=== PATIENT | female | born 1965 | race Caucasian/White ===

== ENCOUNTER 2022-12-27 09:26 | Outpatient (OUT) | payer BC, OTHER, SELFPAY ==
[2022-12-27 10:46] LABS: Alanine Aminotransferase 19 U/L (14-59); Albumin Globulin Ratio 0.9; Albumin Level 3.4 g/dL (3.4-5.0); Alkaline Phosphatase 98 U/L (46-116); Anion Gap 16.1; Aspartate Amino Transferase 20 U/L (15-37); Bilirubin Total 0.3 mg/dL (0.2-1.0); Carbon Dioxide 22.7 mmol/L (21.0-32.0); Chloride 105 mmol/L (98-107); Estimated GFR (African America 47 (>=60); Estimated GFR (Non-African Ame 38 (>=60); Glucose 101 mg/dL (74-106); Potassium 3.8 mmol/L (3.5-5.1); Sodium 140 mmol/L (136-145); Total Protein 7.4 g/dL (6.4-8.2)
[2022-12-27 11:11] LABS: Cholesterol 193 mg/dL (<=200); Triglycerides 234 mg/dL (<=150); VLDL CHOLESTEROL 46.8 mg/dL
[2022-12-27 11:12] LABS: Chol HDL Ratio 3.8; HDL Cholesterol 51 mg/dL (40-60); Thyroid Stimulating Hormone 3.409 uIU/mL (0.358-3.740)
== END 2022-12-27 09:27 ==
LOC: LAB 09:26
PROVIDERS: PCP Family Medicine
DX: Z79.899 Other long term (current) drug therapy (principal)
CPT/HCPCS: 36415; 80053; 80061; 84443

== ENCOUNTER 2023-05-16 08:41 | Outpatient (OUT) | payer BC, OTHER, SELFPAY ==
[2023-05-16 10:04] LABS: Creatinine Urine Random 50.93 mg/dL (20.00-300.00); Microalbum Creatinine Ratio Ur 25.5 mg/g (0.0-29.9); Microalbumin Urine Random <1.3 mg/dL (<=30.0)
[2023-05-16 10:35] LABS: Alanine Aminotransferase 17 U/L (14-59); Albumin Globulin Ratio 0.9; Albumin Level 3.5 g/dL (3.4-5.0); Alkaline Phosphatase 124 U/L (46-116); Aspartate Amino Transferase 15 U/L (15-37); BUN Creatinine Ratio 13.1; Bilirubin Total 0.3 mg/dL (0.2-1.0); Calcium 8.8 mg/dL (8.5-10.1); Carbon Dioxide 20.8 mmol/L (21.0-32.0); Chloride 104 mmol/L (98-107); Estimated GFR (African America 45 (>=60); Estimated GFR (Non-African Ame 37 (>=60); Globulin 3.9 g/dL; Glucose 98 mg/dL (74-106); Potassium 3.8 mmol/L (3.5-5.1); Sodium 138 mmol/L (136-145); Total Protein 7.4 g/dL (6.4-8.2)
[2023-05-17 04:07] LABS: Estradiol 41.4 pg/mL (.)
== END 2023-05-16 08:42 | disposition home or self-care (01) ==
LOC: LAB 08:42
PROVIDERS: PCP Internal Medicine; Visit Provider Internal Medicine
DX: R79.89 Other specified abnormal findings of blood chemistry (principal); Z79.890 Hormone replacement therapy
CPT/HCPCS: 36415; 80053; 82043; 82570; 82670

== ENCOUNTER 2023-06-27 08:46 | Outpatient (OUT) | payer BC, OTHER, SELFPAY ==
--- NOTE | 2023-06-27 08:51 | US_ITS ---
The [address] [address] Patient Name: ANIYAH LAY MRN: [facility]:[id number] date: 1965 Sex: F Assigned Patient Location: [place] Current Patient Location: US Accession/Order Number: [id number] Exam Date: 06/27/2023 08:58 Report Date: 06/27/2023 09:58 At the request of: SHAIKH PARAG Procedure: US renal BI EXAMINATION: US renal BI HISTORY: Stage 3A Chronic Kidney Disease N18.31 COMPARISON: No relevant comparison available. TECHNIQUE: Ultrasound examination was performed of the bladder. FINDINGS: Right Kidney: Normal in size and contour. Cortical thinning, the cortex measures 0.9 cm. Increased cortical echotexture with no solid cortical mass. No hydronephrosis or obstructing nephrolithiasis. Height: 4.0 cm Length: 8.8 cm Width: 4.9 cm Left Kidney: Normal in size and contour. Cortical thinning, the cortex measures 0.9 cm. Increased cortical echotexture. Area of isoechogenicity in the midpole cortex measuring 2.0 x 1.9 x 2.0 cm. No hydronephrosis or obstructing nephrolithiasis Height: 4.2 cm Length: 9.9 cm Width: 5.1 cm The urinary bladder volume is 367 mL. Ureteral jets are not visualized US/US renal BI IMPRESSION: 2 cm area of hypoechogenicity left mid pole cortex. Consider follow-up CT exam or MRI without and with contrast for further characterization Bilateral renal cortical atrophy and increased echotexture consistent with known medical renal disease Electronically authenticated by: NETO TAO Date: 06/27/2023 09:58
== END 2023-06-27 08:47 | disposition home or self-care (01) ==
LOC: US 08:47
PROVIDERS: PCP Internal Medicine; Visit Provider Internal Medicine
DX: N18.31 Chronic kidney disease, stage 3a (principal)
CPT/HCPCS: 76775

== ENCOUNTER 2023-07-04 08:56 | Outpatient (OUT) | payer BC, OTHER, SELFPAY ==
--- OUTSIDE RECORDS SUMMARY | 2023-07-04 09:00 | XMS_ITS | CCD ---
Author Name Unknown Address [address] [facility] [address] [place] [address] Organization [facility] Care Team Providers Care Biomedical Engineering Professor Name Role Phone ELIANE BEEBE Admitting Unavailable ELIANE BEEBE Attending Unavailable SANDRA LIZARRAGA Consulting Unavailable Justin Che II Unavailable Christiana Lazaro Unavailable Bahman Meneses Unavailable Ethan Coats Primary Care Unavailable Abimael Parks Attending Unavailable Abimael Parks Admitting Unavailable JORGE L, DR ROONEY Admitting Unavailable JORGE L, DR ROONEY Primary Care Unavailable JORGE L, DR ROONEY Consulting Unavailable JOHANNESBURG, DR ROONEY Attending Unavailable DARIA, DR JAY Osuna Consulting Unavailable BECCA THOMAS Admitting Unavailable BECCA THOMAS Consulting Unavailable BECCA THOMAS Attending Unavailable JORGE L, DR ROONEY Primary Care Unavailable SHAIKH TUTTLE Attending Unavailable Allergies Allergy Classification Reported Allergen(s) Allergy Type Date of Onset Reaction(s) Facility (1 source) tree nut, unspecified; Translations: [TREE NUTS] Propensity to adverse reactions to drug (disorder) 07-28-19 [place] [facility] Rep[facility] (1 source) BEE VENOM PROTEIN (HONEY BEE); Translations: [BEE VENOM PROTEIN (HONEY BEE)] Propensity to adverse reactions to drug (disorder) 11-30-19 [facility] Repository (6 sources) Ciprofloxacin Drug Allergy Unknown Guided Interventions Other (6 sources) gabapentin Drug Allergy Unknown Guided Interventions Other (6 sources) HYDROmorphone Drug Allergy Unknown Guided Interventions Other (6 sources) pregabalin Drug Allergy Unknown Guided Interventions Other (6 sources) codeine, depakote, bactrium, sulfa, bees walnuts Propensity to adverse reactions Unknown Guided Interventions Other (1 source) Acetaminophen / HYDROcodone Drug Allergy 11-03-19 15 [facility] Repository (1 source) bee venom Drug allergy (disorder) 11-30-19 15 [facility] Repository (1 source) Codeine Drug Allergy 11-03-19 15 [facility] Repository (1 source) HYDROmorphone Drug Allergy 11-30-19 15 [facility] Repository (1 source) Sulfamethoxazole / Trimethoprim Drug Allergy 11-03-19 15 [facility] Repository (1 source) Valproate Drug Allergy 11-03-19 15 [facility] Repository (1 source) Misc-Food; Translations: [Misc-Food] Food allergy (disorder) 11-03-19 15 [facility] Repository Medications Current Medications Medication Drug Class(es) Dates Sig (Normalized) Sig (Original) alosetron 0.5 mg oral tablet (1 source) Serotonin-3 Receptor Antagonist Start: 08-01-2020 take 1 tablet by mouth every twenty-four hours Alosetron HCl 0.5 MG 1 tablet Orally daily for 30 days Jul, Active Biotin (3 sources) Biotin Active busPIRone (2 sources) BuSpar Active take 1 tablet by mouth twice nino ly BuSpar 10 MG 1 tablet Orally Twice a day Active Calcium & Magnesium Carbonates (3 sources) Calcium & Magnes ium Carbonates Active Centrum Silver 50+Women (1 source) Centrum Silver 5 0+Women Active Citalopram (2 sources) Serotonin Reuptake Inhibitor Citalopram Hydrobrom edith Active take 1 tablet by benedicto th every twenty-four hours Citalopram Hydrobromide 20 MG 1 tablet Orally Once a day Active dicyclomine hydrochloride 20 mg oral tablet (5 sources) Anticholinergic Start: 04-30-2018 take 1 tablet by mouth every twenty-four hours Dicyclomine HCl 20 mg 1 tablet Orally once a day for 30 days Apr, Active take 1 tablet by benedicto th every eight hours Dicyclomine HCl 20 MG 1 tablet Orally Th ree times a day Active Elderberry preparation (3 sources) Elderberry Activ e [id number] 0.3 ml EPINEPHrine 1 mg/ml auto-injector (1 source) alpha-Adrenergic Agonist, beta-Adrenergic Agonist, Catecholamine EPINEPHrine 0.3 MG/0.3ML as directed Injection Active 1 ml erenumab-aooe 70 mg/ml auto-injector (1 source) inject 70 mg by subcutaneous injection every month Aimovig 70 MG/ML as directed Subcutaneous ONCE A MONTH Active estrogens, conjugated (detention) 0.625 mg oral tablet (6 sources) Estrogen take 1 tablet by mouth every twenty-four hours Premarin 0.625 MG 1 tablet Orally Once a day for 30 Active Magnesium (3 sources) Magnesium Active Multi For Her 50+ (3 sources) Multi For Her 50 + Active mupirocin 0.02 mg/mg topical ointment (1 source) RNA Synthetase Inhibitor Antibacterial Start: Mupirocin 2 % 1 application Externally Twice a day for 5 day(s) Jun, Active omeprazole 20 mg delayed release oral capsule (4 sources) Proton Pump Inhibitor Start: take 1 capsule by mouth once daily Omeprazole 20 MG 1 capsule 30 minutes before morning meal Orally Once a day for 90 days Oct, Active 24 hr paliperidone 6 mg extended release oral tablet (4 sources) Atypical Antipsychotic take 1 tablet by mouth every twenty-four hours Paliperidone ER 6 MG 1 tablet in the morning Orally Once a day Active take 1 tablet by benedicto th every twenty-four hours Paliperidone ER 3 MG 1 tablet in the morning Orally Once a day Active pramoxine hydrochloride 10 mg/ml rectal foam (1 source) Start: 06-17-2019 Proctofoam 1 % as directed Rectal PRN for 30 day(s) Jun, Active sucralfate 1000 mg oral tablet (4 sources) Aluminum Complex Start: 08-27-2021 take 1 tablet by mouth every six hours Sucralfate 1 GM 1 tablet on an empty stomach Orally qid for 90 day(s) Aug, Active Carafate Active take 1 capsule by mouth twice da inna Sucralfate 1 GM 1 capsule Oral twice times a day for 30 days Active tiZANidine (1 source) Central alpha-2 Adrenergic Agonist tiZANidine HCl Activ e topiramate 100 mg oral tablet (6 sources) take 1 tablet by mouth every twenty-four hours Topamax 100 MG 1 tablet Orally Once a day Active Topamax Active take 1 capsule by mo uth three times daily Topiramate 100 MG 1 capsule Oral TID for 30 Active traZODone hydrochloride 50 mg oral tablet (4 sources) Serotonin Reuptake Inhibitor take 1-2 tablets by mouth once daily traZODone HCl 50 MG 1-2 TABLETS Orally Once a day Active Turmeric extract (3 sources) Turmeric Active Problems Active Problems Problem Classification Problem Date Documented Da te Episodic/Chronic Abdominal pain (12 sources) Right upper quadrant pain; Translations: [Right upper quadrant pain] Episodic Anal and rectal conditions (6 sources) Rectal pain; Translations: [Other specified diseases of anus and rectum] Episodic Chronic kidney disease (6 sources) Chronic kidney disease stage 2; Translations: [Chronic kidney disease, stage 2 (mild)] Chronic Esophageal disorders (10 sources) Gastroesophageal reflux disease; Translations: [Gastro-esophageal reflux disease without esophagitis] Onset: 2 Resolved: 2 Chronic Gastritis and duodenitis (6 sources) Gastritis; Translations: [Gastritis, unspecified, without bleeding] Episodic Gastrointestinal hemorrhage (18 sources) Dark stools; Translations: [Melena] Episodic Headache; including migraine (6 sources) Headache; Translations: [Headache] Episodic Hemorrhoids (6 sources) Hemorrhoids; Translations: [Unspecified hemorrhoids] Episodic Intestinal infection (12 sources) Clostridial enteric disease; Translations: [Enterocolitis due to Clostridium difficile, not specified as recurrent] Episodic Malaise and fatigue (12 sources) Fatigue; Translations: [Other fatigue] Episodic Nausea and vomiting (12 sources) Vomiting; Translations: [Vomiting, unspecified] Episodic Noninfectious gastroenteritis (12 sources) Microscopic colitis; Translations: [Other specified noninfective gastroenteritis and colitis] Episodic Other and unspecified benign neoplasm (6 sources) Lipoma (clinical); Translations: [Benign lipomatous neoplasm, unspecified] Episodic Other gastrointestinal disorders (6 sources) Irritable bowel syndrome with diarrhea; Translations: [Irritable bowel syndrome with diarrhea] Chronic Other gastrointestinal disorders (6 sources) Heartburn; Translations: [Heartburn] Episodic Other gastrointestinal disorders (6 sources) Swollen abdomen; Translations: [Abdominal distension (gaseous)] Episodic Other gastrointestinal disorders (12 sources) Diarrhea; Translations: [Diarrhea, unspecified] Episodic Other gastrointestinal disorders (12 sources) Constipation; Translations: [Constipation, unspecified] Episodic Other liver diseases (6 sources) Increased creatine kinase level; Translations: [Abnormal levels of other serum enzymes] Episodic Other nervous system disorders (6 sources) Burning sensation; Translations: [Other disturbances of skin sensation] Episodic Other nutritional; endocrine; and metabolic disorders (6 sources) Weight loss; Translations: [Abnormal weight loss] Episodic Other skin disorders (6 sources) Rash and other nonspecific skin eruption; Translations: [Rash] Episodic Regional enteritis and ulcerative colitis (6 sources) Pseudopolyposis of colon; Translations: [Inflammatory polyps of colon without complications] Chronic Unclassified (3 sources) LOW BACK PAIN, UNSPECIFIED; Translations: [LOW BACK PAIN, UNSPECIFIED] Onset: Past or Other Problems Problem Classification Problem Date Documented Da te Episodic/Chronic Open wounds of extremities (1 source) Laceration without foreign body of left middle finger without damage to nail, initial encounter Onset: 07-12-2021 Resolved: 07-12-2021 Episodic Other circulatory disease (4 sources) Other specified symptoms and signs involving the circulatory and respiratory systems; Translations: [OTH SPEC SX SIGNS INVLV CIRC RS] Onset: 07-02-2022 Episodic Other gastrointestinal disorders (2 sources) Diarrhea, unspecified Onset: 10-16-2021 Resolved: 01-17-2022 Episodic Sprains and strains (1 source) Sprain of other ligament of left ankle, initial encounter Onset: 07-04-2021 Resolved: 07-04-2021 Episodic Unclassified (1 source) LOW BACK PAIN, UNSPECIFIED; Translations: [LOW BACK PAIN, UNSPECIFIED] Onset: 06-07-2022 Results Test Name Value Interpretation Reference Range Facil ity XR LSPINE MIN 4 VIEWSon 05-15 XR LSPINE MIN 4 VIEWS EXAMINATION: XR LSPINE MIN 4 VIEWS HISTORY: Low back pain COMPARISON: No relevant comparison available. FINDINGS: BONES: Slight left convex curvature of lumbar spine. Suspect bilateral pars interarticularis fractures at L5-S1, likely intraluminal. No convincing acute fractures. Mild degenerative facet arthropathy L4-L5, L5-S1.. DISC SPACES: No significant disc height narrowing, subluxation, or endplate abnormality. PARASPINOUS: Negative. No paraspinous abnormality is seen. OTHER: Negative. IMPRESSION: 1. No appreciable acute abnormality. 2. Mild degenerative changes of lower lumbar spine. 3. 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 No anterior listhesis of L5, but this could be contributing to low back pain. Electronically authenticated by: JAY HUFF Date: 2022-06-07 12:11 Normal [facility] B-Type Natriuretic Peptideon 10-10-2021 Natriuretic peptide B (Bld) [Mass/Vol] 64.0 pg/mL Normal 5-100 [facility] Comment on above: Result Comment: PERF ORMED BY: [place] [address] PATHOLOGIST DENTURE WAXER SHIMA SY M.D. Performed By: #### C K, CKMB, CBC, BMP, BNP #### [address] Basic Metabolic Panelon 09-13 Calcium [Mass/Vol] 9.3 mg/dL Normal 8.2-10.2 [facility] Comment on above: Performed By: #### C K, CKMB, CBC, BMP, BNP #### [address] Chloride [Moles/Vol] 104 mmol/L Normal 95-114 [facility] Comment on above: Performed By: #### C K, CKMB, CBC, BMP, BNP #### [address] CO2 [Moles/Vol] 19.9 mmol/L Low 22.0-30.0 [facility] Comment on above: Performed By: #### C K, CKMB, CBC, BMP, BNP #### [address] Creatinine [Mass/Vol] 1.27 mg/dL High 0.44-1.03 [facility] Comment on above: Performed By: #### C K, CKMB, CBC, BMP, BNP #### [address] Creatinine Clr Calc Pharmacy 45.75 Normal [facility] Comment on above: Result Comment: PERF ORMED BY: [place] [address] PATHOLOGIST DENTURE WAXER SHIMA SY M.D. Performed By: #### C K, CKMB, CBC, BMP, BNP #### [address] Estimated GFR ( Demetra 52 Normal [facility] Comment on above: Result Comment: GFR estimated reference range: According to KDOQI guidelines, <60 ml/min/1.73m2 is sufficient to diagnose a patient with chronic kidney disease. Performed By: #### C K, CKMB, CBC, BMP, BNP #### [address] Estimated GFR (Non- Am 43 [facility] Comment on above: Performed By: #### C K, CKMB, CBC, BMP, BNP #### [address] Glucose [Mass/Vol] 96 mg/dL Normal 70-100 [facility] Comment on above: Result Comment: Colp Glucose Reference Range is dependent on time and content of last meal. Glucose of more than 200 mg/dL in a nonstressed, ambulatory subject supports the diagnosis of Diabetes Mellitus. ADA recommended reference range Performed By: #### C K, CKMB, CBC, BMP, BNP #### [address] Potassium [Moles/Vol] 3.7 mmol/L Normal 3.5-5.1 [facility] Comment on above: Performed By: #### C K, CKMB, CBC, BMP, BNP #### [address] Sodium [Moles/Vol] 135 mmol/L Low 136-146 [facility] Comment on above: Performed By: #### C K, CKMB, CBC, BMP, BNP #### [address] Urea nitrogen [Mass/Vol] 17 mg/dL Normal 9-23 [facility] Comment on above: Performed By: #### C K, CKMB, CBC, BMP, BNP #### [facility] [address] COVID-19 Antigenon 2 COVID-19 Antigen Healthcare Worker?: N Bella Reference Bella Reference Negative SARS-CoV+SARS-CoV-2 (COVID-19) Ag [Presence] in Respiratory specimen by Rapid immunoassay Negative for SARS Antigen by BLAYNE COVID19 Blank Space Bella Disclaimer Negative results, from patients with symptom Bella Disclaimer onset beyond five days, should be treated as Bella Disclaimer presumptive and confirmation with a molecular Bella Disclaimer assay, if necessary, for patient management, Bella Disclaimer may be performed. Negative results do not rule Bella Disclaimer out COVID-19 and should not be used as the sole Bella Disclaimer basis for treatment or patient management Bella Disclaimer decisions, including infection control decisions. Bella Disclaimer Negative results should be considered in the Bella Disclaimer context of a patient's recent exposures, history Bella Disclaimer and the presence of clinical signs and symptoms Bella Disclaimer consistent with COVID-19. COVID19 Blank Space Bella Disclaimer The Bella SARS Antigen BLAYNE does not differentiate Bella Disclaimer between SARS-CoV and SARS-CoV-2. COVID19 Blank Space Bella Disclaimer This test was developed and its performance Bella Disclaimer characteristic determined by [facility] and Bella Disclaimer validated at [facility]. This Bella Disclaimer test has not been FDA cleared or approved. This Bella Disclaimer test has been authorized by FDA under an Emergency Use Bella Disclaimer Authorization (EUA). This test has been validated Bella Disclaimer in accordance with the FDA's Guidance Document (Policy Bella Disclaimer for Diagnostics Testing in Laboratories Certified to Bella Disclaimer Perform High Complexity Testing under CLIA prior to Bella Disclaimer Emergency Use Authorization for Coronavirus Bella Disclaimer iseas during the Public Health Emergency) Bella Disclaimer issued on October 14, 2019. This test is only authorized Bella Disclaimer for the duration of time the declaration that Bella Disclaimer circumstances exist justifying the authorization of Bella Disclaimer the emergency use of in vitro diagnostic tests for Bella Disclaimer detection of SARS-CoV-2 virus and/or diagnosis of Bella Disclaimer COVID-19 infection under section 564(b)(1) of the Bella Disclaimer Act, 21 U.S.C. 360bbb-3(b)(1), unless the Bella Disclaimer authorization is terminated or revoked sooner. PERFORMED BY: [place] [address] PATHOLOGIST DENTURE WAXER SHIMA SY M.D. Normal [facility] Comment on above: Performed By: #### F CARLA, COVID-19 BELLA, SOFIANEG #### [facility] [address] [place] [address] Complete Blood Count Auto Di ffon 10-10-2021 Basophils (Bld) [#/Vol] 0.1 10*3/uL Normal 0.0-0.2 [facility] Comment on above: Result Comment: PERF ORMED BY: [place] [address] PATHOLOGIST DENTURE WAXER SHIMA SY M.D. Performed By: #### C K, CKMB, CBC, BMP, BNP #### [facility] [address] [place] [address] Basophils/100 WBC (Bld) 1.4 % Normal . [facility] Comment on above: Performed By: #### C K, CKMB, CBC, BMP, BNP #### [address] Eosinophils (Bld) [#/Vol] 0.2 10*3/uL Normal 0.0-0.45 [facility] Comment on above: Performed By: #### C K, CKMB, CBC, BMP, BNP #### [address] Eosinophils/100 WBC (Bld) 2.3 % Normal . [facility] Comment on above: Performed By: #### C K, CKMB, CBC, BMP, BNP #### [address] Erythrocyte distribution width (RBC) [Ratio] 13.2 % Normal 11.9-15.3 [facility] Comment on above: Performed By: #### C K, CKMB, CBC, BMP, BNP #### [address] Hematocrit (Bld) [Volume fraction] 41.5 % Normal 34.0-46.4 [facility] Comment on above: Performed By: #### C K, CKMB, CBC, BMP, BNP #### [address] Hemoglobin (Bld) [Mass/Vol] 13.8 g/dL Normal 11.8-15.4 [facility] Comment on above: Performed By: #### C K, CKMB, CBC, BMP, BNP #### [address] Lymphocytes (Bld) [#/Vol] 3.6 10*3/uL Normal 1.00-4.8 [facility] Comment on above: Performed By: #### C K, CKMB, CBC, BMP, BNP #### [address] Lymphocytes/100 WBC (Bld) 39.0 % Normal . [facility] Comment on above: Performed By: #### C K, CKMB, CBC, BMP, BNP #### [address] MCH (RBC) [Entitic mass] 30.7 pg Normal 24.7-34.3 [facility] Comment on above: Performed By: #### C K, CKMB, CBC, BMP, BNP #### [address] MCV (RBC) [Entitic vol] 91.9 fL Normal 80-100 [facility] Comment on above: Performed By: #### C K, CKMB, CBC, BMP, BNP #### [address] Mean Corpuscular HGB Conc 33.4 g/dL Normal 32.0-35.0 [facility] Comment on above: Performed By: #### C K, CKMB, CBC, BMP, BNP #### [address] Monocytes (Bld) [#/Vol] 0.8 10*3/uL Normal 0.0-0.8 [facility] Comment on above: Performed By: #### C K, CKMB, CBC, BMP, BNP #### [address] Monocytes/100 WBC (Bld) 9.0 % Normal . [facility] Comment on above: Performed By: #### C K, CKMB, CBC, BMP, BNP #### [address] Neutrophils (Bld) [#/Vol] 4.4 10*3/uL Normal 1.8-7.7 [facility] Comment on above: Performed By: #### C K, CKMB, CBC, BMP, BNP #### [address] Neutrophils/100 WBC (Bld) 48.3 % Normal . [facility] Comment on above: Performed By: #### C K, CKMB, CBC, BMP, BNP #### [address] Nucleated RBC/100 WBC (Bld) [Ratio] 0.1 % Normal 0-0.5 [facility] Comment on above: Performed By: #### C K, CKMB, CBC, BMP, BNP #### [address] Platelet mean volume (Bld) [Entitic vol] 7.0 fL Normal 6.3-10.7 [facility] Comment on above: Performed By: #### C K, CKMB, CBC, BMP, BNP #### [address] Platelets (Bld) [#/Vol] 237 10*3/uL Normal 150-450 [facility] Comment on above: Performed By: #### C K, CKMB, CBC, BMP, BNP #### [address] RBC (Bld) [#/Vol] 4.51 10*6/uL Normal 3.60-5.00 [facility] Comment on above: Performed By: #### C K, CKMB, CBC, BMP, BNP #### [address] WBC (Bld) [#/Vol] 9.1 10*3/uL Normal 4.5-11.0 [facility] Comment on above: Performed By: #### C K, CKMB, CBC, BMP, BNP #### [address] Creatine Kinaseon 10-10-2021 CK [Catalytic activity/Vol] 69 U/L Normal 22-269 [facility] Comment on above: Performed By: #### C K, CKMB, CBC, BMP, BNP #### [address] Creatinine Kinase MBon 10-10 CK.MB [Mass/Vol] 3.1 ng/mL Normal 0.6-6.3 [facility] Comment on above: Performed By: #### F CARLA, COVID-19 BELLA, SOFIANEG #### [facility] [address] [place] [address] CKMB Relative Index 4.4 % High 0.00-2.50 [facility] Comment on above: Result Comment: PERF ORMED BY: [place] [address] PATHOLOGIST DENTURE WAXER SHIMA SY M.D. Performed By: #### F SANDER AGUIRREID-19 BELLA, SOFIANEG #### [facility] [address] [place] [address] ECG 12 lead ECGon 10-10-2021 ECG 12 lead ECG [facility] [place] [address] [place] [address] Electrocardiograph Report Signed Patient: Мария Roman MR#: [id number] : 1965 Acct:[id number] Age/Sex: 55 / F ADM Date: 10/10/21 Loc: ER Room: Type: [facility] ER Attending Dr: Ordering Provider: Abimael Parks DO Date of Service: 10/10/21 ECG/ECG 12 lead ECG: Chest Pain Copies to: Test Reason : Blood Pressure : 158/100 mmHG Vent. Rate : 087 BPM Atrial Rate : 087 BPM P-R Int : 156 ms QRS Dur : 082 ms QT Int : 396 ms P-R-T Axes : 082 077 057 degrees QTc Int : 476 ms Normal sinus rhythm Normal ECG When compared with ECG of 10-FEB-2014 18:15, T wave inversion no longer evident in Anterior leads Confirmed by ABIMAEL PARKS DO ([id number]), features editor Trent Garay ([id number]) on 10/11/2021 11:15:22 AM Referred By: Electronically Signed By:ABIMAEL PARKS DO Transcribed By: MUS Signed By Abimael Parks DO 1115 Normal [facility] Influenza A and B Antigenon 10-10-2021 Influenza A and B Antigen Note 6 be below the detection limit of the test. Note 4 Infection due to influenza cannot be ruled-out Note 5 because the antigen present in the sample may Flu A Result Negative for Influenza A Antigen Flu B Result Negative for Influenza B Antigen Note 8 Reference range = Negative Note 1 Note2 Culture or molecular confirmation of negative Note 3 samples is recommended. Note 7 PERFORMED BY: [place] [address] PATHOLOGIST DENTURE WAXER SHIMA SY M.D. Normal [facility] Comment on above: Performed By: #### Conchis AGUIRRE COVID-19 BELLA, SOFIANEG #### [address] Bella Ag Negativeon 10-11-19 22 Bella Ag Negative Negative Normal Negative [facility] Comment on above: Result Comment: This is a duplicate Bella SARS Antigen (BLAYNE) result to be used for statistical tracking purpose only. PERFORMED BY: [place] [address] PATHOLOGIST DENTURE WAXER SHIMA SY M.D. Performed By: #### Conchis AGUIRRE COVID-19 BELLA, SOFIANEG #### [address] Troponin I High Sensitivityo n 10-10-2021 Troponin I High Sensitivity 12 pg/mL Normal 0-15 [facility] Comment on above: Result Comment: PERF ORMED BY: [place] [address] PATHOLOGIST DENTURE WAXER SHIMA SY M.D. Performed By: #### H S TROP #### [facility] [address] [place] [address] [place] XR chest 1V portableon 10-10 XR chest 1V portable [facility] [place] [address] [place] [address] XRay Report Signed Patient: Мария Roman MR#: [id number] : 1965 Acct:[id number] Age/Sex: 55 / F ADM Date: 10/10/21 Loc: ER Room: Type: [facility] ER Attending Dr: Ordering Provider: Abimael Parks DO Date of Service: 10/10/21 XR/XR chest 1V portable: Chest Pain Copies to: Abimael Hernadez Kasey XR chest 1V portable 10/10/2021 6:45 PM SIGNS AND SYMPTOMS: Left-sided chest pain radiating into left arm with dizziness PROTOCOL: Frontal radiograph of the chest COMPARISON: None FINDINGS: The trachea is midline. The heart and mediastinal structures are within normal limits. The lung parenchyma is clear. The bony thorax is intact. There is a dextro convex curvature of the thoracic spine. XR/XR chest 1V portable IMPRESSION: No acute cardiopulmonary pathology. Impression dictated by: David Walker M.D.10/10/2021 7:52 PM Dictation Location: [place] [address] Transcribed By: [facility] 10/10/211951 Dictated By: David Walker II, MD 10/10/211949 Signed By: 10/10/211951 [facility] XR ANKLE LEFT 3+ VIEWS ([place] [facility]on [facility]-29-2021 XR ANKLE LEFT 3+ VIEWS (STANDARD) EXAMINATION: XR ANKLE LEFT 3+ VIEWS (STANDARD) 07/29/2021 8:44 pm HISTORY: ORDERING SYSTEM PROVIDED HISTORY: pain left ankle post fall, TECHNOLOGIST PROVIDED HISTORY: Injury/Trauma Reason for exam: pain Cancer History: u Surgery, RadiationHistory: u Encounter Type: Initial Mechanism of injury: fall ORDERING SYSTEM PROVIDED DIAGNOSIS CODES: COMPARISON: None. FINDINGS: Three views are provided which demonstrate normally aligned ankle mortise without definite fractures or dislocations. Base of the 5th metatarsal appears intact. No significant soft tissue swelling, calcifications or radiopaque foreign bodies. IMPRESSION: No obvious fractures or dislocations. [facility] Workstation ID: [id number] Dictated by: LOULOU TREVINO on FriJul 29, 2021 8:55:54 PM EST Transcribed by: DARYA SCHILLING on FriJul 29, 2021 8:57:24 PM EST Finalized by: LOULOU TREVINO on FriJul 29, 2021 10:03:27 PM EST [facility] Comment on above: Order Comment: Injur y/Trauma or Illness?:Injury/Trauma How long have you had these symptoms (acute/chronic)?:Acute Reason for exam?:pain History of cancer?:u Surgeries, chemotherapy, or radiation?:u Type of Exam?:Initial Mechanism of injury?:fall Vital Signs Date Time Vital Sign Value Performing Clinician Facility 01-17-2022 16:30-0400 Body height 168.91 cm Bahman Meneses [facility] Other 01-17-2022 16:30-0400 Body mass index (BMI) [Ratio] 21.62 kg/m2 Bahman Meneses [facility] Other 01-17-2022 16:30-0400 Body weight 61.69 kg Bahman Meneses Other [facility] Other 10-16-2021 16:45-0400 Body height 168.91 cm Bahman Meneses [facility] Other 10-16-2021 16:45-0400 Body mass index (BMI) [Ratio] 20.98 kg/m2 Bahman Meneses Other [facility] Other 10-16-2021 16:45-0400 Body weight 59.88 kg Bahman Meneses Other [facility] Other 07-12-2021 11:05-0500 Body height 168.91 cm Christiana Iveth Other [facility] Other 07-12-2021 11:05-0500 Body temperature 97.5 [degF] Christiana Ginty Other [facility] Other 07-12-2021 11:05-0500 Diastolic blood pressure 106 mm[Hg] Christiana Ginty Other [facility] Other 07-12-2021 11:05-0500 Respiratory rate 18 /min Christiana Ginty Other [facility] Other 07-12-2021 11:05-0500 SaO2% (BldA) [Mass fraction] 98 % Christiana Ginty Other [facility] Other 07-12-2021 11:05-0500 Systolic blood pressure 153 mm[Hg] Christiana Ginty Other [facility] Other 07-04-2021 12:00-0500 Body height 168.91 cm [employer] Other [facility] Other 07-04-2021 12:00-0500 Body mass index (BMI) [Ratio] 17.88 kg/m2 [employer] Other [facility] Other 07-04-2021 12:00-0500 Body weight 51.03 kg [employer] Other [facility] Other Encounters Encounter Date Encounter Type Care Provider Facility Start: 06-16-2023 End: 06-16-2023 ambulatory SHAIKH PARAG Not Available Start: 07-02-2022 End: 07-03-2022 ambulatory BECCA THOMAS Facility:[facility] Start: 06-07-2022 End: 06-08-[address] ETHAN COATS Facility:[facility] Start: 01-28-2022 End: 01-28-2022 ambulatory Bahman Meneses [facility] Other Start: 01-28-2022 Telephone encounter Bahman Bentley [facility] Start: 01-17-2022 End: 01-17-2022 ambulatory Bahman Meneses Other [facility] Other Start: 01-17-2022 Office outpatient visit 15 minutes Bahman Meneses [facility] Start: 11-09-2021 End: 11-09-2021 ambulatory Bahman Meneses Other [facility] Other Start: 11-09-2021 Telephone encounter Bahman Bentley [facility] Start: 10-16-2021 End: 10-16-2021 ambulatory Bahman Meneses Other [facility] Other Start: 10-16-2021 Office outpatient visit 15 minutes Bahman Meneses [facility] Start: 10-10-2021 End: 10-11-2021 Emergency department patient visit [facility] Facility:[facility] Start: 07-28-2021 End: 08-04-2021 Evaluation and management of inpatient [facility] Start: 07-12-2021 End: 07-12-2021 ambulatory Christiana Lazaro Other [facility] Other Start: 07-12-2021 Office outpatient visit 15 minutes Christiana Lazaro [facility] Start: 07-04-2021 End: 07-04-2021 ambulatory Justin [place] [facility] Other [facility] Other Start: 07-04-2021 Office outpatient ne w 30 minutes Justin [place] [facility] Immunizations Immunization Date Immunization Notes Care Provider Fa adrián 07-12-2021 tetanus and diphther ia toxoids, adsorbed, preservative free, for adult use (5 Lf of tetanus toxoid and 2 Lf of diphtheria toxoid) Christiana Ginty Other [facility] Other Payers Date Payer Category Payer Unknown [id number] 1965 Unknown [id number] 1965 Unknown [id number] 1965 Unknown [id number] 1965 Unknown [id number] 1961 Unknown [id number] Medicare [id number] 2.1 [id number] Social History Date Type Detail Facility Unknown if ever smoked [facility] Other Sex Assigned At Sex Assigned At Bir th [facility] Other Evaluation note 01-28-2022 Note Date & Type Note Facility 01-28-2022 Evaluation note Encounter Date Diagnosis Assessment Notes Jan, GERD (gastroesop hageal reflux disease) (ICD-10 - K21.9) [facility] Other Evaluation note 01-17-2022 Note Date & Type Note Facility 01-17-2022 Evaluation note Encounter Date Diagnosis Assessment Notes Jan, Diarrhea (ICD-10 - R19.7) Continue Dicyclomine Jan, GERD (gastroesoph ageal reflux disease) (ICD-10 - K21.9) Continue Omeprazole without change [facility] Other Evaluation note 11-09-2021 Note Date & Type Note Facility 11-09-2021 Evaluation note Encounter Date Diagnosis Assessment Notes Oct, GERD (gastroesop hageal reflux disease) (ICD-10 - K21.9) [facility] Other Evaluation note 10-16-2021 Note Date & Type Note Facility 10-16-2021 Evaluation note Encounter Date Diagnosis Assessment Notes Oct, Diarrhea, unspecified (ICD-10 - R19.7) CONTINUE DICYCLOMINE DIRECTED RTO 3 MONTHS Oct, GERD (gastroesophag eal reflux disease) (ICD-10 - K21.9) STOP CARAFATE [facility] Other Evaluation note 07-12-2021 Note Date & Type Note Facility 07-12-2021 Evaluation note Encounter Date Diagnosis Assessment Notes Jun, Laceration of left middle finger without foreign body without damage to nail, initial encounter (ICD-10 - S61.213A) -5 sutures were placed in finger today -Tetanus injection provided in office -Return to UC or f/u with PCP for removal in 7-10 days -Keep dressing in place for the next 48 hours, unless it gets dirty or wet, then change dressing, apply nonstick telfa -After 48 hours may keep DIE DEVELOPER unless risk of getting dirty or irritated or if it begins to drain -Wash wound BID with warm soapy water, avoid scrubbing, pat dry -May wash hands and shower as normal, but do not soak hand in water, avoid dirty dish water, tubs, etc. -Use rx of Mupirocin ointment as directed -Watch for s/sx of infection: redness, swelling, drainage, pain, foul odor, red streaking, fever, chills: if occur follow up with UC or PCP right away -If finger becomes cold, pale, tingling, numbness, unable to move finger seek immediate care by ER -Review Education: Cuts Closed With Stitches: Care Instructions material was printed [facility] Other Evaluation note 07-04-2021 Note Date & Type Note Facility 07-04-2021 Evaluation note Encounter Date Diagnosis Assessment Notes Jun, Sprain of other ligament of left ankle, initial encounter (ICD-10 - S93.492A) Jun, Other I had a long discussion with the patient regarding the etiology of her left ankle pain. I feel that she has a mild ankle sprain. I educated her on rest, ice, compression, elevation therapy. Recommended that she continue with [id number] er oral anti-inflammat ories. Informed her that she can weight-bear as tolerated. Discussed some exercises with her for ankle sprain rehabilitation . I did recommend that we get her some formal physical therapy but she denied this that she does not want to venture out of the house. Furthermore, we provided her with educational pieces regarding ankle sprains. Also recommended that she follow-up with her primary care provider in regards to some of her spasms and MS . I will plan to see her back in 4 weeks to check on her progress. [facility] Other History general Narrative - Reported 04-08-2014 Note Date & Type Note Facility 04-08-2014 History general N arrative - Reported Type Medical History 04-08-14 EGD with biopsy, colonos copy Medical History Depression Medical History Insomnia Medical History Anxiety Medical History MS (multiple sclerosis) Medical History Renal cyst Medical History DDD (degenerative disc disease) Medical History Migraines Medical History stage 2 chronic kidney disease Medical History RUQ abdominal pain Medical History Constipation Medical History Decreased appetite Medical History Erosive gastritis Medical History Hernia, Hiatal Medical History Lipoma Medical History Diarrhea, unspecified Medical History Diarrhea, unspecified type Medical History EGD and Colonoscopy September 2017 Medical History C-DIFF 11/2019 Surgical History hysterectomy Surgical History gallbladder Surgical History appendecctomy Surgical History tubes tied/ reversed Surgical History adhesions removed Surgical History colonoscopy Surgical History EGD Hospitalization History see above Hospitalization History MS Hospitalization History [facility] [place] [facility] Other History general Narrative - Reported 04-08-2014 Note Date & Type Note Facility 04-08-2014 History general N arrative - Reported Type Medical History 04-08-14 EGD with biopsy, colonos copy Medical History Depression Medical History Insomnia Medical History Anxiety Medical History MS (multiple sclerosis) Medical History Renal cyst Medical History DDD (degenerative disc disease) Medical History Migraines Medical History stage 2 chronic kidney disease Medical History RUQ abdominal pain Medical History Constipation Medical History Decreased appetite Medical History Erosive gastritis Medical History Hernia, Hiatal Medical History Lipoma Medical History Diarrhea, unspecified Medical History Diarrhea, unspecified type Medical History EGD and Colonoscopy September 2017 Medical History C-DIFF 11/2019 Medical History bowel resection Surgical History hysterectomy Surgical History gallbladder Surgical History appendecctomy Surgical History tubes tied/ reversed Surgical History adhesions removed Surgical History colonoscopy Surgical History EGD Hospitalization History see above Hospitalization History MS Hospitalization History [facility] [place] [facility] Other Summary Purpose Family History No Family History Records FoundNo Family History Records FoundNo Family History Records FoundNo Family History Records Found Advance Directives No Advanced Directives Records FoundNo Advanced Directives Records FoundNo Advanced Directives Records FoundNo Advanced Directives Records Found Additional Source Comments INFORMATION SOURCE (unrecogn ized section and content) DATE CREATED AUTHOR 08/08/2021 [facility] DATE CREATED AUTHOR AUTHOR'S ORGANIZ ATION 08/17/[address] [facility] DATE CREATED AUTHOR AUTHOR'S ORGANIZ ATION 11/27/2022 [facility] DATE CREATED AUTHOR AUTHOR'S ORGANIZ ATION 06/18/2023 [facility] EPIC REASON FOR VISIT (unrecogniz ed section and content) Left Ankle PainFINGER LACERA TIONPATIENT HERE FOR ANNUAL VISIT FOR DIARRHEA. PATIENT WAS TO START ALOSETRON. PT IS NOT TAKING THE ALOESTRONmedicationPATIENT HERE FOR 3 MONTH FOLLOW UP TO DIARRHEA AND GERD. PATIENT WAS TO CONTINUE ON THE DICYCLOMINE, OMEPRAZOLE AND STOP THE CARAFATE.Refills FOR RECORDS PERTAINING TO PATIENTS WHO ARE OR HAVE BEEN ENROLLED IN A CHEMICAL DEPENDENCY/SUBSTANCEABUSE PROGRAM, SOME INFORMATION MAY BE OMITTED. This clinical summary was aggregated from multiple sources. Caution should be exercised in using it in the provision of clinical care. This summary normalizes information from multiple sources, and as a consequence, information in this document may materially change the coding, format and clinical context of patient data. In addition, data may be omitted in some cases. CLINICAL DECISIONS SHOULD BE BASED ON THE PRIMARY CLINICAL RECORDS. [employer] provides no warranty or guarantee of the accuracy or completeness of information in this document.
[2023-07-04 09:29] LABS: Anion Gap 17.7; BUN Creatinine Ratio 14.7; Calcium 9.3 mg/dL (8.5-10.1); Carbon Dioxide 22.4 mmol/L (21.0-32.0); Chloride 104 mmol/L (98-107); Estimated GFR (African America 41 (>=60); Estimated GFR (Non-African Ame 34 (>=60); Glucose 103 mg/dL (74-106); Potassium 4.1 mmol/L (3.5-5.1); Sodium 140 mmol/L (136-145)
== END 2023-07-04 08:57 | disposition home or self-care (01) ==
LOC: LAB 08:56
PROVIDERS: PCP Internal Medicine; Visit Provider Internal Medicine
DX: N18.31 Chronic kidney disease, stage 3a (principal)
CPT/HCPCS: 36415; 80048

== ENCOUNTER 2023-08-22 12:26 | Outpatient (OUT) | payer BC, OTHER, SELFPAY ==
--- NOTE | 2023-08-22 | MR_ITS ---
The [address] [address] Patient Name: ANIYAH LAY MRN: [facility]:[id number] date: 1965 Sex: F Assigned Patient Location: MRI Current Patient Location: Accession/Order Number: [id number] Exam Date: 08/22/2023 13:45 Report Date: 08/25/2023 08:15 At the request of: SHAIKH PARAG Procedure: MR abdomen wo/w con EXAMINATION: MR abdomen wo/w con HISTORY: Abnormal ultrasound of left kidney COMPARISON: No relevant comparison available. TECHNIQUE: A comprehensive examination was performed utilizing a variety of imaging planes and imaging parameters to optimize visualization of suspected pathology. Images were obtained without contrast. FINDINGS: LIVER: Visualized portions demonstrate no focal mass BILIARY: The gallbladder is nonvisualized PANCREAS: No lesion, fluid collection, ductal dilatation, or atrophy. SPLEEN: No enlargement or focal lesion. KIDNEYS: Multiple bilateral renal cortical hypodensities, nonenhancing. Cortical cysts are favored the largest along the left lateral midpole measures 1.2 x 0.6 cm. No focal solid mass ADRENALS: No mass or enlargement. AORTA/VASCULAR: No aneurysm or dissection. RETROPERITONEUM: No mass or adenopathy. BOWEL/MESENTERY: No visible mass, obstruction, or bowel wall thickening. ABDOMINAL WALL: No mass or hernia. BONES: No bony lesion or fracture. LUNG BASES: No visible pleural disease. Lung bases not well assessed with MRI. OTHER: Negative. MR/MR abdomen wo/w con IMPRESSION: No focal renal mass. The abnormality on ultrasound represents prominent midpole cortical tissue Electronically authenticated by: NETO TAO Date: 08/25/2023 08:15
[2023-08-22 13:53] LABS: Estimated GFR (African America 44 (>=60); Estimated GFR (Non-African Ame 36 (>=60)
== END 2023-08-22 12:27 | disposition home or self-care (01) ==
LOC: MRI 12:27
PROVIDERS: PCP Internal Medicine; Visit Provider Internal Medicine
DX: R93.422 Abnormal radiologic findings on diagnostic imaging of left kidney (principal)
CPT/HCPCS: 36415; 74183; 82565; 84520; A9575

== ENCOUNTER 2024-02-21 07:00 | Outpatient (OUT) | payer BC, OTHER, SELFPAY ==
--- OUTSIDE RECORDS SUMMARY | 2024-02-21 07:03 | XMS_ITS | CCD ---
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 Name Role Phone ELIANE BEEBE Admitting Unavailable ELIANE BEEBE Attending Unavailable SANDRA LIZARRAGA Consulting Unavailable Justin Che II Unavailable Christiana Lazaro Unavailable Bahman Meneses Unavailable Ethan Coats Primary Care Unavailable Abimael Parks Attending Unavailable Abimael Parks Admitting Unavailable JORGE L, DR ROONEY Admitting Unavailable JORGE L, DR ROONEY Primary Care Unavailable JORGE L, DR ROONEY Consulting Unavailable HOUSE, DR ROONEY Attending Unavailable DARIA, DR JAY Osuna Consulting Unavailable BECCA THOMAS Admitting Unavailable BECCA THOMAS Consulting Unavailable BECCA THOMAS Attending Unavailable JORGE L, DR ROONEY Primary Care Unavailable Herb MANAGER OF PROJECT MANAGEMENT, Margarette Unavailable Shaikh Hernandes MD Primary Care Provider Jorge Luis Barajas Unavailable MD Chinmay Manning Attending Provider [phone] SHAIKH HERNANDES Attending Unavailable SHAIKH HERNANDES Attending Unavailable SHAIKH HERNANDES Attending Unavailable SHAIKH HERNANDES Attending Unavailable Allergies Allergy Classification Reported Allergen(s) Allergy Type Date of Onset Reaction(s) Facility Anti-Epileptic Agents (1 source) gabapentin Drug Allergy 01-18-20 [facility] Dihydrofolate Reductase Inhibitors (antibiotic) (1 source) Trimethoprim Drug Allergy 10-11-19 [facility] Opioid Agonists (2 sources) HYDROmorphone Drug Allergy 10-11-19 [facility], [facility] peanut allergenic extract (1 source) peanut allergenic extract Drug Allergy 10-11-19 Rash [facility] Pollen (1 source) Bee pollen Substance Allergy 10-11-19 Anaphylaxis [facility] pregabalin (1 source) pregabalin Drug Allergy 01-18-20 Unknown Reaction [facility] Promethazine (1 source) Promethazine Drug Allergy 10-11-19 Rash [facility] Quinolones (antibiotic) (1 source) Ciprofloxacin Drug Allergy 01-18-20 22 itching, nausea [facility] Sulfonamides (antibiotic) (1 source) Sulfamethoxazole Drug Allergy 10-11-19 Hives [facility] Unclassified (1 source) codeine, depakote, bactrium, s Allergy to substance 01-18-20 [facility] Unclassified (1 source) walnuts Allergy to substance 07-03-20 Anaphylaxis [facility] Valproate (1 source) Valproate Drug Allergy 10-11-19 itching, nausea [facility] (1 source) tree nut, unspecified; Translations: [TREE NUTS] Propensity to adverse reactions to drug (disorder) 07-28-19 [facility] Repository (1 source) BEE VENOM PROTEIN (HONEY BEE); Translations: [BEE VENOM PROTEIN (HONEY BEE)] Propensity to adverse reactions to drug (disorder) 11-30-19 [facility] Repository (8 sources) Ciprofloxacin Drug Allergy 09-24-19 18 [facility] [email or web address] Other (7 sources) gabapentin Drug Allergy [email or web address] Other (8 sources) HYDROmorphone Drug Allergy 06-13-20 23 [email or web address] Other (7 sources) pregabalin Drug Allergy [email or web address] Other (7 sources) codeine, depakote, bactrium, sulfa, bees walnuts Propensity to adverse reactions [email or web address] Other (1 source) Acetaminophen / HYDROcodone Drug Allergy 11-03-19 15 [facility] Repository (1 source) bee venom Drug allergy (disorder) 11-30-19 15 [facility] Repository (1 source) Codeine Drug Allergy 11-03-19 15 [facility] Repository (1 source) HYDROmorphone Drug Allergy 11-30-19 15 [facility] Repository (1 source) Sulfamethoxazole / Trimethoprim Drug Allergy 11-03-19 15 [facility] Repository (1 source) Valproate Drug Allergy 11-03-19 15 [facility] Repository (1 source) Misc-Food; Translations: [Misc-Food] Food allergy (disorder) 11-03-19 15 [facility] Repository (1 source) Acetaminophen / HYDROcodone Drug Allergy 06-13-20 [facility] (1 source) Bee pollen Propensity to adverse reactions 06-13-20 [facility] (1 source) Codeine Drug Allergy 06-13-20 [facility] (1 source) Erythromycin Drug Allergy 06-13-20 [facility] (1 source) Honey bee venom Propensity to adverse reactions 11-30-19 15 Hives [facility] Work Phone: (1 source) Pregabalin Propensity to adverse reactions 06-13-20 [facility] (1 source) Promethazine Drug Allergy 06-13-20 [facility] (1 source) Sulfamethoxazole Allergy to substance 06-17-20 17 Hives [facility] (1 source) Sulfamethoxazole / Trimethoprim Drug Allergy 06-13-20 [facility] (1 source) Valproate Drug Allergy 06-13-20 [facility] (1 source) [place] Flavor Propensity to adverse reactions 06-13-20 [facility] (1 source) Other Propensity to adverse reactions 07-28-19 22 Hives, Shortness of breath, Swelling [facility] Medications Current Medications Medication Drug Class(es) Dates Sig (Normalized) Sig (Original) alosetron 0.5 mg oral tablet (1 source) Serotonin-3 Receptor Antagonist Start: 08-01-2020 take 1 tablet by mouth every twenty-four hours Alosetron HCl 0.5 MG 1 tablet Orally daily for 30 days Jul, Active Biotin (3 sources) Biotin Active Calcium & Magnesium Carbonates (3 sources) Calcium & Magnes ium Carbonates Active Centrum Silver 50+Women (1 source) Centrum Silver 50+Women Active cyclobenzaprine hydrochloride 10 mg oral tablet (2 sources) Muscle Relaxant Start: 12-09-2023 take 10 mg by mouth three times daily Cyclobenzaprine Active 10 MG PO Three times daily December 09, 2023 12:00am take 5 mg by mouth t hree times daily as needed for muscle spasms cyclobenzaprine (Flexeril) 10 MG tablet Take 5 mg by mouth 3 (three) times a day as needed for muscle spasms. 0 Active Elderberry preparation (3 sources) Elderberry Activ e [id number] 0.3 ml EPINEPHrine 1 mg/ml auto-injector (3 sources) alpha-Adrenergic Agonist, beta-Adrenergic Agonist, Catecholamine Start: 12-09-2023 Epinephrine Active 0.3 ML IM December 09, 2023 12:00am EPINEPHrine (EPI PEN IJ) Inject as directed. 0 Active EPINEPHrine 0.3 MG/0.3ML as directed Injection Active estradiol 1 mg oral tablet (2 sources) Estrogen Start: 12-09-2023 take 1 mg by mouth once daily Estradiol Active 1 MG PO Daily December 09, 2023 12:00am take 1 tablet by [facility] estradiol (Estrace) 1 MG tablet Take 1 mg by mouth in the morning. 0 Active losartan potassium 100 mg oral tablet (2 sources) Angiotensin 2 Receptor [place] Start: 08-11-2023 End: 02-07-2024 take 100 mg by mouth once daily Losartan Active 100 MG PO Daily December 09, 2023 12:00am Magnesium (3 sources) Magnesium Active Multi For Her 50+ (3 sources) Multi For Her 50 + Active mupirocin 0.02 mg/mg topical ointment (1 source) RNA Synthetase Inhibitor Antibacterial Start: 07-12-2021 Mupirocin 2 % 1 application Externally Twice a day for 5 day(s) Jun, Active omeprazole 20 mg delayed release oral capsule (7 sources) Proton Pump Inhibitor Start: 12-09-2023 take 20 mg by mouth once daily Omeprazole Active 20 MG PO Daily December 09, 2023 12:00am Start: 10-16-2021 take 1 capsule by mo [facility] once daily Omeprazole 20 MG 1 capsule 30 minutes before morning meal Orally Once a day for 90 days Oct, Active 24 hr paliperidone 3 mg extended release oral tablet (7 sources) Atypical Antipsychotic Start: 12-09-2023 take 3 mg by mouth once daily in the morning Paliperidone Active 3 MG PO Every morning December 09, 2023 12:00am take 1 tablet by benedicto th every twenty-four hours Paliperidone ER 6 MG 1 tablet in the morning Orally Once a day Active take 1 tablet by benedicto th every twenty-four hours in the morning paliperidone (Invega) 3 MG 24 hr tablet Take 3 mg by mouth in the morning. Do not crush, chew, or split. . 0 Active take 1 tablet by benedicto th every twenty-four hours Paliperidone ER 3 MG 1 tablet in the morning Orally Once a day Active pramoxine hydrochloride 10 mg/ml rectal foam (1 source) Start: 06-17-2019 Proctofoam 1 % as directed Rectal PRN for 30 day(s) Jun, Active sucralfate 1000 mg oral tablet (5 sources) Aluminum Complex Start: 09-23-2017 End: 12-09-2023 take 1 tablet by mouth every six hours Sucralfate 1 GM 1 tablet on an empty stomach Orally qid for 90 day(s) Aug, Active Carafate Active take 1 capsule by mouth twice da inna Sucralfate 1 GM 1 capsule Oral twice times a day for 30 days Active topiramate 100 mg oral tablet (10 sources) Start: 09-23-2017 End: 12-09-2023 take 1 tablet by mouth once daily Topiramate (Topamax) 100 mg tablet Active 100 MG PO Daily December 09, 2023 12:00am Topamax Active take 1 capsule by mo ut three times daily Topiramate 100 MG 1 capsule Oral TID for 30 Active traZODone hydrochloride 100 mg oral tablet (8 sources) Serotonin Reuptake Inhibitor Start: 12-09-2023 take 200 mg by mouth once daily at bedtime Trazodone Active 200 MG PO Daily at bedtime December 09, 2023 12:00am Start: 09-23-2017 End: 12-09-2023 take 50 mg by mouth at bedtime Trazodone Discontinued 50 MG PO Bedtime September 23, 2017 12:00am December 09, 2023 3:28pm take 1-2 tablets by mouth once daily traZODone HCl 50 MG 1-2 TABLETS Orally Once a day Active take 2 tablets by mo uth at bedtime traZODone (Desyrel) 100 MG tablet Take 200 mg by mouth at bedtime. 0 Active Turmeric extract (3 sources) Turmeric Active Completed/Discontinued Medications Medication Drug Class(es) Dates Sig (Normalized) Sig (Original) busPIRone hydrochloride 10 mg oral tablet (3 sources) Start: 07-13-2020 End: 12-09-2023 Buspirone Discontinued 10 MG PO As Directed July 13, 2020 1:00am December 09, 2023 3:31pm BuSpar Active take 1 tablet by mouth twice nino ly BuSpar 10 MG 1 tablet Orally Twice a day Active citalopram 20 mg oral tablet (3 sources) Serotonin Reuptake Inhibitor Start: 07-13-2020 End: 12-09-2023 Citalopram Discontinued 20 MG PO As Directed July 13, 2020 1:00am December 09, 2023 3:31pm Citalopram [place] bromide Active dicyclomine hydrochloride 10 mg oral capsule (8 sources) Anticholinergic Start: 08-16-2019 End: 12-09-2023 take 10 mg by mouth three times daily Dicyclomine Discontinued 10 MG PO Three times daily August 16, 2019 1:00am December 09, 2023 3:31pm Start: 04-30-2018 take 1 tablet by benedicto th every twenty-four hours Dicyclomine HCl 20 mg 1 tablet Orally once a day for 30 days Apr, Active take 1 tablet by benedicto th every eight hours Dicyclomine HCl 20 MG 1 tablet Orally Three times a day Active 1 ml erenumab-aooe 70 mg/ml auto-injector (2 sources) Start: 07-13-2020 End: 12-09-2023 Erenumab-Aooe (Aimovig Autoinjector) 70 mg/mL auto-injector Discontinued 70 MG SUBCUT As Directed July 13, 2020 1:00am December 09, 2023 3:31pm inject 70 mg by subc utaneous injection every month Aimovig 70 MG/ML as directed Subcutaneou s ONCE A MONTH Active estrogens, conjugated (nursing home) 0.625 mg oral tablet (9 sources) Estrogen Start: 07-13-2020 End: 12-09-2023 take 1 tablet by mouth once daily Conjugated Estrogens (Premarin) 0.625 mg tablet Discontinued 0.625 MG PO Daily July 13, 2020 1:00December 09, 2023 3:31pm Start: 09-23-2017 End: 08-16-2019 take 0.625 mg by mouth once daily Conjugated Estrogens Discontinued 0.625 MG PO Daily September 23, 2017 12:00am August 16, 2019 7:38am sertraline 100 mg oral tablet (1 source) Serotonin Reuptake Inhibitor Start: 09-23-2017 End: 07-13-2020 take 100 mg by mouth once daily Sertraline Discontinued 100 MG PO Daily September 23, 2017 12:00am July 13, 2020 1:21pm tiZANidine 4 mg oral tablet (2 sources) Central alpha-2 Adrenergic Agonist Start: 07-13-2020 End: 12-09-2023 Tizanidine Discontinued 4 MG PO As Directed July 13, 2020 1:00am December 09, 2023 3:31pm tiZANidine HCl A ctive Problems Active Problems Problem Classification Problem Date Documented Da te Episodic/Chronic Abdominal pain (14 sources) Right upper quadrant pain; Translations: [Right upper quadrant pain] Episodic Allergic reactions (1 source) Allergy to nut; Translations: [Allergy to other foods] Onset: 4 08-18-2023 Episodic Anal and rectal conditions (7 sources) Rectal pain; Translations: [Other specified diseases of anus and rectum] Episodic Anxiety disorders (2 sources) Anxiety; Translations: [Anxiety disorder, unspecified] Onset: 2 08-18-2023 Chronic Asthma (1 source) Asthma; Translations: [Unspecified asthma, uncomplicated] 10-10-2021 Chronic Chronic kidney disease (10 sources) Chronic kidney disease stage 2; Translations: [Chronic kidney disease, stage 2 (mild)] Onset: 3 06-16-2023 Chronic E Codes: Fall (1 source) Fall (on) (from) other stairs and steps, initial encounter; Translations: [Fall down stairs] 07-03-2021 Episodic Esophageal disorders (11 sources) Gastroesophageal reflux disease; Translations: [Gastro-esophageal reflux disease without esophagitis] Onset: 2 Resolved: 2 Chronic Essential hypertension (1 source) Essential hypertension; Translations: [Essential (primary) hypertension] Onset: 3 06-16-2023 Chronic Gastritis and duodenitis (7 sources) Gastritis; Translations: [Gastritis, unspecified, without bleeding] Episodic Gastrointestinal hemorrhage (20 sources) Dark stools; Translations: [Melena] 07-26-2020 Episodic Headache; including migraine (1 source) Migraine without aura, not refractory ; Translations: [Migraine without aura, not intractable, without status migrainosus] Onset: 06-16-2023 Chronic Headache; including migraine (7 sources) Headache; Translations: [Headache] Episodic Hemorrhoids (7 sources) Hemorrhoids; Translations: [Unspecified hemorrhoids] Episodic Hypertension with complications and secondary hypertension (2 sources) Hypertensive renal disease; Translations: [Hypertensive chronic kidney disease with stage 1 through stage 4 chronic kidney disease, or unspecified chronic kidney disease] 12-09-2023 Chronic Intestinal infection (14 sources) Clostridial enteric disease; Translations: [Enterocolitis due to Clostridium difficile, not specified as recurrent] Episodic Malaise and fatigue (14 sources) Fatigue; Translations: [Other fatigue] Episodic Nausea and vomiting (14 sources) Vomiting; Translations: [Vomiting, unspecified] Episodic Noninfectious gastroenteritis (14 sources) Microscopic colitis; Translations: [Other specified noninfective gastroenteritis and colitis] Episodic Nonspecific chest pain (1 source) Atypical chest pain; Translations: [Other chest pain] 10-10-2021 Episodic Other and unspecified benign neoplasm (7 sources) Lipoma (clinical); Translations: [Benign lipomatous neoplasm, unspecified] Episodic Other diseases of kidney and ureters (1 source) Kidney lesion; Translations: [Disorder of kidney and ureter, unspecified] 12-09-2023 Episodic Other diseases of kidney and ureters (1 source) Disorder of kidney and ureter, unspecified; Translations: [Unspecified disorder of kidney and ureter] 12-09-2023 Episodic Other gastrointestinal disorders (7 sources) Irritable bowel syndrome with diarrhea; Translations: [Irritable bowel syndrome with diarrhea] Chronic Other gastrointestinal disorders (7 sources) Heartburn; Translations: [Heartburn] Episodic Other gastrointestinal disorders (7 sources) Swollen abdomen; Translations: [Abdominal distension (gaseous)] Episodic Other gastrointestinal disorders (14 sources) Diarrhea; Translations: [Diarrhea, unspecified] Episodic Other gastrointestinal disorders (14 sources) Constipation; Translations: [Constipation, unspecified] Episodic Other liver diseases (7 sources) Increased creatine kinase level; Translations: [Abnormal levels of other serum enzymes] Episodic Other nervous system disorders (7 sources) Burning sensation; Translations: [Other disturbances of skin sensation] Episodic Other nutritional; endocrine; and metabolic disorders (7 sources) Weight loss; Translations: [Abnormal weight loss] Episodic Other screening for suspected conditions (not mental disorders or infectious disease) (1 source) Ultrasonography of kidney abnormal; Translations: [Abnormal radiologic findings on diagnostic imaging of unspecified kidney] Onset: 4 08-18-2023 Episodic Other skin disorders (7 sources) Rash and other nonspecific skin eruption; Translations: [Rash] Episodic Regional enteritis and ulcerative colitis (7 sources) Pseudopolyposis of colon; Translations: [Inflammatory polyps of colon without complications] Chronic Sprains and strains (2 sources) Sprain of other ligament of left ankle, initial encounter; Translations: [Sprain of left ankle] Onset: 1 Resolved: 1 Episodic Substance-related disorders (1 source) Tobacco dependence syndrome; Translations: [Nicotine dependence, unspecified, uncomplicated] Onset: 3 06-16-2023 Chronic Superficial injury; contusion (2 sources) Contusion of lower back; Translations: [Contusion of lower back and pelvis, initial encounter] 07-03-2021 Episodic Unclassified (3 sources) LOW BACK PAIN, UNSPECIFIED; Translations: [LOW BACK PAIN, UNSPECIFIED] Onset: 2 Past or Other Problems Problem Classification Problem [...] Diarrhea, unspecified Onset: 10-16-2021 Resolved: 01-17-2022 Episodic Unclassified (1 source) LOW BACK PAIN, UNSPECIFIED; Translations: [LOW BACK PAIN, UNSPECIFIED] Onset: 06-07-2022 Results Test Name Value Interpretation Reference Range Facility ALL BUNon 08-22-2023 Urea nitrogen [Mass/Vol] 21.0 mg/dL High 7.0 - 18.0 mg/dL [facility] No Panel Informationon 08-22 Interpretation and review of laboratory results Abnormal [facility] 08-22-2023 Creatinine [Mass/Vol] 1.48 mg/dL High 0.55 - 1.02 mg/dL [facility] GFR/1.73 sq M.predicted CKD-EPI (S/P/Bld) [Vol rate/Area] 44 Low 60 - PINF [facility] EGFR-NON AF [place] 36 Low 60 - PINF [facility] XR LSPINE MIN 4 VIEWSon 05-15 XR [...] by: JAY HUFF Date: 2022-06-07 12:11 Normal [facility] B-Type Natriuretic Peptideon 10-10-2021 Natriuretic peptide B (Bld) [Mass/Vol] 64.0 pg/mL Normal 5-100 [facility] Comment on above: Result Comment: PERF ORMED BY: [place] [id number] PATHOLOGIST TAKER OFF HEMP FIBER SHIMA SY M.D. Performed By: #### C K, CKMB, CBC, BMP, BNP #### [address] Basic Metabolic Panelon 09-13 Calcium [Mass/Vol] 9.3 mg/dL Normal 8.2-10.2 [facility] Comment on above: Performed By: #### C K, CKMB, CBC, BMP, BNP #### [facility] [address] Chloride [Moles/Vol] 104 mmol/L Normal 95-114 [facility] Comment on above: Performed By: #### C K, CKMB, CBC, BMP, BNP #### [facility] [address] CO2 [Moles/Vol] 19.9 mmol/L Low 22.0-30.0 [facility] Comment on above: Performed By: #### C K, CKMB, CBC, BMP, BNP #### [address] Creatinine [Mass/Vol] 1.27 mg/dL High 0.44-1.03 [facility] Comment on above: Performed By: #### C K, CKMB, CBC, BMP, BNP #### [address] Creatinine Clr Calc Pharmacy 45.75 [facility] Comment on above: Result Comment: PERF ORMED BY: [place] [id number] PATHOLOGIST TAKER OFF HEMP FIBER SHIMA SY M.D. Performed By: #### C K, CKMB, CBC, BMP, BNP #### [address] Estimated GFR ( Demetra 52 [facility] Comment on above: Result Comment: GFR estimated reference range: According to KDOQI guidelines, <60 ml/min/1.73m2 is sufficient to diagnose a patient with chronic kidney disease. Performed By: #### C K, CKMB, CBC, BMP, BNP #### [address] Estimated GFR (Non- Am 43 [facility] Comment on above: Performed By: #### C K, CKMB, CBC, BMP, BNP #### [address] Glucose [Mass/Vol] 96 mg/dL Normal 70-100 [facility] Comment on above: Result Comment: [place] Glucose Reference Range is dependent on time and content of last meal. Glucose of more than 200 mg/dL in a nonstressed, ambulatory subject supports the diagnosis of Diabetes Mellitus. ADA recommended reference range Performed By: #### C K, CKMB, CBC, BMP, BNP #### [facility] [address] Potassium [Moles/Vol] 3.7 mmol/L Normal 3.5-5.1 [facility] Comment on above: Performed By: #### C K, CKMB, CBC, BMP, BNP #### [facility] [address] Sodium [Moles/Vol] 135 mmol/L Low 136-146 [facility] Comment on above: Performed By: #### C K, CKMB, CBC, BMP, BNP #### [facility] [address] Urea nitrogen [Mass/Vol] 17 mg/dL Normal 9-23 [facility] Comment on above: Performed By: #### C K, CKMB, CBC, BMP, BNP #### [facility] [address] COVID-19 Antigenon 2 COVID-19 [facility] [...] its performance Bella Disclaimer characteristic determined by [employer] and Bella Disclaimer validated at [facility]. This Bella Disclaimer test has not [...] Emergency Use Authorization for Coronavirus Bella Disclaimer isease during the Public Health Emergency) Bella Disclaimer [...] is terminated or revoked sooner. PERFORMED BY: [place] [id number] PATHOLOGIST TAKER OFF HEMP FIBER SHIMA SY M.D. Normal [facility] Comment on above: Performed By: #### F CARLA, COVID-19 BELLA, SOFIANEG #### [address] Complete Blood Count Auto Di ffon 10-10-2021 Basophils (Bld) [#/Vol] 0.1 10*3/uL Normal 0.0-0.2 [facility] Comment on above: Result Comment: PERF ORMED BY: [place] [id number] PATHOLOGIST TAKER OFF HEMP FIBER SHIMA SY M.D. Performed By: #### C K, CKMB, CBC, BMP, BNP #### [address] Basophils/100 WBC (Bld) 1.4 % Normal . [facility] Comment on above: Performed By: #### C K, CKMB, CBC, BMP, BNP #### [address] Eosinophils (Bld) [#/Vol] 0.2 10*3/uL Normal 0.0-0.45 [facility] Comment on above: Performed By: #### C K, CKMB, CBC, BMP, BNP #### [address] Eosinophils/100 WBC (Bld) 2.3 % Normal . [facility] Comment on above: Performed By: #### C K, CKMB, CBC, BMP, BNP #### [address] Erythrocyte distribution width (RBC) [Ratio] 13.2 % Normal 11.9-15.3 [facility] Comment on above: Performed By: #### C K, CKMB, CBC, BMP, BNP #### [address] Hematocrit (Bld) [Volume fraction] 41.5 % Normal 34.0-46.4 [facility] Comment on above: Performed By: #### C K, CKMB, CBC, BMP, BNP #### [address] Hemoglobin (Bld) [Mass/Vol] 13.8 g/dL Normal 11.8-15.4 [facility] Comment on above: Performed By: #### C K, CKMB, CBC, BMP, BNP #### [address] Lymphocytes (Bld) [#/Vol] 3.6 10*3/uL Normal 1.00-4.8 [facility] Comment on above: Performed By: #### C K, CKMB, CBC, BMP, BNP #### [address] Lymphocytes/100 WBC (Bld) 39.0 % Normal . [facility] Comment on above: Performed By: #### C K, CKMB, CBC, BMP, BNP #### [address] MCH (RBC) [Entitic mass] 30.7 pg Normal 24.7-34.3 [facility] Comment on above: Performed By: #### C K, CKMB, CBC, BMP, BNP #### [address] MCV (RBC) [Entitic vol] 91.9 fL Normal 80-100 [facility] Comment on above: Performed By: #### C K, CKMB, CBC, BMP, BNP #### [address] Mean Corpuscular HGB Conc 33.4 g/dL Normal 32.0-35.0 [facility] Comment on above: Performed By: #### C K, CKMB, CBC, BMP, BNP #### [address] Monocytes (Bld) [#/Vol] 0.8 10*3/uL Normal 0.0-0.8 [facility] Comment on above: Performed By: #### C K, CKMB, CBC, BMP, BNP #### [address] Monocytes/100 WBC (Bld) 9.0 % Normal . [facility] Comment on above: Performed By: #### C K, CKMB, CBC, BMP, BNP #### [address] Neutrophils (Bld) [#/Vol] 4.4 10*3/uL Normal 1.8-7.7 [facility] Comment on above: Performed By: #### C K, CKMB, CBC, BMP, BNP #### [address] Neutrophils/100 WBC (Bld) 48.3 % Normal . [facility] Comment on above: Performed By: #### C K, CKMB, CBC, BMP, BNP #### [place] [address] [place] Nucleated RBC/100 WBC (Bld) [Ratio] 0.1 % Normal 0-0.5 [facility] Comment on above: Performed By: #### C K, CKMB, CBC, BMP, BNP #### [address] Platelet mean volume (Bld) [Entitic vol] 7.0 fL Normal 6.3-10.7 [facility] Comment on above: Performed By: #### C K, CKMB, CBC, BMP, BNP #### [place] [address] [place] Platelets (Bld) [#/Vol] 237 10*3/uL Normal 150-450 [facility] Comment on above: Performed By: #### C K, CKMB, CBC, BMP, BNP #### [place] [address] [place] RBC (Bld) [#/Vol] 4.51 10*6/uL Normal 3.60-5.00 [facility] Comment on above: Performed By: #### C K, CKMB, CBC, BMP, BNP #### [facility] [address] [place] [address] WBC (Bld) [#/Vol] 9.1 10*3/uL Normal 4.5-11.0 [facility] Comment on above: Performed By: #### C K, CKMB, CBC, BMP, BNP #### [facility] [address] Creatine Kinaseon 10-10-2021 CK [Catalytic activity/Vol] 69 U/L Normal 22-269 [facility] Comment on above: Performed By: #### C K, CKMB, CBC, BMP, BNP #### [address] Creatinine Kinase MBon 10-10 CK.MB [Mass/Vol] 3.1 ng/mL Normal 0.6-6.3 [facility] Comment on above: Performed By: #### F CARLA, COVID-19 BELLA, SOFIANEG #### [address] CKMB Relative Index 4.4 % High 0.00-2.50 [facility] Comment on above: Result Comment: PERF ORMED BY: [place] [address] PATHOLOGIST TAKER OFF HEMP FIBER SHIMA SY M.D. Performed By: #### F CARLA, COVID-19 BELLA, SOFIANEG #### [place] [address] [place] ECG 12 lead ECGon 10-10-2021 ECG 12 lead ECG [facility] Main [place] [address] [place] [address] Electrocardiograph Report Signed Patient: Мария Roman MR#: [id number] : 1965 Acct:[id number] Age/Sex: 55 / F ADM Date: 10/10/21 Loc: ER Room: Type: [facility] ER Attending Dr: Ordering Provider: Abimael Parks [...] leads Confirmed by ABIMAEL PARKS DO ([id number]), editor greeting card Trent Garay ([id number]) on 10/11/2021 11:15:22 AM Referred By: Electronically Signed By:ABIMAEL PARKS DO Transcribed By: MUS Signed By Abimael Parks DO [address] [facility] Influenza A and B Antigenon 10-10-2021 [...] samples is recommended. Note 7 PERFORMED BY: [facility] [address] [place] [address] PATHOLOGIST TAKER OFF HEMP FIBER SHIMA SY M.D. [facility] Comment on above: Performed By: #### SHEA HIGHTOWER-19 CLAYTON BLANCOIANEG #### [facility] [address] [place] [address] [facility] Bella Ag Negativeon 10-11-19 Bella Ag Negative Negative Normal Negative [facility] Comment on above: Result Comment: This is a duplicate Bella SARS Antigen (BLAYNE) result to be used for statistical tracking purpose only. PERFORMED BY: [place] [address] PATHOLOGIST TAKER OFF HEMP FIBER SHIMA SY M.D. Performed By: #### F CARLA, COVID-19 BELLA, SOFIANEG #### [address] Troponin I High Sensitivityo n 10-10-2021 Troponin I High Sensitivity 12 pg/mL Normal 0-15 [facility] Comment on above: Result Comment: PERF ORMED BY: [place] [address] PATHOLOGIST TAKER OFF HEMP FIBER SHIMA SY M.D. Performed By: #### H S TROP #### [address] XR chest 1V portableon 10-10 XR chest 1V portable [facility] Main [place] [address] [place] [address] XRay Report Signed Patient: Мария Roman MR#: [id number] : 1965 Acct:[id number] Age/Sex: 55 / F ADM Date: 10/10/21 Loc: ER Room: Type: [facility] ER Attending Dr: Ordering Provider: Abimael Parks DO Date of Service: 10/10/21 XR/XR chest 1V portable: Chest Pain Copies to: Abimael Parks DO XR chest 1V portable 10/10/2021 6:45 PM [...] David Walker M.D.10/10/2021 7:52 PM Dictation Location: [place] [address] Transcribed By: [facility] 10/10/211951 Dictated By: David Walker II, MD 10/10/211949 Signed By: 10/10/211951 Normal [facility] XR ANKLE LEFT 3+ VIEWS (SHERRY ROSENBAUM)on 07-29-2021 XR ANKLE LEFT 3+ VIEWS (STANDARD) [...] bodies. IMPRESSION: No obvious fractures or dislocations. [facility] Workstation ID: [id number] Dictated by: LOULOU TREVINO on [place] Jul 29, 2021 8:55:54 PM EST Transcribed by: DARYA SCHILLING on [place] Jul 29, 2021 8:57:24 PM EST Finalized by: LOULOU TREVINO on [place] Jul 29, 2021 10:03:27 PM EST Normal [facility] Comment on above: Order Comment: Injur y/Trauma or Illness?:Injury/Trauma How long have you had these symptoms (acute/chronic)?:Acute Reason for exam?:pain History of cancer?:u Surgeries, chemotherapy, or radiation?:u Type of Exam?:Initial Mechanism of injury?:fall Vital Signs Date Time Vital Sign Value Performing Clinician Major kim 12-09-2023 15:25-0400 Body height 168.91 cm MD Chinmay Manning Work Phone: [facility] 12-09-2023 15:25-0400 Body mass index (BMI) [Ratio] 32.3 kg/m2 MD Chinmay Manning Work Phone: [facility] 12-09-2023 15:25-0400 Body temperature 97.3 [degF] MD Chinmay Manning Work Phone: [facility] 12-09-2023 15:25-0400 Body weight 92.24 kg MD Chinmay Manning Work Phone: [facility] 12-09-2023 15:25-0400 Diastolic blood pressure 72 mm[Hg] MD Chinmay Manning Work Phone: [facility] 12-09-2023 15:25-0400 Heart rate 113 /min MD Chinmay Manning Work Phone: [facility] 12-09-2023 15:25-0400 Respiratory rate 16 /min MD Chinmay Manning Work Phone: [facility] 12-09-2023 15:25-0400 SaO2% (BldA) [Mass fraction] 96 % MD Chinmay Manning Work Phone: [facility] 12-09-2023 15:25-0400 Systolic blood pressure 112 mm[Hg] MD Chinmay Manning Work Phone: [facility] 01-17-2022 16:30-0400 Body height 168.91 cm Bahman Meneses Other [email or web address] Other 01-17-2022 16:30-0400 Body mass index (BMI) [Ratio] 21.62 kg/m2 Bahman Meneses Other [email or web address] Other 01-17-2022 16:30-0400 Body weight 61.69 kg Bahman Meneses Other [email or web address] Other 10-16-2021 16:45-0400 Body height 168.91 cm Bahman Meneses Other [email or web address] Other 10-16-2021 16:45-0400 Body mass index (BMI) [Ratio] 20.98 kg/m2 Bahman Meneses Other [email or web address] Other 10-16-2021 16:45-0400 Body weight 59.88 kg Bahman Meneses Other [email or web address] Other 07-12-2021 11:05-0500 Body height 168.91 cm Christiana Ginty Other [email or web address] Other 07-12-2021 11:05-0500 Body temperature 97.5 [degF] Christiana Ginty Other [email or web address] Other 07-12-2021 11:05-0500 Diastolic blood pressure 106 mm[Hg] Christiana Ginty Other [email or web address] Other 07-12-2021 11:05-0500 Respiratory rate 18 /min Christiana Ginty Other [email or web address] Other 07-12-2021 11:05-0500 SaO2% (BldA) [Mass fraction] 98 % Christiana Ginty Other [email or web address] Other 07-12-2021 11:05-0500 Systolic blood pressure 153 mm[Hg] Christiana Ginty Other [email or web address] Other 07-04-2021 12:00-0500 Body height 168.91 cm Justin Che II Other [email or web address] Other 07-04-2021 12:00-0500 Body mass index (BMI) [Ratio] 17.88 kg/m2 Justin Che II Other [email or web address] Other 07-04-2021 12:00-0500 Body weight 51.03 kg Justin Che II Other [email or web address] Other Encounters Encounter Date Encounter Type Care Provider Facility Start: 02-12-2024 End: 02-12-2024 ambulatory SHAIKH CECILIO Not Available Start: 12-09-2023 End: 12-09-2023 ambulatory MD Chinmay Manning Work Phone: [facility] Work Phone: Start: 12-09-2023 End: 12-09-2023 Patient encounter procedure MD Chinmay Manning Work Phone: [facility] Nephrology Ale[place] Work Phone: Start: 11-17-2023 End: 11-17-2023 ambulatory SHAIKH CECILIO Not Available Start: 09-25-2023 Registered Recurring MD Jeff Manning Work Phone: [facility] Start: 08-22-2023 End: 08-22-2023 ambulatory Jorge Luis Barajas Other [facility] Other Start: 08-22-2023 Clinisync Result Encounter Shaikh Cecilio WALKER Work Phone: [facility] Unsolicited Start: 08-22-2023 Clinisync Result Encounter Shaikh Cecilio WALKER Work Phone: [facility] Unsolicited Start: 08-22-2023 Telephone encounter Jorge Luis Barajas [facility] Start: 08-18-2023 End: 08-18-2023 ambulatory SHAIKH CECILIO Not Available Start: 06-16-2023 End: 06-16-2023 ambulatory SHAIKH CECILIO Not Available Start: 07-02-2022 End: 07-03-2022 ambulatory BECCA THOMAS Facility: Start: 06-07-2022 End: 06-08-[address] ETHAN COATS Facility: Start: 01-28-2022 End: 01-28-2022 ambulatory Bahman Meneses Other [email or web address] Other Start: 01-28-2022 Telephone encounter Bahman Astudillojoy vasquez [facility] Start: 01-17-2022 End: 01-17-2022 ambulatory Bahman Zaira Other [email or web address] Other Start: 01-17-2022 Office outpatient visit 15 minutes Bahman Butlerormack [facility] Start: 11-09-2021 End: 11-09-2021 ambulatory Bahman Zaira Other [email or web address] Other Start: 11-09-2021 Telephone encounter Bahman Butlerdipikajoy vasquez [facility] Start: 10-16-2021 End: 10-16-2021 ambulatory Bahman Zaira Other [email or web address] Other Start: 10-16-2021 Office outpatient visit 15 minutes Bahman Butlerormack [facility] Start: 10-10-2021 End: 10-11-2021 Emergency department patient visit Ethan Coats Facility:[facility] Start: 07-28-2021 End: 08-04-2021 Evaluation and management of inpatient [facility] Start: 07-12-2021 End: 07-12-2021 ambulatory Christiana Ginty Other [email or web address] Other Start: 07-12-2021 Office outpatient visit 15 minutes Christiana Ginty [facility] Start: 07-04-2021 End: 07-04-2021 ambulatory Justin Che II Other [email or web address] Other Start: 07-04-2021 Office outpatient new 30 minutes Justin Brocton II [facility] Procedures Date Procedure Procedure Detail Performing Clinician Start: 08-22-2023 MICAELA hernandez MD Work Phone: Start: 08-22-2023 [facility] Shaikh Conchis pinto MD Work Phone: Plan of Treatment Date Care Activity Detail Author Start: 11-17-2023 End: 11-17-2023 Patient encounter procedure 11/17/2023 5:00 PM EDT Office Visit [facility] [address] [place] [address] Shaikh Hernandes MD [address] [place] [id number] [facility] Start: 09-12-2023 Screening for malign ant neoplasm of breast Mammogram [facility] Comment on above: Postponed from 12/07 (Insurance / Financial) Start: 03-14-2023 Influenza vaccination Influenz a Vaccine (#1) [facility] Start: 12-07-1993 Screening for malign ant neoplasm of cervix [facility] Start: 12-07-1984 Screening for malign ant neoplasm of cervix Pap Smear [facility] Start: 1965 Medicare Annual Well ness (AWV) Medicare Annual Wellness (AWV) [facility] Start: 1965 Screening for malign ant neoplasm of colon [facility] Renal function 2000 panel - Serum or Plasma [facility] Immunizations Immunization Date Immunization Notes Care Provider Fa [facility] 07-12-2021 tetanus and diphther ia toxoids, adsorbed, preservative free, for adult use (5 Lf of tetanus toxoid and 2 Lf of diphtheria toxoid) Christiana Lazaro Other [email or web address] Other Payers Date Payer Category Payer Unknown [employer] [id number] 2023-Present [address] [place] [address] [id number] 2023 Unknown [id number] 2022 Medicare WELLCARE MEDICAR E WELLCARE BY VIKTORIA [id number] 2022-Present [address] [place] [address] [id number] 2022 Unknown [id number] 2021 Unknown [id number] 1965 Unknown [id number] 1965 Unknown [id number] 1965 Unknown [id number] 1965 Unknown [id number] 1963 Unknown [id number] 1963 Unknown [id number] 1965 Unknown [id number] 1959 Unknown [id number] Medicare [id number] Self-pay Self Pay [id number] Social History Date Type Detail Facility Unknown if ever smoked [facility] Other Start: 08-18-2023 Sex Assigned At N [facility] Other Start: 06-16-2023 [facility] History of tobacco use Cigarette Smoker [facility] Start: 06-16-2023 End: 08-18-2023 Cigarettes smoked current (pack per day) - Reported 0.5 [facility] Start: 06-16-2023 Tobacco use and exposure Smokeless tobacco non-user [facility] Start: 08-18-2023 Alcohol intake Lifetime non-d edita (finding) [facility] Start: 1965 Sex Assigned At Not on file [facility] Start: 12-09-2023 Tobacco smoking stat [facility] Smoker (finding) [facility] Start: 1965 Sex Assigned At Female F [facility] Medical Equipment Procedure Code Equipment Code Equipment Origin al Text Equipment Identifier Dates Capsule endoscopy, for patency of lumen evaluation Video capsule endoscopy system [id number] FDA Start: 08-16-2019 Evaluation note 01-28-2022 Note Date & Type Note Facility 01-28-2022 Evaluation note Encounter Date Diagnosis Assessment Notes Jan, GERD (gastroesop hageal reflux disease) (ICD-10 - K21.9) [email or web address] Other Evaluation note 01-17-2022 Note Date & Type Note Facility 01-17-2022 Evaluation note Encounter Date Diagnosis Assessment Notes Jan, Diarrhea (ICD-10 - R19.7) Continue Dicyclomine Jan, GERD (gastroesoph ageal reflux disease) (ICD-10 - K21.9) Continue Omeprazole without change [email or web address] Other Evaluation note 11-09-2021 Note Date & Type Note Facility 11-09-2021 Evaluation note Encounter Date Diagnosis Assessment Notes Oct, GERD (gastroesop hageal reflux disease) (ICD-10 - K21.9) [email or web address] Other Evaluation note 10-16-2021 Note Date & Type Note Facility 10-16-2021 Evaluation note Encounter Date Diagnosis Assessment Notes Oct, Diarrhea, unspecified (ICD-10 - R19.7) CONTINUE DICYCLOMINE DIRECTED RTO 3 MONTHS Oct, GERD (gastroesophag eal reflux disease) (ICD-10 - K21.9) STOP CARAFATE [email or web address] Other Evaluation note 07-12-2021 Note Date & [...] nonstick telfa -After 48 hours may keep CLINICAL PHARMACIST unless risk of getting dirty or irritated [...] With Stitches: Care Instructions material was printed [email or web address] Other Evaluation note 07-04-2021 Note Date & [...] elevation therapy. Recommended that she continue with [id number] er oral anti-inflammat ories. Informed her that [...] 4 weeks to check on her progress. [email or web address] Other History general Narrative - Reported 04-08-2014 [...] Hospitalization History [email or web address] Other History general Narrative - Reported 04-08-2014 [...] Hospitalization History [email or web address] Other Evaluation note Note Date & Type Note Facility Evaluation note No Information [facility] Other Evaluation note Note Date & Type Note Facility Evaluation note Diagnosis Onset Date Chronic kidney disease, stage 3b acute Hypertensive nephropathy acu te Lesion of left samish kidney [facility] Work Phone: Summary Purpose Family History No Family History Records Found Relationship Condition Age at Onset Recorded Date/T manuel Not Specified Hypertension Unknown Congestive heart failure Unknown Heart disease Unknown brother Heart disease Unknown sister Heart disease Unknown brother Diabetes mellitus Unknown father Unknown Motor vehicle accident Unknown family member Unknown Not Specified Heart disease Unknown Unknown Hypertension Unknown sister Unknown Advance Directives No Advanced Directives Records Found Advance Directive Response Recorded Date/ Time Advance Directives No May 9:58am Chief Complaint and Reason for Visit Chief Complaint BH CKD 3 Reason for Visit Chronic kidney disea se, stage 3b Hypertensive nephropathy Lesion of left samish kidney Additional Source Comments INFORMATION SOURCE (unrecogn ized section and content) DATE CREATED AUTHOR 08/08/2021 [facility] DATE CREATED AUTHOR AUTHOR'S ORGANIZ ATION 08/17/2022 [facility] DATE CREATED AUTHOR AUTHOR'S ORGANIZ ATION 11/27/2022 [facility] DATE CREATED AUTHOR AUTHOR'S ORGANIZ ATION 02/15/2024 [facility] d[facility] Specialists EPIC REASON FOR VISIT (unrecogniz ed section and content) Left Ankle PainFINGER LACERA TIONPATIENT HERE FOR ANNUAL VISIT FOR DIARRHEA. PATIENT WAS TO START ALOSETRON. PT IS NOT TAKING THE ALOESTRONmedicationPATIENT HERE FOR 3 MONTH FOLLOW UP TO DIARRHEA AND GERD. 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 Relationship Specialty Start Date End Date Shaikh Hernandes MD [address] [place] [phone] PCP - General Internal Medicine 08/11/23 Margarette Estevez NP [address] [place] [place] [phone] Nurse Practitioner Family Medicine 05/26/23 Team Status: Active Member Role Status Dates Ethan Coats DO Primary Care Provider Active Team Status: Active Member Role Status Dates Chinmay Manning MD Attending Provider Active Start: September 25, 2023 Team Status: Inactive Member Role Status Dates Debby Dominguez MD Attending Provider Active Star t: December 09, 2023 End: December 09, 2023 Ethan Coats DO Primary Care Provider Active Start: December 09, 2023 End: December 09, 2023 Goals (unrecognized section and content) Goals may be documented in a n alternate section FOR RECORDS PERTAINING TO PATIENTS WHO ARE [...] BE BASED ON THE PRIMARY CLINICAL RECORDS. [facility] [employer] provides no warranty or guarantee of the accuracy or completeness of information in this document.
[2024-02-21 07:36] LABS: Bilirubin Urine NEGATIVE (NEGATIVE); Blood Urine TRACE-I (NEGATIVE); Clarity Urine CLEAR (CLEAR); Color Urine LT. YELLOW (YELLOW); Glucose Urine UA NEGATIVE (NEGATIVE); Ketones Urine NEGATIVE (NEGATIVE); Leukocyte Esterase Urine NEGATIVE (NEGATIVE); Nitrite Urine NEGATIVE (NEGATIVE); Protein Urine NEGATIVE (NEG/TRACE); Urobilinogen Urine 0.2 EU/dL (0.2-1.0)
[2024-02-21 07:56] LABS: Albumin Level 3.6 g/dL (3.4-5.0); Magnesium 1.7 mg/dL (1.8-2.4); Uric Acid 4.6 mg/dL (2.6-6.0)
[2024-02-21 07:56] LABS: Creatinine Urine Random 148.15 mg/dL (20.00-300.00); Protein Creatinine Ratio Urine 0.09
[2024-02-22 11:08] LABS: PTH, Intact 28 pg/mL (15-65)
== END 2024-02-21 07:01 | disposition home or self-care (01) ==
LOC: LAB 07:00
PROVIDERS: PCP Internal Medicine; Visit Provider Internal Medicine Nephrology
DX: N28.9 Disorder of kidney and ureter, unspecified (principal); I12.9 Hypertensive chronic kidney disease with stage 1 through stage 4 chronic kidney disease, or unspecified chronic kidney disease; N18.32 Chronic kidney disease, stage 3b; K62.5 Hemorrhage of anus and rectum
CPT/HCPCS: 36415; 81003; 82042; 82043; 82306; 82570; 83735; 83970; 84100; 84156; 84550

== ENCOUNTER 2024-02-21 07:04 | Outpatient (OUT) | payer BC, OTHER, SELFPAY ==
--- OUTSIDE RECORDS SUMMARY | 2024-02-21 07:06 | XMS_ITS | CCD ---
Author Organization [facility] Care Team Providers Care Photograph Tinter Name Role Phone ELIANE BEEBE Admitting Unavailable ELIANE BEEBE Attending Unavailable SANDRA LIZARRAGA Consulting Unavailable Justin Che II Unavailable Christiana Lazaro Unavailable Bahman Meneses Unavailable [phone] Ethan Coats Primary Care Unavailable Abimael Parks Attending Unavailable Abimael Parks Admitting Unavailable JORGE L, DR ROONEY Admitting Unavailable JORGE L, DR ROONEY Primary Care Unavailable JORGE L, DR ROONEY Consulting Unavailable HOUSE, DR ROONEY Attending Unavailable DARIA, DR JAY Osuna Consulting Unavailable BECCA THOMAS Admitting Unavailable BECCA THOMAS Consulting Unavailable BECCA THOMAS Attending Unavailable JORGE L, DR ROONEY Primary Care Unavailable Herb EQUIPMENT SCHEDULER, Margarette Unavailable Shaikh Hernandes MD Primary Care Provider Jorge Luis Barajas Unavailable MD Chinmay Manning Attending Provider [phone] SHAIKH HERNANDES Attending Unavailable SHAIKH HERNANDES Attending Unavailable SHAIKH HERNANDES Attending Unavailable SHAIKH HERNANDES Attending Unavailable Allergies Allergy Classification Reported Allergen(s) Allergy Type Date of Onset Reaction(s) Facility Anti-Epileptic Agents (1 source) gabapentin Drug Allergy 01-18-20 [facility] Dihydrofolate Reductase Inhibitors (antibiotic) (1 source) Trimethoprim Drug Allergy 10-11-19 [facility] Opioid Agonists (2 sources) HYDROmorphone Drug Allergy 10-11-19 [facility], [facility] peanut allergenic extract (1 source) peanut allergenic extract Drug Allergy 10-11-19 Rash [facility] Pollen (1 source) Bee pollen Substance Allergy 10-11-19 Anaphylaxis [facility] pregabalin (1 source) pregabalin Drug Allergy 01-18-20 Unknown Reaction [facility] Promethazine (1 source) Promethazine Drug Allergy 10-11-19 Rash [facility] Quinolones (antibiotic) (1 source) Ciprofloxacin Drug Allergy 01-18-20 22 itching, nausea [facility] Sulfonamides (antibiotic) (1 source) Sulfamethoxazole Drug Allergy 10-11-19 Hives [facility] Unclassified (1 source) codeine, depakote, bactrium, s Allergy to substance 01-18-20 [facility] Unclassified (1 source) walnuts Allergy to substance 07-03-20 Anaphylaxis [facility] Valproate (1 source) Valproate Drug Allergy 10-11-19 itching, nausea [facility] (1 source) tree nut, unspecified; Translations: [TREE NUTS] Propensity to adverse reactions to drug (disorder) 07-28-19 [facility] (1 source) BEE VENOM PROTEIN (HONEY BEE); Translations: [BEE VENOM PROTEIN (HONEY BEE)] Propensity to adverse reactions to drug (disorder) 11-30-19 [facility] (8 sources) Ciprofloxacin Drug Allergy 09-24-[address] [facility] [employer] Other (7 sources) gabapentin Drug Allergy Unknown [employer] Other (8 sources) HYDROmorphone Drug Allergy 06-13-20 23 Unknown [employer] Other (7 sources) pregabalin Drug Allergy Unknown [employer] Other (7 sources) codeine, depakote, bactrium, sulfa, bees walnuts Propensity to adverse reactions Unknown [employer] Other (1 source) Acetaminophen / HYDROcodone Drug Allergy 11-03-19 15 [facility] Rep[facility] (1 source) bee venom Drug allergy (disorder) 11-30-19 15 [facility] (1 source) Codeine Drug Allergy 11-03-19 15 [facility] (1 source) HYDROmorphone Drug Allergy 11-30-19 15 [facility] (1 source) Sulfamethoxazole / Trimethoprim Drug Allergy 11-03-19 15 [facility] (1 source) Valproate Drug Allergy 11-03-19 15 [facility] (1 source) Misc-Food; Translations: [Misc-Food] Food allergy (disorder) 11-03-19 15 [facility] (1 source) Acetaminophen / HYDROcodone Drug Allergy 06-13-20 [facility] (1 source) Bee pollen Propensity to adverse reactions 06-13-20 [facility] (1 source) Codeine Drug Allergy 06-13-20 [facility] (1 source) Erythromycin Drug Allergy 06-13-20 [facility] (1 source) Honey bee venom Propensity to adverse reactions 11-30-19 15 Hives [facility] Work Phone: (1 source) Pregabalin Propensity to adverse reactions 06-13-20 [facility] (1 source) Promethazine Drug Allergy 06-13-20 [facility] (1 source) Sulfamethoxazole Allergy to substance 06-17-20 17 Hives [facility] (1 source) Sulfamethoxazole / Trimethoprim Drug Allergy 06-13-20 [facility] (1 source) Valproate Drug Allergy 06-13-20 [facility] (1 source) [place] Flavor Propensity to adverse reactions 06-13-20 [facility] (1 source) Other Propensity to adverse reactions 07-28-19 22 Hives, Shortness of breath, Swelling [facility] Medications Current Medications Medication Drug Class(es) [...] Elderberry preparation (3 sources) Elderberry Activ e [id number] 0.3 ml EPINEPHrine 1 mg/ml auto-injector (3 [...] 1 tablet [facility] estradiol (Estrace) 1 MG tablet Take 1 [...] Start: 10-16-2021 take 1 capsule by mo [facility] once daily Omeprazole 20 MG 1 capsule [...] 2020 1:00am December 09, 2023 3:31pm Citalopram [place] bromide Active dicyclomine hydrochloride 10 mg oral [...] s ONCE A MONTH Active estrogens, conjugated (residential) 0.625 mg oral tablet (9 sources) Estrogen [...] 21.0 mg/dL High 7.0 - 18.0 mg/dL [facility] No Panel Informationon 08-22 Interpretation and review of laboratory results Abnormal [facility] CREATININEon 08-22-2023 Creatinine [Mass/Vol] 1.48 mg/dL High 0.55 - 1.02 mg/dL [facility] GFR/1.73 sq M.predicted CKD-EPI (S/P/Bld) [Vol rate/Area] 44 Low 60 - PINF [facility] EGFR-NON AF TUNISIAN 36 Low 60 - PINF [facility] XR LSPINE MIN 4 VIEWSon 05-15 XR [...] by: JAY HUFF Date: 2022-06-07 12:11 Normal [facility] B-Type Natriuretic Peptideon 10-10-2021 Natriuretic peptide B (Bld) [Mass/Vol] 64.0 pg/mL Normal 5-100 [facility] Comment on above: Result Comment: PERF ORMED BY: [place] [id number] PATHOLOGIST [employer] RAY DEVELOPER SHIMA SY M.D. Performed By: #### C K, CKMB, CBC, BMP, BNP #### [address] Basic Metabolic Panelon 09-13 Calcium [Mass/Vol] 9.3 mg/dL Normal 8.2-10.2 [facility] Comment on above: Performed By: #### C K, CKMB, CBC, BMP, BNP #### [facility] [address] Chloride [Moles/Vol] 104 mmol/L Normal 95-114 [facility] Comment on above: Performed By: #### C K, CKMB, CBC, BMP, BNP #### [facility] [address] CO2 [Moles/Vol] 19.9 mmol/L Low 22.0-30.0 [facility] Comment on above: Performed By: #### C K, CKMB, CBC, BMP, BNP #### [address] Creatinine [Mass/Vol] 1.27 mg/dL High 0.44-1.03 [facility] Comment on above: Performed By: #### C K, CKMB, CBC, BMP, BNP #### [address] Creatinine Clr Calc Pharmacy 45.75 [facility] Comment on above: Result Comment: PERF ORMED BY: [place] [id number] PATHOLOGIST X R[employer] DEVELOPER SHIMA SY M.D. Performed By: #### C K, CKMB, CBC, BMP, BNP #### [address] Estimated GFR ( Demetra 52 [facility] Comment on above: Result Comment: GFR estimated reference range: According to KDOQI guidelines, <60 ml/min/1.73m2 is sufficient to diagnose a patient with chronic kidney disease. Performed By: #### C K, CKMB, CBC, BMP, BNP #### [address] Estimated GFR (Non- Am 43 [facility] Comment on above: Performed By: #### C K, CKMB, CBC, BMP, BNP #### [address] Glucose [Mass/Vol] 96 mg/dL Normal 70-100 [facility] Comment on above: Result Comment: [place] Glucose Reference Range is dependent on time and content of last meal. Glucose of more than 200 mg/dL in a nonstressed, ambulatory subject supports the diagnosis of Diabetes Mellitus. ADA recommended reference range Performed By: #### C K, CKMB, CBC, BMP, BNP #### [facility] [address] Potassium [Moles/Vol] 3.7 mmol/L Normal 3.5-5.1 [facility] Comment on above: Performed By: #### C K, CKMB, CBC, BMP, BNP #### [facility] [address] Sodium [Moles/Vol] 135 mmol/L Low 136-146 [facility] Comment on above: Performed By: #### C K, CKMB, CBC, BMP, BNP #### [facility] [address] Urea nitrogen [Mass/Vol] 17 mg/dL Normal 9-23 [facility] Comment on above: Performed By: #### C K, CKMB, CBC, BMP, BNP #### [facility] [address] COVID-19 Antigenon 2 COVID-19 [facility] [...] its performance Bella Disclaimer characteristic determined by [employer] and Bella Disclaimer validated at [facility]. This Bella Disclaimer test has not been [...] COVID-19 infection under section 564(b)(1) of the Belal Disclaimer Act, 21 U.S.C. 360bbb-3(b)(1), unless the Bella Disclaimer authorization is terminated or revoked sooner. PERFORMED BY: [place] [address] PATHOLOGIST X RAY DEVELOPER SHIMA SY M.D. Normal [facility] Comment on above: Performed By: #### F CARAL, COVID-19 BELLA, SOFIANEG #### [address] Complete Blood Count Auto Di ffon 10-10-2021 Basophils (Bld) [#/Vol] 0.1 10*3/uL Normal 0.0-0.2 [facility] Comment on above: Result Comment: PERF ORMED BY: [place] [address] PATHOLOGIST X RAY DEVELOPER SHIMA SY M.D. Performed By: #### C K, CKMB, CBC, BMP, BNP #### [address] Basophils/100 WBC (Bld) 1.4 % Normal . [facility] Comment on above: Performed By: #### C K, CKMB, CBC, BMP, BNP #### [address] Eosinophils (Bld) [#/Vol] 0.2 10*3/uL Normal 0.0-0.45 [facility] Comment on above: Performed By: #### C K, CKMB, CBC, BMP, BNP #### [address] Eosinophils/100 WBC (Bld) 2.3 % Normal . [facility] Comment on above: Performed By: #### C K, CKMB, CBC, BMP, BNP #### [address] Erythrocyte distribution width (RBC) [Ratio] 13.2 % Normal 11.9-15.3 [facility] Comment on above: Performed By: #### C K, CKMB, CBC, BMP, BNP #### [address] Hematocrit (Bld) [Volume fraction] 41.5 % Normal 34.0-46.4 [facility] Comment on above: Performed By: #### C K, CKMB, CBC, BMP, BNP #### [address] Hemoglobin (Bld) [Mass/Vol] 13.8 g/dL Normal 11.8-15.4 [facility] Comment on above: Performed By: #### C K, CKMB, CBC, BMP, BNP #### [address] Lymphocytes (Bld) [#/Vol] 3.6 10*3/uL Normal 1.00-4.8 [facility] Comment on above: Performed By: #### C K, CKMB, CBC, BMP, BNP #### [address] Lymphocytes/100 WBC (Bld) 39.0 % Normal . [facility] Comment on above: Performed By: #### C K, CKMB, CBC, BMP, BNP #### [address] MCH (RBC) [Entitic mass] 30.7 pg Normal 24.7-34.3 [facility] Comment on above: Performed By: #### C K, CKMB, CBC, BMP, BNP #### [address] MCV (RBC) [Entitic vol] 91.9 fL Normal 80-100 [facility] Comment on above: Performed By: #### C K, CKMB, CBC, BMP, BNP #### [address] Mean Corpuscular HGB Conc 33.4 g/dL Normal 32.0-35.0 [facility] Comment on above: Performed By: #### C K, CKMB, CBC, BMP, BNP #### [address] Monocytes (Bld) [#/Vol] 0.8 10*3/uL Normal 0.0-0.8 [facility] Comment on above: Performed By: #### C K, CKMB, CBC, BMP, BNP #### [address] Monocytes/100 WBC (Bld) 9.0 % Normal . [facility] Comment on above: Performed By: #### C K, CKMB, CBC, BMP, BNP #### [address] Neutrophils (Bld) [#/Vol] 4.4 10*3/uL Normal 1.8-7.7 [facility] Comment on above: Performed By: #### C K, CKMB, CBC, BMP, BNP #### [address] Neutrophils/100 WBC (Bld) 48.3 % Normal . [facility] Comment on above: Performed By: #### C K, CKMB, CBC, BMP, BNP #### [place] [address] [place] Nucleated RBC/100 WBC (Bld) [Ratio] 0.1 % Normal 0-0.5 [facility] Comment on above: Performed By: #### C K, CKMB, CBC, BMP, BNP #### [address] Platelet mean volume (Bld) [Entitic vol] 7.0 fL Normal 6.3-10.7 [facility] Comment on above: Performed By: #### C K, CKMB, CBC, BMP, BNP #### [place] [address] [place] Platelets (Bld) [#/Vol] 237 10*3/uL Normal 150-450 [facility] Comment on above: Performed By: #### C K, CKMB, CBC, BMP, BNP #### [place] [address] [place] RBC (Bld) [#/Vol] 4.51 10*6/uL Normal 3.60-5.00 [facility] Comment on above: Performed By: #### C K, CKMB, CBC, BMP, BNP #### [facility] [address] [place] [address] WBC (Bld) [#/Vol] 9.1 10*3/uL Normal 4.5-11.0 [facility] Comment on above: Performed By: #### C K, CKMB, CBC, BMP, BNP #### [facility] [address] Creatine Kinaseon 10-10-2021 CK [Catalytic activity/Vol] 69 U/L Normal 22-269 [facility] Comment on above: Performed By: #### C K, CKMB, CBC, BMP, BNP #### [address] Creatinine Kinase MBon 10-10 CK.MB [Mass/Vol] 3.1 ng/mL Normal 0.6-6.3 [facility] Comment on above: Performed By: #### F CARLA, COVID-19 BELLA, SOFIANEG #### [address] CKMB Relative Index 4.4 % High 0.00-2.50 [facility] Comment on above: Result Comment: PERF ORMED BY: [place] [address] PATHOLOGIST X RAY DEVELOPER SHIMA SY M.D. Performed By: #### F CARLA, COVID-19 BELLA, SOFIANEG #### [place] [address] [place] ECG 12 lead ECGon 10-10-2021 ECG 12 lead ECG [facility] Main [place] [address] [place] [address] Electrocardiograph Report Signed Patient: Мария Roman MR#: [id number] : 1965 Acct:[id number] Age/Sex: 55 / F ADM Date: 10/10/21 Loc: ER Room: Type: [facility] ER Attending Dr: Ordering Provider: [...] leads Confirmed by ABIMAEL PARKS DO ([id number]), newspaper editor Trent Garay ([id number]) on 10/11/2021 11:15:22 AM Referred By: Electronically Signed By:ABIMAEL PARKS DO Transcribed By: MUS Signed By Abimael Parks DO 111[address] [facility] Influenza A and B Antigenon 10-10-2021 [...] samples is recommended. Note 7 PERFORMED BY: [facility] [address] [place] [address] PATHOLOGIST X RAY DEVELOPER SHIMA SY M.D. [facility] Comment on above: Performed By: #### SHEA HIGHTOWER-19 CLAYTON BLANCOIANEG #### [facility] [address] [place] [address] [facility] Bella Ag Negativeon 10-11-19 Bella Ag Negative Negative Normal Negative [facility] Comment on above: Result Comment: This is a duplicate Bella SARS Antigen (BLAYNE) result to be used for statistical tracking purpose only. PERFORMED BY: [place] [address] PATHOLOGIST X RAY DEVELOPER SHIMA SY M.D. Performed By: #### F CARLA, COVID-19 BELLA, SOFIANEG #### [address] Troponin I High Sensitivityo n 10-10-2021 Troponin I High Sensitivity 12 pg/mL Normal 0-15 [facility] Comment on above: Result Comment: PERF ORMED BY: [place] [address] PATHOLOGIST X RAY DEVELOPER SHIMA SY M.D. Performed By: #### H S TROP #### [address] XR chest 1V portableon 10-10 XR chest 1V portable [facility] Main [place] [address] [place] [address] XRay Report Signed Patient: Мария Roman MR#: [id number] : 1965 Acct:[id number] Age/Sex: 55 / F ADM Date: 10/10/21 Loc: ER Room: Type: [facility] ER Attending Dr: Ordering Provider: [...] David Walker M.D.10/10/2021 7:52 PM Dictation Location: [place] [address] Transcribed By: [facility] 10/10/211951 Dictated By: David Walker II, MD 10/10/211949 Signed By: 10/10/211951 Normal [facility] XR ANKLE LEFT 3+ VIEWS (SHERRY ROSENBAUM)on [...] bodies. IMPRESSION: No obvious fractures or dislocations. [facility] Workstation ID: [id number] Dictated by: LOULOU TREVINO on [place] Jul 29, 2021 8:55:54 PM EST Transcribed by: DARYA SCHILLING on [place] Jul 29, 2021 8:57:24 PM EST Finalized by: LOULOU TREVINO on [place] Jul 29, 2021 10:03:27 PM EST Normal [facility] Comment on above: Order Comment: Injur y/Trauma or Illness?:Injury/Trauma How long have you had these symptoms (acute/chronic)?:Acute Reason for exam?:pain History of cancer?:u Surgeries, chemotherapy, or radiation?:u Type of Exam?:Initial Mechanism of injury?:fall Vital Signs Date Time Vital Sign Value Performing Clinician Major kim 12-09-2023 15:25-0400 Body height 168.91 cm MD Chinmay Manning Work Phone: [facility] 12-09-2023 15:25-0400 Body mass index (BMI) [Ratio] 32.3 kg/m2 MD Chinmay Manning Work Phone: [facility] 12-09-2023 15:25-0400 Body temperature 97.3 [degF] MD Chinmay Manning Work Phone: [facility] 12-09-2023 15:25-0400 Body weight 92.24 kg MD Chinmay Manning Work Phone: [facility] 12-09-2023 15:25-0400 Diastolic blood pressure 72 mm[Hg] MD Chinmay Manning Work Phone: [facility] 12-09-2023 15:25-0400 Heart rate 113 /min MD Chinmay Manning Work Phone: [facility] 12-09-2023 15:25-0400 Respiratory rate 16 /min MD Chinmay Manning Work Phone: [facility] 12-09-2023 15:25-0400 SaO2% (BldA) [Mass fraction] 96 % MD Chinmay Manning Work Phone: [facility] 12-09-2023 15:25-0400 Systolic blood pressure 112 mm[Hg] MD Chinmay Manning Work Phone: [facility] 01-17-2022 16:30-0400 Body height 168.91 cm Bahman Meneses Other [employer] Other 01-17-2022 16:30-0400 Body mass index (BMI) [Ratio] 21.62 kg/m2 Bahman Meneses Other [employer] Other 01-17-2022 16:30-0400 Body weight 61.69 kg Bahman Meneses Other [employer] Other 10-16-2021 16:45-0400 Body height 168.91 cm Bahman Meneses Other [employer] Other 10-16-2021 16:45-0400 Body mass index (BMI) [Ratio] 20.98 kg/m2 Bahman Meneses Other [employer] Other 10-16-2021 16:45-0400 Body weight 59.88 kg Bahman Meneses Other [employer] Other 07-12-2021 11:05-0500 Body height 168.91 cm Christiana Ginty Other [employer] Other 07-12-2021 11:05-0500 Body temperature 97.5 [degF] Christiana Ginty Other [employer] Other 07-12-2021 11:05-0500 Diastolic blood pressure 106 mm[Hg] Christiana Ginty Other [employer] Other 07-12-2021 11:05-0500 Respiratory rate 18 /min Christiana Ginty Other [employer] Other 07-12-2021 11:05-0500 SaO2% (BldA) [Mass fraction] 98 % Christiana Ginty Other [employer] Other 07-12-2021 11:05-0500 Systolic blood pressure 153 mm[Hg] Christiana Ginty Other [employer] Other 07-04-2021 12:00-0500 Body height 168.91 cm Justin Che II Other [employer] Other 07-04-2021 12:00-0500 Body mass index (BMI) [Ratio] 17.88 kg/m2 Justin Che II Other [employer] Other 07-04-2021 12:00-0500 Body weight 51.03 kg Justin Che II Other [employer] Other Encounters Encounter Date Encounter Type Care Provider Facility Start: 02-12-2024 End: 02-12-2024 ambulatory SHAIKH CECILIO Not Available Start: 12-09-2023 End: 12-09-2023 ambulatory MD Chinmay Manning Work Phone: [facility] Work Phone: Start: 12-09-2023 End: 12-09-2023 Patient encounter procedure MD Chinmay Manning Work Phone: [facility] [place] Work Phone: Start: 11-17-2023 End: 11-17-2023 ambulatory SHAIKH CECILIO Not Available Start: 09-25-2023 Registered Recurring MD Jeff Manning Work Phone: [facility]- [facility] Start: 08-22-2023 End: 08-22-2023 ambulatory Jorge Luis Barajas Other [facility] [employer] Other Start: 08-22-2023 [facility] Result Encounter Shaikh Cecilio WALKER Work Phone: [facility] External Department Unsolicited Start: 08-22-2023 [facility] Result Encounter Shaikh Cecilio WALKER Work Phone: [facility] External Department Unsolicited Start: 08-22-2023 Telephone encounter Jorge Luis Barajas [facility] [place] Start: 08-18-2023 End: 08-18-2023 ambulatory SHAIKH CECILIO Not Available Start: 06-16-2023 End: 06-16-2023 ambulatory SHAIKH CECILIO Not Available Start: 07-02-2022 End: 07-03-2022 ambulatory BECCA THOMAS Facility: Start: 06-07-2022 End: 06-08-[address] ETHAN COATS Facility: Start: 01-28-2022 End: 01-28-2022 ambulatory Bahman Meneses Other [employer] Other Start: 01-28-2022 Telephone encounter Bahman Astudillojoy vasquez [facility] Start: 01-17-2022 End: 01-17-2022 ambulatory Bahman Zaira Other [employer] Other Start: 01-17-2022 Office outpatient visit 15 minutes Bahman Butlerormack [facility] Start: 11-09-2021 End: 11-09-2021 ambulatory Bahman Zaira Other [employer] Other Start: 11-09-2021 Telephone encounter Bahman Butlerdipikajoy vasquez [facility] Start: 10-16-2021 End: 10-16-2021 ambulatory Bahman Zaira Other [employer] Other Start: 10-16-2021 Office outpatient visit 15 minutes Bahman Butlerormack [facility] Start: 10-10-2021 End: 10-11-2021 Emergency department patient visit Ethan Coats Facility:[facility] Start: 07-28-2021 End: 08-04-2021 Evaluation and management of inpatient [facility] Start: 07-12-2021 End: 07-12-2021 ambulatory Christiana Ginty Other [employer] Other Start: 07-12-2021 Office outpatient visit 15 minutes Christiana Ginty [facility] Start: 07-04-2021 End: 07-04-2021 ambulatory Justin Che II Other [employer] Other Start: 07-04-2021 Office outpatient new 30 minutes Justin [place] II [facility] Procedures Date Procedure Procedure Detail Performing Clinician Start: 08-22-2023 MICAELA hernandez MD Work Phone: Start: 08-22-2023 [facility] Shaikh Conchis pinto MD Work Phone: Plan of Treatment Date Care Activity Detail Author Start: 11-17-2023 End: 11-17-2023 Patient encounter procedure 11/17/2023 5:00 PM EDT Office Visit [facility] [address] [place] [place] [address] Shaikh Hernandes MD [address] [place] [id number] [facility] Start: 09-12-2023 Screening for malign ant neoplasm of breast Mammogram [facility] Comment on above: Postponed from 12/07 (Insurance / Financial) Start: 03-14-2023 Influenza vaccination Influenz a Vaccine (#1) [facility] Start: 12-07-1993 Screening for malign ant neoplasm of cervix [facility] Start: 12-07-1984 Screening for malign ant neoplasm of cervix Pap Smear [facility] Start: 1965 Medicare Annual Well ness (AWV) Medicare Annual Wellness (AWV) [facility] Start: 1965 Screening for malign ant neoplasm of colon [facility] Renal function 2000 panel - Serum or Plasma [facility] Immunizations Immunization Date Immunization Notes Care Provider Fa [facility] 07-12-2021 tetanus and diphther ia toxoids, adsorbed, preservative free, for adult use (5 Lf of tetanus toxoid and 2 Lf of diphtheria toxoid) Christiana Lazaro Other [employer] Other Payers Date Payer Category Payer Unknown [employer] [id number] 2023-Present [address] [place] [address] [id number] 2023 Unknown [id number] 2022 Medicare [employer] E [employer] [id number] 2022-Present [address] [place] [address] [id number] 2022 Unknown [id number] 2021 Unknown [id number] 1965 Unknown [id number] 1963 Unknown [id number] [id number] 1963 Unknown [id number] [id number] 1963 Unknown [id number] [id number] 1963 Unknown [id number] [id number] 1963 Unknown [id number] [id number] 1963 Unknown [id number] [id number] 1959 Unknown [id number] Medicare [id number] Self-pay Self Pay [id number] Social History Date Type Detail Facility Unknown if ever smoked [facility] [employer] Other Start: 08-18-2023 Sex Assigned At N [facility] [employer] Other Start: 06-16-2023 [facility] History of [...] 12-09-2023 Tobacco smoking stat [facility] Smoker (finding) [facility] Start: 1965 Sex Assigned At Female F [facility] Medical Equipment Procedure Code Equipment Code Equipment Origin al Text Equipment Identifier Dates Capsule endoscopy, for patency of lumen evaluation Video capsule endoscopy system [id number] FDA Start: 08-16-2019 Evaluation note 01-28-2022 Note Date & Type Note Facility 01-28-2022 Evaluation note Encounter Date Diagnosis Assessment Notes Jan, GERD (gastroesop hageal reflux disease) (ICD-10 - K21.9) [employer] Other Evaluation note 01-17-2022 Note Date & Type Note Facility 01-17-2022 Evaluation note Encounter Date Diagnosis Assessment Notes Jan, Diarrhea (ICD-10 - R19.7) Continue Dicyclomine Jan, GERD (gastroesoph ageal reflux disease) (ICD-10 - K21.9) Continue Omeprazole without change [employer] Other Evaluation note 11-09-2021 Note Date & Type Note Facility 11-09-2021 Evaluation note Encounter Date Diagnosis Assessment Notes Oct, GERD (gastroesop hageal reflux disease) (ICD-10 - K21.9) [employer] Other Evaluation note 10-16-2021 Note Date & Type Note Facility 10-16-2021 Evaluation note Encounter Date Diagnosis Assessment Notes Oct, Diarrhea, unspecified (ICD-10 - R19.7) CONTINUE DICYCLOMINE DIRECTED RTO 3 MONTHS Oct, GERD (gastroesophag eal reflux disease) (ICD-10 - K21.9) STOP CARAFATE [employer] Other Evaluation note 07-12-2021 Note Date & [...] nonstick telfa -After 48 hours 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 Recommended that she continue with [id number] er oral anti-inflammat ories. Informed her that [...] 4 weeks to check on her progress. [employer] Other History general Narrative - Reported 04-08-2014 [...] Hospitalization History [facility] [place] [employer] Other History general Narrative - Reported 04-08-2014 [...] Hospitalization History [facility] [place] [employer] Other Evaluation note Note Date & Type Note Facility Evaluation note No Information [employer] Other Evaluation note Note Date & Type Note Facility Evaluation note Diagnosis Onset Date Chronic kidney disease, stage 3b acute Hypertensive nephropathy acu te Lesion of left [place] kidney [facility] Work Phone: Summary Purpose Family History No [...] stage 3b Hypertensive nephropathy Lesion of left [place] kidney Additional Source Comments INFORMATION SOURCE (unrecogn ized section and content) DATE CREATED AUTHOR 08/08/2021 [facility] DATE CREATED AUTHOR AUTHOR'S ORGANIZ ATION 08/17/2022 [facility] DATE CREATED AUTHOR AUTHOR'S ORGANIZ ATION 11/27/2022 [facility] DATE CREATED AUTHOR AUTHOR'S ORGANIZ ATION 02/15/[address] [facility] d[facility] Specialists EPIC REASON FOR VISIT (unrecogniz ed section and content) Left Ankle PainFINGER LACERA TIONPATIENT HERE FOR ANNUAL VISIT FOR DIARRHEA. PATIENT WAS TO START ALOSETRON. PT IS NOT TAKING THE ALOESTRONmedicationPATIENT HERE FOR 3 MONTH FOLLOW UP TO DIARRHEA AND GERD. PATIENT WAS TO CONTINUE ON THE DICYCLOMINE, OMEPRAZOLE AND STOP THE CARAFATE.RefillsREFERRAL Care Teams (unrecognized sec tion and content) Photograph Tinter Relationship Specialty Start Date End Date Shaikh Hernandes MD [address] [place] [id number] PCP - General Internal Medicine 08/11/23 Margarette Estevez NP [address] [place] [place] [id number] Nurse Practitioner Family Medicine 05/26/23 Team Status: [...] BE BASED ON THE PRIMARY CLINICAL RECORDS. [facility] [employer] provides no warranty or guarantee of the accuracy or completeness of information in this document.
[2024-02-21 07:55] LABS: Estimated Average Glucose 105 mg/dL; Glycohemoglobin A1C 5.3 % (4.5-6.2)
[2024-02-21 07:57] LABS: Alanine Aminotransferase 18 U/L (14-59); Albumin Globulin Ratio 0.9; Albumin Level 3.5 g/dL (3.4-5.0); Alkaline Phosphatase 136 U/L (46-116); Anion Gap 18.7; Aspartate Amino Transferase 16 U/L (15-37); BUN Creatinine Ratio 13.8; Bilirubin Total 0.3 mg/dL (0.2-1.0); Chloride 105 mmol/L (98-107); Chol HDL Ratio 5.2; Cholesterol 191 mg/dL (<=200); Estimated GFR (African America 40 (>=60); Estimated GFR (Non-African Ame 33 (>=60); Globulin 3.7 g/dL; Glucose 107 mg/dL (74-106); HDL Cholesterol 37 mg/dL (40-60); Potassium 3.7 mmol/L (3.5-5.1); Sodium 140 mmol/L (136-145); Total Protein 7.2 g/dL (6.4-8.2); Triglycerides 242 mg/dL (<=150); VLDL CHOLESTEROL 48.4 mg/dL
[2024-02-21 08:16] LABS: Basophils Absolute Auto 0.1 10^3/uL (0.0-0.1); Basophils Percent Auto 1.2 % (0.2-2.0); Eosinophils Absolute Auto 0.2 10^3/uL (0.0-0.7); Eosinophils Percent Auto 1.5 % (0.9-7.0); Hematocrit 44.9 % (36.0-48.0); Hemoglobin 14.9 g/dL (12.0-16.0); Lymphocytes Absolute Auto 2.9 10^3/uL (1.2-3.8); Lymphocytes Percent Auto 30.2 % (20.5-60.0); Mean Corpuscular HGB Conc 33.2 g/dL (29.9-35.2); Mean Corpuscular Hemoglobin 30.6 pg (26.7-34.0); Mean Corpuscular Volume 92.2 fL (81.0-99.0); Mean Platelet Volume 9.8 fL (9.5-13.5); Monocytes Absolute Auto 0.7 10^3/uL (0.3-0.8); Monocytes Percent Auto 7.1 % (1.7-12.0); Neutrophils Absolute Auto 5.7 10^3/uL (1.4-6.5); Platelet Count 246 10^3/uL (150-450); Red Blood Count 4.87 10^6/uL (4.20-5.40); Red Cell Distribution Width 12.3 % (11.0-15.0); White Blood Count 9.7 10^3/uL (4.0-11.0)
== END 2024-02-21 07:05 | disposition home or self-care (01) ==
LOC: LAB 07:04
PROVIDERS: PCP Internal Medicine; Visit Provider Internal Medicine
DX: N28.9 Disorder of kidney and ureter, unspecified (principal); I12.9 Hypertensive chronic kidney disease with stage 1 through stage 4 chronic kidney disease, or unspecified chronic kidney disease; N18.32 Chronic kidney disease, stage 3b; K62.5 Hemorrhage of anus and rectum; Z13.1 Encounter for screening for diabetes mellitus; Z13.220 Encounter for screening for lipoid disorders
CPT/HCPCS: 36415; 80053; 80061; 83036; 85025

== ENCOUNTER 2024-04-28 19:33 | Outpatient (REF) | payer BC, OTHER, SELFPAY ==
--- OUTSIDE RECORDS SUMMARY | 2024-04-28 19:44 | XMS_ITS | CCD ---
Author Organization [facility] Care Team Providers Care Coater Name Role Phone ELIANE BEEBE Admitting Unavailable ELIANE BEEBE Attending Unavailable SANDRA LIZARRAGA Consulting Unavailable Justin Che II Unavailable Christiana Lazaro Unavailable Bahman Meneses Unavailable [phone] Ethan Coats Primary Care Unavailable Abimael Parks Attending Unavailable Abimael Parks Admitting Unavailable JORGE L, DR ROONEY Admitting Unavailable JORGE L, DR ROONEY Primary Care Unavailable JORGE L, DR ROONEY Consulting Unavailable JORGE L, DR ROONEY Attending Unavailable DARIA, DR JAY Osuna Consulting Unavailable BECCA THOMAS Admitting Unavailable BECCA THOMAS Consulting Unavailable BECCA THOMAS Attending Unavailable JORGE L, DR ROONEY Primary Care Unavailable Herb OCEAN CLAM BOAT CAPTAIN, Margarette Unavailable Shaikh Hernandes MD Primary Care Provider Jorge Luis Barajas Unavailable MD Chinmay Manning Attending Provider [phone] MD Chinmay Manning Attending Provider [phone] SHAIKH HERNANDES Attending Unavailable SHAIKH HERNANDES Attending Unavailable SHAIKH HERNANDES Attending Unavailable SHAIKH HERNANDES Attending Unavailable ROSITA BRUCE Attending Unavailabl e Allergies Allergy Classification Reported Allergen(s) Allergy Type Date of Onset Reaction(s) Facility Anti-Epileptic Agents (1 source) gabapentin Drug Allergy 01-18-[address] [place] [address] Dihydrofolate Reductase Inhibitors (antibiotic) (1 source) Trimethoprim Drug Allergy 10-11-19 [facility] Opioid Agonists (2 sources) HYDROmorphone Drug Allergy 10-11-19 22 sick, [facility] peanut allergenic extract (1 source) peanut allergenic extract Drug Allergy 10-11-19 Rash [facility] Pollen (1 source) Bee pollen Substance Allergy 10-11-19 22 Anaphylaxis [facility] pregabalin (1 source) pregabalin Drug Allergy 01-18-20 Unknown Reaction [facility] Promethazine (1 source) Promethazine Drug Allergy 10-11-19 Rash [facility] Quinolones (antibiotic) (1 source) Ciprofloxacin Drug Allergy 01-18-20 itching, nausea [facility] Sulfonamides (antibiotic) (1 source) Sulfamethoxazole Drug Allergy 10-11-19 [facility] Unclassified (1 source) codeine, depakote, bactrium, s Allergy to substance 01-18-20 [facility] Unclassified (2 sources) walnuts Allergy to substance 07-03-20 Anaphylaxis [facility] Valproate (1 source) Valproate Drug Allergy 10-11-19 itching, nausea [facility] (1 source) tree nut, unspecified; Translations: [TREE NUTS] Propensity to adverse reactions to drug (disorder) 07-28-19 [facility] Repository (1 source) BEE VENOM PROTEIN (HONEY BEE); Translations: [BEE VENOM PROTEIN (HONEY BEE)] Propensity to adverse reactions to drug (disorder) 11-30-19 15 [facility] Repository (9 sources) Ciprofloxacin Drug Allergy 09-24-19 18 [facility] [employer] Other (8 sources) gabapentin Drug Allergy 03-17-20 24 Unknown, Unknown Reaction [facility] (9 sources) HYDROmorphone Drug Allergy 06-13-20 23 Unknown, sick [employer] Other (8 sources) pregabalin Drug Allergy 03-17-20 24 Unknown, Unknown Reaction [facility] (7 sources) codeine, depakote, bactrium, sulfa, bees walnuts Propensity to adverse reactions Unknown [employer] Other (1 source) Acetaminophen / HYDROcodone Drug Allergy 11-03-19 15 [facility] Repository (1 source) bee venom Drug allergy (disorder) 11-30-19 15 [facility] Repository (2 sources) Codeine Drug Allergy 11-03-19 15 Hives [facility] Repository (1 source) HYDROmorphone Drug Allergy 11-30-19 15 [facility] Repository (1 source) Sulfamethoxazole / Trimethoprim Drug Allergy 11-03-19 15 [facility] Repository (1 source) Valproate Drug Allergy 11-03-19 15 [facility] Repository (1 source) Misc-Food; Translations: [Misc-Food] Food allergy (disorder) 11-03-19 15 [facility] Repository (1 source) Acetaminophen / HYDROcodone Drug Allergy 06-13-20 23 [facility] (2 sources) Bee pollen Propensity to adverse reactions 06-13-20 23 Anaphylaxis [facility] (1 source) Codeine Drug Allergy 06-13-20 23 [facility] (1 source) Erythromycin Drug Allergy 06-13-20 23 [facility] (1 source) Honey bee venom Propensity to adverse reactions 11-30-19 15 [facility] Work Phone: (1 source) Pregabalin Propensity to adverse reactions 06-13-20 23 [facility] (2 sources) Promethazine Drug Allergy 06-13-20 23 Rash [facility] (2 sources) Sulfamethoxazole Allergy to substance 06-17-20 [facility] ([facility]) Sulfamethoxazole / Trimethoprim Drug Allergy 06-13-20 23 [facility] (1 source) Valproate Drug Allergy 06-13-20 23 [facility] (1 source) Black Napoleon Flavor Propensity to adverse reactions 06-13-20 [facility] (1 source) Other Propensity to adverse reactions 07-28-19 22 Hives, Shortness of breath, Swelling [facility] (1 source) peanut allergenic extract Drug Allergy 03-17-20 24 [facility] (1 source) Trimethoprim Drug Allergy 03-17-20 24 [facility] (1 source) Valproate Drug Allergy 03-17-20 24 itching, nausea [facility] Medications Current Medications Medication Drug Class(es) Dates [...] Active cyclobenzaprine hydrochloride 10 mg oral tablet (3 sources) Muscle Relaxant Start: 12-09-2023 take 10 [...] Elderberry preparation (3 sources) Elderberry Activ e [id number] 0.3 ml EPINEPHrine 1 mg/ml auto-injector (4 sources) alpha-Adrenergic Agonist, beta-Adrenergic Agonist, Catecholamine Start: 12-09-2023 Epinephrine Active 0.3 ML IM December 09, 2023 12:00am EPINEPHrine (EPI PEN IJ) Inject as directed. 0 Active EPINEPHrine 0.3 MG/0.3ML as directed Injection Active estradiol 1 mg oral tablet (3 sources) Estrogen Start: 12-09-2023 take 1 mg by mouth once daily Estradiol Active 1 MG PO Daily December 09, 2023 12:00am take 1 tablet by mouth in the mo rning estradiol (Estrace) 1 MG tablet Take 1 mg by mouth in the morning. 0 Active losartan potassium 100 mg oral tablet (3 sources) Angiotensin 2 Receptor Colby Start: 08-11-2023 End: 02-07-2024 take 100 mg by mouth once daily Losartan Active 100 MG PO Daily December 09, 2023 12:00am Magnesium (3 sources) Magnesium Active magnesium oxide 400 mg oral tablet (1 source) Start: 03-17-2024 take 400 mg by mouth once daily Magnesium Oxide Active 400 MG PO Daily March 17, 2024 12:00am Multi For Her 50+ (3 sources) Multi For Her 50 + Active mupirocin 0.02 mg/mg topical ointment (1 source) RNA Synthetase Inhibitor Antibacterial Start: 07-12-2021 Mupirocin 2 % 1 application Externally Twice a day for 5 day(s) Jun, Active 24 hr nicotine 0.875 mg/hr transdermal system (1 source) Cholinergic Nicotinic Agonist Start: 03-17-2024 Nicotine Active TRANSDERML March 17, 2024 12:00am omeprazole 20 mg delayed release oral capsule (8 sources) Proton Pump Inhibitor Start: 12-09-2023 take 20 mg by mouth once daily Omeprazole Active 20 MG PO Daily December 09, 2023 12:00am Start: 10-16-2021 take 1 capsule by [facility] once daily Omeprazole 20 MG 1 capsule 30 minutes before morning meal Orally Once a day for 90 days Oct, Active 24 hr paliperidone 3 mg extended release oral tablet (8 sources) Atypical Antipsychotic Start: 12-09-2023 take 3 mg by mouth once daily in the morning Paliperidone Active 3 MG PO Every morning December 09, 2023 12:00am take 1 tablet by benedicto every twenty-four hours Paliperidone ER 6 MG 1 tablet in the morning Orally Once a day Active take 1 tablet by benedicto every twenty-four hours in the morning paliperidone (Invega) 3 MG 24 hr tablet Take 3 mg by mouth in the morning. Do not crush, chew, or split. . 0 Active take 1 tablet by benedicto every twenty-four hours Paliperidone ER 3 MG 1 tablet in the morning Orally Once a day Active pramoxine hydrochloride 10 mg/ml rectal foam (1 source) Start: 06-17-2019 Proctofoam 1 % as directed Rectal PRN for 30 day(s) Jun, Active topiramate 100 mg oral tablet (12 sources) Start: 09-23-2017 End: 12-09-2023 take 1 tablet by mouth once daily Topiramate (Topamax) 100 mg tablet Active 100 MG PO Daily December 09, 2023 12:00am Topamax Active take 1 capsule by [facility] three times daily Topiramate 100 MG 1 capsule Oral TID for 30 Active traZODone hydrochloride 100 mg oral tablet (10 sources) Serotonin Reuptake Inhibitor Start: 12-09-2023 take [...] (Original) busPIRone hydrochloride 10 mg oral tablet (4 sources) Start: 07-13-2020 End: 12-09-2023 Buspirone Discontinued 10 MG PO As Directed July 13, 2020 1:00am December 09, 2023 3:31pm BuSpar Active take 1 tablet by mouth twice nino ly BuSpar 10 MG 1 tablet Orally Twice a day Active citalopram 20 mg oral tablet (4 sources) Serotonin Reuptake Inhibitor Start: 07-13-2020 End: 12-09-2023 Citalopram Discontinued 20 MG PO As Directed July 13, 2020 1:00am December 09, 2023 3:31pm Citalopram [place] bromide Active dicyclomine hydrochloride 10 mg oral capsule (9 sources) Anticholinergic Start: 08-16-2019 End: 12-09-2023 take [...] Active 1 ml erenumab-aooe 70 mg/ml auto-injector (3 sources) Start: 07-13-2020 End: 12-09-2023 Erenumab-Aooe (Aimovig Autoinjector) 70 mg/mL auto-injector Discontinued 70 MG SUBCUT As Directed July 13, 2020 1:00am December 09, 2023 3:31pm inject 70 mg by subc utaneous injection every month Aimovig 70 MG/ML as directed Subcutaneou s ONCE A MONTH Active estrogens, conjugated (mcfp) 0.625 mg oral tablet (11 sources) Estrogen Start: 07-13-2020 End: 12-09-2023 take 1 tablet by mouth once daily Conjugated Estrogens (Premarin) 0.625 mg tablet Discontinued 0.625 MG PO Daily July 13, 2020 1:00am December 09, 2023 3:31pm Start: 09-23-2017 End: 08-16-2019 take 0.625 mg by mouth once daily Conjugated Estrogens Discontinued 0.625 MG PO Daily September 23, 2017 12:00am August 16, 2019 7:38am sertraline 100 mg oral tablet (2 sources) Serotonin Reuptake Inhibitor Start: 09-23-2017 End: 07-13-2020 take 100 mg by mouth once daily Sertraline Discontinued 100 MG PO Daily September 23, 2017 12:00am July 13, 2020 1:21pm sucralfate 1000 mg oral tablet (6 sources) Aluminum Complex Start: 09-23-2017 End: 12-09-2023 take 1 tablet by mouth four times daily Sucralfate Discontinued 1 TAB PO Four times daily September 23, 2017 12:00am December 09, 2023 3:31pm Carafate Active take 1 capsule by mouth twice da inna Sucralfate 1 GM 1 capsule Oral twice times a day for 30 days Active tiZANidine 4 mg oral tablet (3 sources) Central alpha-2 Adrenergic Agonist Start: 07-13-2020 [...] of anus and rectum] Episodic Anxiety disorders (3 sources) Anxiety; Translations: [Anxiety disorder, unspecified] Onset: 2 08-18-2023 Chronic Asthma (2 sources) Asthma; Translations: [Unspecified asthma, uncomplicated] 10-10-2021 Chronic Chronic kidney disease (12 sources) Chronic kidney disease stage 2; Translations: [Chronic kidney disease, stage 2 (mild)] Onset: 3 06-16-2023 Chronic E Codes: Fall (2 sources) Fall (on) (from) other stairs and steps, initial encounter; Translations: [Fall down stairs] 07-03-2021 Episodic Esophageal disorders (11 sources) Gastroesophageal reflux disease; Translations: [Gastro-esophageal reflux disease without esophagitis] Onset: 2 Resolved: Chronic Essential hypertension (1 source) Essential hypertension; Translations: [Essential (primary) hypertension] Onset: 3 06-16-2023 Chronic Gastritis and duodenitis (7 sources) Gastritis; Translations: [Gastritis, unspecified, without bleeding] Episodic Gastrointestinal hemorrhage (20 sources) Dark stools; Translations: [Melena] 07-26-2020 Episodic Headache; including migraine (1 source) Migraine without aura, not refractory ; Translations: [Migraine without aura, not intractable, without status migrainosus] Onset: 3 06-16-2023 Chronic Headache; including migraine (7 sources) Headache; Translations: [Headache] Episodic Hemorrhoids (7 sources) Hemorrhoids; Translations: [Unspecified hemorrhoids] Episodic Hypertension with complications and secondary hypertension (4 sources) Hypertensive renal disease; Translations: [Hypertensive chronic [...] gastroenteritis and colitis] Episodic Nonspecific chest pain (2 sources) Atypical chest pain; Translations: [Other chest pain] 10-10-2021 Episodic Other and unspecified benign neoplasm (7 sources) Lipoma (clinical); Translations: [Benign lipomatous neoplasm, unspecified] Episodic Other diseases of kidney and ureters (2 sources) Kidney lesion; Translations: [Disorder of kidney and ureter, unspecified] 12-09-2023 Episodic Other diseases of kidney and ureters (2 sources) Disorder of kidney and ureter, unspecified; Translations: [...] Episodic Other nutritional; endocrine; and metabolic disorders (1 source) Hypomagnesemia; Translations: [Hypomagnesemia] 03-17-2024 Chronic Other nutritional; endocrine; and metabolic disorders (1 source) Hypomagnesemia; Translations: [Disorders of magnesium metabolism] 03-17-2024 Chronic Other nutritional; endocrine; and metabolic disorders (7 [...] colon without complications] Chronic Sprains and strains (3 sources) Sprain of other ligament of left ankle, initial encounter; Translations: [Sprain of left ankle] Onset: 1 Resolved: 1 Episodic Substance-related disorders (1 source) Tobacco dependence syndrome; Translations: [Nicotine dependence, unspecified, uncomplicated] Onset: 3 06-16-2023 Chronic Superficial injury; contusion (4 sources) Contusion of lower back; Translations: [Contusion [...] Test Name Value Interpretation Reference Range Facility Laboratory - Chemistry and C hemistry - challengeon 02-21-2024 Albumin [Mass/Vol] 3.6 g/dL 3.4-5.0 [facility] Magnesium [Mass/Vol] 1.7 mg/dL Low 1.8-2.4 [facility] Urate [Mass/Vol] 4.6 mg/dL 2.6-6.0 [facility] Bilirubin Ql (U) Negative NEGATIVE [facility] Glucose (U) [Mass/Vol] Negative NEGATIVE [facility] Ketones Ql (U) Negative NEGATIVE [facility] pH (U) 6.0 [pH] 5.0-9.0 [facility] Specific gravity (U) [Rel density] 1.020 1.005-1.025 [facility] Urobilinogen Qn (U) 0.2 {Jimmy'U}/dL 0.2-1.0 [facility] Laboratory - Specimen inform ationon 02-21-2024 Appearance (U) CLEAR CLEAR [facility] Color (U) LT. YELLOW YELLOW [facility] Laboratory - Urinalysison Leukocyte esterase Test strip Ql (U) Negative NEGATIVE [facility] Nitrite Ql (U) Negative NEGATIVE [facility] Protein (U) [Mass/Vol] 13.0 mg/dL High <=11.9 [facility] Protein Ql (U) Negative NEG/TRACE [facility] Microalbumin [Mass/volume] i n Urineon 02-21-2024 Albumin DL <= 20 mg/L (U) [Mass/Vol] mg/dL <=30.0 [facility] No Panel Informationon 02-20 25-Hydroxy Vitamin D Total 54.3 ng/mL [facility] Comment on above: <20 ng/mL Vit D defi cient20-<30 ng/mL Vit D [id number] ng/mL Vit D sufficient>100 ng/mL Potential Toxicity Parathyroid Hormone (Intact) 28 pg/mL 15-65 [facility] Comment on above: Performed at: [facility] [employer] [place] [id number] Director: Davion Noonan PhD, Phone: [phone] Phosphorus Level 4.0 mg/dL 2.6-4.7 [facility] Urine Occult Blood TRACE-I NEGATIVE [facility] Urine Random Creatinine 148.15 mg/dL 20.00-300.00 [facility] Protein/Creatinine (U) [Rati o]on 02-21-2024 Urine Protein/Creatinine Ratio 0.09 [facility] ALL BUNon 08-22-2023 Urea nitrogen [Mass/Vol] 21.0 mg/dL High 7.0 - 18.0 mg/dL [facility] No Panel Informationon 08-22 Interpretation and review of laboratory results Abnormal [facility] CREATININEon 08-22-2023 Creatinine [Mass/Vol] 1.48 mg/dL High 0.55 - 1.02 mg/dL [facility] GFR/1.73 sq M.predicted CKD-EPI (S/P/Bld) [Vol rate/Area] 44 Low 60 - [facility] EGFR-NON AF CHINESE 36 Low 60 - PINF [facility] XR LSPINE MIN 4 VIEWSon 11-2 XR LSPINE MIN 4 VIEWS EXAMINATION: XR [...] by: JAY HUFF Date: 2022-06-07 12:11 Normal [facility] B-Type Natriuretic Peptideon 10-10-2021 Natriuretic peptide B (Bld) [Mass/Vol] 64.0 pg/mL Normal 5-100 [facility] Comment on above: Result Comment: PERF ORMED BY: [place] [address] PATHOLOGIST WORSHIP PASTOR SHIMA SY M.D. Performed By: #### C K, CKMB, CBC, BMP, BNP #### [address] Basic Metabolic Panelon 09-13 Calcium [Mass/Vol] 9.3 mg/dL Normal 8.2-10.2 [facility] Comment on above: Performed By: #### C K, CKMB, CBC, BMP, BNP #### [facility] [address] [place] [address] [place] Chloride [Moles/Vol] 104 mmol/L Normal 95-114 [facility] Comment on above: Performed By: #### C K, CKMB, CBC, BMP, BNP #### [facility] [address] [place] [address] [place] CO2 [Moles/Vol] 19.9 mmol/L Low 22.0-30.0 [facility] Comment on above: Performed By: #### C K, CKMB, CBC, BMP, BNP #### [address] Creatinine [Mass/Vol] 1.27 mg/dL High 0.44-1.03 [facility] Comment on above: Performed By: #### C K, CKMB, CBC, BMP, BNP #### [address] Creatinine Clr Calc Pharmacy 45.75 [facility] Comment on above: Result Comment: PERF ORMED BY: [place] [address] PATHOLOGIST WORSHIP PASTOR SHIMA SY M.D. Performed By: #### C K, CKMB, CBC, BMP, BNP #### [address] Estimated GFR ( Demetra 52 [facility] Comment on above: Result Comment: GFR estimated reference range: According to KDOQI guidelines, <60 ml/min/1.73m2 is sufficient to diagnose a patient with chronic kidney disease. Performed By: #### C K, CKMB, CBC, BMP, BNP #### [address] Estimated GFR (Non- Am 43 [facility] Comment on above: Performed By: #### C K, CKMB, CBC, BMP, BNP #### [address] Glucose [Mass/Vol] 96 mg/dL Normal 70-100 [facility] Comment on above: Result Comment: [place] Glucose Reference Range is dependent on time and content of last meal. Glucose of more than 200 mg/dL in a nonstressed, ambulatory subject supports the diagnosis of Diabetes Mellitus. ADA recommended reference range Performed By: #### C K, CKMB, CBC, BMP, BNP #### [address] Potassium [Moles/Vol] 3.7 mmol/L Normal 3.5-5.1 [facility] Comment on above: Performed By: #### C K, CKMB, CBC, BMP, BNP #### [facility] [address] [place] [id number] [place] Sodium [Moles/Vol] 135 mmol/L Low 136-146 [facility] Comment on above: Performed By: #### C K, CKMB, CBC, BMP, BNP #### [facility] [address] [place] [id number] [place] Urea nitrogen [Mass/Vol] 17 mg/dL Normal 9-23 [facility] Comment on above: Performed By: #### C K, CKMB, CBC, BMP, BNP #### [facility] [address] [place] [id number] [facility] COVID-19 Antigenon 2 COVID-19 Antigen Healthcare Worker?: N Belal Reference Bella Reference Negative SARS-CoV+SARS-CoV-2 (COVID-19) Ag [...] its performance Bella Disclaimer characteristic determined by [employer] and Bella Disclaimer validated at [facility]. This Bella Disclaimer test has not [...] is terminated or revoked sooner. PERFORMED BY: [place] [address] PATHOLOGIST WORSHIP PASTOR SHIMA SY M.D. [facility] Comment on above: Performed By: #### F CARLA COVID-19 BELLA, SOFIANEG #### [address] Complete Blood Count Auto Di ffon 10-10-2021 Basophils (Bld) [#/Vol] 0.1 10*3/uL Normal 0.0-0.2 [facility] Comment on above: Result Comment: PERF ORMED BY: [place] [address] PATHOLOGIST WORSHIP PASTOR SHIMA SY M.D. Performed By: #### C K, CKMB, CBC, BMP, BNP #### [address] Basophils/100 WBC (Bld) 1.4 % Normal . [facility] Comment on above: Performed By: #### C K, CKMB, CBC, BMP, BNP #### [address] Eosinophils (Bld) [#/Vol] 0.2 10*3/uL Normal 0.0-0.45 [facility] Comment on above: Performed By: #### C K, CKMB, CBC, BMP, BNP #### [address] Eosinophils/100 WBC (Bld) 2.3 % Normal . [facility] Comment on above: Performed By: #### C K, CKMB, CBC, BMP, BNP #### [address] Erythrocyte distribution width (RBC) [Ratio] 13.2 % Normal 11.9-15.3 [facility] Comment on above: Performed By: #### C K, CKMB, CBC, BMP, BNP #### [address] Hematocrit (Bld) [Volume fraction] 41.5 % Normal 34.0-46.4 [facility] Comment on above: Performed By: #### C K, CKMB, CBC, BMP, BNP #### [address] Hemoglobin (Bld) [Mass/Vol] 13.8 g/dL Normal 11.8-15.4 [facility] Comment on above: Performed By: #### C K, CKMB, CBC, BMP, BNP #### [address] [address] [place] Lymphocytes (Bld) [#/Vol] 3.6 10*3/uL Normal 1.00-4.8 [facility] Comment on above: Performed By: #### C K, CKMB, CBC, BMP, BNP #### [address] Lymphocytes/100 WBC (Bld) 39.0 % Normal . [facility] Comment on above: Performed By: #### C K, CKMB, CBC, BMP, BNP #### [address] MCH (RBC) [Entitic mass] 30.7 pg Normal 24.7-34.3 [facility] Comment on above: Performed By: #### C K, CKMB, CBC, BMP, BNP #### [address] MCV (RBC) [Entitic vol] 91.9 fL Normal 80-100 [facility] Comment on above: Performed By: #### C K, CKMB, CBC, BMP, BNP #### [address] Mean Corpuscular HGB Conc 33.4 g/dL Normal 32.0-35.0 [facility] Comment on above: Performed By: #### C K, CKMB, CBC, BMP, BNP #### [address] Monocytes (Bld) [#/Vol] 0.8 10*3/uL Normal 0.0-0.8 [facility] Comment on above: Performed By: #### C K, CKMB, CBC, BMP, BNP #### [address] Monocytes/100 WBC (Bld) 9.0 % Normal . [facility] Comment on above: Performed By: #### C K, CKMB, CBC, BMP, BNP #### [address] Neutrophils (Bld) [#/Vol] 4.4 10*3/uL Normal 1.8-7.7 [facility] Comment on above: Performed By: #### C K, CKMB, CBC, BMP, BNP #### [address] Neutrophils/100 WBC (Bld) 48.3 % Normal . [facility] Comment on above: Performed By: #### C K, CKMB, CBC, BMP, BNP #### [address] Nucleated RBC/100 WBC (Bld) [Ratio] 0.1 % Normal 0-0.5 [facility] Comment on above: Performed By: #### C K, CKMB, CBC, BMP, BNP #### [address] Platelet mean volume (Bld) [Entitic vol] 7.0 fL Normal 6.3-10.7 [facility] Comment on above: Performed By: #### C K, CKMB, CBC, BMP, BNP #### [address] Platelets (Bld) [#/Vol] 237 10*3/uL Normal 150-450 [facility] Comment on above: Performed By: #### C K, CKMB, CBC, BMP, BNP #### [address] RBC (Bld) [#/Vol] 4.51 10*6/uL Normal 3.60-5.00 [facility] Comment on above: Performed By: #### C K, CKMB, CBC, BMP, BNP #### [address] WBC (Bld) [#/Vol] 9.1 10*3/uL Normal 4.5-11.0 [facility] Comment on above: Performed By: #### C K, CKMB, CBC, BMP, BNP #### [address] Creatine Kinaseon 10-10-2021 CK [Catalytic activity/Vol] 69 U/L Normal 22-269 [facility] Comment on above: Performed By: #### C K, CKMB, CBC, BMP, BNP #### [facility] [address] Creatinine Kinase MBon 10-10 CK.MB [Mass/Vol] 3.1 ng/mL Normal 0.6-6.3 [facility] Comment on above: Performed By: #### F CARLA, COVID-19 BELLA, SOFIANEG #### [facility] [address] CKMB Relative Index 4.4 % High 0.00-2.50 [facility] Comment on above: Result Comment: PERF ORMED BY: [place] [address] PATHOLOGIST WORSHIP PASTOR SHIMA SY M.D. Performed By: #### F CARLA, COVID-19 BELLA, SOFIANEG #### [facility] [address] ECG 12 lead ECGon 10-10-2021 ECG 12 lead ECG [facility] [place] [address] [place] [address] Electrocardiograph Report Signed Patient: Мария Roman MR#: [id number] : 1965 Acct:[id number] Age/Sex: 55 / F ADM Date: 10/10/21 Loc: ER Room: Type: [facility] ER Attending Dr: Ordering Provider: [...] Anterior leads Confirmed by ABIMAEL PARKS DO ([id number]), editor city Trent Garay ([id number]) on 10/11/2021 11:15:22 AM Referred By: Electronically Signed By:ABIMAEL PARKS DO Transcribed By: MUS Signed By Abimael Parks DO 1115 [facility] Influenza A and B Antigenon 10-10-2021 [...] samples is recommended. Note 7 PERFORMED BY: [place] [address] PATHOLOGIST WORSHIP PASTOR SHIMA SY M.D. [facility] Comment on above: Performed By: #### Conchis AGUIRRE COVID-19 BELLA, SOFIANEG #### [facility] [address] [place] [address] Bella Ag Negativeon 10-11-19 22 Bella Ag Negative Negative Normal Negative [facility] Comment on above: Result Comment: This is a duplicate Bella SARS Antigen (BLAYNE) result to be used for statistical tracking purpose only. PERFORMED BY: [place] [address] PATHOLOGIST WORSHIP PASTOR SHIMA SY M.D. Performed By: #### Conchis AGUIRRE COVID-19 BELLA, SOFIANEG #### [facility] [address] [place] [address] Troponin I High Sensitivityo n 10-10-2021 Troponin I High Sensitivity 12 pg/mL Normal 0-15 [facility] Comment on above: Result Comment: PERF ORMED BY: [place] [address] PATHOLOGIST WORSHIP PASTOR SHIMA SY M.D. Performed By: #### [facility] #### [place] [id number] [facility] XR chest 1V portableon 10-10 XR chest 1V portable [facility] [place] [address] [place] [address] XRay Report Signed Patient: Мария Roman MR#: [id number] : 1965 Acct:[id number] Age/Sex: 55 / F ADM Date: 10/10/21 Loc: ER Room: Type: [facility] ER Attending Dr: Ordering Provider: Abimael [...] David Walker M.D.10/10/2021 7:52 PM Dictation Location: [place] [address] Transcribed By: [facility] 10/10/211951 Dictated By: David Walker II, MD 10/10/211949 Signed By: 10/10/211951 [facility] XR ANKLE LEFT 3+ VIEWS [...] bodies. IMPRESSION: No obvious fractures or dislocations. [facility] Workstation ID: [id number] Dictated by: LOULOU TREVINO on FriJul 29, 2021 8:55:54 PM EST Transcribed by: DARYA SCHILLING on FriJul 29, 2021 8:57:24 PM EST Finalized by: LOULOU TREVINO on FriJul 29, 2021 10:03:27 PM EST Normal [facility] Comment on above: Order Comment: Injur y/Trauma or Illness?:Injury/Trauma How long have you had these symptoms (acute/chronic)?:Acute Reason for exam?:pain History of cancer?:u Surgeries, chemotherapy, or radiation?:u Type of Exam?:Initial Mechanism of injury?:fall Vital Signs Date Time Vital Sign Value Performing Clinician Faci lity 03-17-2024 16:24-0400 Body height 168.91 cm MD Chinmay Manning Work Phone: [facility] 03-17-2024 16:24-0400 Body mass index (BMI) [Ratio] 31.8 kg/m2 MD Chinmay Manning Work Phone: [facility] 03-17-2024 16:24-0400 Body temperature 97.8 [degF] MD Chinmay Manning Work Phone: [facility] 03-17-2024 16:24-0400 Body weight 90.88 kg MD Chinmay Manning Work Phone: [facility] 03-17-2024 16:24-0400 Diastolic blood pressure 81 mm[Hg] MD Chinmay Manning Work Phone: [facility] 03-17-2024 16:24-0400 Heart rate 97 /min MD Chinmay Manning Work Phone: [facility] 03-17-2024 16:24-0400 Respiratory rate 18 /min MD Chinmay Manning Work Phone: [facility] 03-17-2024 16:24-0400 SaO2% (BldA) [Mass fraction] 94 % MD Chinmay Manning Work Phone: [facility] 03-17-2024 16:24-0400 Systolic blood pressure 129 mm[Hg] MD Chinmay Manning Work Phone: [facility] 12-09-2023 15:25-0400 Body height 168.91 cm MD Chinmay Manning Work Phone: [facility] 12-09-2023 15:25-0400 Body mass index (BMI) [Ratio] 32.3 kg/m2 MD Chinmay Manning Work Phone: [facility] 12-09-2023 15:25-0400 Body temperature 97.3 [degF] MD Chinmay Manning Work Phone: [facility] 12-09-2023 15:25-0400 Body weight 92.24 kg MD Chinmay Manning Work Phone: [facility] 12-09-2023 15:25-0400 Diastolic blood pressure 72 mm[Hg] MD Chinmay Manning Work Phone: [facility] 12-09-2023 15:25-0400 Heart rate 113 /min MD Chinmay Manning Work Phone: [facility] 12-09-2023 15:25-0400 Respiratory rate 16 /min MD Chinmay Manning Work Phone: [facility] 12-09-2023 15:25-0400 SaO2% (BldA) [Mass fraction] 96 % MD Chinmay Manning Work Phone: [facility] 12-09-2023 15:25-0400 Systolic blood pressure 112 mm[Hg] MD Chinmay Manning Work Phone: [facility] 01-17-2022 16:30-0400 Body height 168.91 cm Bahman Butlerormack Other [employer] Other 01-17-2022 16:30-0400 Body mass index (BMI) [Ratio] 21.62 kg/m2 Bahman [employer] Other [employer] Other 01-17-2022 16:30-0400 Body weight 61.69 kg Bahman [employer] Other [employer] Other 10-16-2021 16:45-0400 Body height 168.91 cm Bahman [employer] Other [employer] Other 10-16-2021 16:45-0400 Body mass index (BMI) [Ratio] 20.98 kg/m2 Bahman [employer] Other [employer] Other 10-16-2021 16:45-0400 Body weight 59.88 kg Bahman [employer] Other [employer] Other 07-12-2021 11:05-0500 Body height 168.91 cm Christiana Ginty Other [employer] Other 07-12-2021 11:05-0500 Body temperature 97.5 [degF] Christiana Ginty Other [employer] Other 07-12-2021 11:05-0500 Diastolic blood pressure 106 mm[Hg] Hcristiana Ginty Other [employer] Other 07-12-2021 11:05-0500 Respiratory rate 18 /min Christiana Ginty Other [employer] Other 07-12-2021 11:05-0500 SaO2% (BldA) [Mass fraction] 98 % Christiana Ginty Other [employer] Other 07-12-2021 11:05-0500 Systolic blood pressure 153 mm[Hg] Christiana Ginty Other [employer] Other 07-04-2021 12:00-0500 Body height 168.91 cm [employer] Other [employer] Other 07-04-2021 12:00-0500 Body mass index (BMI) [Ratio] 17.88 kg/m2 [employer] Other [employer] Other 07-04-2021 12:00-0500 Body weight 51.03 kg [employer] Other [employer] Other Encounters Encounter Date Encounter Type Care Provider Facility Start: 03-24-2024 End: 03-24-2024 ambulatory ROSITA BRUCE Not Available Start: 03-17-2024 End: 03-17-2024 ambulatory MD Chinmay Manning Work Phone: [facility] Work Phone: Start: 03-17-2024 End: 03-17-2024 Patient encounter procedure MD Chinmay Manning Work Phone: [facility] [place] Work Phone: Start: 02-21-2024 Non-patient / Non-visit MD Chinmay Manning Work Phone: [facility] Work Phone: Start: 02-12-2024 End: 02-12-2024 ambulatory SHAIKH FRANCKD Not Available Start: 12-26-2023 Registered Recurring MD Jeff Manning Work Phone: [facility] [employer] Start: 12-09-2023 End: 12-09-2023 ambulatory MD Chinmay Manning Work Phone: [facility] Work Phone: Start: 12-09-2023 End: 12-09-2023 Patient encounter procedure MD Chinmay Manning Work Phone: [facility] Work Phone: Start: 11-17-2023 End: 11-17-2023 ambulatory SHAIKH CECILIO Not Available Start: 09-25-2023 Registered Recurring MD Jeff Manning Work Phone: [facility] [employer] Start: 08-22-2023 End: 08-22-2023 ambulatory Jorge Luis Barajas Other [facility] [employer] Other Start: 08-22-2023 Clinisync Result Encounter Shaikh Cecilio WALKER Work Phone: [facility] Unsolicited Start: 08-22-2023 Clinisync Result Encounter Shaikh Cecilio WALKER Work Phone: [facility] Unsolicited Start: 08-22-2023 Telephone encounter Jorge Luis Barajas [facility] Start: 08-18-2023 End: 08-18-2023 ambulatory MARIE FAWWAD Not Available Start: 06-16-2023 End: 06-16-2023 ambulatory SHAIKH FRANCKD Not Available Start: 07-02-2022 End: 07-03-2022 ambulatory BECCA THOMAS Facility:[facility] Start: 06-07-2022 End: 06-08-2022 ambulatory ETHAN COATS Facility: Start: 01-28-2022 End: 01-28-2022 ambulatory Bahman Meneses Other [employer] Other Start: 01-28-2022 Telephone encounter Bahman Baudiliojoy vasquez [facility] Start: 01-17-2022 End: 01-17-2022 ambulatory Bahman Meneses Other [employer] Other Start: 01-17-2022 Office outpatient visit 15 minutes Bahman Meneses [facility] Start: 11-09-2021 End: 11-09-2021 ambulatory Bahman Zaira Other [employer] Other Start: 11-09-2021 Telephone encounter Bahman Baudiliojoy vasquez [facility] Start: 10-16-2021 End: 10-16-2021 ambulatory Bahman Meneses Other [employer] Other Start: 10-16-2021 Office outpatient visit 15 minutes Bahman Butlerormack [facility] Start: 10-10-2021 End: 10-11-2021 Emergency department patient visit Ethan Coats Facility:[facility] Start: 07-28-2021 End: 08-04-2021 [facility] Start: 07-12-2021 End: 07-12-2021 ambulatory Christiana Ginty Other [employer] Other Start: 07-12-2021 Office outpatient visit 15 minutes Christiana Ginty [facility] Start: 07-04-2021 End: 07-04-2021 ambulatory Justin Che II Other [employer] Other Start: 07-04-2021 Office outpatient new 30 minutes Justin Eleanor II [facility] Procedures Date Procedure Procedure Detail Performing Clinician Start: 08-22-2023 ALL BUN Shaikh Jose hernandez MD Work Phone: Start: 08-22-2023 [facility] CREATININE Shaikh Conchis pinto MD Work Phone: Plan of Treatment Date Care Activity Detail Author Start: 11-17-2023 End: 11-17-2023 Patient encounter procedure 11/17/2023 5:00 PM EDT Office Visit [facility] [address] [place] [address] Shaikh Hernandes MD [address] [place] [address] [facility] Start: 09-12-2023 Screening for malign ant neoplasm of breast Mammogram [facility] Comment on above: Postponed from 12/07 (Insurance / Financial) Start: 03-14-2023 Influenza vaccination Influenz a Vaccine (#1) [facility] Start: 12-07-1993 Screening for malign ant neoplasm of cervix [facility] Start: 12-07-1984 Screening for malign ant neoplasm of cervix Pap Smear [facility] Start: 1965 Medicare Annual Well ness (AWV) Medicare Annual Wellness (AWV) [facility] Start: 1965 Screening for malign ant neoplasm of colon [facility] Renal function 1999 panel - Serum or Plasma [facility] Renal function 1999 panel - Serum or Plasma [facility] Immunizations Immunization Date Immunization Notes Care Provider [facility] 07-12-2021 tetanus and diphther ia toxoids, adsorbed, preservative free, for adult use (5 Lf of tetanus toxoid and 2 Lf of diphtheria toxoid) Christiana Lazaro Other [employer] Other Payers Date Payer Category Payer Unknown [employer] M [employer] [id number] 2023-Present [address] [place] [address] [id number] 2023 Unknown [id number] 2022 Medicare WELLCARE MEDICAR E WELLCARE BY VIKTORIA [id number] 2022-Present [address] [place] [address] [id number] 2022 Unknown [id number] 2021 Unknown [id number] 1965 Unknown [id number] 1965 Unknown [id number] 1965 Unknown [id number] 1965 Unknown [id number] 1963 Unknown [id number] 1965 Unknown [id number] 1963 Unknown [id number] 1963 Unknown [id number] 1959 Unknown [id number] Medicare [id number] Self-pay Self Pay [id number] Social History Date Type Detail Facility Unknown if ever smoked [facility] [employer] Other Start: 02-05-2024 Sex Assigned At N [employer] Other Start: 06-16-2023 [facility] [...] [facility] Start: 12-09-[address] [facility] Smoker (finding) [facility] Start: 1965 Sex Assigned At Female F [facility] Medical Equipment Procedure Code Equipment Code Equipment Origin al Text Equipment Identifier Dates Capsule endoscopy, for patency of lumen evaluation Video capsule endoscopy system [id number] FDA Start: 08-16-2019 Clinical Notes 04-08-2014 to 01-28-2022 Note Date & Type Note Facility 01-28-2022 Evaluation note Encounter Date Diagnosis Assessment Notes Jan, GERD (gastroesop hageal reflux disease) (ICD-10 - K21.9) [employer] Other 07-07-2022 Evaluation note* Encounter Date Diagnosis Assessment Notes Treatment Notes Treatment Clinical Notes Jan, Diarrhea (ICD-10 - R19.7) Continue Dicyclomine Jan, GERD (gastroesophageal reflux disease) (ICD-10 - K21.9) Continue Omeprazole without change [employer] Other 04-29-2022 Evaluation note* Encounter Date Diagnosis Assessment Notes Treatment Notes Treatment Clinical Notes Oct, GERD (gastroesophageal reflux disease) (ICD-10 - K21.9) [employer] Other 04-05-2022 Evaluation note* Encounter Date Diagnosis Assessment Notes Treatment Notes Treatment Clinical Notes Oct, Diarrhea, unspecified (ICD-10 - R19.7) CONTINUE DICYCLOMINE DIRECTED RTO 3 MONTHS Oct, GERD (gastroesophageal reflux disease) (ICD-10 - K21.9) STOP CARAFATE [employer] Other 12-30-2021 Evaluation note* Encounter Date Diagnosis Assessment Notes Treatment Notes Treatment Clinical Notes Jun, Laceration of left middle finger [...] nonstick telfa -After 48 hours may keep WILIAM unless risk of getting dirty or irritated [...] With Stitches: Care Instructions material was printed [employer] Other 12-22-2021 Evaluation note* Encounter Date Diagnosis Assessment Notes Treatment Notes Treatment Clinical Notes Jun, Sprain of other ligament of left ankle, initial encounter (ICD-10 - S93.492A) Jun, Other I had a long discussion with the patient regarding the etiology of her left ankle pain. I feel that she has a mild ankle sprain. I educated her on rest, ice, compression, elevation therapy. Recommended that she continue with [id number] oral anti-inflammatories . Informed her that she can weight-bear as tolerated. Discussed some exercises with her for ankle sprain rehabilitation. I did recommend that we get her [...] 4 weeks to check on her progress. [employer] Other 09-26-2014 History general Narrative - Reported* Type Description Date Medical History 04-08-14 EGD with biopsy, colonos [...] Hospitalization History [facility] [place] [facility] [employer] Other 09-26-2014 History general Narrative - Reported* Type Description Date Medical History 04-08-14 EGD with biopsy, colonos [...] Hospitalization History [facility] [place] [facility] [employer] Other Evaluation noteNo [employer] Other Evaluation note* Diagnosis Onset Date Resolution Status Chronic kidney disease, stage 3b acute Hypertensive nephropathy acu te Lesion of left [place] kidney acute [facility] Work Phone: Evaluation note* Diagnosis Onset Date Resolution Status Chronic kidney disease, stage 3b acute Hypertensive nephropathy acu te Hypomagnesemia acute Lesion of left [place] kidney acute [facility] Work Phone: Summary Purpose Family History No Family History Records Found Relationship Condition Age at Onset Recorded Date/T manuel Not Specified Hypertension Unknown Congestive heart failure Unknown Heart disease Unknown brother Heart disease Unknown sister Heart disease Unknown brother Diabetes mellitus Unknown father Unknown Motor vehicle accident Unknown family member Unknown Not Specified Heart disease Unknown Unknown Hypertension Unknown sister Unknown Relationship Condition Age at Onset Recorded Date/T manuel mother Hypertension Unknown Congestive heart failure Unknown Heart disease Unknown brother Heart disease Unknown sister Heart disease Unknown brother Diabetes mellitus Unknown father Unknown Motor vehicle accident Unknown family member Unknown mother Heart disease Unknown Unknown Hypertension Unknown sister Unknown Advance Directives No Advanced Directives Records Found Advance Directive Response Recorded Date/ Time Advance Directives No May 9:58am Chief Complaint and Reason for Visit Chief Complaint BH CKD 3 Reason for Visit Chronic kidney disea se, stage 3b Hypertensive nephropathy Lesion of left [place] kidney Chief Complaint BH RENAL 3 MONTH F/U Reason for Visit Chronic kidney disea se, stage 3b Hypertensive nephropathy Hypomagnesemia Lesion of left [place] kidney Additional Source Comments INFORMATION SOURCE (unrecogn ized section and content) DATE CREATED AUTHOR 08/08/2021 [facility] DATE CREATED AUTHOR AUTHOR'S ORGANIZ ATION 08/17/2022 [facility] DATE CREATED AUTHOR AUTHOR'S ORGANIZ ATION 11/27/2022 [facility] DATE CREATED AUTHOR AUTHOR'S ORGANIZ ATION 03/26/2024 [facility] dical Specialists EPIC REASON FOR VISIT (unrecogniz ed section and content) Left Ankle PainFINGER LACERA TIONPATIENT HERE FOR ANNUAL VISIT FOR DIARRHEA. PATIENT WAS TO START ALOSETRON. PT IS NOT TAKING THE ALOESTRONmedicationPATIENT HERE FOR 3 MONTH FOLLOW UP TO DIARRHEA AND GERD. PATIENT WAS TO CONTINUE ON THE DICYCLOMINE, OMEPRAZOLE AND STOP THE CARAFATE.RefillsREFERRAL Care Teams (unrecognized sec tion and content) Coater Relationship Specialty Start Date End Date Shaikh Hernandes MD [address] [place] [id number] PCP - General Internal Medicine 08/11/23 Margarette Estevez NP [address] [place] [address] Nurse Practitioner Family Medicine 05/26/23 Team Status: Active Member Role Status Dates Ethan Coats DO Primary Care Provider Active Team Status: Active Member Role Status Olamide Manning MD Attending Provider Active Start: September 25, 2023 Team Status: Inactive Member Role Status Olamide Dominguez MD Attending Provider Active Star t: December 09, 2023 End: December 09, 2023 Ethan Coats DO Primary Care Provider Active Start: December 09, 2023 End: December 09, 2023 Team Status: Active Member Role Status Olamide Manning MD Attending Provider Active Start: December 26, 2023 Team Status: Active Member Role Status Olamide Coats DO Primary Care Provider Active Start: February 21, 2024 Debby Dominguez MD Attending Provider Active Star t: February 21, 2024 Team Status: Inactive Member Role Status Olamide Coats DO Primary Care Provider Active Start: March 17, 2024 End: March 17, 2024 Debby Dominguez MD Attending Provider Active Star t: March 17, 2024 End: March 17, 2024 Goals (unrecognized section and content) Goals may [...] BE BASED ON THE PRIMARY CLINICAL RECORDS. [employer] [facility]. provides no warranty or guarantee of the accuracy or completeness of information in this document.
[2024-05-05 13:09] LABS: Age Gdln ACOG Testing Note (.); HPV Aptima Negative (Negative); IGP, Aptima HPV, rfx 16/18,45 Note (.)
== END 2024-04-28 19:34 | disposition home or self-care (01) ==
LOC: LAB 19:33
PROVIDERS: Visit Provider Physician Assistant
DX: Z01.419 Encounter for gynecological examination (general) (routine) without abnormal findings (principal)
CPT/HCPCS: 87624; 88175

== ENCOUNTER 2024-05-14 10:44 | Outpatient (OUT) | payer BC, OTHER, SELFPAY ==
--- NOTE | 2024-05-14 10:48 | XR_ITS ---
The [address] [address] Patient Name: ANIYAH LAY MRN: [facility]:[id number] date: 1965 Sex: F Assigned Patient Location: [facility] Current Patient Location: Accession/Order Number: [id number] Exam Date: 05/14/2024 11:10 Report Date: 05/15/2024 06:10 At the request of: TEN NAJERA Procedure: XR DEXA axial skeleton EXAMINATION: XR DEXA axial skeleton HISTORY: Postmenopausal State COMPARISON: No relevant comparison available. TECHNIQUE: Dual-energy X-ray absorptiometry (DXA) was performed. FINDINGS: SPINE ANALYSIS: Average bone mineral density is 1.205 g/cm2. T-score (standard deviation relative to young adult mean): 0.2 . HIP ANALYSIS: Lowest bone mineral density is within the left femoral neck, 0.822 g/cm2. T-score (standard deviation relative to young adult mean): -1.6 . XR/XR DEXA axial skeleton IMPRESSION: World Health Organization Classification: Osteopenia - Moderate Fracture Risk FRAX: Cannot be calculated. Pharmacologic treatment recommendations * No uniform recommendation applies to all patients. Management plans must be individualized. * Consider initiating pharmacologic treatment in postmenopausal women and men >= 50 years of age who have the following: Primary fracture prevention: * T-score <= - 2.5 at the femoral neck, total hip, lumbar spine, 33% radius (some uncertainty with existing data) by DXA. * Low bone mass (osteopenia: T-score between - 1.0 and - 2.5) at the femoral neck or total hip by DXA with a 10-year hip fracture risk >= 3% or a 10-year major osteoporosis-related fracture risk >= 20% (i.e., clinical vertebral, hip, forearm, or proximal humerus) based on the US-adapted FRAXregistered model. Secondary fracture prevention: * Fracture of the hip or vertebra regardless of BMD [4, 5]. * Fracture of proximal humerus, pelvis, or distal forearm in persons with low bone mass (osteopenia: T-score between - 1.0 and - 2.5). The decision to treat should be individualized in persons with a fracture of the proximal humerus, pelvis, or distal forearm who do not have osteopenia or low BMD [12, 13]. Bi MS, Mell SL, Chung KL, Eduard EM, Leia KG, AJ, Reva ES. The clinician's guide to prevention and treatment of osteoporosis. Osteoporos Int. 2021;33(10):5370-9679. doi: 10.1007/t03840-805-95108-l. Epub 2021Nov 08. Erratum in: Osteoporos Int. 2021Feb 07;: PMID: [id number]; PMCID: [id number]. Electronically authenticated by: JAY HUFF Date: 05/15/2024 06:10
--- NOTE | 2024-05-14 10:49 | MM_ITS ---
Patient Name: ANIYAH LAY MR#: [id number] : 1965 Exam Date: 05/14/2024 Ordering Doctor: SHENA Zapien . RADIOLOGY REPORT PROCEDURE: MM TOMOSYNTHESIS SCREENING BI COMPARISON: MG MAMM LT DIAG FU, 05/04/2019. MG MAMM SCREEN ELEANOR W CAD, 04/13/2019. INDICATIONS: Screening Calculator Name NCI Breast Cancer Risk Assessment Tool 5 Year Breast Cancer Risk 1.00% Lifetime Breast Cancer Risk 5.30% Personal Breast Cancer No Personal Ovarian Cancer No Treatments None Family Cancers Aunt-maternal with breast cancer at age 39; Aunt-paternal with breast cancer at age 50; Mother with uterine cancer at age 29. LOCATION: [facility] BREAST COMPOSITION: The breasts are heterogeneously dense,which may obscure small masses. FINDINGS: DIAGNOSTIC CATEGORY 2--BENIGN FINDING. NO CHANGE FROM COMPARISON. Scattered benign-appearing nodules are present. Scattered benign-appearing calcifications are present. Scattered benign-appearing lymph nodes are present. RIGHT BREAST: No significant suspicious finding. LEFT BREAST: No significant suspicious finding. RECOMMENDATIONS: ROUTINE MAMMOGRAM AND CLINICAL EVALUATION IN 12 MONTHS. PLEASE NOTE: A NORMAL MAMMOGRAM DOES NOT EXCLUDE THE POSSIBILITY OF BREAST CANCER. A CLINICALLY SUSPICIOUS PALPABLE LUMP SHOULD BE BIOPSIED. Dictated by: Rogelio Jesus MD on 05/14/2024 at 13:31 Approved by: Rogelio Jesus MD on 05/14/2024 at 13:32
--- OUTSIDE RECORDS SUMMARY | 2024-05-14 10:49 | XMS_ITS | CCD ---
Author Organization [facility] Care Team Providers Care Sampler Ovens Name Role Phone ELIANE BEEBE Admitting Unavailable ELIANE BEEBE Attending Unavailable SANDRA LIZARRAGA Consulting Unavailable Justin Che II Unavailable [phone] Christiana Lazaro Unavailable Bahman Meneses Unavailable [phone] Ethan Coats Primary Care Unavailable Abimael Parks Attending Unavailable Abimael Parks Admitting Unavailable JORGE L, DR ROONEY Admitting Unavailable JORGE L, DR ROONEY Primary Care Unavailable JORGE L, DR ROONEY Consulting Unavailable HOUSE, DR ROONEY Attending Unavailable DARIA, DR JAY Osuna Consulting Unavailable BECCA THOMAS Admitting Unavailable BECCA THOMAS Consulting Unavailable BECCA THOMAS Attending Unavailable JORGE L, DR ROONEY Primary Care Unavailable Herb KENO CLERK, Margarette Unavailable Shaikh Hernandes MD Primary Care Provider Jorge Luis Barajas Unavailable MD Chinmay Manning Attending Provider MD Chinmay Manning Attending Provider Herb KENO CLERK, Margarette Unavailable Shaikh Hernandes MD Primary Care Provider SHAIKH HERNANDES Attending Unavailable SHAIKH HERNANDES Attending Unavailable SHAIKH HERNANDES Attending Unavailable SHAIKH HERNANDES Attending Unavailable URSULA GARZA Attending UnavailDANYA Culver Attending Unavailable Allergies Allergy Classification Reported Allergen(s) Allergy Type Date of Onset Reaction(s) Facility Anti-Epileptic Agents (1 source) gabapentin Drug Allergy 01-18-20 22 [facility] Dihydrofolate Reductase Inhibitors (antibiotic) (1 source) Trimethoprim Drug Allergy 10-11-19 22 [facility] Opioid Agonists (2 sources) HYDROmorphone Drug Allergy 10-11-19 22 sick, [facility] peanut allergenic extract (1 source) peanut allergenic extract Drug Allergy 10-11-19 22 Rash [facility] Pollen (1 source) Bee pollen Substance Allergy 10-11-19 22 Anaphylaxis [facility] pregabalin (1 source) pregabalin Drug Allergy 01-18-20 22 Unknown Reaction [facility] Promethazine (1 source) Promethazine Drug Allergy 10-11-19 22 Rash [facility] Quinolones (antibiotic) (1 source) Ciprofloxacin Drug Allergy 01-18-20 22 itching, nausea [facility] Sulfonamides (antibiotic) (1 source) Sulfamethoxazole Drug Allergy 10-11-19 [facility] Unclassified (1 source) codeine, depakote, bactrium, s Allergy to substance 01-18-20 22 [facility] Unclassified (2 sources) walnuts Allergy to substance 07-03-20 21 Anaphylaxis [facility] Valproate (1 source) Valproate Drug Allergy 10-11-19 22 itching, nausea [facility] (1 source) tree nut, unspecified; Translations: [TREE NUTS] Propensity to adverse reactions to drug (disorder) 07-28-19 22 [facility] Repository (1 source) BEE VENOM PROTEIN (HONEY BEE); Translations: [BEE VENOM PROTEIN (HONEY BEE)] Propensity to adverse reactions to drug (disorder) 11-30-19 15 [facility] Repository (13 sources) Ciprofloxacin Drug Allergy 09-24-19 18 [facility] Other (8 sources) gabapentin Drug Allergy 03-17-20 24 Unknown, Unknown Reaction [facility] (13 sources) HYDROmorphone Drug Allergy 06-13-20 23 Unknown, sick [facility] Other (8 sources) pregabalin Drug Allergy 03-17-20 24 Unknown, Unknown Reaction [facility] (7 sources) codeine, depakote, bactrium, sulfa, bees walnuts Propensity to adverse reactions Unknown [employer] Other (1 source) Acetaminophen / HYDROcodone Drug Allergy 11-03-19 15 [facility] Repository (1 source) bee venom Drug allergy (disorder) 11-30-19 15 [facility] Repository (2 sources) Codeine Drug Allergy 11-03-19 15 Hives [facility] Repository (1 source) HYDROmorphone Drug Allergy 11-30-19 15 [facility] Repository (1 source) Sulfamethoxazole / Trimethoprim Drug Allergy 11-03-19 15 [facility] Repository (1 source) Valproate Drug Allergy 11-03-19 15 [facility] Repository (1 source) Misc-Food; Translations: [Misc-Food] Food allergy (disorder) 11-03-19 15 [facility] Repository (5 sources) Acetaminophen / HYDROcodone Drug Allergy 06-13-20 23 [facility] Healthcare (6 sources) Bee pollen Propensity to adverse reactions 06-13-20 23 Anaphylaxis [facility] (5 sources) Codeine Drug Allergy 06-13-20 23 [facility] (5 sources) Erythromycin Drug Allergy 06-13-20 23 [facility] Healthcare (5 sources) Honey bee venom Propensity to adverse reactions 11-30-19 15 [facility] Work Phone: (5 sources) Pregabalin Propensity to adverse reactions 06-13-20 [facility] Healthcare (6 sources) Promethazine Drug Allergy 06-13-20 23 Rash [facility] Healthcare (6 sources) Sulfamethoxazole Allergy to substance 06-17-20 17 Hives [facility] Healthcare (5 sources) Sulfamethoxazole / Trimethoprim Drug Allergy 06-13-20 23 [facility] Healthcare (5 sources) Valproate Drug Allergy 06-13-20 23 [facility] Healthcare (5 sources) Black [place] Flavor Propensity to adverse reactions 06-13-20 [facility] Healthcare (5 sources) Other Propensity to adverse reactions 07-28-19 22 Hives, Shortness of breath, Swelling [facility] (1 source) peanut allergenic extract Drug Allergy 03-17-20 24 [facility] (1 source) Trimethoprim Drug Allergy 03-17-20 24 [facility] (1 source) Valproate Drug Allergy 03-17-20 itching, nausea [facility] Medications Current Medications Medication Drug Class(es) Dates [...] Active cyclobenzaprine hydrochloride 10 mg oral tablet (7 sources) Muscle Relaxant Start: 03-24-2024 take 0.5 tablet by mouth at bedtime cyclobenzaprine (Flexeril) 10 MG tablet Take 0.5 tablets (5 mg) by mouth at bedtime 30 tablet 1 03/24/2024 Active Start: 12-09-2023 take 10 mg by mouth [...] Elderberry preparation (3 sources) Elderberry Activ e [id number] 0.3 ml EPINEPHrine 1 mg/ml auto-injector (7 sources) alpha-Adrenergic Agonist, beta-Adrenergic Agonist, Catecholamine Start: 12-09-2023 Epinephrine Active 0.3 ML IM December 09, 2023 12:00am Start: 11-17-2023 EPINEPHrine (E pipen) 0.3 MG/0.3ML injection syringe Indications: Allergic reaction to bee sting Inject 0.3 mL (0.3 mg) as directed 1 (one) time for 1 dose use as directed for allergic reaction and then call 911 2 each 11/17/2023 Active EPINEPHrine (EPI PEN IJ) Inject as directed. 0 Active EPINEPHrine 0.3 MG/0.3ML as directed Injection Active estradiol 1 mg oral tablet (9 sources) Estrogen Start: 12-09-2023 End: 04-28-2025 take 1 tablet by mouth once daily estradiol (Estrace) 1 MG tablet Indications: Hormone imbalance Take 1 tablet (1 mg) by mouth Daily 30 tablet 11 04/28/2024 04/28/2025 Active losartan potassium 100 mg oral tablet (7 sources) Angiotensin 2 Receptor [place] Start: 08-11-2023 End: 07-17-2024 take 1 tablet by mouth once daily losartan (Cozaar) 100 MG tablet Indications: Primary hypertension (CMS/HCC) Take 1 tablet (100 mg) by mouth Daily 90 tablet 1 01/19/2024 07/17/2024 Active Magnesium (3 sources) Magnesium Active magnesium oxide 400 mg oral tablet (5 sources) Start: 03-17-2024 take 1 tablet by mouth once daily magnesium oxide (Mag-Ox) 400 (240 Mg) MG tablet Take 400 mg by mouth Daily 03/17/2024 Active Multi For Her 50+ (3 sources) Multi For Her 50 + Active mupirocin 0.02 mg/mg topical ointment (1 source) RNA Synthetase Inhibitor Antibacterial Start: 07-12-2021 Mupirocin 2 % 1 application Externally Twice a day for 5 day(s) Jun, Active nicotine 4 mg oral lozenge (11 sources) Cholinergic Nicotinic Agonist Start: 03-24-2024 nicotine polacrilex ([facility] Nicotine Polacrilex) 4 MG lozenge Indications: Tobacco dependency Dissolve 1 lozenge (4 mg) in the mouth every 2 (two) hours if needed for smoking cessation 100 lozenge 03/24/2024 Active Start: 03-17-2024 Nicotine Activ e TRANSDERML March 17, 2024 12:00am Start: 02-12-2024 apply 1 dose transde rmal route every twenty-four hours nicotine (Nicoderm CQ) 14 MG/24HR patch Indications: Tobacco dependency Place 1 patch over 24 hours on the skin 1 (one) time each day at the same time Use after patient has used 21 mg dose. 30 patch 02/12/2024 Active Start: 02-12-2024 apply 1 dose transde rmal route every twenty-four hours nicotine (Nicoderm CQ) 21 MG/24HR patch Indications: Tobacco dependency Place 1 patch over 24 hours on the skin 1 (one) time each day at the same time 30 patch 02/12/2024 Active omeprazole 20 mg delayed release oral capsule (12 sources) Proton Pump Inhibitor Start: 10-16-2021 take 20 mg by mouth once daily Omeprazole Active 20 MG PO Daily December 09, 2023 12:00am 24 hr paliperidone 3 mg extended release oral tablet (12 sources) Atypical Antipsychotic Start: 12-09-2023 take 3 mg by mouth once daily in the morning Paliperidone Active 3 MG PO Every morning December 09, 2023 12:00am take 1 tablet by benedicto th every twenty-four hours in the morning paliperidone (Invega) 3 MG 24 hr tablet Take 3 mg by mouth in the morning. Do not crush, chew, or split. . Active take 1 tablet by benedicto th [...] Jun, Active topiramate 100 mg oral tablet (15 sources) Start: 01-19-2024 take 1 tablet by mouth in the morning topiramate (Topamax) 100 MG tablet Indications: Bipolar 2 disorder (CMS/HCC) , Migraine without aura and without status migrainosus, not intractable (CMS/HCC) Take 1 tablet (100 mg) by mouth in the morning and 1 tablet (100 mg) before bedtime. 180 tablet 01/19/2024 Active Start: 09-23-2017 End: 12-09-2023 take 1 tablet by mouth once daily Topiramate (Topamax) 100 mg tablet Active 100 MG PO Daily December 09, 2023 12:00am Topamax Active take 1 capsule by mo uth three times daily Topiramate 100 MG 1 capsule Oral TID for 30 Active traZODone hydrochloride 100 mg oral tablet (14 sources) Serotonin Reuptake Inhibitor Start: 12-09-2023 take 200 mg by mouth once daily at bedtime Trazodone Active 200 MG PO Daily at bedtime December 09, 2023 12:00am Start: 09-23-2017 End: 12-09-2023 take 50 mg by mouth at bedtime Trazodone Discontinued 50 MG PO Bedtime September 23, 2017 12:00am December 09, 2023 3:28pm take 2 tablets by mo ut at bedtime traZODone (Desyrel) 100 MG tablet Take 200 mg by mouth at bedtime. Active take 1-2 tablets by mouth once daily [...] 2020 1:00am December 09, 2023 3:31pm Citalopram [place] bromide Active dicyclomine hydrochloride 10 mg oral [...] s ONCE A MONTH Active estrogens, conjugated (senior living) 0.625 mg oral tablet (11 sources) Estrogen [...] quadrant pain] Episodic Anal and rectal conditions (7 sources) Rectal pain; Translations: [Other specified diseases of anus and rectum] Episodic Anxiety disorders (7 sources) Anxiety; Translations: [Anxiety disorder, unspecified] Onset: 2 08-18-2023 Chronic Asthma (2 sources) Asthma; Translations: [Unspecified asthma, uncomplicated] 10-10-2021 Chronic Chronic kidney disease (16 sources) Chronic kidney disease stage 2; Translations: [Chronic kidney disease, stage 2 (mild)] Onset: 3 06-16-2023 Chronic E Codes: Fall (2 sources) Fall (on) (from) other stairs and steps, initial encounter; Translations: [Fall down stairs] 07-03-2021 Episodic Esophageal disorders (11 sources) Gastroesophageal reflux disease; Translations: [Gastro-esophageal reflux disease without esophagitis] Onset: 2 Resolved: 2 Chronic Essential hypertension (5 sources) Essential hypertension; Translations: [Essential (primary) hypertension] Onset: 3 06-16-2023 Chronic Gastritis and duodenitis (7 sources) Gastritis; Translations: [Gastritis, unspecified, without bleeding] Episodic Gastrointestinal hemorrhage (20 sources) Dark stools; Translations: [Melena] 07-26-2020 Episodic Headache; including migraine (5 sources) Migraine without aura, not refractory ; Translations: [...] (14 sources) Fatigue; Translations: [Other fatigue] Episodic Mood disorders (4 sources) Bipolar II disorder; Translations: [Bipolar II disorder] Onset: 4 11-17-2023 Chronic Nausea and vomiting (14 sources) Vomiting; Translations: [...] of kidney and ureter] 12-09-2023 Episodic Other endocrine disorders (2 sources) Disorder of endocrine system; Translations: [Endocrine disorder, unspecified] 04-28-2024 Episodic Other gastrointestinal disorders (7 sources) Irritable [...] Chronic Other nutritional; endocrine; and metabolic disorders (4 sources) Obesity caused by energy imbalance; Translations: [Class 1 obesity due to excess calories without serious comorbidity with body mass index (BMI) of 33.0 to 33.9 in adult] Onset: 4 02-12-2024 Chronic Other nutritional; endocrine; and metabolic disorders (7 sources) Weight loss; Translations: [Abnormal weight loss] Episodic Other screening for suspected conditions (not mental disorders or infectious disease) (15 sources) Ultrasonography of kidney abnormal; Translations: [Abnormal radiologic findings on diagnostic imaging of unspecified kidney] Onset: 4 08-18-2023 Episodic Other skin disorders (7 sources) Rash and other nonspecific skin eruption; Translations: [Rash] Episodic Regional enteritis and ulcerative colitis (7 sources) Pseudopolyposis of colon; Translations: [Inflammatory polyps of colon without complications] Chronic Residual codes; unclassified (2 sources) Postmenopausal state; Translations: [Asymptomatic menopausal state] 04-28-2024 Episodic Sprains and strains (3 sources) Sprain of other ligament of left ankle, initial encounter; Translations: [Sprain of left ankle] Onset: 1 Resolved: Episodic Substance-related disorders (5 sources) Tobacco dependence syndrome; Translations: [Nicotine dependence, unspecified, uncomplicated] Onset: 3 06-16-2023 Chronic Superficial injury; contusion (4 sources) Contusion of lower back; Translations: [Contusion of lower back and pelvis, initial encounter] 07-03-2021 Episodic Unclassified (3 sources) LOW BACK PAIN, UNSPECIFIED; Translations: [LOW BACK PAIN, UNSPECIFIED] Onset: 2 Past or Other Problems Problem Classification Problem Date Documented Da te Episodic/Chronic Allergic reactions (5 sources) Allergy to nut; Translations: [Allergy to other foods] Onset: 08-18-2023 08-18-2023 Episodic Open wounds of extremities (1 source) Laceration [...] Test Name Value Interpretation Reference Range Facility IGP,APTIMA HPV,AGE GDLNon AGE GDLN ACOG TESTING Note . [facility] Comment on above: TESTS RESULT FLAG UN ITS REF RANGE LAB Clinician Provided Cytology Information Source.............Vagina No. of containers..01 ThinPrep Vial Age Algo ACOG Marisol... 30-65 FLAG LEGEND: L-Low Normal,H-High Normal,LL-Alert Low,HH-Alert High <-Panic Low,>-Panic High,A-Abnormal,AA-Critical Abnormal Performed at: 01 =[address] [id number] Coby Russell MD, HPV APTIMA Negative Negative [facility] Comment on above: This nucleic acid am plification test detects fourteen high- risk HPV types (16,18,31,33,35,39,45,51,52,56,58,59,66,68) without differentiation. Performed at: = - [address] [id number] Senior Environmental Scientist: Coby Russell MD, Phone: [phone] Performed at: [address] [id number] Senior Environmental Scientist: Coby Russell MD, Phone: [phone] IGP, APTIMA HPV, RFX 16/18,45 Note . [facility] Comment on above: TESTS RESULT FLAG UN ITS REF RANGE LAB DIAGNOSIS: 02 NEGATIVE FOR INTRAEPITHELIAL LESION OR MALIGNANCY. Specimen adequacy: 02 Satisfactory for evaluation. Performed by: Deena Crump, Pack Worker (ASCP) . 02 Note: Note 02 The Pap smear is a screening test designed to aid in the detection of premalignant and malignant conditions of the uterine cervix. It is not a diagnostic procedure and should not be used as the sole means of detecting cervical cancer. Both false-positive and false-negative reports do occur. Test Methodology: Note 02 This liquid based ThinPrep(R) pap test was screened with the use of an image guided system. HPV Genotype Reflex Note 02 Criteria not met, HPV Genotype not performed. FLAG LEGEND: L-Low Normal,H-High Normal,LL-Alert Low,HH-Alert High <-Panic Low,>-Panic High,A-Abnormal,AA-Critical Abnormal Performed at: 02 [facility] [address] [place] [address] Coby Russell MD, SPATULA-ALONE V[facility] - Chemistry and C hemistry - challengeon 02-21-2024 Albumin [Mass/Vol] 3.6 g/dL 3.4-5.0 [facility] Magnesium [Mass/Vol] 1.7 mg/dL Low 1.8-2.4 [facility] Urate [Mass/Vol] 4.6 mg/dL 2.6-6.0 [facility] Bilirubin Ql (U) Negative NEGATIVE [facility] Glucose (U) [Mass/Vol] Negative NEGATIVE [facility] Ketones Ql (U) Negative NEGATIVE [facility] pH (U) 6.0 [pH] 5.0-9.0 [facility] Specific gravity (U) [Rel density] 1.020 1.005-1.025 [facility] Urobilinogen Qn (U) 0.2 {Jimmy'U}/dL 0.2-1.0 [facility] Laboratory - Specimen inform ationon 02-21-2024 Appearance (U) CLEAR CLEAR [facility] Color (U) LT. YELLOW YELLOW [facility] Laboratory - Urinalysison Leukocyte esterase Test strip Ql (U) Negative NEGATIVE [facility] Nitrite Ql (U) Negative NEGATIVE [facility] Protein (U) [Mass/Vol] 13.0 mg/dL High <=11.9 [facility] Protein Ql (U) Negative NEG/TRACE [facility] Microalbumin [Mass/volume] i n Urineon 02-21-2024 Albumin DL <= 20 mg/L (U) [Mass/Vol] mg/dL <=30.0 [facility] No Panel Informationon 02-20 25-Hydroxy Vitamin D Total 54.3 ng/mL [facility] Comment on above: <20 ng/mL Vit D defi cient20-<30 ng/mL Vit D [id number] ng/mL Vit D sufficient>100 ng/mL Potential Toxicity Parathyroid Hormone (Intact) 28 pg/mL 15-65 [facility] Comment on above: Performed at: [employer] [address] Director: Davion Noonan PhD, Phone: [phone] Phosphorus Level 4.0 mg/dL 2.6-4.7 [facility] Urine Occult Blood TRACE-I NEGATIVE [facility] Urine Random Creatinine 148.15 mg/dL 20.00-300.00 [facility] Protein/Creatinine (U) [Rati o]on 02-21-2024 Urine Protein/Creatinine Ratio 0.09 [facility] ALL BUNon 08-22-2023 Urea nitrogen [Mass/Vol] 21.0 mg/dL High 7.0 - 18.0 mg/dL [facility] No Panel Informationon 08-22 Interpretation and review of laboratory results Abnormal [facility] CREATININEon 08-22-2023 Creatinine [Mass/Vol] 1.48 mg/dL High 0.55 - 1.02 mg/dL [facility] GFR/1.73 sq M.predicted CKD-EPI (S/P/Bld) [Vol rate/Area] 44 Low 60 - PINF [facility] TBH EGFR-NON AF TURKISH 36 Low 60 - PINF [facility] Healthcare XR LSPINE MIN 4 VIEWSon 05-15 XR [...] HUFF Date: 2022-06-07 12:[address] [facility] B-Type Natriuretic Peptideon 10-10-2021 Natriuretic peptide B (Bld) [Mass/Vol] 64.0 pg/mL Normal 5-100 [facility] Comment on above: Result Comment: PERF ORMED BY: [place] [address] PATHOLOGIST [employer] MANAGER SHIMA SY M.D. Performed By: #### C K, CKMB, CBC, BMP, BNP #### [address] Basic Metabolic Panelon 09-13 Calcium [Mass/Vol] 9.3 mg/dL Normal 8.2-10.2 [facility] Comment on above: Performed By: #### C K, CKMB, CBC, BMP, BNP #### [address] Chloride [Moles/Vol] 104 mmol/L Normal 95-114 [facility] Comment on above: Performed By: #### C K, CKMB, CBC, BMP, BNP #### [place] [id number] [place] CO2 [Moles/Vol] 19.9 mmol/L Low 22.0-30.0 [facility] Comment on above: Performed By: #### C K, CKMB, CBC, BMP, BNP #### [address] Creatinine [Mass/Vol] 1.27 mg/dL High 0.44-1.03 [facility] Comment on above: Performed By: #### C K, CKMB, CBC, BMP, BNP #### [address] Creatinine Clr Calc Pharmacy 45.75 [facility] Comment on above: Result Comment: PERF ORMED BY: [place] [address] PATHOLOGIST [employer] MANAGER SHIMA SY M.D. Performed By: #### C K, CKMB, CBC, BMP, BNP #### [address] Estimated GFR ( Demetra 52 [facility] Comment on above: Result Comment: GFR estimated reference range: According to KDOQI guidelines, <60 ml/min/1.73m2 is sufficient to diagnose a patient with chronic kidney disease. Performed By: #### C K, CKMB, CBC, BMP, BNP #### [address] Estimated GFR (Non- Am 43 [facility] Comment on above: Performed By: #### C K, CKMB, CBC, BMP, BNP #### [address] Glucose [Mass/Vol] 96 mg/dL Normal 70-100 [facility] Comment on above: Result Comment: [place] Glucose Reference Range is dependent on time and content of last meal. Glucose of more than 200 mg/dL in a nonstressed, ambulatory subject supports the diagnosis of Diabetes Mellitus. ADA recommended reference range Performed By: #### C K, CKMB, CBC, BMP, BNP #### [address] Potassium [Moles/Vol] 3.7 mmol/L Normal 3.5-5.1 [facility] Comment on above: Performed By: #### C K, CKMB, CBC, BMP, BNP #### [facility] [address] Sodium [Moles/Vol] 135 mmol/L Low 136-146 [facility] Comment on above: Performed By: #### C K, CKMB, CBC, BMP, BNP #### [facility] [address] Urea nitrogen [Mass/Vol] 17 mg/dL Normal 9-23 [facility] Comment on above: Performed By: #### C K, CKMB, CBC, BMP, BNP #### [facility] [address] COVID-19 Antigenon 2 COVID-19 [facility] Healthcare [...] its performance Bella Disclaimer characteristic determined by [employer] and Bella Disclaimer validated at [facility]. This Bella Disclaimer test has not been [...] Emergency Use Authorization for Coronavirus Bella Disclaimer is during the Public Health Emergency) Bella Disclaimer [...] is terminated or revoked sooner. PERFORMED BY: [facility] [place] [address] PATHOLOGIST [employer] MANAGER SHIMA SY M.D. [facility] Comment on above: Performed By: #### Conchis AGUIRRE COVID-19 BELLA, SOFIANEG #### [address] Complete Blood Count Auto Di ffon 10-10-2021 Basophils (Bld) [#/Vol] 0.1 10*3/uL Normal 0.0-0.2 [facility] Comment on above: Result Comment: PERF ORMED BY: [place] [address] PATHOLOGIST [employer] MANAGER SHIMA SY M.D. Performed By: #### C K, CKMB, CBC, BMP, BNP #### [address] Basophils/100 WBC (Bld) 1.4 % Normal . [facility] Comment on above: Performed By: #### C K, CKMB, CBC, BMP, BNP #### [address] Eosinophils (Bld) [#/Vol] 0.2 10*3/uL Normal 0.0-0.45 [facility] Comment on above: Performed By: #### C K, CKMB, CBC, BMP, BNP #### [address] Eosinophils/100 WBC (Bld) 2.3 % Normal . [facility] Comment on above: Performed By: #### C K, CKMB, CBC, BMP, BNP #### [address] Erythrocyte distribution width (RBC) [Ratio] 13.2 % Normal 11.9-15.3 [facility] Comment on above: Performed By: #### C K, CKMB, CBC, BMP, BNP #### [address] Hematocrit (Bld) [Volume fraction] 41.5 % Normal 34.0-46.4 [facility] [facility] Comment on above: Performed By: #### C K, CKMB, CBC, BMP, BNP #### [address] Hemoglobin (Bld) [Mass/Vol] 13.8 g/dL Normal 11.8-15.4 [facility] Comment on above: Performed By: #### C K, CKMB, CBC, BMP, BNP #### [address] Lymphocytes (Bld) [#/Vol] 3.6 10*3/uL Normal 1.00-4.8 [facility] Comment on above: Performed By: #### C K, CKMB, CBC, BMP, BNP #### [address] Lymphocytes/100 WBC (Bld) 39.0 % Normal . [facility] Comment on above: Performed By: #### C K, CKMB, CBC, BMP, BNP #### [address] MCH (RBC) [Entitic mass] 30.7 pg Normal 24.7-34.3 [facility] Comment on above: Performed By: #### C K, CKMB, CBC, BMP, BNP #### [address] MCV (RBC) [Entitic vol] 91.9 fL Normal 80-100 [facility] Comment on above: Performed By: #### C K, CKMB, CBC, BMP, BNP #### [address] Mean Corpuscular HGB Conc 33.4 g/dL Normal 32.0-35.0 [facility] Comment on above: Performed By: #### C K, CKMB, CBC, BMP, BNP #### [address] Monocytes (Bld) [#/Vol] 0.8 10*3/uL Normal 0.0-0.8 [facility] Comment on above: Performed By: #### C K, CKMB, CBC, BMP, BNP #### [address] Monocytes/100 WBC (Bld) 9.0 % Normal . [facility] Comment on above: Performed By: #### C K, CKMB, CBC, BMP, BNP #### [address] Neutrophils (Bld) [#/Vol] 4.4 10*3/uL Normal 1.8-7.7 [facility] Comment on above: Performed By: #### C K, CKMB, CBC, BMP, BNP #### [address] Neutrophils/100 WBC (Bld) 48.3 % Normal . [facility] Comment on above: Performed By: #### C K, CKMB, CBC, BMP, BNP #### [address] Nucleated RBC/100 WBC (Bld) [Ratio] 0.1 % Normal 0-0.5 [facility] Comment on above: Performed By: #### C K, CKMB, CBC, BMP, BNP #### [address] Platelet mean volume (Bld) [Entitic vol] 7.0 fL Normal 6.3-10.7 [facility] Comment on above: Performed By: #### C K, CKMB, CBC, BMP, BNP #### [address] Platelets (Bld) [#/Vol] 237 10*3/uL Normal 150-450 [facility] Comment on above: Performed By: #### C K, CKMB, CBC, BMP, BNP #### [address] RBC (Bld) [#/Vol] 4.51 10*6/uL Normal 3.60-5.00 [facility] Comment on above: Performed By: #### C K, CKMB, CBC, BMP, BNP #### [address] WBC (Bld) [#/Vol] 9.1 10*3/uL Normal 4.5-11.0 [facility] Comment on above: Performed By: #### C K, CKMB, CBC, BMP, BNP #### [facility] [address] Creatine Kinaseon 10-10-2021 CK [Catalytic activity/Vol] 69 U/L Normal 22-269 [facility] Comment on above: Performed By: #### C K, CKMB, CBC, BMP, BNP #### [facility] [address] Creatinine Kinase MBon 10-10 CK.MB [Mass/Vol] 3.1 ng/mL Normal 0.6-6.3 [facility] Comment on above: Performed By: #### F CARLA, COVID-19 BELLA, SOFIANEG #### [facility] [address] CKMB Relative Index 4.4 % High 0.00-2.50 [facility] Comment on above: Result Comment: PERF ORMED BY: [place] [address] PATHOLOGIST [employer] SHIMA SY M.D. Performed By: #### F CARLA, COVID-19 BELLA, SOFIANEG #### [address] ECG 12 lead ECGon 10-10-2021 ECG 12 lead ECG [facility] [place] [address] [place] [address] Electrocardiograph Report Signed Patient: Мария Lay MR#: [id number] : 1965 Acct:[id number] Age/Sex: 55 / F ADM Date: 10/10/21 [...] leads Confirmed by ABIMAEL PARKS DO ([id number]), staff editor Trent Garay ([id number]) on 10/11/2021 11:15:22 AM Referred By: Electronically Signed By:ABIMAEL PARKS DO Transcribed By: MUS Signed By Abimael Parks DO [address] [facility] Influenza A and B Antigenon 10-10-2021 Influenza [...] samples is recommended. Note 7 PERFORMED BY: [place] [address] PATHOLOGIST [employer] SHIMA SY M.D. [facility] Comment on above: Performed By: #### Conchis AGUIRRE COVID-19 BELLA, SOFIANEG #### [facility] [address] [place] [address] Bella Ag Negativeon 10-11-19 22 Bella Ag Negative Negative Normal Negative [facility] Comment on above: Result Comment: This is a duplicate Bella SARS Antigen (BLAYNE) result to be used for statistical tracking purpose only. PERFORMED BY: [place] [address] PATHOLOGIST [employer] SHIMA SY M.D. Performed By: #### Conchis AGUIRRE COVID-19 BELLA, SOFIANEG #### [facility] [address] [place] [address] Troponin I High Sensitivityo n 10-10-2021 Troponin I High Sensitivity 12 pg/mL Normal 0-15 [facility] Comment on above: Result Comment: PERF ORMED BY: [place] [address] PATHOLOGIST [employer] SHIMA SY M.D. Performed By: #### H S TROP #### [address] XR chest 1V portableon 10-10 XR chest 1V portable [facility] [place] [address] [place] [address] XRay Report Signed Patient: Мария Lay MR#: [id number] : 1965 Acct:[id number] Age/Sex: 55 / F ADM Date: 10/10/21 Loc: ER Room: Type: [facility] ER Attending Dr: Ordering Provider: Abimael [...] David Walker M.D.10/10/2021 7:52 PM Dictation Location: [place] [address] Transcribed By: [facility] 10/10/211951 Dictated By: David Walker II, MD 10/10/21 1950 Signed By: 10/10/211951 Normal [facility] XR ANKLE LEFT 3+ VIEWS (SHERRY DARD)on 07-29-2021 XR ANKLE LEFT 3+ VIEWS (STANDARD) [...] bodies. IMPRESSION: No obvious fractures or dislocations. [facility] Workstation ID: [id number] Dictated by: LOULOU TREVINO on FriJul 29, 2021 8:55:54 PM EST Transcribed by: DARYA SCHILLING on FriJul 29, 2021 8:57:24 PM EST Finalized by: LOULOU TREVINO on FriJul 29, 2021 10:03:27 PM EST Normal [facility] Comment on above: Order Comment: Injur y/Trauma or Illness?:Injury/Trauma How long have you had these symptoms (acute/chronic)?:Acute Reason for exam?:pain History of cancer?:u Surgeries, chemotherapy, or radiation?:u Type of Exam?:Initial Mechanism of injury?:fall Vital Signs Date Time Vital Sign Value Performing Clinician Major kim 04-28-2024 15:13-0400 Body mass index (BMI) [Ratio] 31.13 kg/m2 Danya CHATTERJEE Work Phone: [facility] 04-28-2024 15:13-0400 Body weight 88.81 kg Danya CHATTERJEE Work Phone: [facility] 04-28-2024 15:13-0400 Diastolic blood pressure 72 mm[Hg] Danya CHATTERJEE Work Phone: [facility] 04-28-2024 15:13-0400 Systolic blood pressure 120 mm[Hg] Danya CHATTERJEE Work Phone: [facility] 03-17-2024 16:24-0400 Body height 168.91 cm MD Chinmay Manning Work Phone: [facility] 03-17-2024 16:24-0400 Body mass index (BMI) [Ratio] 31.8 kg/m2 MD Chinmay Manning Work Phone: [facility] 03-17-2024 16:24-0400 Body temperature 97.8 [degF] MD Chinmay Manning Work Phone: [facility] 03-17-2024 16:24-0400 Body weight 90.88 kg MD Chinmay Manning Work Phone: [facility] 03-17-2024 16:24-0400 Diastolic blood pressure 81 mm[Hg] MD Chinmay Manning Work Phone: [facility] 03-17-2024 16:24-0400 Heart rate 97 /min MD Chinmay Manning Work Phone: [facility] 03-17-2024 16:24-0400 Respiratory rate 18 /min MD Chinmay Manning Work Phone: [facility] 03-17-2024 16:24-0400 SaO2% (BldA) [Mass fraction] 94 % MD Chinmay Manning Work Phone: [facility] 03-17-2024 16:24-0400 Systolic blood pressure 129 mm[Hg] MD Chinmay Manning Work Phone: [facility] 12-09-2023 15:25-0400 Body height 168.91 cm MD Chinmay Manning Work Phone: [facility] 12-09-2023 15:25-0400 Body mass index (BMI) [Ratio] 32.3 kg/m2 MD Chinmay Manning Work Phone: [facility] 12-09-2023 15:25-0400 Body temperature 97.3 [degF] MD Chinmay Manning Work Phone: [facility] 12-09-2023 15:25-0400 Body weight 92.24 kg MD Chinmay Manning Work Phone: [facility] 12-09-2023 15:25-0400 Diastolic blood pressure 72 mm[Hg] MD Chinmay Manning Work Phone: [facility] 12-09-2023 15:25-0400 Heart rate 113 /min MD Chinmay Manning Work Phone: [facility] 12-09-2023 15:25-0400 Respiratory rate 16 /min MD Chinmay Manning Work Phone: [facility] 12-09-2023 15:25-0400 SaO2% (BldA) [Mass fraction] 96 % MD Chinmay Manning Work Phone: [facility] 12-09-2023 15:25-0400 Systolic blood pressure 112 mm[Hg] MD Chinmay Manning Work Phone: [facility] 01-17-2022 16:30-0400 Body height 168.91 cm Bahman Meneses Other [employer] Other 01-17-2022 16:30-0400 Body mass index (BMI) [Ratio] 21.62 kg/m2 Bahman Meneses Other [employer] Other 01-17-2022 16:30-0400 Body weight 61.69 kg Bahman Meneses Other [employer] Other 10-16-2021 16:45-0400 Body height 168.91 cm Bahman Meneses Other [employer] Other 10-16-2021 16:45-0400 Body mass index (BMI) [Ratio] 20.98 kg/m2 Bahman Meneses Other [employer] Other 10-16-2021 16:45-0400 Body weight 59.88 kg Bahman Meneses Other [employer] Other 07-12-2021 11:05-0500 Body height 168.91 cm Christiana Ginty Other [employer] Other 07-12-2021 11:05-0500 Body temperature 97.5 [degF] Christiana Ginty Other [employer] Other 07-12-2021 11:05-0500 Diastolic blood pressure 106 mm[Hg] Christiana Ginty Other [employer] Other 07-12-2021 11:05-0500 Respiratory rate 18 /min Christiana Ginty Other [employer] Other 07-12-2021 11:05-0500 SaO2% (BldA) [Mass fraction] 98 % Christiana Ginty Other [employer] Other 07-12-2021 11:05-0500 Systolic blood pressure 153 mm[Hg] Christiana Ginty Other [employer] Other 07-04-2021 12:00-0500 Body height 168.[address] [facility] Other [employer] Other 07-04-2021 12:00-0500 Body mass index (BMI) [Ratio] 17.88 kg/m2 [facility] Other [employer] Other 07-04-2021 12:00-0500 Body weight 51.[address] [facility] Other [facility] [place] Other Encounters Encounter Date Encounter Type Care Provider Facility Start: 04-28-2024 End: 04-28-2024 Patient encounter procedure Danya CHATTERJEE Work Phone: [facility] Work Phone: Start: 04-28-2024 End: 04-28-2024 Periodic preventive med est patient 40-64yrs Danya CHATTERJEE Work Phone: [facility] Comment on above: Well woman exam with routine gynecological exam; Breast cancer screening by mammogram; Postmenopausal state; Hormone imbalance Start: 04-28-2024 End: 04-28-2024 ambulatory DANYA NAJERA Not Available Start: 04-28-2024 End: 04-28-2024 Bamboo flowsheet Danya CHATTERJEE Work Phone: [facility] Start: 04-28-2024 End: 05-05-2024 Bamboo flowsheet Danya CHATTERJEE Work Phone: [facility] Start: 04-28-2024 End: 05-05-2024 Clinisync Result Encounter Danya CHATTERJEE Work Phone: [facility] Unsolicited Start: 03-24-2024 End: 03-24-2024 ambulatory URSULA GARZA Not Available Start: 03-17-2024 End: 03-17-2024 ambulatory MD Chinmay Manning Work Phone: [facility] Work Phone: Start: 03-17-2024 End: 03-17-2024 Patient encounter procedure MD Chinmay Manning Work Phone: [facility] [place] Work Phone: Start: 02-21-2024 Non-patient / Non-visit MD Chinmay Manning Work Phone: [facility] [employer] Work Phone: Start: 02-12-2024 End: 02-12-2024 ambulatory SHAIKH CECILIO Not Available Start: 12-26-2023 Registered Recurring MD Jeff Manning Work Phone: [facility] Start: 12-09-2023 End: 12-09-2023 ambulatory MD hCinmay Manning Work Phone: [facility] Work Phone: Start: 12-09-2023 End: 12-09-2023 Patient encounter procedure MD Chinmay Manning Work Phone: [facility] Nephrology [place] Work Phone: Start: 11-17-2023 End: 11-17-2023 ambulatory SHAIKH CECILIO Not Available Start: 09-25-2023 Registered Recurring MD Jeff Manning Work Phone: [facility] Start: 08-22-2023 End: 08-22-2023 ambulatory Jorge Luis Barajas Other [facility] [place] Other Start: 08-22-2023 Clinisync Result Encounter Shaikh Cecilio WALKER Work Phone: [facility] Unsolicited Start: 08-22-2023 Clinisync Result Encounter Shaikh Cecilio WALKER Work Phone: [facility] Unsolicited Start: 08-22-2023 Telephone encounter Jorge Luis Barajas [facility] [place] Start: 08-18-2023 End: 08-18-2023 ambulatory SHAIKH CECILIO Not Available Start: 06-16-2023 End: 06-16-2023 ambulatory SHAIKH CECILIO Not Available Start: 07-02-2022 End: 07-03-2022 ambulatory BECCA THOMAS Facility:[facility] Start: 06-07-2022 End: 06-08-[address] ETHAN COATS Facility:[facility] Start: 01-28-2022 End: 01-28-2022 ambulatory Bahman Meneses Other [employer] Other Start: 01-28-2022 Telephone encounter Bahman vasquez [facility] Start: 01-17-2022 End: 01-17-2022 ambulatory Bahman Meneses Other [employer] Other Start: 01-17-2022 Office outpatient visit 15 minutes Bahman Meneses [facility] Start: 11-09-2021 End: 11-09-2021 ambulatory Bahman Meneses Other [employer] Other Start: 11-09-2021 Telephone encounter Bahman vasquez [facility] Start: 10-16-2021 End: 10-16-2021 ambulatory Bahman Meneses Other [employer] Other Start: 10-16-2021 Office outpatient visit 15 minutes Bahman Meneses [facility] Start: 10-10-2021 End: 10-11-2021 Emergency department patient visit [place] Facility:[facility] Start: 07-28-2021 End: 08-04-2021 Evaluation and management of inpatient [facility] Start: 07-12-2021 End: 07-12-2021 ambulatory Christiana Ginty Other [employer] Other Start: 07-12-2021 Office outpatient visit 15 minutes Christiana Ginty [facility] Start: 07-04-2021 End: 07-04-[address] [facility] Other [employer] Other Start: 07-04-2021 Office outpatient ne w [address] [facility] Procedures Date Procedure Procedure Detail Performing Clinician Start: 04-28-2024 IGP,APTIMA HPV,AGE GDLN Danya CHATTERJEE Work Phone: Start: 08-22-2023 ALL BUN Shaikh Jose hernandez MD Work Phone: Start: 08-22-2023 [facility] Shaikh Conchis pinto MD Work Phone: Plan of Treatment Date Care Activity Detail Author Start: 05-02-2025 End: 05-02-2025 Patient encounter procedure 05/02/2025 3:00 PM EDT Office Visit [facility] [address] [address] Danya Najera PA [address] [place] [address] [place] [address] [facility] Start: 06-23-2024 End: 06-23-2024 Patient encounter procedure 06/23/2024 5:00 PM EST Office Visit [facility] [address] [place] [id number] Ursula Garza, JAIME [address] [place] [address] [facility] Start: 04-28-2024 End: 04-28-2024 Patient encounter procedure 04/28/2024 3:00 PM EDT Office Visit [facility] [address] [address] Danya Najera, PA [address] [place] [address] [place], [place] [id number] Arrived [facility] Comment on above: Arrived Start: 04-28-2024 End: 04-28-2025 DXA Skeletal system Views for bone density DEXA bone density Imaging Routine Postmenopausal state Expected: 04/28/2024 (Approximate), Expires: 04/28/2025 [facility] Comment on above: Expected: 04/28/2024 (Approximate), Expires: 04/28/2025 Start: 04-28-2024 End: 06-28-2025 MG Breast - bilateral Screening Bilateral screening mammogram Imaging Routine Breast cancer screening by mammogram Expected: 04/28/2024, Expires: 06/28/2025 [facility] Work Phone: Comment on above: Expected: 04/28/2024 , Expires: 06/28/2025 Start: 03-14-2024 Influenza vaccination Influenza Vacc ine (#1) [facility] Start: 11-17-2023 End: 11-17-2023 Patient encounter procedure 11/17/2023 5:00 PM EDT Office Visit [facility] [address] [place] [phone] Shaikh Hernandes MD [address] [place] [address] [facility] Start: 09-12-2023 Screening for malignant neoplasm of breast Mammogram [facility] Comment on above: Postponed from 12/07 (Insurance / Financial) Start: 03-14-2023 Influenza vaccination Influenza Vacc ine (#1) [facility] Start: 2003 Screening for malignant neoplasm of breast Mammogram [facility] Start: 12-07-1993 Screening for malignant neoplasm of cervix [facility] Start: 12-07-1984 Screening for malignant neoplasm of cervix Pap Smear [facility] Start: 1965 Medicare Annual Wellness (AWV) Medicare Annual Wellness (AWV) [facility] Start: 1965 Screening for malignant neoplasm of colon [facility] Renal function 1999 panel - Serum or Plasma [facility] Renal function 1999 panel - Serum or Plasma [facility] THIN PREP TIS PAP AN D HR HPV DNA THIN PREP TIS PAP AND HR HPV DNA Pathology and Cytology Routine Well woman exam with routine gynecological exam Ordered: 04/28/2024 [facility] Comment on above: Ordered: 04/28/2024 [facility] Immunizations Immunization Date Immunization Notes Care Provider Fa cility 07-12-2021 tetanus and diphther ia toxoids, adsorbed, preservative free, for adult use (5 Lf of tetanus toxoid and 2 Lf of diphtheria toxoid) Christiana Lazaro Other [employer] [facility] Other Payers Date Payer Category Payer Unknown [employer] [id number] 2023-Present [address] [place] [address] [id number] 2023 Unknown [id number] 2022 [facility] er [id number] 2022 Medicare WELLCARE MEDICAR E [employer] BY [employer] [id number] 2022-Present [address] [place] [address] [id number] 2022 Unknown [id number] 2021 Medicare (Managed Care) [employer] [place] [address] [place] [address] [id number] 2021 Unknown [id number] 1965 Unknown [id number]. 2.903 1965 Unknown [id number] [id number]. 2.593 1965 Unknown [id number] [id number]. 2.593 1965 Unknown [id number]. 2.1259 1965 Unknown [id number] [id number]. 2.9 1965 Unknown [id number] [id number]. 2.1258 1965 Unknown [id number] [id number]. 2.9 1965 Unknown [id number] [id number]. 2.9 1965 Unknown [id number] [id number]. 2.1259 1959 Unknown [id number] Medicare [id number] Self-pay Self Pay [id number] Social History Date Type Detail Facility Unknown if ever smoked [employer] Other Start: 08-18-2023 End: 03-24-2024 Sex Assigned At [employer] Other Start: 07-14-1983 End: 03-24-2024 Tobacco smoking status NMIS Smokes tobacco daily [facility] Start: 07-14-1983 History of tobacco use Cigarette Smo ker [facility] Start: 06-16-2023 End: 03-24-2024 Cigarettes smoked current (pack per day) - Reported 0.5 [facility] Start: 06-16-2023 End: 03-24-2024 Tobacco use and exposure Smokeless tobacco non-user [facility] Start: 08-18-2023 End: 04-28-2024 Alcohol intake Lifetime non-drinker (finding) [facility] Start: 1965 Sex Assigned At Not on file N [facility] Start: 12-09-2023 Tobacco smoking stat [facility] Smoker (finding) [facility] Start: 1965 Sex Assigned At Female F [facility] Medical Equipment Procedure Code Equipment Code Equipment Origin al Text Equipment Identifier Dates Capsule endoscopy, for patency of lumen evaluation Video capsule endoscopy system [id number] FDA Start: 08-16-2019 Clinical Notes 04-08-2014 to 04-28-2024 SHENA Stubbs - 04/28/2024 3:00 PM EDT Note Date & Type Note Facility 04-28-2024 History of Presen t illness Narrative Reason for Appointment: Patient ID: Millicent Lay is a 58 y.o. female who presents for Well Women Visit Patient presents today for Annual Exam. MEDICATIONS Current Outpatient Medications Medication Instructions cyclobenzaprine (FLEXERIL) 5 mg, Oral, Nightly EPINEPHrine (EPIPEN) 0.3 mg, Injection, Once, use as directed for allergic reaction and then call 911 estradiol (ESTRACE) 1 mg, Oral, Daily losartan (COZAAR) 100 mg, Oral, Daily magnesium oxide (MAG-OX) 400 mg, Oral, Daily nicotine (Nicoderm CQ) 14 MG/24HR patch 1 patch, Transdermal, Every 24 hours, Use after patient has used 21 mg dose. nicotine (Nicoderm CQ) 21 MG/24HR patch 1 patch, Transdermal, Every 24 hours nicotine polacrilex ([employer] NICOTINE POLACRILEX) 4 mg, Mouth/Throat, Every 2 hour PRN omeprazole (PRILOSEC) 20 mg, Oral, Daily before breakfast, Do not crush or chew. paliperidone (INVEGA) 3 mg, Oral, Every morning, Do not crush, chew, or split. topiramate (TOPAMAX) 100 mg, Oral, 2 times daily traZODone (DESYREL) 200 mg, Oral, Nightly ALLERGIES Allergies Allergen Reactions Other Hives, Shortness of breath and Swelling Especially black walnuts Bactrim [Sulfamethoxazole-Trimethoprim] Bee Pollen Bee Venom Hives Black Aleppo Flavor Walnuts Ciprofloxacin Hives Codeine Depakote [Valproic Acid] Dilaudid [Hydromorphone] E.E.S. [Erythromycin] Hydrocodone-Acetaminophen Lyrica [Pregabalin] Phenergan [Promethazine] Sulfamethoxazole Hives PROBLEMS Active Ambulatory Problems Diagnosis Date Noted Stage 3a chronic kidney disease (HCC) [place] 06/16/2023 Primary hypertension ([facility] 06/16/2023 Migraine without aura and without status migrainosus, not intractable ([facility] 06/16/2023 Tobacco dependency 06/16/2023 Anxiety 07/28/2021 Allergy to nuts (other than peanuts) 08/18/2023 Abnormal renal ultrasound 08/18/2023 Bipolar 2 disorder ([facility]) 11/17/2023 Screening for hyperlipidemia 02/12/2024 Screening for diabetes mellitus 02/12/2024 Class 1 obesity due to excess calories without serious comorbidity with body mass index (BMI) of 33.0 to 33.9 in adult 02/12/2024 Resolved Ambulatory Problems Diagnosis Date Noted No Resolved Ambulatory Problems Past Medical History: Diagnosis Date Abnormal foot pulse Anxiety and depression ([facility]) Arthritis Atypical migraine ([facility]) Back problem Back spasm Blood pressure elevated without history of HTN Depression with anxiety Dry mouth Elevated serum creatinine History of IBS Hormone replacement therapy (postmenopausal) Irritable bowel syndrome with diarrhea Irritable bowel syndrome with diarrhea Kidney disease Migraine headache ([facility] Migraines ([facility] Multiple sclerosis ([facility] [facility] [facility] [facility] Multiple sclerosis ([facility]) Onychomycosis PTSD (post-traumatic stress disorder) ([facility]) Stomach problems Urinary frequency Vision impairment HISTORY PAST MEDICAL HISTORY SOCIAL HISTORY Past Medical History: Diagnosis Date Abnormal foot pulse Anxiety and depression ([facility]) Arthritis Atypical migraine ([facility]) Back problem Back spasm Blood pressure elevated without history of HTN Depression with anxiety Dry mouth Elevated serum creatinine History of IBS Hormone replacement therapy (postmenopausal) Irritable bowel syndrome with diarrhea Irritable bowel syndrome with diarrhea Kidney disease Migraine headache (CMS/HCC) Migraines (CMS/HCC) Multiple sclerosis (CMS/HCC) Multiple sclerosis (CMS/HCC) Onychomycosis PTSD (post-traumatic stress disorder) (CMS/HCC) Stomach problems Urinary frequency Vision impairment Social History Tobacco Use Smoking status: Every Day Current packs/day: 0.50 Average packs/day: 0.5 packs/day for 40.8 years (20.4 ttl pk-yrs) Types: Cigarettes Start date: 1983 Smokeless tobacco: Never Vaping Use Vaping status: Never Used Substance Use Topics Alcohol use: Never Drug use: Never FAMILY HISTORY Family History Problem Relation Name Age of Onset Cancer Mother Kidney disease Mother Coronary artery disease Mother Hypertension Mother Stroke Father Hypertension Father Coronary artery disease Father SURGICAL HISTORY Past Surgical History: Procedure Laterality Date APPENDECTOMY 11/13/2010 CHOLECYSTECTOMY 02/24/2023 COLONOSCOPY 2020 HYSTERECTOMY 2019 TONSILLECTOMY REVIEW OF SYSTEMS Review of Systems: Review of Systems Constitutional: Negative. HENT: Negative. Eyes: Negative. Respiratory: Negative. Cardiovascular: Negative. Gastrointestinal: Negative. Genitourinary: Negative. Musculoskeletal: Negative. Skin: Negative. Neurological: Negative. All other systems reviewed and are negative. Hematological: Negative. Endocrine: Negative. Allergic/Immunologic: Negative. OBJECTIVE Objective: Physical Exam Constitutional: Appearance: Normal appearance. She is well-developed and normal weight. Genitourinary: Vulva normal. Right Adnexa: not tender and no mass present. Left Adnexa: not tender and no mass present. No cervical discharge. Breasts: Breasts are soft. Right: Normal. Left: Normal. HENT: Head: Normocephalic. Nose: Nose normal. Mouth/Throat: Mouth: Mucous membranes are moist. Cardiovascular: Rate and Rhythm: Normal rate and regular rhythm. Pulses: Normal pulses. Pulmonary: Effort: Pulmonary effort is normal. Breath sounds: Normal breath sounds. Abdominal: General: Bowel sounds are normal. There is no distension. Palpations: Abdomen is soft. Tenderness: There is no abdominal tenderness. There is no guarding or rebound. Musculoskeletal: General: No swelling. Normal range of motion. Cervical back: Normal range of motion. Right lower leg: No edema. Left lower leg: No edema. Neurological: General: No focal deficit present. Mental Status: She is alert and oriented to person, place, and time. Skin: General: Skin is warm and dry. Psychiatric: Mood and Affect: Mood normal. Behavior: Behavior normal. Thought Content: Thought content normal. Judgment: Judgment normal. Vitals and nursing note reviewed. Exam conducted with a cut out and marking machine operator present. Vitals: Estimated body mass index is 31.13 kg/m as calculated from the following: Height as of 03/24/24: 5' 6.5 . Weight as of this encounter: 195 lb 12.8 oz. BP: 120/72 No LMP recorded. ASSESSMENT & PLAN ICD-10-CM 1. Well woman exam with routine gynecological exam Z01.419 THIN PREP TIS PAP AND HR HPV DNA 2. Breast cancer screening by mammogram Z12.31 Bilateral screening mammogram Bilateral screening mammogram 3. Postmenopausal state Z78.0 DEXA bone density 4. Hormone imbalance E34.9 estradiol (Estrace) 1 MG tablet Annual Exam: Patient presents today for an annual exam. Patient states she is doing well and has no complaints. Pap was obtained without difficulty. Orders Placed This Encounter Procedures Bilateral screening mammogram DEXA bone density Follow Up: Patient is to return in one year for annual unless needed otherwise. Documented by Saumya Katz LPN on behalf of: SHENA Stubbs documented in this encounter [facility] 01-28-2022 Evaluation note Encounter Date Diagnosis Assessment Notes Jan, GERD (gastroesop hageal reflux disease) (ICD-10 - K21.9) [employer] Other 07-07-2022 Evaluation note* Encounter Date Diagnosis Assessment Notes Treatment Notes Treatment Clinical Notes Jan, Diarrhea (ICD-10 - R19.7) Continue Dicyclomine Jan, GERD (gastroesophageal reflux disease) (ICD-10 - K21.9) Continue Omeprazole without change [employer] Other 04-29-2022 Evaluation note* Encounter Date Diagnosis Assessment Notes Treatment Notes Treatment Clinical Notes Oct, GERD (gastroesophageal reflux disease) (ICD-10 - K21.9) [employer] Other 04-05-2022 Evaluation note* Encounter Date Diagnosis Assessment Notes Treatment Notes Treatment Clinical Notes Oct, Diarrhea, unspecified (ICD-10 - R19.7) CONTINUE DICYCLOMINE DIRECTED RTO 3 MONTHS Oct, GERD (gastroesophageal reflux disease) (ICD-10 - K21.9) STOP CARAFATE [employer] Other 12-30-2021 Evaluation note* Encounter Date Diagnosis [...] With Stitches: Care Instructions material was printed [employer] Other 12-22-2021 Evaluation note* Encounter Date Diagnosis [...] elevation therapy. Recommended that she continue with [id number] oral anti-inflammatories . Informed her that she [...] 4 weeks to check on her progress. [employer] Other 09-26-2014 History general Narrative - Reported* [...] Hospitalization History [facility] [place] [facility] [employer] Other 09-26-2014 History general Narrative - Reported* [...] Hospitalization History [facility] [place] [facility] [employer] Other Evaluation noteNo [employer] Other Evaluation note* Diagnosis Onset Date Resolution Status Chronic kidney disease, stage 3b acute Hypertensive nephropathy acu te Lesion of left [place] kidney acute [facility] Work Phone: Evaluation note* Diagnosis Onset Date Resolution Status Chronic kidney disease, stage 3b acute Hypertensive nephropathy acu te Hypomagnesemia acute Lesion of left [place] kidney acute [facility] Work Phone: Evaluation note* Diagnosis Primary hypertension ([facility])- Primary Unspecified essential hypertension Stage 3a chronic kidney disease (HCC) ([facility]) Migraine without aura and without status migrainosus, not intractable ([facility] [facility]) Tobacco dependency Tobacco use disorder Primary hypertension ([facility])- Primary Unspecified essential hypertension Stage 3a chronic kidney disease (HCC) ([facility]) Abnormal renal ultrasound Primary hypertension ([facility])- Primary Unspecified essential hypertension Stage 3a chronic kidney disease (HCC) ([facility] Tobacco dependency Tobacco use disorder Bipolar 2 disorder ([facility]) Other bipolar disorders Allergic reaction to bee sting Screening for hyperlipidemia- Primary Screening for lipoid disorders Screening for diabetes mellitus Primary hypertension ([facility]) Unspecified essential hypertension Tobacco dependency Tobacco use disorder Class 1 obesity due to excess calories without serious comorbidity with body mass index (BMI) of 33.0 to 33.9 in adult Primary hypertension ([facility])- Primary Unspecified essential hypertension Stage 3a chronic kidney disease (HCC) ([facility]) Class 1 obesity due to excess calories without serious comorbidity with body mass index (BMI) of 33.0 to 33.9 in adult Tobacco dependency Tobacco use disorder Bipolar 2 disorder ([facility]) Other bipolar disorders Well woman exam with routine gynecological exam Routine gynecological examination Breast cancer screening by mammogram Postmenopausal state Asymptomatic postmenopausal status (age-related) (natural) Hormone imbalance documented in this encounter [facility] Healthcare Summary Purpose Family History Relationship Condition Age at Onset Recorded Date/T [...] Unknown Hypertension Unknown sister Unknown Advance Directives Advance Directive Response Recorded Date/ Time Advance Directives No May 9:58am Chief Complaint and Reason for Visit Chief Complaint CKD 3 Reason for Visit Chronic kidney disea se, stage 3b Hypertensive nephropathy Lesion of left [place] kidney Chief Complaint BH RENAL 3 MONTH F/U Reason for Visit Chronic kidney disea se, stage 3b Hypertensive nephropathy Hypomagnesemia Lesion of left [place] kidney Additional Source Comments INFORMATION SOURCE (unrecogn ized section and content) DATE CREATED AUTHOR 08/08/2021 [facility] DATE CREATED AUTHOR AUTHOR'S ORGANIZ ATION 08/17/2022 [facility] DATE CREATED AUTHOR AUTHOR'S ORGANIZ ATION 11/27/2022 [facility] DATE CREATED AUTHOR AUTHOR'S ORGANIZ ATION 05/01/2024 [facility] dical Specialists EPIC REASON FOR VISIT (unrecogniz ed section and content) Reason Comments Well Women Visit Care Teams (unrecognized sec tion and content) [employer] Relationship Specialty Start Date End Date Shaikh Hernandes MD [address] [place] [address] PCP - General Internal Medicine 08/11/23 Margarette Estevez NP [address] [place] [address] Nurse Practitioner Family Medicine 05/26/23 Team Status: [...] 2023 Team Status: Active Member Role Status Dates Chinmay Manning MD Attending Provider Active Start: December 26, 2023 Team Status: Active Member Role Status Dates Ethan Coats DO Primary Care Provider Active Start: February 21, 2024 Debby Dominguez MD Attending Provider Active Star t: February 21, 2024 Team Status: Inactive Member Role Status Dates Ethan Coats DO Primary Care Provider Active Start: March 17, 2024 End: March 17, 2024 Debby Dominguez MD Attending Provider Active Star t: March 17, 2024 End: March 17, 2024 [employer] Relationship Specialty Start Date End Date Shaikh Hernandes MD [address] [place] [phone] PCP - General Internal Medicine 08/11/23 Margarette Estevez NP [address] [place] [phone] Nurse Practitioner Family Medicine 05/26/23 [employer] Relationship Specialty Start Date End Date Shaikh Hernandes MD [address] [place] [phone] PCP - General Internal Medicine 08/11/23 Margarette Estevez NP [address] [place] [phone] Nurse Practitioner Family Medicine 05/26/23 [employer] Relationship Specialty Start Date End Date Shaikh Hernandes MD [address] [place] [address] [place] [phone] PCP - General Internal Medicine 08/11/23 Margarette Estevez NP [address] [place] [phone] Nurse Practitioner Family Medicine 05/26/23 Goals (unrecognized section and content) Goals may [...] BE BASED ON THE PRIMARY CLINICAL RECORDS. [facility]. provides no warranty or guarantee of the accuracy or completeness of information in this document.
== END 2024-05-14 10:45 | disposition home or self-care (01) ==
LOC: MAMMO 10:44
PROVIDERS: Visit Provider Physician Assistant
DX: Z78.0 Asymptomatic menopausal state (principal); Z12.31 Encounter for screening mammogram for malignant neoplasm of breast; Z80.3 Family history of malignant neoplasm of breast; Z80.8 Family history of malignant neoplasm of other organs or systems; M85.80 Other specified disorders of bone density and structure, unspecified site
CPT/HCPCS: 77063; 77067; 77080

== ENCOUNTER 2024-08-07 08:53 | Outpatient (OUT) | payer BC, OTHER, SELFPAY ==
--- OUTSIDE RECORDS SUMMARY | 2024-08-07 08:55 | XMS_ITS | CCD ---
Author Organization [facility] Care Team Providers Care Cake Inspector Name Role Phone ELIANE BEEBE Admitting Unavailable ELIANE BEEBE Attending Unavailable SANDRA LIZARRAGA Consulting Unavailable Justin Che II Unavailable [phone] Christiana Lazaro Unavailable Bahman Meneses Unavailable [phone] Ethan Licona Primary Care Unavailable Abimael Parks Attending Unavailable Abimael Parks Admitting Unavailable JORGE L, DR ROONEY Admitting Unavailable JORGE L, DR ROONEY Primary Care Unavailable JORGE L, DR ROONEY Consulting Unavailable JORGE L, DR ROONEY Attending Unavailable DARIA, DR JAY Osuna Consulting Unavailable BECCA THOMAS Admitting Unavailable BECCA THOMAS Consulting Unavailable BECCA THOMAS Attending Unavailable JORGE L, DR ROONEY Primary Care Unavailable Herb PRIVATE DETECTIVE, Margarette Unavailable Shaikh Hernandes MD Primary Care Provider Jorge Luis Barajas Unavailable MD Chinmay Manning Attending Provider MD Chinmay Manning Attending Provider Herb PRIVATE DETECTIVE, Margarette Unavailable Shaikh Hernandes MD Primary Care Provider Shaikh Hernandes MD Unavailable SHAIKH HERNANDES Attending Unavailable SHAIKH HERNANDES Attending Unavailable SHAIKH HERNANDES Attending Unavailable URSULA GARZA Attending Unavailabl DANYA Marcano Attending Unavailable URSULA GARZA Attending Unavailabl e Allergies Allergy Classification Reported Allergen(s) Allergy Type Date of Onset Reaction(s) Facility Anti-Epileptic Agents (1 source) gabapentin Drug Allergy 01-18-20 [facility] Dihydrofolate Reductase Inhibitors (antibiotic) (1 source) Trimethoprim Drug Allergy 10-11-19 [facility] Opioid Agonists (2 sources) HYDROmorphone Drug Allergy 10-11-19 sick, [facility] peanut allergenic extract (1 source) peanut allergenic extract Drug Allergy 10-11-19 Rash [facility] Pollen (1 source) Bee pollen Substance Allergy 10-11-19 Anaphylaxis [facility] pregabalin (1 source) pregabalin Drug Allergy 01-18-20 Unknown Reaction [facility] Promethazine (1 source) Promethazine Drug Allergy 10-11-19 [facility] Quinolones (antibiotic) (1 source) Ciprofloxacin Drug Allergy 01-18-20 itching, nausea [facility] Sulfonamides (antibiotic) (1 source) Sulfamethoxazole Drug Allergy 10-11-19 [facility] Unclassified (1 source) codeine, depakote, bactrium, s Allergy to substance 01-18-20 [facility] Unclassified (2 sources) walnuts Allergy to substance 07-03-20 Anaphylaxis [facility] Valproate (1 source) Valproate Drug Allergy 10-11-19 22 itching, nausea [facility] (1 source) tree nut, unspecified; Translations: [TREE NUTS] Propensity to adverse reactions to drug (disorder) 07-28-19 [facility] Repository (1 source) BEE VENOM PROTEIN (HONEY BEE); Translations: [BEE VENOM PROTEIN (HONEY BEE)] Propensity to adverse reactions to drug (disorder) 11-30-19 15 [place] [facility] Repository (20 sources) Ciprofloxacin Drug Allergy 09-24-19 18 [facility] Other (8 sources) gabapentin Drug Allergy 03-17-20 24 Unknown, Unknown Reaction [facility] (20 sources) HYDROmorphone Drug Allergy 06-13-20 23 Unknown, sick [facility] Other (8 sources) pregabalin Drug Allergy 03-17-20 24 Unknown, Unknown Reaction [facility] (7 sources) codeine, depakote, bactrium, sulfa, bees walnuts Propensity to adverse reactions Unknown [facility] Other (1 source) Acetaminophen / HYDROcodone Drug Allergy 11-03-19 15 [facility] Repository (1 source) bee venom Drug allergy (disorder) 11-30-19 15 [facility] Repository (2 sources) Codeine Drug Allergy 11-03-19 15 Hives [facility] Repository (1 source) HYDROmorphone Drug Allergy 11-30-19 15 [facility] Repository (1 source) Sulfamethoxazole / Trimethoprim Drug Allergy 11-03-19 15 [facility] Repository (1 source) Valproate Drug Allergy 11-03-19 15 [facility] Repository (1 source) Misc-Food; Translations: [Misc-Food] Food allergy (disorder) 11-03-19 15 [facility] Repository (12 sources) Acetaminophen / HYDROcodone Drug Allergy 06-13-20 [facility] (13 sources) Bee pollen Propensity to adverse reactions 06-13-20 Anaphylaxis [facility] (12 sources) Codeine Drug Allergy 06-13-20 [facility] (12 sources) Erythromycin Drug Allergy 06-13-20 [facility] (12 sources) Honey bee venom Propensity to adverse reactions 11-30-[address] [facility] Work Phone: (12 sources) Pregabalin Propensity to adverse reactions 06-13-20 [facility] (13 sources) Promethazine Drug Allergy 06-13-[address] [facility] (13 sources) Sulfamethoxazole Allergy to substance 06-17-[address] [facility] (12 sources) Sulfamethoxazole / Trimethoprim Drug Allergy 06-13-20 23 [facility] (12 sources) Valproate Drug Allergy 06-13-20 [facility] (9 sources) [place] Flavor Propensity to adverse reactions 06-13-20 [facility] (12 sources) Other Propensity to adverse reactions 07-28-19 22 Hives, Shortness of breath, Swelling [facility] (1 source) peanut allergenic extract Drug Allergy 03-17-20 24 Rash [facility] (1 source) Trimethoprim Drug Allergy 03-17-20 24 Hives [facility] (1 source) Valproate Drug Allergy 03-17-20 24 itching, nausea [facility] (3 sources) [place] Flavoring Agent (Non-Screening) Propensity to adverse reactions 06-13-20 23 [facility] Medications Current Medications Medication Drug Class(es) Dates Sig (Normalized) Sig (Original) alendronic acid 70 mg / cholecalciferol 5600 unt oral tablet (4 sources) Bisphosphonate, Vitamin D Start: 05-27-2024 End: 05-27-2025 take 70-5600 tablets by mouth in the morning alendronate-cholecal ciferol (Fosamax Plus D) 70-5600 MG-UNIT tablet Indications: Osteopenia, unspecified location Take 1 tablet by mouth every 7 (seven) days Take in the morning with a full glass of water, on an empty stomach, and do not take anything else by mouth or lie down for the next 30 min. 4 tablet 05/27/2024 05/27/2025 Active alosetron 0.5 mg oral tablet (1 source) [...] Active cyclobenzaprine hydrochloride 10 mg oral tablet (18 sources) Muscle Relaxant Start: 03-24-2024 End: 06-23-2024 take 0.5 tablet by mouth at bedtime cyclobenzaprine (Flexeril) 10 MG tablet Indications: Back spasm Take 0.5 tablets (5 mg) by mouth at bedtime 30 tablet 1 06/23/2024 Active Start: 12-09-2023 take 10 mg by mouth three times daily Cyclobenzaprine Active 10 MG PO Three times daily December 09, 2023 12:00am End: 03-24-2024 take 5 mg by mouth three times daily as needed for muscle spasms cyclobenzaprine (Flexeril) 10 MG tablet Take 5 mg by mouth 3 (three) times a day as needed for muscle spasms. 03/24/2024 Discontinued (Dose adjustment) Elderberry preparation (3 sources) Elderberry Activ e [id number] 0.3 ml EPINEPHrine 1 mg/ml auto-injector (14 sources) alpha-Adrenergic Agonist, beta-Adrenergic Agonist, Catecholamine Start: [...] Injection Active estradiol 1 mg oral tablet (16 sources) Estrogen Start: 12-09-2023 End: 04-28-2025 take 1 tablet by mouth once daily estradiol (Estrace) 1 MG tablet Indications: Hormone imbalance TAKE 1 TABLET BY MOUTH EVERY DAY 90 tablet 4 05/24/2024 Active losartan potassium 100 mg oral tablet (16 sources) Angiotensin 2 Receptor [place] Start: 08-11-2023 End: 12-20-2024 take 1 tablet by mouth once daily losartan (Cozaar) 100 MG tablet Indications: Primary hypertension (CMS/HCC) Take 1 tablet (100 mg) by mouth Daily 90 tablet 1 01/19/2024 07/17/2024 Active Magnesium (3 sources) Magnesium Active magnesium oxide 400 mg oral tablet (11 sources) Start: 03-17-2024 take 1 tablet by [...] 5 day(s) Jun, Active 24 hr nicotine 0.292 mg/hr transdermal system (20 sources) Cholinergic Nicotinic Agonist Start: 06-23-2024 End: 07-23-2024 nicotine (Nicoderm, Step 3) 7 MG/24HR patch Indications: Tobacco dependency Place 1 patch over 24 hours on the skin 1 (one) time each day at the same time 14 patch 06/23/2024 07/23/2024 Active Start: 03-24-2024 End: 06-23-2024 nicotine polacrilex ([facility] otine Polacrilex) 4 MG lozenge Indications: Tobacco dependency Dissolve 1 lozenge (4 mg) in the mouth every 2 (two) hours if needed for smoking cessation 100 lozenge 03/24/2024 06/23/2024 Discontinued (Med list cleanup) Start: 03-17-2024 Nicotine Activ e TRANSDERML March 17, 2024 12:00am Start: 02-12-2024 End: 07-23-2024 apply 1 dose transdermal route every twenty-four hours nicotine (Nicoderm CQ) 14 MG/24HR patch Indications: Tobacco dependency Place 1 patch over 24 hours on the skin 1 (one) time each day at the same time Use after patient has used 21 mg dose. 14 patch 06/23/2024 07/23/2024 Active Start: 02-12-2024 End: 08-04-2024 apply 1 dose transdermal route every twenty-four hours nicotine (Nicoderm CQ) 21 MG/24HR patch Indications: Tobacco dependency Place 1 patch over 24 hours on the skin 1 (one) time each day at the same time 42 patch 06/23/2024 08/04/2024 Active omeprazole 20 mg delayed release oral capsule (19 sources) Proton Pump Inhibitor Start: 10-16-2021 take 20 mg by mouth once daily Omeprazole Active 20 MG PO Daily December 09, 2023 12:00am 24 hr paliperidone 3 mg extended release oral tablet (19 sources) Atypical Antipsychotic Start: 12-09-2023 take 3 [...] Jun, Active topiramate 100 mg oral tablet (20 sources) Start: 01-19-2024 End: 09-21-2024 take 1 tablet by mouth in the morning topiramate (Topamax) 100 MG tablet Indications: Bipolar 2 disorder (CMS/HCC) , Migraine without aura and without status migrainosus, not intractable (CMS/HCC) Take 1 tablet (100 mg) by mouth in the morning and 1 tablet (100 mg) before bedtime. 180 tablet 06/23/2024 09/21/2024 Active Start: 09-23-2017 End: 12-09-2023 take 1 tablet by mouth once daily Topiramate (Topamax) 100 mg tablet Active 100 MG PO Daily December 09, 2023 12:00am Topamax Active take 1 capsule by mo ut three times daily Topiramate 100 MG 1 capsule Oral TID for 30 Active traZODone hydrochloride 100 mg oral tablet (20 sources) Serotonin Reuptake Inhibitor Start: 12-09-2023 take [...] 2020 1:00am December 09, 2023 3:31pm Citalopram [place] bromide Active dicyclomine hydrochloride 10 mg oral [...] s ONCE A MONTH Active estrogens, conjugated (alf) 0.625 mg oral tablet (11 sources) Estrogen [...] of anus and rectum] Episodic Anxiety disorders (14 sources) Anxiety; Translations: [Anxiety disorder, unspecified] Onset: 2 08-18-2023 Chronic Asthma (2 sources) Asthma; Translations: [Unspecified asthma, uncomplicated] 10-10-2021 Chronic Chronic kidney disease (20 sources) Chronic kidney disease stage 2; Translations: [Chronic kidney disease, stage 2 (mild)] Onset: 3 06-16-2023 Chronic E Codes: Fall (2 sources) Fall (on) (from) other stairs and steps, initial encounter; Translations: [Fall down stairs] 07-03-2021 Episodic Esophageal disorders (11 sources) Gastroesophageal reflux disease; Translations: [Gastro-esophageal reflux disease without esophagitis] Onset: 2 Resolved: 2 Chronic Essential hypertension (16 sources) Essential hypertension; Translations: [Essential (primary) hypertension] Onset: 3 06-16-2023 Chronic Gastritis and duodenitis (7 sources) Gastritis; Translations: [Gastritis, unspecified, without bleeding] Episodic Gastrointestinal hemorrhage (20 sources) Dark stools; Translations: [Melena] 07-26-2020 Episodic Headache; including migraine (14 sources) Migraine without aura, not refractory ; [...] Fatigue; Translations: [Other fatigue] Episodic Mood disorders (15 sources) Bipolar II disorder; Translations: [Bipolar II [...] Translations: [Benign lipomatous neoplasm, unspecified] Episodic Other bone disease and musculoskeletal deformities (1 source) Osteopenia; Translations: [Other specified disorders of bone density and structure, unspecified site] 05-27-2024 Episodic Other diseases of kidney and ureters [...] Chronic Other nutritional; endocrine; and metabolic disorders (15 sources) Obesity caused by energy imbalance; Translations: [Class 1 obesity due to excess calories without serious comorbidity with body mass index (BMI) of 33.0 to 33.9 in adult] Onset: 4 02-12-2024 Chronic Other nutritional; endocrine; and metabolic disorders (7 sources) Weight loss; Translations: [Abnormal weight loss] Episodic Other screening for suspected conditions (not mental disorders or infectious disease) (20 sources) Ultrasonography of kidney abnormal; Translations: [Abnormal [...] state; Translations: [Asymptomatic menopausal state] 04-28-2024 Episodic Spondylosis; intervertebral disc disorders; other back problems (4 sources) Spasm of back muscles; Translations: [Muscle spasm of back] 06-23-2024 Episodic Sprains and strains (3 sources) Sprain of other ligament of left ankle, initial encounter; Translations: [Sprain of left ankle] Onset: 1 Resolved: 1 Episodic Substance-related disorders (16 sources) Tobacco dependence syndrome; Translations: [Nicotine dependence, unspecified, uncomplicated] Onset: 3 06-16-2023 Chronic Superficial injury; contusion (4 sources) Contusion of lower back; Translations: [Contusion of lower back and pelvis, initial encounter] 07-03-2021 Episodic Unclassified (3 sources) LOW BACK PAIN, UNSPECIFIED; Translations: [LOW BACK PAIN, UNSPECIFIED] Onset: 2 Past or Other Problems Problem Classification Problem Date Documented Da te Episodic/Chronic Allergic reactions (12 sources) Allergy to nut; Translations: [Allergy to [...] GDLNon AGE GDLN ACOG TESTING Note . [facility] Comment on above: TESTS RESULT FLAG UN ITS REF RANGE LAB Clinician Provided Cytology Information Source.............Vagina No. of containers..01 ThinPrep Vial Age Algo ACOG Marisol... FLAG LEGEND: L-Low Normal,H-High Normal,LL-Alert Low,HH-Alert High <-Panic Low,>-Panic High,A-Abnormal,AA-Critical Abnormal Performed at: 01 =[address] [id number] Coby Russell MD, HPV APTIMA Negative Negative [facility] Comment on above: This nucleic acid am plification test detects fourteen high- risk HPV types (16,18,31,33,35,39,45,51,52,56,58,59,66,68) without differentiation. Performed at: =[address] [id number] Fitness/Wellness Director: Coby Russell MD, Phone: [phone] Performed at: [address] [id number] Fitness/Wellness Director: Coby Russell MD, Phone: [phone] IGP, APTIMA HPV, RFX 16/18,45 Note . [facility] Comment on above: TESTS RESULT FLAG UN ITS REF RANGE LAB DIAGNOSIS: 02 NEGATIVE FOR INTRAEPITHELIAL LESION OR MALIGNANCY. Specimen adequacy: 02 Satisfactory for evaluation. Performed by: Deena Crump, Chip Crusher Operator (ASCP) . 02 Note: Note 02 The [...] Low,>-Panic High,A-Abnormal,AA-Critical Abnormal Performed at: [address] [address] Coby Russell MD, [facility] - Chemistry and C hemistry - challengeon 02-21-2024 Albumin [Mass/Vol] 3.6 g/dL 3.4-5.0 [facility] Magnesium [Mass/Vol] 1.7 mg/dL Low 1.8-2.4 [facility] Urate [Mass/Vol] 4.6 mg/dL 2.6-6.0 [facility] Bilirubin Ql (U) Negative NEGATIVE [facility] Glucose (U) [Mass/Vol] Negative NEGATIVE [facility] Ketones Ql (U) Negative NEGATIVE [facility] pH (U) 6.0 [pH] 5.0-9.0 [facility] Specific gravity (U) [Rel density] 1.020 1.005-1.025 [facility] Urobilinogen Qn (U) 0.2 {Jimmy'U}/dL 0.2-1.0 [facility] Laboratory - Specimen inform ationon 02-21-2024 Appearance (U) CLEAR CLEAR [facility] Color (U) LT. YELLOW YELLOW [facility] Laboratory - Urinalysison Leukocyte esterase Test strip Ql (U) Negative NEGATIVE [facility] Nitrite Ql (U) Negative NEGATIVE [facility] Protein (U) [Mass/Vol] 13.0 mg/dL High <=11.9 [facility] Protein Ql (U) Negative NEG/TRACE [facility] Microalbumin [Mass/volume] i n Urineon 02-21-2024 Albumin DL <= 20 mg/L (U) [Mass/Vol] mg/dL <=30.0 [facility] No Panel Informationon 02-20 25-Hydroxy Vitamin D Total 54.3 ng/mL [facility] Comment on above: <20 ng/mL Vit D defi cient20-<30 ng/mL Vit D [id number] ng/mL Vit D sufficient>100 ng/mL Potential Toxicity Parathyroid Hormone (Intact) 28 pg/mL 15-65 [facility] Comment on above: Performed at: [place] [id number] Director: Davion Noonan PhD, Phone: [phone] Phosphorus Level 4.0 mg/dL 2.6-4.7 [facility] Urine Occult Blood TRACE-I NEGATIVE [facility] Urine Random Creatinine 148.15 mg/dL 20.00-300.00 [facility] Protein/Creatinine (U) [Rati o]on 02-21-2024 Urine Protein/Creatinine Ratio 0.09 [facility] ALL BUNon 08-22-2023 Urea nitrogen [Mass/Vol] 21.0 mg/dL High 7.0 - 18.0 mg/dL [facility] No Panel Informationon 08-22 Interpretation and review of laboratory results Abnormal [facility] Healthcar e [facility] CREATININEon 08-22-2023 Creatinine [Mass/Vol] 1.48 mg/dL High 0.55 - 1.02 mg/dL [facility] GFR/1.73 sq M.predicted CKD-EPI (S/P/Bld) [Vol rate/Area] 44 Low 60 - PINF [facility] EGFR-NON AF MARSHALLESE 36 Low 60 - PINF [facility] XR LSPINE MIN 4 VIEWSon 05-15 [...] by: JAY HUFF Date: 2022-06-07 12:11 Normal [facility] B-Type Natriuretic Peptideon 10-10-2021 Natriuretic peptide B (Bld) [Mass/Vol] 64.0 pg/mL Normal 5-100 [facility] Comment on above: Result Comment: PERF ORMED BY: [place] [address] PATHOLOGIST VEGETABLE INSPECTOR SHIMA SY M.D. Performed By: #### C K, CKMB, CBC, BMP, BNP #### [address] Basic Metabolic Panelon 09-13 Calcium [Mass/Vol] 9.3 mg/dL Normal 8.2-10.2 [facility] Comment on above: Performed By: #### C K, CKMB, CBC, BMP, BNP #### [facility] [address] [place] [address] [place] Chloride [Moles/Vol] 104 mmol/L Normal 95-114 [facility] Comment on above: Performed By: #### C K, CKMB, CBC, BMP, BNP #### [facility] [address] CO2 [Moles/Vol] 19.9 mmol/L Low 22.0-30.0 [facility] Comment on above: Performed By: #### C K, CKMB, CBC, BMP, BNP #### [facility] [address] Creatinine [Mass/Vol] 1.27 mg/dL High 0.44-1.03 [facility] Comment on above: Performed By: #### C K, CKMB, CBC, BMP, BNP #### [facility] [address] Creatinine Clr Calc Pharmacy 45.75 [facility] Comment on above: Result Comment: PERF ORMED BY: [place] [address] PATHOLOGIST VEGETABLE INSPECTOR SHIMA SY M.D. Performed By: #### C K, CKMB, CBC, BMP, BNP #### [facility] [address] Estimated GFR ( Demetra 52 [facility] Comment on above: Result Comment: GFR estimated reference range: According to KDOQI guidelines, <60 ml/min/1.73m2 is sufficient to diagnose a patient with chronic kidney disease. Performed By: #### C K, CKMB, CBC, BMP, BNP #### [facility] [address] Estimated GFR (Non- Am 43 [facility] Comment on above: Performed By: #### C K, CKMB, CBC, BMP, BNP #### [address] Glucose [Mass/Vol] 96 mg/dL Normal 70-100 [facility] Comment on above: Result Comment: [place] Glucose Reference Range is dependent on time and content of last meal. Glucose of more than 200 mg/dL in a nonstressed, ambulatory subject supports the diagnosis of Diabetes Mellitus. ADA recommended reference range Performed By: #### C K, CKMB, CBC, BMP, BNP #### [address] Potassium [Moles/Vol] 3.7 mmol/L Normal 3.5-5.1 [facility] Comment on above: Performed By: #### C K, CKMB, CBC, BMP, BNP #### [facility] [address] Sodium [Moles/Vol] 135 mmol/L Low 136-146 [facility] Comment on above: Performed By: #### C K, CKMB, CBC, BMP, BNP #### [facility] [address] [place] [id number] [place] Urea nitrogen [Mass/Vol] 17 mg/dL Normal 9-23 [facility] Comment on above: Performed By: #### C K, CKMB, CBC, BMP, BNP #### [facility] [address] [place] [id number] [facility] COVID-19 Antigenon 2 COVID-19 Antigen Healthcare Worker?: [...] its performance Bella Disclaimer characteristic determined by [employer] and Bella Disclaimer validated at [facility]. This Bella Disclaimer test has not [...] is terminated or revoked sooner. PERFORMED BY: [place] [address] PATHOLOGIST VEGETABLE INSPECTOR SHIMA SY M.D. Normal [facility] Comment on above: Performed By: #### F CARLA, COVID-19 BELLA, SOFIANEG #### [address] Complete Blood Count Auto Di ffon 10-10-2021 Basophils (Bld) [#/Vol] 0.1 10*3/uL Normal 0.0-0.2 [facility] Comment on above: Result Comment: PERF ORMED BY: [place] [address] PATHOLOGIST VEGETABLE INSPECTOR SHIMA SY M.D. Performed By: #### C K, CKMB, CBC, BMP, BNP #### [address] Basophils/100 WBC (Bld) 1.4 % Normal . [facility] Comment on above: Performed By: #### C K, CKMB, CBC, BMP, BNP #### [address] Eosinophils (Bld) [#/Vol] 0.2 10*3/uL Normal 0.0-0.45 [facility] Comment on above: Performed By: #### C K, CKMB, CBC, BMP, BNP #### [address] Eosinophils/100 WBC (Bld) 2.3 % Normal . [facility] Comment on above: Performed By: #### C K, CKMB, CBC, BMP, BNP #### [address] Erythrocyte distribution width (RBC) [Ratio] 13.2 % Normal 11.9-15.3 [facility] Comment on above: Performed By: #### C K, CKMB, CBC, BMP, BNP #### [address] Hematocrit (Bld) [Volume fraction] 41.5 % Normal 34.0-46.4 [facility] Comment on above: Performed By: #### C K, CKMB, CBC, BMP, BNP #### [address] Hemoglobin (Bld) [Mass/Vol] 13.8 g/dL Normal 11.8-15.4 [facility] Comment on above: Performed By: #### C K, CKMB, CBC, BMP, BNP #### [address] Lymphocytes (Bld) [#/Vol] 3.6 10*3/uL Normal 1.00-4.8 [facility] Comment on above: Performed By: #### C K, CKMB, CBC, BMP, BNP #### [address] Lymphocytes/100 WBC (Bld) 39.0 % Normal . [facility] Comment on above: Performed By: #### C K, CKMB, CBC, BMP, BNP #### [address] MCH (RBC) [Entitic mass] 30.7 pg Normal 24.7-34.3 [facility] Comment on above: Performed By: #### C K, CKMB, CBC, BMP, BNP #### [address] MCV (RBC) [Entitic vol] 91.9 fL Normal 80-100 [facility] Comment on above: Performed By: #### C K, CKMB, CBC, BMP, BNP #### [address] Mean Corpuscular HGB Conc 33.4 g/dL Normal 32.0-35.0 [facility] Comment on above: Performed By: #### C K, CKMB, CBC, BMP, BNP #### [address] Monocytes (Bld) [#/Vol] 0.8 10*3/uL Normal 0.0-0.8 [facility] [facility] Comment on above: Performed By: #### C K, CKMB, CBC, BMP, BNP #### [address] Monocytes/100 WBC (Bld) 9.0 % Normal . [facility] Comment on above: Performed By: #### C K, CKMB, CBC, BMP, BNP #### [address] Neutrophils (Bld) [#/Vol] 4.4 10*3/uL Normal 1.8-7.7 [facility] Comment on above: Performed By: #### C K, CKMB, CBC, BMP, BNP #### [facility] [address] Neutrophils/100 WBC (Bld) 48.3 % Normal . [facility] Comment on above: Performed By: #### C K, CKMB, CBC, BMP, BNP #### [facility] [address] Nucleated RBC/100 WBC (Bld) [Ratio] 0.1 % Normal 0-0.5 [facility] Comment on above: Performed By: #### C K, CKMB, CBC, BMP, BNP #### [address] Platelet mean volume (Bld) [Entitic vol] 7.0 fL Normal 6.3-10.7 [facility] Comment on above: Performed By: #### C K, CKMB, CBC, BMP, BNP #### [address] Platelets (Bld) [#/Vol] 237 10*3/uL Normal 150-450 [facility] Comment on above: Performed By: #### C K, CKMB, CBC, BMP, BNP #### [address] RBC (Bld) [#/Vol] 4.51 10*6/uL Normal 3.60-5.00 [facility] Comment on above: Performed By: #### C K, CKMB, CBC, BMP, BNP #### [address] WBC (Bld) [#/Vol] 9.1 10*3/uL Normal 4.5-11.0 [facility] Comment on above: Performed By: #### C K, CKMB, CBC, BMP, BNP #### [address] Creatine Kinaseon 10-10-2021 CK [Catalytic activity/Vol] 69 U/L Normal 22-269 [facility] Comment on above: Performed By: #### C K, CKMB, CBC, BMP, BNP #### [facility] [address] [place] [address] [place] Creatinine Kinase MBon 10-10 CK.MB [Mass/Vol] 3.1 ng/mL Normal 0.6-6.3 [facility] Comment on above: Performed By: #### F CARLA, COVID-19 BELLA, SOFIANEG #### [facility] [address] CKMB Relative Index 4.4 % High 0.00-2.50 [facility] Comment on above: Result Comment: PERF ORMED BY: [place] [address] PATHOLOGIST VEGETABLE INSPECTOR SHIMA SY M.D. Performed By: #### F CARLA, COVID-19 BELLA, SOFIANEG #### [facility] [address] ECG 12 lead ECGon 10-10-2021 ECG 12 lead ECG [facility] [place] [address] [place] [address] Electrocardiograph Report Signed Patient: Мария Roman MR#: [id number] : 1965 Acct:[id number] Age/Sex: 55 / F ADM Date: 10/10/21 Loc: ER Room: Type: [facility] ER Attending Dr: Ordering Provider: Abimael [...] leads Confirmed by ABIMAEL PARKS DO ([id number]), market editor Trent Garay ([id number]) on 10/11/2021 11:15:22 AM Referred By: Electronically Signed By:ABIMAEL PARKS DO Transcribed By: MUS Signed By Abimael Parks DO [id number] [facility] Influenza A and B Antigenon [...] samples is recommended. Note 7 PERFORMED BY: [place] [address] PATHOLOGIST VEGETABLE INSPECTOR SHIMA SY M.D. [facility] Comment on above: Performed By: #### Conchis AGUIRRE, COVID-19 BELLA, SOFIANEG #### [place] [id number] [facility] Bella Ag Negativeon 10-11-19 22 Belal Ag Negative Negative Normal Negative [facility] Comment on above: Result Comment: This is a duplicate Bella SARS Antigen (BLAYNE) result to be used for statistical tracking purpose only. PERFORMED BY: [place] [address] PATHOLOGIST VEGETABLE INSPECTOR SHIMA SY M.D. Performed By: #### Conchis AGUIRRE, COVID-19 BELLA, SOFIANEG #### [place] [id number] [place] Troponin I High Sensitivityo n 10-10-2021 Troponin I High Sensitivity 12 pg/mL Normal 0-15 [facility] Comment on above: Result Comment: PERF ORMED BY: [place] [address] PATHOLOGIST VEGETABLE INSPECTOR SHIMA SY M.D. Performed By: #### H S TROP #### [address] [place] [address] [facility] XR chest 1V portableon 10-10 XR chest 1V portable [facility] [place] [address] [place] [address] XRay Report Signed Patient: Мария Roman MR#: [id number] : 1965 Acct:[id number] Age/Sex: 55 / F ADM Date: 10/10/21 Loc: ER Room: Type: [facility] ER Attending Dr: Ordering Provider: Abimael [...] David Walker M.D.10/10/2021 7:52 PM Dictation Location: [place] [address] Transcribed By: [facility] 10/10/211951 Dictated By: David Walker II, MD 10/10/211949 Signed By: 10/10/211951 [facility] XR ANKLE LEFT 3+ VIEWS [...] bodies. IMPRESSION: No obvious fractures or dislocations. KKV/rlc Workstation ID: [id number] Dictated by: LOULOU TREVINO on FriJul 29, 2021 8:55:54 PM EST Transcribed by: DARYA SCHILLING on FriJul 29, 2021 8:57:24 PM EST Finalized by: LOULOU TREVINO on FriJul 29, 2021 10:03:27 PM EST [facility] Comment on above: Order Comment: Injur y/Trauma or Illness?:Injury/Trauma How long have you had these symptoms (acute/chronic)?:Acute Reason for exam?:pain History of cancer?:u Surgeries, chemotherapy, or radiation?:u Type of Exam?:Initial Mechanism of injury?:fall Vital Signs Date Time Vital Sign Value Performing Clinician Facility 06-23-2024 16:55-0500 Body height 167.6 cm Ursula Berrytrick PRIVATE DETECTIVE Work Phone: [facility] 06-23-2024 16:55-0500 Body mass index (BMI) [Ratio] 31.64 kg/m2 Ursula Garza PRIVATE DETECTIVE Work Phone: [facility] 06-23-2024 16:55-0500 Body temperature 97.7 [degF] Ursula Garza PRIVATE DETECTIVE Work Phone: [facility] 06-23-2024 16:55-0500 Body weight 88.91 kg Ursula Garza PRIVATE DETECTIVE Work Phone: [facility] 06-23-2024 16:55-0500 Diastolic blood pressure 84 mm[Hg] Ursula Garza PRIVATE DETECTIVE Work Phone: [facility] 06-23-2024 16:55-0500 Heart rate 111 /min Ursula Garza PRIVATE DETECTIVE Work Phone: [facility] 06-23-2024 16:55-0500 Respiratory rate 16 /min Ursula Garza PRIVATE DETECTIVE Work Phone: [facility] 06-23-2024 16:55-0500 SaO2% (BldA) [Mass fraction] 97 % Ursula Garza PRIVATE DETECTIVE Work Phone: [facility] 06-23-2024 16:55-0500 Systolic blood pressure 122 mm[Hg] Ursula Garza PRIVATE DETECTIVE Work Phone: [facility] 04-28-2024 15:13-0400 Body mass index (BMI) [Ratio] 31.13 kg/m2 Danya Najera PA Work Phone: [facility] 04-28-2024 15:13-0400 Body weight 88.81 kg Danya Curry PA Work Phone: [facility] 04-28-2024 15:13-0400 Diastolic blood pressure 72 mm[Hg] Danya Curry PA Work Phone: [facility] 04-28-2024 15:13-0400 Systolic blood pressure 120 mm[Hg] Danya Laresey PA Work Phone: [facility] 03-24-2024 16:55-0400 Body height 168.9 cm Ursula Garza PRIVATE DETECTIVE Work Phone: [facility] 03-24-2024 16:55-0400 Body mass index (BMI) [Ratio] 31.32 kg/m2 Ursula Garza PRIVATE DETECTIVE Work Phone: [facility] 03-24-2024 16:55-0400 Body temperature 96.8 [degF] Ursula Garza PRIVATE DETECTIVE Work Phone: [facility] 03-24-2024 16:55-0400 Body weight 89.36 kg Ursula Garza PRIVATE DETECTIVE Work Phone: [facility] 03-24-2024 16:55-0400 Diastolic blood pressure 80 mm[Hg] Ursula Garza PRIVATE DETECTIVE Work Phone: [facility] 03-24-2024 16:55-0400 Heart rate 102 /min Ursula Garza PRIVATE DETECTIVE Work Phone: [facility] Comment on above: 96% O2 03-24-2024 16:55-0400 Systolic blood pressure 108 mm[Hg] Ursula Garza JAIME Work Phone: [facility] 03-17-2024 16:24-0400 Body height 168.91 cm MD Chinmay Manning Work Phone: [facility] 03-17-2024 16:24-0400 Body mass index (BMI) [Ratio] 31.8 kg/m2 MD Chimnay Manning Work Phone: [facility] 03-17-2024 16:24-0400 Body temperature 97.8 [degF] MD Chinmay Manning Work Phone: [facility] 03-17-2024 16:24-0400 Body weight 90.88 kg MD Chinmay Manning Work Phone: [facility] 03-17-2024 16:24-0400 Diastolic blood pressure 81 mm[Hg] MD Chinmay Manning Work Phone: [facility] 03-17-2024 16:24-0400 Heart rate 97 /min MD Chinmay Manning Work Phone: [facility] 03-17-2024 16:24-0400 Respiratory rate 18 /min MD Chinmay Manning Work Phone: [facility] 03-17-2024 16:24-0400 SaO2% (BldA) [Mass fraction] 94 % MD Chinmay Manning Work Phone: [facility] 03-17-2024 16:24-0400 Systolic blood pressure 129 mm[Hg] MD Chinmay Manning Work Phone: [facility] 12-09-2023 15:25-0400 Body height 168.91 cm MD Chinmay Manning Work Phone: [facility] 12-09-2023 15:25-0400 Body mass index (BMI) [Ratio] 32.3 kg/m2 MD Chinmay Manning Work Phone: [facility] 12-09-2023 15:25-0400 Body temperature 97.3 [degF] MD Chinmay Manning Work Phone: [facility] 12-09-2023 15:25-0400 Body weight 92.24 kg MD Chinmay Manning Work Phone: [facility] 12-09-2023 15:25-0400 Diastolic blood pressure 72 mm[Hg] MD Chinmay Manning Work Phone: [facility] 12-09-2023 15:25-0400 Heart rate 113 /min MD Chinmay Manning Work Phone: [facility] 12-09-2023 15:25-0400 Respiratory rate 16 /min MD Chinmay Manning Work Phone: [facility] 12-09-2023 15:25-0400 SaO2% (BldA) [Mass fraction] 96 % MD Chinmay Manning Work Phone: [facility] 12-09-2023 15:25-0400 Systolic blood pressure 112 mm[Hg] MD Chinmay Manning Work Phone: [facility] 01-17-2022 16:30-0400 Body height 168.91 cm Bahman Meneses Other [facility] Other 01-17-2022 16:30-0400 Body mass index (BMI) [Ratio] 21.62 kg/m2 Bahman Meneses Other [facility] Other 01-17-2022 16:30-0400 Body weight 61.69 kg Bahman Meneses Other [facility] Other 10-16-2021 16:45-0400 Body height 168.91 cm Bahman Meneses Other [facility] Other 10-16-2021 16:45-0400 Body mass index (BMI) [Ratio] 20.98 kg/m2 Bahman Meneses Other [facility] Other 10-16-2021 16:45-0400 Body weight 59.88 kg Bahman Meneses Other [facility] Other 07-12-2021 11:05-0500 Body height 168.91 cm Christiana Ginty Other [facility] Other 07-12-2021 11:05-0500 Body temperature 97.5 [degF] Christiana Ginty Other [facility] Other 07-12-2021 11:05-0500 Diastolic blood pressure 106 mm[Hg] Christiana Ginty Other [facility] Other 07-12-2021 11:05-0500 Respiratory rate 18 /min Christiana Ginty Other [facility] Other 07-12-2021 11:05-0500 SaO2% (BldA) [Mass fraction] 98 % Christiana Ginty Other [facility] Other 07-12-2021 11:05-0500 Systolic blood pressure 153 mm[Hg] Christiana Ginty Other [facility] Other 07-04-2021 12:00-0500 Body height 168.91 cm Justin Che II Other [facility] Other 07-04-2021 12:00-0500 Body mass index (BMI) [Ratio] 17.88 kg/m2 Justin Che II Other [facility] Other 07-04-2021 12:00-0500 Body weight 51.03 kg Justin Che II Other [facility] Other Encounters Encounter Date Encounter Type Care Provider Facility Start: 06-23-2024 End: 06-23-2024 Office outpatient visit 15 minutes Ursula Garza PRIVATE DETECTIVE Work Phone: [facility] Comment on above: Primary hypertension (CMS/HCC) (Primary Dx); Stage 3a chronic kidney disease (HCC) (CMS/HCC); Class 1 obesity due to excess calories without serious comorbidity with body mass index (BMI) of 33.0 to 33.9 in adult; Screening for hyperlipidemia; Tobacco dependency; Bipolar 2 disorder (CMS/HCC); Migraine without aura and without status migrainosus, not intractable (CMS/HCC); Back spasm Start: 06-23-2024 End: 06-23-2024 ambulatory URSULA THEODOREK Not Available Start: 06-23-2024 End: 06-23-2024 Bamboo flowsheet Ursula Theodorek PRIVATE DETECTIVE Work Phone: [facility] Start: 06-23-2024 End: 06-23-2024 Bamboo flowsheet Ursula Armijopatrick PRIVATE DETECTIVE Work Phone: [facility] Start: 05-27-2024 End: 05-27-2024 Telephone encounter Danya CHATTERJEE Work Phone: [facility] Start: 04-28-2024 End: 04-28-2024 Patient encounter procedure [...] External Department Unsolicited Start: 03-24-2024 End: 03-24-2024 Office outpatient visit 15 minutes Ursula Garza PRIVATE DETECTIVE Work Phone: [facility] Comment on above: Primary hypertension (CMS/HCC) (Primary Dx); Stage 3a chronic kidney disease (HCC) (CMS/HCC); Class 1 obesity due to excess calories without serious comorbidity with body mass index (BMI) of 33.0 to 33.9 in adult; Tobacco dependency; Bipolar 2 disorder (CMS/HCC) Start: 03-24-2024 End: 03-24-2024 ambulatory URSULA BERRYTRICK Not Available Start: 03-24-2024 End: 03-24-2024 Bamboo flowsheet Ursula Armijopatrick PRIVATE DETECTIVE Work Phone: [facility] Start: 03-24-2024 End: 03-24-2024 Bamboo flowsheet Ursula Wallzpatrick PRIVATE DETECTIVE Work Phone: [facility] Start: 03-17-2024 End: 03-17-2024 ambulatory MD Chinmay Manning Work Phone: [facility] Work Phone: Start: 03-17-2024 End: 03-17-2024 Patient encounter procedure MD Chinmay Manning Work Phone: [facility] [place] Work Phone: Start: 02-21-2024 Non-patient / Non-visit MD Chinmay Manning Work Phone: [facility] [employer] Work Phone: Start: 02-12-2024 End: 02-12-2024 ambulatory SHAIKH CECILIO Not Available Start: 12-26-2023 Registered Recurring MD Jeff Manning Work Phone: [facility] [employer] Start: 12-09-2023 End: 12-09-2023 ambulatory MD Chinmay Manning Work Phone: [facility] Work Phone: Start: 12-09-2023 End: 12-09-2023 Patient encounter procedure MD Chinmay Manning Work Phone: [facility] [place] Work Phone: Start: 11-17-2023 End: 11-17-2023 ambulatory SHAIKH CECILIO Not Available Start: 09-25-2023 Registered Recurring MD Jeff Manning Work Phone: [facility] [employer] Start: 08-22-2023 End: 08-22-2023 ambulatory Jorge Luis Barajas Other [facility] [employer] Other Start: 08-22-2023 Clinisync Result Encounter Shaikh Cecilio WALKER Work Phone: [facility] Unsolicited Start: 08-22-2023 Clinisync Result Encounter Shaikh Cecilio WALKER Work Phone: [facility] Unsolicited Start: 08-22-2023 Telephone encounter Jorge Luis Browerdir [facility] [place] Start: 08-18-2023 End: 08-18-2023 ambulatory SHAIKH CECILIO Not Available Start: 07-02-2022 End: 07-03-2022 ambulatory BECCA THOMAS Facility:[facility] Start: 06-07-2022 End: 06-08-2022 ambulatory ETHAN JORGE L Facility:[facility] Start: 01-28-2022 End: 01-28-2022 ambulatory Bahman Meneses Other [facility] Other Start: 01-28-2022 Telephone encounter Bahman vasquez [facility] Start: 01-17-2022 End: 01-17-2022 ambulatory Bahman Meneses Other [facility] Other Start: 01-17-2022 Office outpatient visit 15 minutes Bahman Meneses [facility] Start: 11-09-2021 End: 11-09-2021 ambulatory Bahman Meneses Other [facility] Other Start: 11-09-2021 Telephone encounter Bahman vasquez [facility] Start: 10-16-2021 End: 10-16-2021 ambulatory Bahman Meneses Other [facility] Other Start: 10-16-2021 Office outpatient visit 15 minutes Bahman Meneses [facility] Start: 10-10-2021 End: 10-11-2021 Emergency department patient visit Ethan Licona Facility:[facility] Start: 07-28-2021 End: 08-04-2021 Evaluation and management of inpatient [facility] Start: 07-12-2021 End: 07-12-2021 ambulatory Christiana Ginty Other [facility] Other Start: 07-12-2021 Office outpatient visit 15 minutes Christiana Ginty [facility] Start: 07-04-2021 End: 07-04-2021 ambulatory Justin Che II Other [facility] Other Start: 07-04-2021 Office outpatient ne w 30 minutes Justin Che II [facility] Procedures Date Procedure Procedure Detail Performing Clinician Start: 05-14-2024 Mammography Danya CHATTERJEE Work Phone: Start: 04-28-2024 IGP,APTIMA HPV,AGE GDLN Danya CHATTERJEE Work Phone: Start: 08-22-2023 ALL BUN Shaikh Jose hernandez MD Work Phone: Start: 08-22-2023 [facility] CREATININE Shaikh Conchis pinto MD Work Phone: Plan of Treatment Date Care Activity Detail Author Start: 05-14-2025 Screening for malignant neoplasm of breast Mammogram [facility] Start: 05-02-2025 End: 05-02-2025 Patient encounter procedure 05/02/2025 3:00 PM EDT Office Visit [facility] [address] [place] [phone] Danya Najera PA [address] [place] [address] [facility] Start: 06-23-2024 End: 06-23-2024 Patient encounter procedure [facility] Comment on above: Arrived Start: 04-28-2024 End: 04-28-2024 Patient encounter procedure 04/28/2024 3:00 PM EDT Office Visit [facility] [address] [place] [phone] Danya Najera PA [address] [place] [address] Arrived [facility] Comment on above: Arrived Start: 04-28-2024 End: 04-28-2025 DXA Skeletal system Views for bone density DEXA bone density Imaging Routine Postmenopausal state Expected: 04/28/2024 (Approximate), Expires: 04/28/2025 [facility] Comment on above: Expected: 04/28/2024 (Approximate), Expires: 04/28/2025 Start: 04-28-2024 End: 06-28-2025 MG Breast - bilateral Screening Bilateral screening mammogram Imaging Routine Breast cancer screening by mammogram Expected: 04/28/2024, Expires: 06/28/2025 [facility] Work Phone: Comment on above: Expected: 04/28/2024 , Expires: 06/28/2025 Start: 03-24-2024 End: 03-24-2024 Patient encounter procedure 03/24/2024 5:00 PM EDT Office Visit [facility] [address] [place] [phone] Ursula Garza NP [address] [place] [phone] Arrived [facility] Comment on above: Arrived Start: 03-14-2024 Influenza vaccination Influenza Vacc ine (#1) [facility] Start: 11-17-2023 End: 11-17-2023 Patient encounter procedure 11/17/2023 5:00 PM EDT Office Visit [facility] [address] [place] [phone] Shaikh Hernandes MD [address] [place] [phone] [facility] Start: 09-12-2023 Screening for malignant neoplasm of breast Mammogram [facility] Comment on above: Postponed from 12/07 (Insurance / Financial) Start: 03-14-2023 Influenza vaccination Influenza Vacc ine (#1) [facility] Start: 2003 Screening for malignant neoplasm of breast Mammogram [facility] Start: 12-07-1993 Screening for malignant neoplasm of cervix [facility] Start: 12-07-1984 Screening for malignant neoplasm of cervix Pap Smear [facility] Start: 1965 Medicare Annual Wellness (AWV) Medicare Annual Wellness (AWV) [facility] Start: 1965 Screening for malignant neoplasm of colon [facility] Renal function 1999 panel - Serum or Plasma [facility] Renal function 1999 panel - Serum or Plasma [facility] THIN PREP TIS PAP AN D HR HPV DNA THIN PREP TIS PAP AND HR HPV DNA Pathology and Cytology Routine Well woman exam with routine gynecological exam Ordered: 04/28/2024 [facility] Comment on above: Ordered: 04/28/2024 [facility] Immunizations Immunization Date Immunization Notes Care Provider Fa [facility] 07-12-2021 tetanus and diphther ia toxoids, adsorbed, preservative free, for adult use (5 Lf of tetanus toxoid and 2 Lf of diphtheria toxoid) Christiana Lazaro Other [facility] Other Payers Date Payer Category Payer Unknown [id number] 2022 [facility] er [id number] 2022 Unknown [id number] 2022 Unknown [id number] 2021 Medicare [id number] 2021 Medicare (Managed Care) [employer] SHENA ROBISON [id number] 2021 Unknown [id number] 1965 Unknown [id number]. 2.903 1965 Unknown [id number] [id number]. 2.593 1965 Unknown [id number] [id number]. 2.593 1965 Unknown [id number] [id number]. 2.1258 1965 Unknown [id number] [id number]. 2.9 1965 Unknown [id number] [id number]. 2.1258 1965 Unknown [id number] [id number]. 2.9 1965 Unknown [id number] [id number]. 2.1258 1965 Unknown [id number] [id number]. 2.1259 1959 Unknown [id number] Medicare [id number] Self-pay Self Pay [id number] Social History Date Type Detail Facility Unknown if ever smoked [facility] [employer] Other Start: 08-18-2023 End: 02-12-2024 Sex Assigned At [facility] [employer] Other Start: 06-16-2023 End: 02-12-2024 Tobacco smoking status WAIS Smokes tobacco daily [facility] Start: 07-14-1983 History of tobacco use Cigarette Smo ker [facility] Start: 06-16-2023 End: 02-12-2024 Cigarettes smoked current (pack per day) - Reported 0.5 [facility] Start: 06-16-2023 End: 02-12-2024 Tobacco use and exposure Smokeless tobacco non-user [facility] Start: 08-18-2023 End: 02-12-2024 Alcohol intake Lifetime non-drinker (finding) [facility] Start: 1965 Sex Assigned At Not on file N [facility] Start: 12-09-2023 Tobacco smoking stat [facility] Smoker (finding) [facility] Start: 1965 Sex Assigned At Female F [facility] Procedure Code Equipment Code Equipment Origin al Text Equipment Identifier Dates Capsule endoscopy, for patency of lumen evaluation Video capsule endoscopy system [id number] [facility] Start: 08-16-2019 Clinical Notes 04-08-2014 to 06-23-2024 Ursula Garza NP - 06/23/2024 5:14 PM Viktor Garza NP - 06/23/2024 5:11 PM Viktor Garza NP - 06/23/2024 5:11 PM Viktor Garza NP - 06/23/2024 5:10 PM EST Note Date & Type Note Facility 06-23-2024 History of Presen t illness Narrative Associated Problem(s): Tobacco dependency Reordered nicotine patches. Smoking cessation counseling provided. Associated Problem(s): Class 1 obesity due to excess calories without serious comorbidity with body mass index (BMI) of 33.0 to 33.9 in adult Discussed with patient their BMI (actual, verses recommended). We have also discussed lifestyle modifications: attempts to perform physical activity as chronic conditions allow, also to monitor dietary intake: increasing protein/fruits/veggies and lowering carb intake (unless contraindicated). Limit sodas, juices, and sugary drinks. Also discussed oral medications that can be utilized for weight loss, as well as surgical options for weight loss. Associated Problem(s): Stage 3a chronic kidney disease (HCC) (CMS/HCC) Follows closely with Nephrology. Avoid NSAIDS, Nephrotoxic agents. Most recent creatinine 1.60 eGFR: 33 Associated Problem(s): Screening for hyperlipidemia Currently not managed with any medications.Dietary and lifestyle modifications implemented. Triglycerides elevated, pt adamant on not starting medications. Will recheck in July. Associated Problem(s): Primary hypertension (CMS/HCC) Currently taking losartan 100mg Checks BP at home; Averages are less than 120's/80'; Denies orthostatic changes, dizziness, cough, shortness of breath, swelling in extremities. Continue current regimen. Given BP log, advised pt to record BP and bring log back with them to next visit. Images from the original note were not included. Subjective Patient ID: [email or web address] Roman is a 58 y.o. female who presents for Follow-up. HPI Specialists: Nephrology- Dr. Dominguez Neurology- [facility] HTN: Currently taking losartan 100mg Checks BP at home; Averages are less than 120's/80'; Denies orthostatic changes, dizziness, cough, shortness of breath, swelling in extremities. Continue current regimen. Given BP log, advised pt to record BP and bring log back with them to next visit. HLD: Currently not managed with any medications.Dietary and lifestyle modifications implemented. Triglycerides elevated, pt adamant on not starting medications. Will recheck in July. Component Ref Range & Units 4 mo ago (02/21/24) 4 mo ago (02/21/24) 4 mo ago (02/21/24) 4 mo ago (02/21/24) 4 mo ago (02/21/24) 4 mo ago (02/21/24) 4 mo ago (02/21/24) TRIGLYCERIDES <=150 mg/dL 242 High 140 R 3.6 R 1.7 Low R 4.0 R 13.0 High R LT. YELLOW R CHOLESTEROL <=200 mg/dL 191 3.7 R 148.15 R CLEAR R HDL CHOLESTEROL 40 - 60 mg/dL 37 Low 18.7 R 0.09 R 1.020 R Comment: > or =60 mg/dl - LOW CARDIOVASCULAR RISK <40 mg/dl - HIGH CARDIOVASCULAR RISK LDL CHOLESTEROL CALCULATED mg/dL 106.0 107 High R 6.0 R Comment: <100 mg/dl OPTIMAL 100-129 mg/dl NEAR OR ABOVE OPTIMAL 130-159 mg/dl BORDERLINE HIGH 160-189 mg/dl HIGH >190 mg/dl VERY HIGH VLDL CHOLESTEROL mg/dL 48.4 0.3 R NEGATIVE R CHOL HDL RATIO 5.2 16 R NEGATIVE R Comment: 3.3 - 4.4 LOW RISK 4.4 - 7.1 AVERAGE RISK 7.1 - 11.0 MODERATE RISK >11.0 HIGH RISK ALANINE AMINOTRANSFERASE 18 R NEGATIVE R ALKALINE PHOSPHATASE 136 High R NEGATIVE R TOTAL PROTEIN 7.2 R TRACE-I R ALBUMIN LEVEL 3.5 R NEGATIVE R ALBUMIN GLOBULIN RATIO 0.9 0.2 R LEUKOCYTE ESTERASE URINE NEGATIVE R Resulting Agency [facility] CKD: Follows closely with Nephrology. Avoid NSAIDS, Nephrotoxic agents. Most recent creatinine 1.60 eGFR: 33 Review of Systems Constitutional: Negative for activity change, appetite change, chills, diaphoresis, fatigue, fever and unexpected weight change. HENT: Negative for congestion, ear pain, rhinorrhea, sinus pressure, sinus pain, sneezing, sore throat, trouble swallowing and voice change. Eyes: Negative for visual disturbance. Respiratory: Negative for cough, chest tightness, shortness of breath and wheezing. Cardiovascular: Negative for chest pain, palpitations and leg swelling. Gastrointestinal: Negative for abdominal distention, abdominal pain, blood in stool, constipation, diarrhea and vomiting. Genitourinary: Negative for decreased urine volume, dysuria, flank pain, frequency, hematuria and urgency. Musculoskeletal: Negative for arthralgias, gait problem, joint swelling and myalgias. Skin: Negative for rash. Neurological: Negative for dizziness, tremors, syncope, weakness, light-headedness and headaches. Psychiatric/Behavioral: Negative for decreased concentration and suicidal ideas. The patient is not nervous/anxious. Hematological: Does not bruise/bleed easily. Endocrine: Negative for cold intolerance, heat intolerance, polydipsia, polyphagia and polyuria. Objective Physical Exam Vitals reviewed. Constitutional: Appearance: Normal appearance. HENT: Right Ear: Tympanic membrane normal. Left Ear: Tympanic membrane normal. Nose: Nose normal. Mouth/Throat: Mouth: Mucous membranes are moist. Pharynx: Oropharynx is clear. Eyes: Pupils: Pupils are equal, round, and reactive to light. Cardiovascular: Rate and Rhythm: Normal rate and regular rhythm. Pulses: Normal pulses. Heart sounds: Normal heart sounds. Pulmonary: Effort: Pulmonary effort is normal. Breath sounds: Normal breath sounds. Abdominal: General: Abdomen is flat. Bowel sounds are normal. Palpations: Abdomen is soft. Skin: Capillary Refill: Capillary refill takes less than 2 seconds. Neurological: Mental Status: She is alert and oriented to person, place, and time. Assessment/Plan Problem List Items Addressed This Visit Stage 3a chronic kidney disease (HCC) ([facility]/HCC) Follows closely with Nephrology. Avoid NSAIDS, Nephrotoxic agents. Most recent creatinine 1.60 eGFR: 33 Primary hypertension ([facility]/HCC) - Primary Currently taking losartan 100mg Checks BP at home; Averages are less than 120's/80'; Denies orthostatic changes, dizziness, cough, shortness of breath, swelling in extremities. Continue current regimen. Given BP log, advised pt to record BP and bring log back with them to next visit. Relevant Medications losartan (Cozaar) 100 MG tablet Migraine without aura and without status migrainosus, not intractable (CMS/HCC) Relevant Medications topiramate (Topamax) 100 MG tablet Tobacco dependency Reordered nicotine patches. Smoking cessation counseling provided. Relevant Medications nicotine (Nicoderm CQ) 21 MG/24HR patch nicotine (Nicoderm CQ) 14 MG/24HR patch nicotine (Nicoderm, Step 3) 7 MG/24HR patch Bipolar 2 disorder (CMS/HCC) Relevant Medications topiramate (Topamax) 100 MG tablet Screening for hyperlipidemia Currently not managed with any medications.Dietary and lifestyle modifications implemented. Triglycerides elevated, pt adamant on not starting medications. Will recheck in July. Class 1 obesity due to excess calories without serious comorbidity with body mass index (BMI) of 33.0 to 33.9 in adult Discussed with patient their BMI (actual, verses recommended). We have also discussed lifestyle modifications: attempts to perform physical activity as chronic conditions allow, also to monitor dietary intake: increasing protein/fruits/veggies and lowering carb intake (unless contraindicated). Limit sodas, juices, and sugary drinks. Also discussed oral medications that can be utilized for weight loss, as well as surgical options for weight loss. Back spasm Relevant Medications cyclobenzaprine (Flexeril) 10 MG tablet documented in this encounter [facility] 05-27-2024 Telephone encount er Note Spoke with patient regarding dexa scan results. Patient wishes to start using fosamax weekly. We discussed how to take and issue or concerns regarding acid reflux. Patient would like to try and if necessary may need to change to IV infusion of prolia [facility] 05-27-2024 Miscellaneous Notes Formattin g of this note might be different from the original. Spoke with patient regarding dexa scan results. Patient wishes to start using fosamax weekly. We discussed how to take and issue or concerns regarding acid reflux. Patient would like to try and if necessary may need to change to IV infusion of prolia documented in this encounter [facility] 04-28-2024 History of Presen t illness Narrative Reason for Appointment: Patient ID: Dilshad Roman is a 58 y.o. female who presents [...] [Sulfamethoxazole-Trimethoprim] Bee Pollen Bee Venom Hives Black [place] Flavor Walnuts Ciprofloxacin Hives Codeine Depakote [Valproic Acid] Dilaudid [Hydromorphone] E.E.S. [Erythromycin] Hydrocodone-Acetaminophen Lyrica [Pregabalin] Phenergan [Promethazine] Sulfamethoxazole Hives PROBLEMS Active Ambulatory Problems Diagnosis Date Noted Stage 3a chronic kidney disease (HCC) ([facility]) 06/16/2023 Primary hypertension ([facility]) 06/16/2023 Migraine without aura and without status migrainosus, not intractable ([facility]) 06/16/2023 Tobacco dependency 06/16/2023 Anxiety 07/28/2021 Allergy to nuts (other than peanuts) 08/18/2023 Abnormal renal ultrasound 08/18/2023 Bipolar 2 disorder ([facility]/HCC) 11/17/2023 Screening for hyperlipidemia 02/12/2024 Screening for diabetes mellitus 02/12/2024 Class 1 obesity due to excess calories without serious comorbidity with body mass index (BMI) of 33.0 to 33.9 in adult 02/12/2024 Resolved Ambulatory Problems Diagnosis Date Noted No Resolved Ambulatory Problems Past Medical History: Diagnosis Date Abnormal foot pulse Anxiety and depression ([facility]) Arthritis Atypical migraine ([facility]) Back problem Back spasm Blood pressure elevated without history of HTN Depression with anxiety Dry mouth Elevated serum creatinine History of IBS Hormone replacement therapy (postmenopausal) Irritable bowel syndrome with diarrhea Irritable bowel syndrome with diarrhea Kidney disease Migraine headache ([facility]) Migraines ([facility] Multiple sclerosis ([facility] Multiple sclerosis ([facility]) Onychomycosis PTSD (post-traumatic stress disorder) ([facility]) Stomach problems Urinary frequency Vision impairment HISTORY PAST MEDICAL HISTORY SOCIAL HISTORY Past Medical History: Diagnosis Date Abnormal foot pulse Anxiety and depression ([facility]) Arthritis Atypical migraine ([facility]) Back problem Back spasm Blood pressure elevated without history of HTN Depression with anxiety Dry mouth Elevated serum creatinine History of IBS Hormone replacement therapy (postmenopausal) Irritable bowel syndrome with diarrhea Irritable bowel syndrome with diarrhea Kidney disease Migraine headache ([facility]) Migraines ([facility] Multiple sclerosis ([facility]) Multiple sclerosis ([facility]) Onychomycosis PTSD (post-traumatic stress disorder) ([facility]) Stomach problems Urinary frequency Vision impairment Social [...] APPENDECTOMY 11/13/2010 CHOLECYSTECTOMY 02/24/2023 COLONOSCOPY 2020 HYSTERECTOMY 2020 TONSILLECTOMY REVIEW OF SYSTEMS Review of Systems: [...] nursing note reviewed. Exam conducted with a modeling and simulation analyst present. Vitals: Estimated body mass index is [...] of: SHENA Stubbs documented in this encounter [facility] 03-24-2024 History of Presen t illness Narrative Associated Problem(s): Class 1 obesity due to excess calories without serious comorbidity with body mass index (BMI) of 33.0 to 33.9 in adult Discussed with patient their BMI (actual, verses recommended). We have also discussed lifestyle modifications: attempts to perform physical activity as chronic conditions allow, also to monitor dietary intake: increasing protein/fruits/veggies and lowering carb intake (unless contraindicated). Limit sodas, juices, and sugary drinks. Also discussed oral medications that can be utilized for weight loss, as well as surgical options for weight loss. Associated Problem(s): Bipolar 2 disorder (CMS/HCC) Follows in [place]. Mood is stable, denies depressive symptoms. On topamax, invega and trazodone. Associated Problem(s): Tobacco dependency Using nicotine patches. States it is working ok . Will add lozenges PRN. Associated Problem(s): Primary hypertension (CMS/HCC) Currently taking losartan 100mg Checks BP at home; Averages are 120's/80's; Denies orthostatic changes, dizziness, cough, shortness of breath, swelling in extremities. Continue current regimen. Given BP log, advised pt to record BP and bring log back with them to next visit. Images from the original note were not included. Subjective Patient ID: Dilshad Roman is a 58 y.o. female who presents for Follow-up. HPI 1 month follow-up HTN: Currently taking losartan 100mg Checks BP at home; Averages are 120's/80's; Denies orthostatic changes, dizziness, cough, shortness of breath, swelling in extremities. Continue current regimen. Given BP log, advised pt to record BP and bring log back with them to next visit. HLD: Currently not managed with any medications.Dietary and lifestyle modifications implemented. TRIGLYCERIDES <=150 mg/dL 242 High 140 R 3.6 R 1.7 Low R 4.0 R 13.0 High R LT. YELLOW R CHOLESTEROL <=200 mg/dL 191 3.7 R 148.15 R CLEAR R HDL CHOLESTEROL 40 - 60 mg/dL 37 Low 18.7 R 0.09 R 1.020 R Comment: > or =60 mg/dl - LOW CARDIOVASCULAR RISK <40 mg/dl - HIGH CARDIOVASCULAR RISK LDL CHOLESTEROL CALCULATED mg/dL 106.0 107 High R 6.0 R Comment: <100 mg/dl OPTIMAL 100-129 mg/dl NEAR OR ABOVE OPTIMAL 130-159 mg/dl BORDERLINE HIGH 160-189 mg/dl HIGH >190 mg/dl VERY HIGH VLDL CHOLESTEROL mg/dL 48.4 0.3 R NEGATIVE R CHOL HDL RATIO 5.2 16 R NEGATIVE R Comment: 3.3 - 4.4 LOW RISK 4.4 - 7.1 AVERAGE RISK 7.1 - 11.0 MODERATE RISK >11.0 HIGH RISK ALANINE AMINOTRANSFERASE 18 R NEGATIVE R ALKALINE PHOSPHATASE 136 High R NEGATIVE R TOTAL PROTEIN 7.2 R TRACE-I R ALBUMIN LEVEL 3.5 R NEGATIVE R ALBUMIN GLOBULIN RATIO 0.9 0.2 R LEUKOCYTE ESTERASE URINE NEGATIVE R Review of Systems Constitutional: Negative for activity change, appetite change, chills, diaphoresis, fatigue, fever and unexpected weight change. HENT: Negative for congestion, ear pain, rhinorrhea, sinus pressure, sinus pain, sneezing, sore throat, trouble swallowing and voice change. Eyes: Negative for visual disturbance. Respiratory: Negative for cough, chest tightness, shortness of breath and wheezing. Cardiovascular: Negative for chest pain, palpitations and leg swelling. Gastrointestinal: Negative for abdominal distention, abdominal pain, blood in stool, constipation, diarrhea and vomiting. Genitourinary: Negative for decreased urine volume, dysuria, flank pain, frequency, hematuria and urgency. Musculoskeletal: Negative for arthralgias, gait problem, joint swelling and myalgias. Skin: Negative for rash. Neurological: Negative for dizziness, tremors, syncope, weakness, light-headedness and headaches. Psychiatric/Behavioral: Negative for decreased concentration and suicidal ideas. The patient is not nervous/anxious. Hematological: Does not bruise/bleed easily. Endocrine: Negative for cold intolerance, heat intolerance, polydipsia, polyphagia and polyuria. Objective Physical Exam Vitals reviewed. Constitutional: Appearance: Normal appearance. HENT: Head: Normocephalic and atraumatic. Right Ear: Tympanic membrane normal. Left Ear: Tympanic membrane normal. Nose: Nose normal. Mouth/Throat: Mouth: Mucous membranes are moist. Pharynx: Oropharynx is clear. Eyes: Pupils: Pupils are equal, round, and reactive to light. Cardiovascular: Rate and Rhythm: Normal rate and regular rhythm. Pulses: Normal pulses. Heart sounds: Normal heart sounds. Pulmonary: Effort: Pulmonary effort is normal. Breath sounds: Normal breath sounds. Abdominal: General: Abdomen is flat. Bowel sounds are normal. Palpations: Abdomen is soft. Musculoskeletal: General: Normal range of motion. Cervical back: Normal range of motion. Skin: General: Skin is warm and dry. Capillary Refill: Capillary refill takes less than 2 seconds. Neurological: General: No focal deficit present. Mental Status: She is alert and oriented to person, place, and time. Psychiatric: Mood and Affect: Mood normal. Behavior: Behavior normal. Assessment/Plan Problem List Items Addressed This Visit Stage 3a chronic kidney disease (HCC) (CMS/HCC) Primary hypertension (CMS/HCC) - Primary Currently taking losartan 100mg Checks BP at home; Averages are 120's/80's; Denies orthostatic changes, dizziness, cough, shortness of breath, swelling in extremities. Continue current regimen. Given BP log, advised pt to record BP and bring log back with them to next visit. Tobacco dependency Using nicotine patches. States it is working ok . Will add lozenges PRN. Relevant Medications nicotine polacrilex ([employer] Nicotine Polacrilex) 4 MG lozenge Bipolar 2 disorder (CMS/HCC) Follows in [place]. Mood is stable, denies depressive symptoms. On topamax, invega and trazodone. Class 1 obesity due to excess calories without serious comorbidity with body mass index (BMI) of 33.0 to 33.9 in adult Discussed with patient their BMI (actual, verses recommended). We have also discussed lifestyle modifications: attempts to perform physical activity as chronic conditions allow, also to monitor dietary intake: increasing protein/fruits/veggies and lowering carb intake (unless contraindicated). Limit sodas, juices, and sugary drinks. Also discussed oral medications that can be utilized for weight loss, as well as surgical options for weight loss. documented in this encounter [facility] 03-24-2024 Instructions Ursula Garza NP - 03/24/2024 5:00 PM EDT I would recommend lowering your saturated fat intake (fried foods/fast foods) and increasing your cardiovascular exercise. I would recommend lowering your carbohydrate (bread/sugary food/alcohol) intake to improve your triglycerides. I recommend increasing your dietary intake of poultry, fish, low-fat dairy products, vegetables, fruits, whole grains, legumes, and nuts. Decrease your dietary intake of sodium, sweets, sweetened beverages, and red meats. In addition, increase your exercise to include 150 minutes per week of moderate-intensity, and 75 minutes per week of vigorous aerobic activity documented in this encounter [facility] 01-28-2022 Evaluation note Encounter Date Diagnosis Assessment Notes Jan, GERD (gastroesop hageal reflux disease) (ICD-10 - K21.9) [facility] Other 07-07-2022 Evaluation note* Encounter Date Diagnosis Assessment Notes Treatment Notes Treatment Clinical Notes Jan, Diarrhea (ICD-10 - R19.7) Continue Dicyclomine Jan, GERD (gastroesophageal reflux disease) (ICD-10 - K21.9) Continue Omeprazole without change [facility] Other 04-29-2022 Evaluation note* Encounter Date Diagnosis Assessment Notes Treatment Notes Treatment Clinical Notes Oct, GERD (gastroesophageal reflux disease) (ICD-10 - K21.9) [facility] Other 04-05-2022 Evaluation note* Encounter Date Diagnosis Assessment Notes Treatment Notes Treatment Clinical Notes Oct, Diarrhea, unspecified (ICD-10 - R19.7) CONTINUE DICYCLOMINE DIRECTED RTO 3 MONTHS Oct, GERD (gastroesophageal reflux disease) (ICD-10 - K21.9) STOP CARAFATE [facility] Other 12-30-2021 Evaluation note* Encounter Date Diagnosis [...] With Stitches: Care Instructions material was printed [facility] Other 12-22-2021 Evaluation note* Encounter Date Diagnosis [...] elevation therapy. Recommended that she continue with [id number] oral anti-inflammatories . Informed her that she [...] 4 weeks to check on her progress. [facility] Other 09-26-2014 History general Narrative - Reported* [...] see above Hospitalization History MS Hospitalization History [facility] [place] [facility] Other 09-26-2014 History general Narrative - Reported* [...] Hospitalization History [facility] [place] [facility] Other Evaluation note* Diagnosis Onset Date Resolution Status Chronic kidney disease, stage 3b acute Hypertensive nephropathy acu te Lesion of left [facility] kidney acute [facility] Work Phone: Evaluation note* Diagnosis Onset Date Resolution Status Chronic kidney disease, stage 3b acute Hypertensive nephropathy acu te Hypomagnesemia acute Lesion of left [facility] [place] kidney acute [facility] Work Phone: Evaluation note* Diagnosis Primary hypertension (CMS/HCC)- Primary Unspecified essential hypertension Stage 3a chronic kidney disease (HCC) ([facility]/HCC) Migraine without aura and without status migrainosus, not intractable (CMS/HCC) Tobacco dependency Tobacco use disorder Primary hypertension (CMS/HCC)- Primary Unspecified essential hypertension Stage 3a chronic kidney disease (HCC) ([facility]/HCC) Abnormal renal ultrasound Primary hypertension (CMS/HCC)- Primary Unspecified essential hypertension Stage 3a chronic kidney disease (HCC) (CMS/HCC) Tobacco dependency Tobacco use disorder Bipolar 2 disorder (CMS/HCC) Other bipolar disorders Allergic reaction to bee sting Screening for hyperlipidemia- Primary Screening for lipoid disorders Screening for diabetes mellitus Primary hypertension (CMS/HCC) Unspecified essential hypertension Tobacco dependency Tobacco use disorder Class 1 obesity due to excess calories without serious comorbidity with body mass index (BMI) of 33.0 to 33.9 in adult Primary hypertension (CMS/HCC)- Primary Unspecified essential hypertension Stage 3a chronic kidney disease (HCC) (CMS/HCC) Class 1 obesity due to excess calories without serious comorbidity with body mass index (BMI) of 33.0 to 33.9 in adult Tobacco dependency Tobacco use disorder Bipolar 2 disorder (CMS/HCC) Other bipolar disorders Well woman exam with routine gynecological exam Routine gynecological examination Breast cancer screening by mammogram Postmenopausal state Asymptomatic postmenopausal status (age-related) (natural) Hormone imbalance [facility] Primary hypertension (CMS/HCC)- Primary Unspecified essential hypertension Stage 3a chronic kidney disease (HCC) (CMS/HCC) Migraine without aura and without status migrainosus, not intractable (CMS/HCC) Tobacco dependency Tobacco use disorder Primary hypertension (CMS/HCC)- Primary Unspecified essential hypertension Stage 3a chronic kidney disease (HCC) (CMS/HCC) Abnormal renal ultrasound Primary hypertension (CMS/HCC)- Primary Unspecified essential hypertension Stage 3a chronic kidney disease (HCC) (CMS/HCC) Tobacco dependency Tobacco use disorder Bipolar 2 disorder (CMS/HCC) Other bipolar disorders Allergic reaction to bee sting Screening for hyperlipidemia- Primary Screening for lipoid disorders Screening for diabetes mellitus Primary hypertension (CMS/HCC) Unspecified essential hypertension Tobacco dependency Tobacco use disorder Class 1 obesity due to excess calories without serious comorbidity with body mass index (BMI) of 33.0 to 33.9 in adult Primary hypertension (CMS/HCC)- Primary Unspecified essential hypertension Stage 3a chronic kidney disease (HCC) ([facility]/HCC) Class 1 obesity due to excess calories without serious comorbidity with body mass index (BMI) of 33.0 to 33.9 in adult Tobacco dependency Tobacco use disorder Bipolar 2 disorder ([facility]/HCC) Other bipolar disorders Osteopenia, unspecified location- Primary [facility] Diagnosis Primary hypertension ([facility]/HCC)- Primary Unspecified essential hypertension Stage 3a chronic kidney disease (HCC) ([facility]/HCC) Class 1 obesity due to excess calories without serious comorbidity with body mass index (BMI) of 33.0 to 33.9 in adult Tobacco dependency Tobacco use disorder Bipolar 2 disorder ([facility]/HCC) Other bipolar disorders [facility] Primary hypertension ([facility]/HCC)- Primary Unspecified essential hypertension Stage 3a chronic kidney disease (HCC) ([facility]/HCC) Migraine without aura and without status migrainosus, not intractable ([facility]/HCC) Tobacco dependency Tobacco use disorder Primary hypertension ([facility]/HCC)- Primary Unspecified essential hypertension Stage 3a chronic kidney disease (HCC) (CMS/HCC) Abnormal renal ultrasound Primary hypertension (CMS/HCC)- Primary Unspecified essential hypertension Stage 3a chronic kidney disease (HCC) ([facility]/HCC) Tobacco dependency Tobacco use disorder Bipolar 2 disorder ([facility]/HCC) Other bipolar disorders Allergic reaction to bee sting Screening for hyperlipidemia- Primary Screening for lipoid disorders Screening for diabetes mellitus Primary hypertension ([facility]/HCC) Unspecified essential hypertension Tobacco dependency Tobacco use disorder Class 1 obesity due to excess calories without serious comorbidity with body mass index (BMI) of 33.0 to 33.9 in adult Primary hypertension ([facility]/HCC)- Primary Unspecified essential hypertension Stage 3a chronic kidney disease (HCC) (CMS/HCC) Class 1 obesity due to excess calories without serious comorbidity with body mass index (BMI) of 33.0 to 33.9 in adult Tobacco dependency Tobacco use disorder Bipolar 2 disorder (CMS/HCC) Other bipolar disorders Primary hypertension (CMS/HCC)- Primary Unspecified essential hypertension Stage 3a chronic kidney disease (HCC) (CMS/HCC) Class 1 obesity due to excess calories without serious comorbidity with body mass index (BMI) of 33.0 to 33.9 in adult Screening for hyperlipidemia Screening for lipoid disorders Tobacco dependency Tobacco use disorder Bipolar 2 disorder (CMS/HCC) Other bipolar disorders Migraine without aura and without status migrainosus, not intractable (CMS/HCC) Back spasm Other symptoms referable to back documented in this encounter [facility] Summary Purpose Family History Relationship Condition [...] stage 3b Hypertensive nephropathy Lesion of left [place] kidney Chief Complaint BH RENAL 3 MONTH F/U Reason for Visit Chronic kidney disea se, stage 3b Hypertensive nephropathy Hypomagnesemia Lesion of left [facility] kidney Additional Source Comments INFORMATION SOURCE (unrecogn ized section and content) DATE CREATED AUTHOR 08/08/2021 [facility] DATE CREATED AUTHOR AUTHOR'S ORGANIZ ATION 08/17/2022 [facility] DATE CREATED AUTHOR AUTHOR'S ORGANIZ ATION 11/27/2022 [facility] DATE CREATED AUTHOR AUTHOR'S ORGANIZ ATION 06/26/2024 [facility] dical Specialists EPIC REASON FOR VISIT (unrecogniz ed section and content) Reason Comments Well Women Visit Reason Comments Follow-up Care Teams (unrecognized sec tion and content) Cake Inspector Relationship Specialty Start Date End Date Shaikh eHrnandes MD [address] [place] [address] PCP - General Internal Medicine 08/11/23 Margarette Estevez NP [address] [place] [address] Nurse Practitioner Family Medicine 05/26/23 Team Status: Active Member Role Status Dates Ethan Licona DO Primary Care Provider Active Team Status: Active Member Role Status Dates Chinmay Manning MD Attending Provider Active Start: September 25, 2023 Team Status: Inactive Member Role Status Dates Debby Dominguez MD Attending Provider Active Star t: December 09, 2023 End: December 09, 2023 Ethan Licona DO Primary Care Provider Active Start: December 09, 2023 End: December 09, 2023 Team Status: Active Member Role Status Dates Chinmay Manning MD Attending Provider Active Start: December 26, 2023 Team Status: Active Member Role Status Dates Ethan Licona DO Primary Care Provider Active Start: February 21, 2024 Debby Dominguez MD Attending Provider Active Star t: February 21, 2024 Team Status: Inactive Member Role Status Dates Ethan Licona DO Primary Care Provider Active Start: March 17, 2024 End: March 17, 2024 Debby Dominguez MD Attending Provider Active Star t: March 17, 2024 End: March 17, 2024 Cake Inspector Relationship Specialty Start Date End Date Shaikh Hernandes MD [address] [place] [address] PCP - General Internal Medicine 08/11/23 Margarette Estevez NP [address] [place] [address] Nurse Practitioner Family Medicine 05/26/23 Cake Inspector Relationship Specialty Start Date End Date Shaikh Hernandes MD [address] [place] [address] PCP - General Internal Medicine 08/11/23 Margarette Estevez NP [address] [place] [address] Nurse Practitioner Family Medicine 05/26/23 Cake Inspector Relationship Specialty Start Date End Date Shaikh Hernandes MD [address] [place] [address] PCP - General Internal Medicine 08/11/23 Margarette Estevez NP [address] [place] [address] Nurse Practitioner Family Medicine 05/26/23 Cake Inspector Relationship Specialty Start Date End Date Shaikh Hernandes MD [address] [place] [address] PCP - General Internal Medicine 08/11/23 Shaikh Hernandes MD [address] [place] [address] PCP - [place] [employer] 04/13/24 Margarette Estevez NP [address] [place] [address] Nurse Practitioner Family Medicine 05/26/23 Cake Inspector Relationship Specialty Start Date End Date Shaikh Hernandes MD [address] [place] [address] PCP - General Internal Medicine 08/11/23 Margarette Estevez NP [address] [place] [address] Nurse Practitioner Family Medicine 05/26/23 Cake Inspector Relationship Specialty Start Date End Date Shaikh Hernandes MD [address] [place] [address] PCP - General Internal Medicine 08/11/23 Shaikh Hernandes MD [address] [place] [address] PCP - [place] [employer] 04/13/24 Margarette Estevez NP [address] [place] [address] Nurse Practitioner Family Medicine 05/26/23 Cake Inspector Relationship Specialty Start Date End Date Shaikh Hernandes MD [address] [place] [address] PCP - General Internal Medicine 08/11/23 Shaikh Hernandes MD [address] [place] [address] PCP - [place] [employer] 04/13/24 Margarette Estevez NP [address] [place] [address] Nurse Practitioner Family Medicine 05/26/23 Cake Inspector Relationship Specialty Start Date End Date Shaikh Hernandes MD [address] [place] [address] PCP - General Internal Medicine 08/11/23 Margarette Estevez NP [address] [place] [address] Nurse Practitioner Family Medicine 05/26/23 Goals (unrecognized [...] BE BASED ON THE PRIMARY CLINICAL RECORDS. [employer] [facility]. provides no warranty or guarantee of the accuracy or completeness of information in this document.
[2024-08-07 09:12] LABS: Hematocrit 45.3 % (36.0-48.0); Hemoglobin 14.6 g/dL (12.0-16.0); Mean Corpuscular HGB Conc 32.2 g/dL (29.9-35.2); Mean Corpuscular Hemoglobin 30.2 pg (26.7-34.0); Mean Corpuscular Volume 93.8 fL (81.0-99.0); Platelet Count 249 10^3/uL (150-450); Red Blood Count 4.83 10^6/uL (4.20-5.40); Red Cell Distribution Width 11.9 % (11.0-15.0)
[2024-08-07 09:43] LABS: Albumin Level 3.6 g/dL (3.4-5.0); Anion Gap 13.8; Calcium 8.8 mg/dL (8.5-10.1); Chloride 105 mmol/L (98-107); Estimated GFR (African America 37 (>=60 mL/min/1.73m^2); Estimated GFR (Non-African Ame 31 (>=60 mL/min/1.73m^2); Glucose 105 mg/dL (74-106); Magnesium 1.8 mg/dL (1.8-2.4); Phosphorus 3.7 mg/dL (2.6-4.7); Potassium 3.8 mmol/L (3.5-5.1); Sodium 141 mmol/L (136-145); Uric Acid 4.4 mg/dL (2.6-6.0)
[2024-08-07 09:57] LABS: Bilirubin Urine NEGATIVE (NEGATIVE); Blood Urine TRACE-L (NEGATIVE); Clarity Urine CLEAR (CLEAR); Color Urine YELLOW (YELLOW); Glucose Urine UA NEGATIVE (NEGATIVE); Ketones Urine NEGATIVE (NEGATIVE); Leukocyte Esterase Urine NEGATIVE (NEGATIVE); Nitrite Urine NEGATIVE (NEGATIVE); Protein Urine NEGATIVE (NEG/TRACE); Specific Gravity Urine 1.015 (1.005-1.025); Urobilinogen Urine 0.2 EU/dL (0.2-1.0)
[2024-08-07 17:33] LABS: Creatinine Urine Random 139.22 mg/dL (20.00-300.00); Microalbum Creatinine Ratio Ur 9.3 mg/g (0.0-29.9); Microalbumin Urine Random <1.3 mg/dL (<=30.0); Protein Creatinine Ratio Urine 0.15; Total Protein Urine Random 20.7 mg/dL (<=11.9)
[2024-08-08 13:07] LABS: PTH, Intact 30 pg/mL (15-65)
== END 2024-08-07 08:54 | disposition home or self-care (01) ==
LOC: LAB 08:53
PROVIDERS: Visit Provider Internal Medicine Nephrology
DX: E83.42 Hypomagnesemia (principal); N28.9 Disorder of kidney and ureter, unspecified; I12.9 Hypertensive chronic kidney disease with stage 1 through stage 4 chronic kidney disease, or unspecified chronic kidney disease; N18.32 Chronic kidney disease, stage 3b
CPT/HCPCS: 36415; 80069; 81003; 82043; 82306; 82570; 83735; 83970; 84156; 84550; 85027

== ENCOUNTER 2024-12-14 09:06 | Outpatient (OUT) | payer BC, OTHER, SELFPAY ==
--- OUTSIDE RECORDS SUMMARY | 2024-12-14 09:09 | XMS_ITS | Clinical Summary ---
Author Organization [facility] Address [address] [place] [address] Care Team Providers Care Printed Circuit Boards Pinner Name Role Phone Unavailable Primary Care Provider Unavailabl e Allergies Active Allergy Reactions Criticality Noted Date Comments Bee Venom Protein (Honey Bee) Hives 11/29/2014 Tree Nuts Hives,Shortness Of Breath,Swelling High 07/28/2021 Especially black walnuts Medications bacitracin zinc ointment Apply topically 2 (two) times a day . 120 g 2 Active mirtazapine (REMERON SOURAV-TAB) 15 MG disintegrating tablet Dissolve 1 (one) tablet (15 mg total) on top of tongue nightly . 30 tablet 2 Active paliperidone (INVEGA) 3 MG 24 hr tablet Take 1 (one) tablet (3 mg total) by mouth daily Start: 08/05/21. 30 tablet 2 Active lamoTRIgine (LAMICTAL) 25 MG tablet Take 2 (two) tablets (50 mg total) by mouth 2 (two) times a day . 120 tablet 2 Active Active Problems Problem Noted Date Diagnosed Date Psychosis, unspecified psychosis type 07/28/2021 Anxiety 07/28/2021 Gastritis 07/28/2021 Lipoma 07/28/2021 Social History Tobacco Use Types Packs/Day Years Used Date Smoking Tobacco: Some Days Cigarettes Smokeless Tobacco: Never Tobacco Cessation:Ready to Q uit: No; Counseling Given: No Alcohol Use Standard Drinks/Week Comments Yes 1 (1 standard drink = 0.6 oz pur e alcohol) Occasionaly Comments No Sex and Gender Information Value Date Recorded Sex Assigned at Not on file Legal Sex Female 7:16 PM EST Gender Identity Female 07/28/2021 5:12 AM EST Sexual Orientation Not on file Last Filed Vital Signs Vital Sign Reading Time Taken Comments Blood Pressure 134/77 08/04/2021 7:55 AM EST Pulse 78 08/04/2021 7:55 AM EST Temperature 36.4 C (97.5 F) 08/04/2021 7:55 AM EST Respiratory Rate 16 08/04/2021 7:55 AM EST Oxygen Saturation 97% 08/04/2021 7:55 AM EST Inhaled Oxygen Concentration - - Weight 51.7 kg (114 lb) 07/28/2021 4:30 AM EST Height 167.6 cm (5' 6 ) 07/28/2021 4:30 AM EST Body Mass Index 18.4 07/28/2021 4:30 AM EST Plan of Treatment Health Maintenance Due Date Last Done Comments CT Colonography 1965 Colonoscopy 1965 Colorectal Cancer Screening/Monitoring 1965 Fecal DNA 1965 Fecal occult blood test (FOBT,FIT) 1965 Tetanus: Every 10yrs 1965 Wellness Visit 12/07/1966 Depression Screening/Follow-Up (PHQ-2/9) 1975 HIV Screening 12/07/1978 Hepatitis C Screening 12/07/1981 Pap Smear 12/07/1984 Cervical Cancer Screening 12/07/1993 HPV/Cotest 12/07/1993 Pneumococcal Vaccine: Age 50+ (1 of 1 - PCV) 4 Zoster Vaccines (1 of 2) 12/07/2013 COVID-19 Vaccine ( - 2023- season) 2024 Influenza Vaccine (Season Ended) 2025 Respiratory Syncytial Virus Immunization: Risk, 60-74 Risk, or 75+ (1 - 1-dose 75+ series) 12/07/2038 Insurance [facility] [employer] [employer]IC[employer] Advance Directives For more information, please contact: [phone] * Full Code - Unverified (Latest Code Status on File) Date Activated Date Inactivated Comments 07/28/2021 4:13 AM 08/04/2021 5:09 PM
--- OUTSIDE RECORDS SUMMARY | 2024-12-14 09:09 | XMS_ITS | Clinical Summary ---
Author Organization [facility] Address [address] [place] [address] Care Team Providers Care Broacher Name Role Phone Unavailable Primary Care Provider Unavailabl e Social History Tobacco Use Types Packs/Day Years Used Date Smoking Tobacco: Never Assessed Comments Unknown Sex and Gender Information Value Date Recorded Sex Assigned at Not on file Legal Sex Female 8:08 PM EST Gender Identity Not on file Sexual Orientation Not on file Plan of Treatment Not on file
--- OUTSIDE RECORDS SUMMARY | 2024-12-14 09:09 | XMS_ITS | Encounter Summary ---
Author Organization [facility] Address [address] [facility] [place] [address] Care Team Providers Care Astronaut Mission Specialist Name Role Phone Margarette Estevez NP Unavailable [phone] Shaikh DENISE Hernandes Primary Care Provider [phone] Shaikh DENISE Hernandes Unavailable [phone] Encounter Details Date Type Department Care Team (Late st Contact Info) Description 02/18/2024 Abstract [facility] [address] [place] [phone] Ursula Garza NP Social History Tobacco Use Types Packs/Day Years Used Date Smoking Tobacco: Every Day Cigarettes 0.5 15 Smokeless Tobacco: Never Alcohol Use Standard Drinks/Week Comments Never 0 (1 standard drink = 0.6 oz pur e alcohol) PHQ-2 Answer Date Recorded Patient Health Questionnaire-2 Score 0 02/12/2024 Comments Unknown Sex and Gender Information Value Date Recorded Sex Assigned at Not on file Legal Sex Female 6:39 PM EDT Gender Identity Not on file Sexual Orientation Not on file documented as of this encounter Plan of Treatment Upcoming Encounters Date Type Department Care Team (Late st Contact Info) Description 12/22/2024 6:00 PM EDT Office Visit [facility] [address] [place] [address] Margarette Estevez, MANAGER THERAPY [address] [place] [address] 05/02/2025 3:00 PM EDT Office Visit [facility] [address] [facility] [place] [address] Danya Zapien PA [address] [facility] [address] [place], [place] [phone] documented as of this encounter Visit Diagnoses Not on filedocumented in this encounter Care Teams Astronaut Mission Specialist Relationship Specialty Start Date End Date Shaikh Hernandes MD [address] [place] [address] PCP - General Internal Medicine 08/11/23 Shaikh Hernandes MD [address] [place] [address] PCP - [place] [employer] 04/13/24 Margarette Estevez NP [address] [place] [address] Nurse Practitioner Family Medicine 05/26/23 documented as of this encounter
--- OUTSIDE RECORDS SUMMARY | 2024-12-14 09:09 | XMS_ITS | Encounter Summary ---
Author Organization [facility] Address [address] [place] [address] Care Team Providers Care Emergency Detail Driver Name Role Phone Margarette Estevez SUPERVISOR YARD Unavailable [phone] Shaikh DENISE Hernandes Primary Care Provider [phone] Shaikh DENISE Hernandes Unavailable [phone] Encounter Details Date Type Department Care Team (Late st Contact Info) Description 08/25/2023 Clinisync Result Encounter [facility] External Department Unsolicited Shaikh Hernandes MD [address] [place] [address] Social History Tobacco Use Types Packs/Day Years Used Date Smoking Tobacco: Every Day Cigarettes 0.5 15 Smokeless Tobacco: Never Alcohol Use Standard Drinks/Week Comments Never 0 (1 standard drink = 0.6 oz pur e alcohol) Comments Unknown Sex and Gender Information Value Date Recorded Sex Assigned at Not on file Legal Sex Female 6:39 PM EDT Gender Identity Not on file Sexual Orientation Not on file documented as of this encounter Plan of Treatment Upcoming Encounters Date Type Department Care Team (Late st Contact Info) Description 12/22/2024 6:00 PM EDT Office Visit [facility] [address] [place] [address] Margarette Estevez SUPERVISOR YARD [address] [place] [address] 05/02/2025 3:00 PM EDT Office Visit [facility] [address] Danya Zapien PA [address] [facility] [address] [place], [facility] documented as of this encounter Procedures Procedure Name Priority Date/Time Associated Diagnosis Comments MR ABDOMEN W AND WO CONTRAST 08/25/2023 8:15 AM EST documented in this encounter Results * MR abdomen w and wo contrast (08/25/2023 8:15 AM EST) Anatomical Region Laterality Modality Abdomen Magnetic Resonan ce 08/25/2023 8:15 AM EST Narrative 08/25/2023 8:18 AM EST The [address] [address] Magnetic Resonance Report Signed Patient: ANIYAH LAY MR#: [id number] : 1965 Acct:[id number] Age/Sex: 57 / F ADM Date: 08/22/23 Loc: MRI Attending Dr: Shaikh Cecilio Branch Ordering Physician: Shaikh Jose Carlos Hernandes Date of Service: 08/22/23 Procedure(s): MR abdomen wo/w con Accession Number(s): [id number] cc: Shaikh Jose Carlos Hernandes The [address] [address] Patient Name: ANIYAH LAY MRN: [id number] date: 1965 Sex: F Assigned Patient Location: MRI Current Patient Location: Accession/Order Number: [id number] Exam Date: 08/22/2023 13:45 Report Date: 08/25/2023 08:15 At the request of: SHAIKH CECILIO Procedure: MR abdomen wo/w con EXAMINATION: MR abdomen wo/w con HISTORY: Abnormal ultrasound of left kidney COMPARISON: No relevant comparison available. TECHNIQUE: A comprehensive examination was performed utilizing a variety of imaging planes and imaging parameters to optimize visualization of suspected pathology. Images were obtained without contrast. FINDINGS: LIVER: Visualized portions demonstrate no focal mass BILIARY: The gallbladder is nonvisualized PANCREAS: No lesion, fluid collection, ductal dilatation, or atrophy. SPLEEN: No enlargement or focal lesion. KIDNEYS: Multiple bilateral renal cortical hypodensities, nonenhancing. Cortical cysts are favored the largest along the left lateral midpole measures 1.2 x 0.6 cm. No focal solid mass ADRENALS: No mass or enlargement. AORTA/VASCULAR: No aneurysm or dissection. RETROPERITONEUM: No mass or adenopathy. BOWEL/MESENTERY: No visible mass, obstruction, or bowel wall thickening. ABDOMINAL WALL: No mass or hernia. BONES: No bony lesion or fracture. LUNG BASES: No visible pleural disease. Lung bases not well assessed with MRI. OTHER: Negative. MR/MR abdomen wo/w con IMPRESSION: No focal renal mass. The abnormality on ultrasound represents prominent midpole cortical tissue Electronically authenticated by: NETO TAO Date: 08/25/2023 08:15 Dictated By: Neto Tao M.D. Signed By: 08/25/23817 DD/ 4 TD/TT: Photographic Engineer: Procedure Note Radiology, Radiologist, MD - 08/25/2023 [place] [address] Magnetic Resonance Report Signed Patient: ANIYAH LAY SMR#: [id number] : 1965Acct:[id number] Age/Sex: 57 / FADM Date: 08/22/23 Loc: MRI Attending Dr: Shaikh Cecilio Branch Ordering Physician: Shaikh Jose Carlos Hernandes Date of Service: 08/22/23 Procedure(s): MR abdomen wo/w con Accession Number(s): [id number] cc: Shaikh Jose Carlos Hernandes The [place] [id number] Patient Name: ANIYAH LAY MRN: [id number] date: 1965 Sex: F Assigned Patient Location: MRI Current Patient Location: Accession/Order Number: [id number] Exam Date: 08/22/2023 13:45 Report Date: 08/25/2023 08:15 At the request of: SHAIKH CECILIO Procedure: MR abdomen wo/w con EXAMINATION: MR abdomen wo/w con HISTORY: Abnormal ultrasound of left kidney COMPARISON: No relevant comparison available. TECHNIQUE: A comprehensive examination was performed utilizing a varietyof imaging planes and imaging parameters to optimize visualization ofsuspected pathology. Images were obtained without contrast. FINDINGS: LIVER: Visualized portions demonstrate no focal mass BILIARY: The gallbladder is nonvisualized PANCREAS: No lesion, fluid collection, ductal dilatation, or atrophy. SPLEEN: No enlargement or focal lesion. KIDNEYS: Multiple bilateral renal cortical hypodensities, nonenhancing. Cortical cysts are favored the largest along the left lateral midpolemeasures 1.2 x 0.6 cm. No focal solid mass ADRENALS: No mass or enlargement. AORTA/VASCULAR: No aneurysm or dissection. RETROPERITONEUM: No mass or adenopathy. BOWEL/MESENTERY: No visible mass, obstruction, or bowel wall thickening. ABDOMINAL WALL: No mass or hernia. BONES: No bony lesion or fracture. LUNG BASES: No visible pleural disease. Lung bases not well assessed withMRI. OTHER: Negative. MR/MR abdomen wo/w con IMPRESSION: No focal renal mass. The abnormality on ultrasound represents prominent midpole cortical tissue Electronically authenticated by: NETO TAO Date: 08/25/2023 08:15 Dictated By: Neto Tao M.D. Signed By:08/25/23817 DD/ 4 TD/TT: Photographic Engineer: Shaikh Cecilio WALKER IMG MRI PROCEDURES Final Result documented in this encounter Visit Diagnoses Not on filedocumented in this encounter Care Teams Emergency Detail Driver Relationship Specialty Start Date End Date Shaikh Hernandes MD [address] [place] [address] PCP - General Internal Medicine 08/11/23 Shaikh Hernandes MD [address] [place] [address] PCP - Holly Monteiro 04/13/24 Margarette Estevez NP [address] [place] [address] Nurse Practitioner Family Medicine 05/26/23 documented as of this encounter
--- OUTSIDE RECORDS SUMMARY | 2024-12-14 09:09 | XMS_ITS | Encounter Summary ---
Author Organization [facility] Address [address] [place] [address] Care Team Providers Care Healthcare Administrator Name Role Phone Margarette Estevez GROUP INSURANCE SPECIALIST Unavailable [phone] Shaikh DENISE Hernandes Primary Care Provider [phone] Shaikh DENISE Hernandes Unavailable [phone] Encounter Details Date Type Department Care Team (Late Contact Info) Description 05/20/2024 Abstract [facility] [address] [facility] [address] Danya Zapien PA [address] [facility] [place] [address] Social History Tobacco Use Types Packs/Day Years Used Date Smoking Tobacco: Every Day Cigarettes 0.5 41.4 Started: 1985 Smokeless Tobacco: Never Alcohol Use Standard Drinks/Week Comments Never 0 (1 standard drink = 0.6 oz pur e alcohol) PHQ-2 Answer Date Recorded Patient Health Questionnaire-2 Score 0 03/24/2024 Comments Unknown Sex and Gender Information Value Date Recorded Sex Assigned at Not on file Legal Sex Female 6:39 PM EDT Gender Identity Not on file Sexual Orientation Not on file documented as of this encounter Plan of Treatment Upcoming Encounters Date Type Department Care Team (Late Contact Info) Description 12/22/2024 6:00 PM EDT Office Visit [facility] [address] [place] [address] Margarette Estevez, GROUP INSURANCE SPECIALIST [address] [place] [address] 05/02/2025 3:00 PM EDT Office Visit [facility] [address] [facility] [place] [address] Danya Zapien PA [address] [facility] [address] [place], [place] [address] documented as of this encounter Visit Diagnoses Not on filedocumented in this encounter Care Teams Healthcare Administrator Relationship Specialty Start Date End Date Shaikh Hernandes MD [address] [place] [address] PCP - General Internal Medicine 08/11/23 Shaikh Hernandes MD [address] [place] [address] PCP - [place] [employer] 04/13/24 Margarette Estevez NP [address] [place] [address] Nurse Practitioner Family Medicine 05/26/23 documented as of this encounter
--- OUTSIDE RECORDS SUMMARY | 2024-12-14 09:09 | XMS_ITS | Encounter Summary ---
Author Organization [facility] Address [address] [place] [address] Care Team Providers Care Gum Puller Name Role Phone Margarette Estevez GENERAL DUTY NURSE Unavailable [phone] Shaikh DENISE Hernandes Primary Care Provider [phone] Shaikh DENISE Hernandes Unavailable [phone] Encounter Details Date Type Department Care Team (Late st Contact Info) Description 05/15/2024 Clinisync Result Encounter [facility] External Department Unsolicited Danya Najera PA [address] [place] [address] [place] [address] Social History Tobacco Use Types Packs/Day Years [...] Office Visit [facility] [address] [place] [address] Margarette Estevez, GENERAL DUTY NURSE [address] [place] [address] 05/02/2025 3:00 PM EDT Office Visit [facility] [address] [facility] [place] [address] Danya Najera PA [address] [facility] [place] [address] documented as of this encounter Procedures Procedure Name Priority Date/Time Associated Diagnosis Comments XR DEXA AXIAL SKELETON 05/15/2024 6:10 AM EDT documented in this encounter Results * XR DEXA AXIAL SKELETON (05/15/2024 6:10 AM EDT) Anatomical Region Laterality Modality Other 05/15/2024 6:10 AM EDT Narrative 05/15/2024 6:12 AM EDT [address] [address] XRay Report Signed Patient: ANIYAH LAY MR#: [id number] : 1965 Acct:[id number] Age/Sex: 58 / F ADM Date: 05/14/24 Loc: MAMMO Attending Dr: Danya Najera Ordering Physician: Danya Najera Date of Service: 05/14/24 Procedure(s): XR DEXA axial skeleton Accession Number(s): [id number] cc: Danya Najera; Physician,Non-Staff M.Brady The [address] [address] Patient Name: ANIYAH LAY MRN: [id number] date: 1965 Sex: F Assigned Patient Location: MAMMO Current Patient Location: Accession/Order Number: [id number] Exam Date: 05/14/2024 11:10 Report Date: 05/15/2024 06:10 At the request of: DANYA NAJERA Procedure: XR DEXA axial skeleton EXAMINATION: XR DEXA axial skeleton HISTORY: Postmenopausal State COMPARISON: No relevant comparison available. TECHNIQUE: Dual-energy X-ray absorptiometry (DXA) was performed. FINDINGS: SPINE ANALYSIS: Average bone mineral density is 1.205 g/cm2. T-score (standard deviation relative to young adult mean): 0.2 . HIP ANALYSIS: Lowest bone mineral density is within the left femoral neck, 0.822 g/cm2. T-score (standard deviation relative to young adult mean): -1.6 . XR/XR DEXA axial skeleton IMPRESSION: World Health Organization Classification: Osteopenia - Moderate Fracture Risk FRAX: Cannot be calculated. Pharmacologic treatment recommendations * No uniform recommendation applies to all patients. Management plans must be individualized. * Consider initiating pharmacologic treatment in postmenopausal women and men >= 50 years of age who have the following: Primary fracture prevention: * T-score <= - 2.5 at the femoral neck, total hip, lumbar spine, 33% radius (some uncertainty with existing data) by DXA. * Low bone mass (osteopenia: T-score between - 1.0 and - 2.5) at the femoral neck or total hip by DXA with a 10-year hip fracture risk >= 3% or a 10-year major osteoporosis-related fracture risk >= 20% (i.e., clinical vertebral, hip, forearm, or proximal humerus) based on the US-adapted FRAXregistered model. Secondary fracture prevention: * Fracture of the hip or vertebra regardless of BMD [4, 5]. * Fracture of proximal humerus, pelvis, or distal forearm in persons with low bone mass (osteopenia: T-score between - 1.0 and - 2.5). The decision to treat should be individualized in persons with a fracture of the proximal humerus, pelvis, or distal forearm who do not have osteopenia or low BMD [12, 13]. Bi MS, Mell SL, Chung KL, Eduard EM, Leia KG, AJ, Reva ES. The clinician's guide to prevention and treatment of osteoporosis. Osteoporos Int. 2021;33(10):8862-4491. doi: 10.1007/y25644-322-93898-w. Epub 2021Nov 08. Erratum in: Osteoporos Int. 2021Feb 07;: PMID: 51481135; PMCID: [id number]. Electronically authenticated by: JUAN MARTINEZ Date: 05/15/2024 06:10 Dictated By: Juan Martinez M.D. Signed By: 05/15/24611 DD/ 9 TD/TT: Refrigeration Engineering Teacher: Procedure Note Radiology, Radiologist, - 05/15/2024 [place] [address] XRay Report Signed Patient: ANIYAH LAY SMR#: [id number] : 1965Acct:[id number] Age/Sex: 58 / FADM Date: 05/14/24 Loc: MAMMO Attending Dr: Danya Najera Ordering Physician: Danya Najera Date of Service: 05/14/24 Procedure(s): XR DEXA axial skeleton Accession Number(s): [id number] cc: Danya Najera; Physician,Non-Staff M.D. The [place] [address] Patient Name: ANIYAH LAY MRN: [id number] date: 1965 Sex: F Assigned Patient Location: [facility] Current Patient Location: Accession/Order Number: [id number] Exam Date: 05/14/2024 11:10 Report Date: 05/15/2024 06:10 At the request of: DANYA NAJERA Procedure: XR DEXA axial skeleton EXAMINATION: XR DEXA axial skeleton HISTORY: Postmenopausal State COMPARISON: No relevant comparison available. TECHNIQUE: Dual-energy X-ray absorptiometry (DXA) was performed. FINDINGS: SPINE ANALYSIS: Average bone mineral density is 1.205 g/cm2. T-score (standard deviation relative to young adult mean): 0.2 . HIP ANALYSIS: Lowest bone mineral density is within the left femoral neck, 0.822 g/cm2. T-score (standard deviation relative to young adult mean): -1.6 . XR/XR DEXA axial skeleton IMPRESSION: World Health Organization Classification: Osteopenia - Moderate FractureRisk FRAX: Cannot be calculated. Pharmacologic treatment recommendations * No uniform recommendation applies to all patients. Management plans mustbe individualized. * Consider initiating pharmacologic treatment in postmenopausal women andmen >= 50 years of age who have the following: Primary fracture prevention: * T-score <= - 2.5 at the femoral neck, total hip, lumbar spine, 33%radius (some uncertainty with existing data) by DXA. * Low bone mass (osteopenia: T-score between - 1.0 and - 2.5) at thefemoral neck or total hip by DXA with a 10-year hip fracture risk >= 3% or d16-hdsx major osteoporosis-related fracture risk >= 20% (i.e., clinical vertebral, hip, forearm, or proximal humerus) based on the US-adapted FRAXregisteredmodel. Secondary fracture prevention: * Fracture of the hip or vertebra regardless of BMD [4, 5]. * Fracture of proximal humerus, pelvis, or distal forearm in persons withlow bone mass (osteopenia: T-score between - 1.0 and - 2.5). The decision totreat should be individualized in persons with a fracture of the proximalhumerus, pelvis, or distal forearm who do not have osteopenia or low BMD [12, 13]. Bi MS, Mell SL, Chung KL, Eduard EM, Leia KG, AJ,Reva ES. The clinician's guide to prevention and treatment of osteoporosis.Osteoporos Int. 2021;33(10):6398-8101. doi: 10.1007/g09531-930-79458-f. Ep. Erratum in: Osteoporos Int. 2021Feb 07;: PMID: 65866663; PMCID: [id number]. Electronically authenticated by: JUAN MARTINEZ Date: 05/15/2024 06:10 Dictated By: Juan Martinez M.D. Signed By:05/15/24611 DD/ 9 TD/TT: Refrigeration Engineering Teacher: Danya [facility] Final Result documented in this encounter Visit Diagnoses Not on filedocumented in this encounter Care Teams Gum Puller Relationship Specialty Start Date End Date Shaikh Hernandes MD [address] [place] [address] PCP - General Internal Medicine 08/11/23 Shaikh Hernandes MD [address] [place] [address] PCP - [facility] 04/13/24 Margarette Estevez NP [address] [place] [address] Nurse Practitioner Family Medicine 05/26/23 documented as of this encounter
--- OUTSIDE RECORDS SUMMARY | 2024-12-14 09:09 | XMS_ITS | Encounter Summary ---
Author Organization [facility] Address [address] [place] [address] Care Team Providers Care Health Evaluator Name Role Phone Margarette Estevez STITCH RUBBER Unavailable [phone] Shaikh DENISE Hernandes Primary Care Provider [phone] Shaikh DENISE Hernandes Unavailable [phone] Encounter Details Date Type Department Care Team (Late st Contact Info) Description 05/14/2024 Clinisync Result Encounter [facility] External Department Unsolicited Danya Zapien PA [address] [place] [address] [place] [address] Social History Tobacco Use Types Packs/Day Years [...] Visit [facility] [address] [place] [address] Margarette Estevez, STITCH RUBBER [address] [place] [address] 05/02/2025 3:00 PM EDT Office Visit [facility] OB [address] [facility] [place] [address] Danya Zapien PA [address] [facility] [place] [address] documented as of this encounter Procedures Procedure Name Priority Date/Time Associated Diagnosis Comments MM TOMOSYNTHESIS SCREENING BI 05/14/2024 1:33 PM EDT documented in this encounter Results * MM TOMOSYNTHESIS SCREENING BI (05/14/2024 1:33 PM EDT) Anatomical Region Laterality Modality Other 05/14/2024 1:33 PM EDT Narrative 05/14/2024 1:33 PM EDT The [address] [address] Mammography Report Signed Patient: ANIYAH LAY MR#: [id number] : 1965 Acct:[id number] Age/Sex: 58 / F ADM Date: 05/14/24 Loc: MAMMO Attending Dr: Danya Zapien Ordering Physician: Danya Zapien Results: Date of Service: 05/14/24 Follow Up: Procedure(s): MM tomosynthesis screening BI Accession Number(s): [id number] cc: Danya Zapien; Physician,Non-Staff M.D. Patient Name: ANIYAH LAY MR#: [id number] : 1965 Exam Date: 05/14/2024 Ordering Doctor: SHENA Zapien . RADIOLOGY REPORT PROCEDURE: MM TOMOSYNTHESIS SCREENING BI COMPARISON: MG MAMM LT DIAG FU, 05/04/2019. MG MAMM SCREEN ELEANOR W CAD, 04/13/2019. INDICATIONS: Screening Calculator Name NCI Breast Cancer Risk Assessment Tool 5 Year Breast Cancer Risk 1.00% Lifetime Breast Cancer Risk 5.30% Personal Breast Cancer No Personal Ovarian Cancer No Treatments None Family Cancers Aunt-maternal with breast cancer at age 39; Aunt-paternal with breast cancer at age 50; Mother with uterine cancer at age 29. LOCATION: The [facility] BREAST COMPOSITION: The breasts are heterogeneously dense,which may obscure small masses. FINDINGS: DIAGNOSTIC CATEGORY 2--BENIGN FINDING. NO CHANGE FROM COMPARISON. Scattered benign-appearing nodules are present. Scattered benign-appearing calcifications are present. Scattered benign-appearing lymph nodes are present. RIGHT BREAST: No significant suspicious finding. LEFT BREAST: No significant suspicious finding. RECOMMENDATIONS: ROUTINE MAMMOGRAM AND CLINICAL EVALUATION IN 12 MONTHS. PLEASE NOTE: A NORMAL MAMMOGRAM DOES NOT EXCLUDE THE POSSIBILITY OF BREAST CANCER. A CLINICALLY SUSPICIOUS PALPABLE LUMP SHOULD BE BIOPSIED. Dictated by: Rogelio Jesus MD on 05/14/2024 at 13:31 Approved by: Rogelio Jesus MD on 05/14/2024 at 13:32 Dictated By: Rogelio Jesus M.D. Signed By: 05/14/241332 DD/ 32 TD/TT: Hematology Specialist: Procedure Note Radiology, Radiologist, - 05/14/2024 [place] [address] Mammography Report Signed Patient: ANIYAH LYA SMR#: [id number] : 1965Acct:[id number] Age/Sex: 58 / FADM Date: 05/14/24 Loc: MAMMO Attending Dr: Danya Zapien Ordering Physician: Danya ZapienResults: Date of Service: 05/14/24Follow Up: Procedure(s): MM tomosynthesis screening BI Accession Number(s): [id number] cc: Danya Zapien; Physician,Non-Staff M.DEliceo Patient Name: ANIYAH LAY MR#: [id number] : 1965 Exam Date: 05/14/2024 Ordering Doctor: SHENA Zapien . RADIOLOGY REPORT PROCEDURE: MM TOMOSYNTHESIS SCREENING BI COMPARISON: MG MAMM LT DIAG FU, 05/04/2019. MG MAMM SCREEN ELEANOR W CAD, 04/13/2019. INDICATIONS: Screening Calculator Name NCI Breast Cancer Risk Assessment Tool 5 Year Breast Cancer Risk 1.00% Lifetime Breast Cancer Risk 5.30% Personal Breast Cancer No Personal Ovarian Cancer No Treatments None Family Cancers Aunt-maternal with breast cancer at age 39;Aunt-paternal with breast cancer at age 50; Mother with uterine cancer at age 29. LOCATION: The [facility] BREAST COMPOSITION: The breasts are heterogeneously dense,which may obscure small masses. FINDINGS: DIAGNOSTIC CATEGORY 2--BENIGN FINDING. NO CHANGE FROM COMPARISON. Scattered benign-appearing nodules are present. Scatteredbenign-appearing calcifications are present. Scattered benign-appearing lymph nodes are present. RIGHT BREAST: No significant suspicious finding. LEFT BREAST: No significant suspicious finding. RECOMMENDATIONS: ROUTINE MAMMOGRAM AND CLINICAL EVALUATION IN 12 MONTHS. PLEASE NOTE: A NORMAL MAMMOGRAM DOES NOT EXCLUDE THE POSSIBILITY OFBREAST CANCER. A CLINICALLY SUSPICIOUS PALPABLE LUMP SHOULD BE BIOPSIED. Dictated by: Rogelio Jesus MD on 05/14/2024 at 13:31 Approved by: Rogelio Jesus MD on 05/14/2024 at 13:32 Dictated By: Rogelio Jesus M.D. Signed By:05/14/243 DD/ 32 TD/TT: Hematology Specialist: Danya [facility] Final Result documented in this encounter Visit Diagnoses Not on filedocumented in this encounter Care Teams Health Evaluator Relationship Specialty Start Date End Date Shaikh Hernandes MD [address] [place] [address] PCP - General Internal Medicine 08/11/23 Shaikh Hernandes MD [address] [place] [address] PCP - [employer] 04/13/24 Margarette Estevez NP [address] [place] [address] Nurse Practitioner Family Medicine 05/26/23 documented as of this encounter
--- OUTSIDE RECORDS SUMMARY | 2024-12-14 09:09 | XMS_ITS | Encounter Summary ---
Author Organization [facility] Address [address] [place] [address] Care Team Providers Care Polyethylene Combiner Name Role Phone Margarette Estevez BODY SERVICE TEAM MEMBER Unavailable [phone] Madhu Murphy MD Primary Care Provider Shaikh DENISE Hernandes Primary Care Provider Shaikh DENISE Hernandes Unavailable [phone] Encounter Details Date Type Department Care Team (Late st Contact Info) Description 06/27/2023 Clinisync Result Encounter [facility] External Department Unsolicited Shaikh Hernandes MD [address] [place] [address] Social History Tobacco Use Types Packs/Day Years [...] 12/22/2024 6:00 PM EDT Office Visit [facility] [address] [place] [address] Margarette Estevez BODY SERVICE TEAM MEMBER [address] [place] [address] 05/02/2025 3:00 PM EDT Office Visit [facility] OB [address] [facility] [place] [address] Danya Zapien PA [address] [facility] [place] [address] documented as of this encounter Procedures Procedure Name Priority Date/Time Associated Diagnosis Comments US RENAL BI 06/27/2023 9:58 AM EST documented in this encounter Results * US RENAL BI (06/27/2023 9:58 AM EST) Anatomical Region Laterality Modality Other 06/27/2023 9:58 AM EST Narrative 06/27/2023 10:01 AM EST [address] [address] Ultrasound Report Signed Patient: ANIYAH LAY MR#: [id number] : 1965 Acct:[id number] Age/Sex: 57 / F ADM Date: 06/27/23 Loc: US Attending Dr: Shaikh Cecilio Branch Ordering Physician: Shaikh Jose Carlos Hernandes Date of Service: 06/27/23 Procedure(s): US renal BI Accession Number(s): [id number] cc: Shaikh Jose Carlos Hernandes [address] [address] Patient Name: ANIYAH LAY MRN: [id number] date: 1965 Sex: F Assigned Patient Location: US Current Patient Location: US Accession/Order Number: [id number] Exam Date: 06/27/2023 08:58 Report Date: 06/27/2023 09:58 At the request of: SHAIKH CECILIO Procedure: US renal BI EXAMINATION: US renal BI HISTORY: Stage 3A Chronic Kidney Disease N18.31 COMPARISON: No relevant comparison available. TECHNIQUE: Ultrasound examination was performed of the bladder. FINDINGS: Right Kidney: Normal in size and contour. Cortical thinning, the cortex measures 0.9 cm. Increased cortical echotexture with no solid cortical mass. No hydronephrosis or obstructing nephrolithiasis. Height: 4.0 cm Length: 8.8 cm Width: 4.9 cm Left Kidney: Normal in size and contour. Cortical thinning, the cortex measures 0.9 cm. Increased cortical echotexture. Area of isoechogenicity in the midpole cortex measuring 2.0 x 1.9 x 2.0 cm. No hydronephrosis or obstructing nephrolithiasis Height: 4.2 cm Length: 9.9 cm Width: 5.1 cm The urinary bladder volume is 367 mL. Ureteral jets are not visualized US/US renal BI IMPRESSION: 2 cm area of hypoechogenicity left mid pole cortex. Consider follow-up CT exam or MRI without and with contrast for further characterization Bilateral renal cortical atrophy and increased echotexture consistent with known medical renal disease Electronically authenticated by: NETO TAO Date: 06/27/2023 09:58 Dictated By: Neto Tao M.D. Signed By: 06/27/23 1001 DD/ 0958 TD/TT: Client Service Professional: Procedure Note Radiology, Radiologist, MD - 06/27/2023 [place] [address] Ultrasound Report Signed Patient: ANIYAH LAY SMR#: [id number] : 1965Acct:[id number] Age/Sex: 57 / FADM Date: 06/27/23 Loc: US Attending Dr: Shaikh Cecilio Branch Ordering Physician: Shaikh Jose Carlos Hernandes Date of Service: 06/27/23 Procedure(s): US renal BI Accession Number(s): [id number] cc: Shaikh Jose Carlos Hernandes The [address] [address] Patient Name: ANIYAH LAY MRN: [id number] date: 1965 Sex: F Assigned Patient Location: US Current Patient Location: US Accession/Order Number: [id number] Exam Date: 06/27/2023 08:58 Report Date: 06/27/2023 09:58 At the request of: SHAIKH CECILIO Procedure: US renal BI EXAMINATION: US renal BI HISTORY: Stage 3A Chronic Kidney Disease N18.31 COMPARISON: No relevant comparison available. TECHNIQUE: Ultrasound examination was performed of the bladder. FINDINGS: Right Kidney: Normal in size and contour. Cortical thinning, the cortex measures 0.9 cm. Increased cortical echotexture with no solid corticalmass. No hydronephrosis or obstructing nephrolithiasis. Height: 4.0 cm Length: 8.8 cm Width: 4.9 cm Left Kidney: Normal in size and contour. Cortical thinning, the cortex measures 0.9 cm. Increased cortical echotexture. Area of isoechogenicity in themidpole cortex measuring 2.0 x 1.9 x 2.0 cm. No hydronephrosis or obstructing nephrolithiasis Height: 4.2 cm Length: 9.9 cm Width: 5.1 cm The urinary bladder volume is 367 mL. Ureteral jets are not visualized US/US renal BI IMPRESSION: 2 cm area of hypoechogenicity left mid pole cortex. Consider follow-up CTexam or MRI without and with contrast for further characterization Bilateral renal cortical atrophy and increased echotexture consistent with known medical renal disease Electronically authenticated by: NETO TAO Date: 06/27/2023 09:58 Dictated By: Neto Tao M.D. Signed By:06/27/23 1001 DD/ 0958 TD/TT: Client Service Professional: us Shaikh Cecilio [facility] Final Result documented in this encounter Visit Diagnoses Not on filedocumented in this encounter Care Teams Polyethylene Combiner Relationship Specialty Start Date End Date Madhu Murphy MD [address] [place] [address] PCP - General Family Medicine 06/13/23 08/10/23 Shaikh Hernandes MD [address] [place] [address] PCP - General Internal Medicine 08/11/23 Shaikh Hernandes MD [address] [place] [address] PCP - [facility] 04/13/24 Margarette Estevez NP [address] [place] [address] Nurse Practitioner Family Medicine 05/26/23 documented as of this encounter
[2024-12-14 09:20] LABS: Bilirubin Urine NEGATIVE (NEGATIVE); Blood Urine TRACE-I (NEGATIVE); Clarity Urine CLEAR (CLEAR); Color Urine YELLOW (YELLOW); Glucose Urine UA NEGATIVE (NEGATIVE); Ketones Urine NEGATIVE (NEGATIVE); Leukocyte Esterase Urine NEGATIVE (NEGATIVE); Nitrite Urine NEGATIVE (NEGATIVE); Protein Urine NEGATIVE (NEG/TRACE); Specific Gravity Urine 1.015 (1.005-1.025); Urobilinogen Urine 0.2 EU/dL (0.2-1.0)
--- OUTSIDE RECORDS SUMMARY | 2024-12-14 09:29 | XMS_ITS | CCD ---
Author Organization [facility] Care Team Providers Care Core Driller Helper Name Role Phone ELIANE BEEBE Admitting Unavailable ELIANE BEEBE Attending Unavailable SANDRA LIZARRAGA Consulting Unavailable Justin Che II Unavailable Christiana Lazaro Unavailable Bahman Meneses Unavailable [phone] [facility] Coats Primary [facility] Unavailable Kathryn Parks Attending Unavailable Kathryn Parks Admitting Unavailable JORGE L, DR ROONEY Admitting Unavailable JORGE L, DR ROONEY Primary Care Unavailable JORGE L, DR ROONEY Consulting Unavailable ALICIA, DR ROONEY Attending Unavailable DARIA, DR JAY Osuna Consulting Unavailable BECCA THOMAS Admitting Unavailable BECCA THOMAS Consulting Unavailable BECCA THOMAS Attending Unavailable JORGE L, DR ROONEY Primary Care Unavailable Herb SOLUTIONS ARCHITECT CONSULTANT, Margarette Unavailable Shaikh Hernandes MD Primary Care Provider Jorge Luis Barajas Unavailable MD Chinmay Manning Attending Provider MD Chinmay Manning Attending Provider Herb SOLUTIONS ARCHITECT CONSULTANT, Margarette Unavailable Shaikh Hernandes MD Primary Care Provider Shaikh Hernandes MD Unavailable Chinmay Manning MD Attending Provider MARGARETTE ESTEVEZ Attending Unavailable SHAIKH HERNANDES Attending Unavailable SHAIKH HERNANDES Attending Unavailable ROSITA GARZA Attending DANYA Ornelas Attending ROSITA Perez Attending Philip gonzalez Allergies Allergy Classification Reported Allergen(s) Allergy Type Date of Onset Reaction(s) Facility Anti-Epileptic Agents (1 source) gabapentin Drug Allergy 01-18-20 [facility] Dihydrofolate Reductase Inhibitors (antibiotic) (1 source) Trimethoprim Drug Allergy 10-11-19 22 [facility] Opioid Agonists (2 sources) HYDROmorphone Drug Allergy 10-11-19 22 sick, [facility] peanut allergenic extract (1 source) peanut allergenic extract Drug Allergy 10-11-19 [facility] Pollen (1 source) Bee pollen Substance Allergy 10-11-19 Anaphylaxis [facility] pregabalin (1 source) pregabalin Drug Allergy 01-18-20 22 Unknown Reaction [facility] Promethazine (1 source) Promethazine Drug Allergy 10-11-19 [facility] Quinolones (antibiotic) (1 source) Ciprofloxacin Drug Allergy 01-18-20 22 itching, nausea [facility] Sulfonamides (antibiotic) (1 source) Sulfamethoxazole Drug Allergy 10-11-19 [facility] Unclassified (1 source) codeine, depakote, bactrium, s Allergy to substance 01-18-20 22 [facility] Unclassified (3 sources) walnuts Allergy to substance 07-03-20 21 Anaphylaxis [facility] Valproate (1 source) Valproate Drug Allergy 10-11-19 22 itching, nausea [facility] (1 source) tree nut, unspecified; Translations: [TREE NUTS] Propensity to adverse reactions to drug (disorder) 07-28-19 [facility] Repository (1 source) BEE VENOM PROTEIN (HONEY BEE); Translations: [BEE VENOM PROTEIN (HONEY BEE)] Propensity to adverse reactions to drug (disorder) 11-30-19 [employer] Repository (20 sources) Ciprofloxacin Drug Allergy 09-24-19 18 [facility] Other (9 sources) gabapentin Drug Allergy 03-17-20 24 Unknown, Unknown Reaction [facility] (20 sources) HYDROmorphone Drug Allergy 06-13-20 23 Unknown, sick [facility] Other (9 sources) pregabalin Drug Allergy 03-17-20 24 Unknown, Unknown Reaction [facility] Comment on above: pain worse (7 sources) codeine, depakote, bactrium, sulfa, bees walnuts Propensity to adverse reactions Unknown [facility] Other (1 source) Acetaminophen / HYDROcodone Drug Allergy 11-03-19 15 [facility] Repository (1 source) bee venom Drug allergy (disorder) 11-30-19 15 [facility] Repository (3 sources) Codeine Drug Allergy 11-03-19 15 Hives [facility] Repository (1 source) HYDROmorphone Drug Allergy 11-30-19 15 [facility] Repository (1 source) Sulfamethoxazole / Trimethoprim Drug Allergy 11-03-19 15 [facility] Repository (1 source) Valproate Drug Allergy 11-03-19 15 [facility] Repository (1 source) Misc-Food; Translations: [Misc-Food] Food allergy (disorder) 11-03-19 15 [facility] Repository (15 sources) Acetaminophen / HYDROcodone Drug Allergy 06-13-20 [facility] (17 sources) Bee pollen Propensity to adverse reactions 06-13-20 Anaphylaxis [facility] (15 sources) Codeine Drug Allergy 06-13-20 [facility] (15 sources) Erythromycin Drug Allergy 06-13-20 [facility] (15 sources) Honey bee venom Propensity to adverse reactions 11-30-19 15 Hives [facility] Work Phone: (15 sources) Pregabalin Propensity to adverse reactions 06-13-20 [facility] (17 sources) Promethazine Drug Allergy 06-13-20 23 Rash [facility] (17 sources) Sulfamethoxazole Allergy to substance 06-17-20 17 Hives [facility] (15 sources) Sulfamethoxazole / Trimethoprim Drug Allergy 06-13-20 [facility] (15 sources) Valproate Drug Allergy 06-13-20 23 [facility] (9 sources) [place] Flavor Propensity to adverse reactions 06-13-20 23 [facility] (15 sources) Other Propensity to adverse reactions 07-28-19 22 Hives, Shortness of breath, Swelling [facility] (2 sources) peanut allergenic extract Drug Allergy 03-17-20 24 Rash [facility] (2 sources) Trimethoprim Drug Allergy 03-17-20 24 Hives [facility] (2 sources) Valproate Drug Allergy 03-17-20 24 itching, nausea [facility] (6 sources) [place] Flavoring Agent (Non-Screening) Propensity to adverse reactions 06-13-20 [facility] Medications Current Medications Medication Drug Class(es) Dates Sig (Normalized) Sig (Original) alendronic acid 70 mg / cholecalciferol 5600 unt oral tablet (7 sources) Bisphosphonate, Vitamin D Start: 05-27-2024 End: 05-27-2025 take 70-5600 tablets by mouth in the morning alendronate-chol ecalciferol (Fosamax Plus D) 70-5600 MG-UNIT tablet Indications: Osteopenia, unspecified location Take 1 tablet by mouth every 7 (seven) days Take in the morning with a full glass of water, on an empty stomach, and do not take anything else by mouth or lie down for the next 30 min. 4 tablet 11 05/27/2024 05/27/2025 Active alosetron 0.5 mg oral tablet (1 source) Serotonin-3 Receptor Antagonist Start: 08-01-2020 take 1 tablet by mouth every twenty-four hours Alosetron HCl 0.5 MG 1 tablet Orally daily for 30 days Jul, Active Biotin (3 sources) Biotin Active Calcium & Magnesium Carbonates (3 sources) Calcium & Magnesium Carbonates Active Centrum Silver 50+Women (1 source) Centrum Silver 50+Women Active Elderberry preparation (3 sources) Elderberry Active [id number] 0.3 ml EPINEPHrine 1 mg/ml auto-injector (18 sources) alpha-Adrenergic Agonist, beta-Adrenergic Agonist, Catecholamine Start: 12-09-2023 Epinephrine 0.3 mg/0.3 mL auto-injector Active 0.3 ML IM as needed 2023 11:00pm Start: 11-17-2023 EPINEPHrine (E pipen) 0.3 MG/0.3ML injection syringe Indications: Allergic reaction to bee sting Inject 0.3 mL (0.3 mg) as directed 1 (one) time for 1 dose use as directed for allergic reaction and then call 911 2 each 11/17/2023 Active EPINEPHrine (EPI PEN IJ) Inject as directed. 0 Active EPINEPHrine 0.3 MG/0.3ML as directed Injection Active estradiol 1 mg oral tablet (20 sources) Estrogen Start: 12-09-2023 End: 04-28-2025 take 1 tablet by mouth once daily estradiol (Estrace) 1 MG tablet Indications: Hormone imbalance TAKE 1 TABLET BY MOUTH EVERY DAY 90 tablet 4 05/24/2024 Active Magnesium (3 sources) Magnesium Active magnesium oxide 400 mg oral tablet (15 sources) Start: 03-17-2024 take 1 tablet by [...] at the same time 14 patch 06/23/2024 Active Start: 03-24-2024 End: 06-23-2024 nicotine polacrilex ([facility] otine Polacrilex) 4 MG lozenge Indications: Tobacco dependency Dissolve 1 lozenge (4 mg) in the mouth every 2 (two) hours if needed for smoking cessation 100 lozenge 03/24/2024 06/23/2024 Discontinued (Med list cleanup) Start: 03-17-2024 Nicotine Activ e TRANSDERML March 17, 2024 12:00am Start: 02-12-2024 End: 09-22-2024 apply 1 dose transdermal route every twenty-four hours nicotine (Nicoderm CQ) 14 MG/24HR patch Indications: Tobacco dependency Place 1 patch over 24 hours on the skin 1 (one) time each day at the same time Use after patient has used 21 mg dose. 14 patch 06/23/2024 09/22/2024 Discontinued (Therapy completed) Start: 02-12-2024 End: 09-22-2024 apply 1 dose transdermal route every twenty-four hours nicotine (Nicoderm CQ) 21 MG/24HR patch Indications: Tobacco dependency Place 1 patch over 24 hours on the skin 1 (one) time each day at the same time 42 patch 06/23/2024 09/22/2024 Discontinued (Therapy completed) omeprazole 20 mg delayed release oral capsule (20 sources) Proton Pump Inhibitor Start: 10-16-2021 take 1 capsule by mouth once daily Omeprazole 20 mg capsule,delayed release(DR/EC) Active 20 MG PO Daily 2023 11:00pm 24 hr paliperidone 3 mg extended release oral tablet (20 sources) Atypical Antipsychotic Start: 12-09-2023 End: 08-17-2024 take 1 tablet by mouth once daily in the morning Paliperidone 3 mg tablet extended release 24hr Active 3 MG PO Every morning August 17, 2024 3:56pm take 1 tablet by benedicto th every [...] Rectal PRN for 30 day(s) Jun, Active traZODone hydrochloride 100 mg oral tablet (20 sources) Serotonin Reuptake Inhibitor Start: 12-09-2023 take 2 tablets by mouth once daily at bedtime Trazodone 100 mg tablet Active 200 MG PO Daily at bedtime 2023 11:00pm Start: 12-09-2023 take 200 mg by mouth once daily at bedtime Trazodone Active 200 MG PO Daily at bedtime December 09, 2023 12:00am Start: 09-23-2017 End: 12-09-2023 Trazodone 150 mg tablet Disc ontinued 50 MG PO Bedtime September 22, 2017 11:00pm December 09, 2023 2:28pm Start: 09-23-2017 End: 12-09-2023 take 50 mg [...] (Original) busPIRone hydrochloride 10 mg oral tablet (5 sources) Start: 07-13-2020 End: 12-09-2023 Buspirone 10 mg tablet Discontinued 10 MG PO As Directed July 13, 2020 12:00am December 09, 2023 2:31pm BuSpar Active take 1 tablet by mouth twice nino ly BuSpar 10 MG 1 tablet Orally Twice a day Active citalopram 20 mg oral tablet (5 sources) Serotonin Reuptake Inhibitor Start: 07-13-2020 End: 12-09-2023 Citalopram 20 mg tablet Discontinued 20 MG PO As Directed July 13, 2020 12:00am December 09, 2023 2:31pm Citalopram [place] bromide Active cyclobenzaprine hydrochloride 10 mg oral tablet (20 sources) Muscle Relaxant Start: 03-24-2024 End: 10-22-2024 take 0.5 tablet by mouth at bedtime cyclobenzaprine (Flexeril) 10 MG tablet Indications: Back spasm Take 0.5 tablets (5 mg) by mouth at bedtime 30 tablet 1 06/23/2024 09/22/2024 Discontinued (Reorder) Start: 12-09-2023 take 1 tablet by benedicto th three times daily as needed Cyclobenzaprine 10 mg tablet Active 10 MG PO Three times daily as needed 2023 11:00pm End: 03-24-2024 take 5 mg by mouth three times daily as needed for muscle spasms cyclobenzaprine (Flexeril) 10 MG tablet Take 5 mg by mouth 3 (three) times a day as needed for muscle spasms. 03/24/2024 Discontinued (Dose adjustment) dicyclomine hydrochloride 10 mg oral capsule (10 sources) Anticholinergic Start: 08-16-2019 End: 12-09-2023 take 1 capsule by mouth three times daily Dicyclomine 10 mg Capsule Discontinued 10 MG PO Three times daily August 16, 2019 12:00am December 09, 2023 2:31pm Start: 04-30-2018 take 1 tablet by benedicto th every twenty-four hours Dicyclomine HCl 20 mg 1 tablet Orally once a day for 30 days Apr, Active take 1 tablet by benedicto th every eight hours Dicyclomine HCl 20 MG 1 tablet Orally Three times a day Active 1 ml erenumab-aooe 70 mg/ml auto-injector (4 sources) Start: 07-13-2020 End: 12-09-2023 Erenumab-Aooe (Aimovig Autoinjector) 70 mg/mL auto-injector Discontinued 70 MG SUBCUT As Directed July 13, 2020 12:00am December 09, 2023 2:31pm inject 70 mg by subc utaneous injection every month Aimovig 70 MG/ML as directed Subcutaneou s ONCE A MONTH Active estrogens, conjugated (care home) 0.625 mg oral tablet (13 sources) Estrogen Start: 07-13-2020 End: 12-09-2023 take 1 tablet by mouth once daily Conjugated Estrogens (Premarin) 0.625 mg tablet Discontinued 0.625 MG PO Daily July 13, 2020 12:00am December 09, 2023 2:31pm Start: 09-23-2017 End: 08-16-2019 take 1 tablet by mouth once daily Conjugated Estrogens 0.625 mg tablet Discontinued 0.625 MG PO Daily September 22, 2017 11:00pm August 16, 2019 6:38am losartan potassium 100 mg oral tablet (20 sources) Angiotensin 2 Receptor [place] Start: 08-11-2023 End: 03-21-2025 take 1 tablet by mouth once daily losartan (Cozaar) 100 MG tablet Indications: Primary hypertension (CMS/HCC) Take 1 tablet (100 mg) by mouth Daily 90 tablet 1 06/23/2024 09/22/2024 Discontinued (Reorder) sertraline 100 mg oral tablet (3 sources) Serotonin Reuptake Inhibitor Start: 09-23-2017 End: 07-13-2020 take 1 tablet by mouth once daily Sertraline 100 mg tablet Discontinued 100 MG PO Daily September 22, 2017 11:00pm July 13, 2020 12:21pm sucralfate 1000 mg oral tablet (7 sources) Aluminum Complex Start: 09-23-2017 End: 12-09-2023 take 1 tablet by mouth four times daily Sucralfate 1 gram tablet Discontinued 1 TAB PO Four times daily September 22, 2017 11:00pm December 09, 2023 2:31pm Start: 09-23-2017 End: 12-09-2023 take 1 tablet by mouth four times daily Sucralfate Discontinued 1 TAB PO Four times daily September 23, 2017 12:00am December 09, 2023 3:31pm Carafate Active take 1 capsule by mo uth twice daily Sucralfate 1 GM 1 capsule Oral twice times a day for 30 days Active tiZANidine 4 mg oral tablet (4 sources) Central alpha-2 Adrenergic Agonist Start: 07-13-2020 End: 12-09-2023 Tizanidine 4 mg tablet Discontinued 4 MG PO As Directed July 13, 2020 12:00am December 09, 2023 2:31pm tiZANidine HCl A ctive topiramate 100 mg oral tablet (20 sources) Start: 09-23-2017 End: 12-21-2024 take 1 tablet by mouth in the morning topiramate (Topamax) 100 MG tablet Indications: Bipolar 2 disorder (CMS/HCC) , Migraine without aura and without status migrainosus, not intractable (CMS/HCC) Take 1 tablet (100 mg) by mouth in the morning and 1 tablet (100 mg) before bedtime. 180 tablet 06/23/2024 09/22/2024 Discontinued (Reorder) Topamax Active take 1 capsule by mo uth three times daily Topiramate 100 MG 1 capsule Oral TID for 30 Active Problems Active Problems Problem Classification Problem Date Documented Da te Episodic/Chronic Abdominal pain (14 sources) Right upper quadrant pain; Translations: [Right upper quadrant pain] Episodic Allergic reactions (17 sources) Allergy to nut; Translations: [Allergy to other foods] Onset: 4 08-18-2023 Episodic Anal and rectal conditions (7 sources) Rectal pain; Translations: [Other specified diseases of anus and rectum] Episodic Anxiety disorders (20 sources) Anxiety; Translations: [Anxiety disorder, unspecified] Onset: 2 08-18-2023 Chronic Asthma (3 sources) Asthma; Translations: [Unspecified asthma, uncomplicated] 10-10-2021 Chronic Chronic kidney disease (20 sources) Chronic kidney disease stage 2; Translations: [Chronic kidney disease, stage 2 (mild)] Onset: 3 Resolved: 5 06-16-2023 Chronic Disorders of lipid metabolism (5 sources) Mixed hyperlipidemia; Translations: [Mixed hyperlipidemia] Onset: 5 09-22-2024 Chronic E Codes: Fall (3 sources) Fall (on) (from) other stairs and steps, initial encounter; Translations: [Fall down stairs] 07-03-2021 Episodic Esophageal disorders (11 sources) Gastroesophageal reflux disease; Translations: [Gastro-esophageal reflux disease without esophagitis] Onset: 2 Resolved: Chronic Essential hypertension (20 sources) Essential hypertension; Translations: [Essential (primary) hypertension] Onset: 3 06-16-2023 Chronic Gastritis and duodenitis (7 sources) Gastritis; Translations: [Gastritis, unspecified, without bleeding] Episodic Gastrointestinal hemorrhage (20 sources) Dark stools; Translations: [Melena] 07-26-2020 Episodic Headache; including migraine (19 sources) Migraine without aura, not refractory ; Translations: [Migraine without aura, not intractable, without status migrainosus] Onset: 3 06-16-2023 Chronic Headache; including migraine (7 sources) Headache; Translations: [Headache] Episodic Hemorrhoids (7 sources) Hemorrhoids; Translations: [Unspecified hemorrhoids] Episodic Hypertension with complications and secondary hypertension (6 sources) Hypertensive renal disease; Translations: [Hypertensive chronic kidney disease with stage 1 through stage 4 chronic kidney disease, or unspecified chronic kidney disease] 12-09-2023 Chronic Intestinal infection (14 sources) Clostridial enteric disease; Translations: [Enterocolitis due to Clostridium difficile, not specified as recurrent] Episodic Malaise and fatigue (14 sources) Fatigue; Translations: [Other fatigue] Episodic Mood disorders (20 sources) Bipolar II disorder; Translations: [Bipolar II disorder] Onset: 4 Resolved: 5 11-17-2023 Chronic Nausea and vomiting (14 sources) Vomiting; Translations: [Vomiting, unspecified] Episodic Noninfectious gastroenteritis (14 sources) Microscopic colitis; Translations: [Other specified noninfective gastroenteritis and colitis] Episodic Nonspecific chest pain (3 sources) Atypical chest pain; Translations: [Other chest pain] 10-10-2021 Episodic Other and unspecified benign neoplasm (7 sources) Lipoma (clinical); Translations: [Benign lipomatous neoplasm, unspecified] Episodic Other bone disease and musculoskeletal deformities (1 source) Osteopenia; Translations: [Other specified disorders of bone density and structure, unspecified site] 05-27-2024 Episodic Other diseases of kidney and ureters (3 sources) Kidney lesion; Translations: [Disorder of kidney and ureter, unspecified] 12-09-2023 Episodic Other diseases of kidney and ureters (3 sources) Disorder of kidney and ureter, unspecified; [...] Episodic Other nutritional; endocrine; and metabolic disorders (2 sources) Hypomagnesemia; Translations: [Hypomagnesemia] 03-17-2024 Chronic Other nutritional; endocrine; and metabolic disorders (2 sources) Hypomagnesemia; Translations: [Disorders of magnesium metabolism] 03-17-2024 Chronic Other nutritional; endocrine; and metabolic disorders (20 sources) Obesity caused by energy imbalance; Translations: [Class 1 obesity due to excess calories without serious comorbidity with body mass index (BMI) of 33.0 to 33.9 in adult] Onset: 4 Resolved: 5 02-12-2024 Chronic Other nutritional; endocrine; and metabolic disorders (7 sources) Weight loss; Translations: [Abnormal weight loss] Episodic Other screening for suspected conditions (not mental disorders or infectious disease) (20 sources) Ultrasonography of kidney abnormal; Translations: [Abnormal radiologic findings on diagnostic imaging of unspecified kidney] Onset: 4 Resolved: 5 08-18-2023 Episodic Other skin disorders (7 sources) Rash and other nonspecific skin eruption; Translations: [Rash] Episodic Regional enteritis and ulcerative colitis (7 sources) Pseudopolyposis of colon; Translations: [Inflammatory polyps of colon without complications] Chronic Residual codes; unclassified (2 sources) Postmenopausal state; Translations: [Asymptomatic menopausal state] 04-28-2024 Episodic Spondylosis; intervertebral disc disorders; other back problems (9 sources) Spasm of back muscles; Translations: [Muscle spasm of back] 06-23-2024 Episodic Sprains and strains (4 sources) Sprain of other ligament of left ankle, initial encounter; Translations: [Sprain of left ankle] Onset: 1 Resolved: 1 Episodic Substance-related disorders (20 sources) Tobacco dependence syndrome; Translations: [Nicotine dependence, unspecified, uncomplicated] Onset: 3 Resolved: 5 06-16-2023 Chronic Superficial injury; contusion (6 sources) Contusion of lower back; Translations: [Contusion [...] Test Name Value Interpretation Reference Range Facility Erythrocyte distribution wid th Auto (RBC) [Ratio]on 08-07-2024 Erythrocyte distribution width (RBC) [Ratio] Erythrocyte distribution width [Ratio] by Automated count 11.0-15.0 [facility] Estimated glomerular filtrat ion rate (GFR) non- Americanon 08-07-2024 GFR/1.73 sq M.predicted among non-blacks MDRD (S/P/Bld) [Vol rate/Area] Estimated glomerular filtration rate (GFR) non- Low >=60 mL/min/1.73m 2 [facility] Hematocrit Auto (Bld) [Volum e fraction]on 08-07-2024 Hematocrit (Bld) [Volume fraction] Hematocrit [Volume Fraction] of Blood by Automated count 36.0-48.0 [facility] Hemoglobin [Mass/volume] in Bloodon 08-07-2024 Hemoglobin (Bld) [Mass/Vol] Hemoglobin [Mass/volume] in Blood 12.0-16.0 [facility] Laboratory - Chemistry and C hemistry - challengeon 08-07-2024 Bilirubin Ql (U) Negative NEGATIVE [facility] Glucose (U) [Mass/Vol] Negative NEGATIVE [facility] Ketones Ql (U) Negative NEGATIVE [facility] pH (U) 6.0 [pH] 5.0-9.0 [facility] Specific gravity (U) [Rel density] 1.015 1.005-1.025 [facility] Urobilinogen Qn (U) 0.2 {Jimmy'U}/dL 0.2-1.0 [facility] Albumin [Mass/Vol] 3.6 g/dL 3.4-5.0 [facility] Calcium [Mass/Vol] 8.8 mg/dL 8.5-10.1 [facility] Chloride [Moles/Vol] 105 mmol/L 98-107 [facility] CO2 [Moles/Vol] 26.0 mmol/L 21.0-32.0 [facility] Creatinine [Mass/Vol] 1.69 mg/dL High 0.55-1.02 [facility] GFR/1.73 sq M.predicted MDRD (S/P/Bld) [Vol rate/Area] 37 mL/min/{1.73_m2} Low >=60 mL/min/1.73m 2 [facility] Glucose [Mass/Vol] 105 mg/dL 74-106 [facility] Magnesium [Mass/Vol] 1.8 mg/dL 1.8-2.4 [facility] Potassium [Moles/Vol] 3.8 mmol/L 3.5-5.1 [facility] Sodium [Moles/Vol] 141 mmol/L 136-145 [facility] Urate [Mass/Vol] 4.4 mg/dL 2.6-6.0 [facility] Urea nitrogen [Mass/Vol] 27.0 mg/dL High 7.0-18.0 [facility] Urea nitrogen/Creatinine [Mass ratio] 16.0 mg/mg [facility] Laboratory - Specimen inform ationon 08-07-2024 Appearance (U) CLEAR CLEAR [facility] Color (U) YELLOW YELLOW [facility] Laboratory - Urinalysison Leukocyte esterase Test strip Ql (U) Negative NEGATIVE [facility] Nitrite Ql (U) Negative NEGATIVE [facility] Protein (U) [Mass/Vol] 20.7 mg/dL High <=11.9 [facility] Protein Ql (U) Negative NEG/TRACE [facility] Leukocytes [#/volume] correc [place] for nucleated erythrocytes in Blood by Automated counon 08-07-2024 WBC corrected for nucl RBC Auto (Bld) [#/Vol] Leukocytes [#/volume] corrected for nucleated erythrocytes in Blood by Automated coun 4.0-11.0 [facility] MCH Auto (RBC) [Entitic mass ]on 08-07-2024 MCH (RBC) [Entitic mass] MCH [Entitic mass] by Automated count 26.7-34.0 [facility] MCHC Auto (RBC) [Mass/Vol]on 08-07-2024 MCHC (RBC) [Mass/Vol] MCHC [Mass/volume] by Automated count 29.9-35.2 [facility] MCV Auto (RBC) [Entitic vol] on 08-07-2024 MCV (RBC) [Entitic vol] MCV [Entitic volume] by Automated count 81.0-99.0 [facility] Microalbumin [Mass/volume] i n Urineon 08-07-2024 Albumin DL <= 20 mg/L (U) [Mass/Vol] Microalbumin [Mass/volume] in Urine <=30.0 [facility] No Panel Informationon 08-07 Urine Occult Blood TRACE-L NEGATIVE [facility] Urine Random Creatinine 139.22 mg/dL 20.00-300.00 [facility] 25-Hydroxy Vitamin D Total 45.1 ng/mL [facility] Comment on above: <20 ng/mL Vit D defi cient20-<30 ng/mL Vit D [id number] ng/mL Vit D sufficient>100 ng/mL Potential Toxicity Parathyroid Hormone (Intact) 30 pg/mL 15-65 [facility] Comment on above: Performed at: [facility] [place] [id number] Director: Davion Noonan PhD, Phone: [phone] Phosphorus Level 3.7 mg/dL 2.6-4.7 [facility] Platelet mean volume Auto (B ld) [Entitic vol]on 08-07-2024 Platelet mean volume (Bld) [Entitic vol] Platelet mean volume [Entitic volume] in Blood by Automated count Low 9.5-13.5 [facility] Platelets Auto (Bld) [#/Vol] on 08-07-2024 Platelets (Bld) [#/Vol] Platelets [#/volume] in Blood by Automated count 150-450 [facility] RBC Auto (Bld) [#/Vol]on RBC (Bld) [#/Vol] Erythrocytes [#/volume] in Blood by Automated count 4.20-5.40 [facility] Serum or plasma anion gap de terminationon 08-07-2024 Anion gap [Moles/Vol] Serum or plasma anion gap determination [facility] Urine microalbumin/creatinin e mass ratioon 08-07-2024 Albumin/Creatinine DL <= 20 mg/L (U) [Mass ratio] Urine microalbumin/creatini ne mass ratio 0.0-29.9 [facility] Comment on above: NO MICROALBUMINURIA 0-29 MG/GCLINICAL MICROALBUMINURIA 30-300 MG/GMACROALBUMINURIA >300 MG/G Urine protein/creatinine rat ioon 08-07-2024 Protein/Creatinine (U) [Ratio] Urine protein/creatinine ratio [facility] IGP,APTIMA HPV,AGE GDLNon AGE GDLN ACOG TESTING Note . [facility] Comment on above: TESTS RESULT FLAG UN ITS REF RANGE LAB Clinician Provided Cytology Information Source.............Vagina No. of containers..01 ThinPrep Vial Age Algo ACOG Marisol... -63 FLAG LEGEND: L-Low Normal,H-High Normal,LL-Alert Low,HH-Alert High <-Panic Low,>-Panic High,A-Abnormal,AA-Critical Abnormal Performed at: 01 =G [employer] [place] [address] Coby Rusesll MD, HPV APTIMA Negative Negative [facility] [facility] Comment on above: This nucleic acid am plification test detects fourteen high- risk HPV types (16,18,31,33,35,39,45,51,52,56,58,59,66,68) without differentiation. Performed at: =[employer], [place] [id number] Nutrition Services Assistant: Coby Russell MD, Phone: [phone] Performed at: - [facility], [place] [id number] Nutrition Services Assistant: Coby Russell MD, Phone: [phone] IGP, APTIMA HPV, RFX 16/18,45 Note . [facility] Comment on above: TESTS RESULT FLAG U NITS REF RANGE LAB DIAGNOSIS: 02 NEGATIVE FOR INTRAEPITHELIAL LESION OR MALIGNANCY. Specimen adequacy: 02 Satisfactory for evaluation. Performed by: 02 Nazia Crump, Business Development Analyst (ASCP) . 02 Note: Note 02 The [...] <-Panic Low,>-Panic High,A-Abnormal,AA-Critical Abnormal Performed at: [address] [facility] [place] [address] Coby Russell MD, [facility] - Chemistry and C hemistry - challengeon 02-21-2024 Albumin [Mass/Vol] 3.6 g/dL 3.4-5.0 [facility] Magnesium [Mass/Vol] 1.7 mg/dL Low 1.8-2.4 [facility] Urate [Mass/Vol] 4.6 mg/dL 2.6-6.0 [facility] Bilirubin Ql (U) Negative NEGATIVE [facility] Glucose (U) [Mass/Vol] Negative NEGATIVE [facility] Ketones Ql (U) Negative NEGATIVE [facility] pH (U) 6.0 [pH] 5.0-9.0 [facility] Specific gravity (U) [Rel density] 1.020 1.005-1.025 [facility] Urobilinogen Qn (U) 0.2 {Jimmy'U}/dL 0.2-1.0 [facility] Laboratory - Specimen inform ationon 02-21-2024 Appearance (U) CLEAR CLEAR [facility] Color (U) LT. YELLOW YELLOW [facility] Laboratory - Urinalysison Leukocyte esterase Test strip Ql (U) Negative NEGATIVE [facility] Nitrite Ql (U) Negative NEGATIVE [facility] Protein (U) [Mass/Vol] 13.0 mg/dL High <=11.9 [facility] Protein Ql (U) Negative NEG/TRACE [facility] Microalbumin [Mass/volume] i n Urineon 02-21-2024 Albumin DL <= 20 mg/L (U) [Mass/Vol] mg/dL <=30.0 [facility] No Panel Informationon 02-20 25-Hydroxy Vitamin D Total 54.3 ng/mL [facility] Comment on above: <20 ng/mL Vit D defi cient20-<30 ng/mL Vit D [id number] ng/mL Vit D sufficient>100 ng/mL Potential Toxicity Parathyroid Hormone (Intact) 28 pg/mL 15-65 [facility] Comment on above: Performed at: [facility] [id number] [place], [place] [id number] Director: Davion Noonan PhD, Phone: [phone] Phosphorus Level 4.0 mg/dL 2.6-4.7 [facility] Urine Occult Blood TRACE-I NEGATIVE [facility] Urine Random Creatinine 148.15 mg/dL 20.00-300.00 [facility] Protein/Creatinine (U) [Rati o]on 02-21-2024 Urine Protein/Creatinine Ratio 0.09 [facility] ALL BUNon 08-22-2023 Urea nitrogen [Mass/Vol] 21.0 mg/dL High 7.0 - 18.0 mg/dL [facility] No Panel Informationon 08-22 Interpretation and review of laboratory results Abnormal [facility] CREATININE[facility] 08-22-2023 Creatinine [Mass/Vol] 1.48 mg/dL High 0.55 - 1.02 mg/dL [facility] GFR/1.73 sq M.predicted CKD-EPI (S/P/Bld) [Vol rate/Area] 44 Low 60 - PINF [facility] EGFR-NON AF PRYDEINIG 36 Low 60 - PINF [facility] XR LSPINE MIN 4 VIEWSon 05-15 XR [...] by: JAY HUFF Date: 2022-06-07 12:11 Normal [facility] B-Type Natriuretic Peptideon 10-10-2021 Natriuretic peptide B (Bld) [Mass/Vol] 64.0 pg/mL Normal 5-100 [facility] Comment on above: Result Comment: PERF ORMED BY: [place] [address] PATHOLOGIST SHIPPING TECHNICIAN SHIMA SY M.D. Performed By: #### C K, CKMB, CBC, BMP, BNP #### [address] Basic Metabolic Panelon 03-3 0-2021 Calcium [Mass/Vol] 9.3 mg/dL Normal 8.2-10.2 [facility] Comment on above: Performed By: #### C K, CKMB, CBC, BMP, BNP #### [address] Chloride [Moles/Vol] 104 mmol/L Normal 95-114 [facility] Comment on above: Performed By: #### C K, CKMB, CBC, BMP, BNP #### [address] CO2 [Moles/Vol] 19.9 mmol/L Low 22.0-30.0 [facility] Comment on above: Performed By: #### C K, CKMB, CBC, BMP, BNP #### [address] Creatinine [Mass/Vol] 1.27 mg/dL High 0.44-1.03 [facility] Comment on above: Performed By: #### C K, CKMB, CBC, BMP, BNP #### [address] Creatinine Clr Calc Pharmacy 45.75 Normal [facility] Comment on above: Result Comment: PERF ORMED BY: [place] [address] PATHOLOGIST SHIPPING TECHNICIAN SHIMA SY M.D. Performed By: #### C K, CKMB, CBC, BMP, BNP #### [address] Estimated GFR ( Demetra 52 Normal [facility] Comment on above: Result Comment: GFR estimated reference range: According to KDOQI guidelines, <60 ml/min/1.73m2 is sufficient to diagnose a patient with chronic kidney disease. Performed By: #### C K, CKMB, CBC, BMP, BNP #### [address] Estimated GFR (Non- Am 43 Normal [facility] Comment on above: Performed By: #### C K, CKMB, CBC, BMP, BNP #### [address] Glucose [Mass/Vol] 96 mg/dL Normal 70-100 [facility] Comment on above: Result Comment: [facility] Glucose Reference Range is dependent on time and content of last meal. Glucose of more than 200 mg/dL in a nonstressed, ambulatory subject supports the diagnosis of Diabetes Mellitus. ADA recommended reference range Performed By: #### C K, CKMB, CBC, BMP, BNP #### [address] Potassium [Moles/Vol] 3.7 mmol/L Normal 3.5-5.1 [facility] Comment on above: Performed By: #### C K, CKMB, CBC, BMP, BNP #### [address] Sodium [Moles/Vol] 135 mmol/L Low 136-146 [facility] Comment on above: Performed By: #### C K, CKMB, CBC, BMP, BNP #### [address] Urea nitrogen [Mass/Vol] 17 mg/dL Normal 9-23 [facility] Comment on above: Performed By: #### C K, CKMB, CBC, BMP, BNP #### [address] COVID-19 Antigenon 2 COVID-19 Antigen Healthcare [...] its performance Bella Disclaimer characteristic determined by [facility] and Bella Disclaimer validated at [facility]. This Bella Disclaimer test has not [...] the duration of time the declaration that Blela Disclaimer circumstances exist justifying the authorization of Bella Disclaimer the emergency use of in vitro diagnostic tests for Bella Disclaimer detection of SARS-CoV-2 virus and/or diagnosis of Bella Disclaimer COVID-19 infection under section 564(b)(1) of the Bella Disclaimer Act, 21 U.S.C. 360bbb-3(b)(1), unless the Bella Disclaimer authorization is terminated or revoked sooner. PERFORMED BY: [place] [address] PATHOLOGIST SHIPPING TECHNICIAN SHIMA SY M.D. Normal [facility] Comment on above: Performed By: #### Conchis AGUIRRE, COVID-19 BELLA, SOFIANEG #### [address] Complete Blood Count Auto Di ffon 10-10-2021 Basophils (Bld) [#/Vol] 0.1 10*3/uL Normal 0.0-0.2 [facility] Comment on above: Result Comment: PERF ORMED BY: [place] [address] PATHOLOGIST SHIPPING TECHNICIAN SHIMA SY M.D. Performed By: #### C K, CKMB, CBC, BMP, BNP #### [address] Basophils/100 WBC (Bld) 1.4 % Normal . [facility] Comment on above: Performed By: #### C K, CKMB, CBC, BMP, BNP #### [address] Eosinophils (Bld) [#/Vol] 0.2 10*3/uL Normal 0.0-0.45 [facility] Comment on above: Performed By: #### C K, CKMB, CBC, BMP, BNP #### [address] Eosinophils/100 WBC (Bld) 2.3 % Normal . [facility] Comment on above: Performed By: #### C K, CKMB, CBC, BMP, BNP #### [address] Erythrocyte distribution width (RBC) [Ratio] 13.2 % Normal 11.9-15.3 [facility] Comment on above: Performed By: #### C K, CKMB, CBC, BMP, BNP #### [address] Hematocrit (Bld) [Volume fraction] 41.5 % Normal 34.0-46.4 [facility] Comment on above: Performed By: #### C K, CKMB, CBC, BMP, BNP #### [address] Hemoglobin (Bld) [Mass/Vol] 13.8 g/dL Normal 11.8-15.4 [facility] Comment on above: Performed By: #### C K, CKMB, CBC, BMP, BNP #### [address] Lymphocytes (Bld) [#/Vol] 3.6 10*3/uL Normal 1.00-4.8 [facility] Comment on above: Performed By: #### C K, CKMB, CBC, BMP, BNP #### [address] Lymphocytes/100 WBC (Bld) 39.0 % Normal . [facility] Comment on above: Performed By: #### C K, CKMB, CBC, BMP, BNP #### [address] MCH (RBC) [Entitic mass] 30.7 pg Normal 24.7-34.3 [facility] Comment on above: Performed By: #### C K, CKMB, CBC, BMP, BNP #### [address] MCV (RBC) [Entitic vol] 91.9 fL Normal 80-100 [facility] Comment on above: Performed By: #### C K, CKMB, CBC, BMP, BNP #### [address] Mean Corpuscular HGB Conc 33.4 g/dL Normal 32.0-35.0 [facility] Comment on above: Performed By: #### C K, CKMB, CBC, BMP, BNP #### [address] Monocytes (Bld) [#/Vol] 0.8 10*3/uL Normal 0.0-0.8 [facility] Comment on above: Performed By: #### C K, CKMB, CBC, BMP, BNP #### [address] Monocytes/100 WBC (Bld) 9.0 % Normal . [facility] Comment on above: Performed By: #### C K, CKMB, CBC, BMP, BNP #### [address] Neutrophils (Bld) [#/Vol] 4.4 10*3/uL Normal 1.8-7.7 [facility] Comment on above: Performed By: #### C K, CKMB, CBC, BMP, BNP #### [address] Neutrophils/100 WBC (Bld) 48.3 % Normal . [facility] Comment on above: Performed By: #### C K, CKMB, CBC, BMP, BNP #### [place] [address] [place] Nucleated RBC/100 WBC (Bld) [Ratio] 0.1 % Normal 0-0.5 [facility] Comment on above: Performed By: #### C K, CKMB, CBC, BMP, BNP #### [address] Platelet mean volume (Bld) [Entitic vol] 7.0 fL Normal 6.3-10.7 [facility] Comment on above: Performed By: #### C K, CKMB, CBC, BMP, BNP #### [facility] [address] Platelets (Bld) [#/Vol] 237 10*3/uL Normal 150-450 [facility] Comment on above: Performed By: #### C K, CKMB, CBC, BMP, BNP #### [address] RBC (Bld) [#/Vol] 4.51 10*6/uL Normal 3.60-5.00 [facility] Comment on above: Performed By: #### C K, CKMB, CBC, BMP, BNP #### [address] WBC (Bld) [#/Vol] 9.1 10*3/uL Normal 4.5-11.0 [facility] Comment on above: Performed By: #### C K, CKMB, CBC, BMP, BNP #### [address] Creatine Kinaseon 10-10-2021 CK [Catalytic activity/Vol] 69 U/L Normal 22-269 [facility] Comment on above: Performed By: #### C K, CKMB, CBC, BMP, BNP #### [address] Creatinine Kinase MBon 10-10 CK.MB [Mass/Vol] 3.1 ng/mL Normal 0.6-6.3 [facility] Comment on above: Performed By: #### F CARLA, COVID-19 BELLA, SOFIANEG #### [address] CKMB Relative Index 4.4 % High 0.00-2.50 [facility] Comment on above: Result Comment: PERF ORMED BY: [place] [address] PATHOLOGIST SHIPPING TECHNICIAN SHIMA SY M.D. Performed By: #### F CARLA, COVID-19 BELLA, SOFIANMELANI #### [facility] [address] ECG 12 lead ECGon 10-10-2021 ECG 12 lead ECG [facility] [place] [address] [place] [address] Electrocardiograph Report Signed Patient: Мария Lay MR#: [id number] : 1965 Acct:[id number] Age/Sex: 55 / F ADM Date: 10/10/21 Loc: ER Room: Type: [facility] ER Attending Dr: Ordering Provider: Kathryn Parks DO Date of Service: 10/10/21 ECG/ECG [...] longer evident in Anterior leads Confirmed by KATHRYN PARKS DO ([id number]), graphics editor Trent Garay ([id number]) on 10/11/2021 11:15:22 AM Referred By: Electronically Signed By:KATHRYN PARKS DO Transcribed By: MUS Signed By Kathryn Parks DO [id number] Normal [facility] Influenza A and B Antigenon 10-10-2021 [...] samples is recommended. Note 7 PERFORMED BY: [place] [address] PATHOLOGIST SHIPPING TECHNICIAN SHIMA SY M.D. Normal [facility] Comment on above: Performed By: #### F CARLA, COVID-19 BELLA, SOFIANEG #### [facility] [address] [place], [place] [id number] [facility] Bella Ag Negativeon 10-11-19 Bella Ag Negative Negative Normal Negative [facility] Comment on above: Result Comment: This is a duplicate Bella SARS Antigen (BLAYNE) result to be used for statistical tracking purpose only. PERFORMED BY: [place] [address] PATHOLOGIST SHIPPING TECHNICIAN SHIMA SY M.D. Performed By: #### F CARLA, COVID-19 BELLA, SOFIANEG #### [address] Troponin I High Sensitivityo n 10-10-2021 Troponin I High Sensitivity 12 pg/mL Normal 0-15 [facility] Comment on above: Result Comment: PERF ORMED BY: [place] [address] PATHOLOGIST SHIPPING TECHNICIAN SHIMA SY M.D. Performed By: #### H S TROP #### [facility] [address] [place] [address] XR chest 1V portableon 10-10 XR chest 1V portable [place] [address] XRay Report Signed Patient: Мария Lay MR#: [id number] : 1965 Acct:[id number] Age/Sex: 55 / F ADM Date: 10/10/21 Loc: ER Room: Type: [facility] ER Attending Dr: Ordering Provider: Kathryn Parks DO Date of Service: 10/10/21 XR/XR chest 1V portable: Chest Pain Copies to: Kathryn Parks DO XR chest 1V portable 10/10/2021 [...] David Walker M.D.10/10/2021 7:52 PM Dictation Location: [place] [address] Transcribed By: ROMEL 10/10/211951 Dictated By: David Walker II, MD 10/10/211949 Signed By: 10/10/211951 [facility] XR ANKLE LEFT 3+ VIEWS (SHERRY [...] bodies. IMPRESSION: No obvious fractures or dislocations. [facility] Workstation ID: [id number] Dictated by: LOULOU TREVINO on [place] Jul 29, 2021 8:55:54 PM EST Transcribed by: DARYA SCHILLING on [place] Jul 29, 2021 8:57:24 PM EST Finalized by: LOULOU TREVINO on [place] Jul 29, 2021 10:03:27 PM EST Normal [facility] Comment on above: Order Comment: Injur y/Trauma or Illness?:Injury/Trauma How long have you had these symptoms (acute/chronic)?:Acute Reason for exam?:pain History of cancer?:u Surgeries, chemotherapy, or radiation?:u Type of Exam?:Initial Mechanism of injury?:fall Vital Signs Date Time Vital Sign Value Performing Clinician Facility 09-22-2024 15:46-0400 Body mass index (BMI) [Ratio] 31.15 kg/m2 Margarette Estevez SOLUTIONS ARCHITECT CONSULTANT Work Phone: [facility] 09-22-2024 15:46-0400 Body temperature 98.4 [degF] Margarette Estevez SOLUTIONS ARCHITECT CONSULTANT Work Phone: [facility] 09-22-2024 15:46-0400 Body weight 87.54 kg Margarette Aritawesley SOLUTIONS ARCHITECT CONSULTANT Work Phone: [facility] 09-22-2024 15:46-0400 Diastolic blood pressure 80 mm[Hg] Margarette Aritaz SOLUTIONS ARCHITECT CONSULTANT Work Phone: [facility] 09-22-2024 15:46-0400 Heart rate 77 /min Margarette Aritawesley SOLUTIONS ARCHITECT CONSULTANT Work Phone: [facility] 09-22-2024 15:46-0400 Respiratory rate 20 /min Margarette Aritawesley SOLUTIONS ARCHITECT CONSULTANT Work Phone: [facility] 09-22-2024 15:46-0400 SaO2% (BldA) [Mass fraction] 97 % Margarette Estevez SOLUTIONS ARCHITECT CONSULTANT Work Phone: [facility] 09-22-2024 15:46-0400 Systolic blood pressure 124 mm[Hg] Margarette Estevez SOLUTIONS ARCHITECT CONSULTANT Work Phone: [facility] 08-17-2024 15:51-0500 Body height 167.64 cm Chinmay Manning MD Work Phone: [facility] 08-17-2024 15:51-0500 Body mass index (BMI) [Ratio] 32 kg/m2 Chinmay Manning MD Work Phone: [facility] 08-17-2024 15:51-0500 Body temperature 96.1 [degF] Chinmay Manning MD Work Phone: [facility] 08-17-2024 15:51-0500 Body weight 89.92 kg Chinmay Manning MD Work Phone: [facility] 08-17-2024 15:51-0500 Diastolic blood pressure 80 mm[Hg] Chinmay Manning MD Work Phone: [facility] 08-17-2024 15:51-0500 Heart rate 80 /min Chinmay Manning MD Work Phone: [facility] 08-17-2024 15:51-0500 Respiratory rate 18 /min Chinmay Manning MD Work Phone: [facility] 08-17-2024 15:51-0500 SaO2% (BldA) [Mass fraction] 99 % Chinmay Manning MD Work Phone: [facility] 08-17-2024 15:51-0500 Systolic blood pressure 131 mm[Hg] Chinmay Manning MD Work Phone: [facility] 06-23-2024 16:55-0500 Body height 167.6 cm Rosita Garza SOLUTIONS ARCHITECT CONSULTANT Work Phone: [facility] 06-23-2024 16:55-0500 Body mass index (BMI) [Ratio] 31.64 kg/m2 Rosita Garza SOLUTIONS ARCHITECT CONSULTANT Work Phone: [facility] 06-23-2024 16:55-0500 Body temperature 97.7 [degF] Rosita Garza SOLUTIONS ARCHITECT CONSULTANT Work Phone: [facility] 06-23-2024 16:55-0500 Body weight 88.91 kg Rosita Garza SOLUTIONS ARCHITECT CONSULTANT Work Phone: [facility] 06-23-2024 16:55-0500 Diastolic blood pressure 84 mm[Hg] Rosita Garza SOLUTIONS ARCHITECT CONSULTANT Work Phone: [facility] 06-23-2024 16:55-0500 Heart rate 111 /min Rosita Garza SOLUTIONS ARCHITECT CONSULTANT Work Phone: [facility] 06-23-2024 16:55-0500 Respiratory rate 16 /min Rosita Armijopatrick SOLUTIONS ARCHITECT CONSULTANT Work Phone: [facility] 06-23-2024 16:55-0500 SaO2% (BldA) [Mass fraction] 97 % Rosita Armijopatrick SOLUTIONS ARCHITECT CONSULTANT Work Phone: [facility] 06-23-2024 16:55-0500 Systolic blood pressure 122 mm[Hg] Rosita Armijopatrick SOLUTIONS ARCHITECT CONSULTANT Work Phone: [facility] 04-28-2024 15:13-0400 Body mass index (BMI) [Ratio] 31.13 kg/m2 Danya Najera PA Work Phone: [facility] 04-28-2024 15:13-0400 Body weight 88.81 kg Danya Najera PA Work Phone: [facility] 04-28-2024 15:13-0400 Diastolic blood pressure 72 mm[Hg] Danya Najera PA Work Phone: [facility] 04-28-2024 15:13-0400 Systolic blood pressure 120 mm[Hg] Danya Najera PA Work Phone: [facility] 03-24-2024 16:55-0400 Body height 168.9 cm Rosita Armijopatrick SOLUTIONS ARCHITECT CONSULTANT Work Phone: [facility] 03-24-2024 16:55-0400 Body mass index (BMI) [Ratio] 31.32 kg/m2 Rosita Armijopatrick SOLUTIONS ARCHITECT CONSULTANT Work Phone: [facility] 03-24-2024 16:55-0400 Body temperature 96.8 [degF] Rosita Armijopatrick SOLUTIONS ARCHITECT CONSULTANT Work Phone: [facility] 03-24-2024 16:55-0400 Body weight 89.36 kg Rosita Garza SOLUTIONS ARCHITECT CONSULTANT Work Phone: [facility] 03-24-2024 16:55-0400 Diastolic blood pressure 80 mm[Hg] Rosita Garza SOLUTIONS ARCHITECT CONSULTANT Work Phone: [facility] 03-24-2024 16:55-0400 Heart rate 102 /min Rosita Garza SOLUTIONS ARCHITECT CONSULTANT Work Phone: [facility] Comment on above: 96% O2 03-24-2024 16:55-0400 Systolic blood pressure 108 mm[Hg] Rosita Garza SOLUTIONS ARCHITECT CONSULTANT Work Phone: [facility] 03-17-2024 16:24-0400 Body height 168.91 cm MD Chinmay Manning Work Phone: [facility] 03-17-2024 16:24-0400 Body mass index (BMI) [Ratio] 31.8 kg/m2 MD Chinmay Manning Work Phone: [facility] 03-17-2024 16:24-0400 Body temperature 97.8 [degF] MD Chinmay Manning Work Phone: [facility] 03-17-2024 16:24-0400 Body weight 90.88 kg MD Chinmay Manning Work Phone: [facility] 03-17-2024 16:24-0400 Diastolic blood pressure 81 mm[Hg] MD Chinmya Manning Work Phone: [facility] 03-17-2024 16:24-0400 Heart rate 97 /min MD Chinmay Manning Work Phone: [facility] 03-17-2024 16:24-0400 Respiratory rate 18 /min MD Chinmay Manning Work Phone: [facility] 03-17-2024 16:24-0400 SaO2% (BldA) [Mass fraction] 94 % MD Chinmay Manning Work Phone: [facility] 03-17-2024 16:24-0400 Systolic blood pressure 129 mm[Hg] MD Chinmay Manning Work Phone: [facility] 12-09-2023 15:25-0400 Body height 168.91 cm MD Chinmay Manning Work Phone: [facility] 12-09-2023 15:25-0400 Body mass index (BMI) [Ratio] 32.3 kg/m2 MD Chinmay Manning Work Phone: [facility] 12-09-2023 15:25-0400 Body temperature 97.3 [degF] MD Chinmay Manning Work Phone: [facility] 12-09-2023 15:25-0400 Body weight 92.24 kg MD Chinmay Manning Work Phone: [facility] 12-09-2023 15:25-0400 Diastolic blood pressure 72 mm[Hg] MD Chinmay Manning Work Phone: [facility] 12-09-2023 15:25-0400 Heart rate 113 /min MD Chinmay Manning Work Phone: [facility] 12-09-2023 15:25-0400 Respiratory rate 16 /min MD Chinmay Manning Work Phone: [facility] 12-09-2023 15:25-0400 SaO2% (BldA) [Mass fraction] 96 % MD Chinmay Manning Work Phone: [facility] 12-09-2023 15:25-0400 Systolic blood pressure 112 mm[Hg] MD Chinmay Manning Work Phone: [facility] 01-17-2022 16:30-0400 Body height 168.91 cm Bahman Meneses Other [facility] Other 01-17-2022 16:30-0400 Body mass index (BMI) [Ratio] 21.62 kg/m2 Bahman Meneses Other [facility] Other 01-17-2022 16:30-0400 Body weight 61.69 kg Bahman Meneses Other [facility] Other 10-16-2021 16:45-0400 Body height 168.91 cm Bahman Meneses Other [facility] Other 10-16-2021 16:45-0400 Body mass index (BMI) [Ratio] 20.98 kg/m2 Bahman Meneses Other [facility] Other 10-16-2021 16:45-0400 Body weight 59.88 kg Bahman Meneses Other [facility] Other 07-12-2021 11:05-0500 Body height 168.91 cm Christiana Ginty Other [facility] Other 07-12-2021 11:05-0500 Body temperature 97.5 [degF] Christiana Ginty Other [facility] Other 07-12-2021 11:05-0500 Diastolic blood pressure 106 mm[Hg] Christiana Ginty Other [facility] Other 07-12-2021 11:05-0500 Respiratory rate 18 /min Christiana Ginty Other [facility] Other 07-12-2021 11:05-0500 SaO2% (BldA) [Mass fraction] 98 % Christiana Ginty Other [facility] Other 07-12-2021 11:05-0500 Systolic blood pressure 153 mm[Hg] Christiana Lazaro Other [facility] Other 07-04-2021 12:00-0500 Body height 168.91 cm Justin Che II Other [facility] Other 07-04-2021 12:00-0500 Body mass index (BMI) [Ratio] 17.88 kg/m2 Justin Che II Other [facility] Other 07-04-2021 12:00-0500 Body weight 51.03 kg Justin BeyBzzAgent Other [facility] Other Encounters Encounter Date Encounter Type Care Provider Facility Start: 09-22-2024 End: 09-22-2024 Office outpatient visit 25 minutes Margarette Estevez [employer] Work Phone: [facility] Comment on above: Primary hypertension (CMS/HCC) (Primary Dx); Bipolar II disorder (CMS/HCC); Chronic kidney disease, stage 3b (HCC) (CMS/HCC); Class 1 obesity due to excess calories without serious comorbidity with body mass index (BMI) of 33.0 to 33.9 in adult; Class 1 obesity due to excess calories with serious comorbidity in adult, unspecified BMI; Anxiety; Migraine without aura and without status migrainosus, not intractable (CMS/HCC); Cigarette nicotine dependence without complication; Allergy to nuts (other than peanuts); Mixed hyperlipidemia (CMS/HCC); Encounter for screening for lung cancer; Back spasm; Bipolar 2 disorder (CMS/HCC) Start: 09-22-2024 End: 09-22-2024 ambulatory MARGARETTE ESTEVEZ Not Available Start: 09-22-2024 End: 09-22-2024 Bamboo flowsheet Margarette Estevez [employer] Work Phone: [facility] Start: 09-22-2024 End: 09-22-2024 Bamboo flowsheet Margarette Estevez [employer] Work Phone: [facility] Start: 08-17-2024 End: 08-17-2024 ambulatory Chinmay Manning MD Work Phone: [facility] Work Phone: Start: 08-17-2024 End: 08-17-2024 Patient encounter procedure Chinmay Manning MD Work Phone: [facility] Physician [facility] Work Phone: Start: 08-07-2024 Non-patient / Non-visit Jeff Manning MD Work Phone: [facility] Physician [facility] Work Phone: Start: 07-29-2024 Registered Recurring Peyton Manning MD Work Phone: [facility] Start: 06-23-2024 End: 06-23-2024 Office outpatient visit 15 minutes Rosita Garza [employer] Work Phone: [facility] Comment on [...] Back spasm Start: 06-23-2024 End: 06-23-2024 ambulatory ROSITA LÓPEZTRICK Not Available Start: 06-23-2024 End: 06-23-2024 Bamboo flowsheet Rosita Garza [employer] Work Phone: [facility] Start: 06-23-2024 End: 06-23-2024 Bamboo flowsheet Rosita Garza [employer]CHIT[employer] CONSULTANT Work Phone: [facility] Start: 05-27-2024 End: 05-27-2024 Telephone encounter Danya CHATTERJEE Work Phone: [facility] Start: 04-28-2024 End: 04-28-2024 Patient encounter procedure Danya CHATTERJEE Work Phone: [facility] Work Phone: Start: 04-28-2024 End: 04-28-2024 Periodic preventive med est patient 40-64yrs Danya CHATTERJEE Work Phone: [facility] Comment on above: Well woman exam with routine gynecological exam; Breast cancer screening by mammogram; Postmenopausal state; Hormone imbalance Start: 04-28-2024 End: 04-28-2024 ambulatory DANYA NAJERA Not Available Start: 04-28-2024 End: 04-28-2024 Bamboo flowsheet Danya CHATTERJEE Work Phone: [facility] Start: 04-28-2024 End: 05-05-2024 Bamboo flowsheet Danya CHATTERJEE Work Phone: [facility] Start: 04-28-2024 End: 05-05-2024 Clinisync Result Encounter Danya CHATTERJEE Work Phone: [facility] External Department Unsolicited Start: 03-24-2024 End: 03-24-2024 Office outpatient visit 15 minutes Rosita Garza [employer] Work Phone: [facility] Comment on above: Primary hypertension (CMS/HCC) (Primary Dx); Stage 3a chronic kidney disease (HCC) (CMS/HCC); Class 1 obesity due to excess calories without serious comorbidity with body mass index (BMI) of 33.0 to 33.9 in adult; Tobacco dependency; Bipolar 2 disorder (CMS/HCC) Start: 03-24-2024 End: 03-24-2024 ambulatory ROSITA MARCK Not Available Start: 03-24-2024 End: 03-24-2024 Bamboo flowsheet Rosita Garza [employer]IT[employer] CONSULTANT Work Phone: [facility] Start: 03-24-2024 End: 03-24-2024 Bamboo flowsheet Rosita Kayla [employer]IT[employer] CONSULTANT Work Phone: [facility] Start: 03-17-2024 End: 03-17-2024 ambulatory MD Chinmay Manning Work Phone: [facility] Work Phone: Start: 03-17-2024 End: 03-17-2024 Patient encounter procedure MD Chinmay Manning Work Phone: [facility] Physician [facility] [place] Work Phone: Start: 02-21-2024 Non-patient / Non-visit MD Zeny Manning Work Phone: [facility] Work Phone: Start: 02-12-2024 End: 02-12-2024 ambulatory MARIE FAWWAD Not Available Start: 12-26-2023 Registered Recurring MD Jeff Manning Work Phone: [facility] Start: 12-09-2023 End: 12-09-2023 ambulatory MD Chinmay Manning Work Phone: [facility] Work Phone: Start: 12-09-2023 End: 12-09-2023 Patient encounter procedure MD Chinmay Manning Work Phone: [facility] Physician [facility] Work Phone: Start: 11-17-2023 End: 11-17-2023 ambulatory MARIE FAWWAD Not Available Start: 09-25-2023 Registered Recurring MD Jeff Manning Work Phone: [facility] Start: 08-22-2023 End: 08-22-2023 ambulatory Jorge Luis Browerdir Other [facility] Other Start: 08-22-2023 Clinisync Result Encounter Shaikh Cecilio WALKER Work Phone: [facility] External Department Unsolicited Start: 08-22-2023 Clinisync Result Encounter Shaikh Cecilio WALKER Work Phone: [facility] External Department Unsolicited Start: 08-22-2023 Telephone encounter Jorge Luis Jenn [facility] Start: 07-02-2022 End: 07-03-2022 ambulatory BECCA THOMAS Facility:[facility] Start: 06-07-2022 End: 06-08-[address] ETHAN COATS Facility:[facility] Start: 01-28-2022 End: 01-28-2022 ambulatory Bahman Meneses Other [facility] Other Start: 01-28-2022 Telephone encounter Bahman vasquez [facility] Start: 01-17-2022 End: 01-17-2022 ambulatory Bahman Meneses Other [facility] Other Start: 01-17-2022 Office outpatient vi sit 15 minutes Bahman Meneses [facility] Start: 11-09-2021 End: 11-09-2021 ambulatory Bahman Meneses Other [facility] Other Start: 11-09-2021 Telephone encounter Bahman vasquez [facility] Start: 10-16-2021 End: 10-16-2021 ambulatory Bahman Meneses Other [facility] Other Start: 10-16-2021 Office outpatient vi sit 15 minutes Bahman Meneses [facility] Start: 10-10-2021 End: 10-11-2021 Emergency department patient visit Ethan Coats Facility:[facility] Start: 07-28-2021 End: 08-04-2021 Evaluation and management of inpatient ELIANE Butler [facility] Start: 07-12-2021 End: 07-12-2021 ambulatory Christiana Ginty Other [facility] Other Start: 07-12-2021 Office outpatient vi sit 15 minutes Christiana Ginty [facility] Start: 07-04-2021 End: 07-04-2021 ambulatory Justin Forrest II Other [facility] Other Start: 07-04-2021 Office outpatient ne w 30 minutes Justin Forrest II [facility] Procedures Date Procedure Procedure Detail Performing Clinician Start: 05-14-2024 Mammography Danya CHATTERJEE Work Phone: Start: 04-28-2024 IGP,APTIMA HPV,AGE GDLN Danya CHATTERJEE Work Phone: Start: 04-28-2024 Microscopic observat ion [Identifier] in Cervix by Cyto stain Margarette Estevez NP Work Phone: Start: 08-22-2023 ALL BUN Shaikh Jose hernandez MD Work Phone: Start: 08-22-2023 [facility] CREATININE Shaikh Conchis pinto MD Work Phone: Plan of Treatment Date Care Activity Detail Author Start: 04-28-2027 Screening for malign ant neoplasm of cervix [facility] Start: 05-14-2025 Screening for malign ant neoplasm of breast Mammogram [facility] Start: 05-02-2025 End: 05-02-2025 Patient encounter procedure 05/02/2025 3:00 PM EDT Office Visit [facility] [address] [place] [address] Danya Najera PA [address] [place] [address] [facility] Start: 12-22-2024 End: 12-22-2024 Patient encounter procedure 12/22/2024 6:00 PM EDT Office Visit [facility] [address] [place] [address] Margarette Estevez, JAIME [address] [place] [phone] [facility] Start: 11-17-2024 Influenza vaccination Influenza Vacc ine (#1) [facility] Comment on above: Postponed from 03/14 (Patient Refused) Start: 09-22-2024 End: 09-22-2024 Patient encounter procedure 09/22/2024 3:20 PM EDT Office Visit [facility] [address] [place] [phone] Margarette Estevez NP [address] [place] [phone] Primary hypertension (CMS/HCC) (Primary Dx); Bipolar II disorder (CMS/HCC); Chronic kidney disease, stage 3b (HCC) (CMS/HCC); Class 1 obesity due to excess calories without serious comorbidity with body mass index (BMI) of 33.0 to 33.9 in adult; Class 1 obesity due to excess calories with serious comorbidity in adult, unspecified BMI; Anxiety; Migraine without aura and without status migrainosus, not intractable (CMS/HCC); Cigarette nicotine dependence without complication; Allergy to nuts (other than peanuts); Mixed hyperlipidemia (CMS/HCC) [facility] Comment on above: Primary hypertension (CMS/HCC) (Primary Dx); Bipolar II disorder (CMS/HCC); Chronic kidney disease, stage 3b (HCC) (CMS/HCC); Class 1 obesity due to excess calories without serious comorbidity with body mass index (BMI) of 33.0 to 33.9 in adult; Class 1 obesity due to excess calories with serious comorbidity in adult, unspecified BMI; Anxiety; Migraine without aura and without status migrainosus, not intractable (CMS/HCC); Cigarette nicotine dependence without complication; Allergy to nuts (other than peanuts); Mixed hyperlipidemia (CMS/HCC) Start: 06-23-2024 End: 06-23-2024 Patient encounter procedure [facility] Comment on above: Arrived Start: 04-28-2024 End: 04-28-2024 Patient encounter procedure 04/28/2024 3:00 PM EDT Office Visit [facility] [address] [place] [id number] Danya Najera PA [address] [place] [address] Arrived [facility] Comment on above: Arrived Start: 04-28-2024 End: 04-28-2025 DXA Skeletal system Views for bone density DEXA bone density Imaging Routine Postmenopausal state Expected: 04/28/2024 (Approximate), Expires: 04/28/2025 [facility] Comment on above: Expected: 04/28/2024 (Approximate), Expires: 04/28/2025 Start: 04-28-2024 End: 06-28-2025 MG Breast - bilateral Screening Bilateral screening mammogram Imaging Routine Breast cancer screening by mammogram Expected: 04/28/2024, Expires: 06/28/2025 [facility] Work Phone: Comment on above: Expected: 04/28/2024 , Expires: 06/28/2025 Start: 03-24-2024 End: 03-24-2024 Patient encounter procedure 03/24/2024 5:00 PM EDT Office Visit [facility] [address] [place] [address] Rosita Garza, JAIME [address] [place] [phone] Arrived [facility] Comment on above: Arrived Start: 03-14-2024 Influenza vaccination Influenza Vacc ine (#1) [facility] Start: 11-17-2023 End: 11-17-2023 Patient encounter procedure 11/17/2023 5:00 PM EDT Office Visit [facility] [address] [place] [address] Shaikh Hernandes MD [address] [facility] [place] [address] [facility] Start: 09-12-2023 Screening for malign ant neoplasm of breast Mammogram [facility] Comment on above: Postponed from 12/07 (Insurance / Financial) Start: 03-14-2023 Influenza vaccination Influenza Vacc ine (#1) [facility] Start: 2003 Screening for malign ant neoplasm of breast Mammogram [facility] Start: 12-07-1993 Screening for malign ant neoplasm of cervix [facility] Start: 12-07-1984 Screening for malign ant neoplasm of cervix Pap Smear [facility] Start: 1965 Medicare Annual Well ness (AWV) Medicare Annual Wellness (AWV) [facility] Start: 1965 Screening for malign ant neoplasm of colon [facility] Renal function 1999 panel - Serum or Plasma [facility] Renal function 1999 panel - Serum or Plasma [facility] Renal function 1999 panel - Serum or Plasma [facility] THIN PREP TIS PAP AN D HR HPV DNA THIN PREP TIS PAP AND HR HPV DNA Pathology and Cytology Routine Well woman exam with routine gynecological exam Ordered: 04/28/2024 [facility] Comment on above: Ordered: 04/28/2024 [facility] Immunizations Immunization Date Immunization Notes Care Provider [facility] 07-12-2021 tetanus and diphther ia toxoids, adsorbed, preservative free, for adult use (5 Lf of tetanus toxoid and 2 Lf of diphtheria toxoid) hCristiana Lazaro Other [facility] Other Payers Date Payer Category Payer [facility] [id number] 2022 Unknown [id number] 2022 Unknown [id number] 2021 Medicare [id number] 2021 Medicare (Managed Care) [facility] SHENA ROBISON [id number] 2021 Unknown [id number] 1965 Unknown [id number]. [id number] 1963 Unknown [id number]. [id number] 1963 Unknown [id number] [id number]. [id number] 1963 Unknown [id number]. 2.1259 1963 Unknown [id number]. 2.1259 1963 Unknown [id number]. 2.1258 1963 Unknown [id number] [id number]. 2.9 1963 Unknown [id number] [id number]. [id number] 1963 Unknown [id number]. 2.9 1959 Unknown [id number] Medicare [id number] Self-pay Self Pay [id number] Social History Date Type Detail Facility Unknown if ever smoked [facility] Other Start: 08-18-2023 End: 03-24-2024 Sex Assigned At 25 [facility] Other Start: 07-14-1983 End: 03-24-2024 Tobacco smoking status [facility] Smokes tobacco daily [facility] Start: 07-14-1983 History of tobacco use Cigarette Smo ker [facility] Start: 06-16-2023 End: 03-24-2024 Cigarettes smoked current (pack per day) - Reported 0.5 [facility] Start: 06-16-2023 End: 03-24-2024 Tobacco use and exposure Smokeless tobacco non-user [facility] Start: 08-18-2023 End: 09-22-2024 Alcohol intake Lifetime non-drinker (finding) [facility] Start: 1965 Sex Assigned At Not on file N [facility] Start: 12-09-2023 End: 12-09-2023 Tobacco smoking status MSIS Smoker (finding) [facility] Start: 1965 Sex Assigned At Female F [facility] Start: 08-17-2024 Sex Female (finding) [facility] Medical Equipment Procedure Code Equipment Code Equipment Origin al Text Equipment Identifier Dates Capsule endoscopy, for patency of lumen evaluation Video capsule endoscopy system [id number] FDA Start: 08-16-2019 Clinical Notes 04-08-2014 to 09-22-2024 Margarette Estevez NP - 09/22/2024 5:53 PM EDALEJANDRO MA - 09/22/2024 3:20 PM Yessenia Estevez NP - 09/22/2024 7:39 AM Yessenia Estveez NP - 09/22/2024 7:37 AM EDTPatient Instructions Note Date & Type Note Facility 09-22-2024 History of Presen t illness Narrative Associated Problem(s): Encounter for screening for lung cancer Patient meets requirements for low dose CT scan for lung cancer screening: age 55-80, patient is a current smoker or has quit in the last 15 years. Smoking history is > or equal to 30 pack-year. If needed the patient is able or willing to receive treatment. The patient is not currently exhibiting any s/s of lung cancer. We have discussed the benefits as well as harms of screening, follow up testing if needed, false positive rates. We have also discussed that this type of CT scan has less radiation exposure than a traditional lung CT scan. We have also discussed that it is important to follow with annual screening for this. The patient has also been counseled on the importance of smoking cessation. Declines CT scan Pt states that they never got her fosamax approved she is still waiting on antonio. Pt is needing refills on the trazadone and losartan, and flexeril Associated Problem(s): Mixed hyperlipidemia (CMS/HCC) No statin therapy Associated Problem(s): Colon cancer screening Colon cancer screening options were discussed with patient, as well as why colon cancer screening is indicated. Options are Colonoscopy: direct visualization, every 10 years (unless indicated more frequently), risks and benefits were discussed Cologuard: every 3 years, risks and benefits were discussed , contraindications were discussed (family hx of colon cancer, colon polyps) Patient has elected to: Associated Problem(s): Allergy to nuts (other than peanuts) Uses epi pen when needed Associated Problem(s): Cigarette nicotine dependence without complication The patient has been advised of the risks of continued smoking: stroke, NE, all forms of cancer, lung disease, and . Options for quitting smoking include: cold turkey, hypnosis, acupuncture, nicotine replacement meds (gum, lozenges, and patches), Buproprion, and Varenicline. At this time pt is encouraged to evaluate their goals for wanting to quit smoking, and reach out to provider when ready to start this process Has been prescribed patches in the past not helping Associated Problem(s): Migraine without aura and without status migrainosus, not intractable (CMS/HCC) Current meds: topirimate Migraine MARTINEZ per month: 1-2 Triggers: weather, stress Ever had MRI or seen neurology: yes, [facility] has not seen for some time Age at onset: started at age 28 after hyst Happy with therapy: yes Used to take nurtec and aimovig Only takes 1 topamax daily, so I will change script to reflect this Associated Problem(s): Bipolar II disorder (CMS/HCC) Follow with pscyh Associated Problem(s): Anxiety Follow w psych Associated Problem(s): Class 1 obesity due to excess calories with serious comorbidity in adult Discussed with patient their BMI (actual, verses recommended). We have also discussed lifestyle modifications: attempts to perform physical activity as chronic conditions allow, also to monitor dietary intake: increasing protein/fruits/veggies and lowering carb intake (unless contraindicated). Limit sodas, juices, and sugary drinks. Associated Problem(s): Chronic kidney disease, stage 3b (HCC) (CMS/HCC) Follows with Nephrology Recommend tight blood pressure control Limit nephrotoxic drugs 08/07: cr 1.69 Associated Problem(s): Primary hypertension (CMS/HCC) Please check blood pressure daily and record DASH diet Limit caffeine Take medication as directed Contact office if chest pain, pressure, dizziness, shortness of breath, swelling legs Recommend slow position changes Current meds: losartan documented in this encounter [facility] 09-22-2024 Instructions Margarette Estevez NP - 09/22/2024 3:20 PM EDT No medication changes documented in this encounter [facility] 09-22-2024 Evaluation note Diagnosis Primary hypertension (CMS/HCC)- Primary Unspecified essential [...] Back spasm Other symptoms referable to back Primary hypertension (CMS/HCC)- Primary Unspecified essential hypertension Bipolar II disorder (CMS/HCC) Other bipolar disorders Chronic kidney disease, stage 3b (HCC) (CMS/HCC) Class 1 obesity due to excess calories with serious comorbidity in adult, unspecified BMI Anxiety Anxiety state, unspecified Migraine without aura and without status migrainosus, not intractable (CMS/HCC) Cigarette nicotine dependence without complication Allergy to nuts (other than peanuts) Allergy to other foods Mixed hyperlipidemia (CMS/HCC) Mixed hyperlipidemia Encounter for screening for lung cancer Back spasm Other symptoms referable to back Bipolar 2 disorder (CMS/HCC) Other bipolar disorders [id number] History of Present illness Narrative* Rosita Garza NP - 06/23/2024 5:14 PM ESTAssociated Problem(s): Tobacco dependency Reordered nicotine patches. Smoking cessation counseling provided. * Rosita Garza NP - 06/23/2024 5:11 PM ESTAssociated Problem(s): Class 1 obesity due to excess calories without serious comorbidity with bodymass index (BMI) of 33.0 to 33.9 in [...] well as surgical options for weight loss. * Rosita Garza NP - 06/23/2024 5:11 PM ESTAssociated Problem(s): Stage 3a chronic kidney disease (HCC) (CMS/HCC) Follows closely with Nephrology. Avoid NSAIDS, Nephrotoxic agents. Most recent creatinine 1.60 eGFR: 33 * Rosita Garza NP - 06/23/2024 5:10 PM ESTAssociated Problem(s): Screening for hyperlipidemia Currently not managed with any medications.Dietary and lifestyle modifications implemented. Triglycerides elevated, pt adamant on not starting medications. Will recheck in July. * Rosita Garza NP - 06/23/2024 5:10 PM ESTAssociated Problem(s): Primary hypertension (CMS/HCC) Currently taking losartan 100mg Checks BP at home; Averages are less than 120's/80'; Denies orthostatic changes, dizziness, cough, shortness of breath, swelling in extremities. Continue current regimen. Given BP log, advised pt to record BP and bring log back with them to next visit. * Rosita Garza NP - 06/23/2024 5:00 PM EST Images from the original note were not included. Subjective Patient ID: Millicent Lay is a 58 [...] LEUKOCYTE ESTERASE URINE NEGATIVE R Resulting Agency [facility] CKD: Follows closely with Nephrology. Avoid NSAIDS, [...] Neurological: Negative for dizziness, tremors, syncope, weakness, light- headedness and headaches. Psychiatric/Behavioral: Negative for decreased concentration and suicidal ideas. The patient is notnervous/anxious. Hematological: Does not bruise/bleed easily. Endocrine: Negative [...] Visit Stage 3a chronic kidney disease (HCC) ([facility]) Follows closely with Nephrology. Avoid NSAIDS, Nephrotoxic agents. Most recent creatinine 1.60 eGFR: 33 Primary hypertension ([facility]/HCC) - Primary Currently taking losartan 100mg Checks BP at home; Averages are less than 120's/80'; Denies orthostatic changes, dizziness, cough, shortness of breath, swelling in extremities. Continue current regimen. Given BP log, advised pt to record BP and bring log back with them to next visit. Relevant Medications losartan (Cozaar) 100 MG tablet Migraine without aura and without status migrainosus, not intractable ([facility]/HCC) Relevant Medications topiramate (Topamax) 100 MG tablet Tobacco dependency Reordered nicotine patches. Smoking cessation counseling provided. Relevant Medications nicotine (Nicoderm CQ) 21 MG/24HR patch nicotine (Nicoderm CQ) 14 MG/24HR patch nicotine (Nicoderm, Step 3) 7 MG/24HR patch Bipolar 2 disorder ([facility]/HCC) Relevant Medications topiramate (Topamax) 100 MG tablet [...] (Flexeril) 10 MG tablet documented in this [facility]11-14-2024 Telephone encounter Note* Telephone Encounter - SHENA Stubbs - 05/27/2024 3:10 PM EST Spoke with patient regarding dexa scan results. Patient wishes to start using fosamax weekly. We discussed how to take and issue or concerns regarding acid reflux. Patient would like to try and if necessary may need to change to IV infusion of prolia [id number] Miscellaneous Notes* Telephone Encounter - SHENA Stubbs - 05/27/2024 3:10 PM EST Spoke with patient regarding dexa scan results. Patient wishes to start using fosamax weekly. We discussed how to take and issue or concerns regarding acid reflux. Patient would like to try and if necessary may need to change to IV infusion of prolia documented in this [facility]10-16-2024 History of Present illness Narrative* SHENA Stubbs - 04/28/2024 3:00 PM EDT Reason for Appointment: Patient ID: Millicent Lay [...] Transdermal, Every 24 hours, Use after patient hasused 21 mg dose. nicotine (Nicoderm CQ) 21 [...] [Sulfamethoxazole-Trimethoprim] Bee Pollen Bee Venom Hives Black Hague Flavor Walnuts Ciprofloxacin Hives Codeine Depakote [Valproic Acid] Dilaudid [Hydromorphone] E.E.S. [Erythromycin] Hydrocodone-Acetaminophen Lyrica [Pregabalin] Phenergan [Promethazine] Sulfamethoxazole Hives PROBLEMS Active Ambulatory Problems Diagnosis Date Noted Stage 3a chronic kidney disease (HCC) ([facility]) 06/16/2023 Primary hypertension ([facility]) 06/16/2023 Migraine without aura and without status migrainosus, not intractable ([facility]) 06/16/2023 Tobacco dependency 06/16/2023 Anxiety 07/28/2021 Allergy to nuts (other than peanuts) 08/18/2023 Abnormal renal ultrasound 08/18/2023 Bipolar 2 disorder ([facility]) 11/17/2023 Screening for hyperlipidemia 02/12/2024 Screening for diabetes mellitus 02/12/2024 Class 1 obesity due to excess calories without serious comorbidity with body mass index (BMI) of 33.0 to 33.9 in adult 02/12/2024 Resolved Ambulatory Problems Diagnosis Date Noted No Resolved Ambulatory Problems Past Medical History: Diagnosis Date Abnormal foot pulse Anxiety and depression ([facility]) Arthritis Atypical migraine ([facility]) Back problem Back spasm Blood pressure elevated without history of HTN Depression with anxiety Dry mouth Elevated serum creatinine History of IBS Hormone replacement therapy (postmenopausal) Irritable bowel syndrome with diarrhea Irritable bowel syndrome with diarrhea Kidney disease Migraine headache ([facility]) Migraines ([facility]) Multiple sclerosis ([facility]) Multiple sclerosis ([facility]) Onychomycosis PTSD (post-traumatic stress disorder) (CMS/HCC) Stomach problems Urinary frequency Vision impairment HISTORY PAST MEDICAL HISTORY SOCIAL HISTORY Past Medical History: Diagnosis Date Abnormal foot pulse Anxiety and depression (CMS/HCC) Arthritis Atypical migraine (CMS/HCC) Back problem Back spasm Blood pressure elevated [...] nursing note reviewed. Exam conducted with a graduate research assistant present. Vitals: Estimated body mass index is [...] behalf of: SHENA Stubbs [facility] [id number] History of Present illness Narrative* Rosita Garza, JAIME - 03/24/2024 5:43 PM EDTAssociated Problem(s): Class 1 obesity due to excess calories without serious comorbidity with bodymass index (BMI) of 33.0 to 33.9 in [...] well as surgical options for weight loss. * Rosita Garza NP - 03/24/2024 5:43 PM EDTAssociated Problem(s): Bipolar 2 disorder (CMS/HCC) Follows in [place]. Mood is stable, denies depressive symptoms. On topamax, invega and trazodone. * Rosita Garza NP - 03/24/2024 5:42 PM EDTAssociated Problem(s): Tobacco dependency Using nicotine patches. States it is working ok . Will add lozenges PRN. * Rosita Garza NP - 03/24/2024 5:39 PM EDTAssociated Problem(s): Primary hypertension (CMS/HCC) Currently taking losartan 100mg Checks BP at home; Averages are 120's/80's; Denies orthostatic changes, dizziness, cough, shortness of breath, swelling in extremities. Continue current regimen. Given BP log, advised pt to record BP and bring log back with them to next visit. * Rosita Garza NP - 03/24/2024 5:00 PM EDT Images from the original note were not included. Subjective Patient ID: Millicent Lay is a 58 [...] Neurological: Negative for dizziness, tremors, syncope, weakness, light- headedness and headaches. Psychiatric/Behavioral: Negative for decreased concentration and suicidal ideas. The patient is notnervous/anxious. Hematological: Does not bruise/bleed easily. Endocrine: Negative [...] lozenge Bipolar 2 disorder (CMS/HCC) Follows in [place]. Mood is stable, denies depressive symptoms. On [...] options for weight loss. documented in this [facility]09-11-2024 Instructions* Patient Instructions* Rosita Garza NP - 03/24/2024 5:00 PM EDT [...] to include 150 minutes per week of moderate- intensity, and 75 minutes per week of vigorous aerobic activity documented in this [facility]07-18-2022 Evaluation note* Encounter Date Diagnosis Assessment Notes Treatment Notes Treatment Clinical Notes Jan, GERD (gastroesophageal reflux disease) (ICD-10 - K21.9) [facility] Other 07-07-2022 Evaluation note* Encounter Date Diagnosis Assessment Notes Treatment Notes Treatment Clinical Notes Jan, Diarrhea (ICD-10 - R19.7) Continue Dicyclomine Jan, GERD (gastroesophageal reflux disease) (ICD-10 - K21.9) Continue Omeprazole without change [facility] Other 04-29-2022 Evaluation note* Encounter Date Diagnosis Assessment Notes Treatment Notes Treatment Clinical Notes Oct, GERD (gastroesophageal reflux disease) (ICD-10 - K21.9) [facility] Other 04-05-2022 Evaluation note* Encounter Date Diagnosis Assessment Notes Treatment Notes Treatment Clinical Notes Oct, Diarrhea, unspecified (ICD-10 - R19.7) CONTINUE DICYCLOMINE DIRECTED RTO 3 MONTHS Oct, GERD (gastroesophageal reflux disease) (ICD-10 - K21.9) STOP CARAFATE [facility] Other 12-30-2021 Evaluation note* Encounter Date Diagnosis [...] With Stitches: Care Instructions material was printed [facility] Other 12-22-2021 Evaluation note* Encounter Date Diagnosis [...] elevation therapy. Recommended that she continue with [id number] oral anti-inflammatories . Informed her that she [...] 4 weeks to check on her progress. [facility] Other 09-26-2014 History general Narrative - Reported* [...] Hospitalization History [facility] [place] [facility] Other 09-26-2014 History general Narrative - Reported* [...] Hospitalization History [facility] [place] [facility] Other Evaluation noteNo InformationNortInf[employer] Other Evaluation note* Diagnosis Onset Date Resolution Status Chronic kidney disease, stage 3b acute Hypertensive nephropathy acu te Lesion of left asa'carsarmiut kidney acute [facility] Work Phone: Evaluation note* Diagnosis Onset Date Resolution Status Chronic kidney disease, stage 3b acute Hypertensive nephropathy acu te Hypomagnesemia acute Lesion of left asa'carsarmiut kidney acute [facility] Work Phone: Evaluation note* Diagnosis Primary hypertension ([facility]/HCC)- Primary Unspecified essential hypertension Stage 3a chronic kidney disease (HCC) ([facility]/HCC) Migraine without aura and without status migrainosus, not intractable ([facility]/HCC) Tobacco dependency Tobacco use disorder Primary hypertension ([facility]/HCC)- Primary Unspecified essential hypertension Stage 3a chronic kidney disease (HCC) ([facility]/HCC) Abnormal renal ultrasound Primary hypertension ([facility]/HCC)- Primary Unspecified essential hypertension Stage 3a chronic kidney disease (HCC) ([facility]/HCC) Tobacco dependency Tobacco use disorder Bipolar 2 disorder ([facility]/HCC) Other bipolar disorders Allergic reaction to bee sting Screening for hyperlipidemia- Primary Screening for lipoid disorders Screening for diabetes mellitus Primary hypertension ([facility]/HCC) Unspecified essential hypertension Tobacco dependency Tobacco use disorder Class 1 obesity due to excess calories without serious comorbidity with body mass index (BMI) of 33.0 to 33.9 in adult Primary hypertension ([facility]/HCC)- Primary Unspecified essential hypertension Stage 3a chronic kidney disease (HCC) ([facility]/HCC) Class 1 obesity due to excess calories without serious comorbidity with body mass index (BMI) of 33.0 to 33.9 in adult Tobacco dependency Tobacco use disorder Bipolar 2 disorder ([facility]/HCC) Other bipolar disorders Well woman exam with routine gynecological exam Routine gynecological examination Breast cancer screening by mammogram Postmenopausal state Asymptomatic postmenopausal status (age-related) (natural) Hormone imbalance [facility] Diagnosis Primary hypertension (CMS/HCC)- Primary Unspecified essential hypertension Stage 3a chronic kidney disease (HCC) ([facility]/HCC) Migraine without aura and without status migrainosus, not intractable ([facility]/HCC) Tobacco dependency Tobacco use disorder Primary hypertension ([facility]/HCC)- Primary Unspecified essential hypertension Stage 3a chronic kidney disease (HCC) (CMS/HCC) Abnormal renal ultrasound Primary hypertension ([facility]/HCC)- Primary Unspecified essential hypertension Stage 3a chronic kidney disease (HCC) ([facility]/HCC) Tobacco dependency Tobacco use disorder Bipolar 2 disorder (CMS/HCC) Other bipolar disorders Allergic reaction to bee sting Screening for hyperlipidemia- Primary Screening for lipoid disorders Screening for diabetes mellitus Primary hypertension ([facility]/HCC) Unspecified essential hypertension Tobacco dependency Tobacco use disorder Class 1 obesity due to excess calories without serious comorbidity with body mass index (BMI) of 33.0 to 33.9 in adult Primary hypertension ([facility]/HCC)- Primary Unspecified essential hypertension Stage 3a chronic kidney disease (HCC) ([facility]/HCC) Class 1 obesity due to excess calories without serious comorbidity with body mass index (BMI) of 33.0 to 33.9 in adult Tobacco dependency Tobacco use disorder Bipolar 2 disorder ([facility]/HCC) Other bipolar disorders Osteopenia, unspecified location- Primary documented in this encounter [facility] HealthcareEvaluation [facility]* Diagnosis Primary hypertension ([facility]/HCC)- Primary Unspecified essential hypertension Stage 3a chronic kidney disease (HCC) ([facility]/HCC) Class 1 obesity due to excess calories without serious comorbidity with body mass index (BMI) of 33.0 to 33.9 in adult Tobacco dependency Tobacco use disorder Bipolar 2 disorder ([facility]/HCC) Other bipolar disorders documented in this encounter [facility]* Diagnosis Primary hypertension ([facility]/HCC)- Primary Unspecified essential hypertension Stage 3a chronic kidney disease (HCC) ([facility]) Migraine without aura and without status migrainosus, not intractable ([facility]) Tobacco dependency Tobacco use disorder Primary hypertension ([facility]/HCC)- Primary Unspecified essential hypertension Stage 3a chronic kidney disease (HCC) ([facility]/HCC) Abnormal renal ultrasound Primary hypertension ([facility]/HCC)- Primary Unspecified essential hypertension Stage 3a chronic kidney disease (HCC) ([facility]/HCC) Tobacco dependency Tobacco use disorder Bipolar 2 disorder ([facility]/HCC) Other bipolar disorders Allergic reaction to bee sting Screening for hyperlipidemia- Primary Screening for lipoid disorders Screening for diabetes mellitus Primary hypertension ([facility]/HCC) Unspecified essential hypertension Tobacco dependency Tobacco use disorder Class 1 obesity due to excess calories without serious comorbidity with body mass index (BMI) of 33.0 to 33.9 in adult Primary hypertension ([facility]/HCC)- Primary Unspecified essential hypertension Stage 3a chronic kidney disease (HCC) ([facility]/HCC) Class 1 obesity due to excess calories without serious comorbidity with body mass index (BMI) of 33.0 to 33.9 in adult Tobacco dependency Tobacco use disorder Bipolar 2 disorder ([facility]/HCC) Other bipolar disorders Primary hypertension (CMS/HCC)- Primary Unspecified essential hypertension Stage 3a chronic kidney disease (HCC) ([facility]/HCC) Class 1 obesity due to excess calories without serious comorbidity with body mass index (BMI) of 33.0 to 33.9 in adult Screening for hyperlipidemia Screening for lipoid disorders Tobacco dependency Tobacco use disorder Bipolar 2 disorder (CMS/HCC) Other bipolar disorders Migraine without aura and without status migrainosus, not intractable (CMS/HCC) Back spasm Other symptoms referable to back [facility]* Diagnosis Onset Date Resolution Status Admit Date Chronic kidney disease, stag e 3b acute August 17 3:52pm Cigarette smoker acute August 17, 2024 3:52pm Hypertensive nephropathy acute August 17, 2024 3:52pm Hypomagnesemia acute August 172024 3:52pm Lesion of left asa'carsarmiut kidney acute August 17, 2024 3:52pm [facility] Work Phone: Summary Purpose Family History No [...] Date/ Time Advance Directives No May 9:58am Advance Directive Response Recorded Date/ Time Advance Directives No May 8:58am Chief Complaint and Reason for Visit Chief Complaint CKD 3 Reason for Visit Chronic kidney disea se, stage 3b Hypertensive nephropathy Lesion of left asa'[place] kidney Chief Complaint RENAL 3 MONTH F/U Reason for Visit Chronic kidney disea se, stage 3b Hypertensive nephropathy Hypomagnesemia Lesion of left asa'[place] kidney Chief Complaint Admit Date July 29, 2024 3 :50pm RENAL 4 MONTH F/U August 17, 2024 3 :52pm Reason for Visit Admit Date Chronic kidney disease, stage 3b Februar 2024 3:52pm Cigarette smoker August 17, 2024 3 :52pm Hypertensive nephropathy August 17, 2 025 3:52pm Hypomagnesemia August 17, 2024 3 :52pm Lesion of left asa'carsarmiut kidney August 3:52pm Additional Source Comments INFORMATION SOURCE (unrecogn ized section and content) DATE CREATED AUTHOR 08/08/2021 [facility] DATE CREATED AUTHOR AUTHOR'S ORGANIZ ATION 08/17/2022 [facility] DATE CREATED AUTHOR AUTHOR'S ORGANIZ ATION 11/27/2022 [facility] DATE CREATED AUTHOR AUTHOR'S ORGANIZ ATION 09/25/2024 [facility] EPIC REASON FOR VISIT (unrecogniz ed section and content) Reason Comments Well Women Visit Reason Comments Follow-up Care Teams (unrecognized sec tion and content) Core Driller Helper Relationship Specialty Start Date End Date Shaikh Hernandes MD [address] [place] [id number] PCP - General Internal Medicine 08/11/23 Margarette Estevez NP [address] [place] [phone] Nurse Practitioner Family Medicine 05/26/23 Team Status: [...] March 17, 2024 End: March 17, 2024 Core Driller Helper Relationship Specialty Start Date End Date Shaikh Hernandes MD [address] [place] [phone] PCP - General Internal Medicine 08/11/23 Margarette Estevez NP [address] [place] [phone] Nurse Practitioner Family Medicine 05/26/23 Core Driller Helper Relationship Specialty Start Date End Date Shaikh Hernandes MD [address] [place] [phone] PCP - General Internal Medicine 08/11/23 Margarette Estevez NP [address] [place] [phone] Nurse Practitioner Family Medicine 05/26/23 Core Driller Helper Relationship Specialty Start Date End Date Shaikh Hernandes MD [address] [place] [phone] PCP - General Internal Medicine 08/11/23 Margarette Estevez NP [address] [place] [phone] Nurse Practitioner Family Medicine 05/26/23 Core Driller Helper Relationship Specialty Start Date End Date Shaikh Hernandes MD [address] [place] [phone] PCP - General Internal Medicine 08/11/23 Shaikh Hernandes MD [address] [place] [phone] PCP - [facility] [employer] 04/13/24 Margarette Estevez NP [address] [place] [address] Nurse Practitioner Family Medicine 05/26/23 Core Driller Helper Relationship Specialty Start Date End Date Shaikh Hernandes MD [address] [place] [phone] PCP - General Internal Medicine 08/11/23 Margarette Estevez NP [address] [place] [phone] Nurse Practitioner Family Medicine 05/26/23 Core Driller Helper Relationship Specialty Start Date End Date Shaikh Hernandes MD [address] [place] [phone] PCP - General Internal Medicine 08/11/23 Shaikh Hernandes MD [address] [place] [phone] PCP - [facility] [employer] 04/13/24 Margarette Estevez NP [address] [place] [address] Nurse Practitioner Family Medicine 05/26/23 Core Driller Helper Relationship Specialty Start Date End Date Shaikh Hernandes MD [address] [place] [phone] PCP - General Internal Medicine 08/11/23 Shaikh Hernandes MD [address] [place] [phone] PCP - [facility] 04/13/24 Margarette Estevez NP [address] [place] [phone] Nurse Practitioner [facility] Medicine 05/26/23 Core Driller Helper Relationship Specialty Start Date End Date Shaikh Hernandes MD [address] [place] [phone] PCP - General Internal Medicine 08/11/23 Margarette Estevez NP [address] [place] [phone] Nurse Practitioner [facility] 05/26/23 Team Status: Active Member Role Status Dates NIKI MalloyC Primary Care Provider Ac tive Team Status: Active Member Role Status Dates Chinmay Manning MD Attending Provider Active Start: July 29, 2024 Team Status: Active Member Role Status Dates Ethan Coats DO Primary Care Provider Active Start: August 07, 2024 Debby Dominguez MD Attending Provider Active Star t: August 07, 2024 Team Status: Inactive Member Role Status Dates Debby Dominguez MD Attending Provider Active Star t: August 17, 2024 End: August 17, 2024 Rosita Garza NP-C Primary Care Provider Ac tive Start: August 17, 2024 End: August 17, 2024 Core Driller Helper Relationship Specialty Start Date End Date Shaikh Hernandes MD [address] [place] [phone] PCP - General Internal Medicine 08/11/23 Shaikh Hernandes MD [address] [place] [phone] PCP [facility] 04/13/24 Margarette Estevez NP [address] [place] [phone] Nurse Practitioner Family Medicine 05/26/23 Core Driller Helper Relationship Specialty Start Date End Date Shaikh Hernandes MD [address] [place] [phone] PCP - General Internal Medicine 08/11/23 Shaikh Hernandes MD [address] [place] [phone] [facility] 04/13/24 Margarette Estevez NP [address] [place] [phone] Nurse Practitioner Family Medicine 05/26/23 Goals (unrecognized [...] BE BASED ON THE PRIMARY CLINICAL RECORDS. [facility] provides no warranty or guarantee of the accuracy or completeness of information in this document.
[2024-12-14 09:33] LABS: Hematocrit 46.7 % (36.0-48.0); Hemoglobin 15.7 g/dL (12.0-16.0); Mean Corpuscular HGB Conc 33.6 g/dL (29.9-35.2); Mean Corpuscular Hemoglobin 30.6 pg (26.7-34.0); Mean Platelet Volume 9.2 fL (9.5-13.5); Platelet Count 258 10^3/uL (150-450); Red Blood Count 5.13 10^6/uL (4.20-5.40); Red Cell Distribution Width 12.5 % (11.0-15.0); White Blood Count 7.7 10^3/uL (4.0-11.0)
[2024-12-14 09:53] LABS: Creatinine Urine Random 203.31 mg/dL (20.00-300.00); Microalbum Creatinine Ratio Ur 7.3 mg/g (0.0-29.9); Microalbumin Urine Random 1.5 mg/dL (<=30.0); Protein Creatinine Ratio Urine 0.12; Total Protein Urine Random 24.8 mg/dL (<=11.9)
[2024-12-14 10:16] LABS: Albumin Level 3.8 g/dL (3.4-5.0); Anion Gap 19.2; BUN Creatinine Ratio 18.4; Calcium 8.9 mg/dL (8.5-10.1); Carbon Dioxide 20.7 mmol/L (21.0-32.0); Chloride 105 mmol/L (98-107); Estimated GFR (African America 46 (>=60 mL/min/1.73m^2); Estimated GFR (Non-African Ame 38 (>=60 mL/min/1.73m^2); Glucose 110 mg/dL (74-106); Magnesium 1.9 mg/dL (1.8-2.4); Phosphorus 3.4 mg/dL (2.6-4.7); Potassium 3.9 mmol/L (3.5-5.1); Sodium 141 mmol/L (136-145); Uric Acid 3.6 mg/dL (2.6-6.0)
[2024-12-15 13:08] LABS: PTH, Intact 25 pg/mL (15-65)
== END 2024-12-14 09:07 | disposition home or self-care (01) ==
LOC: LAB 09:07
PROVIDERS: Visit Provider Internal Medicine Nephrology
DX: E83.42 Hypomagnesemia (principal); N28.9 Disorder of kidney and ureter, unspecified; I12.9 Hypertensive chronic kidney disease with stage 1 through stage 4 chronic kidney disease, or unspecified chronic kidney disease; N18.32 Chronic kidney disease, stage 3b; F17.210 Nicotine dependence, cigarettes, uncomplicated
CPT/HCPCS: 36415; 80069; 81003; 82043; 82306; 82570; 83735; 83970; 84156; 84550; 85027

== ENCOUNTER 2025-05-02 19:51 | Outpatient (REF) | payer BC, OTHER, SELFPAY ==
--- OUTSIDE RECORDS SUMMARY | 2025-04-25 13:39 | XMS_ITS | Continuity of Care Document ---
Author Organization [facility] Address [address] [place] [address] Phone Care Team Providers Care Muffle Worker Name Role Phone Margarette Estevez [employer] Primary Care Provider [phone] Margarette Estevez NP-C Attending Provider Care Teams Patient Care Team Team Status: Active Member Role Status Dates Margarette Estevez NP-Janice Primary Care Provider Active Patient Care Team Team Status: Inactive Member Role Status Dates Margarette Estevez NP-Janice Primary Care Provider Active Start: April 25, 2025 End: April 25, 2025 NANCY Chavira Attending Provider Active Start: April 25, 2025 End: April 25, 2025 Chief Complaint and Reason for Visit Chief Complaint Admit Date 2M April 25, 2025 4 :46pm Reason for Visit Admit Date Asthma April 25, 2025 4 :46pm Chronic kidney disease, stage 3b April 25, 2025 4:46pm Essential hypertension April 25 4:46pm Former smoker April 25, 2025 4 :46pm Migraine April 25, 2025 4 :46pm Allergies, Adverse Reactions, Alerts Allergen Type Severity Reaction Last Updated Verified Status Comments pregabalin Allergy Mild Unknown Reaction December 21, 2024 9:30am Yes Active pain worse ciprofloxacin Allergy Unknown itching, nausea December 21, 2024 9:30am Yes Active gabapentin Allergy Unknown Unknown Reaction December 21, 2024 9:30am Yes Active hydromorphone Allergy Unknown sick December 21, 2024 9:30am Yes Active bee pollen Allergy Unknown Anaphylaxis December 21, 2024 9:30am Yes Active codeine Allergy Unknown Hives December 21, 2024 9:30am Yes Active divalproex sodium Allergy Unknown itching, nausea December 21, 2024 9:30am Yes Active sulfamethoxazole Allergy Unknown Hives December 9:30am Yes Active trimethoprim Allergy Unknown Hives December 21, 2024 9:30am Yes Active peanut Adverse Reaction Unknown Rash December 21, 2024 9:30am Yes Active promethazine Adverse Reaction Unknown Rash December 21, 2024 9:30am Yes Active walnuts Allergy Unknown Anaphylaxis July 03, 2021 3:12am No Active Social History Smoking Status Status Start Date End Date Date of Observa tion Smokes tobacco daily (finding) December 21, 2024 3:57pm Observation Status Observation Response Date of Response Legal Sex Female (finding) Sex Assigned At Female 1965 Family History Relationship Condition Age at Onset Recorded Date/T manuel mother Hypertension Unknown Congestive heart failure Unknown Heart disease Unknown brother Heart disease Unknown sister Heart disease Unknown brother Diabetes mellitus Unknown Heart disease Unknown father Unknown Motor vehicle accident Unknown family member Unknown mother Heart disease Unknown Unknown Hypertension Unknown sister Unknown Heart disease Unknown Problems Active Problems Medical Problem Onset Date Status Chronic kidney disease, stage 3b Unknown Active Lumbar contusion Unknown Active Fall down stairs Unknown Active Anxiety Unknown Active Migraine Unknown Active Atypical chest pain Unknown Active Essential hypertension Unknown Active Former smoker Unknown Active Rectal bleeding Unknown Active Cigarette smoker Unknown Active Lesion of left [place] kidney Unknown Act maame Hypertensive nephropathy Unknown Active Asthma Unknown Active Contusion of multiple sites of left leg Unknown Active Left ankle sprain Unknown Active Hypomagnesemia Unknown Active Medications Medication Status Dose Units Route Directions Qty Days St art Date Stop Date End Date Instructions Adherence Magnesium Oxide 400 mg (241.3 mg magnesium) tablet Discont inued 0 .ROUTE .COMPLEX 2024 9:56am Augus t 2024 10:18 am TAKE 1 TABLETBY MOUTH EVERY DAY Magnesium Oxide 400 mg (241.3 mg magnesium) tablet Active 0 .ROUTE .COMPLEX February 16, 2025 10:18a m TAKE 1 TABLETBY MOUTH EVERY DAY Complies with drug therapy Dicyclomine 10 mg Capsule Discont inued 10 MG PO Three times daily 2019 1:00am December 09, 2023 3:31p m Tizanidine 4 mg tablet Discont inued 4 MG PO As Directed [facility] er 2019 1:00am December 09, 2023 3:31p m Citalopram 20 mg tablet Discont inued 20 MG PO As Directed [facility] er 2019 1:00am December 09, 2023 3:31p m Buspirone 10 mg tablet Discont inued 10 MG PO As Directed [facility] er 2019 1:00am December 09, 2023 3:31p m Conjugated Estrogens (Premarin) 0.625 mg tablet Discont inued 0.625 MG PO Daily [facility] er 2019 1:00am December 09, 2023 3:31p m Erenumab-Ao oe (Aimovig Autoinjecto r) 70 mg/mL auto-inject or Discont inued 70 MG SUBCUT As Directed [facility] er 2019 1:00am December 09, 2023 3:31p m Sucralfate 1 gram tablet Discont inued 1 TAB PO Four times daily September 23, 2017 12:00a m December 09, 2023 3:31p m Sertraline 100 mg tablet Discont inued 100 MG PO Daily September 23, 2017 12:00a m Dece patricia 2019 1:21p m Trazodone 150 mg tablet Discont inued 50 MG PO Bedtime September 23, 2017 12:00a m December 09, 2023 3:28p m Conjugated Estrogens 0.625 mg tablet Discont inued 0.625 MG PO Daily September 23, 2017 12:00a m Febru ed 2019 7:38a m Topiramate 100 mg tablet Discont inued 100 MG PO Daily September 23, 2017 12:00a m December 09, 2023 3:31p m Omeprazole 20 mg capsule,del ayed release(DR/ EC) Active 20 MG PO Daily December 09, 2023 12:00a m Complies with drug therapy Topiramate (Topamax) 100 mg tablet Discont inued 100 MG PO Daily December 09, 2023 12:00a m Octob er 2024 5:28p m Trazodone 100 mg tablet Active 200 MG PO Daily at bedtime December 09, 2023 12:00a m Complies with drug therapy Paliperidon e 3 mg tablet extended release 24 hr Discont inued 3 MG PO Every morning December 09, 2023 12:00a m Febru ed 2024 4:56p m Losartan 100 mg tablet Discont inued 100 MG PO Daily December 09, 2023 12:00a m Octob er 2024 5:28p m Cyclobenzap rine 10 mg tablet Discont inued 10 MG PO Three times daily as needed December 09, 2023 12:00a m Octob er 2024 5:27p m Epinephrine 0.3 mg/0.3 mL auto-inject or Active 0.3 ML IM as needed December 09, 2023 12:00a m Complies with drug therapy Estradiol 1 mg tablet Active 1 MG PO Daily December 09, 2023 12:00a m Complies with drug therapy Paliperidon e 3 mg tablet extended release 24hr Active 3 MG PO Every morning Februa ry 2024 4:56pm Complies with drug therapy Cyclobenzap rine 10 mg tablet Active 10 MG PO Daily at bedtime as needed Octobe r 2024 5:26pm Complies with drug therapy Nicotine 21 mg/24 hr patch 24 hour Discont inued TRANSD ERML 2023 12:00a m Octob er 2024 5:26p m Magnesium Oxide 400 mg magnesium tablet Discont inued 400 MG PO Daily 2023 12:00a m Febru ed 2024 9:56a m Alendronate -Vitamin D3 70 mg- 5,600 unit tablet Discont inued 1 TAB PO every week Aprobe r 2024 12:00a m Octob er 2024 5:26p m Losartan 100 mg tablet Active 100 MG PO Daily Aprobe r 2024 5:27pm Complies with drug therapy Topiramate (Topamax) 100 mg tablet Active 100 MG PO Daily Aprobe r 2024 5:27pm Complies with drug therapy Varenicline Tartrate (Chantix) 1 mg tablet Active 1 MG PO Twice daily Octobe r 2024 12:00a m Complies with drug therapy Immunizations Immunization Event Date Not Given Reason Dose Number [employer] Lot Number Vaccine Information Statement (VIS) Detail Administration Location Tetanus, Diphtheria adult, 5 Lf pres free abs July 12, 2021 Medical Equipment Device Date Implanted Device Details Video capsule endoscopy system August 16 RAYMON: [id number] Issuing Agency: [facility] Device Id: [id number] Expiration Date: 2020-04-28 Lot Number: [id number] Serial Number: [id number] Vital Signs Vital Reading Result Reference Range Collection Date/Time Height 66.5 [in_i] April 25, 2 025 5:14pm Weight 78.15 kg April 25, 025 5:14pm Body Temperature 97.9 [degF] 97.6-99.0 April 5:14pm Heart Rate 80 /min 60-100 April 25, 025 5:14pm Respiratory rate 20 /min 12-24 April 5:14pm Oxygen saturation by Pulse oximetry 93 % 95-100 April 25, 2025 5 :14pm BP Systolic 110 mm[Hg] 100-140 April 25, 2 025 5:14pm BP Diastolic 68 mm[Hg] 60-100 April 25, 2 025 5:14pm BMI (Body Mass Index) 27.3 kg/m2 Octobe r 2024 5:14pm Advance Directives Advance Directive Response Recorded Date/ Time Advance Directives No May 9:58am Insurance Providers Guarantor Мария Ortiz Ruffing Address [address] [place] [address] [place] [address] Contact Info. Home Phone: Payer Policy Id Subscriber's Name Subscriber Id Effectiv e Date Expiration Date Holly STACY/BS [id number] 8 Ramon S Ruffing [id number] Medicare [id number] Мария S Ruffing [id number] [place] [facility] [id number] Мария S Ruffing [id number] Encounters Encounter Location(s) Arrival/Admit Date Discharge/Depart Date Provider(s) Departed Physician/Prov ider Office Visit -[facility] Radha [place] April 25, 2025 4:46pm April 25, 2025 5:39pm Margarette Estevez , [employer] Recent Diagnosis Onset Date Admit Date Asthma Unknown April 25 4:46pm Chronic kidney disease, stage 3b Unknown April 25, 2025 4:46pm Essential hypertension Unknown April 132024 4:46pm Former smoker Unknown April 25 4:46pm Migraine Unknown April 25 4:46pm Assessments Diagnosis Onset Date Resolution Status Admit Date Asthma acute April 25, 2025 4:46pm Chronic kidney disease, stag e 3b acute April 25 4:46pm Essential hypertension acute Oc tober 2024 4:46pm Former smoker acute April 4:46pm Migraine acute April 25, 2025 4:46pm Plan of Treatment Author Margarette Estevez [facility] Authored April 25, 2025 5 :35pm no current meds avoid nephrotoxic drugs if possible is taking losartan Please check blood pressure daily and record DASH diet Limit caffeine Take medication as directed Contact office if chest pain, pressures, dizziness, shortness of breath, swelling in the legs Recommend slow position changes if you develop dizziness with position changes current meds: losartan quit smoking, chantix Future Tests Future scheduled test information is unavailable Pending Tests Pending diagnostic test information is unavailable Future Visits Future appointment information is unavailable Referrals to Other Providers Referral information is unavailable Future Procedures Future procedure information is unavailable Future Medications Future medication information is unavailable Patient Instructions Patient instructions are unavailable
--- OUTSIDE RECORDS SUMMARY | 2025-05-02 19:55 | XMS_ITS | CCD ---
Author Organization [facility] Care Team Providers Care Station Detective Name Role Phone ELIANE BEEBE Admitting Unavailable ELIANE BEEBE Attending Unavailable SANDRA LIZARRAGA Consulting Unavailable Justin Che II Unavailable [phone] Christiana Lazaro Unavailable Bahman Meneses Unavailable [phone] Ethan Coats Primary Care Unavailable Kathryn Parks Attending Unavailable Kathryn Parks Admitting Unavailable JORGE L, DR ROONEY Admitting Unavailable JORGE L, DR ROONEY Primary Care Unavailable HOUSE, DR ROONEY Consulting Unavailable HOUSE, DR ROONEY Attending Unavailable DARIA, DR JAY Osuna Consulting Unavailable BECCA THOMAS Admitting Unavailable BECCA THOMAS Consulting Unavailable BECCA THOMAS Attending Unavailable JORGE L, DR ROONEY Primary Care Unavailable Herb CARDIOLOGY SPECIALIST, Margarette Unavailable Shaikh Hernandes MD Primary Care Provider Jorge Luis Barajas Unavailable MD Chinmay Manning Attending Provider MD Chinmay Manning Attending Provider Herb CARDIOLOGY SPECIALIST, Margarette Unavailable Shaikh Hernandes MD Primary Care Provider [phone] Shaikh Hernandes MD Unavailable Chinmay Manning MD Attending Provider Chinmay Manning MD Attending Provider MARGARETTE ESTEVEZ Attending Unavailable MARGARETTE ESTEVEZ Attending Unavailable MARGARETTE ESTEVEZ Attending Unavailable ROSITA GARZA Attending UnavailDANYA Culver Attending Unavailable ROSITA GARZA Attending Margarette Martino Primary Care Provider Margarette Canela Attending Provider Margarette Estevez NP Unavailable Madhu Murphy MD Primary Care Provider Allergies Allergy Classification Reported Allergen(s) Allergy Type Date of Onset Reaction(s) Facility Anti-Epileptic Agents (1 source) gabapentin Drug Allergy 01-18-[address] [facility] Dihydrofolate Reductase Inhibitors (antibiotic) (1 source) Trimethoprim Drug Allergy 10-11-19 22 [facility] Opioid Agonists (2 sources) HYDROmorphone Drug Allergy 10-11-19 22 sick, [facility] peanut allergenic extract (1 source) peanut allergenic extract Drug Allergy 10-11-19 22 [facility] Pollen (1 source) Bee pollen Substance Allergy 10-11-[address] [facility] pregabalin (1 source) pregabalin Drug Allergy 01-18-[address] [facility] Promethazine (1 source) Promethazine Drug Allergy 10-11-19 22 [facility] Quinolones (antibiotic) (1 source) Ciprofloxacin Drug Allergy 01-18-20 22 itching, nausea [facility] Sulfonamides (antibiotic) (1 source) Sulfamethoxazole Drug Allergy 10-11-19 22 [facility] Unclassified (1 source) codeine, depakote, bactrium, s Allergy to substance 01-18-[address] [facility] Unclassified (5 sources) walnuts Allergy to substance 07-03-[address] [facility] Valproate (1 source) Valproate Drug Allergy 10-11-19 22 itching, nausea [facility] (1 source) tree nut, unspecified; Translations: [TREE NUTS] Propensity to adverse reactions to drug (disorder) 07-28-19 [facility] Repository (1 source) BEE VENOM PROTEIN (HONEY BEE); Translations: [BEE VENOM PROTEIN (HONEY BEE)] Propensity to adverse reactions to drug (disorder) 11-30-19 15 [facility] Repository (20 sources) Ciprofloxacin Drug Allergy 09-24-19 18 Hives [facility] Other (11 sources) gabapentin Drug Allergy 03-17-20 24 Unknown, Unknown Reaction [facility] (20 sources) HYDROmorphone Drug Allergy 06-13-20 23 Unknown, sick [facility] [employer] Other (11 sources) pregabalin Drug Allergy 03-17-20 24 Unknown, Unknown Reaction [facility] Comment on above: pain worse (7 sources) codeine, depakote, bactrium, sulfa, bees walnuts Propensity to adverse reactions Unknown [facility] [employer] Other (1 source) Acetaminophen / HYDROcodone Drug Allergy 11-03-19 15 [facility] (1 source) bee venom Drug allergy (disorder) 11-30-19 15 [facility] (5 sources) Codeine Drug Allergy 11-03-19 15 Hives [facility] (1 source) HYDROmorphone Drug Allergy 11-30-19 15 [facility] (1 source) Sulfamethoxazole / Trimethoprim Drug Allergy 11-03-19 15 [facility] (1 source) Valproate Drug Allergy 11-03-19 15 [facility] (1 source) Misc-Food; Translations: [Misc-Food] Food allergy (disorder) 11-03-19 15 [facility] (20 sources) Acetaminophen / HYDROcodone Drug Allergy 06-13-20 23 [facility] (20 sources) Bee pollen Propensity to adverse reactions 06-13-20 Anaphylaxis [facility] (20 sources) Codeine Drug Allergy 06-13-20 23 [facility] (20 sources) Erythromycin Drug Allergy 06-13-20 [facility] (20 sources) Honey bee venom Propensity to adverse reactions 11-30-19 15 [facility] Work Phone: (20 sources) Pregabalin Propensity to adverse reactions 06-13-20 [facility] (20 sources) Promethazine Drug Allergy 06-13-20 23 Rash [facility] (20 sources) Sulfamethoxazole Allergy to substance 06-17-20 17 Hives [facility] (20 sources) Sulfamethoxazole / Trimethoprim Drug Allergy 06-13-20 23 [facility] (20 sources) Valproate Drug Allergy 06-13-20 23 [facility] (9 sources) Black [place] Flavor Propensity to adverse reactions 06-13-20 23 [facility] (20 sources) Other Propensity to adverse reactions 07-28-19 22 Hives, Shortness of breath, Swelling [facility] (4 sources) peanut allergenic extract Drug Allergy 03-17-[address] [facility] (4 sources) Trimethoprim Drug Allergy 03-17-[address] [facility] (4 sources) Valproate Drug Allergy 03-17-20 24 itching, nausea [facility] (17 sources) Black [place] Flavoring Agent (Non-Screening) Propensity to adverse reactions 06-13-20 [facility] Medications Current Medications Medication Drug Class(es) Dates [...] oral tablet (20 sources) Muscle Relaxant Start: 04-25-2025 take 1 tablet by mouth once daily at bedtime as needed Cyclobenzaprine 10 mg tablet Active 10 MG PO Daily at bedtime as needed April 25, 2025 5:26pm Complies with drug therapy Start: 03-24-2024 End: 12-22-2024 take 0.5 tablet by mouth at bedtime cyclobenzaprine (Flexeril) 10 MG tablet Indications: Back spasm Take 0.5 tablets (5 mg) by mouth at bedtime 30 tablet 3 09/22/2024 Active Start: 12-09-2023 End: 04-25-2025 take 1 tablet by mouth three times daily as needed Cyclobenzaprine 10 mg tablet Discontinued 10 MG PO Three times daily as needed December 09, 2023 12:00am April 25, 2025 5:27pm End: 03-24-2024 take 5 mg by mouth three times daily as needed for muscle spasms cyclobenzaprine (Flexeril) 10 MG tablet Take 5 mg by mouth 3 (three) times a day as needed for muscle spasms. 03/24/2024 Discontinued (Dose adjustment) Elderberry preparation (3 sources) Elderberry Activ e [id number] 0.3 ml EPINEPHrine 1 mg/ml auto-injector (20 sources) alpha-Adrenergic Agonist, beta-Adrenergic Agonist, Catecholamine Start: 12-09-2023 Epinephrine 0.3 mg/0.3 mL auto-injector Active 0.3 ML IM as needed December 09, 2023 12:00am Complies with drug therapy Start: 11-17-2023 EPINEPHrine (E pipen) 0.3 MG/0.3ML injection syringe Indications: Allergic reaction to bee sting Inject 0.3 mL (0.3 mg) as directed 1 (one) time for 1 dose use as directed for allergic reaction and then call 911 2 each 11/17/2023 Active EPINEPHrine (EPI PEN IJ) Inject as directed. 0 Active EPINEPHrine 0.3 MG/0.3ML as directed Injection Active losartan potassium 100 mg oral tablet (20 sources) Angiotensin 2 Receptor [place] Start: 08-11-2023 End: 05-22-2025 take 1 tablet by mouth once daily losartan (Cozaar) 100 MG tablet Indications: Primary hypertension Take 1 tablet (100 mg) by mouth Daily 90 tablet 1 02/21/2025 05/22/2025 Active Magnesium (3 sources) Magnesium Active magnesium oxide 400 mg oral tablet (20 sources) Start: 02-16-2025 take 1 tablet by mouth once daily Magnesium Oxide 400 mg (241.3 mg magnesium) tablet Active 0 .ROUTE .COMPLEX February 16, 2025 10:18am TAKE 1 TABLETBY MOUTH EVERY DAY Complies with drug therapy Start: 08-24-2024 End: 02-16-2025 take 1 tablet by mouth once daily Magnesium Oxide 400 mg (241.3 mg magnesium) tablet Discontinued 0 .ROUTE .COMPLEX August 24, 2024 9:56am February 16, 2025 10:18am TAKE 1 TABLETBY MOUTH EVERY DAY Start: 08-24-2024 take 1 tablet by benedicto th once daily Magnesium Oxide 400 mg (241.3 mg magnesium) tablet Active 0 .ROUTE .COMPLEX 90 August 24, 2024 9:56am TAKE 1 TABLETBY MOUTH EVERY DAY Start: 03-17-2024 End: 08-24-2024 take 1 tablet by mouth once daily [...] capsule (20 sources) Proton Pump Inhibitor Start: take 1 capsule by mouth once daily Omeprazole 20 mg capsule,delayed release(DR/EC) Active 20 MG PO Daily December 09, 2023 12:00am Complies with drug therapy ondansetron 4 mg disintegrating oral tablet (1 source) Serotonin-3 Receptor Antagonist Start: End: take 1 tablet by mouth every eight hours for nausea ondansetron ODT (Zofran-ODT) 4 MG disintegrating tablet Indications: Nausea and vomiting, unspecified vomiting type Take 1 tablet (4 mg) by mouth every 8 (eight) hours if needed for vomiting or nausea for up to 5 days 15 tablet 01/13/2025 01/18/2025 Active 24 hr paliperidone 3 mg extended release oral tablet (20 sources) Atypical Antipsychotic Start: End: take 1 tablet by mouth once daily in the morning Paliperidone 3 mg tablet extended release 24hr Active 3 MG PO Every morning August 17, 2024 4:56pm Complies with drug therapy take 1 tablet by benedicto th every [...] oral tablet (20 sources) Start: 09-23-2017 End: 05-22-2025 take 1 tablet by mouth once daily topiramate (Topamax) 100 MG tablet Indications: Migraine without aura and without status migrainosus, not intractable , Bipolar 2 disorder (HCC) Take 1 tablet (100 mg) by mouth Daily 90 tablet 1 02/21/2025 05/22/2025 Active Topamax Active take 1 capsule by [facility] three times daily Topiramate 100 MG 1 capsule Oral TID for 30 Active traZODone hydrochloride 100 mg oral tablet (20 sources) Serotonin Reuptake Inhibitor Start: 12-09-2023 take 2 tablets by mouth once daily at bedtime Trazodone 100 mg tablet Active 200 MG PO Daily at bedtime December 09, 2023 12:00am Complies with drug therapy Start: 12-09-2023 take 200 mg by mouth once daily at bedtime Trazodone Active 200 MG PO Daily at bedtime December 09, 2023 12:00am Start: 09-23-2017 End: 12-09-2023 Trazodone 150 mg tablet Disc ontinued 50 MG PO Bedtime September 23, 2017 12:00am December 09, 2023 3:28pm Start: 09-23-2017 End: 12-09-2023 take 50 mg by mouth at bedtime Trazodone Discontinued 50 MG PO Bedtime September 23, 2017 12:00am December 09, 2023 3:28pm take 1-2 tablets by mouth once daily traZODone HCl 50 MG 1-2 TABLETS Orally Once a day Active Turmeric extract (3 sources) Turmeric Active varenicline 1 mg oral tablet (18 sources) Partial Cholinergic Nicotinic Agonist Start: End: take 1 tablet by mouth in the morning varenicline (Chantix) 1 MG tablet Indications: Cigarette nicotine dependence without complication Take 1 tablet (1 mg) by mouth in the morning and 1 tablet (1 mg) before bedtime. Take with full glass of water. 60 tablet 2 02/21/2025 Active Start: 12-22-2024 End: 02-09-2025 Varenicline Tartrate, Starte r, 0.5 MG X 11 & 1 MG X 42 tablet therapy pack Indications: Cigarette nicotine dependence without complication Take 1 Package by mouth Daily Use as directed 42 each 12/22/2024 02/09/2025 Discontinued (Therapy completed) Start: 12-22-2024 Varenicline Ta rtrate, Starter, 0.5 MG X 11 & 1 MG X 42 tablet therapy pack Indications: Cigarette nicotine dependence without complication Take 1 Package by mouth Daily Use as directed 42 each 12/22/2024 Active Completed/Discontinued Medications Medication Drug Class(es) Dates Sig (Normalized) Sig (Original) alendronic acid 70 mg / cholecalciferol 5600 unt oral tablet (19 sources) Bisphosphonate, Vitamin D Start: 04-22-2025 End: 04-25-2025 take 1 tablet by mouth every week Alendronate-Vitami n D3 70 mg- 5,600 unit tablet Discontinued 1 TAB PO every week April 22, 2025 12:00am April 25, 2025 5:26pm Start: 05-27-2024 End: 05-27-2025 take 70-5600 tablets by mouth in the morning alendronate-cholecalciferol (Fosamax Plu s D) 70-5600 MG-UNIT tablet Indications: Osteopenia, unspecified location Take 1 tablet by mouth every 7 (seven) days Take in the morning with a full glass of water, on an empty stomach, and do not take anything else by mouth or lie down for the next 30 min. 4 tablet 11 05/27/2024 05/27/2025 Active busPIRone hydrochloride 10 m g oral tablet (7 sources) Start: 07-13-2020 End: 12-09-2023 Buspirone 10 mg tablet Discontinued 10 MG PO As Directed July 13, 2020 1:00am December 09, 2023 3:31pm BuSpar Active take 1 tablet by mouth twice nino ly BuSpar 10 MG 1 tablet Orally Twice a day Active citalopram 20 mg oral tablet (7 sources) Serotonin Reuptake Inhibitor Start: 07-13-2020 End: 12-09-2023 Citalopram 20 mg tablet Discontinued 20 MG PO As Directed July 13, 2020 1:00am December 09, 2023 3:31pm Citalopram [place] bromide Active dicyclomine hydrochloride 10 mg oral capsule (12 sources) Anticholinergic Start: 08-16-2019 End: 12-09-2023 take [...] Active 1 ml erenumab-aooe 70 mg/ml auto-injector (6 sources) Start: 07-13-2020 End: 12-09-2023 Erenumab-Aooe (Aimovig Autoinjector) 70 mg/mL auto-injector Discontinued 70 MG SUBCUT As Directed July 13, 2020 1:00am December 09, 2023 3:31pm inject 70 mg by subc utaneous injection every month Aimovig 70 MG/ML as directed Subcutaneou s ONCE A MONTH Active estradiol 1 mg oral tablet (20 sources) Estrogen Start: 12-09-2023 End: 04-27-2026 take 1 tablet by mouth once daily estradiol (Estrace) 1 MG tablet Indications: Hormone imbalance TAKE 1 TABLET BY MOUTH EVERY DAY 90 tablet 4 05/24/2024 05/02/2025 Discontinued (Reorder) estrogens, conjugated (halfway) 0.625 mg oral tablet (17 sources) Estrogen Start: 07-13-2020 End: 12-09-2023 take 1 tablet by mouth once daily Conjugated Estrogens (Premarin) 0.625 mg tablet Discontinued 0.625 MG PO Daily July 13, 2020 1:00am December 09, 2023 3:31pm Start: 09-23-2017 End: 08-16-2019 take 1 tablet by mouth once daily Conjugated Estrogens 0.625 mg tablet Discontinued 0.625 MG PO Daily September 23, 2017 12:00am August 16, 2019 7:38am 24 hr nicotine 0.292 mg/hr transdermal system (20 sources) Cholinergic Nicotinic Agonist Start: 06-23-2024 End: 02-09-2025 nicotine (Nicoderm, Step 3) 7 MG/24HR patch Indications: Tobacco dependency Place 1 patch over 24 hours on the skin 1 (one) time each day at the same time 14 patch 06/23/2024 02/09/2025 Discontinued (Therapy completed) Start: 03-24-2024 End: 06-23-2024 nicotine polacrilex ([facility] Polacrilex) 4 MG lozenge Indications: Tobacco dependency Dissolve 1 lozenge (4 mg) in the mouth every 2 (two) hours if needed for smoking cessation 100 lozenge 03/24/2024 06/23/2024 Discontinued (Med list cleanup) Start: 03-17-2024 Nicotine Activ e TRANSDERML March 17, 2024 12:00am Start: 02-12-2024 End: 04-25-2025 apply 1 dose transdermal route every twenty-four hours Nicotine 21 mg/24 hr patch 24 hour Discontinued TRANSDERML March 17, 2024 12:00am April 25, 2025 5:26pm Start: 02-12-2024 End: 09-22-2024 apply 1 dose transdermal route every twenty-four hours nicotine (Nicoderm CQ) 14 MG/24HR patch Indications: Tobacco dependency Place 1 patch over 24 hours on the skin 1 (one) time each day at the same time Use after patient has used 21 mg dose. 14 patch 06/23/2024 09/22/2024 Discontinued (Therapy completed) sertraline 100 mg oral tablet (5 sources) Serotonin Reuptake Inhibitor Start: 09-23-2017 End: 07-13-2020 take 1 tablet by mouth once daily Sertraline 100 mg tablet Discontinued 100 MG PO Daily September 23, 2017 12:00am July 13, 2020 1:21pm sucralfate 1000 mg oral tablet (9 sources) Aluminum Complex Start: 09-23-2017 End: 12-09-2023 take 1 tablet by mouth four times daily Sucralfate 1 gram tablet Discontinued 1 TAB PO Four times daily September 23, 2017 12:00am December 09, 2023 3:31pm Start: 09-23-2017 End: 12-09-2023 take 1 tablet by mouth four times daily Sucralfate Discontinued 1 TAB PO Four times daily September 23, 2017 12:00am December 09, 2023 3:31pm Carafate Active take 1 capsule by mo [facility] twice daily Sucralfate 1 GM 1 capsule Oral twice times a day for 30 days Active tiZANidine 4 mg oral tablet (6 sources) Central alpha-2 Adrenergic Agonist Start: 07-13-2020 [...] disorder, unspecified] Onset: 2 08-18-2023 Chronic Asthma (6 sources) Asthma; Translations: [Unspecified asthma, uncomplicated] 10-10-2021 Chronic Chronic kidney disease (20 sources) Chronic kidney disease stage 2; Translations: [Chronic kidney disease, stage 2 (mild)] Onset: 3 Resolved: 5 06-16-2023 Chronic Disorders of lipid metabolism (16 sources) Mixed hyperlipidemia; Translations: [Mixed hyperlipidemia] Onset: 5 09-22-2024 Chronic E Codes: Fall (5 sources) Fall (on) (from) other stairs and steps, initial encounter; Translations: [Fall down stairs] 07-03-2021 Episodic Esophageal disorders (11 sources) Gastroesophageal reflux disease; Translations: [Gastro-esophageal reflux disease without esophagitis] Onset: 2 Resolved: 2 Chronic Essential hypertension (20 sources) Essential hypertension; Translations: [Essential (primary) hypertension] Onset: 3 06-16-2023 Chronic Gastritis and duodenitis (7 sources) Gastritis; Translations: [Gastritis, unspecified, without bleeding] Episodic Gastrointestinal hemorrhage (20 sources) Dark stools; Translations: [Melena] 07-26-2020 Episodic Headache; including migraine (20 sources) Migraine without aura, not refractory ; Translations: [Migraine without aura, not intractable, without status migrainosus] Onset: 3 06-16-2023 Chronic Headache; including migraine (7 sources) Headache; Translations: [Headache] Episodic Hemorrhoids (7 sources) Hemorrhoids; Translations: [Unspecified hemorrhoids] Episodic Hypertension with complications and secondary hypertension (9 sources) Hypertensive renal disease; Translations: [Hypertensive chronic [...] disorder] Onset: 4 Resolved: 5 11-17-2023 Chronic Noninfectious gastroenteritis (14 sources) Microscopic colitis; Translations: [Other specified noninfective gastroenteritis and colitis] Episodic Nonspecific chest pain (5 sources) Atypical chest pain; Translations: [Other chest pain] 10-10-2021 Episodic Other and unspecified benign neoplasm (7 sources) Lipoma (clinical); Translations: [Benign lipomatous neoplasm, unspecified] Episodic Other bone disease and musculoskeletal deformities (1 source) Osteopenia; Translations: [Other specified disorders of bone density and structure, unspecified site] 05-27-2024 Episodic Other diseases of kidney and ureters (5 sources) Kidney lesion; Translations: [Disorder of kidney and ureter, unspecified] 12-09-2023 Episodic Other diseases of kidney and ureters (4 sources) Disorder of kidney and ureter, unspecified; Translations: [Unspecified disorder of kidney and ureter] 12-09-2023 Episodic Other endocrine disorders (4 sources) Disorder of endocrine system; Translations: [Endocrine [...] Episodic Other nutritional; endocrine; and metabolic disorders (4 sources) Hypomagnesemia; Translations: [Hypomagnesemia] 03-17-2024 Chronic Other nutritional; endocrine; and metabolic disorders (3 sources) Hypomagnesemia; Translations: [Disorders of magnesium metabolism] 03-17-2024 Chronic Other nutritional; endocrine; and metabolic disorders (7 sources) Weight loss; Translations: [Abnormal weight loss] Episodic Other nutritional; endocrine; and metabolic disorders (7 sources) Body mass index 25-29 - overweight; Translations: [Overweight] Onset: 5 02-21-2025 Episodic Other screening for suspected conditions (not [...] state; Translations: [Asymptomatic menopausal state] 04-28-2024 Episodic Screening and history of mental health and substance abuse codes (2 sources) Ex-smoker; Translations: [Personal history of nicotine dependence] 04-25-2025 Episodic Spondylosis; intervertebral disc disorders; other back problems (20 sources) Spasm of back muscles; Translations: [Muscle spasm of back] 06-23-2024 Episodic Sprains and strains (6 sources) Sprain of other ligament of left ankle, initial encounter; Translations: [Sprain of left ankle] Onset: 1 Resolved: 1 Episodic Substance-related disorders (20 sources) Tobacco dependence syndrome; Translations: [Nicotine dependence, unspecified, uncomplicated] Onset: 3 Resolved: 5 06-16-2023 Chronic Superficial injury; contusion (10 sources) Contusion of lower back; Translations: [Contusion of lower back and pelvis, initial encounter] 07-03-2021 Episodic Unclassified (3 sources) LOW BACK PAIN, UNSPECIFIED; Translations: [LOW BACK PAIN, UNSPECIFIED] Onset: 2 Past or Other Problems Problem Classification Problem Date Documented Da te Episodic/Chronic Allergic reactions (20 sources) Allergy to nut; Translations: [Allergy to other foods] Onset: 08-18-2023 08-18-2023 Episodic Nausea and vomiting (20 sources) Vomiting; Translations: [Vomiting, unspecified] Onset: 01-13-2025 01-13-2025 Episodic Open wounds of extremities (1 source) [...] Diarrhea, unspecified Onset: 10-16-2021 Resolved: 01-17-2022 Episodic Other nutritional; endocrine; and metabolic disorders (20 sources) Obesity caused by energy imbalance; Translations: [Class 1 obesity due to excess calories without serious comorbidity with body mass index (BMI) of 33.0 to 33.9 in adult] Onset: 02-12-2024 Resolved: 02-21-2025 02-12-2024 Chronic Unclassified (1 source) LOW BACK PAIN, UNSPECIFIED; Translations: [LOW BACK PAIN, UNSPECIFIED] Onset: 06-07-2022 Results Test Name Value Interpretation Reference Range Facility ALL URINALYSISon 12-14-2024 BILIRUBIN URINE Negative [facility]GATIVE [facility] B[facility]OD [facility] TR[facility]-I [facility]IVE [facility] Clarity (U) CLEAR CLEAR [facility] Color (U) YELLOW YELLOW [facility] GLUCOSE URINE UA Negative NEGATIVE mg/dL [facility] Ketones Ql (U) Negative NEGATIVE mg/dL [facility] Leukocyte esterase Test strip Ql (U) Negative NEGATIVE [facility] NITRITE URINE Negative NEGATIVE [facility] pH (U) 6.0 [pH] 5.0 - 9.0 [facility] PROTEIN URINE Negative NEG/TRACE mg/dL [facility] SPECIFIC GRAVITY URINE 1.015 1.005 - 1.025 [facility] UROBILINOGEN URINE 0.2 EU/dL 0.2 - 1.0 EU/dL [facility] Erythrocyte distribution wid th Auto (RBC) [Ratio]on 12-14-2024 Erythrocyte distribution width (RBC) [Ratio] Erythrocyte distribution width [Ratio] by Automated count 11.0-15.0 [facility] Estimated glomerular filtrat ion rate (GFR) non- Americanon 12-14-2024 GFR/1.73 sq M.predicted among non-blacks MDRD (S/P/Bld) [Vol rate/Area] Estimated glomerular filtration rate (GFR) non- Low >=60 mL/min/1.73m 2 [facility] CBC WITH PLATELET NO DI FFERENTIALon 12-14-2024 Erythrocyte distribution width (RBC) [Ratio] 12.5 % 11.0 - 15.0 % [facility] Hematocrit (Bld) [Volume fraction] 46.7 % 36.0 - 48.0 % [facility] (Bld) [Mass/Vol] 15.7 g/dL 12.0 - 16.0 g/dL [facility] Interpretation and review of laboratory results Abnormal [facility] MCH (RBC) [Entitic mass] 30.6 pg 26.7 - 34.0 pg [facility] MCHC (RBC) [Mass/Vol] 33.6 g/dL 29.9 - 35.2 g/dL [facility] MCV (RBC) [Entitic vol] 91 fL 81.0 - 99.0 fL [facility] Platelet mean volume (Bld) [Entitic vol] 9.2 fL Low 9.5 - 13.5 fL [facility] [address] [facility] RBC 5.13 [facility] WBC 7.7 [facility] Hematocrit Auto (Bld) [Volum e fraction]on 12-14-2024 Hematocrit (Bld) [Volume fraction] Hematocrit [Volume Fraction] of Blood by Automated count 36.0-48.0 [facility] Hemoglobin [Mass/volume] in Bloodon 12-14-2024 Hemoglobin (Bld) [Mass/Vol] Hemoglobin [Mass/volume] in Blood 12.0-16.0 [facility] Laboratory - Chemistry and C hemistry - challengeon 12-14-2024 Albumin [Mass/Vol] 3.8 g/dL 3.4-5.0 [facility] Calcium [Mass/Vol] 8.9 mg/dL 8.5-10.1 [facility] Chloride [Moles/Vol] 105 mmol/L 98-107 [facility] CO2 [Moles/Vol] 20.7 mmol/L Low 21.0-32.0 [facility] Creatinine [Mass/Vol] 1.41 mg/dL High 0.55-1.02 [facility] GFR/1.73 sq M.predicted MDRD (S/P/Bld) [Vol rate/Area] 46 mL/min/{1.73_m2} Low >=60 mL/min/1.73m 2 [facility] Glucose [Mass/Vol] 110 mg/dL High 74-106 [facility] Magnesium [Mass/Vol] 1.9 mg/dL 1.8-2.4 [facility] Potassium [Moles/Vol] 3.9 mmol/L 3.5-5.1 [facility] Sodium [Moles/Vol] 141 mmol/L 136-145 [facility] Urate [Mass/Vol] 3.6 mg/dL 2.6-6.0 [facility] Urea nitrogen [Mass/Vol] 26.0 mg/dL High 7.0-18.0 [facility] Urea nitrogen/Creatinine [Mass ratio] 18.4 mg/mg [facility] Bilirubin Ql (U) Negative NEGATIVE [facility] Glucose (U) [Mass/Vol] Negative NEGATIVE [facility] Ketones Ql (U) Negative NEGATIVE [facility] pH (U) 6.0 [pH] 5.0-9.0 [facility] Specific gravity (U) [Rel density] 1.015 1.005-1.025 [facility] Urobilinogen Qn (U) 0.2 {Jimmy'U}/dL 0.2-1.0 [facility] Laboratory - Specimen inform ationon 12-14-2024 Appearance (U) CLEAR CLEAR [facility] Color (U) YELLOW YELLOW [facility] Laboratory - Urinalysison Leukocyte esterase Test strip Ql (U) Negative NEGATIVE [facility] Nitrite Ql (U) Negative NEGATIVE [facility] Protein (U) [Mass/Vol] 24.8 mg/dL High <=11.9 [facility] Protein Ql (U) Negative NEG/TRACE [facility] Leukocytes [#/volume] correc charlotte for nucleated erythrocytes in Blood by Automated counon 12-14-2024 WBC corrected for nucl RBC Auto (Bld) [#/Vol] Leukocytes [#/volume] corrected for nucleated erythrocytes in Blood by Automated coun 4.0-11.0 [facility] MCH Auto (RBC) [Entitic mass ]on 12-14-2024 MCH (RBC) [Entitic mass] MCH [Entitic mass] by Automated count 26.7-34.0 [facility] MCHC Auto (RBC) [Mass/Vol]on 12-14-2024 MCHC (RBC) [Mass/Vol] MCHC [Mass/volume] by Automated count 29.9-35.2 [facility] MCV Auto (RBC) [Entitic vol] on 12-14-2024 MCV (RBC) [Entitic vol] MCV [Entitic volume] by Automated count 81.0-99.0 [facility] Microalbumin [Mass/volume] i n Urineon 12-14-2024 Albumin DL <= 20 mg/L (U) [Mass/Vol] Microalbumin [Mass/volume] in Urine <=30.0 [facility] No Panel Informationon 12-14 [facility] 25-Hydroxy Vitamin D Total 54.5 ng/mL [facility] Comment on above: <20 ng/mL Vit D defi cient20-<30 ng/mL Vit D [id number] ng/mL Vit D sufficient>100 ng/mL Potential Toxicity Parathyroid Hormone (Intact) 25 pg/mL 15-65 [facility] Comment on above: Performed at: [address] [id number] Director: Davion Noonan PhD, Phone: [phone] Phosphorus Level 3.4 mg/dL 2.6-4.7 [facility] Urine Occult Blood TRACE-I NEGATIVE [facility] Urine Random Creatinine 203.31 mg/dL 20.00-300.00 [facility] Platelet mean volume Auto (B ld) [Entitic vol]on 12-14-2024 Platelet mean volume (Bld) [Entitic vol] Platelet mean volume [Entitic volume] in Blood by Automated count Low 9.5-13.5 [facility] Platelets Auto (Bld) [#/Vol] on 12-14-2024 Platelets (Bld) [#/Vol] Platelets [#/volume] in Blood by Automated count 150-450 [facility] RBC Auto (Bld) [#/Vol]on RBC (Bld) [#/Vol] Erythrocytes [#/volume] in Blood by Automated count 4.20-5.40 [facility] Serum or plasma anion gap de terminationon 12-14-2024 Anion gap [Moles/Vol] Serum or plasma anion gap determination [facility] Urine microalbumin/creatinin e mass ratioon 12-14-2024 Albumin/Creatinine DL <= 20 mg/L (U) [Mass ratio] Urine microalbumin/creatini ne mass ratio 0.0-29.9 [facility] Comment on above: NO MICROALBUMINURIA 0-29 MG/GCLINICAL MICROALBUMINURIA 30-300 MG/GMACROALBUMINURIA >300 MG/G Urine protein/creatinine rat ioon 12-14-2024 Protein/Creatinine (U) [Ratio] Urine protein/creatinine ratio [facility] Erythrocyte distribution wid th Auto (RBC) [Ratio]on 08-07-2024 Erythrocyte distribution width (RBC) [Ratio] Erythrocyte distribution width [Ratio] by Automated count 11.0-15.0 [facility] Estimated glomerular filtrat ion rate (GFR) non- Americanon 08-07-2024 GFR/1.73 sq M.predicted among non-blacks MDRD (S/P/Bld) [Vol rate/Area] Estimated glomerular filtration rate (GFR) non- Low >=60 mL/min/1.73m 2 [facility] Hematocrit Auto (Bld) [Volum e fraction]on 08-07-2024 Hematocrit (Bld) [Volume fraction] Hematocrit [Volume Fraction] of Blood by Automated count 36.0-48.0 [facility] Hemoglobin [Mass/volume] in Bloodon 08-07-2024 Hemoglobin (Bld) [Mass/Vol] Hemoglobin [Mass/volume] in Blood 12.0-16.0 [facility] Laboratory - Chemistry and C hemistry - challengeon 08-07-2024 Bilirubin Ql (U) Negative NEGATIVE [facility] Glucose (U) [Mass/Vol] Negative NEGATIVE [facility] Ketones Ql (U) Negative NEGATIVE [facility] pH (U) 6.0 [pH] 5.0-9.0 [facility] Specific gravity (U) [Rel density] 1.015 1.005-1.025 [facility] Urobilinogen Qn (U) 0.2 {Jimmy'U}/dL 0.2-1.0 [facility] Albumin [Mass/Vol] 3.6 g/dL 3.4-5.0 [facility] Calcium [Mass/Vol] 8.8 mg/dL 8.5-10.1 [facility] Chloride [Moles/Vol] 105 mmol/L 98-107 [facility] CO2 [Moles/Vol] 26.0 mmol/L 21.0-32.0 [facility] Creatinine [Mass/Vol] 1.69 mg/dL High 0.55-1.02 [facility] GFR/1.73 sq M.predicted MDRD (S/P/Bld) [Vol rate/Area] 37 mL/min/{1.73_m2} Low >=60 mL/min/1.73m 2 [facility] Glucose [Mass/Vol] 105 mg/dL 74-106 [facility] Magnesium [Mass/Vol] 1.8 mg/dL 1.8-2.4 [facility] Potassium [Moles/Vol] 3.8 mmol/L 3.5-5.1 [facility] Sodium [Moles/Vol] 141 mmol/L 136-145 [facility] Urate [Mass/Vol] 4.4 mg/dL 2.6-6.0 [facility] Urea nitrogen [Mass/Vol] 27.0 mg/dL High 7.0-18.0 [facility] Urea nitrogen/Creatinine [Mass ratio] 16.0 mg/mg [facility] Laboratory - Specimen inform ationon 08-07-2024 Appearance (U) CLEAR CLEAR [facility] Color (U) YELLOW YELLOW [facility] Laboratory - Urinalysison Leukocyte esterase Test strip Ql (U) Negative NEGATIVE [facility] Nitrite Ql (U) Negative NEGATIVE [facility] Protein (U) [Mass/Vol] 20.7 mg/dL High <=11.9 [facility] Protein Ql (U) Negative NEG/TRACE [facility] Leukocytes [#/volume] correc charlotte for nucleated erythrocytes in Blood by Automated counon 08-07-2024 WBC corrected for nucl RBC Auto (Bld) [#/Vol] Leukocytes [#/volume] corrected for nucleated erythrocytes in Blood by Automated coun 4.0-11.0 [facility] MCH Auto (RBC) [Entitic mass ]on 08-07-2024 MCH (RBC) [Entitic mass] MCH [Entitic mass] by Automated count 26.7-34.0 [facility] MCHC Auto (RBC) [Mass/Vol]on 08-07-2024 MCHC (RBC) [Mass/Vol] MCHC [Mass/volume] by Automated count 29.9-35.2 [facility] MCV Auto (RBC) [Entitic vol] on 08-07-2024 MCV (RBC) [Entitic vol] MCV [Entitic volume] by Automated count 81.0-99.0 [facility] Microalbumin [Mass/volume] i n Urineon 08-07-2024 Albumin DL <= 20 mg/L (U) [Mass/Vol] Microalbumin [Mass/volume] in Urine <=30.0 [facility] No Panel Informationon 08-07 Urine Occult Blood TRACE-L NEGATIVE [facility] Urine Random Creatinine 139.22 mg/dL 20.00-300.00 [facility] 25-Hydroxy Vitamin D Total 45.1 ng/mL [facility] Comment on above: <20 ng/mL Vit D defi cient20-<30 ng/mL Vit D flxgxsfqvifj47-539 ng/mL Vit D sufficient>100 ng/mL Potential Toxicity Parathyroid Hormone (Intact) 30 pg/mL 15-65 [facility] Comment on above: Performed at: - [facility] [address] [id number] Director: Davion Noonan PhD, Phone: [phone] Phosphorus Level 3.7 mg/dL 2.6-4.7 [facility] Platelet mean volume Auto (B ld) [Entitic vol]on 08-07-2024 Platelet mean volume (Bld) [Entitic vol] Platelet mean volume [Entitic volume] in Blood by Automated count Low 9.5-13.5 [facility] Platelets Auto (Bld) [#/Vol] on 08-07-2024 Platelets (Bld) [#/Vol] Platelets [#/volume] in Blood by Automated count 150-450 [facility] RBC Auto (Bld) [#/Vol]on RBC (Bld) [#/Vol] Erythrocytes [#/volume] in Blood by Automated count 4.20-5.40 [facility] Serum or plasma anion gap de terminationon 08-07-2024 Anion gap [Moles/Vol] Serum or plasma anion gap determination [facility] Urine microalbumin/creatinin e mass ratioon 08-07-2024 Albumin/Creatinine DL <= 20 mg/L (U) [Mass ratio] Urine microalbumin/creatini ne mass ratio 0.0-29.9 [facility] Comment on above: NO MICROALBUMINURIA 0-29 MG/GCLINICAL MICROALBUMINURIA 30-300 MG/GMACROALBUMINURIA >300 MG/G Urine protein/creatinine rat ioon 08-07-2024 Protein/Creatinine (U) [Ratio] Urine protein/creatinine ratio [facility] IGP,APTIMA HPV,AGE GDLNon AGE GDLN ACOG TESTING Note . [facility] Comment on above: TESTS RESULT FLAG UN ITS REF RANGE LAB Clinician Provided Cytology Information Source.............Vagina No. of containers..01 ThinPrep Vial Age Lin BRAN Marisol... 30 FLAG LEGEND: L-Low Normal,H-High Normal,LL-Alert Low,HH-Alert High <-Panic Low,>-Panic High,A-Abnormal,AA-Critical Abnormal Performed at: 01 =G [address] [id number] Coby Russell MD, HPV APTIMA Negative Negative [facility] Comment on above: This nucleic acid am plification test detects fourteen high- risk HPV types (16,18,31,33,35,39,45,51,52,56,58,59,66,68) without differentiation. Performed at: =[address] [id number] Web Content Director: Coby Russell MD, Phone: [phone] Performed at: - [address] [id number] Web Content Director: Coby Russell MD, Phone: [phone] IGP, APTIMA HPV, RFX 16/18,45 Note . [facility] Comment on above: TESTS RESULT FLAG UN ITS REF RANGE LAB DIAGNOSIS: 02 NEGATIVE FOR INTRAEPITHELIAL LESION OR MALIGNANCY. Specimen adequacy: 02 Satisfactory for evaluation. Performed by: 02 Nazia Crump, Qa Software Tester ([facility]) . 02 Note: Note 02 The Pap [...] Low,>-Panic High,A-Abnormal,AA-Critical Abnormal Performed at: [address] [phone] Coby Russell MD, SPATULA-ALONE VAGINA [facility] No Panel Informationon 04-28 [facility] - Chemistry and C hemistry - challengeon 02-21-2024 Albumin [Mass/Vol] 3.6 g/dL 3.4-5.0 [facility] Magnesium [Mass/Vol] 1.7 mg/dL Low 1.8-2.4 [facility] Urate [Mass/Vol] 4.6 mg/dL 2.6-6.0 [facility] Bilirubin Ql (U) Negative NEGATIVE [facility] Glucose (U) [Mass/Vol] Negative NEGATIVE [facility] Ketones Ql (U) Negative NEGATIVE [facility] pH (U) 6.0 [pH] 5.0-9.0 [facility] Specific gravity (U) [Rel density] 1.020 1.005-1.025 [facility] Urobilinogen Qn (U) 0.2 {Jimmy'U}/dL 0.2-1.0 [facility] Laboratory - Specimen inform ationon 02-21-2024 Appearance (U) CLEAR CLEAR [facility] Color (U) LT. YELLOW YELLOW [facility] Laboratory - Urinalysison Leukocyte esterase Test strip Ql (U) Negative NEGATIVE [facility] Nitrite Ql (U) Negative NEGATIVE [facility] Protein (U) [Mass/Vol] 13.0 mg/dL High <=11.9 [facility] Protein Ql (U) Negative NEG/TRACE [facility] Microalbumin [Mass/volume] i n Urineon 02-21-2024 Albumin DL <= 20 mg/L (U) [Mass/Vol] mg/dL <=30.0 [facility] No Panel Informationon 02-20 25-Hydroxy Vitamin D Total 54.3 ng/mL [facility] Comment on above: <20 ng/mL Vit D defi cient20-<30 ng/mL Vit D fphyvtjkbhok51-709 ng/mL Vit D sufficient>100 ng/mL Potential Toxicity Parathyroid Hormone (Intact) 28 pg/mL 15-65 [facility] Comment on above: Performed at: [address] [id number] Director: Davion Noonan PhD, Phone: [phone] Phosphorus Level 4.0 mg/dL 2.6-4.7 [facility] Urine Occult Blood TRACE-I NEGATIVE [facility] Urine Random Creatinine 148.15 mg/dL 20.00-300.00 [facility] Protein/Creatinine (U) [Rati o]on 02-21-2024 Urine Protein/Creatinine Ratio 0.09 [facility] ALL BUNon 08-22-2023 Urea nitrogen [Mass/Vol] 21.0 mg/dL High 7.0 - 18.0 mg/dL [facility] No Panel Informationon 08-22 Interpretation and review of laboratory results Abnormal [facility] CREATININEon 08-22-2023 Creatinine [Mass/Vol] 1.48 mg/dL High 0.55 - 1.02 mg/dL [facility] GFR/1.73 sq M.predicted CKD-EPI (S/P/Bld) [Vol rate/Area] 44 Low 60 - PINF [facility] EGFR-NON AF CYPRIOT 36 Low 60 - PINF [facility] XR LSPINE MIN 4 VIEWSon 05-15 XR [...] by: JAY HUFF Date: 2022-06-07 12:11 Normal [facility] B-Type Natriuretic Peptideon 10-10-2021 Natriuretic peptide B (Bld) [Mass/Vol] 64.0 pg/mL Normal 5-100 [facility] Comment on above: Result Comment: PERF ORMED BY: [place] [address] PATHOLOGIST EDITORIAL DIRECTOR SHIMA SY M.D. Performed By: #### C K, CKMB, CBC, BMP, BNP #### [address] Basic Metabolic Panelon 09-13 Calcium [Mass/Vol] 9.3 mg/dL Normal 8.2-10.2 [facility] Comment on above: Performed By: #### C K, CKMB, CBC, BMP, BNP #### [facility] [address] [place] [address] [place] Chloride [Moles/Vol] 104 mmol/L Normal 95-114 [facility] Comment on above: Performed By: #### C K, CKMB, CBC, BMP, BNP #### [facility] [address] CO2 [Moles/Vol] 19.9 mmol/L Low 22.0-30.0 [facility] Comment on above: Performed By: #### C K, CKMB, CBC, BMP, BNP #### [facility] [address] Creatinine [Mass/Vol] 1.27 mg/dL High 0.44-1.03 [facility] Comment on above: Performed By: #### C K, CKMB, CBC, BMP, BNP #### [facility] [address] Creatinine Clr Calc Pharmacy 45.75 [facility] Comment on above: Result Comment: PERF ORMED BY: [place] [address] PATHOLOGIST EDITORIAL DIRECTOR SHIMA SY M.D. Performed By: #### C K, CKMB, CBC, BMP, BNP #### [address] Estimated GFR ( Demetra 52 [facility] Comment on above: Result Comment: GFR estimated reference range: According to KDOQI guidelines, <60 ml/min/1.73m2 is sufficient to diagnose a patient with chronic kidney disease. Performed By: #### C K, CKMB, CBC, BMP, BNP #### [facility] [address] Estimated GFR (Non- Am 43 [facility] Comment on above: Performed By: #### C K, CKMB, CBC, BMP, BNP #### [facility] [address] [place] [address] [place] Glucose [Mass/Vol] 96 mg/dL Normal 70-100 [facility] Comment on above: Result Comment: [facility] Glucose Reference Range is dependent on time and content of last meal. Glucose of more than 200 mg/dL in a nonstressed, ambulatory subject supports the diagnosis of Diabetes Mellitus. ADA recommended reference range Performed By: #### C K, CKMB, CBC, BMP, BNP #### [facility] [address] Potassium [Moles/Vol] 3.7 mmol/L Normal 3.5-5.1 [facility] Comment on above: Performed By: #### C K, CKMB, CBC, BMP, BNP #### [facility] [address] Sodium [Moles/Vol] 135 mmol/L Low 136-146 [facility] Comment on above: Performed By: #### C K, CKMB, CBC, BMP, BNP #### [facility] [address] Urea nitrogen [Mass/Vol] 17 mg/dL Normal 9-23 [facility] Comment on above: Performed By: #### C K, CKMB, CBC, BMP, BNP #### [facility] [address] COVID-19 Antigenon 2 COVID-19 Antigen Healthcare Worker?: N Bella Reference Blela Reference Negative SARS-CoV+SARS-CoV-2 (COVID-19) Ag [Presence] in [...] its performance Bella Disclaimer characteristic determined by [employer] and Bella Disclaimer validated at [facility]. This Bella Disclaimer test has not [...] is terminated or revoked sooner. PERFORMED BY: [place] [address] PATHOLOGIST EDITORIAL DIRECTOR SHIMA SY M.D. Normal [facility] Comment on above: Performed By: #### F CARLA, COVID-19 BELLA, SOFIANEG #### [address] Complete Blood Count Auto Di ffon 10-10-2021 Basophils (Bld) [#/Vol] 0.1 10*3/uL Normal 0.0-0.2 [facility] Comment on above: Result Comment: PERF ORMED BY: [place] [address] PATHOLOGIST EDITORIAL DIRECTOR SHIMA SY M.D. Performed By: #### C K, CKMB, CBC, BMP, BNP #### [address] Basophils/100 WBC (Bld) 1.4 % Normal . [facility] Comment on above: Performed By: #### C K, CKMB, CBC, BMP, BNP #### [address] Eosinophils (Bld) [#/Vol] 0.2 10*3/uL Normal 0.0-0.45 [facility] Comment on above: Performed By: #### C K, CKMB, CBC, BMP, BNP #### [address] Eosinophils/100 WBC (Bld) 2.3 % Normal . [facility] Comment on above: Performed By: #### C K, CKMB, CBC, BMP, BNP #### [address] Erythrocyte distribution width (RBC) [Ratio] 13.2 % Normal 11.9-15.3 [facility] Comment on above: Performed By: #### C K, CKMB, CBC, BMP, BNP #### [address] Hematocrit (Bld) [Volume fraction] 41.5 % Normal 34.0-46.4 [facility] Comment on above: Performed By: #### C K, CKMB, CBC, BMP, BNP #### [address] Hemoglobin (Bld) [Mass/Vol] 13.8 g/dL Normal 11.8-15.4 [facility] Comment on above: Performed By: #### C K, CKMB, CBC, BMP, BNP #### [address] Lymphocytes (Bld) [#/Vol] 3.6 10*3/uL Normal 1.00-4.8 [facility] Comment on above: Performed By: #### C K, CKMB, CBC, BMP, BNP #### [address] Lymphocytes/100 WBC (Bld) 39.0 % Normal . [facility] Comment on above: Performed By: #### C K, CKMB, CBC, BMP, BNP #### [address] MCH (RBC) [Entitic mass] 30.7 pg Normal 24.7-34.3 [facility] Comment on above: Performed By: #### C K, CKMB, CBC, BMP, BNP #### [address] MCV (RBC) [Entitic vol] 91.9 fL Normal 80-100 [facility] Comment on above: Performed By: #### C K, CKMB, CBC, BMP, BNP #### [address] Mean Corpuscular HGB Conc 33.4 g/dL Normal 32.0-35.0 [facility] Comment on above: Performed By: #### C K, CKMB, CBC, BMP, BNP #### [address] Monocytes (Bld) [#/Vol] 0.8 10*3/uL Normal 0.0-0.8 [facility] Comment on above: Performed By: #### C K, CKMB, CBC, BMP, BNP #### [address] Monocytes/100 WBC (Bld) 9.0 % Normal . [facility] Comment on above: Performed By: #### C K, CKMB, CBC, BMP, BNP #### [address] Neutrophils (Bld) [#/Vol] 4.4 10*3/uL Normal 1.8-7.7 [facility] Comment on above: Performed By: #### C K, CKMB, CBC, BMP, BNP #### [address] Neutrophils/100 WBC (Bld) 48.3 % Normal . [facility] Comment on above: Performed By: #### C K, CKMB, CBC, BMP, BNP #### [address] Nucleated RBC/100 WBC (Bld) [Ratio] 0.1 % Normal 0-0.5 [facility] Comment on above: Performed By: #### C K, CKMB, CBC, BMP, BNP #### [address] Platelet mean volume (Bld) [Entitic vol] 7.0 fL Normal 6.3-10.7 [facility] Comment on above: Performed By: #### C K, CKMB, CBC, BMP, BNP #### [address] Platelets (Bld) [#/Vol] 237 10*3/uL Normal 150-450 [facility] Comment on above: Performed By: #### C K, CKMB, CBC, BMP, BNP #### [place] [address] [place] RBC (Bld) [#/Vol] 4.51 10*6/uL Normal 3.60-5.00 [facility] Comment on above: Performed By: #### C K, CKMB, CBC, BMP, BNP #### [address] WBC (Bld) [#/Vol] 9.1 10*3/uL Normal 4.5-11.0 [facility] Comment on above: Performed By: #### C K, CKMB, CBC, BMP, BNP #### [address] Creatine Kinaseon 10-10-2021 CK [Catalytic activity/Vol] 69 U/L Normal 22-269 [facility] Comment on above: Performed By: #### C K, CKMB, CBC, BMP, BNP #### [address] Creatinine Kinase MBon 10-10 CK.MB [Mass/Vol] 3.1 ng/mL Normal 0.6-6.3 [facility] Comment on above: Performed By: #### F CARLA, COVID-19 BELLA, SOFIANEG #### [address] CKMB Relative Index 4.4 % High 0.00-2.50 [facility] Comment on above: Result Comment: PERF ORMED BY: [place] [address] PATHOLOGIST EDITORIAL DIRECTOR SHIMA SY M.D. Performed By: #### F CARLA, COVID-19 BELLA, SOFIANEG #### [address] ECG 12 lead ECGon 10-10-2021 ECG 12 lead ECG [facility] [place] [address] [place] [address] Electrocardiograph Report Signed Patient: Мария Roman MR#: [id number] : 1965 Acct:[id number] Age/Sex: 55 / F ADM Date: 10/10/21 Loc: ER Room: Type: [facility] ER Attending Dr: Ordering Provider: Kathryn Parks [...] leads Confirmed by KATHRYN PARKS DO ([id number]), editorial director Trent Garay ([id number]) on 10/11/2021 11:15:22 AM Referred By: Electronically Signed By:KATHRYN PARKS DO Transcribed By: MUS Signed By Kathryn Parks DO [id number] [facility] Influenza A and B Antigenon 10-10-2021 Influenza [...] samples is recommended. Note 7 PERFORMED BY: [place] [address] PATHOLOGIST EDITORIAL DIRECTOR SHIMA SY M.D. [facility] Comment on above: Performed By: #### F SHEA AGUIRRE-19 BELLA, SOFIANEG #### [address] Bella Ag Negativeon 10-11-19 Bella Ag Negative Negative Normal Negative [facility] Comment on above: Result Comment: This is a duplicate Bella SARS Antigen (BLAYNE) result to be used for statistical tracking purpose only. PERFORMED BY: [place] [address] PATHOLOGIST EDITORIAL DIRECTOR SHIMA SY M.D. Performed By: #### F CARLA, SANDERID-19 WILFRID BLANCOEG #### [address] Troponin I High Sensitivityo n 10-10-2021 Troponin I High Sensitivity 12 pg/mL Normal 0-15 [facility] Comment on above: Result Comment: PERF ORMED BY: [place] [address] PATHOLOGIST EDITORIAL DIRECTOR SHIMA SY M.D. Performed By: #### H S TROP #### [address] XR chest 1V portableon 10-10 XR chest 1V portable [facility] [place] [address] [place] [address] XRay Report Signed Patient: Мария Roman MR#: [id number] : 1965 Acct:[id number] Age/Sex: 55 / F ADM Date: 10/10/21 Loc: ER Room: Type: [facility] ER Attending Dr: Ordering Provider: Kathryn Parks [...] David Walker M.D.10/10/2021 7:52 PM Dictation Location: [place] [address] Transcribed By: ROMEL 10/10/211951 Dictated By: David Walker II, MD 10/10/211949 Signed By: 10/10/211951 [facility] XR ANKLE LEFT 3+ VIEWS (SHERRY ROSENBAUM)on [...] bodies. IMPRESSION: No obvious fractures or dislocations. [facility] Workstation ID: [id number] Dictated by: LOULOU TREVINO on [place] Jul 29, 2021 8:55:54 PM EST Transcribed by: DARYA SCHILLING on FriJul 29, 2021 8:57:24 PM EST Finalized by: LOULOU TREVINO on [place] Jul 29, 2021 10:03:27 PM EST Normal [facility] Comment on above: Order Comment: Injur y/Trauma or Illness?:Injury/Trauma How long have you had these symptoms (acute/chronic)?:Acute Reason for exam?:pain History of cancer?:u Surgeries, chemotherapy, or radiation?:u Type of Exam?:Initial Mechanism of injury?:fall Vital Signs Date Time Vital Sign Value Performing Clinician Facility 05-02-2025 15:33-0400 Body mass index (BMI) [Ratio] 27.6 kg/m2 Danya CHATTERJEE Work Phone: [facility] 05-02-2025 15:33-0400 Body weight 77.56 kg Danya CHATTERJEE Work Phone: [facility] 05-02-2025 15:33-0400 Diastolic blood pressure 80 mm[Hg] Danya CHATTERJEE Work Phone: [facility] 05-02-2025 15:33-0400 Systolic blood pressure 128 mm[Hg] Danya CHATTERJEE Work Phone: [facility] 04-25-2025 17:14-0400 Body height 168.91 cm Margarette Aichholz CARDIOLOGY SPECIALIST-C Work Phone: [facility] 04-25-2025 17:14-0400 Body mass index (BMI) [Ratio] 27.3 kg/m2 Margarette Aichholz CARDIOLOGY SPECIALIST-C Work Phone: [facility] 04-25-2025 17:14-0400 Body temperature 97.9 [degF] Margarette Aichholz CARDIOLOGY SPECIALIST-C Work Phone: [facility] 04-25-2025 17:14-0400 Body weight 78.15 kg Margarette Aichholz CARDIOLOGY SPECIALIST-C Work Phone: [facility] 04-25-2025 17:14-0400 Diastolic blood pressure 68 mm[Hg] Margarette Aichholz CARDIOLOGY SPECIALIST-C Work Phone: [facility] 04-25-2025 17:14-0400 Heart rate 80 /min Margarette Aichholz CARDIOLOGY SPECIALIST-C Work Phone: [facility] 04-25-2025 17:14-0400 Respiratory rate 20 /min Margarette Aichholz CARDIOLOGY SPECIALIST-C Work Phone: [facility] 04-25-2025 17:14-0400 SaO2% (BldA) [Mass fraction] 93 % Margarette Aichholz CARDIOLOGY SPECIALIST-C Work Phone: [facility] 04-25-2025 17:14-0400 Systolic blood pressure 110 mm[Hg] Margarette Aichholz CARDIOLOGY SPECIALIST-C Work Phone: [facility] 02-21-2025 18:14-0400 Body mass index (BMI) [Ratio] 28.18 kg/m2 Margarette Aichholz CARDIOLOGY SPECIALIST Work Phone: [facility] 02-21-2025 18:14-0400 Body temperature 97.81 [degF] Margarette Aichholz CARDIOLOGY SPECIALIST Work Phone: [facility] 02-21-2025 18:14-0400 Body weight 79.2 kg Margarette Aichholz CARDIOLOGY SPECIALIST Work Phone: [facility] 02-21-2025 18:14-0400 Diastolic blood pressure 74 mm[Hg] Margarette Aichholz CARDIOLOGY SPECIALIST Work Phone: [facility] 02-21-2025 18:14-0400 Heart rate 78 /min Margarette Aichholz CARDIOLOGY SPECIALIST Work Phone: [facility] 02-21-2025 18:14-0400 Respiratory rate 16 /min Margarette Aichholz CARDIOLOGY SPECIALIST Work Phone: [facility] 02-21-2025 18:14-0400 SaO2% (BldA) [Mass fraction] 96 % Margarette Aichholz CARDIOLOGY SPECIALIST Work Phone: [facility] 02-21-2025 18:14-0400 Systolic blood pressure 110 mm[Hg] Margarette Aichholz CARDIOLOGY SPECIALIST Work Phone: [facility] 12-22-2024 17:55-0400 Body mass index (BMI) [Ratio] 29.02 kg/m2 Margarette Aichholz CARDIOLOGY SPECIALIST Work Phone: [facility] 12-22-2024 17:55-0400 Body temperature 98.49 [degF] Margarette Aichholz CARDIOLOGY SPECIALIST Work Phone: [facility] 12-22-2024 17:55-0400 Body weight 81.56 kg Margarette Aichholz CARDIOLOGY SPECIALIST Work Phone: [facility] 12-22-2024 17:55-0400 Diastolic blood pressure 60 mm[Hg] Margarette Aichholz CARDIOLOGY SPECIALIST Work Phone: [facility] 12-22-2024 17:55-0400 Heart rate 63 /min Margarette Aichholz CARDIOLOGY SPECIALIST Work Phone: [facility] 12-22-2024 17:55-0400 Respiratory rate 18 /min Margarette Aichholz CARDIOLOGY SPECIALIST Work Phone: [facility] 12-22-2024 17:55-0400 SaO2% (BldA) [Mass fraction] 99 % Margarette Estevez CARDIOLOGY SPECIALIST Work Phone: [facility] 12-22-2024 17:55-0400 Systolic blood pressure 100 mm[Hg] Margarette Estevez CARDIOLOGY SPECIALIST Work Phone: [facility] 12-21-2024 15:54-0400 Body height 168.91 cm Chinmay Manning MD Work Phone: [facility] 12-21-2024 15:54-0400 Body mass index (BMI) [Ratio] 28.9 kg/m2 Chinmay Manning MD Work Phone: [facility] 12-21-2024 15:54-0400 Body weight 82.55 kg Chinmay Manning MD Work Phone: [facility] 12-21-2024 15:54-0400 Diastolic blood pressure 60 mm[Hg] Chinmay Manning MD Work Phone: [facility] 12-21-2024 15:54-0400 Heart rate 71 /min Chinmay Manning MD Work Phone: [facility] 12-21-2024 15:54-0400 Respiratory rate 18 /min Chinmay Manning MD Work Phone: [facility] 12-21-2024 15:54-0400 SaO2% (BldA) [Mass fraction] 97 % Chinmay Manning MD Work Phone: [facility] 12-21-2024 15:54-0400 Systolic blood pressure 108 mm[Hg] Chinmay Manning MD Work Phone: [facility] 09-22-2024 15:46-0400 Body mass index (BMI) [Ratio] 31.15 kg/m2 Margarette Estevez CARDIOLOGY SPECIALIST Work Phone: [facility] 09-22-2024 15:46-0400 Body temperature 98.4 [degF] Margarette Estevez CARDIOLOGY SPECIALIST Work Phone: [facility] 09-22-2024 15:46-0400 Body weight 87.54 kg Margarette Aritawesley CARDIOLOGY SPECIALIST Work Phone: [facility] 09-22-2024 15:46-0400 Diastolic blood pressure 80 mm[Hg] Margarette Aritawesley CARDIOLOGY SPECIALIST Work Phone: [facility] 09-22-2024 15:46-0400 Heart rate 77 /min Margarette Andradejose alejandro CARDIOLOGY SPECIALIST Work Phone: [facility] 09-22-2024 15:46-0400 Respiratory rate 20 /min Margarette Aritawesley CARDIOLOGY SPECIALIST Work Phone: [facility] 09-22-2024 15:46-0400 SaO2% (BldA) [Mass fraction] 97 % Margarette Aritawesley CARDIOLOGY SPECIALIST Work Phone: [facility] 09-22-2024 15:46-0400 Systolic blood pressure 124 mm[Hg] Margarette Aritawesley CARDIOLOGY SPECIALIST Work Phone: [facility] 08-17-2024 15:51-0500 Body height 167.64 cm Chinmay Manning MD Work Phone: [facility] 08-17-2024 15:51-0500 Body mass index (BMI) [Ratio] 32 kg/m2 Chinmay Manning MD Work Phone: [facility] 08-17-2024 15:51-0500 Body temperature 96.1 [degF] Chinmay Manning MD Work Phone: [facility] 08-17-2024 15:51-0500 Body weight 89.92 kg Chinmay Manning MD Work Phone: [facility] 08-17-2024 15:51-0500 Diastolic blood pressure 80 mm[Hg] Chinmay Manning MD Work Phone: [facility] 08-17-2024 15:51-0500 Heart rate 80 /min Chinmay Manning MD Work Phone: [facility] 08-17-2024 15:51-0500 Respiratory rate 18 /min Chinmay Manning MD Work Phone: [facility] 08-17-2024 15:51-0500 SaO2% (BldA) [Mass fraction] 99 % Chinmay Manning MD Work Phone: [facility] 08-17-2024 15:51-0500 Systolic blood pressure 131 mm[Hg] Chinmay Manning MD Work Phone: [facility] 06-23-2024 16:55-0500 Body height 167.6 cm Rosita Garza CARDIOLOGY SPECIALIST Work Phone: [facility] 06-23-2024 16:55-0500 Body mass index (BMI) [Ratio] 31.64 kg/m2 Rosita Garza CARDIOLOGY SPECIALIST Work Phone: [facility] 06-23-2024 16:55-0500 Body temperature 97.7 [degF] Rosita Garza CARDIOLOGY SPECIALIST Work Phone: [facility] 06-23-2024 16:55-0500 Body weight 88.91 kg Rosita Garza CARDIOLOGY SPECIALIST Work Phone: [facility] 06-23-2024 16:55-0500 Diastolic blood pressure 84 mm[Hg] Rosita Garza CARDIOLOGY SPECIALIST Work Phone: [facility] 06-23-2024 16:55-0500 Heart rate 111 /min Rosita Garza CARDIOLOGY SPECIALIST Work Phone: [facility] 06-23-2024 16:55-0500 Respiratory rate 16 /min Rosita Garza CARDIOLOGY SPECIALIST Work Phone: [facility] 06-23-2024 16:55-0500 SaO2% (BldA) [Mass fraction] 97 % Rosita Garza CARDIOLOGY SPECIALIST Work Phone: [facility] 06-23-2024 16:55-0500 Systolic blood pressure 122 mm[Hg] Rosita Garza CARDIOLOGY SPECIALIST Work Phone: [facility] 04-28-2024 15:13-0400 Body mass index (BMI) [Ratio] 31.13 kg/m2 Danya Najera PA Work Phone: [facility] 04-28-2024 15:13-0400 Body weight 88.81 kg Danya Najera PA Work Phone: [facility] 04-28-2024 15:13-0400 Diastolic blood pressure 72 mm[Hg] Danya Najera PA Work Phone: [facility] 04-28-2024 15:13-0400 Systolic blood pressure 120 mm[Hg] Danya [place] PA Work Phone: [facility] 03-24-2024 16:55-0400 Body height 168.9 cm Rosita Garza CARDIOLOGY SPECIALIST Work Phone: [facility] 03-24-2024 16:55-0400 Body mass index (BMI) [Ratio] 31.32 kg/m2 Rosita Garza CARDIOLOGY SPECIALIST Work Phone: [facility] 03-24-2024 16:55-0400 Body temperature 96.8 [degF] Rosita Garza CARDIOLOGY SPECIALIST Work Phone: [facility] 03-24-2024 16:55-0400 Body weight 89.36 kg Rosita Garza CARDIOLOGY SPECIALIST Work Phone: [facility] 03-24-2024 16:55-0400 Diastolic blood pressure 80 mm[Hg] Rosita Garza CARDIOLOGY SPECIALIST Work Phone: [facility] 03-24-2024 16:55-0400 Heart rate 102 /min Rosita Theodorek CARDIOLOGY SPECIALIST Work Phone: [facility] Comment on above: 96% O2 03-24-2024 16:55-0400 Systolic blood pressure 108 mm[Hg] Rostia Berrytrick CARDIOLOGY SPECIALIST Work Phone: [facility] 03-17-2024 16:24-0400 Body height 168.91 cm MD Chinmay Manning Work Phone: [facility] 03-17-2024 16:24-0400 Body mass index (BMI) [Ratio] 31.8 kg/m2 MD Chinmay Manning Work Phone: [facility] 03-17-2024 16:24-0400 Body temperature 97.8 [degF] MD Chinmay Manning Work Phone: [facility] 03-17-2024 16:24-0400 Body weight 90.88 kg MD Chinmay Manning Work Phone: [facility] 03-17-2024 16:24-0400 Diastolic blood pressure 81 mm[Hg] MD Chinmay Manning Work Phone: [facility] 03-17-2024 16:24-0400 Heart rate 97 /min MD Chinmay Manning Work Phone: [facility] 03-17-2024 16:24-0400 Respiratory rate 18 /min MD Chinmay Manning Work Phone: [facility] 03-17-2024 16:24-0400 SaO2% (BldA) [Mass fraction] 94 % MD Chinmay Manning Work Phone: [facility] 03-17-2024 16:24-0400 Systolic blood pressure 129 mm[Hg] MD Chinmay Manning Work Phone: [facility] 12-09-2023 15:25-0400 Body height 168.91 cm MD Chinmay Manning Work Phone: [facility] 12-09-2023 15:25-0400 Body mass index (BMI) [Ratio] 32.3 kg/m2 MD Chinmay Manning Work Phone: [facility] 12-09-2023 15:25-0400 Body temperature 97.3 [degF] MD Chinmay Manning Work Phone: [facility] 12-09-2023 15:25-0400 Body weight 92.24 kg MD Chinmay Manning Work Phone: [facility] 12-09-2023 15:25-0400 Diastolic blood pressure 72 mm[Hg] MD Chinmay Manning Work Phone: [facility] 12-09-2023 15:25-0400 Heart rate 113 /min MD Chinmay Manning Work Phone: [facility] 12-09-2023 15:25-0400 Respiratory rate 16 /min MD Chinmay Manning Work Phone: [facility] 12-09-2023 15:25-0400 SaO2% (BldA) [Mass fraction] 96 % MD Chinmay Manning Work Phone: [facility] 12-09-2023 15:25-0400 Systolic blood pressure 112 mm[Hg] MD Chinmay Manning Work Phone: [facility] 01-17-2022 16:30-0400 Body height 168.91 cm Bahman Meneses Other [facility] Other 01-17-2022 16:30-0400 Body mass index (BMI) [Ratio] 21.62 kg/m2 Bahman Meneses Other [facility] Other 01-17-2022 16:30-0400 Body weight 61.69 kg Bahman Astudilloack Other [facility] Other 10-16-2021 16:45-0400 Body height 168.91 cm Bahman Meneses Other [facility] Other 10-16-2021 16:45-0400 Body mass index (BMI) [Ratio] 20.98 kg/m2 Bahman Butlerormack Other [facility] Other 10-16-2021 16:45-0400 Body weight 59.88 kg Bahman Butlerormack Other [facility] Other 07-12-2021 11:05-0500 Body height 168.91 cm Christiana Ginty Other [facility] Other 07-12-2021 11:05-0500 Body temperature 97.5 [degF] Christiana Ginty Other [facility] Other 07-12-2021 11:05-0500 Diastolic blood pressure 106 mm[Hg] Christiana Ginty Other [facility] Other 07-12-2021 11:05-0500 Respiratory rate 18 /min Christiana Ginty Other [facility] Other 07-12-2021 11:05-0500 SaO2% (BldA) [Mass fraction] 98 % Christiana Ginty Other [facility] Other 07-12-2021 11:05-0500 Systolic blood pressure 153 mm[Hg] Christiana Lazaro Other [facility] Other 07-04-2021 12:00-0500 Body height 168.91 cm Justin Neutral Space II Other [facility] Other 07-04-2021 12:00-0500 Body mass index (BMI) [Ratio] 17.88 kg/m2 Justin Acisle II Other [facility] Other 07-04-2021 12:00-0500 Body weight 51.03 kg Justin Che II Other [facility] Other Encounters Encounter Date Encounter Type Care Provider Facility Start: 05-02-2025 End: 05-02-2025 Patient encounter procedure Danya CHATTERJEE Work Phone: [facility] Start: 05-02-2025 End: 05-02-2025 Periodic preventive med est patient 40-64yrs Danya CHATTERJEE Work Phone: [facility] Comment on above: Well woman exam with routine gynecological exam; H/O: hysterectomy; Encounter for screening mammogram for malignant neoplasm of breast; Hormone imbalance Start: 05-02-2025 End: 05-02-2025 Bamboo flowsheet Danya CHATTERJEE Work Phone: [facility] Start: 05-02-2025 End: 05-02-2025 Bamboo flowsheet Danya CHATTERJEE Work Phone: [facility] Start: 04-25-2025 End: 04-25-2025 ambulatory Margarette Estevez CARDIOLOGY SPECIALISTDemetri Work Phone: [facility] Work Phone: Start: 04-25-2025 End: 04-25-2025 Patient encounter procedure Margarette Estevez CARDIOLOGY SPECIALIST-C -[facility] Work Phone: Start: 02-21-2025 End: 02-21-2025 Office outpatient visit 25 minutes Margarette Estevez CARDIOLOGY SPECIALIST Work Phone: [facility] Comment on above: Primary hypertension (Primary Dx); Chronic kidney disease, stage 3b (CMS-HCC); Class 1 obesity due to excess calories with serious comorbidity in adult, unspecified BMI; Cigarette nicotine dependence without complication; Migraine without aura and without status migrainosus, not intractable ; Bipolar 2 disorder (HCC); Overweight (BMI 25.0-29.9); Bipolar II disorder (HCC) Start: 02-21-2025 End: 02-21-2025 ambulatory MARGARETTE ESTEVEZ Not Available Start: 02-21-2025 End: 02-21-2025 Bamboo flowsheet Margarette Estevez CARDIOLOGY SPECIALIST Work Phone: [facility] Start: 02-21-2025 End: 02-21-2025 Bamboo flowsheet Margarette Estevez CARDIOLOGY SPECIALIST Work Phone: [facility] Start: 02-09-2025 End: 02-09-2025 Refill Margarette Estevez CARDIOLOGY SPECIALIST Work Phone: [facility] Comment on above: Cigarette nicotine d ependence without complication Start: 01-13-2025 End: 01-13-2025 Refill Margarette Estevez CARDIOLOGY SPECIALIST Work Phone: [facility] Comment on above: Nausea and vomiting, unspecified vomiting type (Primary Dx) Start: 12-22-2024 End: 12-22-2024 Office outpatient visit 25 minutes Margarette Estevez CARDIOLOGY SPECIALIST Work Phone: [facility] Comment on above: Primary hypertension (Primary Dx); Chronic kidney disease, stage 3b (HCC) (CMS/HCC); Class 1 obesity due to excess calories with serious comorbidity in adult, unspecified BMI; Anxiety; Bipolar II disorder (HCC); Cigarette nicotine dependence without complication; Migraine without aura and without status migrainosus, not intractable ; Bipolar 2 disorder (HCC) Start: 12-22-2024 End: 12-22-2024 ambulatory MARGARETTE ESTEVEZ Not Available Start: 12-21-2024 End: 12-21-2024 ambulatory Chinmay Manning MD Work Phone: [facility] Work Phone: Start: 12-21-2024 End: 12-21-2024 Patient encounter procedure Chinmay Manning MD Work Phone: [facility] Physician [facility] [place] Work Phone: Start: 12-14-2024 End: 12-14-2024 Clinisync Result Encounter Generic External Data Provider [facility] External Department Unsolicited Start: 12-14-2024 End: 12-14-2024 Clinisync Result Encounter Generic External Data Provider [facility] External Department Unsolicited Start: 12-14-2024 Non-patient / Non-visit Jeff Manning MD Work Phone: [facility] Physician [facility] Work Phone: Start: 10-22-2024 Registered Recurring Peyton Manning MD Work Phone: [facility] Start: 09-22-2024 End: 09-22-2024 Office outpatient visit 25 minutes Margarette Estevez CARDIOLOGY SPECIALIST Work Phone: [facility] Comment on above: Primary hypertension (CMS/HCC) [...] 09-22-2024 End: 09-22-2024 Bamboo flowsheet Margarette Estevez CARDIOLOGY SPECIALIST Work Phone: [facility] Start: 09-22-2024 End: 09-22-2024 Bamboo flowsheet Margarette Estevez CARDIOLOGY SPECIALIST Work Phone: [facility] Start: 08-17-2024 End: 08-17-2024 ambulatory Chinmay Manning MD Work Phone: [facility] Work Phone: Start: 08-17-2024 End: 08-17-2024 Patient encounter procedure Chinmay Manning MD Work Phone: [facility] Physician [facility] [place] Work Phone: Start: 08-07-2024 Non-patient / Non-visit Jeff Manning MD Work Phone: [facility] Physician [facility] Work Phone: Start: 07-29-2024 Registered Recurring Peyton Manning MD Work Phone: [facility] Start: 06-23-2024 End: 06-23-2024 Office outpatient visit 15 minutes Rosita Garza NP Work Phone: [facility] Comment on [...] spasm Start: 06-23-2024 End: 06-23-2024 ambulatory ROSITA MULLERZPATRICK Not Available Start: 06-23-2024 End: 06-23-2024 Bamboo flowsheet Rosita Mullerzpatrick CARDIOLOGY SPECIALIST Work Phone: [facility] Start: 06-23-2024 End: 06-23-2024 Bamboo flowsheet Rosita Berrytrick CARDIOLOGY SPECIALIST Work Phone: [facility] Start: 05-27-2024 End: 05-27-2024 Telephone encounter Danya CHATTERJEE Work Phone: [facility] Start: 04-28-2024 End: 04-28-2024 Patient encounter procedure Danya CHATTERJEE Work Phone: [facility] Work Phone: Start: 04-28-2024 End: 04-28-2024 Periodic preventive med est patient 40-64yrs Danya CHATTERJEE Work Phone: [facility] Comment on above: Well woman [...] Clinisync Result Encounter Danya CHATTERJEE Work Phone: [facility] External Department Unsolicited Start: 03-24-2024 End: 03-24-2024 Office outpatient visit 15 minutes Rosita Garza CARDIOLOGY SPECIALIST Work Phone: [facility] Comment on above: Primary hypertension (CMS/HCC) (Primary Dx); Stage 3a chronic kidney disease (HCC) (CMS/HCC); Class 1 obesity due to excess calories without serious comorbidity with body mass index (BMI) of 33.0 to 33.9 in adult; Tobacco dependency; Bipolar 2 disorder ([facility]/HCC) Start: 03-24-2024 End: 03-24-2024 ambulatory ROSITA GARZA Not Available Start: 03-24-2024 End: 03-24-2024 Bamboo flowsheet Rosita Garza CARDIOLOGY SPECIALIST Work Phone: [facility] Start: 03-24-2024 End: 03-24-2024 Bamboo flowsheet Rosita Garza CARDIOLOGY SPECIALIST Work Phone: [facility] Start: 03-17-2024 End: 03-17-2024 ambulatory MD Chinmay Manning Work Phone: [facility] Work Phone: Start: 03-17-2024 End: 03-17-2024 Patient encounter procedure MD Chinmay Manning Work Phone: [facility] Physician [facility] [place] Work Phone: Start: 02-21-2024 Non-patient / Non-visit MD Zeny Manning Work Phone: [facility] Physician [facility] Work Phone: Start: 12-26-2023 Registered Recurring MD Jeff Manning Work Phone: [facility] Start: 12-09-2023 End: 12-09-2023 ambulatory MD Chinmay Manning Work Phone: [facility] Work Phone: Start: 12-09-2023 End: 12-09-2023 Patient encounter procedure MD Chinmay Manning Work Phone: [facility] Physician [facility] [place] Work Phone: Start: 09-25-2023 Registered Recurring MD Jeff Manning Work Phone: [facility] Start: 08-22-2023 End: 08-22-2023 ambulatory Jorge Luis Jenn Other [facility] Other Start: 08-22-2023 Clinisync Result Encounter Shaikh Cecilio WALKER Work Phone: [facility] External Department Unsolicited Start: 08-22-2023 Clinisync Result Encounter Shaikh Cecilio WALKER Work Phone: [facility] External Department Unsolicited Start: 08-22-2023 Telephone encounter Jorge Luis Barajas [facility] Start: 07-02-2022 End: 07-03-2022 ambulatory BECCA ESPINALEN Facility:[facility] Start: 06-07-2022 End: 06-08-[address] ETHAN COATS Facility: Start: 01-28-2022 End: 01-28-2022 ambulatory Bahman Meneses Other [facility] Other Start: 01-28-2022 Telephone encounter Bahman vasquez [facility] Start: 01-17-2022 End: 01-17-2022 ambulatory Bahman Meneses Other [facility] Other Start: 01-17-2022 Office outpatient vi sit 15 minutes Bahman Meneses [facility] Start: 11-09-2021 End: 11-09-2021 ambulatory Bahman Meneses Other [facility] Other Start: 11-09-2021 Telephone encounter Bahman vasquez [facility] Start: 10-16-2021 End: 10-16-2021 ambulatory Bahman Meneses Other [facility] Other Start: 10-16-2021 Office outpatient vi sit 15 minutes Bahman Meneses [facility] Start: 10-10-2021 End: 10-11-2021 Emergency department patient visit Ethan [place] Facility:[facility] Start: 07-28-2021 End: 08-04-2021 Evaluation and management of inpatient ELIANE Butler [facility] Start: 07-12-2021 End: 07-12-2021 ambulatory Christiana Justynay Other [facility] Other Start: 07-12-2021 Office outpatient vi sit 15 minutes Christiana Ginty [facility] Start: 07-04-2021 End: 07-04-2021 ambulatory Justin Guadalupe II Other [facility] Other Start: 07-04-2021 Office outpatient ne w 30 minutes Justin Guadalupe II [facility] Procedures Date Procedure Procedure Detail Performing Clinician Start: 12-23-2024 Colonoscopy Margarette palumbo CARDIOLOGY SPECIALIST Work Phone: Start: 12-14-2024 [facility] CBC WITH PLATEL ET NO DIFFERENTIAL Generic External Data Provider Start: 12-14-2024 ALL URINALYSIS Generic External Data Provider Start: 05-14-2024 Mammography Dnaya CHATTERJEE Work Phone: Start: 04-28-2024 IGP,APTIMA HPV,AGE GDLN Dayna CHATTERJEE Work Phone: Start: 04-28-2024 Microscopic observat ion [Identifier] in Cervix by Cyto stain Margarette Estevez CARDIOLOGY SPECIALIST Work Phone: Start: 04-28-2024 PAP TEST, EXTERNAL Core y Arminda DO Work Phone: Start: 08-22-2023 ALL BUN Shaikh Jose hernandez MD Work Phone: Start: 08-22-2023 TBH CREATININE Shaikh Conchis pinto MD Work Phone: H/O: hysterectomy H/O: hysterectomy Danya CHATTERJEE Work Phone: Plan of Treatment Date Care Activity Detail Author Start: 12-23-2034 Screening for malign ant neoplasm of colon [facility] Start: 04-28-2027 Screening for malign ant neoplasm of cervix [facility] Start: 05-11-2026 End: 05-11-2026 Patient encounter procedure 05/11/2026 3:00 PM EDT Procedure Visit [facility] [address] [place] [id number] Danya Najera PA [address] [place] [address] [facility] Start: 05-14-2025 Screening for malign ant neoplasm of breast Mammogram [facility] Start: 05-02-2025 End: 05-02-2025 Patient encounter procedure [facility] Comment on above: Arrived Start: 05-02-2025 End: 07-02-2026 MG Breast - bilateral Screening Bilateral screening mammogram Imaging Routine Encounter for screening mammogram for malignant neoplasm of breast Expected: 05/02/2025 (Approximate), Expires: 07/02/2026 [facility] Work Phone: Comment on above: Expected: 05/02/2025 (Approximate), Expires: 07/02/2026 Start: 04-25-2025 End: 04-25-2025 Patient encounter procedure 04/25/2025 5:00 PM EDT Office Visit [facility] [address] [place] [address] Margarette Estevez, JAIME [address] [place] [id number] [facility] Start: 03-14-2025 Influenza vaccination [facility] Start: 02-21-2025 End: 02-21-2025 [facility] Comment on above: Primary hypertension (Primary Dx); Chronic kidney disease, stage 3b (CMS-HCC); Class 1 obesity due to excess calories with serious comorbidity in adult, unspecified BMI; Cigarette nicotine dependence without complication Start: 12-22-2024 End: 12-22-2024 Patient encounter procedure 12/22/2024 6:00 PM EDT Office Visit [facility] [address] [place] [address] Margarette Estevez, JAIME [address] [place] [phone] [facility] Start: 11-17-2024 Influenza vaccination Influenza Vacc ine (#1) [facility] Comment on above: Postponed from 03/14 (Patient Refused) Start: 09-22-2024 End: 09-22-2024 Patient encounter procedure 09/22/2024 3:20 PM EDT Office Visit [facility] [address] [place] [address] Margarette Estevez, JAIME [address] [place] [address] Primary hypertension (CMS/HCC) (Primary Dx); Bipolar II [...] nuts (other than peanuts); Mixed hyperlipidemia (CMS/HCC) [facility] Comment on above: Primary hypertension (CMS/HCC) (Primary [...] EDT Office Visit [facility] [address] [place] [address] Danya Najera PA [address] [place] [address] Arrived [facility] Comment on above: [...] screening by mammogram Expected: 04/28/2024, Expires: 06/28/2025 [facility] Work Phone: Comment on above: Expected: 04/28/2024 , Expires: 06/28/2025 Start: 03-24-2024 End: 03-24-2024 Patient encounter procedure 03/24/2024 5:00 PM EDT Office Visit [facility] [address] [place] [address] Rosita Garza NP [address] [place] [phone] Arrived [facility] Comment on above: Arrived Start: 03-14-2024 Influenza vaccination Influenza Vacc ine (#1) [facility] Start: 11-17-2023 End: 11-17-2023 Patient encounter procedure 11/17/2023 5:00 PM EDT Office Visit [facility] [address] [place] [address] Shaikh Hernandes MD [address] [place] [address] [facility] Start: 09-12-2023 Screening for malign ant neoplasm of breast Mammogram [facility] Comment on above: Postponed from 12/07 (Insurance / Financial) Start: 03-14-2023 Influenza vaccination Influenza Vacc ine (#1) [facility] Start: 2003 Screening for malign ant neoplasm of breast Mammogram [facility] Start: 12-07-1993 Screening for malign ant neoplasm of cervix [facility] Start: 12-07-1984 Screening for malign ant neoplasm of cervix Pap Smear [facility] Start: 1963 Medicare Annual Well ness (AWV) Medicare Annual Wellness (AWV) [facility] Start: 1963 Screening for malign ant neoplasm of colon [facility] Renal function 1999 panel - Serum or Plasma [facility] Renal function 1999 panel - Serum or Plasma [facility] Renal function 1999 panel - Serum or Plasma [facility] Renal function 1999 panel - Serum or Plasma [facility] THIN PREP TIS PAP AN D HR HPV DNA THIN PREP TIS PAP AND HR HPV DNA Pathology and Cytology Routine Well woman exam with routine gynecological exam Ordered: 04/28/2024 [facility] Comment on above: Ordered: 04/28/2024 THIN PREP TIS PAP AN D HR HPV DNA THIN PREP TIS PAP AND HR HPV DNA Pathology and Cytology Routine Well woman exam with routine gynecological exam H/O: hysterectomy Ordered: 05/02/2025 [facility] Comment on above: Ordered: 05/02/2025 [facility] Immunizations Immunization Date Immunization Notes Care Provider Fa cility 07-12-2021 tetanus and diphther ia toxoids, adsorbed, preservative free, for adult use (5 Lf of tetanus toxoid and 2 Lf of diphtheria toxoid) Christiana Lazaro Other [employer] Other Payers Date Payer Category Payer Unknown [id number] 2022 Blue [employer] Blue Shield [id number] [id number] 01.315 2022 Unknown [id number] 2022 Unknown [id number] 2021 Medicare [id number] 2021 Medicare (Managed Care) 1.2. [id number] 21.315 2021 Unknown [id number] 1965 Unknown [id number] 2.16. [id number] 1963 Unknown [id number] 2.16.84 [id number] 1963 Unknown [id number] 2.16.84 [id number] 1963 Unknown [id number] 2.16.8 [id number] 1963 Unknown [id number] 2.16.8 [id number] 1963 Unknown [id number] 2.16.84 [id number] 1963 Unknown [id number] 2.16.84 [id number] 1963 Unknown [id number] 2.16.84 [id number] 1963 Unknown [id number] 2.16.84 [id number] 1959 Unknown [id number] Medicare [id number] 2.1 [id number] Self-pay Self Pay [id number] Social History Date Type Detail Facility Unknown if ever smoked [employer] Other Start: 08-18-2023 End: 03-24-2024 Sex Assigned At [facility] [employer] Other Start: 07-14-1983 End: 03-24-2024 Tobacco smoking status DEIS Smokes tobacco daily [facility] Start: 07-14-1983 History of tobacco use Cigarette Smo ker [facility] Start: 06-16-2023 End: 03-24-2024 Cigarettes smoked current (pack per day) - Reported 0.5 [facility] Start: 06-16-2023 End: 03-24-2024 Tobacco use and exposure Smokeless tobacco non-user [facility] Start: 08-18-2023 End: 05-02-2025 Alcohol intake Lifetime non-drinker (finding) [facility] Start: 1965 Sex Assigned At Not on file N [facility] Start: 12-09-2023 End: 12-21-2024 Tobacco smoking status DEIS Smoker (finding) [facility] Start: 1965 Sex Assigned At Female F [facility] Start: 08-17-2024 End: 12-21-2024 Sex Female (finding) [facility] Start: 09-25-2022 Sex Female [facility] Medical Equipment Procedure Code Equipment Code Equipment Origin al Text Equipment Identifier Dates Capsule endoscopy, for patency of lumen evaluation Video capsule endoscopy system [id number] [facility] Start: 08-16-2019 Clinical Notes 04-08-2014 to 05-02-2025 SHENA Stubbs - 05/02/2025 3:00 PM EDT Note Date & Type Note Facility 05-02-2025 History of Presen t illness Narrative Reason for Appointment: Patient ID: Millicent Roman is a 59 y.o. female who presents for Gynecologic Exam Patient presents today for Annual Exam. MEDICATIONS Current Outpatient Medications Medication Instructions alendronate-cholecalciferol (Fosamax Plus D) 70-5600 MG-UNIT tablet 1 tablet, Oral, Every 7 days, Take in the morning with a full glass of water, on an empty stomach, and do not take anything else by mouth or lie down for the next 30 min. EPINEPHrine (EPIPEN) 0.3 mg, Injection, Once, use as directed for allergic reaction and then call 911 estradiol (ESTRACE) 1 mg, Oral, Daily losartan (COZAAR) 100 mg, Oral, Daily magnesium oxide (MAG-OX) 400 mg, Daily omeprazole (PRILOSEC) 20 mg, Daily before breakfast paliperidone (INVEGA) 3 mg, Every morning topiramate (TOPAMAX) 100 mg, Oral, Daily traZODone (DESYREL) 200 mg, Nightly varenicline (CHANTIX) 1 mg, Oral, 2 times daily, Take with full glass of water. ALLERGIES Allergies Allergen Reactions Other Hives, Shortness of breath and Swelling Especially black walnuts Bactrim [Sulfamethoxazole-Trimethoprim] Bee Pollen Bee Venom Hives Black [place] Flavoring Agent (Non-Screening) Walnuts Ciprofloxacin Hives Codeine Depakote [Valproic Acid] Dilaudid [Hydromorphone] E.E.S. [Erythromycin] Hydrocodone-Acetaminophen Lyrica [Pregabalin] Phenergan [Promethazine] Sulfamethoxazole Hives PROBLEMS Active Ambulatory Problems Diagnosis Date Noted Primary hypertension 06/16/2023 Migraine without aura and without status migrainosus, not intractable 06/16/2023 Anxiety 07/28/2021 Allergy to nuts (other than peanuts) 08/18/2023 Abnormal renal ultrasound 08/18/2023 Back spasm Bipolar II disorder (HCC) 09/22/2024 Chronic kidney disease, stage 3b ([facility]) 09/22/2024 Cigarette nicotine dependence without complication 09/22/2024 Colon cancer screening 09/22/2024 Mixed hyperlipidemia 09/22/2024 Encounter for screening for lung cancer 09/22/2024 Nausea and vomiting 01/13/2025 Overweight (BMI 25.0-29.9) 02/21/2025 Resolved Ambulatory Problems Diagnosis Date Noted Stage 3a chronic kidney disease ([facility]) 06/16/2023 Tobacco dependency 06/16/2023 Bipolar 2 disorder ([facility]) 11/17/2023 Screening for hyperlipidemia 02/12/2024 Screening for diabetes mellitus 02/12/2024 Class 1 obesity due to excess calories without serious comorbidity with body mass index (BMI) of 33.0 to 33.9 in adult 02/12/2024 Class 1 obesity due to excess calories with serious comorbidity in adult 09/22/2024 Past Medical History: Diagnosis Date Abnormal foot pulse Anxiety and depression Arthritis Atypical migraine Back problem Blood pressure elevated without history of HTN Depression with anxiety Dry mouth Elevated serum creatinine History of IBS Hormone replacement therapy (postmenopausal) Irritable bowel syndrome with diarrhea Irritable bowel syndrome with diarrhea Kidney disease Migraine headache Migraines Multiple sclerosis Multiple sclerosis Onychomycosis PTSD (post-traumatic stress disorder) Stomach problems Urinary frequency Vision impairment HISTORY PAST MEDICAL HISTORY SOCIAL HISTORY Past Medical History: Diagnosis Date Abnormal foot pulse Anxiety and depression Arthritis Atypical migraine Back problem Back spasm Blood pressure elevated without history of HTN Depression with anxiety Dry mouth Elevated serum creatinine History of IBS Hormone replacement therapy (postmenopausal) Irritable bowel syndrome with diarrhea Irritable bowel syndrome with diarrhea Kidney disease Migraine headache Migraines Multiple sclerosis Multiple sclerosis Onychomycosis PTSD (post-traumatic stress disorder) Stomach problems Urinary frequency Vision impairment Social History Tobacco Use Smoking status: Every Day Current packs/day: 0.50 Average packs/day: 0.5 packs/day for 41.8 years (20.9 ttl pk-yrs) Types: Cigarettes Start date: 1983 [...] Exam Constitutional: Appearance: Normal appearance. She is well-developed. Genitourinary: Vulva normal. Right Adnexa: not tender and no mass present. Left Adnexa: not tender and no mass present. No cervical discharge. Breasts: Breasts are soft. Right: Normal. Left: Normal. HENT: Head: Normocephalic. Nose: Nose normal. Mouth/Throat: Mouth: Mucous membranes are moist. Cardiovascular: Rate and Rhythm: Normal rate and regular rhythm. Pulmonary: Effort: Pulmonary effort is normal. Breath [...] and Affect: Mood normal. Behavior: Behavior normal. Vitals and nursing note reviewed. Exam conducted with a baller tender present. Vitals: Estimated body mass index is 28.18 kg/m as calculated from the following: Height as of 06/23/24: 5' 6 . Weight as of 02/21/25: 174 lb 9.6 oz. BP: No LMP recorded. (Menstrual status: No Periods). Assessment/Plan ICD-10-CM 1. Well woman exam with routine gynecological exam Z01.419 THIN PREP TIS PAP AND HR HPV DNA 2. H/O: hysterectomy Z90.710 THIN PREP TIS PAP AND HR HPV DNA 3. Encounter for screening mammogram for malignant neoplasm of breast Z12.31 Bilateral screening mammogram Bilateral screening mammogram Annual: Patient presents today for an annual exam. Patient states she is doing well and has no complaints. Pap was obtained without difficulty and patient given mammogram order to have scheduled/obtained. Orders Placed This Encounter Procedures Bilateral screening mammogram Follow Up: Patient is to return in one year for annual unless needed otherwise. Documented by Teresa Flores MA on behalf of: SHENA Stubbs documented in this encounter [facility] 05-02-2025 Evaluation note Diagnosis Primary hypertension- Primary Unspecified essential hypertension Stage 3a chronic kidney disease (CMS-HCC) Migraine without aura and without status migrainosus, not intractable Tobacco dependency Tobacco use disorder Primary hypertension- Primary Unspecified essential hypertension Stage 3a chronic kidney disease (CMS-HCC) Abnormal renal ultrasound Primary hypertension- Primary Unspecified essential hypertension Stage 3a chronic kidney disease (CMS-HCC) Tobacco dependency Tobacco use disorder Bipolar 2 disorder (HCC) Other bipolar disorders Allergic reaction to bee sting Screening for hyperlipidemia- Primary Screening for lipoid disorders Screening for diabetes mellitus Primary hypertension Unspecified essential hypertension Tobacco dependency Tobacco use disorder Class 1 obesity due to excess calories without serious comorbidity with body mass index (BMI) of 33.0 to 33.9 in adult Primary hypertension- Primary Unspecified essential hypertension Stage 3a chronic kidney disease (CMS-HCC) Class 1 obesity due to excess calories without serious comorbidity with body mass index (BMI) of 33.0 to 33.9 in adult Tobacco dependency Tobacco use disorder Bipolar 2 disorder (HCC) Other bipolar disorders Primary hypertension- Primary Unspecified essential hypertension Stage 3a chronic kidney disease (CMS-HCC) Class 1 obesity due to excess calories without serious comorbidity with body mass index (BMI) of 33.0 to 33.9 in adult Screening for hyperlipidemia Screening for lipoid disorders Tobacco dependency Tobacco use disorder Bipolar 2 disorder (HCC) Other bipolar disorders Migraine without aura and without status migrainosus, not intractable Back spasm Other symptoms referable to back Primary hypertension- Primary Unspecified essential hypertension Bipolar II disorder (HCC) Other bipolar disorders Chronic kidney disease, stage 3b (CMS-HCC) Class 1 obesity due to excess calories with serious comorbidity in adult, unspecified BMI Anxiety Anxiety state, unspecified Migraine without aura and without status migrainosus, not intractable Cigarette nicotine dependence without complication Allergy to nuts (other than peanuts) Allergy to other foods Mixed hyperlipidemia Encounter for screening for lung cancer Back spasm Other symptoms referable to back Bipolar 2 disorder (HCC) Other bipolar disorders Primary hypertension- Primary Unspecified essential hypertension Chronic kidney disease, stage 3b (CMS-HCC) Class 1 obesity due to excess calories with serious comorbidity in adult, unspecified BMI Anxiety Anxiety state, unspecified Bipolar II disorder (HCC) Other bipolar disorders Cigarette nicotine dependence without complication Migraine without aura and without status migrainosus, not intractable Bipolar 2 disorder (HCC) Other bipolar disorders Primary hypertension- Primary Unspecified essential hypertension Chronic kidney disease, stage 3b ([facility]) Class 1 obesity due to excess calories with serious comorbidity in adult, unspecified BMI Cigarette nicotine dependence without complication Migraine without aura and without status migrainosus, not intractable Bipolar 2 disorder (HCC) Other bipolar disorders Overweight (BMI 25.0-29.9) Overweight Bipolar II disorder (HCC) Other bipolar disorders Well woman exam with routine gynecological exam Routine gynecological examination H/O: hysterectomy Acquired absence of both cervix and uterus Encounter for screening mammogram for malignant neoplasm of breast Hormone imbalance [facility] in this [id number] History of Present illness Narrative* Margarette Estevez NP - 02/21/2025 6:47 PM EDTAssociated Problem(s): Bipolar II disorder (HCC) Follow with [facility] * Margarette Estevez NP - 02/21/2025 6:47 PM EDTAssociated Problem(s): Overweight (BMI 25.0-29.9) Has lost about 35 pounds since 03/06 Has made dietary changes as well * ALEJANDRO EVANGELISTA - 02/21/2025 6:00 PM EDT Here for refills * Margarette Estevez NP - 02/21/2025 6:00 PM EDT Images from the original note were not included. Millicent Roman is a 59 y.o. female presents with chief complaint of Hypertension HPI: Doing well on chantix, has completed starter pack and most of 2nd month, down to less than 1/2 packcigs daily No worsening depression/anxiety noted Sleep is ok as well Has been watching what she is eating, cut out a lot a junk food Migraine MARTINEZ: years, 3 per month, trigger weather, +photo/phonophobia, +nausea, topamax works Hypertension This is a chronic problem. The problem is unchanged. The problem is controlled. Pertinent negativesinclude no chest pain, headaches, orthopnea, palpitations, peripheral edema or shortness of breath.There are no associated agents to hypertension. Risk factors for coronary artery disease include smoking/tobacco exposure. Past treatments include angiotensin blockers. The current treatment providessignificant improvement. There are no compliance problems. SUBJECTIVE: MEDICATIONS: Current Outpatient Medications Medication Instructions alendronate-cholecalciferol (Fosamax Plus D) 70-5600 MG-UNIT tablet 1 tablet, Oral, Every 7 days, Take in the morning with a full glass of water, on an empty stomach, and do not take anything else bymouth or lie down for the next 30 min. EPINEPHrine (EPIPEN) 0.3 mg, Injection, Once, use as directed for allergic reaction and then call 911 estradiol (ESTRACE) 1 mg, Oral, Daily losartan (COZAAR) 100 mg, Oral, Daily magnesium oxide (MAG-OX) 400 mg, Daily omeprazole (PRILOSEC) 20 mg, Daily before breakfast paliperidone (INVEGA) 3 mg, Every morning topiramate (TOPAMAX) 100 mg, Oral, Daily traZODone (DESYREL) 200 mg, Nightly varenicline (CHANTIX) 1 mg, Oral, 2 times daily, Take with full glass of water. ALLERGIES: Allergies Allergen Reactions Other Hives, Shortness of breath and Swelling Especially black walnuts Bactrim [Sulfamethoxazole-Trimethoprim] Bee Pollen Bee Venom Hives Black [place] Flavoring Agent (Non-Screening) Walnuts Ciprofloxacin Hives Codeine Depakote [Valproic Acid] Dilaudid [Hydromorphone] E.E.S. [Erythromycin] Hydrocodone-Acetaminophen Lyrica [Pregabalin] Phenergan [Promethazine] Sulfamethoxazole Hives REVIEW OF SYMPTOMS: Review of Systems Constitutional: Negative for appetite change, chills and fever. HENT: Negative for congestion, ear pain and sore throat. Eyes: Negative for pain, discharge, redness and visual disturbance. Respiratory: Negative for cough, shortness of breath and wheezing. Cardiovascular: Negative for chest pain, palpitations, orthopnea and leg swelling. Gastrointestinal: Negative for abdominal pain, blood in stool, constipation, diarrhea, nausea and vomiting. Genitourinary: Negative for difficulty urinating, dysuria and frequency. Musculoskeletal: Negative for arthralgias, back pain, joint swelling and myalgias. Skin: Negative for rash and wound. Neurological: Negative for dizziness, tremors, seizures, syncope and headaches. Psychiatric/Behavioral: Negative for behavioral problems, self-injury and suicidal ideas. The patient is not nervous/anxious. Hematological: Does not bruise/bleed easily. Endocrine: Negative for polydipsia, polyphagia and polyuria. Allergic/Immunologic: Negative for environmental allergies and food allergies. PAST MEDICAL HISTORY Past Medical History: Diagnosis Date Abnormal foot pulse Anxiety and depression Arthritis Atypical migraine Back problem Back spasm Blood pressure elevated without history of HTN Depression with anxiety Dry mouth Elevated serum creatinine History of IBS Hormone replacement therapy (postmenopausal) Irritable bowel syndrome with diarrhea Irritable bowel syndrome with diarrhea Kidney disease Migraine headache Migraines Multiple sclerosis (HCC) Multiple sclerosis (HCC) Onychomycosis PTSD (post-traumatic stress disorder) Stomach problems Urinary frequency Vision impairment Past Surgical History: Procedure Laterality Date APPENDECTOMY 11/13/2010 CHOLECYSTECTOMY 02/24/2023 COLONOSCOPY 2020 HYSTERECTOMY 2019 TONSILLECTOMY family history includes Cancer in her mother; Coronary artery disease in her father and mother; Hypertension in her father and mother; Kidney disease in her mother; Stroke in her father. OBJECTIVE: Visit Vitals BP 110/74 (BP Location: Left arm, Patient Position: Sitting, BP Cuff Size: Adult long) Pulse 78 Temp 97.8 F (Temporal) Resp 16 Wt 174 lb 9.6 oz SpO2 96% BMI 28.18 kg/m OB Status No Periods Smoking Status Every Day BSA 1.92 m Physical Exam Vitals and nursing note reviewed. Constitutional: General: She is not in acute distress. Appearance: Normal appearance. HENT: Head: Normocephalic and atraumatic. Right Ear: External ear normal. Left Ear: External ear normal. Nose: Nose normal. Mouth/Throat: Mouth: Mucous membranes are moist. Eyes: Extraocular Movements: Extraocular movements intact. Conjunctiva/sclera: Conjunctivae normal. Neck: Vascular: No carotid bruit. Cardiovascular: Rate and Rhythm: Normal rate and regular rhythm. Pulses: Normal pulses. Heart sounds: Normal heart sounds. No murmur heard. Pulmonary: Effort: Pulmonary effort is normal. Breath sounds: Normal breath sounds. No wheezing or rhonchi. Abdominal: General: Bowel sounds are normal. There is no distension. Palpations: Abdomen is soft. There is no mass. Tenderness: There is no abdominal tenderness. Musculoskeletal: General: Normal range of motion. Cervical back: Normal range of motion and neck supple. Right lower leg: No edema. Left lower leg: No edema. Lymphadenopathy: Cervical: No cervical adenopathy. Skin: General: Skin is warm and dry. Capillary Refill: Capillary refill takes 2 to 3 seconds. Findings: No rash. Neurological: General: No focal deficit present. Mental Status: She is alert and oriented to person, place, and time. Psychiatric: Mood and Affect: Mood normal. Behavior: Behavior normal. Thought Content: Thought content normal. Judgment: Judgment normal. ASSESSMENT AND PLAN: No follow-ups on file. Problem List Items Addressed This Visit Primary hypertension - Primary Please check blood pressure daily and record DASH diet Limit caffeine Take medication as directed Contact office if chest pain, pressure, dizziness, shortness of breath, swelling legs Recommend slow position changes Current meds: losartan Relevant Medications losartan (Cozaar) 100 MG tablet Migraine without aura and without status migrainosus, not intractable Relevant Medications topiramate (Topamax) 100 MG tablet Chronic kidney disease, stage 3b (CMS-HCC) Follows with Nephrology Recommend tight blood pressure control Limit nephrotoxic drugs 08/07: cr 1.69 RESOLVED: Class 1 obesity due to excess calories with serious comorbidity in adult Discussed with patient their BMI (actual, verses recommended). We have also discussed lifestyle modifications: attempts to perform physical activity as chronic conditions allow, also to monitor dietary intake: increasing protein/fruits/veggies and lowering carb intake (unless contraindicated). Limit sodas, juices, and sugary drinks. Cigarette nicotine dependence without complication The patient has been advised of the risks of continued smoking: stroke, RI, all forms of cancer, lung disease, and . Options for quitting smoking include: cold turkey, hypnosis, acupuncture, nicotine replacement meds(gum, lozenges, and patches), Buproprion, and Varenicline. At this time pt is encouraged to evaluate their goals for wanting to quit smoking, and reach out toprovider when ready to start this process Is doing well w candida Dave in 2 months Relevant Medications varenicline (Chantix) 1 MG tablet Overweight (BMI 25.0-29.9) Has lost about 35 pounds since 03/06 Has made dietary changes as well Other Visit Diagnoses Bipolar 2 disorder (HCC) Relevant Medications topiramate (Topamax) 100 MG tablet * Margarette Estevez NP - 02/21/2025 7:01 AM EDTAssociated Problem(s): Cigarette nicotine dependence without complication The patient has been advised of the risks of continued smoking: stroke, RI, all forms of cancer, lung disease, and . Options for quitting smoking include: cold turkey, hypnosis, acupuncture, nicotine replacement meds(gum, lozenges, and patches), Buproprion, and Varenicline. At this time pt is encouraged to evaluate their goals for wanting to quit smoking, and reach out toprovider when ready to start this process Is doing well w candida Fu in 2 months * Margarette Estevez NP - 02/21/2025 7:00 AM EDTAssociated Problem(s): Class 1 obesity due to excess calories with serious comorbidity in adult (Resolved 02/21/2025) Discussed with patient their BMI (actual, verses recommended). We have also discussed lifestyle modifications: attempts to perform physical activity as chronic conditions allow, also to monitor dietary intake: increasing protein/fruits/veggies and lowering carb intake (unless contraindicated). Limit sodas, juices, and sugary drinks. * Margarette Estevez NP - 02/21/2025 7:00 AM EDTAssociated Problem(s): Chronic kidney disease, stage 3b ([facility]) Follows with Nephrology Recommend tight blood pressure control Limit nephrotoxic drugs 08/07: cr 1.69 * Margarette Estevez NP - 02/21/2025 6:59 AM EDTAssociated Problem(s): Primary hypertension Please check blood pressure daily and record DASH diet Limit caffeine Take medication as directed Contact office if chest pain, pressure, dizziness, shortness of breath, swelling legs Recommend slow position changes Current meds: losartan documented in this [facility]08-11-2025 Instructions* Patient Instructions* Margarette Estevez NP - 02/21/2025 6:00 PM EDT Keep up the great work documented in this [facility]08-11-2025 Evaluation note* Diagnosis Primary hypertension- Primary Unspecified essential hypertension Stage 3a chronic kidney disease ([facility]) Migraine without aura and without status migrainosus, not intractable Tobacco dependency Tobacco use disorder Primary hypertension- Primary Unspecified essential hypertension Stage 3a chronic kidney disease (CMS-HCC) Abnormal renal ultrasound Primary hypertension- Primary Unspecified essential hypertension Stage 3a chronic kidney disease (CMS-HCC) Tobacco dependency Tobacco use disorder Bipolar 2 disorder (HCC) Other bipolar disorders Allergic reaction to bee sting Screening for hyperlipidemia- Primary Screening for lipoid disorders Screening for diabetes mellitus Primary hypertension Unspecified essential hypertension Tobacco dependency Tobacco use disorder Class 1 obesity due to excess calories without serious comorbidity with body mass index (BMI) of 33.0 to 33.9 in adult Primary hypertension- Primary Unspecified essential hypertension Stage 3a chronic kidney disease (CMS-HCC) Class 1 obesity due to excess calories without serious comorbidity with body mass index (BMI) of 33.0 to 33.9 in adult Tobacco dependency Tobacco use disorder Bipolar 2 disorder (HCC) Other bipolar disorders Primary hypertension- Primary Unspecified essential hypertension Stage 3a chronic kidney disease (CMS-HCC) Class 1 obesity due to excess calories without serious comorbidity with body mass index (BMI) of 33.0 to 33.9 in adult Screening for hyperlipidemia Screening for lipoid disorders Tobacco dependency Tobacco use disorder Bipolar 2 disorder (HCC) Other bipolar disorders Migraine without aura and without status migrainosus, not intractable Back spasm Other symptoms referable to back Primary hypertension- Primary Unspecified essential hypertension Bipolar II disorder (HCC) Other bipolar disorders Chronic kidney disease, stage 3b ([facility]-HCC) Class 1 obesity due to excess calories with serious comorbidity in adult, unspecified BMI Anxiety Anxiety state, unspecified Migraine without aura and without status migrainosus, not intractable Cigarette nicotine dependence without complication Allergy to nuts (other than peanuts) Allergy to other foods Mixed hyperlipidemia Mixed hyperlipidemia Encounter for screening for lung cancer Back spasm Other symptoms referable to back Bipolar 2 disorder (HCC) Other bipolar disorders Primary hypertension- Primary Unspecified essential hypertension Chronic kidney disease, stage 3b (CMS-HCC) Class 1 obesity due to excess calories with serious comorbidity in adult, unspecified BMI Anxiety Anxiety state, unspecified Bipolar II disorder (HCC) Other bipolar disorders Cigarette nicotine dependence without complication Migraine without aura and without status migrainosus, not intractable Bipolar 2 disorder (HCC) Other bipolar disorders Primary hypertension- Primary Unspecified essential hypertension Chronic kidney disease, stage 3b ([facility]-HCC) Class 1 obesity due to excess calories with serious comorbidity in adult, unspecified BMI Cigarette nicotine dependence without complication Migraine without aura and without status migrainosus, not intractable Bipolar 2 disorder (HCC) Other bipolar disorders Overweight (BMI 25.0-29.9) Overweight Bipolar II disorder (HCC) Other bipolar disorders documented in this encounter [id number]* Diagnosis Primary hypertension- Primary Unspecified essential hypertension Stage 3a chronic kidney disease (CMS-HCC) Migraine without aura and without status migrainosus, not intractable Tobacco dependency Tobacco use disorder Primary hypertension- Primary Unspecified essential hypertension Stage 3a chronic kidney disease (CMS-HCC) Abnormal renal ultrasound Primary hypertension- Primary Unspecified essential hypertension Stage 3a chronic kidney disease (CMS-HCC) Tobacco dependency Tobacco use disorder Bipolar 2 disorder (HCC) Other bipolar disorders Allergic reaction to bee sting Screening for hyperlipidemia- Primary Screening for lipoid disorders Screening for diabetes mellitus Primary hypertension Unspecified essential hypertension Tobacco dependency Tobacco use disorder Class 1 obesity due to excess calories without serious comorbidity with body mass index (BMI) of 33.0 to 33.9 in adult Primary hypertension- Primary Unspecified essential hypertension Stage 3a chronic kidney disease (CMS-HCC) Class 1 obesity due to excess calories without serious comorbidity with body mass index (BMI) of 33.0 to 33.9 in adult Tobacco dependency Tobacco use disorder Bipolar 2 disorder (HCC) Other bipolar disorders Primary hypertension- Primary Unspecified essential hypertension Stage 3a chronic kidney disease (CMS-HCC) Class 1 obesity due to excess calories without serious comorbidity with body mass index (BMI) of 33.0 to 33.9 in adult Screening for hyperlipidemia Screening for lipoid disorders Tobacco dependency Tobacco use disorder Bipolar 2 disorder (HCC) Other bipolar disorders Migraine without aura and without status migrainosus, not intractable Back spasm Other symptoms referable to back Primary hypertension- Primary Unspecified essential hypertension Bipolar II disorder (HCC) Other bipolar disorders Chronic kidney disease, stage 3b (CMS-HCC) Class 1 obesity due to excess calories with serious comorbidity in adult, unspecified BMI Anxiety Anxiety state, unspecified Migraine without aura and without status migrainosus, not intractable Cigarette nicotine dependence without complication Allergy to nuts (other than peanuts) Allergy to other foods Mixed hyperlipidemia Mixed hyperlipidemia Encounter for screening for lung cancer Back spasm Other symptoms referable to back Bipolar 2 disorder (HCC) Other bipolar disorders Primary hypertension- Primary Unspecified essential hypertension Chronic kidney disease, stage 3b (CMS-HCC) Class 1 obesity due to excess calories with serious comorbidity in adult, unspecified BMI Anxiety Anxiety state, unspecified Bipolar II disorder (HCC) Other bipolar disorders Cigarette nicotine dependence without complication Migraine without aura and without status migrainosus, not intractable Bipolar 2 disorder (HCC) Other bipolar disorders Cigarette nicotine dependence without complication documented in this encounter [id number]* Diagnosis Primary hypertension- Primary Unspecified essential hypertension Stage 3a chronic kidney disease (CMS-HCC) Migraine without aura and without status migrainosus, not intractable Tobacco dependency Tobacco use disorder Primary hypertension- Primary Unspecified essential hypertension Stage 3a chronic kidney disease (CMS-HCC) Abnormal renal ultrasound Primary hypertension- Primary Unspecified essential hypertension Stage 3a chronic kidney disease (CMS-HCC) Tobacco dependency Tobacco use disorder Bipolar 2 disorder (HCC) Other bipolar disorders Allergic reaction to bee sting Screening for hyperlipidemia- Primary Screening for lipoid disorders Screening for diabetes mellitus Primary hypertension Unspecified essential hypertension Tobacco dependency Tobacco use disorder Class 1 obesity due to excess calories without serious comorbidity with body mass index (BMI) of 33.0 to 33.9 in adult Primary hypertension- Primary Unspecified essential hypertension Stage 3a chronic kidney disease (CMS-HCC) Class 1 obesity due to excess calories without serious comorbidity with body mass index (BMI) of 33.0 to 33.9 in adult Tobacco dependency Tobacco use disorder Bipolar 2 disorder (HCC) Other bipolar disorders Primary hypertension- Primary Unspecified essential hypertension Stage 3a chronic kidney disease ([facility]-HCC) Class 1 obesity due to excess calories without serious comorbidity with body mass index (BMI) of 33.0 to 33.9 in adult Screening for hyperlipidemia Screening for lipoid disorders Tobacco dependency Tobacco use disorder Bipolar 2 disorder (HCC) Other bipolar disorders Migraine without aura and without status migrainosus, not intractable Back spasm Other symptoms referable to back Primary hypertension- Primary Unspecified essential hypertension Bipolar II disorder (HCC) Other bipolar disorders Chronic kidney disease, stage 3b (CMS-HCC) Class 1 obesity due to excess calories with serious comorbidity in adult, unspecified BMI Anxiety Anxiety state, unspecified Migraine without aura and without status migrainosus, not intractable Cigarette nicotine dependence without complication Allergy to nuts (other than peanuts) Allergy to other foods Mixed hyperlipidemia Mixed hyperlipidemia Encounter for screening for lung cancer Back spasm Other symptoms referable to back Bipolar 2 disorder (HCC) Other bipolar disorders Primary hypertension- Primary Unspecified essential hypertension Chronic kidney disease, stage 3b (CMS-HCC) Class 1 obesity due to excess calories with serious comorbidity in adult, unspecified BMI Anxiety Anxiety state, unspecified Bipolar II disorder (HCC) Other bipolar disorders Cigarette nicotine dependence without complication Migraine without aura and without status migrainosus, not intractable Bipolar 2 disorder (HCC) Other bipolar disorders Nausea and vomiting, unspecified vomiting type- Primary documented in this encounter [id number] History of Present illness Narrative* ALEJANDRO EVANGELISTA - 12/22/2024 6:00 PM EDT Pt has gotten the okay from her counselor and supervising deputy to allow her to go on chantix She would like to get off of cyclobenzaprine 10mg does not feel like it is helping therefore she ended up not taking it does not need a replacement Pt has been doing exercises and stretches before bed that seems to help she states that if it becomes worse she will let her pcp know * Margarette Estevez NP - 12/22/2024 6:00 PM EDT Images from the original note were not included. Millicent Roman is a 59 y.o. female presents with chief complaint of Hypertension HPI: Would like to start chanitx : psych said ok to trial Hypertension This is a chronic problem. The current episode started more than 1 year ago. The problem is unchanged. The problem is controlled. Pertinent negatives include no chest pain, headaches, neck pain, palpitations, peripheral edema or shortness of breath. There are no associated agents to hypertension. Risk factors for coronary artery disease include smoking/tobacco exposure. Past treatments include angiotensin blockers. The current treatment provides moderate improvement. There are no compliance problems. SUBJECTIVE: MEDICATIONS: Current Outpatient Medications Medication Instructions alendronate-cholecalciferol (Fosamax Plus D) 70-5600 MG-UNIT tablet 1 tablet, Oral, Every 7 days, Take in the morning with a full glass of water, on an empty stomach, and do not take anything else bymouth or lie down for the next 30 min. EPINEPHrine (EPIPEN) 0.3 mg, Injection, Once, use as directed for allergic reaction and then call 911 estradiol (ESTRACE) 1 mg, Oral, Daily losartan (COZAAR) 100 mg, Oral, Daily magnesium oxide (MAG-OX) 400 mg, Daily nicotine (Nicoderm, Step 3) 7 MG/24HR patch 1 patch, Transdermal, Every 24 hours omeprazole (PRILOSEC) 20 mg, Daily before breakfast paliperidone (INVEGA) 3 mg, Every morning topiramate (TOPAMAX) 100 mg, Oral, Daily traZODone (DESYREL) 200 mg, Nightly varenicline (CHANTIX) 1 mg, Oral, 2 times daily, Take with full glass of water. Varenicline Tartrate, Starter, 0.5 MG X 11 & 1 MG X 42 tablet therapy pack 1 Package, Oral, Daily, Use as directed ALLERGIES: Allergies Allergen Reactions Other Hives, Shortness of breath and Swelling Especially black walnuts Bactrim [Sulfamethoxazole-Trimethoprim] Bee Pollen Bee Venom Hives Black [place] Flavoring Agent (Non-Screening) Walnuts Ciprofloxacin Hives Codeine Depakote [Valproic Acid] Dilaudid [Hydromorphone] E.E.S. [Erythromycin] Hydrocodone-Acetaminophen Lyrica [Pregabalin] Phenergan [Promethazine] Sulfamethoxazole Hives REVIEW OF SYMPTOMS: Review of Systems Constitutional: Negative for appetite change, chills and fever. HENT: Negative for congestion, ear pain and sore throat. Eyes: Negative for pain, discharge, redness and visual disturbance. Respiratory: Positive for cough and wheezing. Negative for shortness of breath. Cardiovascular: Negative for chest pain, palpitations and leg swelling. Gastrointestinal: Negative for abdominal pain, blood in stool, constipation, diarrhea, nausea and vomiting. Genitourinary: Negative for difficulty urinating, dysuria and frequency. Musculoskeletal: Negative for arthralgias, back pain, joint swelling, myalgias and neck pain. Skin: Negative for rash and wound. Neurological: Negative for dizziness, tremors, seizures, syncope and headaches. Psychiatric/Behavioral: Negative for behavioral problems, self-injury and suicidal ideas. The patient is nervous/anxious. Depression Hematological: Does not bruise/bleed easily. Endocrine: Negative for polydipsia, polyphagia and polyuria. Allergic/Immunologic: Negative for environmental allergies and food allergies. PAST MEDICAL HISTORY Past Medical History: Diagnosis Date Abnormal foot pulse Anxiety and depression Arthritis Atypical migraine Back problem Back spasm Blood pressure elevated without history of HTN Depression with anxiety Dry mouth Elevated serum creatinine History of IBS Hormone replacement therapy (postmenopausal) Irritable bowel syndrome with diarrhea Irritable bowel syndrome with diarrhea Kidney disease Migraine headache Migraines Multiple sclerosis (HCC) Multiple sclerosis (HCC) Onychomycosis PTSD (post-traumatic stress disorder) Stomach problems Urinary frequency Vision impairment Past Surgical History: Procedure Laterality Date APPENDECTOMY 11/13/2010 CHOLECYSTECTOMY 02/24/2023 COLONOSCOPY 2020 HYSTERECTOMY 2020 TONSILLECTOMY family history includes Cancer in her mother; Coronary artery disease in her father and mother; Hypertension in her father and mother; Kidney disease in her mother; Stroke in her father. OBJECTIVE: Visit Vitals BP 100/60 (BP Location: Right arm, Patient Position: Sitting, BP Cuff Size: Adult long) Pulse 63 Temp 98.5 F (Temporal) Resp 18 Wt 179 lb 12.8 oz SpO2 99% BMI 29.02 kg/m OB Status No Periods Smoking Status Every Day BSA 1.95 m Physical Exam Vitals and nursing note reviewed. Constitutional: General: She is not in acute distress. Appearance: Normal appearance. HENT: Head: Normocephalic and atraumatic. Right Ear: External ear normal. Left Ear: External ear normal. Nose: Nose normal. Mouth/Throat: Mouth: Mucous membranes are moist. Eyes: Extraocular Movements: Extraocular movements intact. Conjunctiva/sclera: Conjunctivae normal. Cardiovascular: Rate and Rhythm: Normal rate and regular rhythm. Pulses: Normal pulses. Heart sounds: Normal heart sounds. Pulmonary: Effort: Pulmonary effort is normal. Breath sounds: Wheezing (exp) present. Abdominal: General: Bowel sounds are normal. There is no distension. Palpations: Abdomen is soft. There is no mass. Tenderness: There is no abdominal tenderness. Musculoskeletal: General: Normal range of motion. Cervical back: Normal range of motion and neck supple. Right lower leg: No edema. Left lower leg: No edema. Lymphadenopathy: Cervical: No cervical adenopathy. Skin: General: Skin is warm and dry. Capillary Refill: Capillary refill takes 2 to 3 seconds. Findings: No rash. Neurological: General: No focal deficit present. Mental Status: She is alert and oriented to person, place, and time. Psychiatric: Mood and Affect: Mood normal. Behavior: Behavior normal. Thought Content: Thought content normal. Judgment: Judgment normal. ASSESSMENT AND PLAN: Follow up in about 2 months (around 02/21/2025) for Recheck. Problem List Items Addressed This Visit Primary hypertension - Primary Please check blood pressure daily and record DASH diet Limit caffeine Take medication as directed Contact office if chest pain, pressure, dizziness, shortness of breath, swelling legs Recommend slow position changes Current meds: losartan Relevant Medications losartan (Cozaar) 100 MG tablet Migraine without aura and without status migrainosus, not intractable Relevant Medications topiramate (Topamax) 100 MG tablet Anxiety Follow w psych Bipolar II disorder (HCC) Follow with pscyh Chronic kidney disease, stage 3b (HCC) (CMS/HCC) Follows with Nephrology Recommend tight blood pressure control Limit nephrotoxic drugs 08/07: cr 1.69 Class 1 obesity due to excess calories with serious comorbidity in adult Discussed with patient their BMI (actual, verses recommended). We have also discussed lifestyle modifications: attempts to perform physical activity as chronic conditions allow, also to monitor dietary intake: increasing protein/fruits/veggies and lowering carb intake (unless contraindicated). Limit sodas, juices, and sugary drinks. Cigarette nicotine dependence without complication The patient has been advised of the risks of continued smoking: stroke, RI, all forms of cancer, lung disease, and . Options for quitting smoking include: cold turkey, hypnosis, acupuncture, nicotine replacement meds(gum, lozenges, and patches), Buproprion, and Varenicline. At this time pt is encouraged to evaluate their goals for wanting to quit smoking, and reach out toprovider when ready to start this process Has been prescribed patches in the past not helping Would like to start chantix Discussed how it works, as well as different quit approaches Side effects to monitor for Relevant Medications Varenicline Tartrate, Starter, 0.5 MG X 11 & 1 MG X 42 tablet therapy pack varenicline (Chantix) 1 MG tablet Other Visit Diagnoses Bipolar 2 disorder (HCC) Relevant Medications topiramate (Topamax) 100 MG tablet * Margarette Estevez NP - 12/22/2024 7:47 AM EDTAssociated Problem(s): Colon cancer screening Colon cancer screening options were discussed with patient, as well as why colon cancer screening is indicated. Options are Colonoscopy: direct visualization, every 10 years (unless indicated more frequently), risks and benefits were discussed Cologuard: every 3 years, risks and benefits were discussed , contraindications were discussed (family hx of colon cancer, colon polyps) Patient has elected to: * Margarette Estevez NP - 12/22/2024 7:46 AM EDTAssociated Problem(s): Cigarette nicotine dependence without complication The patient has been advised of the risks of continued smoking: stroke, RI, all forms of cancer, lung disease, and . Options for quitting smoking include: cold turkey, hypnosis, acupuncture, nicotine replacement meds(gum, lozenges, and patches), Buproprion, and Varenicline. At this time pt is encouraged to evaluate their goals for wanting to quit smoking, and reach out toprovider when ready to start this process Has been prescribed patches in the past not helping Would like to start chantix Discussed how it works, as well as different quit approaches Side effects to monitor for * Margarette Estevez NP - 12/22/2024 7:46 AM EDTAssociated Problem(s): Bipolar II disorder (HCC) Follow with pscyh * Margarette Estevez NP - 12/22/2024 7:46 AM EDTAssociated Problem(s): Anxiety Follow w psych * Margarette Estevez NP - 12/22/2024 7:46 AM EDTAssociated Problem(s): Class 1 obesity due to excess calories with serious comorbidity in adult Discussed with patient their BMI (actual, verses recommended). We have also discussed lifestyle modifications: attempts to perform physical activity as chronic conditions allow, also to monitor dietary intake: increasing protein/fruits/veggies and lowering carb intake (unless contraindicated). Limit sodas, juices, and sugary drinks. * Margarette Estevez NP - 12/22/2024 7:45 AM EDTAssociated Problem(s): Chronic kidney disease, stage 3b (HCC) ([facility]/HCC) Follows with Nephrology Recommend tight blood pressure control Limit nephrotoxic drugs 08/07: cr 1.69 * Margarette Estevez NP - 12/22/2024 7:45 AM EDTAssociated Problem(s): Primary hypertension Please check blood pressure daily and record DASH diet Limit caffeine Take medication as directed Contact office if chest pain, pressure, dizziness, shortness of breath, swelling legs Recommend slow position changes Current meds: losartan documented in this [facility]06-11-2025 Instructions* Patient Instructions* Margarette Estevez NP - 12/22/2024 6:00 PM EDT Start chantix Take medication only as directed. This medication will take approximately 4-6 weeks to become effective. If any suicidal thoughts, thoughts of hurting others, or hallucinations contact the office or proceed to the Emergency Room for mental health evaluation. Medication may cause dry mouth, nausea, and in some cases worsening in depression symptoms. Please contact the office if these occur. documented in this [facility]06-11-2025 Evaluation note* Diagnosis Primary hypertension- Primary Unspecified essential hypertension Stage 3a chronic kidney disease (HCC) ([facility]) Migraine without aura and without status migrainosus, not intractable Tobacco dependency Tobacco use disorder Primary hypertension- Primary Unspecified essential hypertension Stage 3a chronic kidney disease (HCC) ([facility]/HCC) Abnormal renal ultrasound Primary hypertension- Primary Unspecified essential hypertension Stage 3a chronic kidney disease (HCC) ([facility]/HCC) Tobacco dependency Tobacco use disorder Bipolar 2 disorder (HCC) Other bipolar disorders Allergic reaction to bee sting Screening for hyperlipidemia- Primary Screening for lipoid disorders Screening for diabetes mellitus Primary hypertension Unspecified essential hypertension Tobacco dependency Tobacco use disorder Class 1 obesity due to excess calories without serious comorbidity with body mass index (BMI) of 33.0 to 33.9 in adult Primary hypertension- Primary Unspecified essential hypertension Stage 3a chronic kidney disease (HCC) (CMS/HCC) Class 1 obesity due to excess calories without serious comorbidity with body mass index (BMI) of 33.0 to 33.9 in adult Tobacco dependency Tobacco use disorder Bipolar 2 disorder (HCC) Other bipolar disorders Primary hypertension- Primary Unspecified essential hypertension Stage 3a chronic kidney disease (HCC) ([facility]) Class 1 obesity due to excess calories without serious comorbidity with body mass index (BMI) of 33.0 to 33.9 in adult Screening for hyperlipidemia Screening for lipoid disorders Tobacco dependency Tobacco use disorder Bipolar 2 disorder (HCC) Other bipolar disorders Migraine without aura and without status migrainosus, not intractable Back spasm Other symptoms referable to back Primary hypertension- Primary Unspecified essential hypertension Bipolar II disorder (HCC) Other bipolar disorders Chronic kidney disease, stage 3b (HCC) (CMS/HCC) Class 1 obesity due to excess calories with serious comorbidity in adult, unspecified BMI Anxiety Anxiety state, unspecified Migraine without aura and without status migrainosus, not intractable Cigarette nicotine dependence without complication Allergy to nuts (other than peanuts) Allergy to other foods Mixed hyperlipidemia Mixed hyperlipidemia Encounter for screening for lung cancer Back spasm Other symptoms referable to back Bipolar 2 disorder (HCC) Other bipolar disorders Primary hypertension- Primary Unspecified essential hypertension Chronic kidney disease, stage 3b (HCC) (CMS/HCC) Class 1 obesity due to excess calories with serious comorbidity in adult, unspecified BMI Anxiety Anxiety state, unspecified Bipolar II disorder (HCC) Other bipolar disorders Cigarette nicotine dependence without complication Migraine without aura and without status migrainosus, not intractable Bipolar 2 disorder (HCC) Other bipolar disorders documented in this encounter [id number] History of Present illness Narrative* Margarette Estevez NP - 09/22/2024 5:53 PM EDTAssociated Problem(s): Encounter for screening for lung cancer [...] importance of smoking cessation. Declines CT scan * ALEJANDRO EVANGLEISTA - 09/22/2024 3:20 PM EDT Pt states that they never got her fosamax approved she is still waiting on [place]. Pt is needing refills on the trazadone and losartan, and flexeril * Margarette Estevez NP - 09/22/2024 7:39 AM EDTAssociated Problem(s): Mixed hyperlipidemia (CMS/HCC) No statin therapy * Margarette Estevez NP - 09/22/2024 7:37 AM EDTAssociated Problem(s): Colon cancer screening Colon cancer screening options were discussed with patient, as well as why colon cancer screening is indicated. Options are Colonoscopy: direct visualization, every 10 years (unless indicated more frequently), risks and benefits were discussed Cologuard: every 3 years, risks and benefits were discussed , contraindications were discussed (family hx of colon cancer, colon polyps) Patient has elected to: * Margarette Estevez NP - 09/22/2024 7:36 AM EDTAssociated Problem(s): Allergy to nuts (other than peanuts) Uses epi pen when needed * Margarette Estevez NP - 09/22/2024 7:36 AM EDTAssociated Problem(s): Cigarette nicotine dependence without complication The patient has been advised of the risks of continued smoking: stroke, RI, all forms of cancer, lung disease, and . Options for quitting smoking include: cold turkey, hypnosis, acupuncture, nicotine replacement meds(gum, lozenges, and patches), Buproprion, and Varenicline. At this time pt is encouraged to evaluate their goals for wanting to quit smoking, and reach out toprovider when ready to start this process Has been prescribed patches in the past not helping * Margarette Estevez NP - 09/22/2024 7:35 AM EDTAssociated Problem(s): Migraine without aura and without status [...] I will change script to reflect this * Margarette Estevez NP - 09/22/2024 7:35 AM EDTAssociated Problem(s): Bipolar II disorder (CMS/HCC) Follow with pscyh * Margarette Estevez NP - 09/22/2024 7:35 AM EDTAssociated Problem(s): Anxiety Follow w psych * Margarette Estevez NP - 09/22/2024 7:34 AM EDTAssociated Problem(s): Class 1 obesity due to excess calories with serious comorbidity in adult Discussed with patient their BMI (actual, verses recommended). We have also discussed lifestyle modifications: attempts to perform physical activity as chronic conditions allow, also to monitor dietary intake: increasing protein/fruits/veggies and lowering carb intake (unless contraindicated). Limit sodas, juices, and sugary drinks. * Margarette Estevez NP - 09/22/2024 7:33 AM EDTAssociated Problem(s): Chronic kidney disease, stage 3b (HCC) (CMS/HCC) Follows with Nephrology Recommend tight blood pressure control Limit nephrotoxic drugs 08/07: cr 1.69 * Margarette Estevez NP - 09/22/2024 7:32 AM EDTAssociated Problem(s): Primary hypertension (CMS/HCC) Please check blood pressure daily and record DASH diet Limit caffeine Take medication as directed Contact office if chest pain, pressure, dizziness, shortness of breath, swelling legs Recommend slow position changes Current meds: losartan documented in this [facility]03-12-2025 Instructions* Patient Instructions* Margarette Estevez NP - 09/22/2024 3:20 PM EDT No medication changes documented in this [facility]03-12-2025 Evaluation note* Diagnosis Primary hypertension (CMS/HCC)- Primary [...] Other bipolar disorders documented in this encounter [id number] History of Present illness Narrative* Rosita Garza NP - 06/23/2024 5:14 PM ESTAssociated Problem(s): Tobacco dependency Reordered nicotine patches. Smoking cessation counseling provided. * Rosita aGrza NP - 06/23/2024 5:11 PM ESTAssociated Problem(s): [...] were not included. Subjective Patient ID: Millicent Roman is a 58 y.o. female who [...] Visit Stage 3a chronic kidney disease (HCC) ([facility]) Follows closely with Nephrology. Avoid NSAIDS, Nephrotoxic agents. Most recent creatinine 1.60 eGFR: 33 Primary hypertension (CMS/HCC) - Primary Currently taking [...] aura and without status migrainosus, not intractable ([facility]) Relevant Medications topiramate (Topamax) 100 MG tablet Tobacco dependency Reordered nicotine patches. Smoking cessation counseling provided. Relevant Medications nicotine (Nicoderm CQ) 21 MG/24HR patch nicotine (Nicoderm CQ) 14 MG/24HR patch nicotine (Nicoderm, Step 3) 7 MG/24HR patch Bipolar 2 disorder ([facility]) Relevant Medications topiramate (Topamax) 100 MG tablet [...] (Flexeril) 10 MG tablet documented in this [id number] Telephone encounter Note* Telephone Encounter - SHENA Stubbs - 05/27/2024 3:10 PM EST Spoke with patient regarding dexa scan results. Patient wishes to start using fosamax weekly. We discussed how to take and issue or concerns regarding acid reflux. Patient would like to try and if necessary may need to change to IV infusion of prolia [id number] Miscellaneous Notes* Telephone Encounter - SHENA Stubbs - 05/27/2024 3:10 PM EST Spoke with patient regarding dexa scan results. Patient wishes to start using fosamax weekly. We discussed how to take and issue or concerns regarding acid reflux. Patient would like to try and if necessary may need to change to IV infusion of prolia documented in this [id number] History of Present illness Narrative* SHENA Stubbs - 04/28/2024 3:00 PM EDT Reason for Appointment: Patient ID: Millicent Roman is a 58 y.o. female who [...] [Sulfamethoxazole-Trimethoprim] Bee Pollen Bee Venom Hives Black [place] Flavor Walnuts Ciprofloxacin Hives Codeine Depakote [Valproic Acid] Dilaudid [Hydromorphone] E.E.S. [Erythromycin] Hydrocodone-Acetaminophen Lyrica [Pregabalin] Phenergan [Promethazine] Sulfamethoxazole Hives PROBLEMS Active Ambulatory Problems Diagnosis Date Noted Stage 3a chronic kidney disease (HCC) ([facility] 06/16/2023 Primary hypertension ([facility]) 06/16/2023 Migraine without aura and without status migrainosus, not intractable ([facility]) 06/16/2023 Tobacco dependency 06/16/2023 Anxiety 07/28/2021 Allergy to nuts (other than peanuts) 08/18/2023 Abnormal renal ultrasound 08/18/2023 Bipolar 2 disorder ([facility]) 11/17/2023 Screening for hyperlipidemia 02/12/2024 Screening for diabetes mellitus 02/12/2024 Class 1 obesity due to excess calories without serious comorbidity with body mass index (BMI) of 33.0 to 33.9 in adult 02/12/2024 Resolved Ambulatory Problems Diagnosis Date Noted No Resolved Ambulatory Problems Past Medical History: Diagnosis Date Abnormal foot pulse Anxiety and depression ([facility]) Arthritis Atypical migraine ([facility]) Back problem Back spasm Blood pressure elevated without history of HTN Depression with anxiety Dry mouth Elevated serum creatinine History of IBS Hormone replacement therapy (postmenopausal) Irritable bowel syndrome with diarrhea Irritable bowel syndrome with diarrhea Kidney disease Migraine headache ([facility]) Migraines ([facility]) Multiple sclerosis ([facility]) Multiple sclerosis ([facility]) Onychomycosis PTSD (post-traumatic stress disorder) ([facility]) Stomach problems Urinary frequency Vision impairment HISTORY PAST MEDICAL HISTORY SOCIAL HISTORY Past Medical History: Diagnosis Date Abnormal foot pulse Anxiety and depression ([facility]) Arthritis Atypical migraine ([facility]) Back problem Back spasm Blood pressure elevated without history of HTN Depression with anxiety Dry mouth Elevated serum creatinine History of IBS Hormone replacement therapy (postmenopausal) Irritable bowel syndrome with diarrhea Irritable bowel syndrome with diarrhea Kidney disease Migraine headache ([facility]) Migraines ([facility]) Multiple sclerosis ([facility]) Multiple sclerosis ([facility]) Onychomycosis PTSD (post-traumatic stress disorder) (CMS/HCC) Stomach [...] nursing note reviewed. Exam conducted with a baller tender present. Vitals: Estimated body mass index is 31.13 kg/m as calculated from the following: Height as of 24: 5' 6.5 . Weight as of this [...] behalf of: SHENA Stubbs documented in this [id number] History of Present illness Narrative* Rosita Garza NP - 03/24/2024 5:43 PM EDTAssociated Problem(s): Class [...] EDTAssociated Problem(s): Bipolar 2 disorder (CMS/HCC) Follows [facility] in [place]. Mood is stable, denies depressive symptoms. On topamax, invega and trazodone. * Rosita Garza NP - 03/24/2024 5:42 PM EDTAssociated Problem(s): Tobacco dependency Using nicotine patches. States it is working ok . Will add lozenges PRN. * Rosita Garza NP - 03/24/2024 5:39 PM EDTAssociated Problem(s): Primary hypertension ([facility]) Currently taking losartan 100mg Checks BP at home; Averages are 120's/80's; Denies orthostatic changes, dizziness, cough, shortness of breath, swelling in extremities. Continue current regimen. Given BP log, advised pt to record BP and bring log back with them to next visit. * Rosita Garza NP - 03/24/2024 5:00 PM EDT Images from the original note were not included. Subjective Patient ID: Millicent Roman is a 58 y.o. female who [...] lozenge Bipolar 2 disorder (CMS/HCC) Follows in [place]. Mood is stable, denies depressive symptoms. On [...] options for weight loss. documented in this [id number] Instructions* Patient Instructions* Rosita Garza NP - [...] of vigorous aerobic activity documented in this [id number] Evaluation note* Encounter Date Diagnosis Assessment Notes Treatment Notes Treatment Clinical Notes Jan, GERD (gastroesophageal reflux disease) (ICD-10 - K21.9) [facility] Other 07-07-2022 Evaluation note* Encounter Date Diagnosis Assessment Notes Treatment Notes Treatment Clinical Notes Jan, Diarrhea (ICD-10 - R19.7) Continue Dicyclomine Jan, GERD (gastroesophageal reflux disease) (ICD-10 - K21.9) Continue Omeprazole without change [facility] Other 04-29-2022 Evaluation note* Encounter Date Diagnosis Assessment Notes Treatment Notes Treatment Clinical Notes Oct, GERD (gastroesophageal reflux disease) (ICD-10 - K21.9) [facility] Other 04-05-2022 Evaluation note* Encounter Date Diagnosis Assessment Notes Treatment Notes Treatment Clinical Notes Oct, Diarrhea, unspecified (ICD-10 - R19.7) CONTINUE DICYCLOMINE DIRECTED RTO 3 MONTHS Oct, GERD (gastroesophageal reflux disease) (ICD-10 - K21.9) STOP CARAFATE [facility] Other 12-30-2021 Evaluation note* Encounter Date Diagnosis [...] With Stitches: Care Instructions material was printed [facility] Other 12-22-2021 Evaluation note* Encounter Date Diagnosis [...] elevation therapy. Recommended that she continue with [id number]-ear-[id number] oral anti-inflammatories . Informed her that she [...] 4 weeks to check on her progress. [facility] Other 09-26-2014 History general Narrative - Reported* [...] Hospitalization History [facility] [place] [facility] Other 09-26-2014 History general Narrative - Reported* [...] Hospitalization History [facility] [place] [facility] Other Evaluation noteNo InformationNouniversity [facility] [place] Other Evaluation note* Diagnosis Onset Date Resolution Status Chronic kidney disease, stage 3b acute Hypertensive nephropathy acu te [place]ion of [place] kidney acute [facility] Work Phone: Evaluation note* Diagnosis Onset Date Resolution Status Chronic kidney disease, stage 3b acute Hypertensive nephropathy acu te Hypomagnesemia acute [place] kidney acute [facility] Work Phone: Evaluation note* Diagnosis Primary hypertension [...] Bipolar 2 disorder (CMS/HCC) Other bipolar disorders Osteopenia, unspecified location- Primary [...] hypertension Stage 3a chronic kidney disease (HCC) ([facility]CC) Migraine without aura and without status migrainosus, not intractable (CMS/HCC) Tobacco dependency Tobacco use disorder Primary hypertension ([facility]/HCC)- Primary Unspecified essential hypertension Stage 3a chronic kidney disease (HCC) (CMS/HCC) Abnormal renal ultrasound Primary hypertension ([facility]/HCC)- Primary Unspecified essential hypertension Stage 3a chronic kidney disease (HCC) ([facility]CC) Tobacco dependency Tobacco use disorder Bipolar 2 disorder ([facility]) Other bipolar disorders Allergic reaction to bee sting Screening for hyperlipidemia- Primary Screening for lipoid disorders Screening for diabetes mellitus Primary hypertension ([facility]/HCC) Unspecified essential hypertension Tobacco dependency Tobacco use disorder Class 1 obesity due to excess calories without serious comorbidity with body mass index (BMI) of 33.0 to 33.9 in adult Primary hypertension (CMS/HCC)- Primary Unspecified essential hypertension Stage 3a chronic kidney disease (HCC) ([facility]CC) Class 1 obesity due to excess calories without serious comorbidity with body mass index (BMI) of 33.0 to 33.9 in adult Tobacco dependency Tobacco use disorder Bipolar 2 disorder (CMS/HCC) Other bipolar disorders Primary hypertension (CMS/HCC)- Primary Unspecified essential hypertension Stage 3a chronic kidney disease (HCC) ([facility]/HCC) Class 1 obesity due to excess calories [...] acute August 172024 3:52pm [place] kidney acute August 17, 2024 3:52pm [facility] Work Phone: Evaluation note* Diagnosis Onset Date Resolution Status Admit Date Chronic kidney disease, stage 3b acu te December 21, 2024 3:51pm Cigarette smoker acute December 3:51pm Hypertensive nephropathy acute December 21, 2024 3:51pm Hypomagnesemia acute December 21, 2024 3:51pm [place] kidney acute December 21, 2024 3:51pm [facility] Work Phone: Evaluation note* Diagnosis Onset Date Resolution Status Admit Date Asthma acute April 25, 2025 4:46pm Chronic kidney disease, stag e 3b acute April 25 4:46pm Essential hypertension acute Oc tober 2024 4:46pm Former smoker acute April 4:46pm Migraine acute April 25, 2025 4:46pm [facility] Work Phone: Reason for referral (narrative)No reason for referral information availableKettering Health [facility] Work Phone: Summary Purpose Family History Relationship Condition Age [...] stage 3b Hypertensive nephropathy Lesion of [place] kidney Chief Complaint RENAL 3 MONTH F/U Reason for Visit Chronic kidney disea se, stage 3b Hypertensive nephropathy Hypomagnesemia [place] kidney Chief Complaint Admit Date July 29, 2024 3 :50pm RENAL 4 MONTH F/U August 17, 2024 3 :52pm Reason for Visit Admit Date Chronic kidney disease, stage 3b 2024 3:52pm Cigarette smoker August 17, 2024 3 :52pm Hypertensive nephropathy August 17, 2 025 3:52pm Hypomagnesemia August 17, 2024 3 :52pm [place] kidney August 3:52pm Chief Complaint Admit Date October 22, 2024 3:0 8pm RENAL 4 MONTHS December 21, 2024 3:51 pm Reason for Visit Admit Date Chronic kidney disease, stage 3b December 212024 3:51pm Cigarette smoker December 21, 2024 3:51 pm Hypertensive nephropathy December 21, 2024 3:51pm Hypomagnesemia December 21, 2024 3:51 pm [place] kidney December 21, 2024 3:51pm Chief Complaint Admit Date April 25, 2025 4 :46pm Reason for Visit Admit Date Asthma April 25, 2025 4 :46pm Chronic kidney disease, stage 3b April 25, 2025 4:46pm Essential hypertension April 25 4:46pm Former smoker April 25, 2025 4 :46pm Migraine April 25, 2025 4 :46pm Additional Source Comments INFORMATION SOURCE (unrecogn ized section and content) DATE CREATED AUTHOR 08/08/2021 [facility] DATE CREATED AUTHOR AUTHOR'S ORGANIZ ATION 08/17/2022 [facility] DATE CREATED AUTHOR AUTHOR'S ORGANIZ ATION 11/27/2022 [facility] DATE CREATED AUTHOR AUTHOR'S ORGANIZ ATION 02/23/2025 [facility] Special[facility] EPIC REASON FOR VISIT (unrecogniz ed section and content) Reason Comments Well Women Visit Reason Comments Follow-up Reason Comments Hypertension Reason Comments Med Refill Reason Comments Gynecologic Exam Care Teams (unrecognized sec tion and content) Station Detective Relationship Specialty Start Date End Date Shaikh Hernandes MD [address] [place] [address] PCP - General Internal Medicine 08/11/23 Margarette Estevez NP [address] [place] [address] Nurse Practitioner Family Medicine 05/26/23 Team Status: [...] 17, 2024 End: March 17, 2024 Debby Dominguze MD Attending Provider Active Star t: March 17, 2024 End: March 17, 2024 Station Detective Relationship Specialty Start Date End Date Shaikh Hernandes MD [address] [place] [phone] PCP - General Internal Medicine 08/11/23 Margarette Estevez NP [address] [place] [address] Nurse Practitioner Family Medicine 05/26/23 Station Detective Relationship Specialty Start Date End Date Shaikh Hernandes MD [address] [place] [address] PCP - General Internal Medicine 08/11/23 Margarette Estevez NP [address] [place] [address] Nurse Practitioner Family Medicine 05/26/23 Station Detective Relationship Specialty Start Date End Date Shaikh Hernandes MD [address] [place] [address] PCP - General Internal Medicine 08/11/23 Margarette Estevez NP [address] [place] [address] Nurse Practitioner Family Medicine 05/26/23 Station Detective Relationship Specialty Start Date End Date Shaikh Hernandes MD [address] [place] [address] PCP - General Internal Medicine 08/11/23 Shaikh Hernandes MD [address] [place] [address] PCP - [facility] 04/13/24 Margarette Estevez NP [address] [place] [address] Nurse Practitioner Family Medicine 05/26/23 Station Detective Relationship Specialty Start Date End Date Shaikh Hernandes MD [address] [place] [address] PCP - General Internal Medicine 08/11/23 Margarette Estevez NP [address] [place] [address] Nurse Practitioner Family Medicine 05/26/23 Station Detective Relationship Specialty Start Date End Date Shaikh Hernandes MD [address] [place] [address] PCP - General Internal Medicine 08/11/23 Shaikh Hernandes MD [address] [place] [address] PCP - [facility] 04/13/24 Margarette Estevez NP [address] [place] [address] Nurse Practitioner Family Medicine 05/26/23 Station Detective Relationship Specialty Start Date End Date Shaikh Hernandes MD [address] [place] [address] PCP - General Internal Medicine 08/11/23 Shaikh Hernandes MD [address] [place] [address] PCP - [facility] 04/13/24 Margarette Estevez NP [address] [place] [address] Nurse Practitioner Family Medicine 05/26/23 Station Detective Relationship Specialty Start Date End Date Shaikh Hernandes MD [address] [place] [address] PCP - General Internal Medicine 08/11/23 Margarette Estevez NP [address] [place] [address] Nurse Practitioner Family Medicine 05/26/23 Team Status: Active Member Role Status Dates Rosita Garza NP-C Primary Care Provider Ac tive Team Status: [...] August 17, 2024 End: August 17, 2024 Station Detective Relationship Specialty Start Date End Date Shaikh Hernandes MD [address] [place] [address] PCP - General Internal Medicine 08/11/23 Shaikh Hernandes MD [address] [place] [address] PCP - [facility] 04/13/24 Margarette Estevez NP [address] [place] [address] Nurse Practitioner Family Medicine 05/26/23 Station Detective Relationship Specialty Start Date End Date Shaikh Hernandes MD [address] [place] [address] PCP - General Internal Medicine 08/11/23 Shaikh Hernandes MD [address] [place] [address] PCP - [facility] 04/13/24 Margarette Estevez NP [address] [place] [address] Nurse Practitioner Family Medicine 05/26/23 Team Status: Active Member Role Status Dates Margarette Estevez Primary Care Provider Active Team Status: Active Member Role Status Dates Chinmay Manning MD Attending Provider Active Start: October 22, 2024 Team Status: Active Member Role Status Dates NANCY Malloy Primary Care Provider Ac tive Start: December 14, 2024 Debby Dominguez MD Attending Provider Active Star t: December 14, 2024 Team Status: Inactive Member Role Status Dates Debby Dominguez MD Attending Provider Active Star t: December 21, 2024 End: December 21, 2024 Margarette Estevez Primary Care Provider Active Sta rt: December 21, 2024 End: December 21, 2024 Station Detective Relationship Specialty Start Date End Date Shaikh Hernandes MD [address] [place] [address] PCP - General Internal Medicine 08/11/23 Margarette Estevez NP [address] [place] [address] Nurse Practitioner Family Medicine 05/26/23 Station Detective Relationship Specialty Start Date End Date Fawwad, Ruth, MD [address] [place] [address] PCP - General Internal Medicine 08/11/23 Margarette Estevez NP [address] [place] [address] Nurse Practitioner Family Medicine 05/26/23 Station Detective Relationship Specialty Start Date End Date Shaikh Hernandes MD [address] [place] [address] PCP - General Internal Medicine 08/11/23 Margarette Estevez NP [address] [place] [address] Nurse Practitioner Family Medicine 05/26/23 Station Detective Relationship Specialty Start Date End Date Shaikh Hernandes MD [address] [place] [address] PCP - General Internal Medicine 08/11/23 Margarette Estevez NP [address] [place] [address] Nurse Practitioner Family Medicine 05/26/23 Station Detective Relationship Specialty Start Date End Date Shaikh Hernandes MD [address] [place] [phone] PCP - General Internal Medicine 08/11/23 Margarette Estevez NP [address] [place] [address] Nurse Practitioner Family Medicine 05/26/23 Station Detective Relationship Specialty Start Date End Date Shaikh Hernandes MD [address] [place] [address] PCP - General Internal Medicine 08/11/23 Margarette Estevez NP [address] [place] [address] Nurse Practitioner Family Medicine 05/26/23 Team Status: Active Member Role Status Dates NANCY Chavira Primary Care Provider Active Team Status: Inactive Member Role Status Dates NANCY Chavira Primary Care Provider Active Start: April 25, 2025 End: April 25, 2025 NANCY Chavira Attending Provider Active Start: April 25, 2025 End: April 25, 2025 Station Detective Relationship Specialty Start Date End Date Madhu Murphy MD PCP - General Family Medicine 02/22/25 Margarette Estevez NP Nurse Practitioner Family Medicine 05/26/23 Station Detective Relationship Specialty Start Date End Date Madhu Murphy MD PCP - General Family Medicine 02/22/25 Margarette Estevez NP Nurse Practitioner Family Medicine 05/26/23 Goals (unrecognized [...] BE BASED ON THE PRIMARY CLINICAL RECORDS. [facility] [facility] provides no warranty or guarantee of the accuracy or completeness of information in this document.
== END 2025-05-02 19:52 | disposition home or self-care (01) ==
LOC: LAB 19:51
PROVIDERS: Visit Provider Physician Assistant
DX: Z01.419 Encounter for gynecological examination (general) (routine) without abnormal findings (principal); Z90.710 Acquired absence of both cervix and uterus
CPT/HCPCS: 87624; 88175

== ENCOUNTER 2025-05-20 11:15 | Outpatient (OUT) | payer BC, OTHER, SELFPAY ==
--- NOTE | 2025-05-20 11:17 | MM_ITS ---
Patient Name: ANIYAH LAY MR#: [id number] : 1965 Exam Date: 05/20/2025 Ordering Doctor: SHENA NAJERA . RADIOLOGY REPORT PROCEDURE: MM TOMOSYNTHESIS SCREENING BI COMPARISON: MM TOMOSYNTHESIS SCREENING BI, 05/14/2024. MG MAMM LT DIAG FU, 05/04/2019. MG MAMM ELEANOR SCRN W CAD DIG, 03/02/2013. INDICATIONS: Screening Calculator Name NCI Breast Cancer Risk Assessment Tool 5 Year Breast Cancer Risk 1.10% Lifetime Breast Cancer Risk 5.20% Personal Breast Cancer No Personal Ovarian Cancer No Treatments None Family Cancers Aunt-maternal with breast cancer at age 39; Aunt-paternal with breast cancer at age 50; Mother with uterine cancer at age 29. LOCATION: [facility] BREAST COMPOSITION: There are scattered areas of fibroglandular density. FINDINGS: DIAGNOSTIC CATEGORY 1--NEGATIVE. RIGHT BREAST: No significant suspicious finding. LEFT BREAST: No significant suspicious finding. RECOMMENDATIONS: ROUTINE MAMMOGRAM AND CLINICAL EVALUATION IN 12 MONTHS. Dictated by: Stone Cleveland MD on 05/20/2025 at 13:32 Approved by: Stone Cleveland MD on 05/20/2025 at 13:33
--- OUTSIDE RECORDS SUMMARY | 2025-05-20 11:18 | XMS_ITS | Encounter Summary ---
Author Organization [facility] Address [address] [place] [address] Care Team Providers Care Pie Baker Name Role Phone Margarette Estevez EMT INTERMEDIATE Unavailable [phone] Madhu Murphy MD Primary Care Provider Shaikh DENISE Hernandes Primary Care Provider Shaikh DENISE Hernandes Unavailable [phone] Madhu Murphy MD Primary Care Provider [phone] Encounter Details DateTypeDepartmentCare Team (Latest Contact Info)Txzjoeroved00/15/2023Clinisync Result Encounter [facility] Department Unsolicited Shaikh Hernandes MD [address] [facility] [place] [id number] Social History Tobacco UseTypesPacks/DayYears UsedDateSmoking Tobacco: Every DayCigarettes0.515 Smokeless Tobacco: NeverAlcohol UseStandard Drinks/WeekCommentsNever0 (1 standard drink = 0.6 oz pure alcohol)PHQ-2AnswerDate RecordedPatient Health Questionnaire-2 [id number] and Gender InformationValueDate RecordedSex Assigned at BirthNot on fileLegal SexFemale 09/25/2022 6:39 PM EDTGender IdentityNot on fileSexual OrientationNot on file documented as of this encounter Functional Status * Over the past 2 weeks, how often have you been bothered by any of the following problems?QuestionAnswerDate of AssessmentAuthorLittle interest or pleasure in doing thingsNot at all03/24/2024 4:56 PM Thomas Srivastava MA Feeling down, depressed, or hopelessNot at all03/24/2024 4:56 PM Thomas Srivastava MAPatient Health Questionnaire-2 Orely615 4:56 PM Thomas Srivastava MA documented as of this encounter Plan of Treatment DateTypeDepartmentCare Team (Latest Contact Info)Xkdporanilo42/29/2026 3:00 PM EDTProcedure Visit [facility] [address] [place] [address] Danya Zapien PA [address] [place] [address] documented as of this encounter Procedures Procedure NamePriorityDate/TimeAssociated DiagnosisCommentsUS RENAL BI06/27/2023 9:58 AM EST documented in this encounter Results * US RENAL BI (06/27/2023 9:58 AM EST)Anatomical RegionLateralityModalityOther Specimen (Source)Anatomical Location / LateralityCollection Method / Volume Collection TimeReceived Time06/27/2023 9:58 AM EST Narrative 06/27/2023 10:01 AM EST [facility] ?[address] ? [place] [address] ? Ultrasound Report ? Signed ? Patient: ROSE LAYERA Diana ?MR#: [id number] ?? : 1965 ?Acct:[id number] ?? Age/Sex: 57 / F ?ADM Date: 06/27/23 ?? Loc: US ? Attending Dr: Shaikh Cecilio Branch ? Ordering Physician: Shaikh Jose Carlos Hernandes ?? Date of Service: 06/27/23 ?? Procedure(s): US renal BI ?? Accession Number(s): [id number] ? cc: Shaikh Jose Carlos Hernandes ? [facility] ? [address] ? [place] [address] ? Patient Name: ?? ANIYAH S RUFFING ? MRN: [facility]:[id number] ? date: 1965 ?Sex: F ?? Assigned Patient Location: [place] ?? Current Patient Location: [place] ?? Accession/Order Number: [id number] ?? Exam Date: 06/27/2023 ??08:58 ?Report Date: 06/27/2023 ??09:58 ? At the request of: ?CECILIO ? Procedure: ??US renal BI ? EXAMINATION: US renal BI ? HISTORY: Stage 3A Chronic Kidney Disease N18.31 ? COMPARISON: No relevant comparison available. ? TECHNIQUE: Ultrasound examination was performed of the bladder. ? FINDINGS: ? Right Kidney: Normal in size and contour. Cortical thinning, the cortex ?? measures 0.9 cm. Increased cortical echotexture with no solid cortical mass. ?? No ?? hydronephrosis or obstructing nephrolithiasis. ?? Height: 4.0 cm Length: 8.8 cm Width: 4.9 cm ? Left Kidney: Normal in size and contour. Cortical thinning, the cortex ?? measures ?? 0.9 cm. Increased cortical echotexture. Area of isoechogenicity in the midpole ? cortex measuring 2.0 x 1.9 x 2.0 cm. No hydronephrosis or obstructing ?? nephrolithiasis ?? Height: 4.2 cm Length: 9.9 cm Width: 5.1 cm ? The urinary bladder volume is 367 mL. ? Ureteral jets are not visualized ? US/US renal BI ?? IMPRESSION: ? 2 cm area of hypoechogenicity left mid pole cortex. Consider follow-up CT exam ? or MRI without and with contrast for further characterization ? Bilateral renal cortical atrophy and increased echotexture consistent with ?? known medical renal disease ? Electronically authenticated by: NETO ??DINH ?? Date: 06/27/2023 ??09:58 ? Dictated By: ?Neto Tao M.D. ? Signed By: ?06/27/23 1001 ? DD/ 0958 ? TD/TT: ? Biology Tutor: Procedure Note Radiology, Radiologist, MD - 06/27/[address] [address] Ultrasound Report Signed Patient: ANIYAH LAY [facility]#: [id number] : 1965Acct:[id number] Age/Sex: 57 / FADM Date: 06/27/23 Loc: [place] Attending Dr: Shaikh Cecilio Branch Ordering Physician: Shaikh Jose Carlos Hernandes Date of Service: 06/27/23 Procedure(s): US renal BI Accession Number(s): [id number] cc: Shaikh Jose Carlos Hernandes [address] [address] Patient Name: ANIYAH LAY MRN: [facility]:[id number] date: 1965 Sex: F Assigned Patient Location: [place] Current Patient Location: [place] Accession/Order Number: [id number] Exam Date: 06/27/2023 08:58 Report Date: 06/27/2023 [...] M.D. Signed By:06/27/23 1001 DD/ 0958 TD/TT: Biology Tutor: Authorizing ProviderResult TypeResult StatusShaikh Cecilio MDCLINISYNC IMAGING Final Result documented in this encounter Visit Diagnoses Not on filedocumented in this encounter Care Teams Team MemberRelationshipSpecialtyStart DateEnd Date Madhu Murphy MD [facility] Qdnuttvm35/1/231 Shaikh Hernandes MD [facility] - [facility] Shaikh Hernandes MD [address] [place] [address] PCP - [place] Yybjkwxaah65/1/244 Madhu Murphy MD [address] [place] [phone] [facility] - [facility] Medicine02/22/25 Margarette Estevez NP Nurse PractitionerLowell General Hospital Xxifukor36/13/23documented as of this encounter
--- OUTSIDE RECORDS SUMMARY | 2025-05-20 11:18 | XMS_ITS | Clinical Summary ---
Author Organization [facility] Address [address] [place] [address] Care Team Providers Care Etl Programmer Name Role Phone Margarette Estevez SLOT MACHINE FLOOR PERSON Unavailable [phone] Madhu Murphy MD Primary Care Provider [phone] Allergies Active AllergyReactionsCriticalityNoted DateComments Sulfamethoxazole-Wgdhrlwmrguz16/01/2023ee Sgsutp2706/13/2023ee VenomHives 11/29/2014[place] Flavoring Agent (Non-Screening)06/13/2023 [place] QywxuryeirscePeuei49/13/5341Csqdkeq59/01/2023Valproic Acid06/13/2023 Xrmsopymumbtu00/01/8061Ecoejxylbpce76/01/2023Hydrocodone-Rcyilwiftlvjf71/01/2023 Aehspmpjcw36/01/2023OtherHives,Shortness of breath,ZftudenjUfyo23/15/2022 Especially black walnuts Stopisdpwqkq91/01/0567YrwrsxessdhswockTyiqq79/05/2017 Medications MedicationSigDispense QuantityRefillsLast FilledStart DateEnd DateStatus paliperidone (Invega) 3 MG 24 hr tablet Take 3 mg by mouth in the morning. Do not crush, chew, or split. .Active traZODone (Desyrel) 100 MG tablet Take 200 mg by mouth at bedtime.Active omeprazole (PriLOSEC) [address] capsule Take 20 mg by mouth in the morning. Take before meals. Do not crush or chew. . Active EPINEPHrine (Epipen) 0.3 MG/0.3ML injection syringe Indications:Allergic reaction to bee stingInject 0.3 mL (0.3 mg) as directed 1 (one) time for 1 dose use as directed for allergic reaction and then call 911 2 each 4Active magnesium oxide (Mag-Ox) 400 (240 Mg) MG tablet Take 400 mg by mouth Daily03/17/2024ctive alendronate-cholecalciferol (Fosamax Plus D) 70-5600 MG-UNIT tablet Indications:Osteopenia, unspecified locationTake 1 tablet by mouth every 7 (seven) days Take in the morning with a full glass of water, on an empty stomach, and do not take anything else by mouth or lie down for the next 30 min. 4 tablet 5Active losartan (Cozaar) 100 MG tablet Indications:Primary hypertensionTake 1 tablet (100 mg) by mouth Daily 90 tablet 5Active topiramate (Topamax) 100 MG tablet Indications:Migraine without aura and without status migrainosus, not intractable,Bipolar 2 disorder (HCC)Take 1 tablet (100 mg) by mouth Daily 90 tablet 5Active varenicline (Chantix) 1 MG tablet Indications:Cigarette nicotine dependence without complicationTake 1 tablet (1 mg) by mouth in the morning and 1 tablet (1 mg) before bedtime. Take with full glass of water. 60 tablet 5Active estradiol (Estrace) 1 MG tablet Indications:Hormone imbalanceTake 1 tablet (1 mg) by mouth Daily 90 tablet 310//6Active estradiol (Estrace) 1 MG tablet Indications:Hormone imbalanceTAKE 1 TABLET BY MOUTH EVERY DAY 90 tablet Discontinued(Reorder) Active Problems ProblemNoted DateDiagnosed DateOverweight (BMI 25.0-29.9)02/21/2025 Assessment & Plan (02/21/2025 6:47 PM EDT): Has lost about 35 pounds since 03/06 Has made dietary changes as well Nausea and ntpdcuwh03/03/2025ipolar II /12/2025 Assessment & Plan (02/21/2025 6:47 PM EDT): Follow with [facility] Assessment & Plan (12/22/2024 7:46 AM EDT): Follow with [facility] Assessment & Plan (09/22/2024 7:35 AM EDT): Follow with [facility] Chronic kidney disease, stage 3b09/22/2024 Assessment & Plan (02/21/2025 7:00 AM EDT): Follows with Nephrology Recommend tight blood pressure control Limit nephrotoxic drugs 08/07: cr 1.69 Assessment & Plan (12/22/2024 7:45 AM EDT): Follows with Nephrology Recommend tight blood pressure control Limit nephrotoxic drugs 08/07: cr 1.69 Assessment & Plan (09/22/2024 7:37 AM EDT): Follows with Nephrology Recommend tight blood pressure control Limit nephrotoxic drugs 08/07: cr 1.69 Cigarette nicotine dependence without sliwsgdcjiuc05/12/2025 Assessment & Plan (02/21/2025 6:47 PM EDT): The patient has been advised of the risks of continued smoking: stroke, [place], all forms of cancer, lung disease, and . Options for quitting smoking include: cold turkey, hypnosis, acupuncture, nicotine replacement meds(gum, lozenges, and patches), Buproprion, and Varenicline. At this time pt is encouraged to evaluate their goals for wanting to quit smoking, and reach out toprovider when ready to start this process Is doing well jignesh Dave in 2 months Assessment & Plan (12/22/2024 6:26 PM EDT): The patient has been advised of the risks of continued smoking: stroke, [place], all forms of cancer, lung disease, and [...] quit approaches Side effects to monitor for Assessment & Plan (09/22/2024 5:52 PM EDT): The patient has been advised of the risks of continued smoking: stroke, [place], all forms of cancer, lung disease, and . Options for quitting smoking include: cold turkey, hypnosis, acupuncture, nicotine replacement meds(gum, lozenges, and patches), Buproprion, and Varenicline. At this time pt is encouraged to evaluate their goals for wanting to quit smoking, and reach out toprovider when ready to start this process Has been prescribed patches in the past not helping Colon cancer jyqvtfdbp02/12/2025 Assessment & Plan (12/22/2024 7:47 AM EDT): Colon cancer screening options were discussed with patient, as well as why colon cancer screening is indicated. Options are Colonoscopy: direct visualization, every 10 years (unless indicated more frequently), risks and benefits were discussed Cologuard: every 3 years, risks and benefits were discussed , contraindications were discussed (family hx of colon cancer, colon polyps) Patient has elected to: Assessment & Plan (09/22/2024 7:37 AM EDT): Colon cancer screening options were discussed with patient, as well as why colon cancer screening is indicated. Options are Colonoscopy: direct visualization, every 10 years (unless indicated more frequently), risks and benefits were discussed Cologuard: every 3 years, risks and benefits were discussed , contraindications were discussed (family hx of colon cancer, colon polyps) Patient has elected to: Mixed muwufefivvyzaj29/12/2025 Assessment & Plan (09/22/2024 7:39 AM EDT): No statin therapy Encounter for screening for lung rcxflj9709/22/2024 Assessment & Plan (09/22/2024 5:53 PM EDT): Patient meets requirements for low dose CT [...] importance of smoking cessation. Declines CT scan Allergy to nuts (other than peanuts)08/18/2023 Assessment & Plan (09/22/2024 7:36 AM EDT): Uses epi pen when needed Abnormal renal tpafckpmgp66/05/2024 Assessment & Plan (08/18/2023 5:35 PM EST): Renal US ordered for new diagnosis of CKD 3. Area of abnormal echogenicity noted in left kidney. Radiology recommended an MRI - approved today. Patient will call and schedule an MRI. Follow up MRI. Primary yhzruinmlfwu28/04/2023 Assessment & Plan (02/21/2025 6:59 AM EDT): Please check blood pressure daily and record DASH diet Limit caffeine Take medication as directed Contact office if chest pain, pressure, dizziness, shortness of breath, swelling legs Recommend slow position changes Current meds: losartan Assessment & Plan (12/22/2024 7:45 AM EDT): Please check blood pressure daily and record DASH diet Limit caffeine Take medication as directed Contact office if chest pain, pressure, dizziness, shortness of breath, swelling legs Recommend slow position changes Current meds: losartan Assessment & Plan (09/22/2024 7:32 AM EDT): Please check blood pressure daily and record DASH diet Limit caffeine Take medication as directed Contact office if chest pain, pressure, dizziness, shortness of breath, swelling legs Recommend slow position changes Current meds: losartan Assessment & Plan (06/23/2024 5:10 PM EST): Currently taking losartan 100mg Checks BP at home; Averages are less than 120's/80'; Denies orthostatic changes, dizziness, cough, shortness of breath, swelling in extremities. Continue current regimen. Given BP log, advised pt to record BP and bring log back with them to next visit. Assessment & Plan (03/24/2024 5:39 PM EDT): Currently taking losartan 100mg Checks BP at home; Averages are 120's/80's; Denies orthostatic changes, dizziness, cough, shortness of breath, swelling in extremities. Continue current regimen. Given BP log, advised pt to record BP and bring log back with them to next visit. Assessment & Plan (02/12/2024 3:22 PM EDT): At goal on Losartan 100 mg. Tolerating it well. No adverse effects reported. Denies orthostasis, dizziness or low Blood pressure. C/w losartan 100 mg daily. Monitor BP at home. Check labs Assessment & Plan (11/17/2023 5:29 PM EDT): At goal on Losartan 100 mg. Tolerating it well. No adverse effects reported. Denies orthostasis, dizziness or low Blood pressure. C/w losartan 100 mg daily. Monitor BP at home. Assessment & Plan (08/18/2023 5:33 PM EST): New Diagnosis. Asymptomatic. BP > 150/90 --> now well controlled and persistently below 130/80 since she was started on Losartan. Tolerating it well. No adverse effects reported. Denies orthostasis, dizziness or low Blood pressure. C/w losartan 100 mg daily. Monitor BP at home. Assessment & Plan (06/16/2023 6:43 PM EST): New Diagnosis. Asymptomatic. BP > 150/90 No prior hx of Treatment for HTN. Will start patient on Losartan 100 mg. Patient counseled and educated on adverse effects, drug interactions and to reach out to office/pharmacy if questions or concerns related to new medications. Migraine without aura and without status migrainosus, not nkeaovozmpp88/10/2022 Assessment & Plan (09/22/2024 5:56 PM EDT): Current meds: topirimate Migraine MARTINZE per month: 1-2 Triggers: weather, stress Ever had MRI or seen neurology: yes, [facility] has not seen for some time Age at onset: started at age 28 after hyst Happy with therapy: yes Used to take nurtec and aimovig Only takes 1 topamax daily, so I will change script to reflect this Assessment & Plan (06/16/2023 6:46 PM EST): Well controlled on Topamax. Doing well. Oxxtecd2207/28/2021 Assessment & Plan (12/22/2024 7:46 AM EDT): Follow w psych Assessment & Plan (09/22/2024 7:35 AM EDT): Follow w psych Back spasm Resolved Problems ProblemNoted DateDiagnosed DateResolved DateClass 1 obesity due to excess calories with serious comorbidity in adult Assessment & Plan (02/21/2025 7:00 AM EDT): Discussed with patient their BMI (actual, verses recommended). We have also discussed lifestyle modifications: attempts to perform physical activity as chronic conditions allow, also to monitor dietary intake: increasing protein/fruits/veggies and lowering carb intake (unless contraindicated). Limit sodas, juices, and sugary drinks. Assessment & Plan (12/22/2024 7:46 AM EDT): Discussed with patient their BMI (actual, verses recommended). We have also discussed lifestyle modifications: attempts to perform physical activity as chronic conditions allow, also to monitor dietary intake: increasing protein/fruits/veggies and lowering carb intake (unless contraindicated). Limit sodas, juices, and sugary drinks. Assessment & Plan (09/22/2024 7:34 AM EDT): Discussed with patient their BMI (actual, verses recommended). We have also discussed lifestyle modifications: attempts to perform physical activity as chronic conditions allow, also to monitor dietary intake: increasing protein/fruits/veggies and lowering carb intake (unless contraindicated). Limit sodas, juices, and sugary drinks. Screening for yedhdtodicgxbd13 Assessment & Plan (06/23/2024 5:10 PM EST): Currently not managed with any medications.Dietary and lifestyle modifications implemented. Triglycerides elevated, pt adamant on not starting medications. Will recheck in July. Screening for diabetes gzbriicn80/5Class 1 obesity due to excess calories without serious comorbidity with body mass index (BMI) of 33.0 to 33.9 in adult Assessment & Plan (06/23/2024 5:11 PM EST): Discussed with patient their BMI (actual, verses recommended). We have also discussed lifestyle modifications: attempts to perform physical activity as chronic conditions allow, also to monitor dietary intake: increasing protein/fruits/veggies and lowering carb intake (unless contraindicated). Limit sodas, juices, and sugary drinks. Also discussed oral medications that can be utilized for weight loss, as well as surgical options for weight loss. Assessment & Plan (03/24/2024 5:43 PM EDT): Discussed with patient their BMI (actual, verses recommended). We have also discussed lifestyle modifications: attempts to perform physical activity as chronic conditions allow, also to monitor dietary intake: increasing protein/fruits/veggies and lowering carb intake (unless contraindicated). Limit sodas, juices, and sugary drinks. Also discussed oral medications that can be utilized for weight loss, as well as surgical options for weight loss. Assessment & Plan (02/12/2024 3:24 PM EDT): Patient educated on risks of increased cardiovascular morbidity/mortality and poor health outcomes associated with unhealthy bodyweight. Patient counseled on lifestyle modifications, dietary restrictions. Patient encouraged to limit caloric intake and increase physical activity. Therapeutic and surgical options reviewed with patient . Patient was offered opportunity to ask questions and address their concern. Patient will follow up after one month. She was prescribed a low caloric diet. She will try to keepher daily caloric intake to less than 1500/day Bipolar 2 stiulewo95/06/2025 Assessment & Plan (03/24/2024 5:43 PM EDT): Follows in [place]. Mood is stable, denies depressive symptoms. On topamax, invega and trazodone. Assessment & Plan (11/17/2023 5:32 PM EDT): Mood is stable, denies depressive symptoms. On topamax, invega and trazodone. Stage 3a chronic kidney fbhhyog90/06/2025 Assessment & Plan (06/23/2024 5:11 PM EST): Follows closely with Nephrology. Avoid NSAIDS, Nephrotoxic agents. Most recent creatinine 1.60 eGFR: 33 Assessment & Plan (11/17/2023 5:30 PM EDT): CKD 3, new diagnosis. No prior hx. Patient had undiagnosed HTN. Likely due to HTN. Educated and discussed with patient. Answered questions and concerns. Avoid NSAIDS. Has an appt with Nephrology on December 08 Assessment & Plan (08/18/2023 5:34 PM EST): CKD 3, new diagnosis. No prior hx. Patient had undiagnosed HTN. Likely due to HTN. Educated and discussed with patient. Answered questions and concerns. Avoid NSAIDS. Referred to Nephrology. Started on Losartan for HTN. Assessment & Plan (06/16/2023 6:45 PM EST): CKD 3, new diagnosis. No prior hx. Patient had undiagnosed HTN. Likely due to HTN. Educated and discussed with patient. Answered questions and concerns. Avoid NSAIDS. Order renal US and refer to Nephrology. Tobacco ykmmszzxmc67/04/202303/06/2025 Assessment & Plan (06/23/2024 5:14 PM EST): Reordered nicotine patches. Smoking cessation counseling provided. Assessment & Plan (03/24/2024 5:42 PM EDT): Using nicotine patches. States it is working ok . Will add lozenges PRN. Assessment & Plan (02/12/2024 3:22 PM EDT): Smokes one pack per day. Interested in quitting. Will call in nicotine patches. Avoiding Chantix due to mental health hx. Assessment & Plan (11/17/2023 5:30 PM EDT): Patient counseled on smoking/tobacco cessation. Patient educated on harmful effects of smoking cigarettes/tobacco including increased risk of cardiovascular diseases, chronic lung disease and multiple cancers. Patient was educated and informed of different behavioral and therapeutic interventions that can help with smoking/tobacco use. Patient's questions/concerns were addressed and answered related to therapeutic options. Patient was offered help and encouraged to reach out to provider if/when they are ready to quit. Assessment & Plan (06/16/2023 6:55 PM EST): Patient counseled on smoking/tobacco cessation. Patient educated on harmful effects of smoking cigarettes/tobacco including increased risk of cardiovascular diseases, chronic lung disease and multiple cancers. Patient was educated and informed of different behavioral and therapeutic interventions that can help with smoking/tobacco use. Patient's questions/concerns were addressed and answered related to therapeutic options. Patient was offered help and encouraged to reach out to provider if/when they are ready to quit. A total of over 3 minutes and up to 10 minutes were spent on Smoking/Tobacco use counseling. Patient would like to quit on her own. Encounters DateTypeDepartmentCare XuozHkwakfekkmj40/03/2025Orders Only [facility] [address] [place] [address] Zina Gaytan LPN 05/02/2025 3:00 PM EDTOffice [place] [address] Danya Zapien PA Well woman exam with routine gynecological exam; H/O: hysterectomy; Encounter for screening mammogram for malignant neoplasm of breast; Hormone ycjmzaxgf80/20/2025Clinisync Result Encounter [facility] External Department Unsolicited Danya Zapien PA 5Bamboo flowsheet [facility] [address] [place] [address] [place] [address] Danya Zapien PA 02/21/2025 6:00 PM EDTOffice Visit [facility] [address] [place] [address] Margarette Estevez NP Primary hypertension (Primary Dx); Chronic kidney disease, stage 3b (CMS-HCC); Class 1 obesity due to excess calories with serious comorbidity in adult, unspecified BMI; Cigarette nicotine dependence without complication; Migraine without aura and without status migrainosus, not intractable ; Bipolar 2 disorder (HCC); Overweight (BMI 25.0-29.9); Bipolar II disorder (HCC)02/21/2025amboo flowsheet [facility] [address] [place] [id number] Margarette Estevez NP from Last 3 Months Immunizations ImmunizationAdministration DatesNext DueTd (adult), 5 Lf tetanus toxoid, preservative free, /30/2021 Family History Medical HistoryRelationNameCommentsCoronary artery diseaseFatherHypertension FatherStrokeFatherCancerMotherCoronary artery diseaseMotherHypertensionMother Kidney diseaseMotherRelationNameStatusCommentsFatherDeceasedMotherDeceased Social History Tobacco UseTypesPacks/DayYears UsedDateSmoking Tobacco: Every DayCigarettes0.5 41.8Started: 1984Smokeless Tobacco: Never Tobacco Cessation:Ready to Q uit: Not Asked; Counseling Given: Not Answered Alcohol UseStandard Drinks/WeekCommentsNever0 (1 standard drink = 0.6 oz pure alcohol)PHQ-2AnswerDate RecordedPatient Health Questionnaire-2 Ptvvm213 CommentsNoSex and Gender InformationValueDate RecordedSex Assigned at BirthNot on fileLegal VdkYmsyva64/15/2023 6:39 PM EDTGender IdentityNot on file Sexual OrientationNot on file Last Filed Vital Signs Vital SignReadingTime TakenCommentsBlood Pnfelrxi440/8010 3:33 PM EDT Lvpzz8016 6:14 PM BEPNmybfxkjcqh09.6 ??C (97.8 ??F)02/21/2025 6:14 PM EDTRespiratory Vfig4637 6:14 PM EDTOxygen Bulxzuvbse71%02/21/2025 6:14 PM EDTInhaled Oxygen Concentration--Eszbub71.6 kg (171 lb)05/02/2025 3:33 PM EDT Dnavpj723.6 cm (5' 6 )06/23/2024 4:55 PM ESTBody Mass Index27.6108/24/2023 4:55 PM EST Plan of Treatment DateTypeDepartmentCare Team (Latest Contact Info)Riclkklrhtc25/29/2026 3:00 PM EDTProcedure Visit [facility] [address] [place] [address] Danya Zapien PA [address] [facility] [address] [place], [place] [id number] Procedures Procedure NamePriorityDate/TimeAssociated DiagnosisCommentsIGP,APTIMA HPV,AGE UVBBYpivkaf30/20/2025 3:26 PM EDT PAP TEST, AJQYEGXCXpnziiu17/20/2025 12:00 AM EDTfrom Last 3 Months Results * IGP,APTIMA HPV,AGE GDLN (05/02/2025 3:26 PM EDT)ComponentValueRef RangeTest MethodAnalysis TimePerformed AtPathologist SignatureAGE GDLN ACOG TESTINGNote. TBHComment: ?? TESTS ? RESULT ??FLAG ??UNITS ?REF RANGE ??LAB ?? Clinician Provided Cytology Information ?? Source.............Vagina ?? No. of containers..01 ThinPrep Vial Age Algo ACOG Marisol... ??30-65 ? 01 ?FLAG LEGEND: ?L-Low Normal,H-High Normal,LL-Alert Low,HH-Alert High <-Panic Low,>-Panic High,A-Abnormal,AA-Critical Abnormal Performed at: 01 =G ?[facility] ?? [address] [place] [address], [place] ??[phone] ?? Coby Russell MD, IGP, APTIMA HPV, RFX 16/18,45Note.TBHComment: ?? TESTS ? RESULT ??FLAG ??UNITS ?REF RANGE ??LAB DIAGNOSIS: ?02 ?? NEGATIVE FOR INTRAEPITHELIAL LESION OR MALIGNANCY. Specimen adequacy: ?02 ?? Satisfactory for evaluation. Performed by: ? 02 ?? Basia Newby, Supervisory Wellness Nurse (ASCP) . ? 02 Note: ? Note ?02 ?? The Pap smear is a screening test designed to aid in the ?? detection of premalignant and malignant conditions of the ?? uterine cervix. ??It is not a diagnostic procedure and ?? should not be used as the sole means of detecting cervical ?? cancer. ??Both false-positive and false-negative reports do ?? occur. Test Methodology: ? Note ?02 ?? This liquid based ThinPrep(R) pap test was interpreted ?? using the N[employer](R) Genius(TM) Cervical Algorithm whole ?? slide imaging system. HPV Genotype Reflex ?? Note ?02 ?? Criteria not met, HPV Genotype not performed. ?FLAG LEGEND: ?L-Low Normal,H-High Normal,LL-Alert Low,HH-Alert High <-Panic Low,>-Panic High,A-Abnormal,AA-Critical Abnormal Performed at: 02 WB ?[facility] ?? [address] [place], [place] ??[phone] ?? Coby Russell MD, HPV APTIMANegativeNegativeTBHComment: This nucleic acid amplification test detects fourteen high- risk HPV types (16,18,31,33,35,39,45,51,52,56,58,59,66,68) without differentiation. Performed at: ??=G - [facility] [address] ??[id number] Rf Engineer: Coby Russell MD, Phone: ??[phone] Performed at: ??WB - [facility] ??[id number] Rf Engineer: Coby Russell MD, Phone: ??[phone] Specimen (Source)Anatomical Location / LateralityCollection Method / Volume Collection TimeReceived Time05/02/2025 3:26 PM EDT1 8:49 PM EDT Narrative [facility] - 05/06/2025 3:08 PM EDT SPATULA-ALONE VAGINA Authorizing ProviderResult TypeResult StatusAmy Curry PALAB BLOOD ORDERABLES Final ResultPerforming OrganizationAddressCity/State/ZIP CodePhone Number [facility] * PAP TEST, EXTERNAL (05/02/2025 12:00 AM EDT) Narrative Authorizing ProviderResult TypeResult StatusFazio Nurse [facility] CYTOLOGY ORDERABLESFinal ResultPerforming OrganizationAddressCity/State/ZIP CodePhone Number EXTERNAL LAB from Last 3 Months Insurance Care Teams Team MemberRelationshipSpecialtyStart DateEnd Date Madhu Murphy MD PCP - GeneralFamily Medicine02/22/25 Margarette Estevez NP Nurse PractitionerFamily Gjjifspd40/13/23
--- OUTSIDE RECORDS SUMMARY | 2025-05-20 11:18 | XMS_ITS | Encounter Summary ---
Author Organization [facility] Address [address] [place] [address] Care Team Providers Care Renovator Machine Operator Name Role Phone Herb Margarette SANDOVAL Unavailable [phone] Shaikh DENISE Hernandes Primary Care Provider Shaikh DENISE Hernandes Unavailable [phone] Madhu Murphy MD Primary Care Provider [phone] Encounter Details DateTypeDepartmentCare Team (Latest Contact Info)Ninbnxrhwiu83/01/2024Clinisync Result Encounter [facility] External Department Unsolicited Danya Zapien PA [address] [place] [address] Social History Tobacco UseTypesPacks/DayYears UsedDateSmoking Tobacco: Every DayCigarettes0.5 41.8Started: 1984Smokeless Tobacco: NeverAlcohol UseStandard Drinks/WeekComments Never0 (1 standard drink = 0.6 oz pure alcohol)PHQ-2AnswerDate RecordedPatient Health Questionnaire-2 Zvhvc1484CommentsUnknownSex and Gender InformationValueDate RecordedSex Assigned at BirthNot on fileLegal SexFemale 09/25/2022 6:39 PM EDTGender IdentityNot on fileSexual OrientationNot on file documented as of this encounter Plan of Treatment DateTypeDepartmentCare Team (Latest Contact Info)Yzzmjtdactd49/29/2026 3:00 PM EDTProcedure Visit [facility] [place] [facility] [address] [place] [address] Danya Zapien PA [address] [place] [address] [place] [address] documented as of this encounter Procedures Procedure NamePriorityDate/TimeAssociated DiagnosisCommentsMM TOMOSYNTHESIS SCREENING BI05/14/2024 1:33 PM EDT documented in this encounter Results * MM TOMOSYNTHESIS SCREENING BI (05/14/2024 1:33 PM EDT)Anatomical Region LateralityModalityOtherSpecimen (Source)Anatomical Location / Laterality Collection Method / VolumeCollection TimeReceived Time05/14/2024 1:33 PM EDT Narrative 05/14/2024 1:33 PM EDT [facility] ?[address] ? [place] [address] ? Mammography Report ? Signed ? Patient: ANIYAH LAY ?MR#: [id number] ?? : 1965 ?Acct:[id number] ?? Age/Sex: 58 / F ?ADM Date: 05/14/24 ?? Loc: MAMMO ? Attending Dr: Danya Zapien ? Ordering Physician: Danya Zapien ?Results: ? Date of Service: 05/14/24 ?Follow Up: ? Procedure(s): MM tomosynthesis screening BI ?? Accession Number(s): [id number] ? cc: Danya Zapien; Physician,Non-Staff M.D. ? Patient Name: ? ANIYAH RUFFING ? MR#: [id number] ? : 1965 ? Exam Date: 05/14/2024 ?? Ordering Doctor: SHENA Zapien . ? RADIOLOGY REPORT ? PROCEDURE: ? MM TOMOSYNTHESIS SCREENING BI ? COMPARISON: ? MG MAMM LT DIAG FU, 05/04/2019. ??MG MAMM SCREEN ELEANOR W CAD, ?? 04/13/2019. ? INDICATIONS: ? Screening ? Calculator Name ? NCI Breast Cancer Risk Assessment Tool ?? 5 Year Breast Cancer Risk ? 1.00% ?? Lifetime Breast Cancer Risk ? 5.30% ?? Personal Breast Cancer ?No ?? Personal Ovarian Cancer ? No ?? Treatments ? None ?? Family Cancers ? Aunt-maternal with breast cancer at age 39; Aunt-paternal ?? with breast cancer at age 50; Mother with uterine cancer at age 29. ? LOCATION: ? [facility] ? BREAST COMPOSITION: ? The breasts are heterogeneously dense,which may ?? obscure small masses. ? FINDINGS: ? DIAGNOSTIC CATEGORY 2--BENIGN FINDING. NO CHANGE FROM COMPARISON. ? Scattered benign-appearing nodules are present. ??Scattered benign-appearing ?? calcifications are present. ??Scattered benign-appearing lymph nodes are ?? present. ? RIGHT BREAST: ??No significant suspicious finding. ? LEFT BREAST: ??No significant suspicious finding. ? RECOMMENDATIONS: ? ROUTINE MAMMOGRAM AND CLINICAL EVALUATION IN 12 MONTHS. ? PLEASE NOTE: ??A NORMAL MAMMOGRAM DOES NOT EXCLUDE THE POSSIBILITY OF BREAST ?? CANCER. ??A CLINICALLY SUSPICIOUS PALPABLE LUMP SHOULD BE BIOPSIED. ? Dictated by: Rogelio Jesus MD on 05/14/2024 at 13:31 ? Approved by: Rogelio Jesus MD on 05/14/2024 at 13:32 ? Dictated By: ?Rogelio Jesus M.D. ? Signed By: ?05/14/243 ? DD/ 32 ? TD/TT: ? Band Straightener: Procedure Note Radiology, Radiologist, - 05/14/2024 [place] [address] Mammography Report Signed Patient: ANIYAH LAY SMR#: [id number] : 1965Acct:[id number] Age/Sex: 58 / FADM Date: 05/14/24 Loc: MAMMO Attending Dr: Danya Zapien Ordering Physician: Danya ZapienResults: Date of Service: 05/14/24Follow Up: Procedure(s): MM tomosynthesis screening BI Accession Number(s): [id number] cc: Danya Zapien; Physician,Non-Staff M.DEliceo Patient Name: ANIYAH LAY MR#: [id number] : 1965 Exam Date: 05/14/2024 Ordering Doctor: [...] uterine cancer at age 27. LOCATION: [facility] BREAST COMPOSITION: The breasts are heterogeneously [...] MD on 05/14/2024 at 13:32 Dictated By: oRgelio Jesus M.D. Signed By:05/14/24 1333 DD/ 32 TD/TT: Band Straightener: Authorizing ProviderResult TypeResult StatusAmy Curry PACLINISYNC IMAGINGFinal Result documented in this encounter Visit Diagnoses Not on filedocumented in this encounter Care Teams Team MemberRelationshipSpecialtyStart DateEnd Date Shaikh Hernandes MD PCP - GeneralInternal Medicine Shaikh Hernandes MD [address] [place] [place] [address] [facility] Madhu [facility] MD [address] [place] [place] [address] PCP - GeneralWashington [facility] Clinicsly Medicine02/22/25 Margarette Estevez NP Nurse PractitionerFahily Jmeqeqsc39/13/23documented as of this encounter
--- OUTSIDE RECORDS SUMMARY | 2025-05-20 11:18 | XMS_ITS | Encounter Summary ---
Author Organization [facility] Address [address] [place] [address] Care Team Providers Care Community Health Nursing Director Name Role Phone MikaljimmiesukhwinderMargarette olson HAY STACKER OPERATOR Unavailable [phone] Madhu Murphy MD Primary Care Provider [phone] Encounter Details DateTypeDepartmentCare Team (Latest Contact Info)Eyxdapaqvdz47/20/2025linisync Result Encounter [facility] External Department Unsolicited Danya Zapien PA [address] [facility] [place] [address] Social History Tobacco UseTypesPacks/DayYears UsedDateSmoking Tobacco: Every DayCigarettes0.5 41.8Started: 1984Smokeless Tobacco: NeverAlcohol UseStandard Drinks/WeekComments Never0 (1 standard drink = 0.6 oz pure alcohol)PHQ-2AnswerDate RecordedPatient Health Questionnaire-2 Xjbnr4004CommentsNoSex and Gender InformationValueDate RecordedSex Assigned at BirthNot on fileLegal SexFemale 09/25/2022 6:39 PM EDTGender IdentityNot on fileSexual OrientationNot on file documented as of this encounter Plan of Treatment DateTypeDepartmentCare Team (Latest Contact Info)Ygtbazzmgpj04/29/2026 3:00 PM EDTProcedure Visit [facility] [place] [facility] [address] [facility] [place] [address] Danya Zapien PA [address] [facility] [place] [address] documented as of this encounter Procedures Procedure NamePriorityDate/TimeAssociated DiagnosisCommentsIGPSOCRATESIMA HPV,AGE KXXSSklxxuq23/20/2025 3:26 PM EDT documented in this encounter Results * IGP,APTIMA HPV,AGE GDLN (05/02/2025 3:26 [...] at: 01 =G ?[facility] ?? [address] [place] ??[address] ?? Coby Russell MD, IGP, APTIMA HPV, RFX 16/18,45Note.TBHComment: ?? TESTS ? RESULT ??FLAG ??UNITS ?REF RANGE ??LAB DIAGNOSIS: ?02 ?? NEGATIVE FOR INTRAEPITHELIAL LESION OR MALIGNANCY. Specimen adequacy: ?02 ?? Satisfactory for evaluation. Performed by: ? 02 ?? Basia Newby, Supervisory Multimedia Journalist (ASCP) . ? 02 Note: ? Note [...] pap test was interpreted ?? using the [employer](TM) Cervical Algorithm whole ?? slide imaging system. HPV Genotype Reflex ?? Note ?02 ?? Criteria not met, HPV Genotype not performed. ?FLAG LEGEND: ?L-Low Normal,H-High Normal,LL-Alert Low,HH-Alert High <-Panic Low,>-Panic High,A-Abnormal,AA-Critical Abnormal Performed at: 02 WB ?[facility] ?? [address], [place] ??[address] ?? Coby Russell MD, HPV APTIMANegativeNegativeTBHComment: This nucleic acid amplification test detects fourteen high- risk HPV types (16,18,31,33,35,39,45,51,52,56,58,59,66,68) without differentiation. Performed at: ??=G - [facility] [address] ??[id number] Gas Engine Operator Compressors: Coby Russell MD, Phone: ??[phone] Performed at: ??WB - [facility] ??[id number] Gas Engine Operator Compressors: Coby Russell MD, Phone: ??[phone] Specimen (Source)Anatomical Location / LateralityCollection Method / Volume Collection TimeReceived Time05/02/2025 3:26 PM EDT1 8:49 PM EDT Narrative [facility] - 05/06/2025 3:08 PM EDT SPATULA-ALONE VAGINA Authorizing ProviderResult TypeResult StatusAmy [place] ÁNGELA BLOOD ORDERABLES Final ResultPerforming OrganizationAddressCity/State/ZIP CodePhone Number [facility] documented in this encounter Visit Diagnoses Not on filedocumented in this encounter Care Teams Team MemberRelationshipSpecialtyStart DateEnd Date Madhu Murphy MD PCP - GeneralFamily Medicine02/22/25 Margarette Estevez NP Nurse PractitionerFamily Vhamhvnb78/13/23documented as of this encounter
--- OUTSIDE RECORDS SUMMARY | 2025-05-20 11:18 | XMS_ITS | Encounter Summary ---
Author Organization [facility] Address [address] [place] [address] Care Team Providers Care Hazardous Material Specialist Name Role Phone Herb Margarette SANDOVAL Unavailable [phone] Shaikh DENISE Hernandes Primary Care Provider Shaikh DENISE Hernandes Unavailable [phone] Madhu Murphy MD Primary Care Provider [phone] Encounter Details DateTypeDepartmentCare Team (Latest Contact Info)Swkvstmkcuo34/02/2024Clinisync Result Encounter [facility] External Department Unsolicited Danya Najera PA [address] [place] [address] Social History Tobacco UseTypesPacks/DayYears UsedDateSmoking Tobacco: Every DayCigarettes0.5 41.8Started: 1984Smokeless Tobacco: NeverAlcohol UseStandard Drinks/WeekComments Never0 (1 standard drink = 0.6 oz pure alcohol)PHQ-2AnswerDate RecordedPatient Health Questionnaire-2 Mtufv8054CommentsUnknownSex and Gender InformationValueDate RecordedSex Assigned at BirthNot on fileLegal SexFemale 09/25/2022 6:39 PM EDTGender IdentityNot on fileSexual OrientationNot on file documented as of this encounter Plan of Treatment DateTypeDepartmentCare Team (Latest Contact Info)Qeofilvptrp61/29/2026 3:00 PM EDTProcedure Visit [facility] [place] [facility] [address] [place] [address] Danya Najera PA [address] [place] [address] [place] [address] documented as of this encounter Procedures Procedure NamePriorityDate/TimeAssociated DiagnosisCommentsXR DEXA AXIAL OQZABPSQ98/02/2024 6:10 AM EDT documented in this encounter Results * XR DEXA AXIAL SKELETON (05/15/2024 6:10 AM EDT)Anatomical RegionLaterality ModalityOtherSpecimen (Source)Anatomical Location / LateralityCollection Method / VolumeCollection TimeReceived Time05/15/2024 6:10 AM EDT Narrative 05/15/2024 6:12 AM EDT [facility] ?[address] ? [place] [address] ?XRay Report ? Signed ? Patient: ANIYAH LAY ?MR#: [id number] ?? : 1965 ?Acct:[id number] ?? Age/Sex: 58 / F ?ADM Date: 05/14/24 ?? Loc: MAMMO ? Attending Dr: Danya Najera ? Ordering Physician: Danya Najera ?? Date of Service: 05/14/24 ?? Procedure(s): XR DEXA axial skeleton ?? Accession Number(s): [id number] ? cc: Danya Najera; Physician,Non-Staff M.D. ? [facility] ? [address] [place] [address] ? [place] [address] ? Patient Name: ?? ANIYAH LAY ? MRN: [facility]:[id number] ? date: 1965 ?Sex: F ?? Assigned Patient Location: MAMMO ?? Current Patient Location: ? Accession/Order Number: [id number] ?? Exam Date: 05/14/2024 ??11:10 ?Report Date: 05/15/2024 ??06:10 ? At the request of: ?? DANYA ??REINALDO ? Procedure: ??XR DEXA axial skeleton ? EXAMINATION: XR DEXA axial skeleton ? HISTORY: Postmenopausal State ? COMPARISON: No relevant comparison available. ? TECHNIQUE: Dual-energy X-ray absorptiometry (DXA) was performed. ? FINDINGS: ?? SPINE ANALYSIS: ?? Average bone mineral density is 1.205 g/cm2. ?? T-score (standard deviation relative to young adult mean): 0.2 . ? HIP ANALYSIS: ?? Lowest bone mineral density is within the left femoral neck, 0.822 g/cm2. ?? T-score (standard deviation relative to young adult mean): -1.6 . ? XR/XR DEXA axial skeleton ?? IMPRESSION: ? World Health Organization Classification: Osteopenia - Moderate Fracture Risk ?? FRAX: Cannot be calculated. ? Pharmacologic treatment recommendations ?? * No uniform recommendation applies to all patients. Management plans must be ?? individualized. ?? * Consider initiating pharmacologic treatment in postmenopausal women and men ?? >= 50 years of age who have the following: Primary fracture prevention: ?? * T-score <= - 2.5 at the femoral neck, total hip, lumbar spine, 33% radius (some uncertainty with existing data) by DXA. ?? * Low bone mass (osteopenia: T-score between - 1.0 and - 2.5) at the femoral ?? neck or total hip by DXA with a 10-year hip fracture risk >= 3% or a 10-year major osteoporosis-related fracture risk >= 20% (i.e., clinical vertebral, hip, ?? forearm, or proximal humerus) based on the US-adapted FRAXregistered model. ?? Secondary fracture prevention: ?? * Fracture of the hip or vertebra regardless of BMD [4, 5]. ?? * Fracture of proximal humerus, pelvis, or distal forearm in persons with low ?? bone mass (osteopenia: T-score between - 1.0 and - 2.5). The decision to treat ? should be individualized in persons with a fracture of the proximal humerus, ?? pelvis, or distal forearm who do not have osteopenia or low BMD [12, 13]. ?? Bi MS, Mell SL, Chung KL, Eduard EM, Leia KG, AJ, Reva ?? ES. ?? The clinician's guide to prevention and treatment of osteoporosis. Osteoporos ?? Int. 2021;33(10):9948-6928. doi: 10.1007/z91463-467-99085-s. Epub 2021 ? 28. Erratum in: Osteoporos Int. 2021Feb 07;: PMID: 91052211; PMCID: ?? [id number]. ? Electronically authenticated by: JUAN ??DARIA ?? Date: 05/15/2024 ??06:10 ? Dictated By: ?Juan Martinez M.D. ? Signed By: ?05/15/24611 ? DD/ 9 ? TD/TT: ? Maintenance Advisor: Procedure Note Radiology, Radiologist, - 05/15/2024 [place] [address] XRay Report Signed Patient: ANIYAH LAY SMR#: [id number] : 1965Acct:[id number] Age/Sex: 58 / FADM Date: 05/14/24 Loc: MAMMO Attending Dr: Danya Najera Ordering Physician: Danya Najera Date of Service: 05/14/24 Procedure(s): XR DEXA axial skeleton Accession Number(s): [id number] cc: Danya Najera; Physician,Non-Staff M.D. The [address] [id number] Patient Name: ANIYAH LAY MRN: [id number] date: 1965 Sex: F Assigned Patient Location: [facility] Current Patient Location: Accession/Order Number: [id number] Exam Date: 05/14/2024 11:10 Report Date: 05/15/2024 [...] 10-year hip fracture risk >= 3% or d94-fanh major osteoporosis-related fracture risk >= 20% (i.e., [...] to prevention and treatment of osteoporosis.Osteoporos Int. 2021;33(10):5496-8582. doi: 10.1007/k12312-038-11902-s. Epub . Erratum in: Osteoporos Int. 2021Feb 07;: PMID: 42917021; PMCID: [id number]. Electronically authenticated by: JUAN MARTINEZ Date: 05/15/2024 06:10 Dictated By: Juan Martinez M.D. Signed By:05/15/24611 DD/ 9 TD/TT: Maintenance Advisor: Authorizing ProviderResult TypeResult StatusAmy Dunbarton PACLINISYNC IMAGINGFinal Result documented in this encounter Visit Diagnoses Not on filedocumented in this encounter Care Teams Team MemberRelationshipSpecialtyStart DateEnd Date Shaikh Hernandes MD PCP - GeneralInternal Medicine Shaikh Hernandes MD [address] [place] [address] PCP - Liborio Negron Torres Velnoncwru05/1/244 Madhu Murphy MD [address] [place] [address] PCP - GeneralFamily Medicine02/22/25 Margarette Estevez NP Nurse PractitionerFamily Vrnpkdlj95/13/23documented as of this encounter
--- OUTSIDE RECORDS SUMMARY | 2025-05-20 11:18 | XMS_ITS | Encounter Summary ---
Author Organization [facility] Address [address] [place] [address] Care Team Providers Care Medical Screener Name Role Phone MikalMargarette ferreira TILE MOLDER Unavailable [phone] Madhu Murpyh MD Primary Care Provider [phone] Encounter Details DateTypeDepartmentCare Team (Latest Contact Info)Gjymlleyasv18/03/2025Orders Only [facility] [address] [facility] [place] [address] Zina Gaytan LPN 102 [facility] Social History Tobacco UseTypesPacks/DayYears UsedDateSmoking Tobacco: Every DayCigarettes0.5 41.8Started: 1984Smokeless Tobacco: NeverAlcohol UseStandard Drinks/WeekComments Never0 (1 standard drink = 0.6 oz pure alcohol)PHQ-2AnswerDate RecordedPatient Health Questionnaire-2 Sitwq5594CommentsNoSex and Gender InformationValueDate RecordedSex Assigned at BirthNot on fileLegal SexFemale 09/25/2022 6:39 PM EDTGender IdentityNot on fileSexual OrientationNot on file documented as of this encounter Plan of Treatment DateTypeDepartmentCare Team (Latest Contact Info)Zxrhgujfttv65/29/2026 3:00 PM EDTProcedure Visit [facility] Tim [facility] [address] [facility] [place] [address] Danya Zapien PA [address] [facility] [place] [address] documented as of this encounter Procedures Procedure NamePriorityDate/TimeAssociated DiagnosisCommentsPAP TEST, EXTERNAL Sdovoqw8805/02/2025 12:00 AM EDTdocumented in this encounter Results * PAP TEST, EXTERNAL (05/02/2025 12:00 AM EDT) Narrative Authorizing ProviderResult TypeResult StatusFazio Nurse [facility] ObLAB CYTOLOGY ORDERABLESFinal ResultPerforming OrganizationAddressCity/State/ZIP CodePhone Number EXTERNAL LAB documented in this encounter Visit Diagnoses Not on filedocumented in this encounter Care Teams Team MemberRelationshipSpecialtyStart DateEnd Date Madhu Murphy MD PCP - GeneralFamily Medicine02/22/25 Margarette Estevez NP Nurse PractitionerFamily Prtzhwxc61/13/23documented as of this encounter
--- OUTSIDE RECORDS SUMMARY | 2025-05-20 11:18 | XMS_ITS | Encounter Summary ---
Author Organization [facility] Address [address] [place] [address] Care Team Providers Care Production Trainer Name Role Phone Margarette Estevez WATER CONTROL STATION ENGINEER Unavailable [phone] Shaikh DENISE Hernandes Primary Care Provider [phone] Shaikh DENISE Hernandes Unavailable [phone] Madhu Murphy MD Primary Care Provider [phone] Encounter Details DateTypeDepartmentCare Team (Latest Contact Info)Svpmawiumem06/12/2024Clinisync Result Encounter [facility] External Department Unsolicited Shaikh Hernandes MD [address] [place] [address] Social History Tobacco UseTypesPacks/DayYears UsedDateSmoking Tobacco: Every DayCigarettes0.515 Smokeless Tobacco: NeverAlcohol UseStandard Drinks/WeekCommentsNever0 (1 standard drink = 0.6 oz pure alcohol)PHQ-2AnswerDate RecordedPatient Health Questionnaire-2 Jwhte3104CommentsUnknownSex and Gender InformationValueDate RecordedSex Assigned at BirthNot [...] 4:56 PM Thomas Srivastava MAPatient Health Questionnaire-2 Enjad495 4:56 PM Thomas Srivastava MA documented as of this encounter Plan of Treatment DateTypeDepartmentCare Team (Latest Contact Info)Hhvdjkgbofz10/29/2026 3:00 PM EDTProcedure Visit [facility] [place] [facility] [address] [facility] [place] [address] Danya Zapien PA [address] [facility] [place] [address] documented as of this encounter Procedures Procedure NamePriorityDate/TimeAssociated DiagnosisCommentsMR ABDOMEN W AND WO VJUSTIVK96/12/2024 8:15 AM EST documented in this encounter Results * MR abdomen w and wo contrast (08/25/2023 8:15 AM EST)Anatomical Region LateralityModalityAbdomenMagnetic ResonanceSpecimen (Source)Anatomical Location / LateralityCollection Method / VolumeCollection TimeReceived Time 08/25/2023 8:15 AM EST Narrative 08/25/2023 8:18 AM EST [facility] ?[address] ? [place] [address] ? Magnetic Resonance Report ? Signed ? Patient: ROSE LAYERA Diana ?MR#: [id number] ?? : 1965 ?Acct:[id number] ?? Age/Sex: 57 / F ?ADM Date: 08/22/23 ?? Loc: MRI ? Attending Dr: Shaikh Cecilio Branch ? Ordering Physician: Shaikh Jose Carlos Hernandes ?? Date of Service: 08/22/23 ?? Procedure(s): MR abdomen wo/w con ?? Accession Number(s): [id number] ? cc: Shaikh Jose Carlos Hernandes ? [facility] ? [address] ? [place] [address] ? Patient Name: ?? ANIYAH LAY ? MRN: [id number] ? date: 1965 ?Sex: F ?? Assigned Patient Location: MRI ?? Current Patient Location: ? Accession/Order Number: [id number] ?? Exam Date: 08/22/2023 ??13:45 ?Report Date: 08/25/2023 ??08:15 ? At the request of: ?CCEILIO ? Procedure: ??MR abdomen wo/w con ? EXAMINATION: MR abdomen wo/w con ? HISTORY: Abnormal ultrasound of left kidney ? COMPARISON: No relevant comparison available. ? TECHNIQUE: A comprehensive examination was performed utilizing a variety of ?? imaging planes and imaging parameters to optimize visualization of suspected ?? pathology. Images were obtained without contrast. ? FINDINGS: ?? LIVER: Visualized portions demonstrate no focal mass ?? BILIARY: The gallbladder is nonvisualized ?? PANCREAS: No lesion, fluid collection, ductal dilatation, or atrophy. ?? SPLEEN: No enlargement or focal lesion. ?? KIDNEYS: Multiple bilateral renal cortical hypodensities, nonenhancing. ?? Cortical cysts are favored the largest along the left lateral midpole measures ? 1.2 x 0.6 cm. No focal solid mass ?? ADRENALS: No mass or enlargement. ?? AORTA/VASCULAR: No aneurysm or dissection. ?? RETROPERITONEUM: No mass or adenopathy. ?? BOWEL/MESENTERY: No visible mass, obstruction, or bowel wall thickening. ?? ABDOMINAL WALL: No mass or hernia. ?? BONES: No bony lesion or fracture. ?? LUNG BASES: No visible pleural disease. Lung bases not well assessed with MRI. ?? OTHER: Negative. ? MR/MR abdomen wo/w con ?? IMPRESSION: ? No focal renal mass. The abnormality on ultrasound represents prominent ?? midpole ?? cortical tissue ? Electronically authenticated by: NETO ??DINH ?? Date: 08/25/2023 ??08:15 ? Dictated By: ?Neto Tao M.D. ? Signed By: ?08/25/23 0818 ? DD/ 0815 ? TD/TT: ? Bell Spinner Sousaphones: Procedure Note Radiology, Radiologist, MD - 08/25/[address] [address] Magnetic Resonance Report Signed Patient: ANIYAH LAY [facility]#: [id number] : 1965Acct:[id number] Age/Sex: 57 / FADM Date: 08/22/23 Loc: MRI Attending Dr: Shaikh Cecilio Branch Ordering Physician: Shaikh Jose Carlos Hernandes Date of Service: 08/22/23 Procedure(s): MR abdomen wo/w con Accession Number(s): [id number] cc: Shaikh Jose Carlos Hernandes [address] [address] Patient Name: ANIYAH LAY MRN: [id number] date: 1965 Sex: F Assigned Patient Location: MRI Current Patient Location: Accession/Order Number: [id number] Exam Date: 08/22/2023 13:45 Report Date: 08/25/2023 [...] Tao M.D. Signed By:08/25/23817 DD/ 4 TD/TT: Bell Spinner Sousaphones: Authorizing ProviderResult TypeResult StatusShaikh Cecilio W[facility]OKLA[facility]OMA [facility] PROCEDURES Final Result documented in this encounter Visit Diagnoses Not on filedocumented in this encounter Care Teams Team MemberRelationshipSpecialtyStart DateEnd Date Shaikh Hernandes MD PCP - GeneralInternal Medicine Shaikh Hernandes MD [address] [place] [place] [address] [facility] Madhu [facility] MD [address] [place] [address] PCP - GeneralFamily Medicine02/22/25 Margarette Estevez NP Nurse PractitionerFamily Acqumytt03/13/23documented as of this encounter
--- OUTSIDE RECORDS SUMMARY | 2025-05-20 11:19 | XMS_ITS | CCD ---
Author Organization [facility] Care Team Providers Care Manager Research And Development Name Role Phone ELIANE BEEBE Admitting Unavailable ELIANE BEEBE Attending Unavailable SANDRA LIZARRAGA Consulting Unavailable Justin Che II Unavailable [phone] Christiana Lazaro Unavailable Bahman Meneses Unavailable Ethan Licona Primary Care Unavailable Kathryn Parks Attending Unavailable Kathryn Parks Admitting Unavailable JORGE L, DR ROONEY Admitting Unavailable JORGE L, DR ROONEY Primary Care Unavailable HOUSE, DR ROONEY Consulting Unavailable HOUSE, DR ROONEY Attending Unavailable DARIA, DR JAY Osuna Consulting Unavailable BECCA THOMAS Admitting Unavailable BECCA THOMAS Consulting Unavailable BECCA THOMAS Attending Unavailable JOGRE L, DR ROONEY Primary Care Unavailable Herb SANDOVAL, Margarette Unavailable Shaikh Hernandes MD Primary Care Provider Jorge Luis Barajas Unavailable MD Chinmay Manning Attending Provider MD Chinmay Manning Attending Provider Herb SANDOVAL, Margarette Unavailable Shaikh Hernandes MD Primary Care Provider Shaikh Hernandes MD Unavailable Chinmay Manning MD Attending Provider Chinmay Manning MD Attending Provider [phone] Herb SANDOVAL-Margarette Camacho Primary Care Provider Herb SANDOVAL-C, Margarette J Attending Provider Margarette Estevez NP Unavailable Madhu Murphy MD Primary Care Provider MARGARETTE ESTEVEZ Attending Unavailable MARGARETTE ESTEVEZ Attending Unavailable ROSITA GARZA Attending Unavailabl e MARGARETTE ESTEVEZ Attending Unavailable DANYA NAJERA Attending Unavailable Mdahu Murphy MD Primary Care Provider Shaikh Hernandes MD Primary Care Provider Cecilio WAKLER, Unavailable Madhu Murphy MD Primary Care Provider Allergies Allergy ClassificationReported Allergen(s)Allergy TypeDate of OnsetReaction(s) FacilityAnti-Epileptic Agents (1 source)gabapentinDrug Ubrahnw01-27-6781UalqngioaWhite Hospital Dihydrofolate Reductase Inhibitors (antibiotic) (1 source)TrimethoprimDrug Tywauzr67-21-9675HwwtnOwkkxlwcbKettering Health – Soin Medical CenterOpioid Agonists (2 sources)HYDROmorphoneDrug Hwocykb44-60-2112izri, HivesWhite Hospitalpeanut allergenic extract (1 source)peanut allergenic extractDrug Exdnczy09-13-0576EcfyMcuwbtuqwMercy Health – The Jewish HospitalPollen (1 source)Bee pollenSubstance Dvbtnyc32-05-9402CtvttwlbzisHmosntvoi Regional Medical Centerpregabalin (1 source)pregabalinDrug Lqrjgee67-15-3462Leruwnq ReactionWhite HospitalPromethazine (1 source)PromethazineDrug Qaadkxy69-18-9634RqllQmddnrjpwMercy Health – The Jewish HospitalQuinolones (antibiotic) (1 source)CiprofloxacinDrug Adwznmp64-78-5911wboopwr, nauseaNationwide Children's Hospitalulfonamides (antibiotic) (1 source)SulfamethoxazoleDrug Sslzwro87-44-2383YagxfSxuggdwioKettering Health – Soin Medical CenterUnclassified (1 source)codeine, depakote, bactrium, sAllergy to nodqxgnpf34-08-8010VdspwlujqWhite HospitalUnclassified (5 sources)walnutsAllergy to gohzyoswi39-67-5617QghwebxbygmEoelaybdd Regional Medical CenterValproate (1 source)ValproateDrug Eiiqply42-97-7738pidsgvo, nauseaWhite Hospital (1 source)tree nut, unspecified; Translations: [TREE NUTS]Propensity to adverse reactions to drug (disorder)80-40-9199[facility] (1 source)BEE VENOM PROTEIN (HONEY BEE); Translations: [BEE VENOM PROTEIN (HONEY BEE)]Propensity to adverse reactions to drug (disorder)28-86-6721XlmkOhiohealth [facility] (20 sources)CiprofloxacinDrug Vjxviwc47-40-2478AzflyDrbfc Coast [employer] Other (11 sources)gabapentinDrug Hlftogm72-37-4772Qxsgldg, Unknown ReactionWhite Hospital (20 sources)HYDROmorphoneDrug Actbybz33-97-6739Heotkng, [facility] [employer] Other (11 sources)pregabalinDrug Ztqbkvl72-61-9129Tssrhwq, Unknown ReactionWhite HospitalComment on above:pain worse (7 sources)codeine, depakote, bactrium, sulfa, bees walnutsPropensity to adverse reactionsMiriam Hospital [employer] Other (1 source)Acetaminophen / HYDROcodoneDrug Lclflym13-20-5735Fil [facility] Repository (1 source)bee venomDrug allergy (disorder)75-79-9454Jir [facility] Repository (5 sources)CodeineDrug Ozifzqn40-68-1564YsmcpAnl [facility] Repository (1 source)HYDROmorphoneDrug Qbsrnrr91-62-7473LdgCherrington Hospital Repository (1 source)Sulfamethoxazole / TrimethoprimDrug Yzmtbcu34-83-2596Bnu [facility] Repository (1 source)ValproateDrug Byivzsu30-24-6997WojCherrington Hospital Repository (1 source)Misc-Food; Translations: [Misc-Food]Food allergy (disorder)11-02-2014 [facility] Repository (20 sources)Acetaminophen / HYDROcodoneDrug Zrhsick36-13-5520CCZF [facility] (20 sources)Bee pollenPropensity to adverse rsiktfqsx36-94-5490SzsriogauepTGNO Healthcare (20 sources)CodeineDrug Fbhjgwa20-94-6669TKLK [facility] (20 sources)ErythromycinDrug Hvrhnxw26-04-1467SFRS [facility] (20 sources)Honey bee venomPropensity to adverse ihakjdqej15-74-8520EfuryQJYR Healthcare Work Phone: (20 sources)PregabalinPropensity to adverse wihzwnjth25-95-3121MINK [facility] (20 sources)PromethazineDrug Qbvpwwe63-34-2430HvbqHPBL Healthcare (20 sources)SulfamethoxazoleAllergy to nzlpvjajr73-07-9051DbbppGTVX Healthcare (20 sources)Sulfamethoxazole / TrimethoprimDrug Qwxifxm02-18-7375JMDU [facility] (20 sources)ValproateDrug Ohwjtsw57-58-8620LPVM [facility] (9 sources)Black [place] FlavorPropensity to adverse nkulnzkoj79-87-5125CCLW [facility] (20 sources)OtherPropensity to adverse ihnewinpe26-40-3755Sczuo, Shortness of breath, SwellingCenterpoint Medical Center (4 sources)peanut allergenic extractDrug Vacgpvd52-50-7279JtspVzkehcdbzWhite Hospital (4 sources)TrimethoprimDrug Uykiimo00-03-9704AonnkBjxdbjwufWhite Hospital (4 sources)ValproateDrug Emwsnfn71-75-5419kvnkgau, nauseaWhite Hospital (20 sources)Black [place] Flavoring Agent (Non-Screening)Propensity to adverse axraitrmv46-31-5447XSNI Healthcare Medications Current Medications MedicationDrug Class(es)DatesSig (Normalized)Sig (Original)alosetron 0.5 mg oral tablet (1 source)Serotonin-3 Receptor AntagonistStart: 68-73-4412xfoc 1 tablet by mouth every twenty-four hoursAlosetron HCl 0.5 MG 1 tablet Orally daily for 30 days Jul, ActiveBiotin (3 sources)Biotin ActiveCalcium & Magnesium Carbonates (3 sources)Calcium & Magnesium Carbonates ActiveCentrum Silver 50+Women (1 source)Centrum Silver 50+Women Activecyclobenzaprine hydrochloride 10 mg oral tablet (20 sources)Muscle RelaxantStart: 29-32-6505tsor 1 tablet by mouth once daily at bedtime as neededCyclobenzaprine 10 mg tablet Active 10 MG PO Daily at bedtime as needed April 25, 2025 5:26pm Complies with drug therapyStart: 03-24-2024 End: 00-95-2404ohcq 0.5 tablet by mouth at bedtimecyclobenzaprine (Flexeril) 10 MG tablet Indications: Back spasm Take 0.5 tablets (5 mg) by mouth atbedtime 30 tablet 3 09/22/2024 ActiveStart: 12-09-2023 End: 79-33-4182wccf 1 tablet by mouth three times daily as neededCyclobenzaprine 10 mg tablet Discontinued 10 MG PO Three times daily as needed December 09, 2023 12:00am April 25, 2025 5:27pm End: 39-42-2105jiwq 5 mg by mouth three times daily as needed for muscle spasms cyclobenzaprine (Flexeril) 10 MG tablet Take 5 mg by mouth 3 (three) times a day as needed for muscle spasms. 03/24/2024 Discontinued (Dose adjustment) Elderberry preparation (3 sources)Elderberry Egzamqxyv447672 0.3 ml EPINEPHrine 1 mg/ml auto-injector (20 sources)alpha-Adrenergic Agonist, beta-Adrenergic Agonist, Catecholamine Start: 68-37-2851Xjepgiahgfg 0.3 mg/0.3 mL auto-injector Active 0.3 ML IM as needed December 09, 2023 12:00am Complies with drug therapyStart: 11-17-2023 EPINEPHrine (Epipen) 0.3 MG/0.3ML injection syringe Indications: Allergic reaction to bee sting Inject 0.3 mL (0.3 mg) as directed 1 (one) time for 1 dose use as directed for allergic reaction and then call 911 2 each 11/17/2023 ActiveEPINEPHrine (EPIPEN IJ) Inject as directed. 0 ActiveEPINEPHrine 0.3 MG/0.3ML as directed Injection Activeestradiol 1 mg oral tablet (20 sources)EstrogenStart: 12-09-2023 End: 12-88-3062beoj 1 tablet by mouth once dailyestradiol (Estrace) 1 MG tablet Indications: Hormone imbalance Take 1 tablet (1 mg) by mouth Daily 90 tablet 3 05/02/2025 04/27/2026 Activelosartan potassium 100 mg oral tablet (20 sources)Angiotensin 2 Receptor BlockerStart: 08-11-2023 End: 33-75-3335czvn 1 tablet by mouth once dailylosartan (Cozaar) 100 MG tablet Indications: Primary hypertension Take 1 tablet (100 mg) by mouth Daily 90 tablet 1 02/21/2025 05/22/2025 ActiveMagnesium (3 sources)Magnesium Activemagnesium oxide 400 mg oral tablet (20 sources)Start: 94-92-5733xqmr 1 tablet by mouth once dailyMagnesium Oxide 400 mg (241.3 mg magnesium) tablet Active 0 .ROUTE .COMPLEX February 16, 2025 10:18am TAKE 1 TABLETBY MOUTH EVERY DAY Complies with drug therapyStart: 08-24-2024 End: 24-30-2039uhic 1 tablet by mouth once dailyMagnesium Oxide 400 mg (241.3 mg magnesium) tablet Discontinued 0 .ROUTE .COMPLEX August 9:56am February 16, 2025 10:18am TAKE 1 TABLETBY MOUTH EVERY DAYStart: 17-52-8405ilml 1 tablet by mouth once dailyMagnesium Oxide 400 mg (241.3 mg magnesium) tablet Active 0 .ROUTE .COMPLEX August 24, 2024 9:56am TAKE 1 TABLETBY MOUTH EVERY DAYStart: 03-17-2024 End: 00-46-8881uhhb 1 tablet by mouth once dailymagnesium oxide (Mag-Ox) 400 (240 Mg) MG tablet Take 400 mg by mouth Daily 03/17/2024 ActiveMulti For Her 50+ (3 sources)Multi For Her 50+ Activemupirocin 0.02 mg/mg topical ointment (1 source)RNA Synthetase Inhibitor AntibacterialStart: 07-25-3898Hvhqstzsl 2 % 1 application Externally Twice a day for 5 day(s) Jun, Activeomeprazole 20 mg delayed release oral capsule (20 sources)Proton Pump InhibitorStart: 18-59-6568uqzk 1 capsule by mouth once dailyOmeprazole 20 mg capsule,delayed release(DR/EC) Active 20 MG PO Daily December 09, 2023 12:00am Complies with drug therapyondansetron 4 mg disintegrating oral tablet (1 source)Serotonin-3 Receptor AntagonistStart: 01-13-2025 End: 82-60-6020qugk 1 tablet by mouth every eight hours for nauseaondansetron ODT (Zofran-ODT) 4 MG disintegrating tablet Indications: Nausea and vomiting, unspecified vomiting type Take 1 tablet (4 mg) by mouth every 8 (eight) hours if needed for vomiting or nausea for up to 5 days 15 tablet 01/13/2025 01/18/2025 Uvdoxr46 hr paliperidone 3 mg extended release oral tablet (20 sources)Atypical AntipsychoticStart: 12-09-2023 End: 41-73-5108ptzf 1 tablet by mouth once daily in the morningPaliperidone 3 mg tablet extended release 24hr Active 3 MG PO Every morning August 17, 2024 4:56pm Complies with drug therapytake 1 tablet by mouth every twenty-four hours in the morningpaliperidone (Invega) 3 MG 24 hr tablet Take 3 mg by mouth in the morning. Do not crush, chew, or split. . Activetake 1 tablet by mouth every twenty-four hoursPaliperidone ER 6 MG 1 tablet in the morning Orally Once a day Activetake 1 tablet by mouth every twenty-four hoursPaliperidone ER 3 MG 1 tablet in the morning Orally Once a day Activepramoxine hydrochloride 10 mg/ml rectal foam (1 source)Start: 29-20-5537Wcshssvmyd 1 % as directed Rectal PRN for 30 day(s) Jun, Activetopiramate 100 mg oral tablet (20 sources)Start: 09-23-2017 End: 94-95-5647dhid 1 tablet by mouth once dailytopiramate (Topamax) 100 MG tablet Indications: Migraine without aura and without status migrainosus, not intractable , Bipolar 2 disorder (HCC) Take 1 tablet (100 mg) by mouth Daily 90 tablet 1 02/21/2025 05/22/2025 ActiveTopamax Activetake 1 capsule by mouth three times dailyTopiramate 100 MG 1 capsule Oral TID for 30 ActivetraZODone hydrochloride 100 mg oral tablet (20 sources)Serotonin Reuptake InhibitorStart: 70-61-8714jryp 2 tablets by mouth once daily at bedtimeTrazodone 100 mg tablet Active 200 MG PO Daily at bedtime December 09, 2023 12:00am Complies with drugtherapyStart: 61-56-5462vdmn 200 mg by mouth once daily at bedtimeTrazodone Active 200 MG PO Daily at bedtime December 09, 2023 12:00amStart: 09-23-2017 End: 53-80-6948Cpgigpmvg 150 mg tablet Discontinued 50 MG PO Bedtime September 23, 2017 12:00am December 09, 2023 3:28pmStart: 09-23-2017 End: 82-54-6330iblb 50 mg by mouth at bedtimeTrazodone Discontinued 50 MG PO Bedtime September 23, 2017 12:00am December 09, 2023 3:28pmtake 1-2 tablets by mouth once dailytraZODone HCl 50 MG 1-2 TABLETS Orally Once a day ActiveTurmeric extract (3 sources)Turmeric Activevarenicline 1 mg oral tablet (18 sources)Partial Cholinergic Nicotinic AgonistStart: 12-22-2024 End: 75-84-0037zmnv 1 tablet by mouth in the morningvarenicline (Chantix) 1 MG tablet Indications: Cigarette nicotine dependence without complication Take 1 tablet (1 mg) by mouth in the morning and 1 tablet (1 mg) before bedtime. Take with full glassof water. 60 tablet 2 02/21/2025 ActiveStart: 12-22-2024 End: 87-78-4104Txxlukxbypk Tartrate, Starter, 0.5 MG X 11 & 1 MG X 42 tablet therapy pack Indications: Cigarette nicotine dependence without complication Take 1 Package by mouth Daily Use as directed 42 each 12/22/2024 02/09/2025 Discontinued (Therapy completed)Start: 37-02-2741Pbimdjdnpvp Tartrate, Starter, 0.5 MG X 11 & 1 MG X 42 tablet therapy pack Indications: Cigarette nicotine dependence without complication Take 1 Package by mouth Daily Use as directed 42 each 12/22/2024 Active Completed/Discontinued Medications MedicationDrug Class(es)DatesSig (Normalized)Sig (Original)alendronic acid 70 mg / cholecalciferol 5600 unt oral tablet (20 sources)Bisphosphonate, Vitamin DStart: 04-22-2025 End: 76-95-0192wbiv 1 tablet by mouth every weekAlendronate-Vitamin D3 70 mg- 5,600 unit tablet Discontinued 1 TAB PO every week April 222:00am April 25, 2025 5:26pmStart: 05-27-2024 End: 55-32-7666syyt 70-5600 tablets by mouth in the morningalendronate- cholecalciferol (Fosamax Plus D) 70-5600 MG-UNIT tablet Indications: Osteopenia, unspecified location Take 1 tablet by mouth every 7 (seven) days Take in the morning with a full glass of water, on an empty stomach, and do not take anything else by mouth or lie down for the next 30 min. 4 tablet 11 05/27/2024 05/27/2025 ActivebusPIRone hydrochloride 10 mg oral tablet (7 sources)Start: 07-13-2020 End: 75-49-6303Frabkykzb 10 mg tablet Discontinued 10 MG PO As Directed July 13, 2020 1:00am December 09, 2023 3:31pmBuSpar Activetake 1 tablet by mouth twice dailyBuSpar 10 MG 1 tablet Orally Twice a day Activecitalopram 20 mg oral tablet (7 sources)Serotonin Reuptake InhibitorStart: 07-13-2020 End: 77-78-3788Ymxxzfcxok 20 mg tablet Discontinued 20 MG PO As Directed July 13, 2020 1:00December 0843:31pmCitalopram Hydrobromide Active dicyclomine hydrochloride 10 mg oral capsule (12 sources)AnticholinergicStart: 08-16-2019 End: 74-99-2486qtby 1 capsule by mouth three times dailyDicyclomine 10 mg Capsule Discontinued 10 MG PO Three times daily August 16, 2019 1:00am December 09, 2023 3:31pmStart: 26-63-1966nzkj 1 tablet by mouth every twenty-four hours Dicyclomine HCl 20 mg 1 tablet Orally once a day for 30 days Apr, Active take 1 tablet by mouth every eight hoursDicyclomine HCl 20 MG 1 tablet Orally Three times a day Active1 ml erenumab-aooe 70 mg/ml auto-injector (6 sources)Start: 07-13-2020 End: 22-81-5041Pwyvapec-Aooe (Aimovig Autoinjector) 70 mg/mL auto-injector Discontinued 70 MG SUBCUT As Directed July 13, 2020 1:00am December 09, 2023 3:31pminject 70 mg by subcutaneous injection every monthAimovig 70 MG/ML as directed Subcutaneous ONCE A MONTH Activeestrogens, conjugated (penitentiary) 0.625 mg oral tablet (17 sources)EstrogenStart: 07-13-2020 End: 61-94-8322knzn 1 tablet by mouth once dailyConjugated Estrogens (Premarin) 0.625 mg tablet Discontinued 0.625 MG PO Daily July 13, 2020 1:00am December 09, 2023 3:31pmStart: 09-23-2017 End: 10-95-1788eqyb 1 tablet by mouth once dailyConjugated Estrogens 0.625 mg tablet Discontinued 0.625 MG PO Daily September 23, 2017 12:00am August 16, 2019 7:38am24 hr nicotine 0.292 mg/hr transdermal system (20 sources)Cholinergic Nicotinic AgonistStart: 06-23-2024 End: 48-12-7288leoxebic (Nicoderm, Step 3) 7 MG/24HR patch Indications: Tobacco dependency Place 1 patch over 24 hours on the skin 1 (one) time each day at the same time 14 patch 06/23/2024 02/09/2025 Discontinued (Therapy completed)Start: 03-24-2024 End: 89-96-7840jolqxhqc polacrilex ([facility] Nicotine Polacrilex) 4 MG lozenge Indications: Tobacco dependency Dissolve1 lozenge (4 mg) in the mouth every 2 (two) hours if needed for smoking cessation 100 lozenge 03/24/2024 06/23/2024 Discontinued (Med list cleanup)Start: 94-97-3535Nmlvjbma Active TRANSDERML March 17, 2024 12:00amStart: 02-12-2024 End: 56-78-3584puamt 1 dose transdermal route every twenty-four hoursNicotine 21 mg/24 hr patch 24 hour Discontinued TRANSDERML March 17, 2024 12:00am April 25, 2025 5:26pmStart: 02-12-2024 End: 82-85-3807civmu 1 dose transdermal route every twenty-four hoursnicotine (Nicoderm CQ) 14 MG/24HR patch Indications: Tobacco dependency Place 1 patch over 24 hourson the skin 1 (one) time each day at the same time Use after patient has used 21 mg dose. 14 patch 06/23/2024 09/22/2024 Discontinued (Therapy completed)sertraline 100 mg oral tablet (5 sources)Serotonin Reuptake InhibitorStart: 09-23-2017 End: 57-56-3402cjhx 1 tablet by mouth once dailySertraline 100 mg tablet Discontinued 100 MG PO Daily September 23, 2017 12:00am July 13, 2020 1:21pm sucralfate 1000 mg oral tablet (9 sources)Aluminum ComplexStart: 09-23-2017 End: 31-52-0670gsaw 1 tablet by mouth four times dailySucralfate 1 gram tablet Discontinued 1 TAB PO Four times daily September 23, 2017 12:00am December 09, 2023 3:31pmStart: 09-23-2017 End: 08-67-5585kdak 1 tablet by mouth four times dailySucralfate Discontinued 1 TAB PO Four times daily September 23, 2017 12:00am December 09, 2023 3:31pmCarafate Activetake 1 capsule by mouth twice dailySucralfate 1 GM 1 capsule Oral twice times a day for 30 days ActivetiZANidine 4 mg oral tablet (6 sources)Central alpha-2 Adrenergic AgonistStart: 07-13-2020 End: 11-76-7875Tpnlxflvip 4 mg tablet Discontinued 4 MG PO As Directed July 13, 2020 1:00am December 09, 2023 3:31pmtiZANidine HCl Active Problems Active Problems Problem ClassificationProblemDateDocumented DateEpisodic/ChronicAbdominal pain (14 sources)Right upper quadrant pain; Translations: [Right upper quadrant pain] EpisodicAnal and rectal conditions (7 sources)Rectal pain; Translations: [Other specified diseases of anus and rectum]EpisodicAnxiety disorders (20 sources)Anxiety; Translations: [Anxiety disorder, unspecified]Onset: 394188-69-3482GcdokraJxspmh (6 sources)Asthma; Translations: [Unspecified asthma, uncomplicated]10-10-2021 ChronicChronic kidney disease (20 sources)Chronic kidney disease stage 2; Translations: [Chronic kidney disease, stage 2 (mild)]Onset: 06-16-2023 Resolved: 049234-01-1938DdlpcqaAqggjjkdd of lipid metabolism (20 sources)Mixed hyperlipidemia; Translations: [Mixed hyperlipidemia]Onset: 589176-79-0333XhwyjekQ Codes: Fall (5 sources)Fall (on) (from) other stairs and steps, initial encounter; Translations: [Fall down stairs]71-22-6558WmnktfecKxneqnwxob disorders (11 sources)Gastroesophageal reflux disease; Translations: [Gastro-esophageal reflux disease without esophagitis]Onset: 10-16-2021 Resolved: 03-22-5963ZzxzpcrVebeuzydx hypertension (20 sources)Essential hypertension; Translations: [Essential (primary) hypertension]Onset: 830370-16-5708OkimicgFlipbhxnj and duodenitis (7 sources)Gastritis; Translations: [Gastritis, unspecified, without bleeding] EpisodicGastrointestinal hemorrhage (20 sources)Dark stools; Translations: [Melena]61-22-5672XtwzbfkpPrqcjrfo; including migraine (20 sources)Migraine without aura, not refractory ; Translations: [Migraine without aura, not intractable, without status migrainosus]Onset: 06-16-2023 14-84-0409MdjmzzqOvzykctp; including migraine (7 sources)Headache; Translations: [Headache]EpisodicHemorrhoids (7 sources)Hemorrhoids; Translations: [Unspecified hemorrhoids]Episodic Hypertension with complications and secondary hypertension (9 sources)Hypertensive renal disease; Translations: [Hypertensive chronic kidney disease with stage 1 throughstage 4 chronic kidney disease, or unspecified chronic kidney disease]92-77-2365PuadnbjAnczpkkgsb infection (14 sources)Clostridial enteric disease; Translations: [Enterocolitis due to Clostridium difficile, not specified as recurrent]EpisodicMalaise and fatigue (14 sources)Fatigue; Translations: [Other fatigue]EpisodicMood disorders (20 sources)Bipolar II disorder; Translations: [Bipolar II disorder]Onset: 11-17-2023 Resolved: 733491-68-7970YbziwyiGornggljpbxbl gastroenteritis (14 sources)Microscopic colitis; Translations: [Other specified noninfective gastroenteritis and colitis]EpisodicNonspecific chest pain (5 sources)Atypical chest pain; Translations: [Other chest pain]10-10-2021 EpisodicOther and unspecified benign neoplasm (7 sources)Lipoma (clinical); Translations: [Benign lipomatous neoplasm, unspecified]EpisodicOther bone disease and musculoskeletal deformities (1 source)Osteopenia; Translations: [Other specified disorders of bone density and structure, unspecified site]46-25-7949WasbwvkmHpiuz diseases of kidney and ureters (5 sources)Kidney lesion; Translations: [Disorder of kidney and ureter, unspecified]74-02-8513VqqajbxnElzdf diseases of kidney and ureters (4 sources)Disorder of kidney and ureter, unspecified; Translations: [Unspecified disorder of kidney and ureter]84-97-2423TjxpzjpwYnevg endocrine disorders (4 sources)Disorder of endocrine system; Translations: [Endocrine disorder, unspecified]76-18-6479IfcmcittGbtfu gastrointestinal disorders (7 sources)Irritable bowel syndrome with diarrhea; Translations: [Irritable bowel syndrome with diarrhea]ChronicOther gastrointestinal disorders (7 sources)Heartburn; Translations: [Heartburn]EpisodicOther gastrointestinal disorders (7 sources)Swollen abdomen; Translations: [Abdominal distension (gaseous)] EpisodicOther gastrointestinal disorders (14 sources)Diarrhea; Translations: [Diarrhea, unspecified]EpisodicOther gastrointestinal disorders (14 sources)Constipation; Translations: [Constipation, unspecified]EpisodicOther liver diseases (7 sources)Increased creatine kinase level; Translations: [Abnormal levels of other serum enzymes]EpisodicOther nervous system disorders (7 sources)Burning sensation; Translations: [Other disturbances of skin sensation]EpisodicOther nutritional; endocrine; and metabolic disorders (4 sources)Hypomagnesemia; Translations: [Hypomagnesemia]95-61-3551QevpvlvBnywn nutritional; endocrine; and metabolic disorders (3 sources)Hypomagnesemia; Translations: [Disorders of magnesium metabolism] 81-89-3931NdqthneZgduo nutritional; endocrine; and metabolic disorders (7 sources)Weight loss; Translations: [Abnormal weight loss]EpisodicOther nutritional; endocrine; and metabolic disorders (12 sources)Body mass index 25-29 - overweight; Translations: [Overweight]Onset: 206583-47-0257YwaioewgIttfs skin disorders (7 sources)Rash and other nonspecific skin eruption; Translations: [Rash] EpisodicRegional enteritis and ulcerative colitis (7 sources)Pseudopolyposis of colon; Translations: [Inflammatory polyps of colon without complications]ChronicResidual codes; unclassified (2 sources)Postmenopausal state; Translations: [Asymptomatic menopausal state] 11-38-2843LfnfxbklNbowmryiz and history of mental health and substance abuse codes (2 sources)Ex-smoker; Translations: [Personal history of nicotine dependence] 73-29-3153PkxsoelcFuypqadcqrd; intervertebral disc disorders; other back problems (20 sources)Spasm of back muscles; Translations: [Muscle spasm of back] 65-98-6489RfdzbnmeEubhakf and strains (6 sources)Sprain of other ligament of left ankle, initial encounter; Translations: [Sprain of left ankle]Onset: 07-04-2021 Resolved: 21-44-1694TcmkalyoIcrqsgkzj-related disorders (20 sources)Tobacco dependence syndrome; Translations: [Nicotine dependence, unspecified, uncomplicated]Onset: 06-16-2023 Resolved: 637971-23-8493HykdijpAvfgnbtdnxr injury; contusion (10 sources)Contusion of lower back; Translations: [Contusion of lower back and pelvis, initial encounter]70-09-2107IrhixltnUqifxwfweswz (3 sources)LOW BACK PAIN, UNSPECIFIED; Translations: [LOW BACK PAIN, UNSPECIFIED]Onset: 06-12-2022 Past or Other Problems Problem ClassificationProblemDateDocumented DateEpisodic/ChronicAllergic reactions (20 sources)Allergy to nut; Translations: [Allergy to other foods]Onset: 737184-93-7475WkfvkxrlHbjesy and vomiting (20 sources)Vomiting; Translations: [Vomiting, unspecified]Onset: 01-13-2025 04-98-8592AecnrkmzTeun wounds of extremities (1 source)Laceration without foreign body of left middle finger without damage to nail, initial encounterOnset: 07-12-2021 Resolved: 70-70-9658DirvexpeYcdui circulatory disease (4 sources)Other specified symptoms and signs involving the circulatory and respiratory systems; Translations:[OTH SPEC SX SIGNS INVLV CIRC RS]Onset: 46-14-3535HwokwygdNmwoh gastrointestinal disorders (2 sources)Diarrhea, unspecifiedOnset: 10-16-2021 Resolved: 05-18-8924IgyylvkfVtbll nutritional; endocrine; and metabolic disorders (20 sources)Obesity caused by energy imbalance; Translations: [Class 1 obesity due to excess calories without serious comorbidity with body mass index (BMI) of 33.0 to 33.9 in adult]Onset: 02-12-2024 Resolved: 125808-65-2985AohzyopJitmd screening for suspected conditions (not mental disorders or infectious disease) (20 sources)Ultrasonography of kidney abnormal; Translations: [Abnormal radiologic findings on diagnostic imaging of unspecified kidney]Onset: 08-18-2023 Resolved: 830736-75-9234AnvdymhrFqfvcgautkoj (1 source)LOW BACK PAIN, UNSPECIFIED; Translations: [LOW BACK PAIN, UNSPECIFIED] Onset: 06-07-2022 Results Test NameValueInterpretationReference RangeFacilityIGP,APTIMA HPV,AGE GDLNon 17-96-5828UBK GDLN ACOG TESTINGNote.NOMS HealthcareComment on above:TESTS RESULT FLAG UNITS REF RANGE LAB Clinician Provided Cytology Information Source.............Vagina No. of containers..01 ThinPrep Vial Age Algo ACOG Marisol... 3065 FLAG LEGEND: L-Low Normal,H-High Normal,LL-Alert Low,HH-Alert High <-Panic Low,>-Panic High,A-Abnormal,AA-Critical Abnormal Performed at: 01 =[address] [facility] [address] Coby Russell MD, HPV APTIMANegativeNegativeNOMS HealthcareComment on above:This nucleic acid amplification test detects fourteen high- risk HPV types (16,18,31,33,35,39,45,51,52,56,58,59,66,68) without differentiation. Performed at: =[address] [id number] Quality Control Industrial Engineer: Coby Russell MD, Phone: [phone] Performed at: [address] [id number] Quality Control Industrial Engineer: Coby Russell MD, Phone: [phone] IGP, APTIMA HPV, RFX 16/18,45Note.Centerpoint Medical CenterComment on above:TESTS RESULT FLAG UNITS REF RANGE LAB DIAGNOSIS: 02 NEGATIVE FOR INTRAEPITHELIAL LESION OR MALIGNANCY. Specimen adequacy: 02 Satisfactory for evaluation. Performed by: Deena Newby, Supervisory Terrazzo Finisher Helper (ASCP) . 02 Note: Note 02 The [...] liquid based ThinPrep(R) pap test was interpreted using the Smartpay(R) Recovers(TM) Cervical Algorithm whole slide imaging system. HPV Genotype Reflex Note 02 Criteria not met, HPV Genotype not performed. FLAG LEGEND: L-Low Normal,H-High Normal,LL-Alert Low,HH-Alert High <-Panic Low,>-Panic High,A-Abnormal,AA-Critical Abnormal Performed at: 02 [address] [facility] [address] [place] [address] Coby Russell MD, SPATULA-ALONE VAGINA CLINISYNCNONV HealthcareALL URINALYSISon 28-76-8692BRAGOLFRY URINENegative NEGATIVENONV HealthcareBLOOD URINETRACE-INEGATIVENOMS HealthcareClarity (U)CLEAR CLEARNOMS HealthcareColor (U)YELLOWYELLOWNOMS HealthcareGLUCOSE URINE UANegative NEGATIVE mg/dLNONV HealthcareKetones Ql (U)NegativeNEGATIVE mg/dLSANPETE VALLEY HOSPITAL Healthcare Leukocyte esterase Test strip Ql (U)NegativeNEGATIVENOMS HealthcareNITRITE URINE NegativeNEGATIVENONV HealthcarepH (U)6.0 [pH]5.0 - 9.0NOMS HealthcarePROTEIN URINENegativeNEG/TRACE mg/dLNONV HealthcareSPECIFIC GRAVITY URINE1.0151.005 - 1.025NONV HealthcareUROBILINOGEN URINE0.2 EU/dL0.2 - 1.0 EU/dLNONV Healthcare Erythrocyte distribution width Auto (RBC) [Ratio]on 58-57-7930Uqjaowcysze distribution width (RBC) [Ratio]Erythrocyte distribution width [Ratio] by Automated count11.0-15.0White HospitalEstimated glomerular filtration rate (GFR) non- Americanon 95-41-6641JRC/1.73 sq M.predicted among non-blacks MDRD (S/P/Bld) [Vol rate/Area]Estimated glomerular filtration rate (GFR) non- AmericanLow>=60 mL/min/1.73m [address] [place] [address] CBC WITH PLATELET NO DIFFERENTIALon 87-07-5047Hjdbbdhohmw distribution width (RBC) [Ratio]12.5 %11.0 - 15.0 %[facility] HealthcareHematocrit (Bld) [Volume fraction]46.7 %36.0 - 48.0 %[facility] HealthcareHemoglobin (Bld) [Mass/Vol]15.7 g/dL12.0 - 16.0 g/dLSANPETE VALLEY HOSPITAL HealthcareInterpretation and review of laboratory resultsAbnormalNOMS HealthcareMCH (RBC) [Entitic mass]30.6 pg26.7 - 34.0 pgCedar County Memorial HospitalHC (RBC) [Mass/Vol]33.6 g/dL29.9 - 35.2 g/dLCedar County Memorial HospitalV (RBC) [Entitic vol]91 fL81.0 - 99.0 fLCenterpoint Medical CenterPlatelet mean volume (Bld) [Entitic vol]9.2 fLLow9.5 - 13.5 fLKindred Hospital YDR720WHOJEllis Fischel Cancer Center RBC5.13[facility] WBC7.7Centerpoint Medical CenterHematocrit Auto (Bld) [Volume fraction]on 80-25-5396Mkspshxaun (Bld) [Volume fraction]Hematocrit [Volume Fraction] of Blood by Automated count36.0-48.0White HospitalHemoglobin [Mass/volume] in Bloodon 15-90-6423Vgpyfnaxuf (Bld) [Mass/Vol] Hemoglobin [Mass/volume] in Blood12.0-16.0[facility] Laboratory - Chemistry and Chemistry - challengeon 50-16-4059Iojdihz [Mass/Vol] 3.8 g/dL3.4-5.0White HospitalCalcium [Mass/Vol]8.9 mg/dL 8.5-10.1FBellevue HospitalChloride [Moles/Vol]105 mmol/L98-107 White HospitalCO2 [Moles/Vol]20.7 mmol/LLow21.0-32.0White HospitalCreatinine [Mass/Vol]1.41 mg/dLHigh0.55-1.02White HospitalGFR/1.73 sq M.predicted MDRD (S/P/Bld) [Vol rate/Area]46 mL/min/{1.73_m2}Low>=60 mL/min/1.73m 2FBellevue HospitalGlucose [Mass/Vol]110 mg/gWBnjk90-830JgpntjtdaWhite HospitalMagnesium [Mass/Vol]1.9 mg/dL1.8-2.4FBellevue HospitalPotassium [Moles/Vol] 3.9 mmol/L3.5-5.1FAultman Orrville Hospitalodium [Moles/Vol]141 mmol/L 136-145White HospitalUrate [Mass/Vol]3.6 mg/dL2.6-6.0 White HospitalUrea nitrogen [Mass/Vol]26.0 mg/dLHigh7.0-18.0 White HospitalUrea nitrogen/Creatinine [Mass ratio]18.4 mg/mg White HospitalBilirubin Ql (U)NegativeNEGATIVEWhite HospitalGlucose (U) [Mass/Vol]NegativeNEGATIVEWhite HospitalKetones Ql (U)NegativeNEGATIVEWhite HospitalpH (U)6.0 [pH]5.0-9.0[facility]'s Hospitalpecific gravity (U) [Rel density]1.0151.005-1.025White HospitalUrobilinogen Qn (U)0.2 {Jimmy'U}/dL0.2-1.0White HospitalLaboratory - Specimen informationon 77-07-3515Ynsrylqaca (U)CLEARCLEARFBellevue HospitalColor (U)YELLOWYELLOWWhite HospitalLaboratory - Urinalysison 76-79-4914Oshlozhnn esterase Test strip Ql (U)NegativeNEGATIVE White HospitalNitrite Ql (U)NegativeNEGATIVEWhite HospitalProtein (U) [Mass/Vol]24.8 mg/dLHigh<=11.9White HospitalProtein Ql (U)NegativeNEG/TRACEWhite HospitalLeukocytes [#/volume] corrected for nucleated erythrocytes in Blood by Automated counon 74-58-6923NAW corrected for nucl RBC Auto (Bld) [#/Vol] Leukocytes [#/volume] corrected for nucleated erythrocytes in Blood by Automated coun4.0-11.0White HospitalMCH Auto (RBC) [Entitic mass]on 54-09-9454JDV (RBC) [Entitic mass]MCH [Entitic mass] by Automated count26.7-34.0 White HospitalMCHC Auto (RBC) [Mass/Vol]on 68-49-3137LXZR (RBC) [Mass/Vol]MCHC [Mass/volume] by Automated count29.9-35.2FBellevue HospitalMCV Auto (RBC) [Entitic vol]on 17-82-3010GJC (RBC) [Entitic vol] MCV [Entitic volume] by Automated count81.0-99.0White HospitalMicroalbumin [Mass/volume] in Urineon 18-47-8932Lwgduae DL <= 20 mg/L (U) [Mass/Vol]Microalbumin [Mass/volume] in Urine<=30.0White HospitalNo Panel Informationon 02-31-8587IEKMKOFYASTJQ Trabfcvzbd20-Ducmizu Vitamin D Total54.5 ng/mLWhite HospitalComment on above:<20 ng/mL Vit D apgngvjsp77-<30 ng/mL Vit D lquuqlsfqcft22-522 ng/mL Vit D sufficient>100 ng/mL Potential ToxicityParathyroid Hormone (Intact)25 pg/mL15-65 White HospitalComment on above:Performed at: [facility] [address] [id number] Director: Davion Noonan PhD, Phone: [phone] Level3.4 mg/dL2.6-4.7FBellevue HospitalUrine Occult BloodTRACE-INEGATIVEWhite HospitalUrine Random Mtklbqhoom518.31 mg/dL20.00-300.00[facility] Platelet mean volume Auto (Bld) [Entitic vol]on 64-36-6679Jiobsums mean volume (Bld) [Entitic vol]Platelet mean volume [Entitic volume] in Blood by Automated countLow9.5-13.5FBellevue HospitalPlatelets Auto (Bld) [#/Vol]on 89-35-5059Qmsulwwgb (Bld) [#/Vol]Platelets [#/volume] in Blood by Automated xtnzy866-403NhukanaqeWhite HospitalRBC Auto (Bld) [#/Vol]on 12-14-2024 RBC (Bld) [#/Vol]Erythrocytes [#/volume] in Blood by Automated count4.20-5.40 [facility] Hospitalerum or plasma anion gap determinationon 88-24-8473Bvxbj gap [Moles/Vol]Serum or plasma anion gap determinationFirelands Regional Medical CenterUrine microalbumin/creatinine mass ratioon 12-14-2024 Albumin/Creatinine DL <= 20 mg/L (U) [Mass ratio]Urine microalbumin/creatinine mass ratio0.0-29.9White HospitalComment on above:NO MICROALBUMINURIA 0-29 MG/GCLINICAL MICROALBUMINURIA 30-300 MG/GMACROALBUMINURIA >300 MG/GUrine protein/creatinine ratioon 87-14-5542Axruchd/Creatinine (U) [Ratio]Urine protein/creatinine ratioWhite Hospital Erythrocyte distribution width Auto (RBC) [Ratio]on 56-48-5926Rklrhjxrfmo distribution width (RBC) [Ratio]Erythrocyte distribution width [Ratio] by Automated count11.0-15.0White HospitalEstimated glomerular filtration rate (GFR) non- Americanon 75-02-8976WRE/1.73 sq M.predicted among non-blacks MDRD (S/P/Bld) [Vol rate/Area]Estimated glomerular filtration rate (GFR) non- AmericanLow>=60 mL/min/1.73m 2FBellevue HospitalHematocrit Auto (Bld) [Volume fraction]on 12-32-5729Znuzobwski (Bld) [Volume fraction]Hematocrit [Volume Fraction] of Blood by Automated count 36.0-48.0White HospitalHemoglobin [Mass/volume] in Bloodon 19-85-2898Lvwhjbxysu (Bld) [Mass/Vol]Hemoglobin [Mass/volume] in Blood12.0-16.0 White HospitalLaboratory - Chemistry and Chemistry - challengeon 74-10-6987Kpbtccbvd Ql (U)NegativeNEGATIVEWhite HospitalGlucose (U) [Mass/Vol]NegativeNEGATIVEWhite Hospital Ketones Ql (U)NegativeNEGATIVEWhite HospitalpH (U)6.0 [pH] 5.0-9.0[facility] Hospitalpecific gravity (U) [Rel density]1.015 1.005-1.025White HospitalUrobilinogen Qn (U)0.2 {Jimmy'U}/dL0.2-1.0White HospitalAlbumin [Mass/Vol]3.6 g/dL 3.4-5.0White HospitalCalcium [Mass/Vol]8.8 mg/dL8.5-10.1 White HospitalChloride [Moles/Vol]105 mmol/C44-453ZocwhafmcWhite HospitalCO2 [Moles/Vol]26.0 mmol/L21.0-32.0White HospitalCreatinine [Mass/Vol]1.69 mg/dLHigh0.55-1.02White HospitalGFR/1.73 sq M.predicted MDRD (S/P/Bld) [Vol rate/Area]37 mL/min/{1.73_m2}Low>=60 mL/min/1.73m 2FBellevue HospitalGlucose [Mass/Vol]105 mg/qE96-475VtdufpkawWhite HospitalMagnesium [Mass/Vol] 1.8 mg/dL1.8-2.4FBellevue HospitalPotassium [Moles/Vol]3.8 mmol/L 3.5-5.1FAultman Orrville Hospitalodium [Moles/Vol]141 mmol/Y020-716 White HospitalUrate [Mass/Vol]4.4 mg/dL2.6-6.0White HospitalUrea nitrogen [Mass/Vol]27.0 mg/dLHigh7.0-18.0White HospitalUrea nitrogen/Creatinine [Mass ratio]16.0 mg/mgWhite HospitalLaboratory - Specimen informationon 79-88-4790Aasaozzzuy (U)CLEARCLEARFBellevue HospitalColor (U)YELLOWYELLOWWhite HospitalLaboratory - Urinalysison 11-24-8308Xnrtyrmqy esterase Test strip Ql (U)NegativeNEGATIVEWhite HospitalNitrite Ql (U) NegativeNEGATIVEWhite HospitalProtein (U) [Mass/Vol]20.7 mg/dLHigh<=11.9White HospitalProtein Ql (U)NegativeNEG/TRACE White HospitalLeukocytes [#/volume] corrected for nucleated erythrocytes in Blood by Automated counon 01-26-9863QFK corrected for nucl RBC Auto (Bld) [#/Vol]Leukocytes [#/volume] corrected for nucleated erythrocytes in Blood by Automated coun4.0-11.0[facility] HospitalH Auto (RBC) [Entitic mass]on 64-76-0903KXO (RBC) [Entitic mass]MCH [Entitic mass] by Automated count26.7-34.0[facility] HospitalHC Auto (RBC) [Mass/Vol]on 92-55-2907HEZC (RBC) [Mass/Vol]MCHC [Mass/volume] by Automated count29.9-35.2FAccess Hospital DaytonV Auto (RBC) [Entitic vol]on 56-20-1437WLN (RBC) [Entitic vol]MCV [Entitic volume] by Automated count 81.0-99.0White HospitalMicroalbumin [Mass/volume] in Urineon 03-88-0226Bgiorjx DL <= 20 mg/L (U) [Mass/Vol]Microalbumin [Mass/volume] in Urine<=30.0White HospitalNo Panel Informationon 08-07-2024 Urine Occult BloodTRACE-LNEGATIVEWhite HospitalUrine Random Iqljiwaxze787.22 mg/dL20.00-300.00[facility] Hospital25-Hydroxy Vitamin D Total45.1 ng/mLWhite HospitalComment on above:<20 ng/mL Vit D mddyaafrk97-<30 ng/mL Vit D bkicqsezxrhq07-205 ng/mL Vit D sufficient>100 ng/mL Potential ToxicityParathyroid Hormone (Intact)30 pg/mL15-65 White HospitalComment on above:Performed at: [facility] [address] [id number] Director: Davion Noonan PhD, Phone: [phone] Level3.7 mg/dL2.6-4.7FBellevue HospitalPlatelet mean volume Auto (Bld) [Entitic vol]on 64-34-9890Zjrlmxzn mean volume (Bld) [Entitic vol]Platelet mean volume [Entitic volume] in Blood by Automated countLow9.5-13.5FBellevue HospitalPlatelets Auto (Bld) [#/Vol]on 50-35-7012Qqpeaftla (Bld) [#/Vol]Platelets [#/volume] in Blood by Automated lftac299-888FrenbwapbWhite HospitalRBC Auto (Bld) [#/Vol]on 91-84-1450QAW (Bld) [#/Vol]Erythrocytes [#/volume] in Blood by Automated count 4.20-5.40[facility] Children's Hospitalerum or plasma anion gap determinationon 32-21-4219Vfixk gap [Moles/Vol]Serum or plasma anion gap determinationWhite HospitalUrine microalbumin/creatinine mass ratioon 38-39-8240Ltoamze/Creatinine DL <= 20 mg/L (U) [Mass ratio]Urine microalbumin/creatinine mass ratio0.0-29.9[facility] Comment on above:NO MICROALBUMINURIA 0-29 MG/GCLINICAL MICROALBUMINURIA 30-300 MG/GMACROALBUMINURIA >300 MG/GUrine protein/creatinine ratioon 08-07-2024 Protein/Creatinine (U) [Ratio]Urine protein/creatinine ratioWhite HospitalXR DEXA AXIAL SKELETONon 87-50-2433[address] [address] XRay Report Signed Patient: МАРИЯ LAY MR#: [id number] : 1965 Acct:[id number] Age/Sex: 58 / F ADM Date: 05/14/24 Loc: MAMMO Attending Dr: Danya Najera Ordering Physician: Danya Najera Date of Service: 05/14/24 Procedure(s): XR DEXA axial skeleton Accession Number(s): [id number] cc: Danya Najera; Physician,Non-Staff M.DEliceo The [address] [address] Patient Name: МАРИЯ LAY MRN: [id number] date: 1965 Sex: F Assigned Patient Location: MAMMO Current Patient Location: Accession/Order Number: [id number] Exam Date: 05/14/2024 11:10 Report Date: 05/15/2024 [...] prevention and treatment of osteoporosis. Osteoporos Int. 2021;33(10):4321-2043. doi: 10.1007/y03750-945-12845-k. Epub 2021Nov 08. Erratum in: Osteoporos Int. 2021Feb 07;: PMID: 51940582; PMCID: [id number]. Electronically authenticated by: JAY MARTINEZ Date: 05/15/2024 06:10 Dictated By: Jay Martinez M.D. Signed By: 05/15/24611 DD/ 9 TD/TT: Grants Officer:TBHRadiology, Radiologist, - 05/15/2024 [place] [address] XRay Report Signed Patient: МАРИЯ LAY MR#: [id number] : 1965 Acct:[id number] Age/Sex: 58 / F ADM Date: 05/14/24 Loc: [facility] Attending Dr: Danya Najera Ordering Physician: Danya Najera Date of Service: 05/14/24 Procedure(s): XR DEXA axial skeleton Accession Number(s): [id number] cc: Danya Najera; Physician,Non-Staff Jose Carlos The [place] [id number] Patient Name: МАРИЯ LAY MRN: [id number] date: 1965 Sex: F Assigned Patient Location: [facility] Current Patient Location: Accession/Order Number: [id number] Exam Date: 05/14/2024 11:10 Report Date: 05/15/2024 [...] prevention and treatment of osteoporosis. Osteoporos Int. 2021;33(10):6805-6899. doi: 10.1007/p21155-610-20050-f. Epub 2021Nov 08. Erratum in: Osteoporos Int. 2021Feb 07;: PMID: 22609032; PMCID: [id number]. Electronically authenticated by: JAY MARTINEZ Date: 05/15/2024 06:10 Dictated By: Jay Martinez M.D. Signed By: 05/15/24611 DD/ 9 TD/TT: Grants Officer: ZENA HealthcareRadiology Study observation (narrative)[facility] HealthcareXR DEXA AXIAL SKELETONOrdered By: Radiologist Radiology on 52-14-6627[employer] Work Phone: mm TOMOSYNTHESIS SCREENING BIon 09-42-3583VvvSouth [place] [address] Mammography Report Signed Patient: МАРИЯ LAY MR#: [id number] : 1965 Acct:[id number] Age/Sex: 58 / F ADM Date: 05/14/24 Loc: MAMMO Attending Dr: Danya Najera Ordering Physician: Danya Najera Results: Date of Service: 05/14/24 Follow Up: Procedure(s): MM tomosynthesis screening BI Accession Number(s): [id number] cc: Danya Najera; Physician,Non-Staff M.DEliceo Patient Name: МАРИЯ LAY MR#: [id number] : 1965 Exam Date: 05/14/2024 Ordering Doctor: SHENA Najera . RADIOLOGY REPORT PROCEDURE: MM TOMOSYNTHESIS SCREENING [...] uterine cancer at age 27. LOCATION: The [facility] BREAST COMPOSITION: The breasts are heterogeneously dense,which [...] PALPABLE LUMP SHOULD BE BIOPSIED. Dictated by: Neto Tao MD on 05/14/2024 at 13:31 Approved by: Neto Tao MD on 05/14/2024 at 13:32 Dictated By: Neto Tao M.D. Signed By: 05/14/24 1333 DD/ 1333 TD/TT: Grants Officer:TBHRadiology, RadiologistMD - 05/14/2024 The [place] [id number] Mammography Report Signed Patient: МАРИЯ LAY MR#: [id number] : 1965 Acct:[id number] Age/Sex: 58 / F ADM Date: 05/14/24 Loc: MAMMO Attending Dr: Danya Najera Ordering Physician: Danya Najera Results: Date of Service: 05/14/24 Follow Up: Procedure(s): MM tomosynthesis screening BI Accession Number(s): [id number] cc: Danya Najera; Physician,Non-Staff M.DEliceo Patient Name: МАРИЯ LAY MR#: [id number] : 1965 Exam Date: 05/14/2024 Ordering Doctor: SHENA Najera . RADIOLOGY REPORT PROCEDURE: MM TOMOSYNTHESIS SCREENING [...] uterine cancer at age 27. LOCATION: The [facility] BREAST COMPOSITION: The breasts are heterogeneously dense,which [...] PALPABLE LUMP SHOULD BE BIOPSIED. Dictated by: Neto Tao MD on 05/14/2024 at 13:31 Approved by: Neto Tao MD on 05/14/2024 at 13:32 Dictated By: Neto Tao M.D. Signed By: 05/14/24 1333 DD/ 1333 TD/TT: Grants Officer: ZENA HealthcareRadiology Study observation (narrative)[facility] TOMOSYNTHESIS SCREENING BIOrdered By: Radiologist Radiology on 18-84-9136LEJ[facility] Work Phone: RODRIGUEZRashi,SOCRATESIMA HPV,AGE GDLNon 50-72-1299KEF [facility] ACOG TESTINGNote.[facility] HealthcareComment on above:TESTS RESULT FLAG UNITS REF RANGE LAB Clinician Provided Cytology Information Source.............Vagina No. of containers..01 ThinPrep Vial Age Lin ROGEROG Marisol... FLAG LEGEND: L-Low Normal,H-High Normal,LL-Alert Low,HH-Alert High <-Panic Low,>-Panic High,A-Abnormal,AA-Critical Abnormal Performed at: 01 =[address] [address] Coby Russell MD, HPV APTIMANegativeNegativeSANPETE VALLEY [facility]ITAL HealthcareComment on above:This nucleic acid amplification test detects fourteen high- risk HPV types (16,18,31,33,35,39,45,51,52,56,58,59,66,68) without differentiation. Performed at: =[address] [id number] Quality Control Industrial Engineer: Coby Russell MD, Phone: [phone] Performed at: [facility] - [facility] [address], [place] [id number] Quality Control Industrial Engineer: Coby Russell MD, Phone: [phone] IGP, APTIMA HPV, RFX 16/18,45Note.[facility]IESS Memorial Health SystemComment on above:TESTS RESULT FLAG UNITS REF RANGE LAB DIAGNOSIS: 02 NEGATIVE FOR INTRAEPITHELIAL LESION OR MALIGNANCY. Specimen adequacy: 02 Satisfactory for evaluation. Performed by: Nazia Crump, Skilled Laborer ([facility]) . 02 Note: Note 02 The Pap [...] High <-Panic Low,>-Panic High,A-Abnormal,AA-Critical Abnormal Performed at: [facility] [address] [place] [address] Coby Russell MD, SPATULA-ALONE VAGINA [facility] HOSPITALISYHardin County Medical CenterNo Panel Informationon 04-76-8360EFNMCenterpoint Medical Center Laboratory - Chemistry and Chemistry - challengeon 70-79-7494Vjqintj [Mass/Vol] 3.6 g/dL3.4-5.0White HospitalMagnesium [Mass/Vol]1.7 mg/dLLow 1.8-2.4FBellevue HospitalUrate [Mass/Vol]4.6 mg/dL2.6-6.0 White HospitalBilirubin Ql (U)NegativeNEGATIVEWhite HospitalGlucose (U) [Mass/Vol]NegativeNEGATIVEWhite HospitalKetones Ql (U)NegativeNEGATIVEWhite HospitalpH (U)6.0 [pH]5.0-9.0[facility] Children's Hospitalpecific gravity (U) [Rel density]1.0201.005-1.025White HospitalUrobilinogen Qn (U)0.2 {Jimmy'U}/dL0.2-1.0White HospitalLaboratory - Specimen informationon 25-39-0896Izxovjikvy (U)CLEARCLEARFBellevue HospitalColor (U)LT. YELLOWYELLOWWhite HospitalLaboratory - Urinalysison 30-53-2222Doweevtcy esterase Test strip Ql (U)NegativeNEGATIVE White HospitalNitrite Ql (U)NegativeNEGATIVEWhite HospitalProtein (U) [Mass/Vol]13.0 mg/dLHigh<=11.9White HospitalProtein Ql (U)NegativeNEG/TRACEWhite HospitalMicroalbumin [Mass/volume] in Urineon 69-57-6754Niufrir DL <= 20 mg/L (U) [Mass/Vol]mg/dL<=30.0White HospitalNo Panel Informationon 99-45-557404255327-Uwuxguw Vitamin D Total54.3 ng/mLWhite Hospital Comment on above:<20 ng/mL Vit D qyjtbtodc13-<30 ng/mL Vit D jgbxpqzfesoo00-447 ng/mL Vit D sufficient>100 ng/mL Potential ToxicityParathyroid Hormone (Intact) 28 pg/aL09-04RzlnictgoWhite HospitalComment on above:Performed at: [address], [place] [id number] Director: Davion Noonan PhD, Phone: [phone] Level4.0 mg/dL2.6-4.7FBellevue HospitalUrine Occult BloodTRACE-INEGATIVEWhite HospitalUrine Random Sqcvwnvzhi651.15 mg/dL20.00-300.00White HospitalProtein/Creatinine (U) [Ratio]on 25-12-2151Ayvhs Protein/Creatinine Ratio0.09White HospitalMR Abdomen WO and W contrast Mariana 79-24-5273RgoSouth [place] [address] Magnetic Resonance Report Signed Patient: МАРИЯ LAY MR#: [id number] : 1965 Acct:[id number] Age/Sex: 57 / F ADM Date: 08/22/23 Loc: MRI Attending Dr: Shaikh Cecilio Branch Ordering Physician: Shaikh Jose Carlos Hernandes Date of Service: 08/22/23 Procedure(s): MR abdomen wo/w con Accession Number(s): [id number] cc: Shaikh Jose Carlos Hernandes [place] [id number] Patient Name: МАРИЯ LAY MRN: [id number] date: 1965 Sex: F Assigned Patient Location: MRI Current Patient Location: Accession/Order Number: [id number] Exam Date: 08/22/2023 13:45 Report Date: 08/25/2023 [...] M.D. Signed By: 08/25/23817 DD/ 4 TD/TT: Grants Officer:TBHRadiology, Radiologist, MD - 08/25/2023 [place] [address] Magnetic Resonance Report Signed Patient: МАРИЯ LAY MR#: [id number] : 1965 Acct:[id number] Age/Sex: 57 / F ADM Date: 08/22/23 Loc: MRI Attending Dr: Shaikh Cecilio Branch Ordering Physician: Shaikh Jose Carlos Hernandes Date of Service: 08/22/23 Procedure(s): MR abdomen wo/w con Accession Number(s): [id number] cc: Shaikh Jose Carlos Hernandes The [place] [address] Patient Name: МАРИЯ LAY MRN: [id number] date: 1965 Sex: F Assigned Patient Location: MRI Current Patient Location: Accession/Order Number: [id number] Exam Date: 08/22/2023 13:45 Report Date: 08/25/2023 [...] M.D. Signed By: 08/25/23817 DD/ 4 TD/TT: Grants Officer: [facility]point Medical CenterRadiology Study observation (narrative)[facility] Abdomen WO and W contrast IVOrdered By: Radiologist Radiology on 65-79-5179WHZWCenterpoint Medical Center Work Phone: aLL BUNon 90-95-6709Zzad nitrogen [Mass/Vol]21.0 mg/dL High7.0 - 18.0 mg/dLCenterpoint Medical CenterNo Panel Informationon 08-22-2023 Interpretation and review of laboratory resultsAbnormalNOOzarks Medical CenterCLINISYNC [facility] CREATININEon [id number] [Mass/Vol]1.48 mg/dLHigh 0.55 - 1.02 mg/dLCenterpoint Medical CenterGFR/1.73 sq M.predicted CKD-EPI (S/P/Bld) [Vol rate/Area]78Xsv31 - PINFNOEllis Fischel Cancer Center EGFR-NON AF [id number] - PINF [facility] RENAL BIon [phone] [place] [address] Ultrasound Report Signed Patient: МАРИЯ LAY MR#: [id number] : 1965 Acct:[id number] Age/Sex: 57 / F ADM Date: 06/27/23 Loc: [place] Attending Dr: Shaikh Cecilio Branch Ordering Physician: Shaikh Jose Carlos Hernandes Date of Service: 06/27/23 Procedure(s): US renal BI Accession Number(s): [id number] cc: Shaikh Jose Carlos Hernandes [address] [address] Patient Name: МАРИЯ LAY MRN: [id number] date: 1965 Sex: F Assigned Patient Location: US Current Patient Location: US Accession/Order Number: [id number] Exam Date: 06/27/2023 08:58 Report Date: 06/27/2023 [...] Signed By: 06/27/23 1001 DD/ 0958 TD/TT: Grants Officer:TBHRadiology, Radiologist, - 06/27/2023 [place] [address] Ultrasound Report Signed Patient: МАРИЯ LAY MR#: [id number] : 1965 Acct:[id number] Age/Sex: 57 / F ADM Date: 06/27/23 Loc: US Attending Dr: Shaikh Cecilio Branch Ordering Physician: Shaikh Jose Carlos Hernandes Date of Service: 06/27/23 Procedure(s): US renal BI Accession Number(s): [id number] cc: Shaikh Jose Carlos Hernandes [place] [address] Patient Name: МАРИЯ LAY MRN: [id number] date: 1965 Sex: F Assigned Patient Location: US Current Patient Location: US Accession/Order Number: [id number] Exam Date: 06/27/2023 08:58 Report Date: 06/27/2023 [...] Signed By: 06/27/23 1001 DD/ 0958 TD/TT: Grants Officer: [facility] A10 NetworksRadiology Study observation (narrative)[facility] HealthcareUS RENAL BI Ordered By: Radiologist Radiology on 23-99-4492MHVB [employer] Work Phone: XR LSPINE MIN 4 VIEWSon 19-77-7904RF LSPINE MIN 4 VIEWSEXAMINATION: XR LSPINE MIN 4 VIEWS HISTORY: Low [...] low back pain. Electronically authenticated by: JAY MARTINEZ Date: 2022-06-07 12:11[facility] HospitalB-Type Natriuretic Peptideon 98-38-4002Pslvrzmgoey peptide B (Bld) [Mass/Vol]64.0 pg/mLNormal5-100White HospitalComment on above:Result Comment: PERFORMED BY: [place] [address] PATHOLOGIST NETWORK MGR SHIMA SY M.D.Performed By: #### CK, CKMB, CBC, BMP, BNP #### [place] [address] USABasic Metabolic Panelon 17-17-3651Mjjnycy [Mass/Vol]9.3 mg/dLNormal8.2-10.2FBellevue HospitalComment on above:Performed By: #### CK, CKMB, CBC, BMP, BNP #### [facility] [address] [place] [address] USAChloride [Moles/Vol]104 mmol/RLpdnno73-163HfmlodjuiWhite HospitalComment on above:Performed By: #### CK, CKMB, CBC, BMP, BNP #### [facility] [address] [place] [address] USACO2 [Moles/Vol]19.9 mmol/LLow22.0-30.0White HospitalComment on above:Performed By: #### CK, CKMB, CBC, BMP, BNP #### [facility] [address] [place] [address] USACreatinine [Mass/Vol]1.27 mg/dLHigh0.44-1.03White HospitalComment on above:Performed By: #### CK, CKMB, CBC, BMP, BNP #### [facility] [address] [place] [address] USACreatinine Clr Calc Losjhatv54.75Ohio Valley HospitalComment on above:Result Comment: PERFORMED BY: [place] [address] PATHOLOGIST NETWORK MGR SHIMA SY M.D.Performed By: #### CK, CKMB, CBC, BMP, BNP #### [place] [address] USAEstimated GFR ( Nlgdazq23TjpmruEjdaw[address] [place], [place] [address]Comment on above:Result Comment: GFR estimated reference range: According to KDOQI guidelines, <60 ml/min/1.73m2 is sufficient to diagnose a patient with chronic kidney disease.Performed By: #### CK, CKMB, CBC, BMP, BNP #### [facility] [address] [place] [address] USAEstimated GFR (Non- Uq42NuveiaJrrtnmdtuOhio Valley HospitalComment on above:Performed By: #### CK, CKMB, CBC, BMP, BNP #### [facility] [address] [place] [address] USAGlucose [Mass/Vol]96 mg/tCQbvdfp35-017RpgrwseskWhite HospitalComment on above:Result Comment: Random Glucose Reference Range is dependent on time and content of last meal. Glucose of more than 200 mg/dL in a nonstressed, ambulatory subject supports the diagnosis of Diabetes Mellitus. ADA recommended reference rangePerformed By: #### CK, CKMB, CBC, BMP, BNP #### [facility] [address] [place] [address] USAPotassium [Moles/Vol]3.7 mmol/LNormal3.5-5.1FBellevue HospitalComup health system on above:Performed By: #### CK, CKMB, CBC, BMP, BNP #### [facility] [address] [place] [address] USASodium [Moles/Vol]135 mmol/DDlh923-625LpbaponbaWhite HospitalComment on above:Performed By: #### CK, CKMB, CBC, BMP, BNP #### [facility] [address] [place] [address] USAUrea nitrogen [Mass/Vol]17 mg/dLNormal9-23White HospitalComup health system on above:Performed By: #### CK, CKMB, CBC, BMP, BNP #### [place] [address] USACOVID-19 Antigenon 24-36-6574RPVQW-19 AntigenHealthcare Worker?: N Bella Reference Bella Reference Negative [...] its performance Bella Disclaimer characteristic determined by [employer] and Bella Disclaimer validated at [facility]. This Bella Disclaimer test has not [...] Emergency Use Authorization for Coronavirus Bella Disclaimer isease-2019 during the Public Health Emergency) Bella Disclaimer [...] is terminated or revoked sooner. PERFORMED BY: [place] [address] PATHOLOGIST NETWORK MGR SHIMA SY M.D.Ohio Valley HospitalComment on above: Performed By: #### FLU, COVID-19 BELLA, SOFIANEG #### [place] [address] USAComplete Blood Count Auto Diffon 94-65-2343Zfvtvtzkk (Bld) [#/Vol]0.1 10*3/uLNormal0.0-0.2FBellevue HospitalComment on above:Result Comment: PERFORMED BY: [place] [address] PATHOLOGIST NETWORK MGR SHIMA SY M.D.Performed By: #### CK, CKMB, CBC, BMP, BNP #### [place] [address] USABasophils/100 WBC (Bld)1.4 %Normal.White HospitalComment on above:Performed By: #### CK, CKMB, CBC, BMP, BNP #### [place] [address] USAEosinophils (Bld) [#/Vol]0.2 10*3/uLNormal0.0-0.45 White HospitalComment on above:Performed By: #### CK, CKMB, CBC, BMP, BNP #### [place] [address] USAEosinophils/100 WBC (Bld)2.3 %Normal.White HospitalComment on above:Performed By: #### CK, CKMB, CBC, BMP, BNP #### [facility] [address] [place] [address] USAErythrocyte distribution width (RBC) [Ratio]13.2 %Normal 11.9-15.3FBellevue HospitalComment on above:Performed By: #### CK, CKMB, CBC, BMP, BNP #### [facility] [address] [place] [address] USAHematocrit (Bld) [Volume fraction]41.5 %Mixfbj55.0-46.4 White HospitalComment on above:Performed By: #### CK, CKMB, CBC, BMP, BNP #### [place] [address] USAHemoglobin (Bld) [Mass/Vol]13.8 g/nDGecudg81.8-15.4 White HospitalComment on above:Performed By: #### CK, CKMB, CBC, BMP, BNP #### [place] [address] USALymphocytes (Bld) [#/Vol]3.6 10*3/uLNormal1.00-4.8 White HospitalComment on above:Performed By: #### CK, CKMB, CBC, BMP, BNP #### [place] [address] USALymphocytes/100 WBC (Bld)39.0 %Normal.White HospitalComment on above:Performed By: #### CK, CKMB, CBC, BMP, BNP #### [place] [address] USAMCH (RBC) [Entitic mass]30.7 ppSevixe59.7-34.3FBellevue HospitalComment on above:Performed By: #### CK, CKMB, CBC, BMP, BNP #### [place] [address] USAMCV (RBC) [Entitic vol]91.9 zLZbqroy69-691WkeauxjyjWhite HospitalComment on above:Performed By: #### CK, CKMB, CBC, BMP, BNP #### [facility] [address] [place] [address] USAMean Corpuscular HGB Conc33.4 g/tFTnungu81.0-35.0White HospitalComment on above:Performed By: #### CK, CKMB, CBC, BMP, BNP #### [place] [address] USAMonocytes (Bld) [#/Vol]0.8 10*3/uLNormal0.0-0.8White HospitalComment on above:Performed By: #### CK, CKMB, CBC, BMP, BNP #### [place] [address] USAMonocytes/100 WBC (Bld)9.0 %Normal.White HospitalComment on above:Performed By: #### CK, CKMB, CBC, BMP, BNP #### [place] [address] USANeutrophils (Bld) [#/Vol]4.4 10*3/uLNormal1.8-7.7FBellevue HospitalComment on above:Performed By: #### CK, CKMB, CBC, BMP, BNP #### [place] [address] USANeutrophils/100 WBC (Bld)48.3 %Normal.White HospitalComment on above:Performed By: #### CK, CKMB, CBC, BMP, BNP #### [place] [address] USANucleated RBC/100 WBC (Bld) [Ratio]0.1 %Normal0-0.5 White HospitalComment on above:Performed By: #### CK, CKMB, CBC, BMP, BNP #### [place] [address] USAPlatelet mean volume (Bld) [Entitic vol]7.0 fLNormal 6.3-10.7FBellevue HospitalComment on above:Performed By: #### CK, CKMB, CBC, BMP, BNP #### [facility] [address] [place] [address] USAPlatelets (Bld) [#/Vol]237 10*3/gLXmopww152-023EyowawxbuWhite HospitalComment on above:Performed By: #### CK, CKMB, CBC, BMP, BNP #### [place] [address] USARBC (Bld) [#/Vol]4.51 10*6/uLNormal3.60-5.00White HospitalComment on above:Performed By: #### CK, CKMB, CBC, BMP, BNP #### [place] [address] USAWBC (Bld) [#/Vol]9.1 10*3/uLNormal4.5-11.0White HospitalComment on above:Performed By: #### CK, CKMB, CBC, BMP, BNP #### [place] [address] USACreatine Kinaseon 70-42-9668QO [Catalytic activity/Vol]69 U/BRoiyrd54-462XdjviayvgWhite HospitalComment on above:Performed By: #### CK, CKMB, CBC, BMP, BNP #### [place] [address] USACreatinine Kinase MBon 13-05-0220QF.MB [Mass/Vol]3.1 ng/mL Normal0.6-6.3FBellevue HospitalComment on above:Performed By: #### FLU, COVID-19 BELLA, SOFIANEG #### [place] [address] USACKMB Relative Index4.4 %High0.00-2.50White HospitalComment on above:Result Comment: PERFORMED BY: [place] [address] PATHOLOGIST NETWORK MGR SHIMA SY M.D.Performed By: #### FLU, COVID-19 BELLA, SOFIANEG #### [facility] [address] [place] [id number] USAECG 12 lead ECGon 69-67-2633QZS 12 lead ECGPROMEDICA [facility] [place] [address] [place] [id number] Electrocardiograph Report Signed Patient: Мария Lay MR#: [id number] : 1965 Acct:[id number] Age/Sex: 55 / F ADM Date: 10/10/21 Loc: ER Room: Type: [facility] ER Attending Dr: Ordering Provider: [...] leads Confirmed by KATHRYN PARKS DO ([id number]), editor producer Trent Garay ([id number]) on 10/11/2021 11:15:22 AM Referred By: Electronically Signed By:KATHRYN PARKS DO Transcribed By: MUS Signed By Kathryn Parks DO 1115Ohio Valley HospitalInfluenza A and B Antigenon 66-61-9333Yfienraop A and B AntigenNote 6 be below the detection limit of [...] samples is recommended. Note 7 PERFORMED BY: [place] [address] PATHOLOGIST NETWORK MGR SHIMA SY M.D.NormalWhite HospitalComment on above: Performed By: #### FLU, COVID-19 BELLA, SOFIANEG #### [place] [address] USASofia Ag Negativeon 07-68-5498Qscih Ag NegativeNegative NormalNegativeWhite HospitalComment on above:Result Comment: This is a duplicate Bella SARS Antigen (BLAYNE) result to be used for statistical tracking purpose only. PERFORMED BY: [place] [address] PATHOLOGIST NETWORK MGR SHIMA SY M.D.Performed By: #### FLU, COVID-19 BELLA, SOFIANEG #### [place] [address] USATroponin I High Sensitivityon 04-55-0327Nrnmaupl I High Vqmjsxzmfqn64 pg/mLNormal0-15White HospitalComment on above: Result Comment: PERFORMED BY: [place] [address] PATHOLOGIST NETWORK MGR SHIMA SY M.D.Performed By: #### HS TROP #### [place] [address] USAXR chest 1V portableon 37-14-6390DI chest 1V portable [facility] [address] [place] [id number] XRay Report Signed Patient: Мария Lay MR#: [id number] : 1965 Acct:[id number] Age/Sex: 55 / F ADM Date: 10/10/21 Loc: ER Room: Type: [facility] ER Attending Dr: Ordering Provider: Kathryn Parks DO Date of Service: 10/10/21 XR/XR chest 1V portable: Chest Pain Copies to: Kathryn M Tupa, DO XR chest 1V portable 10/10/2021 6:45 [...] David Walker M.D.10/10/2021 7:52 PM Dictation Location: [place] [address] Transcribed By: [facility] 10/10/211951 Dictated By: David Walker II, MD 10/10/211949 Signed By: 10/10/211951Ohio Valley HospitalXR ANKLE LEFT 3+ VIEWS (STANDARD)on 23-00-1534HE ANKLE LEFT 3+ VIEWS (STANDARD)EXAMINATION: XR ANKLE LEFT 3+ VIEWS (STANDARD) 07/29/2021 [...] bodies. IMPRESSION: No obvious fractures or dislocations. [facility] Workstation ID: [id number] Dictated by: LOULOU TREVINO on FriJul 29, 2021 8:55:54 PM EST Transcribed by: DARYA SCHILLING on FriJul 29, 2021 8:57:24 PM EST Finalized by: LOULOU TREVINO on FriJul 29, 2021 10:03:27 PM [facility] SystemComment on above:Order Comment: Injury/Trauma or Illness?:Injury/Trauma How long have you had these symptoms (acute/chronic)?:Acute Reason for exam?:pain History of cancer?:u Surgeries, chemotherapy, or radiation?:u Type of Exam?:Initial Mechanism of injury?:fall Vital Signs Date TimeVital SignValuePerforming IuzdpgpcnYshfuhif95-52-0055 15:33-0400Body mass index (BMI) [Ratio]27.6 kg/m2Danya Curry CHATTERJEE Work Phone: [facility] CenterVdernrkrce56-73-9521 15:33-0400Body exxgcp37.56 kgDanya Curry CHATTERJEE Work Phone: [facility] CenterFlgdvznxau18-75-5204 15:33-0400Diastolic blood yuyuynbs42 mm[Hg]Danya Curry CHATTERJEE Work Phone: [facility] CenterQpdbjzxzno41-49-3402 15:33-0400Systolic blood mm[Hg]Danya Curry CHATTERJEE Work Phone: [facility] CenterRulcaugpwj40-40-4897 17:14-0400Body pqebsf071.91 cmLisa Aichholz DIGITAL SALES EXECUTIVE-C Work Phone: [phone] [place], [place] [address]10-13-2025 17:14-0400 Body mass index (BMI) [Ratio]27.3 kg/m2Lisa Aichholz DIGITAL SALES EXECUTIVE-C Work Phone: [phone] [place], [place] [address]10-13-2025 17:14-0400 Body ucfqncxqrpt65.9 [degF]Margarette Aichholz DIGITAL SALES EXECUTIVE-C Work Phone: [phone] [place], [place] [address]10-13-2025 17:14-0400 Body .15 kgLisa Aichholz DIGITAL SALES EXECUTIVE-C Work Phone: [phone] [place], [place] [address]10-13-2025 17:14-0400 Diastolic blood rtquzesh72 mm[Hg]Margarette Aichholz DIGITAL SALES EXECUTIVE-C Work Phone: [phone] [place], [place] [address]10-13-2025 17:14-0400 Heart rate80 /minLisa Aichholz DIGITAL SALES EXECUTIVE-C Work Phone: [phone] [place], [place] [address]10-13-2025 17:14-0400 Respiratory rate20 /minLisa Aichholz DIGITAL SALES EXECUTIVE-C Work Phone: [phone] [place], [place] [address]10-13-2025 17:14-0400 SaO2% (BldA) [Mass fraction]93 %Margarette Andradejose alejandro DIGITAL SALES EXECUTIVE-C Work Phone: [facility]10-13-2025 17:14-0400 Systolic blood nsciqyld905 mm[Hg]Margarette Andradejose alejandro DIGITAL SALES EXECUTIVE-C Work Phone: [phone]08-11-2025 18:14-0400 Body mass index (BMI) [Ratio]28.18 kg/m2Lisa Raymondholz DIGITAL SALES EXECUTIVE Work Phone: [facility] CenterJxyhzyjeiu85-09-5520 18:14-0400Body temperature 97.81 [degF]Margarette Andradesukhwinderz DIGITAL SALES EXECUTIVE Work Phone: [facility] CenterQbmqtrlqkr34-79-2012 18:14-0400Body cxtjip59.2 kg Margarette Andradesukhwinderz DIGITAL SALES EXECUTIVE Work Phone: [facility] CenterXssqgxanlk73-97-4848 18:14-0400Diastolic blood mm[Hg]Margarette Raymondsukhwinderz DIGITAL SALES EXECUTIVE Work Phone: [facility] CenterQwdecjrppk23-90-2386 18:14-0400Heart rate78 /min Margarette Raymondholz DIGITAL SALES EXECUTIVE Work Phone: [facility] CenterScoxeabdax95-00-4767 18:14-0400Respiratory rate16 /minLisa Andradeholz DIGITAL SALES EXECUTIVE Work Phone: [facility] CenterOucshpfdxn23-79-6720 18:14-6870CjT4% (BldA) [Mass fraction]96 %Margarette Lylaz DIGITAL SALES EXECUTIVE Work Phone: [facility] CenterDydumsyrpq03-22-8544 18:14-0400Systolic blood fqhaoscz120 mm[Hg]Margarette Raymondholz DIGITAL SALES EXECUTIVE Work Phone: [facility] CenterAanocdaxwe68-82-5322 17:55-0400Body mass index (BMI) [Ratio]29.02 kg/m2Lisa Mikalhholz DIGITAL SALES EXECUTIVE Work Phone: [facility] CenterYiigssfpym78-12-1007 17:55-0400Body temperature 98.49 [degF]Margarette Estevez DIGITAL SALES EXECUTIVE Work Phone: [facility] CenterGzrctyerfk30-12-5253 17:55-0400Body bwebou77.56 kgMargarette Estevez DIGITAL SALES EXECUTIVE Work Phone: [facility] CenterHfruejaaaz08-60-9035 17:55-0400Diastolic blood xarotawb98 mm[Hg]Margarette Estevez DIGITAL SALES EXECUTIVE Work Phone: [facility] CenterWjyytoljaw84-03-1253 17:55-0400Heart rate63 /min Margarette Estevez DIGITAL SALES EXECUTIVE Work Phone: [facility] CenterVhdadrmpvr02-27-5307 17:55-0400Respiratory rate18 /minMargarette Estevez DIGITAL SALES EXECUTIVE Work Phone: [facility] CenterQjuixdzkuu45-49-7346 17:55-8774CsV0% (BldA) [Mass fraction]99 %Margarette Estevez DIGITAL SALES EXECUTIVE Work Phone: [facility] CenterDsgvvoyoza84-23-5389 17:55-0400Systolic blood edlcwrrq872 mm[Hg]Margarette Estevez DIGITAL SALES EXECUTIVE Work Phone: [facility] CenterAauxsdvbwz72-23-8557 15:54-0400Body hyoxzy755.91 Teresa Manning MD Work Phone: [facility]06-10-2025 15:54-0400 Body mass index (BMI) [Ratio]28.9 kg/g6TzponooqjrdChinmay Manning MD Work Phone: [facility]06-10-2025 15:54-0400 Body rlrunq64.55 kgChinmay Manning MD Work Phone: [facility]06-10-2025 15:54-0400 Diastolic blood mm[Hg]Chinmay Manning MD Work Phone: [facility]06-10-2025 15:54-0400 Heart rate71 /minAbdelrahman Kerri MD Work Phone: [facility]06-10-2025 15:54-0400 Respiratory rate18 /minChinmay Manning MD Work Phone: [facility]06-10-2025 15:54-0400 SaO2% (BldA) [Mass fraction]97 %Chinmay Manning MD Work Phone: [facility]06-10-2025 15:54-0400 Systolic blood mm[Hg]Chinmay Manning MD Work Phone: [facility]03-12-2025 15:46-0400 Body mass index (BMI) [Ratio]31.15 kg/m2Lisa Herb DIGITAL SALES EXECUTIVE Work Phone: [facility] CenterEojcfurqon06-67-2474 15:46-0400Body temperature 98.4 [degF]Margarette Herb DIGITAL SALES EXECUTIVE Work Phone: [facility] CenterEvqkxyzrsl13-26-8596 15:46-0400Body .54 kgLisa Mikalhholz DIGITAL SALES EXECUTIVE Work Phone: [facility] CenterRffmqakwwb72-10-2311 15:46-0400Diastolic blood cuzmlhva27 mm[Hg]Margarette Mikalhsukhwinderz DIGITAL SALES EXECUTIVE Work Phone: [facility] CenterXaoyfhwegc22-15-2270 15:46-0400Heart rate77 /min Margarette Aichholz DIGITAL SALES EXECUTIVE Work Phone: [place] [address]Xyijtkzotd99-15-0463 15:46-0400Respiratory rate20 /minLisa Mikalhholz DIGITAL SALES EXECUTIVE Work Phone: [facility] CenterWnabpustxd54-24-9106 15:46-1296TqY3% (BldA) [Mass fraction]97 %Margarette Mikalhholz DIGITAL SALES EXECUTIVE Work Phone: [facility] CenterKwtjgdadnh05-26-3559 15:46-0400Systolic blood eiljiuvg533 mm[Hg]Margarette Aichholz DIGITAL SALES EXECUTIVE Work Phone: [facility] CenterXggndkdydc78-15-0993 15:51-0500Body .64 cmAalcira Manning MD Work Phone: [facility]02-04-2025 15:51-0500 Body mass index (BMI) [Ratio]32 kg/f9LviczhpwrmyChinmay Manning MD Work Phone: [phone]02-04-2025 15:51-0500 Body qkkhojxilrv60.1 [degF]Chinmay Manning MD Work Phone: [phone]02-04-2025 15:51-0500 Body .92 kgChinmay Manning MD Work Phone: [phone]02-04-2025 15:51-0500 Diastolic blood bftswacf17 mm[Hg]Chinmay Manning MD Work Phone: [phone]02-04-2025 15:51-0500 Heart rate80 /minChinmay Manning MD Work Phone: [phone]02-04-2025 15:51-0500 Respiratory rate18 /minChinmay Manning MD Work Phone: [phone]02-04-2025 15:51-0500 SaO2% (BldA) [Mass fraction]99 %Chinmay Manning MD Work Phone: [phone]02-04-2025 15:51-0500 Systolic blood rxcadtpy939 mm[Hg]Chinmay Manning MD Work Phone: [phone]12-11-2024 16:55-0500 Body .6 cmRosita Garza DIGITAL SALES EXECUTIVE Work Phone: [phone] [place], [place] [address]Vaiceztvot14-56-2840 16:55-0500Body mass index (BMI) [Ratio]31.64 kg/l8Umnbymmk Garza DIGITAL SALES EXECUTIVE Work Phone: [facility] CenterSqggdjkvub13-90-8348 16:55-0500Body temperature 97.7 [degF]Rosita Garza DIGITAL SALES EXECUTIVE Work Phone: [facility] CenterJhrswsvftf09-36-4570 16:55-0500Body ygrgld26.91 kgBrkavita Garza DIGITAL SALES EXECUTIVE Work Phone: [facility] CenterPqsiactmoo02-02-2303 16:55-0500Diastolic blood yeajtvrf67 mm[Hg]Rosita Garza DIGITAL SALES EXECUTIVE Work Phone: [facility] CenterNotdehinsf25-21-1708 16:55-0500Heart wawo664 /min Rosita Garza DIGITAL SALES EXECUTIVE Work Phone: [facility] CenterLcwdehoxef21-72-1526 16:55-0500Respiratory rate16 /minBrkavita Garza DIGITAL SALES EXECUTIVE Work Phone: [facility] CenterXdrwhffvsa89-93-8960 16:55-1082GoC6% (BldA) [Mass fraction]97 %Rosita Garza DIGITAL SALES EXECUTIVE Work Phone: [facility] CenterPwqpqfpecf78-58-4049 16:55-0500Systolic blood inenqqcf331 mm[Hg]Rosita Garza DIGITAL SALES EXECUTIVE Work Phone: [facility] CenterBujduduvji29-28-5898 15:13-0400Body mass index (BMI) [Ratio]31.13 kg/m2Danya CHATTERJEE Work Phone: [facility] CenterQkqsigswep88-56-7312 15:13-0400Body hukwgu43.81 kgDanya CHATTERJEE Work Phone: [place] [address]Hvzdtechuc13-27-5169 15:13-0400Diastolic blood dphhjpmu97 mm[Hg]Danya CHATTERJEE Work Phone: [place] [address]Xuqgqyjkiy06-90-9408 15:13-0400Systolic blood klcblkji051 mm[Hg]Danya Najera PA Work Phone: noOz[facility] CenterJfcdnjlxva13-20-0798 16:55-0400Body gxvryp796.9 cmRosita Garza DIGITAL SALES EXECUTIVE Work Phone: [facility] CenterCrtqdefakl60-12-8007 16:55-0400Body mass index (BMI) [Ratio]31.32 kg/o5Dinzabyo Garza DIGITAL SALES EXECUTIVE Work Phone: [facility] CenterKbzmgsdukv27-01-3543 16:55-0400Body temperature 96.8 [degF]Rosita Garza DIGITAL SALES EXECUTIVE Work Phone: [facility] CenterEhladjlmnm67-02-8970 16:55-0400Body ocljau90.36 kgRosita Armijopatrick DIGITAL SALES EXECUTIVE Work Phone: [facility] CenterYvpfszshzc20-95-6435 16:55-0400Diastolic blood ubfflsym79 mm[Hg]Rosita Garza DIGITAL SALES EXECUTIVE Work Phone: [facility] CenterMokhpctbnt42-39-2899 16:55-0400Heart kntn099 /min Rosita Garza DIGITAL SALES EXECUTIVE Work Phone: noOzarks Medical CenterComment on above:96% Z157-95-0340 16:55-0400Systolic blood inbqcnjb570 mm[Hg]Rosita Garza DIGITAL SALES EXECUTIVE Work Phone: noOzarks Medical CenterQecroxbtvk83-35-9335 16:24-0400Body .91 cmMD Chinmay Manning Work Phone: [facility]09-04-2024 16:24-0400 Body mass index (BMI) [Ratio]31.8 kg/m2MD Chinmay Manning Work Phone: [facility]09-04-2024 16:24-0400 Body zkoagpgwfua33.8 [degF]MD Chinmay Manning Work Phone: [facility]09-04-2024 16:24-0400 Body ohsoow99.88 kgMD Chinmay Manning Work Phone: [phone]09-04-2024 16:24-0400 Diastolic blood hiiwdfun49 mm[Hg]MD Chinmay Manning Work Phone: [phone] [place], [place] 3892709-04-2024 16:24-0400 Heart rate97 /minMD Chinmay Manning Work Phone: [phone] [place], [place] 3892709-04-2024 16:24-0400 Respiratory rate18 /minMD Chinmay Manning Work Phone: [phone] [place], [place] 7055209-04-2024 16:24-0400 SaO2% (BldA) [Mass fraction]94 %MD Chinmay Manning Work Phone: [phone]09-04-2024 16:24-0400 Systolic blood mm[Hg]MD Chinmay Manning Work Phone: [phone] [place], [place] 3892705-28-2024 15:25-0400 Body mhhsut233.91 cmMD Chinmay Manning Work Phone: [phone] [place], [place] 7055205-28-2024 15:25-0400 Body mass index (BMI) [Ratio]32.3 kg/m2MD Chinmay Manning Work Phone: [phone] [place], [place] 7445705-28-2024 15:25-0400 Body kmnbqirkwdg28.3 [degF]MD Chinmay Manning Work Phone: [phone]05-28-2024 15:25-0400 Body ebwajf52.24 kgMD Chinmay Manning Work Phone: [phone]05-28-2024 15:25-0400 Diastolic blood jkogutpq51 mm[Hg]MD Chinmay Manning Work Phone: [facility]05-28-2024 15:25-0400 Heart pubh021 /minMD Chinmay Manning Work Phone: [facility]05-28-2024 15:25-0400 Respiratory rate16 /minMD Chinmay Manning Work Phone: [facility]05-28-2024 15:25-0400 SaO2% (BldA) [Mass fraction]96 %MD Chinmay Manning Work Phone: [facility]05-28-2024 15:25-0400 Systolic blood wktfharp938 mm[Hg]MD Chinmay Manning Work Phone: [facility]07-07-2022 16:30-0400 Body jdocvr180.91 [employer] Other [employer] Other 07-07-2022 16:30-0400Body mass index (BMI) [Ratio] 21.62 kg/n4Wytcalel [employer] Other [employer] Other 07-07-2022 16:30-0400Body falioj87.69 kgLawrnidia [employer] Other [employer] Other 04-05-2022 16:45-0400Body ypcgif233.91 [employer] Other [employer] Other 04-05-2022 16:45-0400Body mass index (BMI) [Ratio] 20.98 kg/g0[employer]wshajsh[employer] Other [employer] Other 04-05-2022 16:45-0400Body iygusn62.88 kgLawrence Zaira Other [employer] Other 12-30-2021 11:05-0500Body vufmbh604.91 cmAmber Iveth Other [employer] Other 12-30-2021 11:05-0500Body lckgeeccdhj02.5 [degF]Christiana Ginty Other sourceasy Other 12-30-2021 11:05-0500Diastolic blood zgimhlld591 mm[Hg]Christiana Ginty Other sourceasy Other 12-30-2021 11:05-0500Respiratory rate18 /minAmber Ginty Other sourceasy Other 12-30-2021 11:05-4893YkQ3% (BldA) [Mass fraction]98 % Christiana Ginty Other sourceasy Other 12-30-2021 11:05-0500Systolic blood alyceegw904 mm[Hg] Christiana Ginty Other sourceasy Other 12-22-2021 12:00-0500Body czvors558.91 cmRobert Chinedu II Other sourceasy Other 12-22-2021 12:00-0500Body mass index (BMI) [Ratio] 17.88 kg/m3Mvhdjx Oliver II Other sourceasy Other 12-22-2021 12:00-0500Body vpejca40.03 kgRobert Chinedu II Other [facility] [employer] Other Encounters Encounter DateEncounter TypeCare ProviderFacilityStart: 05-02-2025 End: 55-33-8847Hgdcdlx encounter procedureDanya CHATTERJEE Work Phone: noms HealthcareStart: 05-02-2025 End: 45-70-0464Cvltvcbl preventive med est patient 40-64yrsAmy Curry CHATTERJEE Work Phone: noms Kaitlin OBGYNComment on above:Well woman exam with routine gynecological exam; H/O: hysterectomy; Encounter for screening mammogram for malignant neoplasm of breast; Hormone imbalanceStart: 05-02-2025 End: 20-10-4185pitbimwtkoLGZ CURRYNot AvailableStart: 05-02-2025 End: 14-23-6796Xhjjck flowsheetDanya CHATTERJEE Work Phone: noms Kaitlin OBGYNStart: 05-02-2025 End: 88-45-9228Ckqkxv flowsheetDanya CHATTERJEE Work Phone: noms Kaitlin OBGYNStart: 05-02-2025 End: 03-66-6259Seltoqjqt Result EncounterDanya CHATTERJEE Work Phone: noms External Department UnsolicitedStart: 04-25-2025 End: 93-16-8694extlxyjhkbLymj J Aichholz NP-C Work Phone: [facility] Work Phone: Start: 04-25-2025 End: 25-92-8549Gyxunwy encounter procedureLisa Katherine Estevez NP-C-[facility] Family Medicine Jesse Work Phone: Start: 02-21-2025 End: 64-89-5422Hiqbju outpatient visit 25 minutesLisa eHrb SANDOVAL Work Phone: noms CWM FMComment on above:Primary hypertension (Primary Dx); Chronic kidney disease, stage 3b (CMS-HCC); Class 1 obesity due to excess calories with serious comorbidity in adult, unspecified BMI; Cigarette nicotine dependence without complication; Migraine without aura and without status migrainosus, not intractable ; Bipolar 2 disorder (HCC); Overweight (BMI 25.0-29.9); Bipolar II disorder (HCC)Start: 02-21-2025 End: 98-79-3175hxnqmwsbhuYVTI AICHHOLZNot AvailableStart: 02-21-2025 End: 63-68-4427Mpwovr flowsheetLisa Aichholz DIGITAL SALES EXECUTIVE Work Phone: NOMS CWM FMStart: 02-21-2025 End: 59-17-3610Xcutwq flowsheetLisa Aichholz DIGITAL SALES EXECUTIVE Work Phone: [facility] CWM FMStart: 02-09-2025 End: 42-16-4875VjxemfGwxq Aichholz DIGITAL SALES EXECUTIVE Work Phone: NOM[facility] CWM FMComment on above:Cigarette nicotine dependence without complicationStart: 01-13-2025 End: 74-90-3698YqxxcjVail Aichholz DIGITAL SALES EXECUTIVE Work Phone: NOMS CWM FMComment on above:Nausea and vomiting, unspecified vomiting type (Primary Dx)Start: 12-22-2024 End: 22-20-3473Kofxze outpatient visit 25 minutesLisa Rennoaz DIGITAL SALES EXECUTIVE Work Phone: NOVD CWM FMComment on above:Primary hypertension (Primary Dx); Chronic kidney disease, stage 3b (HCC) ([facility]/HCC); Class 1 obesity due to excess calories with serious comorbidity in adult, unspecified BMI; Anxiety; Bipolar II disorder (HCC); Cigarette nicotine dependence without complication; Migraine without aura and without status migrainosus, not intractable ; Bipolar 2 disorder (HCC)Start: 12-22-2024 End: 90-28-1664sfnniuwotaVLZV AICHHOLZNot AvailableStart: 12-21-2024 End: 07-55-1961bmeiuytbdzWydhgfluhsbDina Manning MD Work Phone: [facility] Work Phone: Start: 12-21-2024 End: 84-91-7251Dpksjso encounter procedureChinmay Manning MD Work Phone: [facility] Nephrology Jesse Work Phone: Start: 12-14-2024 End: 54-08-3802Acbfsbqku Result EncounterGeneric External Data ProviderNOMS External Department UnsolicitedStart: 12-14-2024 End: 24-23-3462Vxpzywfpu Result EncounterGeneric External Data ProviderNOMS External Department UnsolicitedStart: 87-32-0217Ihk-patient / Non-visit Chinmay Manning MD Work Phone: [facility] Work Phone: Start: 34-63-5551Fyrcjhiunc RecurringChinmay Manning MD Work Phone: [facility] CredibleStart: 09-22-2024 End: 50-94-2405Nfbjtu outpatient visit 25 minutesLisa Herb DIGITAL SALES EXECUTIVE Work Phone: noms CWM FMComment on above:Primary hypertension (CMS/HCC) (Primary Dx); Bipolar II disorder [...] lung cancer; Back spasm; Bipolar 2 disorder (CMS/HCC)Start: 09-22-2024 End: 29-80-0389jwnnuqbdkxDBEY MIKALHSUKHWINDERZNot AvailableStart: 09-22-2024 End: 21-25-7399Vkkyuc flowsheetLisa Herb DIGITAL SALES EXECUTIVE Work Phone: NOMS CWM FMStart: 09-22-2024 End: 71-34-3350Fhbttl flowsheetMargarette Estevez DIGITAL SALES EXECUTIVE Work Phone: noms CWM FMStart: 08-17-2024 End: 72-88-1401pcxtajxeopFlchjcilnrx Abdelaziz MD Work Phone: [facility] Work Phone: Start: 08-17-2024 End: 49-31-2773Qwxnrcj encounter procedureChinmay Manning MD Work Phone: [facility] Nephrology Jesse Work Phone: Start: 31-33-7405Dzn-patient / Non-visitChinmay Manning MD Work Phone: [facility] Work Phone: Start: 06-96-8147Tboxsefnxo RecurringChinmay Manning MD Work Phone: [facility]- CredibleStart: 06-23-2024 End: 44-80-1696Czimgl outpatient visit 15 minutesRosita Garza DIGITAL SALES EXECUTIVE Work Phone: noms CWM FMComment on above:Primary hypertension (CMS/HCC) (Primary Dx); Stage 3a chronic kidney disease (HCC) (CMS/HCC); Class 1 obesity due to excess calories without serious comorbidity with body mass index (BMI) of 33.0 to 33.9 in adult; Screening for hyperlipidemia; Tobacco dependency; Bipolar 2 disorder (CMS/HCC); Migraine without aura and without status migrainosus, not intractable (CMS/HCC); Back spasmStart: 06-23-2024 End: 81-74-5294xfgjprxbeyXQRMJPYN FITZPATRICKNot AvailableStart: 06-23-2024 End: 67-94-0154Jzozxo flowsheetRosita Garza DIGITAL SALES EXECUTIVE Work Phone: NOTQ CWM FMStart: 06-23-2024 End: 55-79-8207Mfqimh flowsheetBrmercymandy Garza DIGITAL SALES EXECUTIVE Work Phone: noms [facility] FMStart: 05-27-2024 End: 45-80-1650Qhjcpebbb encounterDanya CHATTERJEE Work Phone: noms BCP OBStart: 05-15-2024 End: 31-12-9691Bysbnolxi Result EncounterDanya CHATTERJEE Work Phone: noms External Department UnsolicitedStart: 05-15-2024 End: 80-04-8769Ccqihjxsp Result EncounterAmy Curry CHATTERJEE Work Phone: noms External Department UnsolicitedStart: 05-14-2024 End: 04-10-6028Isxrgjeni Result EncounterAmy Curry CHATTERJEE Work Phone: noms External Department UnsolicitedStart: 05-14-2024 End: 58-21-4905Cqdmfyzkw Result EncounterAmy Curry CHATTERJEE Work Phone: noms External Department UnsolicitedStart: 04-28-2024 End: 71-30-6358Vawexcx encounter procedureDanya CHATTERJEE Work Phone: [facility] Work Phone: Start: 04-28-2024 End: 33-58-0445Htedngwg preventive med est patient 40-64yrsAmy Curry CHATTERJEE Work Phone: noms [facility] OBComment on above:Well woman exam with routine gynecological exam; Breast cancer screening by mammogram; Postmenopausal state; Hormone imbalanceStart: 04-28-2024 End: 13-23-3509Cjgnli flowsheetDanya CHATTERJEE Work Phone: noms BCP OBStart: 04-28-2024 End: 84-69-3141Asbdhj flowsheetDanya CHATTERJEE Work Phone: noms BCP OBStart: 04-28-2024 End: 14-98-5451Comstaaib Result EncounterDanya CHATTERJEE Work Phone: noms External Department UnsolicitedStart: 03-24-2024 End: 55-45-6381Vgqzdj outpatient visit 15 minutesBrkavita Garza DIGITAL SALES EXECUTIVE Work Phone: noms CWM FMComment on above:Primary hypertension (CMS/HCC) (Primary Dx); Stage 3a chronic kidney disease (HCC) (CMS/HCC); Class 1 obesity due to excess calories without serious comorbidity with body mass index (BMI) of 33.0 to 33.9 in adult; Tobacco dependency; Bipolar 2 disorder (CMS/HCC)Start: 03-24-2024 End: 08-51-5260Wzfbyy flowsheetMadaymandy Theodorek DIGITAL SALES EXECUTIVE Work Phone: noms CWM FMStart: 03-24-2024 End: 51-29-4984Cfhgut flowsheetAdinkavita Garza DIGITAL SALES EXECUTIVE Work Phone: noms CWM FMStart: 03-17-2024 End: 41-07-9224dtqjcjmfweZSMD Chinmay Manning Work Phone: [facility] Work Phone: Start: 03-17-2024 End: 22-58-1537Xsuegvg encounter procedureMD Chinmay Manning Work Phone: [facility] Nephrology Ran[place] Work Phone: Start: 80-11-9098Ljn-patient / Non-visitMD Chinmay Manning Work Phone: [facility] Work Phone: Start: 82-40-6872Dripyqcfda RecurringMD Chinmay Manning Work Phone: [facility]- CredibleStart: 12-09-2023 End: 24-85-4877gngqephjibDZMD Chinmay Manning Work Phone: [facility] Work Phone: Start: 12-09-2023 End: 31-15-5141Tejoqcj encounter procedureMD Chinmay Manning Work Phone: [facility] Nephrology Jesse Work Phone: Start: 40-84-9701Lltpaumuea RecurringMD AbdiChinmayrichard Manning Work Phone: [facility] CredibleStart: 08-25-2023 End: 06-53-2078Fnfwvqukt Result EncounterSmary Hernandes MD Work Phone: noms External Department UnsolicitedStart: 08-25-2023 End: 97-64-1856Xezwcxkya Result EncounterSmary Hernandes MD Work Phone: noms External Department UnsolicitedStart: 08-22-2023 End: 37-83-9412ccmhqmfafuKkjma Qadir Other [place] [employer] Other Start: 28-83-5901Kherkbjvk Result EncounterSmary Hernandes MD Work Phone: noms External Department UnsolicitedStart: 08-22-2023 Clinisync Result EncounterSmary Hernandes MD Work Phone: noms External Department UnsolicitedStart: 08-22-2023 Telephone encounterAbdmariano ColesPG Urgent Care ClydeStart: 06-27-2023 End: 30-10-3981Taduzngdu Result EncounterSmary Hernandes MD Work Phone: noms External Department UnsolicitedStart: 06-27-2023 End: 76-10-4325Qyhjitfmq Result EncounterSmary Hernandes MD Work Phone: noms External Department UnsolicitedStart: 07-02-2022 End: 88-00-3963ybudiqxjqkDDUSBVOU CULLENFacility:T0Zkerr: 06-07-2022 End: 70-93-1672scrwcnuwhbPV ETHAN HOUSEFacility:C9Uqiqp: 01-28-2022 End: 95-47-3589amjnscrfpcVqtcwnhf Zaira Other noStratoscale Other Start: 51-98-7394Fnzheziti encounterLawrence Zaira FPG GastroenterologyStart: 01-17-2022 End: 96-05-8588gdyomjxmpgHnicdfes Zaira Other noStratoscale Other Start: 46-53-0295Vxprrx outpatient visit 15 minutes Bahman MenesesFPG GastroenterologyStart: 11-09-2021 End: 63-35-3736ztsnxcdnyaTalimxua Zaira Other noStratoscale Other Start: 01-29-2296Tudljfhwp encounterLawrence Zaira [facility] GastroenterologyStart: 10-16-2021 End: 72-84-3284vhygdebdzhMubjgmbn Zaira Other noStratoscale Other Start: 96-45-0935Ypifsg outpatient visit 15 minutes Bahman MarinelliG GastroenterologyStart: 10-10-2021 End: 63-46-3942Yrgfdbwgg department patient visitCharles HouseFacility:[facility] Hospitaltart: 07-28-2021 End: 43-69-4016Kgcqxvykim and management of [facility] Hospitaltart: 07-12-2021 End: 38-42-5682bwlzahnomtUfsfu Ginty Other 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 a Dealer [employer] Other Start: 22-89-6855Qxtytr outpatient visit 15 minutes Christiana JansenyFPG Urgent Care ClydeStart: 07-04-2021 End: 35-84-7426mfyacgyufzDrszie Oliver II Other [facility] [employer] Other Start: 06-68-0747Nqudxq outpatient new 30 minutes Justin Che IIG [facility] Procedures DateProcedureProcedure DetailPerforming ClinicianStart: 91-09-6437DMT,APTIMA HPV,AGE GDLNDanya CHATTERJEE Work Phone: Start: 90-42-5717FefruswwbyvDrvc Aichholz DIGITAL SALES EXECUTIVE Work Phone: Start: 85-68-5398EEYB CBC WITH PLATELET NO DIFFERENTIALGeneric External Data ProviderStart: 61-98-0950OKG URINALYSISGeneric External Data ProviderStart: 68-97-0006MH DEXA AXIAL SKELETONDanya CHATTERJEE Work Phone: Start: 26-71-3500CB TOMOSYNTHESIS SCREENING BIDanya CHATTERJEE Work Phone: Start: 12-81-4737LqbanzcokutGwq Ramey PA Work Phone: Start: 44-90-4207XOH,APTIMA HPV,AGE GDLNDanya CHATTERJEE Work Phone: Start: 24-93-6568Ensoqvgsggc observation [Identifier] in Cervix by Cyto stainMargarette Estevez DIGITAL SALES EXECUTIVE Work Phone: Start: 17-24-7371FNC TEST, EXTERNALCorey Arminda DO Work Phone: Start: 01-27-5502Uvn abdomen w/o & w/contrast material Shaikh Cecilio WALKER Work Phone: Start: 44-64-5534WJP Hossein Hernandes MD Work Phone: Start: 08-76-5248QQQ Julia Hernandes MD Work Phone: Start: 28-87-7514DE RENAL Steve Hernandes MD Work Phone: H/O: hysterectomyH/O: hysterectomyDanya CHATTERJEE Work Phone: Plan of Treatment DateCare ActivityDetailAuthorStart: 94-88-4582Ssueakatv for malignant neoplasm of colonNOMS HealthcareStart: 76-21-1073Fiihabuht for malignant neoplasm of cervixNOMS HealthcareStart: 05-11-2026 End: 90-23-7179Xccmino encounter aynmhctpb07/29/2026 3:00 PM EDT Procedure Visit ZENA RIOS [address] [place] [id number] Danya Najera PA [address] [place] [address] NOMDiana MCKEONGYNStart: 05-14-2025 Screening for malignant neoplasm of breastMammogramNOMS HealthcareStart: 05-02-2025 End: 04-10-0448Gapszwa encounter procedureNOMS BCP OBComment on above:Arrived Start: 05-02-2025 End: 84-79-7556MX Breast - bilateral ScreeningBilateral screening mammogram Imaging Routine Encounter for screening mammogram for malignant neoplasm of breast Expected: 05/02/2025 (Approximate), Expires: 07/02/2026[facility] Work Phone: comment on above:Expected: 05/02/2025 (Approximate), Expires: 07/02/2026Start: 04-25-2025 End: 56-78-2042Bfzjubz encounter mfjuvrfda95/13/2025 5:00 PM EDT Office Visit ZENA RIVERA FM [address] [place] [phone] Margarette Estevez NP [address] [place] [phone] ZENA RIVERA FMStart: 64-93-3217Tzyjxbdwn vaccinationNOMS HealthcareStart: 02-21-2025 End: 32-19-6795Xftotsl encounter procedureNOMS GUZMANM FMComment on above:Primary hypertension (Primary Dx); Chronic kidney disease, stage 3b (CMS-HCC); Class 1 obesity due to excess calories with serious comorbidity in adult, unspecified BMI; Cigarette nicotine dependence without complicationStart: 12-22-2024 End: 18-81-4383Ccujell encounter eegmgslxn68/11/2025 6:00 PM EDT Office Visit NOMS [facility] [address] [place] [address] Margarette Estevez, DIGITAL SALES EXECUTIVE [address] [place] [address] NOMS [facility] FMStart: 38-27-6439Wptayzcxv vaccinationInfluenza Vaccine (#1)NOM HealthcareComment on above:Postponed from 03/14/2024 (Patient Refused)Start: 09-22-2024 End: 44-38-7981Efgfilu encounter /12/2025 3:20 PM EDT Office Visit NOMS [facility] [address] [place] [address] Margarette Estevez, JAIME [address] [place] [address] Primary hypertension (CMS/HCC) (Primary Dx); Bipolar II [...] to nuts (other than peanuts); Mixed hyperlipidemia (CMS/HCC)NOMS [facility] FMComment on above:Primary hypertension (CMS/HCC) (Primary Dx); Bipolar II disorder [...] to nuts (other than peanuts); Mixed hyperlipidemia (CMS/HCC)Start: 06-23-2024 End: 42-90-1415Suuagxd encounter procedureNOSELECT [facility] [place] FMComment on above:Arrived Start: 04-28-2024 End: 13-34-8696Hqzcgui encounter foolelerz79/16/2024 3:00 PM EDT Office Visit NOMS [facility] [address] [place] [address] Danya Najera PA [address] [place] [address] ArrivedNOMS [facility] OBComment on above:ArrivedStart: 04-28-2024 End: 25-45-2001CJA Skeletal system Views for bone densityDEXA bone density Imaging Routine Postmenopausal state Expected: 04/28/2024 (Approximate), Expires:04/28/2025NONV HealthcareComment on above:Expected: 04/28/2024 (Approximate), Expires: 04/28/2025Start: 04-28-2024 End: 84-64-7223BA Breast - bilateral ScreeningBilateral screening mammogram Imaging Routine Breast cancer screening by mammogram Expected: 04/28/2024, Expires: 06/28/2025NONV Healthcare Work Phone: comment on above:Expected: 04/28/2024, Expires: 06/28/2025Start: 03-24-2024 End: 30-63-0877Lzwregv encounter /11/2024 5:00 PM EDT Office Visit NOMS [facility] [address] [place] [address] Rosita Garza NP [address] [place] [address] ArrivedNOSELECT [facility] [facility] [place] FMComment on above:ArrivedStart: 03-14-2024 Influenza vaccinationInfluenza Vaccine (#1)[facility] HealthcareStart: 11-17-2023 End: 47-08-0261Xdtlobe encounter tmmmolavt56/06/2024 5:00 PM EDT Office Visit NOMDiana RIVERA IM [address] [place] [address] Shaikh Hernandes MD [address] [place] [address] ZENA Maricarmen IMStart: 22-66-3966Takfgggiu for malignant neoplasm of breastMammogramNOMS HealthcareComment on above:Postponed from 2003 (Insurance / Financial)Start: 67-61-4955Vknqpadxi vaccinationInfluenza Vaccine (#1)[facility] HealthcareStart: 09-53-6177Etffbtqnr for malignant neoplasm of breast MammogramNOMS HealthcareStart: 72-72-6994Dgjlovebp for malignant neoplasm of cervixNOMS HealthcareStart: 15-76-6468Exfjicgav for malignant neoplasm of cervix Pap SmearNOMS HealthcareStart: 05-27-1964Medicare Annual Wellness (AWV)Medicare Annual Wellness (AWV)[facility] HealthcareStart: 66-99-2280Sbcjajygg for malignant neoplasm of colonNOMS HealthcareRenal function 1999 panel - Serum or Plasma [facility] HospitalRen[facility] function 1999 panel - Serum or Plasma [facility] HospitalRenal function 1999 panel - Serum or Plasma [facility] HospitalRenal function 1999 panel - Serum or Plasma White HospitalTHIN PREP TIS PAP AND HR HPV DNATHIN PREP TIS PAP AND HR HPV DNA Pathology and Cytology Routine Well woman exam with routine gynecological exam Ordered: 04/28/2024NONV HealthcareComment on above:Ordered: 04/28/2024THIN PREP TIS PAP AND HR HPV DNATHIN PREP TIS PAP AND HR HPV DNA Pathology and Cytology Routine Well woman exam with routine gynecological exam H/O: hysterectomy Ordered: 05/02/2025[facility] HealthcareComment on above:Ordered: 05/02/2025[facility] Immunizations Immunization DateImmunizationNotesCare KjduptyvIdnlllmy32-50-5459ygttmys and diphtheria toxoids, adsorbed, preservative free, for adult use (5 Lf of tetanus toxoid and 2 Lf of diphtheria toxoid)Christiana Susieyevgeniyrobi Other [facility] [employer] Other Payers DatePayer CategoryPayerPolicy [id number] Cross Blue Shield [id number] [id number] 2022Medicare [id number] 2022Medicare (Managed Care) [id number] [id number] 2..840.1.657195.3.57[id number] 2..840.1.482439.3.57[id number] 2..840.1.849021.3.57[id number] 2..840.1.262307.3.57[id number] 2.16.840.1.572191.3.579.[id number] 2..0.1.138716.3.57[id number] 2..840.1.329934.3.579.[id number] 2..0.1.515608.3.579.2.1259 [id number] [id number] 2..840.1.762915.19Self-paySelf Pay [id number] Social History DateTypeDetailFacilityUnknown if ever smokedChesapeake [employer] Other Start: 08-18-2023 End: 61-14-6905Ejt Assigned At [facility] [employer] Other Start: 07-14-1983 End: 10-67-1833Vlqxrsh smoking status NHISSmokes tobacco dailyNOMS Healthcare Start: 22-18-8377Xsdtteb of tobacco useCigarette SmokerNOMS HealthcareStart: 06-16-2023 End: 65-29-0282Iccaiobuhh smoked current (pack per day) - Reported0.5NOMS HealthcareStart: 06-16-2023 End: 18-13-9066Agtmerk use and exposureSmokeless tobacco non-userNOMS Healthcare Start: 08-18-2023 End: 36-02-6050Quhdbrs intakeLifetime non-drinker (finding)NOMS HealthcareStart: 97-13-9166Bbx Assigned At BirthNot on fileNONV HealthcareStart: 12-09-2023 End: 31-83-0112Jugzkfj smoking status NHISSmoker (finding)[facility]tart: 22-48-8336Ddn Assigned At BirthFeEast Ohio Regional Hospitaltart: 08-17-2024 End: 76-16-6383IksYqkems (finding)[facility] Hospitaltart: 42-82-1903FfkZmxfxlWNDUMcLeod Regional Medical Center Medical Equipment Procedure CodeEquipment CodeEquipment Original TextEquipment IdentifierDates Capsule endoscopy, for patency of lumen evaluationVideo capsule endoscopy system ()[id number](21)[id number]-GSH-2 FDAStart: 08-16-2019 Functional Status VkanAdkotlmuykYnzlytQmvpzhqv95-45-1535Ilcobht Health Questionnaire 2 item (PHQ- 2) [Reported][facility] Clinical Notes 04-08-2014 to 05-02-2025 Note Date & OiwrVffkZmflpkrb22-12-0490 History of Present illness Narrative* SHENA Stubbs - 05/02/2025 3:00 PM EDT Reason for Appointment: Patient ID: Millicent Lay is a 59 y.o. female who presents [...] [Sulfamethoxazole-Trimethoprim] Bee Pollen Bee Venom Hives Black [place] Flavoring Agent (Non-Screening) Walnuts Ciprofloxacin Hives Codeine [...] (HCC) 09/22/2024 Chronic kidney disease, stage 3b ([facility]-HCC) 09/22/2024 Cigarette nicotine dependence without complication 09/22/2024 Colon cancer screening 09/22/2024 Mixed hyperlipidemia 09/22/2024 Encounter for screening for lung cancer 09/22/2024 Nausea and vomiting 01/13/2025 Overweight (BMI 25.0-29.9) 02/21/2025 Resolved Ambulatory Problems Diagnosis Date Noted Stage 3a chronic kidney disease ([facility]) 06/16/2023 Tobacco dependency 06/16/2023 Bipolar 2 disorder (HCC) 11/17/2023 Screening for hyperlipidemia 02/12/2024 Screening for [...] nursing note reviewed. Exam conducted with a cooperage shop supervisor present. Vitals: Estimated body mass index is 28.18 kg/m as calculated from the following: Height as of 12/11/24: 5' 6 . Weight as of 02/21/25: [...] behalf of: SHENA Stubbs documented in this encounterCenterpoint Medical CenterQihicuqhza77-83-5456 Evaluation note* Diagnosis Primary hypertension- Primary Unspecified [...] breast Hormone imbalance documented in this encounter [facility] CenterVmdbwxcgid23-33-7110 History of Present illness Narrative* Margarette Estevez NP - 02/21/2025 6:47 PM EDTAssociated Problem(s): Bipolar II disorder (HCC) Follow with [facility] * Margarette Estevez NP - 02/21/2025 6:47 PM EDTAssociated Problem(s): Overweight (BMI 25.0-29.9) Has lost about 35 pounds since 03/06 Has made dietary changes as well * ALEJANDRO EVANGELISTA - 02/21/2025 6:00 PM EDT Here for refills * Margarette Estevez NP - 02/21/2025 6:00 PM EDT Images from the original note were not included. Millicent Lay is a 59 y.o. female presents with [...] [Sulfamethoxazole-Trimethoprim] Bee Pollen Bee Venom Hives Black [place] Flavoring Agent (Non-Screening) Walnuts Ciprofloxacin Hives Codeine [...] of the risks of continued smoking: stroke, OR, all forms of cancer, lung disease, and . Options for quitting smoking include: cold turkey, hypnosis, acupuncture, nicotine replacement meds(gum, lozenges, and patches), Buproprion, and Varenicline. At this time pt is encouraged to evaluate their goals for wanting to quit smoking, and reach out toprovider when ready to start this process Is doing well w chantix Fu in 2 months Relevant Medications varenicline (Chantix) [...] of the risks of continued smoking: stroke, OR, all forms of cancer, lung disease, and . Options for quitting smoking include: cold turkey, hypnosis, acupuncture, nicotine replacement meds(gum, lozenges, and patches), Buproprion, and Varenicline. At this time pt is encouraged to evaluate their goals for wanting to quit smoking, and reach out toprovider when ready to start this process Is doing well w chantix Fu in 2 months * Margarette Estevez [...] EDTAssociated Problem(s): Chronic kidney disease, stage 3b ([facility]) Follows with Nephrology Recommend tight blood pressure control Limit nephrotoxic drugs 08/07: cr 1.69 * Margarette Estevez NP - 02/21/2025 6:59 AM EDTAssociated Problem(s): Primary hypertension Please check blood pressure daily and record DASH diet Limit caffeine Take medication as directed Contact office if chest pain, pressure, dizziness, shortness of breath, swelling legs Recommend slow position changes Current meds: losartan documented in this [facility]08-11-2025 Instructions* Patient Instructions* Margarette Estevez NP - 02/21/2025 6:00 PM EDT Keep up the great work documented in this [facility]08-11-2025 Evaluation note* Diagnosis Primary hypertension- Primary Unspecified essential hypertension Stage 3a chronic kidney disease ([facility]) Migraine without aura and without status migrainosus, not intractable Tobacco dependency Tobacco use disorder Primary hypertension- Primary Unspecified essential hypertension Stage 3a chronic kidney disease ([facility]) Abnormal renal ultrasound Primary hypertension- Primary Unspecified essential hypertension Stage 3a chronic kidney disease ([facility]) Tobacco dependency Tobacco use disorder Bipolar 2 [...] essential hypertension Stage 3a chronic kidney disease ([facility]) Class 1 obesity due to excess calories without serious comorbidity with body mass index (BMI) of 33.0 to 33.9 in adult Tobacco dependency Tobacco use disorder Bipolar 2 disorder (HCC) Other bipolar disorders Primary hypertension- Primary Unspecified essential hypertension Stage 3a chronic kidney disease ([facility]) Class 1 obesity due to excess calories [...] bipolar disorders Chronic kidney disease, stage 3b ([facility]) Class 1 obesity due to excess calories [...] essential hypertension Chronic kidney disease, stage 3b ([facility]) Class 1 obesity due to excess calories with serious comorbidity in adult, unspecified BMI Anxiety Anxiety state, unspecified Bipolar II disorder (HCC) Other bipolar disorders Cigarette nicotine dependence without complication Migraine without aura and without status migrainosus, not intractable Bipolar 2 disorder (HCC) Other bipolar disorders Primary hypertension- Primary Unspecified essential hypertension Chronic kidney disease, stage 3b ([facility]) Class 1 obesity due to excess calories with serious comorbidity in adult, unspecified BMI Cigarette nicotine dependence without complication Migraine without aura and without status migrainosus, not intractable Bipolar 2 disorder (HCC) Other bipolar disorders Overweight (BMI 25.0-29.9) Overweight Bipolar II disorder (HCC) Other bipolar disorders [id number] Evaluation note* Diagnosis Primary hypertension- Primary Unspecified [...] dependence without complication [facility] [id number] Evaluation note* Diagnosis Primary hypertension- Primary Unspecified [...] vomiting type- Primary [facility] [id number] History of Present illness Narrative* ALEJANDRO EVANGELISTA - 12/22/2024 6:00 PM EDT Pt has gotten the okay from her counselor and rn operating room to allow her to go on chantix She would like to get off of cyclobenzaprine 10mg does not feel like it is helping therefore she ended up not taking it does not need a replacement Pt has been doing exercises and stretches before bed that seems to help she states that if it becomes worse she will let her pcp know * Margarette Estevez, JAIME - 12/22/2024 6:00 PM EDT Images from the original note were not included. Millicent Lay is a 59 y.o. female presents with [...] [Sulfamethoxazole-Trimethoprim] Bee Pollen Bee Venom Hives Black [place] Flavoring Agent (Non-Screening) Walnuts Ciprofloxacin Hives Codeine [...] of the risks of continued smoking: stroke, OR, all forms of cancer, lung disease, and [...] of the risks of continued smoking: stroke, OR, all forms of cancer, lung disease, and [...] Problem(s): Chronic kidney disease, stage 3b (HCC) ([facility]) Follows with Nephrology Recommend tight blood pressure control Limit nephrotoxic drugs 08/07: cr 1.69 * Margarette Estevez NP - 12/22/2024 7:45 AM EDTAssociated Problem(s): Primary hypertension Please check blood pressure daily and record DASH diet Limit caffeine Take medication as directed Contact office if chest pain, pressure, dizziness, shortness of breath, swelling legs Recommend slow position changes Current meds: losartan documented in this [facility]06-11-2025 Instructions* Patient Instructions* Margarette Estevez NP - [...] office if these occur. documented in this [facility]06-11-2025 Evaluation note* Diagnosis Primary hypertension- Primary Unspecified essential hypertension Stage 3a chronic kidney disease (HCC) ([facility]) Migraine without aura and without status migrainosus, not intractable Tobacco dependency Tobacco use disorder Primary hypertension- Primary Unspecified essential hypertension Stage 3a chronic kidney disease (HCC) ([facility]) Abnormal renal ultrasound Primary hypertension- Primary Unspecified essential hypertension Stage 3a chronic kidney disease (HCC) ([facility]) Tobacco dependency Tobacco use disorder Bipolar [...] hypertension Stage 3a chronic kidney disease (HCC) ([facility]CC) Class 1 obesity due to excess calories without serious comorbidity with body mass index (BMI) of 33.0 to 33.9 in adult Tobacco dependency Tobacco use disorder Bipolar 2 disorder (HCC) Other bipolar disorders Primary hypertension- Primary Unspecified essential hypertension Stage 3a chronic kidney disease (HCC) ([facility]) Class 1 obesity due to excess calories [...] disorders Chronic kidney disease, stage 3b (HCC) ([facility]) Class 1 obesity due to excess calories [...] hypertension Chronic kidney disease, stage 3b (HCC) ([facility]) Class 1 obesity due to excess calories with serious comorbidity in adult, unspecified BMI Anxiety Anxiety state, unspecified Bipolar II disorder (HCC) Other bipolar disorders Cigarette nicotine dependence without complication Migraine without aura and without status migrainosus, not intractable Bipolar 2 disorder (HCC) Other bipolar disorders documented in this encounter [facility] [id number] History of Present illness Narrative* Margartete Estevez, JAIME - 09/22/2024 5:53 PM EDTAssociated Problem(s): Encounter [...] smoking cessation. Declines CT scan * ALEJANDRO EVANGELISTA - 09/22/2024 3:20 PM EDT Pt states [...] of the risks of continued smoking: stroke, OR, all forms of cancer, lung disease, and [...] changes Current meds: losartan documented in this [facility]03-12-2025 Instructions* Patient Instructions* Margarette Estevez NP - 09/22/2024 3:20 PM EDT No medication changes documented [facility] this [facility] [id number] Evaluation note* Diagnosis Primary hypertension ([facility]CC)- Primary Unspecified essential hypertension Stage 3a chronic kidney disease (HCC) ([facility]) Migraine without aura and without status migrainosus, not intractable ([facility]) Tobacco dependency Tobacco use disorder Primary hypertension ([facility])- Primary Unspecified essential hypertension Stage 3a chronic kidney disease (HCC) ([facility]CC) Abnormal renal ultrasound Primary hypertension ([facility])- Primary Unspecified essential hypertension Stage 3a chronic kidney disease (HCC) ([facility]) Tobacco dependency Tobacco use disorder Bipolar 2 disorder ([facility]) Other bipolar disorders Allergic reaction to bee sting Screening for hyperlipidemia- Primary Screening for lipoid disorders Screening for diabetes mellitus Primary hypertension ([facility]) Unspecified essential hypertension Tobacco dependency Tobacco use disorder Class 1 obesity due to excess calories without serious comorbidity with body mass index (BMI) of 33.0 to 33.9 in adult Primary hypertension ([facility]/HCC)- Primary Unspecified essential hypertension Stage 3a chronic kidney disease (HCC) ([facility]/HCC) Class 1 obesity due to excess calories without serious comorbidity with body mass index (BMI) of 33.0 to 33.9 in adult Tobacco dependency Tobacco use disorder Bipolar 2 disorder ([facility]CC) Other bipolar disorders Primary hypertension ([facility])- Primary Unspecified essential hypertension Stage 3a chronic kidney disease (HCC) ([facility]) Class 1 obesity due to excess calories without serious comorbidity with body mass index (BMI) of 33.0 to 33.9 in adult Screening for hyperlipidemia Screening for lipoid disorders Tobacco dependency Tobacco use disorder Bipolar 2 disorder ([facility]) Other bipolar disorders Migraine without aura and [...] Other bipolar disorders [facility] [id number] History of Present illness Narrative* Rosita Garza [...] LEUKOCYTE ESTERASE URINE NEGATIVE R Resulting Agency [facility] CKD: Follows closely with Nephrology. Avoid NSAIDS, [...] Visit Stage 3a chronic kidney disease (HCC) ([facility]) Follows closely with Nephrology. Avoid NSAIDS, Nephrotoxic [...] (Flexeril) 10 MG tablet documented in this [facility] [id number] Telephone encounter Note* Telephone Encounter - SHENA Stubbs - 05/27/2024 3:10 PM EST Spoke with patient regarding dexa scan results. Patient wishes to start using fosamax weekly. We discussed how to take and issue or concerns regarding acid reflux. Patient would like to try and if necessary may need to change to IV infusion of prolia [facility] [id number] Miscellaneous Notes* Telephone Encounter - SHENA Stubbs - 05/27/2024 3:10 PM EST Spoke with patient regarding dexa scan results. Patient wishes to start using fosamax weekly. We discussed how to take and issue or concerns regarding acid reflux. Patient would like to try and if necessary may need to change to IV infusion of prolia documented in this encounter[facility] [id number] History of Present illness Narrative* SHENA Stubbs [...] [Sulfamethoxazole-Trimethoprim] Bee Pollen Bee Venom Hives Black [place] Flavor Walnuts Ciprofloxacin Hives Codeine Depakote [Valproic Acid] Dilaudid [Hydromorphone] E.E.S. [Erythromycin] Hydrocodone-Acetaminophen Lyrica [Pregabalin] Phenergan [Promethazine] Sulfamethoxazole Hives PROBLEMS Active Ambulatory Problems Diagnosis Date Noted Stage 3a chronic kidney disease (HCC) ([facility]) 06/16/2023 Primary hypertension ([facility]) 06/16/2023 Migraine without aura and without status migrainosus, not intractable ([facility]) 06/16/2023 Tobacco dependency 06/16/2023 Anxiety 07/28/2021 Allergy to nuts (other than peanuts) 08/18/2023 Abnormal renal ultrasound 08/18/2023 Bipolar 2 disorder ([facility]) 11/17/2023 Screening for hyperlipidemia 02/12/2024 Screening for [...] nursing note reviewed. Exam conducted with a cooperage shop supervisor present. Vitals: Estimated body mass index is [...] behalf of: SHENA Stubbs documented in this encounter[facility] [id number] History of Present illness Narrative* Rosita Garza [...] Problem(s): Bipolar 2 disorder (CMS/HCC) Follows in [place]. Mood is stable, denies depressive symptoms. On [...] them to next visit. 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 Mood is stable, denies depressive symptoms. On [...] options for weight loss. documented in this [facility]09-11-2024 Instructions* Patient Instructions* Rosita Garza NP - [...] of vigorous aerobic activity documented in this [facility]07-18-2022 Evaluation note* Encounter Date Diagnosis Assessment Notes Treatment Notes Treatment Clinical Notes Jan, GERD (gastroesophageal reflux di sease) (ICD-10 - K21.9) [facility] Other 07-07-2022 Evaluation note* Encounter Date Diagnosis Assessment Notes Treatment Notes Treatment Clinical Notes Jan, Diarrhea (ICD-10 - R19.7) Continue Dicyclomine Jan,GERD (gastroesophageal reflux disease) (ICD-10 - K21.9) Continue Omeprazole without change [facility] Other 04-29-2022 Evaluation note* Encounter Date Diagnosis Assessment Notes Treatment Notes Treatment Clinical Notes Oct, GERD (gastroesophageal reflux di sease) (ICD-10 - K21.9) [facility] Other 04-05-2022 Evaluation note* Encounter Date Diagnosis Assessment Notes Treatment Notes Treatment Clinical Notes Oct, Diarrhea, unspecified (ICD-10 - R19.7) CONTINUE DICYCLOMINE DIRECTED RTO 3 MONTHS Oct,GERD (gastroesophageal reflux disease) (ICD-10 - K21.9)STOP CARAFATE [facility] Other 12-30-2021 Evaluation note* Encounter Date Diagnosis Assessment Notes Treatment Notes Treatment Clinical Notes Jun, Laceration of left m iddle finger without foreign body without damage to nail, initial encounter (ICD-10 - S61.213A) -5 sutures were placed in finger today -Tetanus injection provided in office -Return to [facility] or f/u with PCP for removal in 7-10 days -Keep dressing in place for the next 48 hours, unless it gets dirty or wet, then change dressing, apply nonstick telfa -After 48 hours may keep REPEATER CHIEF unless risk of getting dirty or irritated [...] With Stitches: Care Instructions material was printed [facility] Other 12-22-2021 Evaluation note* Encounter Date Diagnosis Assessment Notes Treatment Notes Treatment Clinical Notes Jun, Sprain of other liga ment of left ankle, initial encounter (ICD-10 - S93.492A) Jun,OtherI had a long discussion with the patient regarding the etiology of her left ankle pain. I feel thatnichelle has a mild ankle sprain. I educated her on rest, ice, compression, elevation therapy. Recommended that she continue with [id number] oral anti-inflammatories. Informed her that she can weight- bear as tolerated. Discussed some exercises with her for ankle sprain rehabilitation. I did recommend that we get her some formal physical therapy but she denied this that she does not want to venture out of the house. Furthermore, we provided her with educational pieces regarding ankle sprains. Al so recommended that she follow-up with her primary care provider in regards to some of her spasms and MS . I will plan to see her back in 4 weeks to check on her progress. [facility] Other 09-26-2014 History general Narrative - Reported* Type Description Date Medical History 04-08-14 EGD with biopsy, colonos copy Medical HistoryDepressionMedical HistoryInsomniaMedical HistoryAnxietyMedical HistoryMS (multiple sclerosis)Medical HistoryRenal cystMedical HistoryDDD (degenerative disc disease)Medical HistoryMigrainesMedical Historystage 2 chronic kidney diseaseMedical HistoryRUQ abdominal painMedical History ConstipationMedical HistoryDecreased appetiteMedical HistoryErosive gastritis Medical HistoryHernia, HiatalMedical HistoryLipomaMedical HistoryDiarrhea, unspecifiedMedical HistoryDiarrhea, unspecified typeMedical HistoryEGD and Colonoscopy September 2017Medical HistoryC-DIFF 11/2019Surgical Historyhysterectomy Surgical HistorygallbladderSurgical HistoryappendecctomySurgical Historytubes tied/ reversedSurgical Historyadhesions removedSurgical Historycolonoscopy Surgical HistoryEGDHospitalization Historysee aboveHospitalization HistoryMS Hospitalization HistoryTBH OBSERVATION FOR ANGINA [facility] Other 09-26-2014 History general Narrative - Reported* Type Description Date Medical History 04-08-14 EGD with biopsy, colonos copy Medical HistoryDepressionMedical HistoryInsomniaMedical HistoryAnxietyMedical HistoryMS (multiple sclerosis)Medical HistoryRenal cystMedical HistoryDDD (degenerative disc disease)Medical HistoryMigrainesMedical Historystage 2 chronic kidney diseaseMedical HistoryRUQ abdominal painMedical History ConstipationMedical HistoryDecreased appetiteMedical HistoryErosive gastritis Medical HistoryHernia, HiatalMedical HistoryLipomaMedical HistoryDiarrhea, unspecifiedMedical HistoryDiarrhea, unspecified typeMedical HistoryEGD and Colonoscopy September 2017Medical HistoryC-DIFF 11/2019Medical Historybowel resection Surgical HistoryhysterectomySurgical HistorygallbladderSurgical History appendecctomySurgical Historytubes tied/ reversedSurgical Historyadhesions removedSurgical HistorycolonoscopySurgical HistoryEGDHospitalization Historysee aboveHospitalization HistoryMSHospitalization HistoryTBH OBSERVATION FOR ANGINA [facility] [employer] Other Evaluation noteNo InformationNortBelmont Behavioral Hospital [employer] Other Evaluation note* Diagnosis Onset Date Resolution Status Chronic kidney disease, stage 3b acuteHypertensive nephropathyacuteLesion of left jena kidneyacute [facility] Work Phone: Evaluation note* Diagnosis Onset Date Resolution Status Chronic kidney disease, stage 3b acuteHypertensive nephropathyacuteHypomagnesemiaacuteLesion of left jena kidneyacute [facility] Work Phone: Evaluation note* Diagnosis Primary hypertension ([facility]/HCC)- Primary Unspecified essential hypertension Stage 3a chronic kidney disease (HCC) ([facility]) Migraine without aura and without status migrainosus, not intractable ([facility]) Tobacco dependency Tobacco use disorder Primary hypertension ([facility]/HCC)- Primary Unspecified essential hypertension Stage 3a chronic kidney disease (HCC) ([facility]/HCC) Abnormal renal ultrasound Primary hypertension ([facility]/HCC)- Primary Unspecified essential hypertension Stage 3a chronic kidney disease (HCC) ([facility]/HCC) Tobacco dependency Tobacco use disorder Bipolar 2 disorder ([facility]/HCC) Other bipolar disorders Allergic reaction to bee sting Screening for hyperlipidemia- Primary Screening for lipoid disorders Screening for diabetes mellitus Primary hypertension ([facility]) Unspecified essential hypertension Tobacco dependency Tobacco use disorder Class 1 obesity due to excess calories without serious comorbidity with body mass index (BMI) of 33.0 to 33.9 in adult Primary hypertension (CMS/HCC)- Primary Unspecified essential hypertension Stage 3a chronic kidney disease (HCC) ([facility]/HCC) Class 1 obesity due to excess [...] hypertension Stage 3a chronic kidney disease (HCC) ([facility]/HCC) Migraine without aura and without status migrainosus, not intractable (CMS/HCC) Tobacco dependency Tobacco use disorder Primary hypertension (CMS/HCC)- Primary Unspecified essential hypertension Stage 3a chronic kidney disease (HCC) (CMS/HCC) Abnormal renal ultrasound Primary hypertension ([facility]/HCC)- Primary Unspecified essential hypertension Stage 3a chronic kidney disease (HCC) ([facility]/HCC) Tobacco dependency Tobacco use disorder Bipolar 2 disorder ([facility]/HCC) Other bipolar disorders Allergic reaction to bee sting Screening for hyperlipidemia- Primary Screening for lipoid disorders Screening for diabetes mellitus Primary hypertension ([facility]/HCC) Unspecified essential hypertension Tobacco dependency Tobacco use disorder Class 1 obesity due to excess calories without serious comorbidity with body mass index (BMI) of 33.0 to 33.9 in adult Primary hypertension (CMS/HCC)- Primary Unspecified essential hypertension Stage 3a chronic kidney disease (HCC) ([facility]/HCC) Class 1 obesity due to excess [...] hypertension Stage 3a chronic kidney disease (HCC) ([facility]/HCC) Migraine without aura and without status migrainosus, not intractable (CMS/HCC) Tobacco dependency Tobacco use disorder Primary hypertension (CMS/HCC)- Primary Unspecified essential hypertension Stage 3a chronic kidney disease (HCC) (CMS/HCC) Abnormal renal ultrasound Primary hypertension (CMS/HCC)- Primary Unspecified essential hypertension Stage 3a chronic kidney disease (HCC) ([facility]/HCC) Tobacco dependency Tobacco use disorder Bipolar 2 disorder ([facility]/HCC) Other bipolar disorders Allergic reaction to bee sting Screening for hyperlipidemia- Primary Screening for lipoid disorders Screening for diabetes mellitus Primary hypertension ([facility]/HCC) Unspecified essential hypertension Tobacco dependency Tobacco use disorder Class 1 obesity due to excess calories without serious comorbidity with body mass index (BMI) of 33.0 to 33.9 in adult Primary hypertension ([facility]/HCC)- Primary Unspecified essential hypertension Stage 3a chronic kidney disease (HCC) ([facility]/HCC) Class 1 obesity due to excess calories without serious comorbidity with body mass index (BMI) of 33.0 to 33.9 in adult Tobacco dependency Tobacco use disorder Bipolar 2 disorder ([facility]/HCC) Other bipolar disorders Primary hypertension ([facility]/HCC)- Primary Unspecified essential hypertension Stage 3a chronic kidney disease (HCC) ([facility]/HCC) Class 1 obesity due to excess calories without serious comorbidity with body mass index (BMI) of 33.0 to 33.9 in adult Screening for hyperlipidemia Screening for lipoid disorders Tobacco dependency Tobacco use disorder Bipolar 2 disorder ([facility]/HCC) Other bipolar disorders Migraine without aura and without status migrainosus, not intractable ([facility]CC) Back spasm Other symptoms referable to back [facility]* Diagnosis Onset Date Resolution Status Admit Date Chronic kidney disease, stage 3b acuteFebruary 2024 3:52pmCigarette smokeracuteFebruary 2024 3:52pm Hypertensive nephropathyacuteFebruary 2024 3:52pmHypomagnesemiaacute February 2024 3:52pmLesion of left jena kidneyacuteFebruary 2024 3:52pm [facility] Work Phone: Evaluation note* Diagnosis Onset Date Resolution Status Admit Date Chronic kidney disease, stage 3b acuteJune 2024 3:51pmCigarette smokeracuteJune 2024 3:51pm Hypertensive nephropathyacuteJune 2024 3:51pmHypomagnesemiaacuteJune 2024 3:51pmLesion of left jena kidneyacuteJune 2024 3:51pm [facility] Work Phone: Evaluation note* Diagnosis Onset Date Resolution Status Admit Date Asthma acuteOctober 2024 4:46pmChronic kidney disease, stage 3bacuteOctober 2024 4:46pmEssential hypertensionacuteOctober 2024 4:46pmFormer smoker acuteOctober 2024 4:46pmMigraineacuteOctober 2024 4:46pm [facility] Work Phone: Reason for referral (narrative)No reason for referral information availableWestern Reserve Hospital Work Phone: Summary Purpose Family History Relationship Condition Age at Onset Recorded Date/T manuel Not Specified Hypertension Unknown Congestive heart failureUnknownHeart diseaseUnknownbrotherHeart diseaseUnknown sisterHeart diseaseUnknownbrotherDiabetes mellitusUnknownfatherDeceasedUnknown Motor vehicle accidentUnknownfamily memberDeceasedUnknownNot SpecifiedHeart diseaseUnknownDeceasedUnknownHypertensionUnknownsisterDeceasedUnknown Relationship Condition Age at Onset Recorded Date/T manuel mother Hypertension Unknown Congestive heart failureUnknownHeart diseaseUnknownbrotherHeart diseaseUnknown sisterHeart diseaseUnknownbrotherDiabetes mellitusUnknownfatherDeceasedUnknown Motor vehicle accidentUnknownfamily memberDeceasedUnknownmotherHeart disease UnknownDeceasedUnknownHypertensionUnknownsisterDeceasedUnknown Advance Directives Advance Directive Response Recorded Date/ Time Advance Directives No May 9:58am Advance Directive Response Recorded Date/ Time Advance Directives No May 8:58am Chief Complaint and Reason for Visit Chief Complaint CKD 3Reason for VisitChronic kidney disease, stage 3b Hypertensive nephropathy Lesion of left jena kidney Chief Complaint RENAL 3 MONTH F/UReason for VisitChronic kidney disease, stage 3b Hypertensive nephropathy Hypomagnesemia Lesion of left jena kidney Chief Complaint Admit Date July 29, 2024 3 :50pm RENAL 4 MONTH F/U August 17, 2024 3 :52pm Reason for Visit Admit Date Chronic kidney disease, stage 3b [id number] 3:52pm Cigarette smoker August 17, 2024 3 :52pm Hypertensive nephropathy August 17, 2 025 3:52pm Hypomagnesemia August 17, 2024 3 :52pm Lesion of left jena kidney August 3:52pm Chief Complaint Admit Date October 22, 2024 3:0 8pm RENAL 4 MONTHS December 21, 2024 3:51 pm Reason for Visit Admit Date Chronic kidney disease, stage 3b December 212024 3:51pm Cigarette smoker December 21, 2024 3:51 pm Hypertensive nephropathy December 21, 2024 3:51pm Hypomagnesemia December 21, 2024 3:51 pm Lesion of left jena kidney December 21, 2024 3:51pm Chief Complaint [...] section and content) DATE CREATED AUTHOR 08/08/2021 [facility] DATE CREATED AUTHOR AUTHOR'S ORGANIZ ATION 08/17/2022 [facility] DATE CREATED AUTHOR AUTHOR'S ORGANIZ ATION 11/27/2022 [facility] DATE CREATED AUTHOR AUTHOR'S ORGANIZ ATION 05/03/2025 [facility] EPIC REASON FOR VISIT (unrecogniz ed section and content) ReasonCommentsWell Women VisitReasonCommentsFollow-upReasonCommentsHypertension ReasonCommentsMed RefillReasonCommentsGynecologic Exam Care Teams (unrecognized sec tion and content) Team MemberRelationshipSpecialtyStart DateEnd Date Shaikh Hernandes MD [address] [place] [address] PCP - GeneralInternal Medicine08/11/23 Margarette Estevez, JAIME [address] [place] [address] Nurse Pract[facility]erSaint [facility] Mfhsgkhq91/13/23 Team Status: Active Member Role Status Dates Ethan Licona DO Primary Care Provider Active Team Status: Active Member Role Status Dates Chinmay Manning MD Attending Provider Active Start: September 25, 2023 Team Status: Inactive Member Role Status Dates Debby Dominguez MD Attending Provider Active Star t: December 09, 2023 End: December 08[facility] ProviderActiveStart: December 09, 2023 End: December 09, 2023 Team Status: Active Member Role Status Dates Chinmay Manning MD Attending Provider Active Start: December 26, 2023 Team Status: Active Member Role Status Olamide Licona DO Primary Care Provider Active Start: February 21, 2024 Mack Morillo ProviderActiveStart: February 21, 2024 Team Status: Inactive Member Role Status Olamide Licona DO Primary Care Provider Active Start: March 17, 2024 End: March 17Mack Damon ProviderActiveStart: March 17, 2024 End: March 17, 2024Team MemberRelationshipSpecialtyStart DateEnd Date Shaikh Hernandes MD [address] [place] [address] PCP - GeneralInternal Medicine08/11/23 Margarette Estevez NP [address] [place] [address] [facility]05/26/23Team MemberRelationshipSpecialtyStart DateEnd Date Shaikh Hernandes MD [address] [place] [address] [facility] - [facility]08/11/23 Margarette Estevez NP [address] [place] [address] [facility]05/26/23Team MemberRelationshipSpecialtyStart DateEnd Date Shaikh Hernandes MD [address] [place] [address] PCP - [facility]08/11/23 Margarette Estevez NP [address] [place] [address] Nurse [facility]05/26/23Team MemberRelationshipSpecialtyStart DateEnd Date Shaikh Hernandes MD [address] [place] [address] [facility]08/11/23 Shaikh Hernandes MD [address] [place] [address] PCP - [facility]04/13/24 Margarette Estevez NP [address] [place] [address] [facility]05/26/23Team MemberRelationshipSpecialtyStart DateEnd Date Shaikh Hernandes MD [address] [place] [address] PCP - GeneralInternal Medicine08/11/23 Margarette Estevez NP [address] [place] [address] [facility]05/26/23Team MemberRelationshipSpecialtyStart DateEnd Date Shaikh Hernandes MD [address] [place] [address] PCP - GeneralInternal Medicine08/11/23 Shaikh Hernandes MD [address] [place] [address] PCP - [place] Vgzhrzymfx54/1/24 Margarette Estevez NP [address] [place] [address] Nurse Pract[facility]erE[facility]05/26/23Te MemberRelationshipSpecialtyStart DateEnd Date Shaikh eHrnandes MD [address] [place] [address] PCP - GeneralInternal Medicine08/11/23 Shaikh Hernandes MD [address] [place] [address] PCP - [place] Ddyffkkrxc11/1/24 Margarette Estevez NP [address] [place] [address] [facility]05/26/23Team MemberRelationshipSpecialtyStart DateEnd Date Shaikh Hernandes MD [address] [place] [address] PCP - GeneralInternal [facility]08/11/23 Margarette Estevez NP [address] [place] [address] [facility]05/26/23 Team Status: Active Member Role Status Dates Rosita Garza NP-C Primary Care Provider Ac tive Team Status: Active Member Role Status Dates Chinmay Manning MD Attending Provider Active Start: July 29, 2024 Team Status: Active Member Role Status Dates Ethan Licona DO Primary Care Provider Active Start: August 07, 2024 Edith Morilloending ProviderActiveStart: August 07, 2024 Team Status: Inactive Member Role Status Dates Debby Dominguez MD Attending Provider Active Star t: August 17, 2024 End: August 17rilorena Garza NP-[facility] ProviderActive Start: August 17, 2024 End: August 17, 2024Team MemberRelationshipSpecialtyStart DateEnd Date Shaikh Hernandes MD [address] [place] [address] [facility] - [facility]/11/23 Shaikh Hernandes MD [address] [place] [address] PCP - [facility]04/13/24 Margarette Estevez NP [address] [place] [address] Nurse [facility]er[facility]05/26/23Team MemberRelationshipSpecialtyStart DateEnd Date Shaikh Hernandes MD [address] [place] [address] PCP - [facility]08/11/23 Shaikh Hernandes MD [address] [place] [address] PCP - [facility]04/13/24 Margarette Estevez NP [address] [place] [address] [facility]05/26/23 Team Status: Active Member Role Status Dates Margarette Estevez Primary Care Provider Active Team Status: Active Member Role Status Dates Chinmay Manning MD Attending Provider Active Start: October 22, 2024 Team Status: Active Member Role Status Dates Rosita Garza NP-C Primary Care Provider Ac tive Start: December 14, 2024 Debby Dominguez MDAttbowen ProviderActiveStart: December 14, 2024 Team Status: Inactive Member Role Status Dates Debby Dominguez MD Attending Provider Active Star t: December 21, 2024 End: December 21, 2024Margarette EstevezFillmore [facility] Care ProviderActiveStart: December 21, 2024 End: December 21, 2024Team MemberRelationshipSpecialtyStart DateEnd Date Shaikh Hernandes MD [address] [place] [address] PCP - GeneralInternal Medicine08/11/23 Margarette Estevez, JAIME [address] [place] [address] Nurse Pract[facility]erSaint [facility] Kmniuyhd01/13/23Team MemberRelationshipSpecialtyStart DateEnd Date Shaikh Hernandes MD [address] [place] [address] PCP - GeneralInternal Medicine08/11/23 Margarette Estevez NP [address] [place] [address] Nurse [facility]erE[facility]05/26/23Te MemberRelationshipSpecialtyStart DateEnd Date Shaikh Hernandes MD [address] [place] [address] PCP - GeneralInternal Medicine08/11/23 Margarette Estevez NP [address] [place] [address] Nurse Pract[facility]erE[facility]05/26/23Te MemberRelationshipSpecialtyStart DateEnd Date Shaikh Hernandes MD [address] [place] [address] PCP - GeneralInternal Medicine08/11/23 Margarette Estevez NP [address] [place] [address] Nurse Pract[facility]er[facility]05/26/23Team MemberRelationshipSpecialtyStart DateEnd Date Shaikh Hernandes MD [address] [place] [address] [facility]08/11/23 Margarette Estevez NP [address] [place] [address] Nurse Pract[facility]er[facility]05/26/23Team MemberRelationshipSpecialtyStart DateEnd Date Shaikh Hernandes MD [address] [place] [address] PCP - [facility]08/11/23 Margarette Estevez NP [address] [place] [address] [facility]05/26/23 Team Status: Active Member Role Status Dates Margarette Estevez NP-Janice Primary Care Provider Active Team Status: Inactive Member Role Status Dates Margarette Estevez NP-C Primary Care Provider Active Start: April 25, 2025 End: April 25, 2025Margarette Estevez NP-CAttending ProviderActiveStart: April 25, 2025 End: April 25, 2025Team MemberRelationshipSpecialtyStart DateEnd Date Madhu Murphy MD PCP - [facility]02/22/25 Margarette Estevez NP [facility]er[facility]05/26/23Team MemberRelationshipSpecialtyStart DateEnd Date Madhu Murphy MD PCP - [facility]02/22/25 Margarette Estevez NP [facility] Pract[facility]erE[facility]05/26/23Te MemberRelationshipSpecialtyStart DateEnd Date Madhu Murphy MD PCP - [facility]02/22/25 Margarette Estevez NP Nurse PractitionerE[facility]05/26/23Te MemberRelationshipSpecialtyStart DateEnd Date Madhu Murphy MD PCP - [facility] Vikphebm84/1/231 Shaikh Hernandes MD PCP - [facility]Co[facility]nal [facility] Shaikh Hernandes MD [address] [place] [address] PCP - [place] Qryskstypw69/1/244 Madhu Murphy MD [address] [place] [address] PCP - [facility]Saint [facility] Medicine02/22/25 Margarette Estevez NP Nurse PractitionerFaokly Ojrdbyyx49/13/23Team MemberRelationshipSpecialtyStart DateEnd Date Shaikh Hernandes MD PCP - GeneralInternal Medicine Shaikh Hernandes MD [address] [place] [address] PCP - [place] Hqsjruzssn21/1/244 Madhu Murphy MD [address] [place] [address] PCP - GeneralFamily Medicine02/22/25 Margarette Estevez NP Nurse PractitionerSaint [facility] Zlezoyiz60/13/23Team MemberRelationshipSpecialtyStart DateEnd Date Shaikh Hernandes MD PCP - GeneralInternal Medicine Shaikh Hernandes MD [address] [place] [address] PCP - [place] Dnppnqoldx08/1/244 Madhu Murphy MD [address] [place] [address] PCP - GeneralFamily Medicine02/22/25 Margarette Estevez NP Nurse PractitionerFacollis p. [facility] Ufoxqrgg68/13/23 Goals (unrecognized section and content) Goals may [...] BE BASED ON THE PRIMARY CLINICAL RECORDS. [facility]. provides no warranty or guarantee of the accuracy or completeness of information in this document.
== END 2025-05-20 11:16 | disposition home or self-care (01) ==
LOC: MAMMO 11:15
PROVIDERS: PCP Nurse Practitioner; Visit Provider Physician Assistant
DX: Z12.31 Encounter for screening mammogram for malignant neoplasm of breast (principal); Z80.3 Family history of malignant neoplasm of breast; Z80.8 Family history of malignant neoplasm of other organs or systems
CPT/HCPCS: 77063; 77067

== ENCOUNTER 2025-06-18 08:58 | Outpatient (OUT) | payer BC, OTHER, SELFPAY ==
[2025-06-18 09:20] LABS: Hematocrit 44.2 % (36.0-48.0); Hemoglobin 14.9 g/dL (12.0-16.0); Mean Corpuscular HGB Conc 33.7 g/dL (29.9-35.2); Mean Corpuscular Hemoglobin 31.4 pg (26.7-34.0); Mean Corpuscular Volume 93.2 fL (81.0-99.0); Platelet Count 238 10^3/uL (150-450); Red Blood Count 4.74 10^6/uL (4.20-5.40); White Blood Count 6.4 10^3/uL (4.0-11.0)
[2025-06-18 09:43] LABS: Glucose Urine UA NEGATIVE (NEGATIVE)
[2025-06-18 09:45] LABS: Albumin Level 3.9 g/dL (3.4-5.0); Anion Gap 15.7; Blood Urea Nitrogen 15.0 mg/dL (7.0-18.0); Calcium 8.8 mg/dL (8.5-10.1); Carbon Dioxide 23.2 mmol/L (21.0-32.0); Chloride 104 mmol/L (98-107); Estimated GFR (African America 46 (>=60 mL/min/1.73m^2); Estimated GFR (Non-African Ame 38 (>=60 mL/min/1.73m^2); Glucose 99 mg/dL (74-106); Magnesium 2.0 mg/dL (1.8-2.4); Potassium 3.9 mmol/L (3.5-5.1); Sodium 139 mmol/L (136-145); Uric Acid 3.3 mg/dL (2.6-6.0)
[2025-06-18 09:54] LABS: Protein Creatinine Ratio Urine 0.13; Total Protein Urine Random 8.6 mg/dL (<=11.9)
--- OUTSIDE RECORDS SUMMARY | 2025-06-21 10:39 | XMS_ITS | CCD ---
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 Role Phone ELIANE BEEBE Admitting Unavailable [...] Attending Provider Chinmay Manning MD Attending Provider Herb SANDOVAL-Margarette Camacho Primary Care Provider [phone] Herb SANDOVAL-C, Margarette J Attending Provider [phone] Margarette Estevez NP Unavailable Mdahu Murphy MD Primary Care Provider MARGARETTE ESTEVEZ Attending Unavailable MARGARETTE ESTEVEZ Attending Unavailable ROSITA GARZA Attending Unavailabl e MARGARETTE ESTEVEZ Attending Unavailable DANYA NAJERA Attending Unavailable Madhu Murphy MD Primary Care Provider Shaikh Hernandes MD Primary Care Provider [phone] Cecilio WALKER, Unavailable Madhu Murphy MD Primary Care Provider [phone] Allergies Allergy ClassificationReported Allergen(s)Allergy TypeDate of OnsetReaction(s) FacilityAnti-Epileptic Agents (1 source)gabapentinDrug Pmwthbr15-74-2862JljhntwduAshtabula County Medical Center Dihydrofolate Reductase Inhibitors (antibiotic) (1 source)TrimethoprimDrug Jevwbhq90-29-0236LjyaiKrdwzyfweLakeHealth Beachwood Medical CenterOpioid Agonists (2 sources)HYDROmorphoneDrug Ainsxgd02-85-9151tfvk, HivesAshtabula County Medical Centerpeanut allergenic extract (1 source)peanut allergenic extractDrug Indxpjx30-87-7438KncdAnonkmicgAdams County HospitalPollen (1 source)Bee pollenSubstance Wpxubgm06-78-0321RkhkrhomcgsInvulhaef Regional Medical Centerpregabalin (1 source)pregabalinDrug Ehamlke23-47-5774Pmjhjri ReactionAshtabula County Medical CenterPromethazine (1 source)PromethazineDrug Izaiyux86-99-7298BhwcGdsqtfmitAdams County HospitalQuinolones (antibiotic) (1 source)CiprofloxacinDrug Xgizbqe15-73-2838zhlofau, nauseaOhio State University Wexner Medical Centerulfonamides (antibiotic) (1 source)SulfamethoxazoleDrug Zhbwnyo63-50-5480MgojrZwbriknegLakeHealth Beachwood Medical CenterUnclassified (1 source)codeine, depakote, bactrium, sAllergy to lavpxbptw75-33-9575MwfotmbehAshtabula County Medical CenterUnclassified (5 sources)walnutsAllergy to ritrehwwj33-40-8863VxpilaecotaTrjjnfjax Regional Medical CenterValproate (1 source)ValproateDrug Dlztais33-71-6210myanabl, nauseaAshtabula County Medical Center (1 source)tree nut, unspecified; Translations: [TREE NUTS]Propensity to adverse reactions to drug (disorder)26-95-0258[facility] (1 source)BEE VENOM PROTEIN (HONEY BEE); Translations: [BEE VENOM PROTEIN (HONEY BEE)]Propensity to adverse reactions to drug (disorder)61-06-0848AuzaSelect [facility] [place] [facility] (20 sources)CiprofloxacinDrug Jgxqiib22-53-3074WojlaKmgbp [employer] Other (11 sources)gabapentinDrug Tsdtsuu82-71-9663Alkhkvt, Unknown ReactionAshtabula County Medical Center (20 sources)HYDROmorphoneDrug Mqudkjh50-30-9174Edaqqgc, [facility] [employer] Other (11 sources)pregabalinDrug Fptdtyy23-26-9988Oxhrcuc, Unknown ReactionAshtabula County Medical CenterComment on above:pain worse (7 sources)codeine, depakote, bactrium, sulfa, bees walnutsPropensity to adverse reactionsNaval Hospital [employer] Other (1 source)Acetaminophen / HYDROcodoneDrug Btlycsz59-80-0913Kis [facility] Repository (1 source)bee venomDrug allergy (disorder)51-68-3665Xou [facility] Repository (5 sources)CodeineDrug Deqdzvv09-69-3081HubvmPws [facility] Repository (1 source)HYDROmorphoneDrug Cwhexvx61-21-8189BsoParkview Health [facility] Repository (1 source)Sulfamethoxazole / TrimethoprimDrug Unxngiv80-47-5754Zqn [facility] Repository (1 source)ValproateDrug Prsthff72-81-5742VwoParkview Health [facility] Hospital Repository (1 source)Misc-Food; Translations: [Misc-Food]Food allergy (disorder)11-02-2014 [facility] Repository (20 sources)Acetaminophen / HYDROcodoneDrug Oklpiye94-37-2562QFAZ Healthcare (20 sources)Bee pollenPropensity to adverse igwvkducj87-51-3365MvykfektudjUULS Healthcare (20 sources)CodeineDrug Fhaynwo07-40-9587ZHZS Healthcare (20 sources)ErythromycinDrug Bkbvqfj98-36-5065VIIP [facility] (20 sources)Honey bee venomPropensity to adverse eqzemaqok15-16-1992HehtzGEWB Healthcare Work Phone: (20 sources)PregabalinPropensity to adverse oekktdlnw18-98-3780ECZJ Healthcare (20 sources)PromethazineDrug Ivippdz20-98-4132YsggYZJD Healthcare (20 sources)SulfamethoxazoleAllergy to wwialaudf23-65-3690FrrmtVMGH Healthcare (20 sources)Sulfamethoxazole / TrimethoprimDrug Qewpejo52-26-7286TKGY Healthcare (20 sources)ValproateDrug Nfviqqc32-26-8128UEVA [facility] (9 sources)[place] FlavorPropensity to adverse pcjgrophn49-39-7274GAIA [facility] (20 sources)OtherPropensity to adverse weazfoydz55-15-7990Tojvf, Shortness of breath, SwellingSaint [facility]'s [facility] (4 sources)peanut allergenic extractDrug Gtzgmrz00-32-4651SecaJzimswklvAshtabula County Medical Center (4 sources)TrimethoprimDrug Ahoiwwt54-10-5318GeubfHamytuerwAshtabula County Medical Center (4 sources)ValproateDrug Qikafvj35-93-6075wrrvyxu, nauseaAshtabula County Medical Center (20 sources)[place] Flavoring Agent (Non-Screening)Propensity to adverse tzqbvxmip25-39-8235BCNM Healthcare Medications Current Medications MedicationDrug Class(es)DatesSig (Normalized)Sig (Original)alosetron 0.5 mg oral tablet (1 source)Serotonin-3 Receptor AntagonistStart: 90-79-9105udpb 1 tablet by mouth every twenty-four hoursAlosetron HCl 0.5 MG 1 tablet Orally daily for 30 days Jul, ActiveBiotin (3 sources)Biotin ActiveCalcium & Magnesium Carbonates (3 sources)Calcium & Magnesium Carbonates ActiveCentrum Silver 50+Women (1 source)Centrum Silver 50+Women Activecyclobenzaprine hydrochloride 10 mg oral tablet (20 sources)Muscle RelaxantStart: 90-26-5850majy 1 tablet by mouth once daily at bedtime as neededCyclobenzaprine 10 mg tablet Active 10 MG PO Daily at bedtime as needed April 25, 2025 5:26pm Complies with drug therapyStart: 03-24-2024 End: 93-19-8122smgf 0.5 tablet by mouth at bedtimecyclobenzaprine (Flexeril) 10 MG tablet Indications: Back spasm Take 0.5 tablets (5 mg) by mouth atbedtime 30 tablet 3 09/22/2024 ActiveStart: 12-09-2023 End: 22-21-3739xqup 1 tablet by mouth three times daily as neededCyclobenzaprine 10 mg tablet Discontinued 10 MG PO Three times daily as needed December 09, 2023 12:00am April 25, 2025 5:27pm End: 34-29-2609eiua 5 mg by mouth three times daily as needed for muscle spasms cyclobenzaprine (Flexeril) 10 MG tablet Take 5 mg by mouth 3 (three) times a day as needed for muscle spasms. 03/24/2024 Discontinued (Dose adjustment) Elderberry preparation (3 sources)Elderberry Fgssyzksa904391 0.3 ml EPINEPHrine 1 mg/ml auto-injector (20 sources)alpha-Adrenergic Agonist, beta-Adrenergic Agonist, Catecholamine Start: 00-03-9368Ughdcdqocyb 0.3 mg/0.3 mL auto-injector Active 0.3 ML [...] mg oral tablet (20 sources)EstrogenStart: 12-09-2023 End: 08-37-5591eulp 1 tablet by mouth once dailyestradiol (Estrace) 1 MG tablet Indications: Hormone imbalance Take 1 tablet (1 mg) by mouth Daily 90 tablet 3 05/02/2025 04/27/2026 Activelosartan potassium 100 mg oral tablet (20 sources)Angiotensin 2 Receptor BlockerStart: 08-11-2023 End: 92-42-0732zpsf 1 tablet by mouth once dailylosartan (Cozaar) 100 MG tablet Indications: Primary hypertension Take 1 tablet (100 mg) by mouth Daily 90 tablet 1 02/21/2025 05/22/2025 ActiveMagnesium (3 sources)Magnesium Activemagnesium oxide 400 mg oral tablet (20 sources)Start: 50-07-0029ldzg 1 tablet by mouth once dailyMagnesium Oxide 400 mg (241.3 mg magnesium) tablet Active 0 .ROUTE .COMPLEX February 16, 2025 10:18am TAKE 1 TABLETBY MOUTH EVERY DAY Complies with drug therapyStart: 08-24-2024 End: 82-67-5589chfd 1 tablet by mouth once dailyMagnesium Oxide 400 mg (241.3 mg magnesium) tablet Discontinued 0 .ROUTE .COMPLEX August 9:56am February 16, 2025 10:18am TAKE 1 TABLETBY MOUTH EVERY DAYStart: 56-00-2671afkd 1 tablet by mouth once dailyMagnesium Oxide 400 mg (241.3 mg magnesium) tablet Active 0 .ROUTE .COMPLEX August 24, 2024 9:56am TAKE 1 TABLETBY MOUTH EVERY DAYStart: 03-17-2024 End: 08-36-7057gpxc 1 tablet by mouth once dailymagnesium oxide (Mag-Ox) 400 (240 Mg) MG tablet Take 400 mg by mouth Daily 03/17/2024 ActiveMulti For Her 50+ (3 sources)Multi For Her 50+ Activemupirocin 0.02 mg/mg topical ointment (1 source)RNA Synthetase Inhibitor AntibacterialStart: 48-63-1586Kgfjfralt 2 % 1 application Externally Twice a day for 5 day(s) Jun, Activeomeprazole 20 mg delayed release oral capsule (20 sources)Proton Pump InhibitorStart: 04-12-7589dcyq 1 capsule by mouth once dailyOmeprazole 20 mg capsule,delayed release(DR/EC) Active 20 MG PO Daily December 09, 2023 12:00am Complies with drug therapyondansetron 4 mg disintegrating oral tablet (1 source)Serotonin-3 Receptor AntagonistStart: 01-13-2025 End: 14-59-9360yoya 1 tablet by mouth every eight hours for nauseaondansetron ODT (Zofran-ODT) 4 MG disintegrating tablet Indications: Nausea and vomiting, unspecified vomiting type Take 1 tablet (4 mg) by mouth every 8 (eight) hours if needed for vomiting or nausea for up to 5 days 15 tablet 01/13/2025 01/18/2025 Uzupee52 hr paliperidone 3 mg extended release oral tablet (20 sources)Atypical AntipsychoticStart: 12-09-2023 End: 17-03-8278tqob 1 tablet by mouth once daily in [...] hydrochloride 10 mg/ml rectal foam (1 source)Start: 20-20-3672Bzxjaozkjh 1 % as directed Rectal PRN for 30 day(s) Jun, Activetopiramate 100 mg oral tablet (20 sources)Start: 09-23-2017 End: 70-32-2467ureh 1 tablet by mouth once dailytopiramate (Topamax) [...] mg oral tablet (20 sources)Serotonin Reuptake InhibitorStart: 83-10-6915eofk 2 tablets by mouth once daily at bedtimeTrazodone 100 mg tablet Active 200 MG PO Daily at bedtime December 09, 2023 12:00am Complies with drugtherapyStart: 30-37-8994brot 200 mg by mouth once daily at bedtimeTrazodone Active 200 MG PO Daily at bedtime December 09, 2023 12:00amStart: 09-23-2017 End: 63-29-7647Cxrtlllqx 150 mg tablet Discontinued 50 MG PO Bedtime September 23, 2017 12:00am December 09, 2023 3:28pmStart: 09-23-2017 End: 51-98-0406mfem 50 mg by mouth at bedtimeTrazodone Discontinued 50 MG PO Bedtime September 23, 2017 12:00am December 09, 2023 3:28pmtake 1-2 tablets by mouth once dailytraZODone HCl 50 MG 1-2 TABLETS Orally Once a day ActiveTurmeric extract (3 sources)Turmeric Activevarenicline 1 mg oral tablet (19 sources)Partial Cholinergic Nicotinic AgonistStart: 12-22-2024 End: 01-55-6146wdxe 1 tablet by mouth in the morningvarenicline (Chantix) 1 MG tablet Indications: Cigarette nicotine dependence without complication Take 1 tablet (1 mg) by mouth in the morning and 1 tablet (1 mg) before bedtime. Take with full glassof water. 60 tablet 2 02/21/2025 ActiveStart: 12-22-2024 End: 09-37-7074Oxbaxppirbo Tartrate, Starter, 0.5 MG X 11 & 1 MG X 42 tablet therapy pack Indications: Cigarette nicotine dependence without complication Take 1 Package by mouth Daily Use as directed 42 each 12/22/2024 02/09/2025 Discontinued (Therapy completed)Start: 11-06-3614Bkixpaoqgps Tartrate, Starter, 0.5 MG X 11 & 1 MG X 42 tablet therapy pack Indications: Cigarette nicotine dependence without complication Take 1 Package by mouth Daily Use as directed 42 each 12/22/2024 Active Completed/Discontinued Medications MedicationDrug Class(es)DatesSig (Normalized)Sig (Original)alendronic acid 70 mg / cholecalciferol 5600 unt oral tablet (20 sources)Bisphosphonate, Vitamin DStart: 04-22-2025 End: 06-26-4062ikgu 1 tablet by mouth every weekAlendronate-Vitamin D3 70 mg- 5,600 unit tablet Discontinued 1 TAB PO every week April 222:00am April 25, 2025 5:26pmStart: 05-27-2024 End: 61-46-2096hgut 70-5600 tablets by mouth in the morningalendronate- [...] mg oral tablet (7 sources)Start: 07-13-2020 End: 74-29-1350Wdytwnpct 10 mg tablet Discontinued 10 MG PO As Directed July 13, 2020 1:00am December 09, 2023 3:31pmBuSpar Activetake 1 tablet by mouth twice dailyBuSpar 10 MG 1 tablet Orally Twice a day Activecitalopram 20 mg oral tablet (7 sources)Serotonin Reuptake InhibitorStart: 07-13-2020 End: 11-32-7877Qxhqvqpphy 20 mg tablet Discontinued 20 MG PO As Directed July 13, 2020 1:00December 0843:31pmCitalopram Hydrobromide Active dicyclomine hydrochloride 10 mg oral capsule (12 sources)AnticholinergicStart: 08-16-2019 End: 14-97-9833umcr 1 capsule by mouth three times dailyDicyclomine 10 mg Capsule Discontinued 10 MG PO Three times daily August 16, 2019 1:00am December 09, 2023 3:31pmStart: 44-54-9927qdiv 1 tablet by mouth every twenty-four hours Dicyclomine HCl 20 mg 1 tablet Orally once a day for 30 days Apr, Active take 1 tablet by mouth every eight hoursDicyclomine HCl 20 MG 1 tablet Orally Three times a day Active1 ml erenumab-aooe 70 mg/ml auto-injector (6 sources)Start: 07-13-2020 End: 48-20-4709Ferebnwg-Aooe (Aimovig Autoinjector) 70 mg/mL auto-injector Discontinued 70 MG SUBCUT As Directed July 13, 2020 1:00am December 09, 2023 3:31pminject 70 mg by subcutaneous injection every monthAimovig 70 MG/ML as directed Subcutaneous ONCE A MONTH Activeestrogens, conjugated (nursing home) 0.625 mg oral tablet (17 sources)EstrogenStart: 07-13-2020 End: 21-96-8577zjcn 1 tablet by mouth once dailyConjugated Estrogens (Premarin) 0.625 mg tablet Discontinued 0.625 MG PO Daily July 13, 2020 1:00am December 09, 2023 3:31pmStart: 09-23-2017 End: 39-44-1241klzl 1 tablet by mouth once dailyConjugated Estrogens 0.625 mg tablet Discontinued 0.625 MG PO Daily September 23, 2017 12:00am August 16, 2019 7:38am24 hr nicotine 0.292 mg/hr transdermal system (20 sources)Cholinergic Nicotinic AgonistStart: 06-23-2024 End: 17-77-1002vmylawtd (Nicoderm, Step 3) 7 MG/24HR patch Indications: Tobacco dependency Place 1 patch over 24 hours on the skin 1 (one) time each day at the same time 14 patch 06/23/2024 02/09/2025 Discontinued (Therapy completed)Start: 03-24-2024 End: 17-51-9079wvaiykxl polacrilex ([facility] Nicotine Polacrilex) 4 MG lozenge Indications: Tobacco dependency Dissolve1 lozenge (4 mg) in the mouth every 2 (two) hours if needed for smoking cessation 100 lozenge 03/24/2024 06/23/2024 Discontinued (Med list cleanup)Start: 80-15-3580Nhyntajq Active TRANSDERML March 17, 2024 12:00amStart: 02-12-2024 End: 86-00-3040tjqoh 1 dose transdermal route every twenty-four hoursNicotine 21 mg/24 hr patch 24 hour Discontinued TRANSDERML March 17, 2024 12:00am April 25, 2025 5:26pmStart: 02-12-2024 End: 89-11-8066ryvje 1 dose transdermal route every twenty-four hoursnicotine (Nicoderm CQ) 14 MG/24HR patch Indications: Tobacco dependency Place 1 patch over 24 hourson the skin 1 (one) time each day at the same time Use after patient has used 21 mg dose. 14 patch 06/23/2024 09/22/2024 Discontinued (Therapy completed)sertraline 100 mg oral tablet (5 sources)Serotonin Reuptake InhibitorStart: 09-23-2017 End: 59-54-1661lzqb 1 tablet by mouth once dailySertraline 100 mg tablet Discontinued 100 MG PO Daily September 23, 2017 12:00am July 13, 2020 1:21pm sucralfate 1000 mg oral tablet (9 sources)Aluminum ComplexStart: 09-23-2017 End: 96-68-1092fnwq 1 tablet by mouth four times dailySucralfate 1 gram tablet Discontinued 1 TAB PO Four times daily September 23, 2017 12:00am December 09, 2023 3:31pmStart: 09-23-2017 End: 47-41-9829hqvw 1 tablet by mouth four times dailySucralfate Discontinued 1 TAB PO Four times daily September 23, 2017 12:00am December 09, 2023 3:31pmCarafate Activetake 1 capsule by mouth twice dailySucralfate 1 GM 1 capsule Oral twice times a day for 30 days ActivetiZANidine 4 mg oral tablet (6 sources)Central alpha-2 Adrenergic AgonistStart: 07-13-2020 End: 20-99-5545Awhwkkmrva 4 mg tablet Discontinued 4 MG PO As Directed July 13, 2020 1:00am December 09, 2023 3:31pmtiZANidine HCl Active Problems Active Problems Problem ClassificationProblemDateDocumented DateEpisodic/ChronicAbdominal pain (14 sources)Right upper quadrant pain; Translations: [Right upper quadrant pain] EpisodicAnal and rectal conditions (7 sources)Rectal pain; Translations: [Other specified diseases of anus and rectum]EpisodicAnxiety disorders (20 sources)Anxiety; Translations: [Anxiety disorder, unspecified]Onset: 784379-17-3723GbztueiPjqkjz (6 sources)Asthma; Translations: [Unspecified asthma, uncomplicated]10-10-2021 ChronicChronic kidney disease (20 sources)Chronic kidney disease stage 2; Translations: [Chronic kidney disease, stage 2 (mild)]Onset: 06-16-2023 Resolved: 475668-82-5418VihnincJqltcleke of lipid metabolism (20 sources)Mixed hyperlipidemia; Translations: [Mixed hyperlipidemia]Onset: 905137-71-8752ZiwpsiqQ Codes: Fall (5 sources)Fall (on) (from) other stairs and steps, initial encounter; Translations: [Fall down stairs]18-74-8553QjtupzdmQaoggzltnw disorders (11 sources)Gastroesophageal reflux disease; Translations: [Gastro-esophageal reflux disease without esophagitis]Onset: 10-16-2021 Resolved: 50-96-3815VhrrovmQdtlefask hypertension (20 sources)Essential hypertension; Translations: [Essential (primary) hypertension]Onset: 122148-27-7549OxpwrbmCzauuokhp and duodenitis (7 sources)Gastritis; Translations: [Gastritis, unspecified, without bleeding] EpisodicGastrointestinal hemorrhage (20 sources)Dark stools; Translations: [Melena]66-76-6162XtunaezmOtqqmajd; including migraine (20 sources)Migraine without aura, not refractory ; Translations: [Migraine without aura, not intractable, without status migrainosus]Onset: 06-16-2023 97-33-9574DnxerxeTvaulmrt; including migraine (7 sources)Headache; Translations: [Headache]EpisodicHemorrhoids (7 sources)Hemorrhoids; Translations: [Unspecified hemorrhoids]Episodic Hypertension with complications and secondary hypertension (9 sources)Hypertensive renal disease; Translations: [Hypertensive chronic kidney disease with stage 1 throughstage 4 chronic kidney disease, or unspecified chronic kidney disease]23-98-5330CnswftgRhjhsytmlg infection (14 sources)Clostridial enteric disease; Translations: [Enterocolitis due to Clostridium difficile, not specified as recurrent]EpisodicMalaise and fatigue (14 sources)Fatigue; Translations: [Other fatigue]EpisodicMood disorders (20 sources)Bipolar II disorder; Translations: [Bipolar II disorder]Onset: 11-17-2023 Resolved: 583907-03-9098IcdzfbsPgvmggfaendtd gastroenteritis (14 sources)Microscopic colitis; Translations: [Other specified noninfective gastroenteritis and colitis]EpisodicNonspecific chest pain (5 sources)Atypical chest pain; Translations: [Other chest pain]10-10-2021 EpisodicOther and unspecified benign neoplasm (7 sources)Lipoma (clinical); Translations: [Benign lipomatous neoplasm, unspecified]EpisodicOther bone disease and musculoskeletal deformities (1 source)Osteopenia; Translations: [Other specified disorders of bone density and structure, unspecified site]32-85-8268QawjgbaqYhbjz diseases of kidney and ureters (5 sources)Kidney lesion; Translations: [Disorder of kidney and ureter, unspecified]48-39-7210PmlxfriqChdmd diseases of kidney and ureters (4 sources)Disorder of kidney and ureter, unspecified; Translations: [Unspecified disorder of kidney and ureter]90-64-5433KvemtobtGnrvn endocrine disorders (4 sources)Disorder of endocrine system; Translations: [Endocrine disorder, unspecified]12-48-9731HmsjydafMfesb gastrointestinal disorders (7 sources)Irritable bowel syndrome with [...] endocrine; and metabolic disorders (4 sources)Hypomagnesemia; Translations: [Hypomagnesemia]29-70-1425GalezfaIvheo nutritional; endocrine; and metabolic disorders (3 sources)Hypomagnesemia; Translations: [Disorders of magnesium metabolism] 01-48-3201MwljbcaHzgxt nutritional; endocrine; and metabolic disorders (7 sources)Weight loss; Translations: [Abnormal weight loss]EpisodicOther nutritional; endocrine; and metabolic disorders (13 sources)Body mass index 25-29 - overweight; Translations: [Overweight]Onset: 582905-65-9495UpgzixhmKyfuv skin disorders (7 sources)Rash and other nonspecific skin eruption; Translations: [Rash] EpisodicRegional enteritis and ulcerative colitis (7 sources)Pseudopolyposis of colon; Translations: [Inflammatory polyps of colon without complications]ChronicResidual codes; unclassified (2 sources)Postmenopausal state; Translations: [Asymptomatic menopausal state] 21-42-2332DdpdcdtbAkukievwa and history of mental health and substance abuse codes (2 sources)Ex-smoker; Translations: [Personal history of nicotine dependence] 72-61-4534GmrtxzrqFeluwzkmwle; intervertebral disc disorders; other back problems (20 sources)Spasm of back muscles; Translations: [Muscle spasm of back] 86-06-6645SwafxxsaIxegyrx and strains (6 sources)Sprain of other ligament of left ankle, initial encounter; Translations: [Sprain of left ankle]Onset: 07-04-2021 Resolved: 31-07-0119AhkwirthRggmbacvz-related disorders (20 sources)Tobacco dependence syndrome; Translations: [Nicotine dependence, unspecified, uncomplicated]Onset: 06-16-2023 Resolved: 422726-01-3567AiljvaaLchrprjlqze injury; contusion (10 sources)Contusion of lower back; Translations: [Contusion of lower back and pelvis, initial encounter]49-82-8980RladupcnNrjekziwhmfq (3 sources)LOW BACK PAIN, UNSPECIFIED; Translations: [LOW BACK PAIN, UNSPECIFIED]Onset: 06-12-2022 Past or Other Problems Problem ClassificationProblemDateDocumented DateEpisodic/ChronicAllergic reactions (20 sources)Allergy to nut; Translations: [Allergy to other foods]Onset: 651985-43-0093PhukptvnMubezj and vomiting (20 sources)Vomiting; Translations: [Vomiting, unspecified]Onset: 01-13-2025 67-78-7193VuxzdcigOltz wounds of extremities (1 source)Laceration without foreign body of left middle finger without damage to nail, initial encounterOnset: 07-12-2021 Resolved: 35-98-1390LnbtveeuJgzhk circulatory disease (4 sources)Other specified symptoms and signs involving the circulatory and respiratory systems; Translations:[OTH SPEC SX SIGNS INVLV CIRC RS]Onset: 98-19-7106NusyqhvnYkmyy gastrointestinal disorders (2 sources)Diarrhea, unspecifiedOnset: 10-16-2021 Resolved: 97-50-4712DknxlobsRmfck nutritional; endocrine; and metabolic disorders (20 sources)Obesity caused by energy imbalance; Translations: [Class 1 obesity due to excess calories without serious comorbidity with body mass index (BMI) of 33.0 to 33.9 in adult]Onset: 02-12-2024 Resolved: 912981-64-9755PtibjifEzkft screening for suspected conditions (not mental disorders or infectious disease) (20 sources)Ultrasonography of kidney abnormal; Translations: [Abnormal radiologic findings on diagnostic imaging of unspecified kidney]Onset: 08-18-2023 Resolved: 881109-84-1651HbffjofgHcowcmfyhhpu (1 source)LOW BACK PAIN, UNSPECIFIED; Translations: [LOW BACK PAIN, UNSPECIFIED] Onset: 06-07-2022 Results Test NameValueInterpretationReference RangeFacilityMM TOMOSYNTHESIS SCREENING BI on 60-87-25[place] [address] Mammography Report Signed Patient: МАРИЯ LAY MR#: [id number] : 1965 Acct:[id number] Age/Sex: 59 / F ADM Date: 05/20/25 Loc: MAMMO Attending Dr: Danya Najera Ordering Physician: Danya Najera Results: Date of Service: 05/20/25 Follow Up: Procedure(s): MM tomosynthesis screening BI Accession Number(s): [id number] cc: Margarette Estevez NP; Danya Najera Patient Name: МАРИЯ LAY MR#: [id number] : 1965 Exam Date: 05/20/2025 Ordering Doctor: SHENA NAJERA . RADIOLOGY REPORT PROCEDURE: MM TOMOSYNTHESIS SCREENING BI COMPARISON: MM TOMOSYNTHESIS SCREENING BI, 05/14/2024. MG MAMM LT DIAG FU, 05/04/2019. MG MAMM ELEANOR SCRN W CAD DIG, 03/02/2013. INDICATIONS: Screening Calculator Name NCI Breast Cancer Risk Assessment Tool 5 Year Breast Cancer Risk 1.10% Lifetime Breast Cancer Risk 5.20% Personal Breast Cancer No Personal Ovarian Cancer No Treatments None Family Cancers Aunt-maternal with breast cancer at age 39; Aunt-paternal with breast cancer at age 50; Mother with uterine cancer at age 29. LOCATION: [facility] BREAST COMPOSITION: There are scattered areas of fibroglandular density. FINDINGS: DIAGNOSTIC CATEGORY 1--NEGATIVE. RIGHT BREAST: No significant suspicious finding. LEFT BREAST: No significant suspicious finding. RECOMMENDATIONS: ROUTINE MAMMOGRAM AND CLINICAL EVALUATION IN 12 MONTHS. Dictated by: Stone Cleveland MD on 05/20/2025 at 13:32 Approved by: Stone Cleveland MD on 05/20/2025 at 13:33 Dictated By: Stone Cleveland M.D. Signed By: 05/20/25 1335 DD/ 1334 TD/TT: Molded Parts Inspector:TBHRadiology, Radiologist, MD - 05/20/2025 [place] [address] Mammography Report Signed Patient: МАРИЯ LAY MR#: [id number] : 1965 Acct:[id number] Age/Sex: 59 / F ADM Date: 05/20/25 Loc: MAMMO Attending Dr: Danya Najera Ordering Physician: Danya Najera Results: Date of Service: 05/20/25 Follow Up: Procedure(s): MM tomosynthesis screening BI Accession Number(s): [id number] cc: Margarette Estevez NP; Danya Najera Patient Name: МАРИЯ LAY MR#: [id number] : 1965 Exam Date: 05/20/2025 Ordering Doctor: SHENA NAJERA . RADIOLOGY REPORT PROCEDURE: MM TOMOSYNTHESIS SCREENING BI COMPARISON: MM TOMOSYNTHESIS SCREENING BI, 05/14/2024. MG MAMM LT DIAG FU, 05/04/2019. MG MAMM ELEANOR SCRN W CAD DIG, 03/02/2013. INDICATIONS: Screening Calculator Name NCI Breast Cancer Risk Assessment Tool 5 Year Breast Cancer Risk 1.10% Lifetime Breast Cancer Risk 5.20% Personal Breast Cancer No Personal Ovarian Cancer No Treatments None Family Cancers Aunt-maternal with breast cancer at age 39; Aunt-paternal with breast cancer at age 50; Mother with uterine cancer at age 29. LOCATION: [facility] BREAST COMPOSITION: There are scattered areas of fibroglandular density. FINDINGS: DIAGNOSTIC CATEGORY 1--NEGATIVE. RIGHT BREAST: No significant suspicious finding. LEFT BREAST: No significant suspicious finding. RECOMMENDATIONS: ROUTINE MAMMOGRAM AND CLINICAL EVALUATION IN 12 MONTHS. Dictated by: Stone Cleveland MD on 05/20/2025 at 13:32 Approved by: Stone Cleveland MD on 05/20/2025 at 13:33 Dictated By: Stone Cleveland M.D. Signed By: 05/20/251334 DD/ 33 TD/TT: Molded Parts Inspector: [facility]SmithvilleRadiology Study observation (narrative)[facility] TOMOSYNTHESIS SCREENING BIOrdered By: Radiologist Radiology on 72-50-4403[facility] Work Phone: IGP,APTIMA HPV,AGE GDLNon 06-58-8219ZTF LN ACOG TESTINGNote.[facility] HealthcareComment on above:TESTS RESULT FLAG UNITS REF RANGE LAB Clinician Provided Cytology Information Source.............Vagina No. of containers..01 ThinPrep Vial Age Algo ACOG Marisol... 30-65 01 FLAG LEGEND: L-Low Normal,H-High Normal,LL-Alert Low,HH-Alert High <-Panic Low,>-Panic High,A-Abnormal,AA-Critical Abnormal Performed at: 01 =G [address] [address] Coby Russell MD, HPV APTIMANegativeNegativeSTEWARD [facility]ALTH [facility] HealthcareComment on above:This nucleic acid amplification test detects fourteen high- risk HPV types (16,18,31,33,35,39,45,51,52,56,58,59,66,68) without differentiation. Performed at: =G - [facility] [id number] Agricultural Sciences Professor: Coby Russell MD, Phone: [phone] Performed at: - [facility] [id number] Agricultural Sciences Professor: Coby Russell MD, Phone: [phone] IGP, APTIMA HPV, RFX 16/18,45Note.NOMS [facility] Medical CenterComment on above:TESTS RESULT FLAG UNITS REF RANGE LAB DIAGNOSIS: 02 NEGATIVE FOR INTRAEPITHELIAL LESION OR MALIGNANCY. Specimen adequacy: 02 Satisfactory for evaluation. Performed by: 02 Basia Newby, Supervisory Briquetter Operator (ASC) . 02 Note: Note 02 The Pap [...] ThinPrep(R) pap test was interpreted using the Red e App(R) Genius(TM) Cervical Algorithm whole slide imaging system. HPV Genotype Reflex Note 02 Criteria not met, HPV Genotype not performed. FLAG LEGEND: L-Low Normal,H-High Normal,LL-Alert Low,HH-Alert High <-Panic Low,>-Panic High,A-Abnormal,AA-Critical Abnormal Performed at: 02 WB [facility] [address] [place] [address] Coby Russell MD, SPATULA-ALONE VAGINA CLINISYNCNOAZ HealthcareALL URINALYSISon 39-93-6432IPQCXWLWV URINENegative NEGATIVENOAZ HealthcareBLOOD URINETRACE-INEGATIVENOMS HealthcareClarity (U)CLEAR CLEARNOMS HealthcareColor (U)YELLOWYELLOWNOMS HealthcareGLUCOSE URINE UANegative NEGATIVE mg/dLNOAZ HealthcareKetones Ql (U)NegativeNEGATIVE mg/dLSTEWARD HEALTH CARE SYSTEM Healthcare Leukocyte esterase Test strip Ql (U)NegativeNEGATIVENOMS HealthcareNITRITE URINE NegativeNEGATIVENOMS HealthcarepH (U)6.0 [pH]5.0 - 9.0NOMS HealthcarePROTEIN URINENegativeNEG/TRACE mg/dLNOAZ HealthcareSPECIFIC GRAVITY URINE1.0151.005 - 1.025NOAZ HealthcareUROBILINOGEN URINE0.2 EU/dL0.2 - 1.0 EU/dLSaint Luke's [facility] Hospital–Smithville Erythrocyte distribution width Auto (RBC) [Ratio]on 34-99-9824Gxlsckttoui distribution width (RBC) [Ratio]Erythrocyte distribution width [Ratio] by Automated count11.0-15.0[facility] Medical CenterEstimated glomerular filtration rate (GFR) non- Americanon 73-98-8452VLM/1.73 sq M.predicted among non-blacks MDRD (S/P/Bld) [Vol rate/Area]Estimated glomerular filtration rate (GFR) non- AmericanLow>=60 mL/min/1.73m [address] [place] [address] CBC WITH PLATELET NO DIFFERENTIALon 52-74-8210Vhuulsxmzon distribution width (RBC) [Ratio]12.5 %11.0 - 15.0 %[facility] HealthcareHematocrit (Bld) [Volume fraction]46.7 %36.0 - 48.0 %[facility] HealthcareHemoglobin (Bld) [Mass/Vol]15.7 g/dL12.0 - 16.0 g/dLSaint Luke's North Hospital–SmithvilleInterpretation and review of laboratory resultsAbnormalCapital Region Medical Center (RBC) [Entitic mass]30.6 pg26.7 - 34.0 pgHCA Midwest DivisionHC (RBC) [Mass/Vol]33.6 g/dL29.9 - 35.2 g/dLHCA Midwest DivisionV (RBC) [Entitic vol]91 fL81.0 - 99.0 fLSaint Luke's North Hospital–SmithvillePlatelet mean volume (Bld) [Entitic vol]9.2 fLLow9.5 - 13.5 fLSaint Luke's North Hospital–SmithvilleTBH PWX509CGZPBarnes-Jewish West County HospitalTBH RBC5.13[facility]–SmithvilleTB WBC7.7[facility]–SmithvilleHematocrit Auto (Bld) [Volume fraction]on 00-56-9586Ztsxywkesp (Bld) [Volume fraction]Hematocrit [Volume Fraction] of Blood by Automated count36.0-48.0[facility] CenterHemoglobin [Mass/volume] in Bloodon 59-81-2684Vghstizjdw (Bld) [Mass/Vol] Hemoglobin [Mass/volume] in Blood12.0-16.0[facility] Laboratory - Chemistry and Chemistry - challengeon 58-85-0810Kuxmfuz [Mass/Vol] 3.8 g/dL3.4-5.0[facility] CenterCalcium [Mass/Vol]8.9 mg/dL 8.5-10.1FACMC Healthcare SystemChloride [Moles/Vol]105 mmol/L98-107 [facility] CenterCO2 [Moles/Vol]20.7 mmol/LLow21.0-32.0[facility] CenterCreatinine [Mass/Vol]1.41 mg/dLHigh0.55-1.02[facility] CenterGFR/1.73 sq M.predicted MDRD (S/P/Bld) [Vol rate/Area]46 mL/min/{1.73_m2}Low>=60 mL/min/1.73m 2FACMC Healthcare SystemGlucose [Mass/Vol]110 mg/mFLibv34-724NudaedsfaAshtabula County Medical CenterMagnesium [Mass/Vol]1.9 mg/dL1.8-2.4F[facility]MC Healthcare SystemPotassium [Moles/Vol] 3.9 mmol/L3.5-5.1FProMedica Defiance Regional Hospitalodium [Moles/Vol]141 mmol/L 136-145[facility] Medical CenterUrate [Mass/Vol]3.6 mg/dL2.6-6.0 [facility] CenterUrea nitrogen [Mass/Vol]26.0 mg/dLHigh7.0-18.0 [facility] CenterUrea nitrogen/Creatinine [Mass ratio]18.4 mg/mg [facility] CenterBilirubin Ql (U)NegativeNEGATIVEAshtabula County Medical CenterGlucose (U) [Mass/Vol]NegativeNEGATIVEAshtabula County Medical CenterKetones Ql (U)NegativeNEGATIVEAshtabula County Medical CenterpH (U)6.0 [pH]5.0-9.0[facility] Medical Centerpecific gravity (U) [Rel density]1.0151.005-1.025[facility] CenterUrobilinogen Qn (U)0.2 {Jimmy'U}/dL0.2-1.0[facility] CenterLaboratory - Specimen informationon 95-15-0872Pztaavxsrl (U)CLEARCLEARFACMC Healthcare SystemColor (U)YELLOWYELLOWAshtabula County Medical CenterLaboratory - Urinalysison 06-76-0109Jejvkyjaw esterase Test strip Ql (U)NegativeNEGATIVE [facility] CenterNitrite Ql (U)NegativeNEGATIVEAshtabula County Medical CenterProtein (U) [Mass/Vol]24.8 mg/dLHigh<=11.9[facility] CenterProtein Ql (U)NegativeNEG/TRACEAshtabula County Medical CenterLeukocytes [#/volume] corrected for nucleated erythrocytes in Blood by Automated counon 28-97-4024QCH corrected for nucl RBC Auto (Bld) [#/Vol] Leukocytes [#/volume] corrected for nucleated erythrocytes in Blood by Automated coun4.0-11.0[facility] CenterMCH Auto (RBC) [Entitic mass]on 69-41-1791TQI (RBC) [Entitic mass]MCH [Entitic mass] by Automated count26.7-34.0 [facility] CenterMCHC Auto (RBC) [Mass/Vol]on 99-88-4365BXYN (RBC) [Mass/Vol]MCHC [Mass/volume] by Automated count29.9-35.2FACMC Healthcare SystemMCV Auto (RBC) [Entitic vol]on 98-60-8333UMI (RBC) [Entitic vol] MCV [Entitic volume] by Automated count81.0-99.0[facility] CenterMicroalbumin [Mass/volume] in Urineon 55-91-3380Xsasoap DL <= 20 mg/L (U) [Mass/Vol]Microalbumin [Mass/volume] in Urine<=30.0[facility] CenterNo Panel Informationon 28-90-5506YPALODMJBHJDH Ezxeuabask61-Vnajatl Vitamin D Total54.5 ng/mLAshtabula County Medical CenterComment on above:<20 ng/mL Vit D fueuahuqv39-<30 ng/mL Vit D jbuvjgxtrpcj70-299 ng/mL Vit D sufficient>100 ng/mL Potential ToxicityParathyroid Hormone (Intact)25 pg/mL15-65 [facility] CenterComment on above:Performed at: [facility] [address] [id number] Director: Davion Noonan PhD, Phone: [phone] Level3.4 mg/dL2.6-4.7FACMC Healthcare SystemUrine Occult BloodTRACE-INEGATIVEAshtabula County Medical CenterUrine Random Rsoyczsvwa891.31 mg/dL20.00-300.00[facility] Platelet mean volume Auto (Bld) [Entitic vol]on 96-09-8900Sxvknmxw mean volume (Bld) [Entitic vol]Platelet mean volume [Entitic volume] in Blood by Automated countLow9.5-13.5FACMC Healthcare SystemPlatelets Auto (Bld) [#/Vol]on 48-48-0367Xhlezrqkj (Bld) [#/Vol]Platelets [#/volume] in Blood by Automated pugxa227-449SrmowpeyxAshtabula County Medical CenterRBC Auto (Bld) [#/Vol]on 12-14-2024 RBC (Bld) [#/Vol]Erythrocytes [#/volume] in Blood by Automated count4.20-5.40 [facility] Medical Centererum or plasma anion gap determinationon 68-84-2954Hohsn gap [Moles/Vol]Serum or plasma anion gap determinationAshtabula County Medical CenterUrine microalbumin/creatinine mass ratioon 12-14-2024 Albumin/Creatinine DL <= 20 mg/L (U) [Mass ratio]Urine microalbumin/creatinine mass ratio0.0-29.9[facility] CenterComment on above:NO MICROALBUMINURIA 0-29 MG/GCLINICAL MICROALBUMINURIA 30-300 MG/GMACROALBUMINURIA >300 MG/GUrine protein/creatinine ratioon 23-19-9233Hnebzws/Creatinine (U) [Ratio]Urine protein/creatinine ratioAshtabula County Medical Center Erythrocyte distribution width Auto (RBC) [Ratio]on 40-68-7163Iyesjurhgev distribution width (RBC) [Ratio]Erythrocyte distribution width [Ratio] by Automated count11.0-15.0[facility] CenterEstimated glomerular filtration rate (GFR) non- Americanon 02-76-6365EZY/1.73 sq M.predicted among non-blacks MDRD (S/P/Bld) [Vol rate/Area]Estimated glomerular filtration rate (GFR) non- AmericanLow>=60 mL/min/1.73m 2FACMC Healthcare SystemHematocrit Auto (Bld) [Volume fraction]on 96-20-4778Inktbjfgqb (Bld) [Volume fraction]Hematocrit [Volume Fraction] of Blood by Automated count 36.0-48.0[facility] CenterHemoglobin [Mass/volume] in Bloodon 29-53-0096Txixerylue (Bld) [Mass/Vol]Hemoglobin [Mass/volume] in Blood12.0-16.0 [facility] CenterLaboratory - Chemistry and Chemistry - challengeon 59-04-2687Rrjiqbvkh Ql (U)NegativeNEGATIVEAshtabula County Medical CenterGlucose (U) [Mass/Vol]NegativeNEGATIVEAshtabula County Medical Center Ketones Ql (U)NegativeNEGATIVEAshtabula County Medical CenterpH (U)6.0 [pH] 5.0-9.0[facility] Medical Centerpecific gravity (U) [Rel density]1.015 1.005-1.025[facility] CenterUrobilinogen Qn (U)0.2 {Jimmy'U}/dL0.2-1.0[facility] CenterAlbumin [Mass/Vol]3.6 g/dL 3.4-5.0[facility] CenterCalcium [Mass/Vol]8.8 mg/dL8.5-10.1 [facility] CenterChloride [Moles/Vol]105 mmol/W63-461ZjihxqajqAshtabula County Medical CenterCO2 [Moles/Vol]26.0 mmol/L21.0-32.0[facility] CenterCreatinine [Mass/Vol]1.69 mg/dLHigh0.55-1.02[facility] CenterGFR/1.73 sq M.predicted MDRD (S/P/Bld) [Vol rate/Area]37 mL/min/{1.73_m2}Low>=60 mL/min/1.73m 2F[facility]MC Healthcare SystemGlucose [Mass/Vol]105 mg/cI42-088VbmefnkgbAshtabula County Medical CenterMagnesium [Mass/Vol] 1.8 mg/dL1.8-2.4[facility] SystemPotassium [Moles/Vol]3.8 mmol/L 3.5-5.1FProMedica Defiance Regional Hospitalodium [Moles/Vol]141 mmol/Y071-672 [facility] CenterUrate [Mass/Vol]4.4 mg/dL2.6-6.0[facility] CenterUrea nitrogen [Mass/Vol]27.0 mg/dLHigh7.0-18.0[facility] CenterUrea nitrogen/Creatinine [Mass ratio]16.0 mg/mgAshtabula County Medical CenterLaboratory - Specimen informationon 92-08-2573Ovxfblmnjo (U)CLEARCLEARFACMC Healthcare SystemColor (U)YELLOWYELLOWAshtabula County Medical CenterLaboratory - Urinalysison 19-42-6259Diitfxpya esterase Test strip Ql (U)NegativeNEGATIVEAshtabula County Medical CenterNitrite Ql (U) NegativeNEGATIVEAshtabula County Medical CenterProtein (U) [Mass/Vol]20.7 mg/dLHigh<=11.9[facility] CenterProtein Ql (U)NegativeNEG/TRACE [facility] CenterLeukocytes [#/volume] corrected for nucleated erythrocytes in Blood by Automated counon 40-16-0790ZMT corrected for nucl RBC Auto (Bld) [#/Vol]Leukocytes [#/volume] corrected for nucleated erythrocytes in Blood by Automated coun4.0-11.0[facility] HospitalH Auto (RBC) [Entitic mass]on 82-72-1098UST (RBC) [Entitic mass]MCH [Entitic mass] by Automated count26.7-34.0[facility] HospitalHC Auto (RBC) [Mass/Vol]on 41-97-5942KSUS (RBC) [Mass/Vol]MCHC [Mass/volume] by Automated count29.9-35.2FGrand Lake Joint Township District Memorial HospitalV Auto (RBC) [Entitic vol]on 18-35-5467OTC (RBC) [Entitic vol]MCV [Entitic volume] by Automated count 81.0-99.0[facility] CenterMicroalbumin [Mass/volume] in Urineon 86-73-4676Sapoeid DL <= 20 mg/L (U) [Mass/Vol]Microalbumin [Mass/volume] in Urine<=30.0[facility] CenterNo Panel Informationon 08-07-2024 Urine Occult BloodTRACE-LNEGATIVEAshtabula County Medical CenterUrine Random Srqgxozfvi020.22 mg/dL20.00-300.00[facility]25-Hydroxy Vitamin D Total45.1 ng/mLAshtabula County Medical CenterComment on above:<20 ng/mL Vit D siefkgrnc31-<30 ng/mL Vit D abaaqdhggeky06-838 ng/mL Vit D sufficient>100 ng/mL Potential ToxicityParathyroid Hormone (Intact)30 pg/mL15-65 [facility] CenterComment on above:Performed at: - [address] [id number] Director: Davion Noonan PhD, Phone: [phone] Level3.7 mg/dL2.6-4.7F[facility] Healthcare SystemPlatelet mean volume Auto (Bld) [Entitic vol]on 56-25-3167Sicfbani mean volume (Bld) [Entitic vol]Platelet mean volume [Entitic volume] in Blood by Automated countLow9.5-13.5FACMC Healthcare SystemPlatelets Auto (Bld) [#/Vol]on 21-58-1417Fktvikwzk (Bld) [#/Vol]Platelets [#/volume] in Blood by Automated -021MgeziiumeAshtabula County Medical CenterRBC Auto (Bld) [#/Vol]on 34-70-8789USQ (Bld) [#/Vol]Erythrocytes [#/volume] in Blood by Automated count 4.20-5.40[facility] Centererum or plasma anion gap determinationon 52-84-3985Gicpm gap [Moles/Vol]Serum or plasma anion gap determinationAshtabula County Medical CenterUrine microalbumin/creatinine mass ratioon 43-04-4472Lmvlxnv/Creatinine DL <= 20 mg/L (U) [Mass ratio]Urine microalbumin/creatinine mass ratio0.0-29.9[facility] Comment on above:NO MICROALBUMINURIA 0-29 MG/GCLINICAL MICROALBUMINURIA 30-300 MG/GMACROALBUMINURIA >300 MG/GUrine protein/creatinine ratioon 08-07-2024 Protein/Creatinine (U) [Ratio]Urine protein/creatinine ratioAshtabula County Medical CenterXR DEXA AXIAL SKELETONon 20-08-3541Got[address] [address] XRay Report Signed Patient: МАРИЯ LAY MR#: [id number] : 1965 Acct:[id number] Age/Sex: 58 / F ADM Date: 05/14/24 Loc: MAMMO Attending Dr: Danya Najera Ordering Physician: Danya Najera Date of Service: 05/14/24 Procedure(s): XR DEXA axial skeleton Accession Number(s): [id number] cc: Danya Najera; Physician,Non-Staff M.D. [address] [address] Patient Name: МАРИЯ LAY MRN: [id number] date: 1965 Sex: F Assigned Patient Location: MAMMO Current Patient Location: Accession/Order Number: [id number] Exam Date: 05/14/2024 11:10 Report Date: 05/15/2024 [...] prevention and treatment of osteoporosis. Osteoporos Int. 2021;33(10):4043-7381. doi: 10.1007/o18875-645-25976-o. Epub 2021Nov 08. Erratum in: Osteoporos Int. 2021Feb 07;: PMID: 57189654; PMCID: [id number]. Electronically authenticated by: JAY MARTINEZ Date: 05/15/2024 06:10 Dictated By: Jay Martinez M.D. Signed By: 05/15/24611 DD/ 9 TD/TT: Molded Parts Inspector:PRAKASHHRadiologrobi, Radiologist, - 05/15/2024 [place] [address] XRay Report Signed Patient: МАРИЯ LAY MR#: [id number] : 1965 Acct:[id number] Age/Sex: 58 / F ADM Date: 05/14/24 [facility]: Danya Najera Ordering Physician: Danya Najera Date of Service: 05/14/24 Procedure(s): XR DEXA axial skeleton Accession Number(s): [id number] cc: Danya Najera; Physician,Non-Staff M.Brady [place] [address] Patient Name: МАРИЯ LAY MRN: [id number] date: 1965 Sex: F Assigned Patient Location: [facility] Current Patient Location: Accession/Order Number: [id number] Exam Date: 05/14/2024 11:10 Report Date: 05/15/2024 [...] prevention and treatment of osteoporosis. Osteoporos Int. 2021;33(10):3255-2613. doi: 10.1007/v98011-146-36466-r. Epub 2021Nov 08. Erratum in: Osteoporos Int. 2021Feb 07;: PMID: 32612941; PMCID: [id number]. Electronically authenticated by: JAY MARTINEZ Date: 05/15/2024 06:10 Dictated By: Jay Martinez M.D. Signed By: 05/15/24611 DD/ 9 TD/TT: Molded Parts Inspector: [facility] HealthcareRadiology Study observation (narrative)ZENA HealthcareXR DEXA AXIAL SKELETONOrdered By: Radiologist Radiology on 91-85-3029[facility] Work Phone: mm TOMOSYNTHESIS SCREENING BIon 13-46-3683[address] [place] [address] Mammography Report Signed Patient: МАРИЯ LAY MR#: [id number] : 1965 Acct:[id number] Age/Sex: 58 / F ADM Date: 05/14/24 Loc: MAMMO Attending Dr: Danya Najera Ordering Physician: Danya Najera Results: Date of Service: 05/14/24 Follow Up: Procedure(s): MM tomosynthesis screening BI Accession Number(s): [id number] cc: Danya Najera; Physician,Non-Staff M.DEliceo Patient Name: МАРИЯ LAY MR#: [id number] : 1965 Exam Date: 05/14/2024 Ordering Doctor: [...] at age 27. LOCATION: [facility] BREAST COMPOSITION: The breasts are heterogeneously [...] Signed By: 05/14/24 1333 DD/ 1333 TD/TT: Molded Parts Inspector:TBHRadiology, RadiologistMD - 05/14/2024 [place] [address] Mammography Report Signed Patient: МАРИЯ LAY MR#: [id number] : 1965 Acct:[id number] Age/Sex: 58 / F ADM Date: 05/14/24 Loc: MAMMO Attending Dr: Danya Najera Ordering Physician: Danya Najera Results: Date of Service: 05/14/24 Follow Up: Procedure(s): MM tomosynthesis screening BI Accession Number(s): [id number] cc: Danya Najera; Physician,Non-Staff M.DEliceo Patient Name: МАРИЯ LAY MR#: [id number] : 1965 Exam Date: 05/14/2024 Ordering Doctor: [...] at age 27. LOCATION: [facility] BREAST COMPOSITION: The breasts are heterogeneously [...] Tao M.D. Signed By: 05/14/24 1333 DD/ 32 TD/TT: Molded Parts Inspector: [facility] HealthcareRadiology Study observation (narrative)[facility] TOMOSYNTHESIS SCREENING BIOrdered By: Radiologist Radiology on 27-69-8668KR[facility] Work Phone: IGP,APTIMA HPV,AGE GDLNon 29-77-9833FEL GDLN ACOG TESTINGNote.[facility] HealthcareComment on above:TESTS RESULT FLAG UNITS REF RANGE LAB Clinician Provided Cytology Information Source.............Vagina No. of containers..01 ThinPrep Vial Age Shellyo YINA Marisol... FLAG LEGEND: L-Low Normal,H-High Normal,LL-Alert Low,HH-Alert High <-Panic Low,>-Panic High,A-Abnormal,AA-Critical Abnormal Performed at: 01 =[address] [address] Coby Russell MD, HPV APTIMANegativeNegativeSTEWARD [facility] HealthcareComment on above:This nucleic acid amplification test detects fourteen high- risk HPV types (16,18,31,33,35,39,45,51,52,56,58,59,66,68) without differentiation. Performed at: =[address] [id number] Agricultural Sciences Professor: Coby Russell MD, Phone: [phone] Performed at: [address] [id number] Agricultural Sciences Professor: Coby Russell MD, Phone: [phone] IGP, APTIMA HPV, RFX 16/18,45Note.NOMS HealthcareComment on above:TESTS RESULT FLAG UNITS REF RANGE LAB DIAGNOSIS: 02 NEGATIVE FOR INTRAEPITHELIAL LESION OR MALIGNANCY. Specimen adequacy: 02 Satisfactory for evaluation. Performed by: 02 Nazia Crump, Huc ([facility]) . 02 Note: Note 02 The Pap [...] Low,>-Panic High,A-Abnormal,AA-Critical Abnormal Performed at: 02 WB [facility] [address] [place] [address] Coby Russell MD, SPATULA-ALONE VAGINA CLINISYNCSaint Luke's North Hospital–SmithvilleNo Panel Informationon 29-61-5438HNPN Healthcare Laboratory - Chemistry and Chemistry - challengeon 73-56-2839Gxjbnoo [Mass/Vol] 3.6 g/dL3.4-5.0[facility] CenterMagnesium [Mass/Vol]1.7 mg/dLLow 1.8-2.4FACMC Healthcare SystemUrate [Mass/Vol]4.6 mg/dL2.6-6.0 [facility] CenterBilirubin Ql (U)NegativeNEGATIVEAshtabula County Medical CenterGlucose (U) [Mass/Vol]NegativeNEGATIVEAshtabula County Medical CenterKetones Ql (U)NegativeNEGATIVEAshtabula County Medical CenterpH (U)6.0 [pH]5.0-9.0[facility] Centerpecific gravity (U) [Rel density]1.0201.005-1.025[facility] CenterUrobilinogen Qn (U)0.2 {Jimmy'U}/dL0.2-1.0[facility] CenterLaboratory - Specimen informationon 18-06-5323Imeykdmwvp (U)CLEARCLEARFACMC Healthcare SystemColor (U)LT. YELLOWYELLOWAshtabula County Medical CenterLaboratory - Urinalysison 66-23-1102Waywetmmx esterase Test strip Ql (U)NegativeNEGATIVE [facility] CenterNitrite Ql (U)NegativeNEGATIVEAshtabula County Medical CenterProtein (U) [Mass/Vol]13.0 mg/dLHigh<=11.9[facility] CenterProtein Ql (U)NegativeNEG/TRACEAshtabula County Medical CenterMicroalbumin [Mass/volume] in Urineon 32-41-6654Edjoieh DL <= 20 mg/L (U) [Mass/Vol]mg/dL<=30.0[facility] CenterNo Panel Informationon 23-88-919252515801-Dhetcwc Vitamin D Total54.3 ng/mLAshtabula County Medical Center Comment on above:<20 ng/mL Vit D ctmjuiciz88-<30 ng/mL Vit D kvwhomhaascm50-903 ng/mL Vit D sufficient>100 ng/mL Potential ToxicityParathyroid Hormone (Intact) 28 pg/bO33-15ObwfsyyumAshtabula County Medical CenterComment on above:Performed at: [address] [id number] Director: Davion Noonan PhD, Phone: [phone] Level4.0 mg/dL2.6-4.7FACMC Healthcare SystemUrine Occult BloodTRACE-INEGATIVEAshtabula County Medical CenterUrine Random Abuambiehz525.15 mg/dL20.00-300.00[facility] CenterProtein/Creatinine (U) [Ratio]on 43-00-4260Scbdt Protein/Creatinine Ratio0.09[facility] CenterMR Abdomen WO and W contrast Mariana 62-73-5548[place] [address] Magnetic Resonance Report Signed Patient: МАРИЯ LAY MR#: [id number] : 1965 Acct:[id number] Age/Sex: 57 / F ADM Date: 08/22/23 Loc: MRI Attending Dr: Shaikh Cecilio Branch Ordering Physician: Shaikh Jose Carlos Hernandes Date of Service: 08/22/23 Procedure(s): MR abdomen wo/w con Accession Number(s): [id number] cc: Shaikh Jose Carlos Hernandes [place] [address] Patient Name: МАРИЯ LAY MRN: [id number] date: 1965 Sex: F Assigned Patient Location: MRI Current Patient Location: Accession/Order Number: [id number] Exam Date: 08/22/2023 13:45 Report Date: 08/25/2023 [...] M.D. Signed By: 08/25/23817 DD/ 4 TD/TT: Molded Parts Inspector:TBHRadiology, Radiologist, MD - 08/25/2023 [place] [address] Magnetic Resonance Report Signed Patient: МАРИЯ LAY MR#: [id number] : 1965 Acct:[id number] Age/Sex: 57 / F ADM Date: 08/22/23 Loc: MRI Attending Dr: Shaikh Cecilio Branch Ordering Physician: Shaikh Jose Carlos Hernandes Date of Service: 08/22/23 Procedure(s): MR abdomen wo/w con Accession Number(s): [id number] cc: Shaikh Jose Carlos Hernandes [place] [address] Patient Name: МАРИЯ LAY MRN: [id number] date: 1965 Sex: F Assigned Patient Location: MRI Current Patient Location: Accession/Order Number: [id number] Exam Date: 08/22/2023 13:45 Report Date: 08/25/2023 [...] M.D. Signed By: 08/25/23817 DD/ 4 TD/TT: Molded Parts Inspector: [facility]villeRadiology Study observation (narrative)[facility] Abdomen WO and W contrast IVOrdered By: Radiologist Radiology on 30-66-2700LVJCSaint Luke's North Hospital–[facility]ville Work Phone: all BUNon 25-47-9344Yrir nitrogen [Mass/Vol]21.0 mg/dL High7.0 - 18.0 mg/dLSaint Luke's North Hospital–SmithvilleNo Panel Informationon 08-22-2023 Interpretation and review of laboratory resultsAbnormalSaint Luke's North Hospital–SmithvilleCLINISYNC [facility] CREATININEon 17-74-4746Olzvvfdjnj [Mass/Vol]1.48 mg/dLHigh 0.55 - 1.02 mg/dLSaint Luke's North Hospital–SmithvilleGFR/1.73 sq M.predicted CKD-EPI (S/P/Bld) [Vol rate/Area]07Qww20 - PINFUniversity Health Truman Medical Center EGFR-NON AF PPNOHNTE52Ayo40 - PINF [facility] RENAL BIon 85-09-5013Z[address] [address] Ultrasound Report Signed Patient: МАРИЯ LAY MR#: [id number] : 1965 Acct:[id number] Age/Sex: 57 / F ADM Date: 06/27/23 Loc: US Attending Dr: Shaikh Ceciloi Branch Ordering Physician: Shaikh Jose Carlos Hernandes Date of Service: 06/27/23 Procedure(s): US renal BI Accession Number(s): [id number] cc: Shaikh Jose Carlos Hernandes [place] [address] Patient Name: МАРИЯ LAY MRN: [id number] date: 1965 Sex: F Assigned Patient Location: US Current Patient Location: US Accession/Order Number: [id number] Exam Date: 06/27/2023 08:58 Report Date: 06/27/2023 [...] Signed By: 06/27/23 1001 DD/ 0958 TD/TT: Molded Parts Inspector:PRAKASHHRadiology, Radiologist, - 06/27/2023 [place] [address] Ultrasound Report Signed Patient: МАРИЯ LAY MR#: [id number] : 1965 Acct:[id number] Age/Sex: 57 / F ADM Date: 06/27/23 Loc: US Attending Dr: Shaikh Cecilio Branch Ordering Physician: Shaikh Jose Carlos Hernandes Date of Service: 06/27/23 Procedure(s): US renal BI Accession Number(s): [id number] cc: Shaikh Jose Carlos Hernandes [place] [address] Patient Name: МАРИЯ LAY MRN: [id number] date: 1965 Sex: F Assigned Patient Location: US Current Patient Location: US Accession/Order Number: [id number] Exam Date: 06/27/2023 08:58 Report Date: 06/27/2023 [...] Signed By: 06/27/23 1001 DD/ 0958 TD/TT: Molded Parts Inspector: [facility] HOSPITALDiana HealthcareRadiology Study observation (narrative)[facility] HealthcareUS RENAL BI Ordered By: Radiologist Radiology on 89-80-9551VVCR [employer] Work Phone: XR LSPINE MIN 4 VIEWSon 08-73-3267KV LSPINE MIN 4 VIEWSEXAMINATION: XR LSPINE MIN [...] Electronically authenticated by: JAY MARTINEZ Date: 2022-06-07 12:11[facility] HospitalB-Type Natriuretic Peptideon 13-63-4497Hxuczvdfvwf peptide B (Bld) [Mass/Vol]64.0 pg/mLNormal5-100As[facility] Medical CenterComment on above:Result Comment: PERFORMED BY: [place] [address] PATHOLOGIST CENTRIFUGAL SCREEN TENDER SHIMA SY M.D.Performed By: #### CK, CKMB, CBC, BMP, BNP #### [address] [address] USABasic Metabolic Panelon 52-99-5768Plvsaon [Mass/Vol]9.3 mg/dLNormal8.2-10.2FACMC Healthcare SystemComment on above:Performed By: #### CK, CKMB, CBC, BMP, BNP #### [facility] [address] [place] [address] USAChloride [Moles/Vol]104 mmol/XFcpllv49-918RsiudlslaAshtabula County Medical CenterComment on above:Performed By: #### CK, CKMB, CBC, BMP, BNP #### [facility] [address] [place] [address] USACO2 [Moles/Vol]19.9 mmol/LLow22.0-30.0As[facility] County Medical CenterComment on above:Performed By: #### CK, CKMB, CBC, BMP, BNP #### [place] [address] USACreatinine [Mass/Vol]1.27 mg/dLHigh0.44-1.03[facility] County Medical CenterComment on above:Performed By: #### CK, CKMB, CBC, BMP, BNP #### [place] [address] USACreatinine Clr Calc Mcrxspeb27.75NoCleveland Clinic Akron General Lodi HospitalComment on above:Result Comment: PERFORMED BY: [place] [address] PATHOLOGIST CENTRIFUGAL SCREEN TENDER SHIMA SY M.D.Performed By: #### CK, CKMB, CBC, BMP, BNP #### [place] [address] USAEstimated GFR ( Nypfsaw75MuxstuBggiqwcxvGenesis HospitalComment on above:Result Comment: GFR estimated reference range: According to KDOQI guidelines, <60 ml/min/1.73m2 is sufficient to diagnose a patient with chronic kidney disease.Performed By: #### CK, CKMB, CBC, BMP, BNP #### [place] [address] USAEstimated GFR (Non- Li45KurqsrDuubkzyroGenesis HospitalComment on above:Performed By: #### CK, CKMB, CBC, BMP, BNP #### [facility] [address] [place] [address] USAGlucose [Mass/Vol]96 mg/zAUhyltc17-365YanvsucfbAshtabula County Medical CenterComment on above:Result Comment: Random Glucose Reference Range is dependent on time and content of last meal. Glucose of more than 200 mg/dL in a nonstressed, ambulatory subject supports the diagnosis of Diabetes Mellitus. ADA recommended reference rangePerformed By: #### CK, CKMB, CBC, BMP, BNP #### [facility] [address] [place] [address] USAPotassium [Moles/Vol]3.7 mmol/LNormal3.5-5.1FACMC Healthcare SystemComment on above:Performed By: #### CK, CKMB, CBC, BMP, BNP #### [facility] [address] [place] [address] USASodium [Moles/Vol]135 mmol/KGqz909-637QohrmkmwyAshtabula County Medical CenterComment on above:Performed By: #### CK, CKMB, CBC, BMP, BNP #### [facility] [address] [place] [address] USAUrea nitrogen [Mass/Vol]17 mg/dLNormal9-23As[facility] County Medical CenterComment on above:Performed By: #### CK, CKMB, CBC, BMP, BNP #### [place] [address] USACOVID-19 Antigenon 62-72-9573SVSHY-19 AntigenHealthcare Worker?: N Bella Reference Bella Reference [...] its performance Bella Disclaimer characteristic determined by [employer] and Bella Disclaimer validated at [facility]. This Bella Disclaimer test has [...] Emergency Use Authorization for Coronavirus Bella Disclaimer during the Public Health Emergency) Bella Disclaimer [...] is terminated or revoked sooner. PERFORMED BY: [place] [address] PATHOLOGIST CENTRIFUGAL SCREEN TENDER SHIMA SY M.D.Genesis HospitalComment on above: Performed By: #### FLU, COVID-19 BELLA, SOFIANEG #### [place] [address] USAComplete Blood Count Auto Diffon 61-12-7068Pwsftofzy (Bld) [#/Vol]0.1 10*3/uLNormal0.0-0.2FACMC Healthcare SystemComment on above:Result Comment: PERFORMED BY: [place] [address] PATHOLOGIST CENTRIFUGAL SCREEN TENDER SHIMA SY M.D.Performed By: #### CK, CKMB, CBC, BMP, BNP #### [place] [address] USABasophils/100 WBC (Bld)1.4 %Normal.[facility] Medical CenterComment on above:Performed By: #### CK, CKMB, CBC, BMP, BNP #### [place] [address] USAEosinophils (Bld) [#/Vol]0.2 10*3/uLNormal0.0-0.45 [facility] Medical CenterComment on above:Performed By: #### CK, CKMB, CBC, BMP, BNP #### [place] [address] USAEosinophils/100 WBC (Bld)2.3 %Normal.[facility] Medical CenterComment on above:Performed By: #### CK, CKMB, CBC, BMP, BNP #### [address] [place] [address] USAErythrocyte distribution width (RBC) [Ratio]13.2 %Normal 11.9-15.3FACMC Healthcare SystemComment on above:Performed By: #### CK, CKMB, CBC, BMP, BNP #### [place] [address] USAHematocrit (Bld) [Volume fraction]41.5 %Bjpnph32.0-46.4 [facility] Medical CenterComment on above:Performed By: #### CK, CKMB, CBC, BMP, BNP #### [place] [address] USAHemoglobin (Bld) [Mass/Vol]13.8 g/uBAtrgmm41.8-15.4 [facility] Medical CenterComment on above:Performed By: #### CK, CKMB, CBC, BMP, BNP #### [place] [address] USALymphocytes (Bld) [#/Vol]3.6 10*3/uLNormal1.00-4.8 [facility] Medical CenterComment on above:Performed By: #### CK, CKMB, CBC, BMP, BNP #### [place] [address] USALymphocytes/100 WBC (Bld)39.0 %Normal.[facility] Medical CenterComment on above:Performed By: #### CK, CKMB, CBC, BMP, BNP #### [place] [address] USAMCH (RBC) [Entitic mass]30.7 fsTcujho91.7-34.3FACMC Healthcare SystemComment on above:Performed By: #### CK, CKMB, CBC, BMP, BNP #### [place] [address] USAMCV (RBC) [Entitic vol]91.9 nVOgqgcj43-082RrkypadjtAshtabula County Medical CenterComment on above:Performed By: #### CK, CKMB, CBC, BMP, BNP #### [address] [place] [address] USAMean Corpuscular HGB Conc33.4 g/vFMftyru08.0-35.0As[facility] County Medical CenterComment on above:Performed By: #### CK, CKMB, CBC, BMP, BNP #### [facility] [address] [place] [address] USAMonocytes (Bld) [#/Vol]0.8 10*3/uLNormal0.0-0.8[facility] County Medical CenterComment on above:Performed By: #### CK, CKMB, CBC, BMP, BNP #### [facility] [address] [place] [address] USAMonocytes/100 WBC (Bld)9.0 %Normal.[facility] County Medical CenterComment on above:Performed By: #### CK, CKMB, CBC, BMP, BNP #### [place] [address] USANeutrophils (Bld) [#/Vol]4.4 10*3/uLNormal1.8-7.7FACMC Healthcare SystemComment on above:Performed By: #### CK, CKMB, CBC, BMP, BNP #### [place] [address] USANeutrophils/100 WBC (Bld)48.3 %Normal.[facility] Medical CenterComment on above:Performed By: #### CK, CKMB, CBC, BMP, BNP #### [place] [address] USANucleated RBC/100 WBC (Bld) [Ratio]0.1 %Normal0-0.5 [facility] Medical CenterComment on above:Performed By: #### CK, CKMB, CBC, BMP, BNP #### [facility] [address] [place] [address] USAPlatelet mean volume (Bld) [Entitic vol]7.0 fLNormal 6.3-10.7FACMC Healthcare SystemComment on above:Performed By: #### CK, CKMB, CBC, BMP, BNP #### [facility] [address] [place] [address] USAPlatelets (Bld) [#/Vol]237 10*3/oERnjhcr961-533DpbdfdglcAshtabula County Medical CenterComment on above:Performed By: #### CK, CKMB, CBC, BMP, BNP #### [place] [address] USARBC (Bld) [#/Vol]4.51 10*6/uLNormal3.60-5.00[facility] Medical CenterComment on above:Performed By: #### CK, CKMB, CBC, BMP, BNP #### [place] [address] USAWBC (Bld) [#/Vol]9.1 10*3/uLNormal4.5-11.0[facility] County Medical CenterComment on above:Performed By: #### CK, CKMB, CBC, BMP, BNP #### [place] [address] USACreatine Kinaseon 48-23-2093WP [Catalytic activity/Vol]69 U/DRfvfdx23-961AghcbcnqkAshtabula County Medical CenterComment on above:Performed By: #### CK, CKMB, CBC, BMP, BNP #### [place] [address] USACreatinine Kinase MBon 42-43-1206ZD.MB [Mass/Vol]3.1 ng/mL Normal0.6-6.3FACMC Healthcare SystemComment on above:Performed By: #### FLU, COVID-19 BELLA, SOFIANEG #### [place] [address] USACKMB Relative Index4.4 %High0.00-2.50[facility] County Medical CenterComment on above:Result Comment: PERFORMED BY: [place] [address] PATHOLOGIST CENTRIFUGAL SCREEN TENDER SHIMA SY M.D.Performed By: #### FLU, COVID-19 BELLA, SOFIANEG #### [address] [place] [address] USAECG 12 lead ECGon 81-14-4268XRZ 12 lead ECGHENRY COUNTY H[facility] [address] [place] [address] [place] [address] Electrocardiograph Report Signed Patient: Мария Lay MR#: [id number] : 1965 Acct:[id number] Age/Sex: 55 / F ADM Date: 10/10/21 Loc: ER Room: Type: [facility] ER Attending Dr: Ordering Provider: Kathryn Parks [...] leads Confirmed by KATHRYN PARKS DO ([id number]), subeditor Trent Garay ([id number]) on 10/11/2021 11:15:22 AM Referred By: Electronically Signed By:KATHRYN PARKS DO Transcribed By: MUS Signed By Kathryn Parks DO 1115Genesis HospitalInfluenza A and B Antigenon 59-53-2906Hbjsxislj A and B AntigenNote 6 be below [...] samples is recommended. Note 7 PERFORMED BY: [place] [id number] PATHOLOGIST CENTRIFUGAL SCREEN TENDER SHIMA SY M.D.NormalAshtabula County Medical CenterComment on above: Performed By: #### FLU, COVID-19 BELLA, SOFIANEG #### [facility] [address] [place] [address] USASofia Ag Negativeon 66-23-9339Cjakp Ag NegativeNegative NormalNegativeAshtabula County Medical CenterComment on above:Result Comment: This is a duplicate Bella SARS Antigen (BLAYNE) result to be used for statistical tracking purpose only. PERFORMED BY: [place] [address] PATHOLOGIST CENTRIFUGAL SCREEN TENDER SHIMA SY M.D.Performed By: #### FLU, COVID-19 BELLA, SOFIANEG #### [place] [address] USATroponin I High Sensitivityon 26-61-7941Qfvtrfwh I High Thjrgtxssrj56 pg/mLNormal0-15[facility] County Medical CenterComment on above: Result Comment: PERFORMED BY: [place] [address] PATHOLOGIST CENTRIFUGAL SCREEN TENDER SHIMA SY M.D.Performed By: #### HS TROP #### [place] [address] USAXR chest 1V portableon 52-82-8236XX chest 1V portable [facility] [place] [address] XRay Report Signed Patient: Мария Lay MR#: [id number] : 1965 Acct:[id number] Age/Sex: 55 / F ADM Date: 10/10/21 Loc: ER Room: Type: [facility] ER Attending Dr: Ordering Provider: Kathryn [...] David Walker M.D.10/10/2021 7:52 PM Dictation Location: [place] [address] Transcribed By: ROMEL 10/10/211951 Dictated By: David Walker II, MD 10/10/211949 Signed By: 10/10/211951Genesis HospitalXR ANKLE LEFT 3+ VIEWS (STANDARD)on 91-13-0615AM ANKLE LEFT 3+ VIEWS (STANDARD)EXAMINATION: XR ANKLE [...] bodies. IMPRESSION: No obvious fractures or dislocations. [facility] Workstation ID: [id number] Dictated by: LOULOU TREVINO on FriJul 29, 2021 8:55:54 PM EST Transcribed by: DARYA SCHILLING on FriJul 29, 2021 8:57:24 PM EST Finalized by: LOULOU TREVINO on FriJul 29, 2021 10:03:[address] [facility] Medical CenterComment on above:Order Comment: Injury/Trauma or Illness?:Injury/Trauma How long have you had these symptoms (acute/chronic)?:Acute Reason for exam?:pain History of cancer?:u Surgeries, chemotherapy, or radiation?:u Type of Exam?:Initial Mechanism of injury?:fall Vital Signs Date TimeVital SignValuePerforming BinpakdxiVsdcdtfk16-81-7846 15:33-0400Body mass index (BMI) [Ratio]27.6 kg/m2Danya Najera PA Work Phone: [facility]SmithvilleYktelhwatx91-76-7049 15:33-0400Body .56 kgDanya Najera PA Work Phone: [facility]–SmithvilleLnmfsrfxju33-88-4664 15:33-0400Diastolic blood kapedcnl96 mm[Hg]Danya Laresey PA Work Phone: [facility]–SmithvilleWxytydjoge50-61-3593 15:33-0400Systolic blood idbvuwph179 mm[Hg]Danya Najera PA Work Phone: [facility]–SmithvilleLqanoqqyhz53-89-7701 17:14-0400Body tysghw331.91 Bartisa Aichholz EQUIPMENT MAINT TECH-C Work Phone: [phone])[address]10-13-2025 17:14-0400 Body mass index (BMI) [Ratio]27.3 kg/m2Lisa Aichholz EQUIPMENT MAINT TECH-C Work Phone: [phone]10-13-2025 17:14-0400 Body lsmjfhrawry29.9 [degF]Margarette Aichholz EQUIPMENT MAINT TECH-C Work Phone: [phone]10-13-2025 17:14-0400 Body rvbpos14.15 kgLisa Aichholz EQUIPMENT MAINT TECH-C Work Phone: [phone])800-[address] [place], [place] 500[address]10-13-2025 17:14-0400 Diastolic blood vlegpxme78 mm[Hg]Margarette Aichholz EQUIPMENT MAINT TECH-C Work Phone: [phone] [place], [place] 500[address]10-13-2025 17:14-0400 Heart rate80 /minLisa Aichholz EQUIPMENT MAINT TECH-C Work Phone: 1(565)869-[address] [place], [place] 501[address]10-13-2025 17:14-0400 Respiratory rate20 /minLisa Aichholz EQUIPMENT MAINT TECH-C Work Phone: [phone])475-[address] [place], [place] 501[address]10-13-2025 17:14-0400 SaO2% (BldA) [Mass fraction]93 %Mragarette Estevez EQUIPMENT MAINT TECH-C Work Phone: [facility]10-13-2025 17:14-0400 Systolic blood dpaujyci135 mm[Hg]Margarette Estevez EQUIPMENT MAINT TECH-C Work Phone: [facility]08-11-2025 18:14-0400 Body mass index (BMI) [Ratio]28.18 kg/m2Margarette Estevez EQUIPMENT MAINT TECH Work Phone: [facility]SmithvilleAilxzcrsyp91-39-3906 18:14-0400Body temperature 97.81 [degF]Margarette Estevez EQUIPMENT MAINT TECH Work Phone: [facility]SmithvillePuyxwbglsn41-60-8257 18:14-0400Body iyuvsd73.2 kg Margarette Estevez EQUIPMENT MAINT TECH Work Phone: [facility]–SmithvilleXaxrbeuvbv46-45-4124 18:14-0400Diastolic blood xfodbacr78 mm[Hg]Margarette Estevez EQUIPMENT MAINT TECH Work Phone: [facility]–SmithvilleElnielibgz77-53-2537 18:14-0400Heart rate78 /min Margarette Estevez EQUIPMENT MAINT TECH Work Phone: [facility]SmithvilleQprtdikpbp96-86-7234 18:14-0400Respiratory rate16 /minLisa Estevez EQUIPMENT MAINT TECH Work Phone: [facility]SmithvilleChcxivjdtc06-10-3398 18:14-4988EzX5% (BldA) [Mass fraction]96 %Margarette Estevez EQUIPMENT MAINT TECH Work Phone: [facility]–SmithvilleQumjblvlpx41-95-3923 18:14-0400Systolic blood eapvlehi589 mm[Hg]Margarette Estevez EQUIPMENT MAINT TECH Work Phone: [facility]–SmithvilleGicczuqnva73-83-3736 17:55-0400Body mass index (BMI) [Ratio]29.02 kg/m2Margarette Estevez EQUIPMENT MAINT TECH Work Phone: [facility]SmithvilleVlqhgrjdxi43-77-1999 17:55-0400Body temperature 98.49 [degF]Margarette Aritawesley EQUIPMENT MAINT TECH Work Phone: [facility]SmithvilleRlvdmsadkf81-91-5194 17:55-0400Body ycxycc72.56 kgMargarette Estevez EQUIPMENT MAINT TECH Work Phone: [facility]–SmithvilleZwacygzvai73-06-2947 17:55-0400Diastolic blood bnzebzuh39 mm[Hg]Margarette Aritaz EQUIPMENT MAINT TECH Work Phone: [facility]SmithvilleWuutzhgrsk41-68-0276 17:55-0400Heart rate63 /min Margarette Estevez EQUIPMENT MAINT TECH Work Phone: [facility]SmithvilleWsddjoppyo04-57-4769 17:55-0400Respiratory rate18 /minMargarette Estevez EQUIPMENT MAINT TECH Work Phone: [facility]–SmithvilleTymvroflnm67-74-8824 17:55-1410PsB5% (BldA) [Mass fraction]99 %Margarette Aritawesley EQUIPMENT MAINT TECH Work Phone: [facility]SmithvilleMplscmwxjs56-76-1553 17:55-0400Systolic blood zualfcft689 mm[Hg]Margarette Estevez EQUIPMENT MAINT TECH Work Phone: [facility]SmithvillePtorejlrys82-52-8178 15:54-0400Body muxapr290.91 cmAalcira Manning MD Work Phone: [facility]06-10-2025 15:54-0400 Body mass index (BMI) [Ratio]28.9 kg/v4BtlcfoipyjnChinmay Manning MD Work Phone: [facility]06-10-2025 15:54-0400 Body .55 kgChinmay Manning MD Work Phone: [facility]06-10-2025 15:54-0400 Diastolic blood vkpeypfl04 mm[Hg]Chinmay Manning MD Work Phone: [facility]06-10-2025 15:54-0400 Heart rate71 /minChinmay Manning MD Work Phone: [facility]06-10-2025 15:54-0400 Respiratory rate18 /minChinmay Manning MD Work Phone: [facility]06-10-2025 15:54-0400 SaO2% (BldA) [Mass fraction]97 %Chinmay Manning MD Work Phone: [facility]06-10-2025 15:54-0400 Systolic blood yzdkjbqb159 mm[Hg]Chinmay Manning MD Work Phone: [facility]03-12-2025 15:46-0400 Body mass index (BMI) [Ratio]31.15 kg/m2Lisa Lylaz EQUIPMENT MAINT TECH Work Phone: [facility]SmithvilleHazdwscbra48-97-1864 15:46-0400Body temperature 98.4 [degF]Margarette Herb EQUIPMENT MAINT TECH Work Phone: [facility]SmithvilleGbfknvkeup75-43-0934 15:46-0400Body dsoblz40.54 kgLisa Mikalhholz EQUIPMENT MAINT TECH Work Phone: [facility]–SmithvilleZaddpacwqi76-91-9348 15:46-0400Diastolic blood mm[Hg]Margarette Mikalhholz EQUIPMENT MAINT TECH Work Phone: [facility]SmithvilleQxiggeungm10-88-2505 15:46-0400Heart rate77 /min Margarette Mikalhholz EQUIPMENT MAINT TECH Work Phone: [place] [address]Udbwwklqrq62-53-9032 15:46-0400Respiratory rate20 /minLisa Mikalhholz EQUIPMENT MAINT TECH Work Phone: [place] [address]Eawcnkpfdn35-43-1072 15:46-9577JrL2% (BldA) [Mass fraction]97 %Margarette Mikalhholz EQUIPMENT MAINT TECH Work Phone: [place] [address]Jdrzkqljgh99-55-2144 15:46-0400Systolic blood siaoqfzy906 mm[Hg]Margarette Mikalhholz EQUIPMENT MAINT TECH Work Phone: [facility]–SmithvilleRmhbotiaji61-30-0811 15:51-0500Body doqekx463.64 cmAalcira Manning MD Work Phone: [phone]14[facility]02-04-2025 15:51-0500 Body mass index (BMI) [Ratio]32 kg/y1EunsfebupzoChinmay Manning MD Work Phone: [phone]90[facility]02-04-2025 15:51-0500 Body ccyyfvzoaez55.1 [degF]Chinmay Manning MD Work Phone: [phone] [place], [place] 1707702-04-2025 15:51-0500 Body fxozbu37.92 kgChinmay Manning MD Work Phone: 1(765)[address] [place], [place] 1707702-04-2025 15:51-0500 Diastolic blood xyzrylcc26 mm[Hg]Chinmay Manning MD Work Phone: 1(476)280-[address] [place], [place] 4374602-04-2025 15:51-0500 Heart rate80 /minChinmay Manning MD Work Phone: [phone]02-04-2025 15:51-0500 Respiratory rate18 /minChinmay Manning MD Work Phone: [phone])[address] [place], [place] 17[address]702-04-2025 15:51-0500 SaO2% (BldA) [Mass fraction]99 %Chinmay Manning MD Work Phone: [phone]02-04-2025 15:51-0500 Systolic blood jhsbnpeb490 mm[Hg]Chinmay Manning MD Work Phone: [phone])[address]12-11-2024 16:55-0500 Body eezpsu635.6 cmRosita Garza NP Work Phone: [facility]SmithvilleKxmvzqdfcs98-08-9468 16:55-0500Body mass index (BMI) [Ratio]31.64 kg/n2PynzueyrRosita Armijopatrick EQUIPMENT MAINT TECH Work Phone: [facility]SmithvilleDelxidpmrp67-94-7183 16:55-0500Body temperature 97.7 [degF]Rosita Armijopatrick EQUIPMENT MAINT TECH Work Phone: [facility]SmithvilleGqsrpsolun76-54-1608 16:55-0500Body ehlhco95.91 kgRosita Berrytrick EQUIPMENT MAINT TECH Work Phone: [facility]SmithvilleLpwcryuqgh96-22-2904 16:55-0500Diastolic blood wuovitzl29 mm[Hg]Rosita Armijopatrick EQUIPMENT MAINT TECH Work Phone: [facility]SmithvilleDmmfrrnzep12-74-0633 16:55-0500Heart ghqc541 /min Rosita Berrytrick EQUIPMENT MAINT TECH Work Phone: [facility]SmithvilleZrkpzxukji28-58-4514 16:55-0500Respiratory rate16 /minRosita Berrytrick EQUIPMENT MAINT TECH Work Phone: [facility]SmithvilleNkkjefsvdk83-86-2955 16:55-8156TpU1% (BldA) [Mass fraction]97 %Rosita Berrytrick EQUIPMENT MAINT TECH Work Phone: [facility]–SmithvilleQekehwwjad60-34-9334 16:55-0500Systolic blood mm[Hg]Rosita Berrytrick EQUIPMENT MAINT TECH Work Phone: noBarnes-Jewish [facility] County HospitalJqxpnosttl06-35-0253 15:13-0400Body mass index (BMI) [Ratio]31.13 kg/m2Danya CHATTERJEE Work Phone: noBarnes-Jewish West County HospitalAfdalzbeuh73-87-3703 15:13-0400Body qwgyvl06.81 kgDanya CHATTERJEE Work Phone: [place] [address]Iovcxfhqdx16-06-8009 15:13-0400Diastolic blood mm[Hg]Danya CHATTERJEE Work Phone: [place] [address]Kxmxleomub32-38-1487 15:13-0400Systolic blood uaxgehjo828 mm[Hg]Danya CHATTERJEE Work Phone: noBarnes-Jewish West County HospitalRmvtmablit82-80-3455 16:55-0400Body uauxxt515.9 cmBrittmandy Garza EQUIPMENT MAINT TECH Work Phone: [facility]villeYrjnjyxykb98-12-3627 16:55-0400Body mass index (BMI) [Ratio]31.32 kg/d9Eiazyovh Garza EQUIPMENT MAINT TECH Work Phone: [facility]villeHvjmzjrzjt73-98-6694 16:55-0400Body temperature 96.8 [degF]Rosita Garza EQUIPMENT MAINT TECH Work Phone: [facility]–[place]villeJeturpxmvm90-04-4597 16:55-0400Body .36 kgBrittmandy Garza EQUIPMENT MAINT TECH Work Phone: [facility]villeTfpkfypuuj83-21-4025 16:55-0400Diastolic blood yeqkqger80 mm[Hg]Rosita Garza EQUIPMENT MAINT TECH Work Phone: [facility]–[place]villePbblskzsoo66-07-5519 16:55-0400Heart dalk186 /min Rosita Garza EQUIPMENT MAINT TECH Work Phone: [facility]villeComment on above:96% [id number] 16:55-0400Systolic blood ekzxenrw021 mm[Hg]Rosita Garza EQUIPMENT MAINT TECH Work Phone: [facility]villeNgwgslncqp33-92-8437 16:24-0400Body zdzwfi066.91 cmMD Chinmay Manning Work Phone: [place] [facility] 16:24-0400 Body mass index (BMI) [Ratio]31.8 kg/m2MD Chinmay Manning Work Phone: [facility]09-04-2024 16:24-0400 Body ymmfuztulcz99.8 [degF]MD Chinmay Manning Work Phone: [facility]09-04-2024 16:24-0400 Body eiiysc41.88 kgMD Chinmay Manning Work Phone: [phone]09-04-2024 16:24-0400 Diastolic blood xorlgzck32 mm[Hg]MD Chinmay Manning Work Phone: [phone]09-04-2024 16:24-0400 Heart rate97 /minMD Chinmay Manning Work Phone: [phone]98[facility]09-04-2024 16:24-0400 Respiratory rate18 /minMD Chinmay Manning Work Phone: [phone]89[facility]09-04-2024 16:24-0400 SaO2% (BldA) [Mass fraction]94 %MD Chinmay Manning Work Phone: [phone]82[facility]09-04-2024 16:24-0400 Systolic blood jvaovvpu548 mm[Hg]MD Chinmay Manning Work Phone: [phone]60[facility]05-28-2024 15:25-0400 Body mcqomj828.91 cmMD Chinmay Manning Work Phone: [phone]70[facility]05-28-2024 15:25-0400 Body mass index (BMI) [Ratio]32.3 kg/m2MD Chinmay Manning Work Phone: [phone]70[facility]05-28-2024 15:25-0400 Body hzjwjvicgdt29.3 [degF]MD Chinmay Manning Work Phone: [phone]12[facility]05-28-2024 15:25-0400 Body zecojl36.24 kgMD Chinmay Manning Work Phone: [phone]26[facility]05-28-2024 15:25-0400 Diastolic blood mm[Hg]MD Chinmay Manning Work Phone: [facility]05-28-2024 15:25-0400 Heart xbde315 /minMD Chinmay Manning Work Phone: [facility]05-28-2024 15:25-0400 Respiratory rate16 /minMD Chinmay Manning Work Phone: [facility]05-28-2024 15:25-0400 SaO2% (BldA) [Mass fraction]96 %MD Chinmay Manning Work Phone: [facility]05-28-2024 15:25-0400 Systolic blood mm[Hg]MD Chinmay Manning Work Phone: [facility]07-07-2022 16:30-0400 Body bzafxr611.91 Miso Other [employer] Other 07-07-2022 16:30-0400Body mass index (BMI) [Ratio] 21.62 kg/x7Uflsfexw [employer] Other [employer] Other 07-07-2022 16:30-0400Body ekfhtn65.69 kgLawrence [employer]oc[employer] Other [employer] Other 04-05-2022 16:45-0400Body sbetgg588.91 Miso Other [employer] Other 04-05-2022 16:45-0400Body mass index (BMI) [Ratio] 20.98 kg/h7Gfnoyibu [employer] Other [employer] Other 04-05-2022 16:45-0400Body eksgsb58.88 kgLawrence [employer]ocutis Other [employer] Other 12-30-2021 11:05-0500Body xyuvgi706.91 cmAmber Susienty Other [employer] Other 12-30-2021 11:05-0500Body abkjzrjswia25.5 [degF]Christiana Ginty Other [employer] Other 12-30-2021 11:05-0500Diastolic blood vblfluzx837 mm[Hg]Christiana Ginty Other [employer] Other 12-30-2021 11:05-0500Respiratory rate18 /minAmber Ginty Other [employer] Other 12-30-2021 11:05-3256PbJ7% (BldA) [Mass fraction]98 % Christiana Ginty Other [employer] Other 12-30-2021 11:05-0500Systolic blood fujcirdy925 mm[Hg] Christiana Ginty Other [employer] Other 12-22-2021 12:00-0500Body koduxb177.91 cmRobert [place] Other [employer] Other 12-22-2021 12:00-0500Body mass index (BMI) [Ratio] 17.88 kg/s6Gxjcaj [place] Other [employer] Other 12-22-2021 12:00-0500Body nggwne25.03 kgRobert [place] Other [employer] Other Encounters Encounter DateEncounter TypeCare ProviderFacilityStart: 05-20-2025 End: 26-72-8767Jxnnmnjnt Result EncounterDanya Najera SHENA Work Phone: noms External Department UnsolicitedStart: 05-20-2025 End: 14-51-1652Ovyhdffys Result EncounterDanya Najera SHENA Work Phone: noms External Department UnsolicitedStart: 05-02-2025 End: 03-79-4805Tnuxvxy encounter procedureDanya Najera SHENA Work Phone: noms HealthcareStart: 05-02-2025 End: 94-82-7415Yexihbvm preventive med est patient 40-64yrsAmy Curry SHENA Work Phone: noms [place] OBGYNComment on above:Well woman exam with routine gynecological exam; H/O: hysterectomy; Encounter for screening mammogram for malignant neoplasm of breast; Hormone imbalanceStart: 05-02-2025 End: 57-98-4842jphgmwkgfhTEA CURRYNot AvailableStart: 05-02-2025 End: 85-53-8538Fododd flowsheetDanya Najera SHENA Work Phone: noms [place] OBGYNStart: 05-02-2025 End: 66-22-1201Fawoop flowsheetDanya Najera SHENA Work Phone: noms [place] OBGYNStart: 05-02-2025 End: 62-63-2378Nssgwleho Result EncounterDanya Najera SHENA Work Phone: noms External Department UnsolicitedStart: 04-25-2025 End: 36-04-6418nflaxyrciwRjdd J Aichholz NP-C Work Phone: [facility] Work Phone: Start: 04-25-2025 End: 22-80-7805Weofode encounter procedureMargarette [facility] Family Medicine Jesse Work Phone: Start: 02-21-2025 End: 92-74-8761Cggplh outpatient visit 25 minutesLisa Aichholz EQUIPMENT MAINT TECH Work Phone: NOPA CWM FMComment on above:Primary hypertension (Primary Dx); Chronic kidney disease, stage 3b (CMS-HCC); Class 1 obesity due to excess calories with serious comorbidity in adult, unspecified BMI; Cigarette nicotine dependence without complication; Migraine without aura and without status migrainosus, not intractable ; Bipolar 2 disorder (HCC); Overweight (BMI 25.0-29.9); Bipolar II disorder (HCC)Start: 02-21-2025 End: 56-42-1217vywfirfgocLASY AICHHOLZNot AvailableStart: 02-21-2025 End: 45-30-7464Fwaqzf flowsheetLisa Aichholz EQUIPMENT MAINT TECH Work Phone: NOMS CWM FMStart: 02-21-2025 End: 35-13-8897Xbwsyf flowsheetLisa Aichholz EQUIPMENT MAINT TECH Work Phone: [facility] CWM FMStart: 02-09-2025 End: 48-41-3879ZsugxhCtoj Aichholz EQUIPMENT MAINT TECH Work Phone: [facility] CWM FMComment on above:Cigarette nicotine dependence without complicationStart: 01-13-2025 End: 67-50-8470VblnbyHhyt Aichholz EQUIPMENT MAINT TECH Work Phone: NOXE CWM FMComment on above:Nausea and vomiting, unspecified vomiting type (Primary Dx)Start: 12-22-2024 End: 38-28-3633Etcnxn outpatient visit 25 minutesLisa Aichholz EQUIPMENT MAINT TECH Work Phone: NOPN CWM FMComment on above:Primary hypertension (Primary Dx); Chronic kidney disease, stage 3b (HCC) (CMS/HCC); Class 1 obesity due to excess calories with serious comorbidity in adult, unspecified BMI; Anxiety; Bipolar II disorder (HCC); Cigarette nicotine dependence without complication; Migraine without aura and without status migrainosus, not intractable ; Bipolar 2 disorder (HCC)Start: 12-22-2024 End: 80-16-7281nqussfpygvHABR AICHSilva AvailableStart: 12-21-2024 End: 35-78-9664jklmqbwgsaDdnmtssojbh Abdelaziz MD Work Phone: [facility] Work Phone: Start: 12-21-2024 End: 90-73-4558Vtkarzg encounter procedureChinmay Manning MD Work Phone: [facility] Ne[facility] Jesse Work Phone: Start: 12-14-2024 End: 08-36-8686Wgtsoekdq Result EncounterGeneric External Data ProviderNOMS External Department UnsolicitedStart: 12-14-2024 End: 15-00-4169Rsryqeuny Result EncounterGeneric External Data ProviderNOMS External Department UnsolicitedStart: 99-04-7194Ioe-patient / Non-visit Chinmay Manning MD Work Phone: [facility] Work Phone: Start: 61-58-2225Qukuymrowj RecurringChinmay Manning MD Work Phone: [facility] CredibleStart: 09-22-2024 End: 42-92-7595Tweltb outpatient visit 25 minutesLisa Herb EQUIPMENT MAINT TECH Work Phone: noms CW FMComment on above:Primary hypertension (CMS/HCC) (Primary Dx); [...] spasm; Bipolar 2 disorder (CMS/HCC)Start: 09-22-2024 End: 71-11-0095nejjhzlxxsYMMX AICHHOLZNot AvailableStart: 09-22-2024 End: 03-03-6922Rlowqk flowsheetLisa Aichholz EQUIPMENT MAINT TECH Work Phone: noms CWM FMStart: 09-22-2024 End: 06-54-8706Khjlpt flowsheetLisa Estevez EQUIPMENT MAINT TECH Work Phone: noms CWM FMStart: 08-17-2024 End: 71-80-2328kyszzrzpzaQuvwvbxxatz Abdelaziz MD Work Phone: [facility] Work Phone: Start: 08-17-2024 End: 59-07-5229Cygvmpo encounter procedureChinmay Manning MD Work Phone: [facility] Nephrology Jesse Work Phone: Start: 45-66-6353Rnt-patient / Non-visitChinmay Manning MD Work Phone: [facility] Work Phone: Start: 29-33-6369Gckmkleqkk RecurringChinmay Manning MD Work Phone: [facility] CredibleStart: 06-23-2024 End: 54-90-4069Otfsjy outpatient visit 15 Angelia Garza EQUIPMENT MAINT TECH Work Phone: noms CWM FMComment on above:Primary hypertension (CMS/HCC) (Primary Dx); Stage 3a chronic kidney disease (HCC) (CMS/HCC); Class 1 obesity due to excess calories without serious comorbidity with body mass index (BMI) of 33.0 to 33.9 in adult; Screening for hyperlipidemia; Tobacco dependency; Bipolar 2 disorder (CMS/HCC); Migraine without aura and without status migrainosus, not intractable (CMS/HCC); Back spasmStart: 06-23-2024 End: 95-52-7467wtuxliagnjOJGDSJUE FITZPATRICKNot AvailableStart: 06-23-2024 End: 38-85-6755Jjhqry flowsheetBrittany Garza EQUIPMENT MAINT TECH Work Phone: noms CWM FMStart: 06-23-2024 End: 43-08-0163Jnznor flowsheetBrittany Garza EQUIPMENT MAINT TECH Work Phone: noms CW FMStart: 05-27-2024 End: 75-31-7732Rveiwzihb encounterDanya CHATTERJEE Work Phone: noms BCP OBStart: 05-15-2024 End: 32-72-6601Mabgvnuye Result EncounterDanya CHATTERJEE Work Phone: noms External Department UnsolicitedStart: 05-15-2024 End: 51-60-0602Worgbfeis Result EncounterAmy Curry CHATTERJEE Work Phone: noms External Department UnsolicitedStart: 05-14-2024 End: 51-13-4865Nngbiqfyc Result EncounterAmy Curry CHATTERJEE Work Phone: noms External Department UnsolicitedStart: 05-14-2024 End: 49-83-4036Ygoritlmy Result EncounterDanya CHATTERJEE Work Phone: noms External Department UnsolicitedStart: 04-28-2024 End: 40-06-5583Koiwyle encounter procedureDanya CHATTERJEE Work Phone: [facility] Work Phone: Start: 04-28-2024 End: 97-60-8619Zphkzurv preventive med est patient 40-64yrsAmy Curry CHATTERJEE Work Phone: noms BCP OBComment on above:Well woman exam with routine gynecological exam; Breast cancer screening by mammogram; Postmenopausal state; Hormone imbalanceStart: 04-28-2024 End: 38-79-4960Rafpug flowsheetDanya CHATTERJEE Work Phone: noms BCP OBStart: 04-28-2024 End: 46-57-3510Kqhrgb flowsRobert CHATTERJEE Work Phone: noms BCP OBStart: 04-28-2024 End: 82-77-6702Ljmakfnjw Result EncounterDanya CHATTERJEE Work Phone: noms External Department UnsolicitedStart: 03-24-2024 End: 12-71-9002Vxyoms outpatient visit 15 minutesBrquynh Garza EQUIPMENT MAINT TECH Work Phone: noms CWM FMComment on above:Primary hypertension (CMS/HCC) (Primary Dx); Stage 3a chronic kidney disease (HCC) (CMS/HCC); Class 1 obesity due to excess calories without serious comorbidity with body mass index (BMI) of 33.0 to 33.9 in adult; Tobacco dependency; Bipolar 2 disorder (CMS/HCC)Start: 03-24-2024 End: 45-72-3832Rhjeja flowsheetRosita Garza EQUIPMENT MAINT TECH Work Phone: noms CWM FMStart: 03-24-2024 End: 89-80-0186Obtnlj flowsheetRosita Garza EQUIPMENT MAINT TECH Work Phone: noms CWM FMStart: 03-17-2024 End: 06-66-6559iwaulczbcjNDMD Chinmay Manning Work Phone: [facility] Work Phone: Start: 03-17-2024 End: 19-24-4527Tsjlant encounter procedureMD Chinmay Manning Work Phone: [facility] Nephrology [place] Work Phone: Start: 97-88-9290Zre-patient / Non-visitMD Chinmay Manning Work Phone: [facility] Work Phone: Start: 63-51-4834Vjbtmgfmkb RecurringMD Chinmay Manning Work Phone: [facility] CredibleStart: 12-09-2023 End: 95-74-6566ajgwbnibecOTMD Chinmay Manning Work Phone: [facility] Work Phone: Start: 12-09-2023 End: 33-95-2899Suxqaoj encounter procedureMD Chinmay Manning Work Phone: [facility] Nephrology Jesse Work Phone: Start: 54-24-9829Paatjvwqjq RecurringMD Chinmay Manning Work Phone: [facility] CredibleStart: 08-25-2023 End: 54-88-0859Mtvwrbftw Result EncounterSmary Hernandes MD Work Phone: noms External Department UnsolicitedStart: 08-25-2023 End: 88-51-6598Fiulhbvnk Result EncounterSmary Hernandes MD Work Phone: noms External Department UnsolicitedStart: 08-22-2023 End: 93-42-2047lvvexzvxkhAezyp Jenn Other [place] [employer] Other Start: 87-41-4051Kxgxaohbn Result EncounterSmary Hernandes MD Work Phone: noms External Department UnsolicitedStart: 08-22-2023 Clinisync Result EncounterSmary Hernandes MD Work Phone: noms External Department UnsolicitedStart: 08-22-2023 Telephone encounterAbdmariano TorresrFPG Urgent Care ClydeStart: 06-27-2023 End: 89-69-6784Jikzbdzvb Result EncounterSmary Hernandes MD Work Phone: noms External Department UnsolicitedStart: 06-27-2023 End: 94-46-5640Uzjwrldzg Result EncounterSmary Fawwad MD Work Phone: noms External Department UnsolicitedStart: 07-02-2022 End: 40-70-4766cpimkbvocgLOLDXKEP CULLENFacility:A1Yfbic: 06-07-2022 End: 04-76-1875xovrdfiosnBI ETHAN HOUSEFacility:D5Sgftk: 01-28-2022 End: 16-25-5071qcesttepjkNzkgwdll Zaira Other [employer] Other Start: 55-74-9155Mnhssansy encounterLawrence Zaira [facility] GastroenterologyStart: 01-17-2022 End: 94-71-8438bjhhijumzlIpjgzgtb Zaira Other no[employer]und [employer] Other Start: 32-62-4358Xyxiwu outpatient visit 15 minutes Bahman MarinelliG GastroenterologyStart: 11-09-2021 End: 81-85-4006gokukyqoacSxgwmdny Zaira Other [employer] Other Start: 60-63-0713Vvinquxqy encounterLawrence Zaira [facility] GastroenterologyStart: 10-16-2021 End: 13-38-3762hguexoefapPcqjnzpy Zaira Other [employer] Other Start: 40-21-7216Inkavt outpatient visit 15 minutes Bahman MarinelliG GastroenterologyStart: 10-10-2021 End: 96-78-3727Wncxhtxoq department patient visitCharles HouseFacility:[facility] Centertart: 07-28-2021 End: 52-14-3104Adcimmqdhe and management of Protestant Hospitaltart: 07-12-2021 End: 56-51-0047nvqqusvhacMmeqm Ginty Other [facility] [employer] Other Start: 36-62-6417Jlcmsq outpatient visit 15 minutes Christiana GintyFPG Urgent Care ClydeStart: 07-04-2021 End: 23-76-3032gboidwaqoaBsaqzh Chinedu II Other [facility] [employer] Other Start: 76-41-6797Umujak outpatient new 30 minutes Justin Chinedu IIFPG [place] Procedures DateProcedureProcedure DetailPerforming ClinicianStart: 68-70-0882BU TOMOSYNTHESIS SCREENING Anjum CHATTERJEE Work Phone: Start: 66-84-5189LKE,APTIMA HPV,AGE GDLNDanya CHATTERJEE Work Phone: Start: 42-08-6225EuwapfoytneXgul Herb EQUIPMENT MAINT TECH Work Phone: Start: 47-70-2431ICRU CBC WITH PLATELET NO DIFFERENTIALGeneric External Data ProviderStart: 57-70-0789NUU URINALYSISGeneric External Data ProviderStart: 96-38-5494WC DEXA AXIAL SKELETONDanya CHATTERJEE Work Phone: Start: 50-73-1301BW TOMOSYNTHESIS SCREENING Anjum CHATTERJEE Work Phone: Start: 24-44-8744XqgkotehpgbVjs Ramey PA Work Phone: Start: 36-94-5551WIR,APTIMA HPV,AGE Leilani CHATTERJEE Work Phone: Start: 09-60-2194Ozhtqbfdzmy observation [Identifier] in Cervix by Cyto stainMargarette Estevez EQUIPMENT MAINT TECH Work Phone: Start: 60-92-5450OOC TEST, EXTERNALCorey Arminda DO Work Phone: Start: 05-30-2463Fwj abdomen w/o & w/contrast material Shaikh Cecilio WALKER Work Phone: Start: 61-58-5408IIF Hossein Hernandes MD Work Phone: Start: 40-04-8534TTW Julia Hernandes MD Work Phone: Start: 62-25-4101LB RENAL Steve Hernandes MD Work Phone: H/O: hysterectomyH/O: hysterectomyDanya CHATTERJEE Work Phone: Plan of Treatment DateCare ActivityDetailAuthorStart: 09-76-3450Ygwajzjpl for malignant neoplasm of colonNOMS HealthcareStart: 96-69-2084Sdavqclfn for malignant neoplasm of cervixNOMS HealthcareStart: 05-11-2026 End: 92-96-9787Yzbbmoc encounter bifgrjiep68/29/2026 3:00 PM EDT Procedure Visit NOMDiana RIOS [address] [place] [id number] Danya Najera PA [address] [place] [address] NOMDiana Madrigal OBGYNStart: 05-14-2025 Screening for malignant neoplasm of breastMammogramNOMS HealthcareStart: 05-02-2025 End: 72-97-7391Qvwbiiv encounter procedureNOMS BCP OBComment on above:Arrived Start: 05-02-2025 End: 30-45-5764UF Breast - bilateral ScreeningBilateral screening mammogram Imaging Routine Encounter for screening mammogram for malignant neoplasm of breast Expected: 05/02/2025 (Approximate), Expires: 07/02/2026[facility] Work Phone: comment on above:Expected: 05/02/2025 (Approximate), Expires: 07/02/2026Start: 04-25-2025 End: 84-11-2833Qeoppzw encounter lshfbbrsy41/13/2025 5:00 PM EDT Office Visit NOMS [facility] [address] [place] [id number] Margarette Estevez NP [address] [place] [address] [facility] FMStart: 72-54-4598Rlpxtvyzg vaccinationNOAZ HealthcareStart: 02-21-2025 End: 25-75-1841Mczrdrq encounter procedureNOPHYSICIANS [facility] [place] FMComment on above:Primary hypertension (Primary Dx); Chronic kidney disease, stage 3b (CMS-HCC); Class 1 obesity due to excess calories with serious comorbidity in adult, unspecified BMI; Cigarette nicotine dependence without complicationStart: 12-22-2024 End: 98-80-7690Bhlaawa encounter /11/2025 6:00 PM EDT Office Visit NOM[facility] [address] [place] [address] Margarette Estevez, JAIME [address] [place] [phone] [facility] FMStart: 08-64-6650Tvnxbmgbb vaccinationInfluenza Vaccine (#1)[facility] HealthcareComment on above:Postponed from 03/14/2024 (Patient Refused)Start: 09-22-2024 End: 91-47-8844Ocutmzh encounter ofpkkqylq93/12/2025 3:20 PM EDT [facility] [address] [place] [address] Margarette Estevez, EQUIPMENT MAINT TECH [address] [place] [address] Primary hypertension (CMS/HCC) (Primary Dx); Bipolar II [...] nuts (other than peanuts); Mixed hyperlipidemia (CMS/HCC)NOMS CWM FMComment on above:Primary hypertension (CMS/HCC) (Primary [...] than peanuts); Mixed hyperlipidemia (CMS/HCC)Start: 06-23-2024 End: 64-28-5251Lavuvjb encounter procedureNOMS CW FMComment on above:Arrived Start: 04-28-2024 End: 69-89-5441Tlpglmr encounter kddtdatuz39/16/2024 3:00 PM EDT Office Visit NOM[facility] OB [address] [place] [address] Danya Najera PA [address] [place] [address] ArrivedNOMS [facility] OBComment on above:ArrivedStart: 04-28-2024 End: 66-96-0909KIX Skeletal system Views for bone densityDEXA bone density Imaging Routine Postmenopausal state Expected: 04/28/2024 (Approximate), Expires:04/28/2025NOAZ HealthcareComment on above:Expected: 04/28/2024 (Approximate), Expires: 04/28/2025Start: 04-28-2024 End: 98-79-5702CS Breast - bilateral ScreeningBilateral screening mammogram Imaging Routine Breast cancer screening by mammogram Expected: 04/28/2024, Expires: 06/28/2025NO[facility] Healthcare Work Phone: comment on above:Expected: 04/28/2024, Expires: 06/28/2025Start: 03-24-2024 End: 49-31-7692Urupnik encounter gmrgqogwa41/11/2024 5:00 PM EDT Office Visit NOMS C[facility] FM [address] [place] [address] Rosita Garza NP [address] [place] [address] ArrivedNOAZ CWM FMComment on above:ArrivedStart: 03-14-2024 Influenza vaccinationInfluenza Vaccine (#1)[facility] HealthcareStart: 11-17-2023 End: 93-70-2315Tgynnlb encounter rqtqealqm04/06/2024 5:00 PM EDT Office Visit [facility] IM [address] [place] [address] Shaikh Hernandes MD [address] [place] [address] NOMS CW IMStart: 37-35-4287Oqvphjuca for malignant neoplasm of breastMammogramNOMS HealthcareComment on above:Postponed from 2003 (Insurance / Financial)Start: 87-28-3398Ukdccofit vaccinationInfluenza Vaccine (#1)[facility] HealthcareStart: 36-26-2512Cuqjpcgnh for malignant neoplasm of breast MammogramNOMS HealthcareStart: 79-44-3374Vmrimdqdx for malignant neoplasm of cervixNOMS HealthcareStart: 43-01-1267Isnmbbwtv for malignant neoplasm of cervix Pap SmearNOMS HealthcareStart: 05-27-1964Medicare Annual Wellness (AWV)Medicare Annual Wellness (AWV)[facility] HealthcareStart: 21-43-6666Onwdvbxyd for malignant neoplasm of colonNOMS HealthcareRenal function 1999 panel - Serum or Plasma [facility] - Serum or Plasma [facility] CenterRenal function 1999 panel - Serum or Plasma [facility] CenterRenal function 1999 panel - Serum or Plasma [facility] CenterTHIN PREP TIS PAP AND HR HPV DNATHIN PREP TIS PAP AND HR HPV DNA Pathology and Cytology Routine Well woman exam with routine gynecological exam Ordered: 04/28/2024NOAZ HealthcareComment on above:Ordered: 04/28/2024THIN PREP TIS PAP AND HR HPV DNATHIN PREP TIS PAP AND HR HPV DNA Pathology and Cytology Routine Well woman exam with routine gynecological exam H/O: hysterectomy Ordered: 05/02/2025[facility] HealthcareComment on above:Ordered: 05/02/2025[facility] Immunizations Immunization DateImmunizationNotesCare GmunhkawCfpbnved91-99-7158bnozxla and diphtheria toxoids, adsorbed, preservative free, for adult use (5 Lf of tetanus toxoid and 2 Lf of diphtheria toxoid)Christiana Lazaro Other [facility] [employer] Other Payers DatePayer CategoryPayerPolicy [id number] [place] Blue Shield [id number] [id number] 2022Medicare [id number] 2022Medicare (Managed Care) [id number] [id number] 2.16.840.1.526559.3.57[id number] 2.16.840.1.098078.3.57[id number] 2.16.840.1.844927.3.57[id number] 2.16.840.1.617012.3.57[id number] 2..840.1.731645.3.579.[id number] 2..840.1.893325.3.57[id number] 2.0.1.903712.3.57[id number] 2.0.1.718345.3.579.2.1259 [id number] [id number] [id number]-paySelf Pay [id number] Social History DateTypeDetailFacilityUnknown if ever smokedCogan Station [employer] Other Start: 08-18-2023 End: 82-48-5595Hve Assigned At [facility] [employer] Other Start: 07-14-1983 End: 58-11-8579Lkfkerq smoking status NHISSmokes tobacco dailyNOMS Healthcare Start: 90-84-9768Hoxuahm of tobacco useCigarette SmokerNOMS HealthcareStart: 06-16-2023 End: 80-16-3621Fiymoljvwc smoked current (pack per day) - Reported0.5NOMS HealthcareStart: 06-16-2023 End: 47-30-1742Acjeacl use and exposureSmokeless tobacco non-userNOMS Healthcare Start: 08-18-2023 End: 24-67-6054Wlyhqeq intakeLifetime non-drinker (finding)[facility]villeStart: 28-65-9423Bgk Assigned At BirthNot on fileSTEWARD HEALTH CARE SYSTEM HealthcareStart: 12-09-2023 End: 29-55-9010Mwjjzid smoking status NHISSmoker (finding)[facility] Centertart: 24-77-3992Wnc Assigned At BirthFemalSumma Health Barberton Campustart: 08-17-2024 End: 06-97-4322XeaSvvixj (finding)[facility] Cent[facility]art: 35-56-8721RrmRcvhfjOYLW Healthcare Medical Equipment Procedure CodeEquipment CodeEquipment Original TextEquipment IdentifierDates Capsule endoscopy, for patency of lumen evaluationVideo capsule endoscopy system ()[id number]-GSH-2 FDAStart: 08-16-2019 Functional Status DlzgOigwzpffqbBtwjzsOsztnknu50-88-4054Lcmtdea Health Questionnaire 2 item (PHQ- 2) [Reported][facility] Clinical Notes 04-08-2014 to 05-02-2025 Note Date & EdeaOrqtSgbyxabu00-50-4350 History of Present illness Narrative* SHENA Stubbs [...] [Sulfamethoxazole-Trimethoprim] Bee Pollen Bee Venom Hives [place] Flavoring Agent (Non-Screening) Walnuts Ciprofloxacin Hives Codeine [...] (HCC) 09/22/2024 Chronic kidney disease, stage 3b ([facility]-HCC) 09/22/2024 Cigarette nicotine dependence without complication 09/22/2024 Colon cancer screening 09/22/2024 Mixed hyperlipidemia 09/22/2024 Encounter for screening for lung cancer 09/22/2024 Nausea and vomiting 01/13/2025 Overweight (BMI 25.0-29.9) 02/21/2025 Resolved Ambulatory Problems Diagnosis Date Noted Stage 3a chronic kidney disease ([facility]) 06/16/2023 Tobacco dependency 06/16/2023 Bipolar 2 disorder [...] nursing note reviewed. Exam conducted with a hadoop developer present. Vitals: Estimated body mass index is [...] behalf of: SHENA Stubbs documented in this encounterSaint [facility]SmithvilleKitwcmlrrz01-42-5377 Evaluation note* Diagnosis Primary hypertension- Primary Unspecified essential hypertension Stage 3a chronic kidney disease ([facility]-HCC) Migraine without aura and without status [...] breast Hormone imbalance documented in this [facility]villeItkefuejwg21-05-1447 History of Present illness Narrative* Margarette Estevez NP - 02/21/2025 6:47 PM EDTAssociated Problem(s): Bipolar II disorder (HCC) Follow with [facility] * Margarette Estevez NP - 02/21/2025 [...] [Sulfamethoxazole-Trimethoprim] Bee Pollen Bee Venom Hives [place] Flavoring Agent (Non-Screening) Walnuts Ciprofloxacin Hives Codeine [...] of the risks of continued smoking: stroke, VT, all forms of cancer, lung disease, and . Options for quitting smoking include: cold turkey, hypnosis, acupuncture, nicotine replacement meds(gum, lozenges, and patches), Buproprion, and Varenicline. At this time pt is encouraged to evaluate their goals for wanting to quit smoking, and reach out [facility] when ready to start this process Is [...] of the risks of continued smoking: stroke, VT, all forms of cancer, lung disease, and . Options for quitting smoking include: cold turkey, hypnosis, acupuncture, nicotine replacement meds(gum, lozenges, and patches), Buproprion, and Varenicline. At this time pt is encouraged to evaluate their goals for wanting to quit smoking, and reach out toprovider when ready to start this process Is doing well jignesh Dave in 2 months * Margarette Estevez NP [...] EDTAssociated Problem(s): Chronic kidney disease, stage 3b ([facility]-HCC) Follows with Nephrology Recommend tight blood [...] changes Current meds: losartan documented in this encounterSaint [facility]–SmithvilleLqkpuoqlja72-29-4719 Instructions* Patient Instructions* Margarette Estevez NP - 02/21/2025 6:00 PM EDT Keep up the great work documented in this encounterSaint Luke[facility] Hospital–SmithvilleHofaicnsgl99-76-2422 Evaluation note* Diagnosis Primary hypertension- Primary Unspecified [...] Other bipolar disorders documented in this [facility]SmithvilleWpuzpgjanz88-96-4539 Evaluation note* Diagnosis Primary hypertension- Primary Unspecified [...] dependence without complication documented in this encounter [facility]SmithvilleBjnxnvanez51-40-8936 Evaluation note* Diagnosis Primary hypertension- Primary Unspecified [...] vomiting type- Primary documented in this encounter [facility]SmithvilleQjwmpgbyat22-77-7029 History of Present illness Narrative* ALEJANDRO EVANGELISTA - 12/22/2024 6:00 PM EDT Pt has gotten the okay from her counselor and shift nurse manager to allow her to go on chantix [...] [Sulfamethoxazole-Trimethoprim] Bee Pollen Bee Venom Hives [place] Flavoring Agent (Non-Screening) Walnuts Ciprofloxacin Hives Codeine [...] psych Bipolar II disorder (HCC) Follow with [facility] Chronic kidney disease, stage 3b (HCC) ([facility]/HCC) Follows with Nephrology Recommend tight blood pressure [...] of the risks of continued smoking: stroke, VT, all forms of cancer, lung disease, and [...] of the risks of continued smoking: stroke, VT, all forms of cancer, lung disease, and [...] Problem(s): Chronic kidney disease, stage 3b (HCC) ([facility]/HCC) Follows with Nephrology Recommend tight blood pressure control Limit nephrotoxic drugs 08/07: cr 1.69 * Margarette Estevez NP - 12/22/2024 7:45 AM EDTAssociated Problem(s): Primary hypertension Please check blood pressure daily and record DASH diet Limit caffeine Take medication as directed Contact office if chest pain, pressure, dizziness, shortness of breath, swelling legs Recommend slow position changes Current meds: losartan documented in this encounterSaint [facility] Hospital–SmithvilleSagftfqxtn08-71-3893 Instructions* Patient Instructions* Margarette Estevez NP - [...] office if these occur. documented in this encounterSaint Luke's [facility] Hospital–SmithvilleImtqykczts25-23-7011 Evaluation note* Diagnosis Primary hypertension- Primary Unspecified essential hypertension Stage 3a chronic kidney disease (HCC) (CMS/HCC) Migraine without aura and without status migrainosus, not intractable Tobacco dependency Tobacco use disorder Primary hypertension- Primary Unspecified essential hypertension Stage 3a chronic kidney disease (HCC) (CMS/HCC) Abnormal renal ultrasound Primary hypertension- Primary Unspecified [...] Other bipolar disorders documented in this encounter [facility]SmithvilleUwsyxeuofn59-28-2514 History of Present illness Narrative* Margarette Estevez [...] of the risks of continued smoking: stroke, VT, all forms of cancer, lung disease, and [...] changes Current meds: losartan documented in this [facility]03-12-2025 Instructions* Patient Instructions* Margarette Estevez NP - 09/22/2024 3:20 PM EDT No medication changes documented in this [facility]03-12-2025 Evaluation note* Diagnosis Primary hypertension ([facility]/HCC)- Primary Unspecified essential hypertension Stage 3a chronic kidney disease (HCC) ([facility]) Migraine without aura and without status migrainosus, not intractable ([facility]/HCC) Tobacco dependency Tobacco use disorder Primary hypertension ([facility]/HCC)- Primary Unspecified essential hypertension Stage 3a chronic kidney disease (HCC) ([facility]/HCC) Abnormal renal ultrasound Primary hypertension ([facility]/HCC)- Primary Unspecified essential hypertension Stage 3a chronic kidney disease (HCC) ([facility]/HCC) Tobacco dependency Tobacco use disorder Bipolar 2 disorder ([facility]/HCC) Other bipolar disorders Allergic reaction to bee sting Screening for hyperlipidemia- Primary Screening for lipoid disorders Screening for diabetes mellitus Primary hypertension ([facility]/HCC) Unspecified essential hypertension Tobacco dependency Tobacco [...] Other bipolar disorders documented in this encounter [facility]SmithvilleEiclpqnwzv61-64-2150 History of Present illness Narrative* Rosita Garza [...] ESTERASE URINE NEGATIVE R Resulting Agency [facility] CKD: Follows closely with Nephrology. [...] Visit Stage 3a chronic kidney disease (HCC) ([facility]) Follows closely with Nephrology. Avoid NSAIDS, Nephrotoxic agents. Most recent creatinine 1.60 eGFR: 33 Primary hypertension ([facility]/HCC) - Primary Currently taking losartan 100mg [...] (Flexeril) 10 MG tablet documented in this encounterSaint Luke's [facility] Hospital–SmithvilleNlloxvnpdg13-18-7889 Telephone encounter Note* Telephone Encounter - SHENA Stubbs - 05/27/2024 3:10 PM EST Spoke with patient regarding dexa scan results. Patient wishes to start using fosamax weekly. We discussed how to take and issue or concerns regarding acid reflux. Patient would like to try and if necessary may need to change to IV infusion of prolia [facility] Karkpccgsy12-40-2812 Miscellaneous Notes* Telephone Encounter - SHENA Stubbs - 05/27/2024 3:10 PM EST Spoke with patient regarding dexa scan results. Patient wishes to start using fosamax weekly. We discussed how to take and issue or concerns regarding acid reflux. Patient would like to try and if necessary may need to change to IV infusion of prolia documented in this encounterSaint Luke's [facility] Hospital–SmithvilleEfqwbyapof22-22-8003 History of Present illness Narrative* SHENA Stubbs [...] [Sulfamethoxazole-Trimethoprim] Bee Pollen Bee Venom Hives [place] Flavor Walnuts Ciprofloxacin Hives Codeine Depakote [Valproic Acid] Dilaudid [Hydromorphone] E.E.S. [Erythromycin] Hydrocodone-Acetaminophen Lyrica [Pregabalin] Phenergan [Promethazine] Sulfamethoxazole Hives PROBLEMS Active Ambulatory Problems Diagnosis Date Noted Stage 3a chronic kidney disease (HCC) ([facility]) 06/16/2023 Primary hypertension ([facility]/HCC) 06/16/2023 Migraine without aura and without status migrainosus, not intractable ([facility]) 06/16/2023 Tobacco dependency 06/16/2023 Anxiety 07/28/2021 Allergy to nuts (other than peanuts) 08/18/2023 Abnormal renal ultrasound 08/18/2023 Bipolar 2 disorder ([facility]/HCC) 11/17/2023 Screening for hyperlipidemia 02/12/2024 Screening for diabetes mellitus 02/12/2024 Class 1 obesity due to excess calories without serious comorbidity with body mass index (BMI) of 33.0 to 33.9 in adult 02/12/2024 Resolved Ambulatory Problems Diagnosis Date Noted No Resolved Ambulatory Problems Past Medical History: Diagnosis Date Abnormal foot pulse Anxiety and depression ([facility]) Arthritis Atypical migraine ([facility]) Back problem Back spasm Blood pressure elevated without history of HTN Depression with anxiety Dry mouth Elevated serum creatinine History of IBS Hormone replacement therapy (postmenopausal) Irritable bowel syndrome with diarrhea Irritable bowel syndrome with diarrhea Kidney disease Migraine headache ([facility]) Migraines ([facility]/HCC) Multiple sclerosis ([facility]) Multiple sclerosis ([facility]) Onychomycosis PTSD (post-traumatic stress disorder) ([facility]) Stomach problems Urinary frequency Vision impairment HISTORY PAST MEDICAL HISTORY SOCIAL HISTORY Past Medical History: Diagnosis Date Abnormal foot pulse Anxiety and depression ([facility]/HCC) Arthritis Atypical migraine ([facility]) Back problem Back spasm Blood pressure elevated without history of HTN Depression with anxiety Dry mouth Elevated serum creatinine History of IBS Hormone replacement therapy (postmenopausal) Irritable bowel syndrome with diarrhea Irritable bowel syndrome with diarrhea Kidney disease Migraine headache ([facility]) Migraines ([facility]/HCC) Multiple sclerosis ([facility]) Multiple sclerosis ([facility]) Onychomycosis PTSD (post-traumatic stress disorder) ([facility]) Stomach problems Urinary frequency Vision impairment [...] nursing note reviewed. Exam conducted with a hadoop developer present. Vitals: Estimated body mass index is [...] behalf of: SHENA Stubbs documented in this encounterSaint [facility]'s [facility] Hospital–SmithvillePrdqviyboo71-90-0083 History of Present illness Narrative* Rosita Garza [...] Problem(s): Bipolar 2 disorder (CMS/HCC) Follows in [place]. Mood is stable, denies depressive symptoms. On [...] lozenge Bipolar 2 disorder (CMS/HCC) Follows in [place]. Mood is stable, denies depressive symptoms. On [...] options for weight loss. documented in this [facility]09-11-2024 Instructions* Patient Instructions* Rosita Garza [...] of vigorous aerobic activity documented in this [facility]07-18-2022 Evaluation note* Encounter Date Diagnosis Assessment Notes Treatment Notes Treatment Clinical Notes Jan, GERD (gastroesophageal reflux di sease) (ICD-10 - K21.9) [facility] Other 07-07-2022 Evaluation note* Encounter Date Diagnosis Assessment Notes Treatment Notes Treatment Clinical Notes Jan, Diarrhea (ICD-10 - R19.7) Continue Dicyclomine Jan,GERD (gastroesophageal reflux disease) (ICD-10 - K21.9) Continue Omeprazole without change [facility] Other 04-29-2022 Evaluation note* Encounter Date Diagnosis Assessment Notes Treatment Notes Treatment Clinical Notes Oct, GERD (gastroesophageal reflux di sease) (ICD-10 - K21.9) [facility] Other 04-05-2022 Evaluation note* Encounter Date Diagnosis Assessment Notes Treatment Notes Treatment Clinical Notes Oct, Diarrhea, unspecified (ICD-10 - R19.7) CONTINUE DICYCLOMINE DIRECTED RTO 3 MONTHS Oct,GERD (gastroesophageal reflux disease) (ICD-10 - K21.9)STOP CARAFATE [facility] Other 12-30-2021 Evaluation note* Encounter Date Diagnosis Assessment Notes Treatment Notes Treatment Clinical Notes Jun, Laceration of left m iddle finger without foreign body without damage to nail, initial encounter (ICD-10 - S61.213A) -5 sutures were placed in finger today -Tetanus injection provided in office -Return to or f/u with PCP for removal in 7-10 days -Keep dressing in place for the next 48 hours, unless it gets dirty or wet, then change dressing, apply nonstick telfa -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 Recommended that she continue with ggem-[id number] oral anti-inflammatories. Informed her that she can [...] 4 weeks to check on her progress. [facility] Other 09-26-2014 History general Narrative - Reported* [...] aboveHospitalization HistoryMS Hospitalization HistoryTBH OBSERVATION FOR ANGINA [facility] Other 09-26-2014 History general Narrative - Reported* [...] Historysee aboveHospitalization HistoryMSHospitalization HistoryTBH OBSERVATION FOR ANGINA [facility] Other Evaluation noteNo InformationNortHospital of the University of [facility] [employer] Other Evaluation note* Diagnosis Onset Date Resolution Status Chronic kidney disease, stage 3b acuteHypertensive nephropathyacuteLesion of left [place] kidneyacute [facility] Work Phone: Evaluation note* Diagnosis Onset Date Resolution Status Chronic kidney disease, stage 3b acuteHypertensive nephropathyacuteHypomagnesemiaacuteLesion of left timbi-[place]osh[place] kidneyacute [facility] Work Phone: Evaluation note* Diagnosis [...] hypertension Stage 3a chronic kidney disease (HCC) ([facility]/HCC) Class 1 obesity due to excess calories without serious comorbidity with body mass index (BMI) of 33.0 to 33.9 in adult Tobacco dependency Tobacco use disorder Bipolar 2 disorder (CMS/HCC) Other bipolar disorders [facility] Diagnosis Primary hypertension (CMS/HCC)- Primary Unspecified essential hypertension Stage 3a chronic kidney disease (HCC) ([facility]/HCC) Migraine without aura and without status migrainosus, not intractable (CMS/HCC) Tobacco dependency Tobacco use disorder Primary hypertension (CMS/HCC)- Primary Unspecified essential hypertension Stage 3a chronic kidney disease (HCC) (CMS/HCC) Abnormal renal ultrasound Primary hypertension (CMS/HCC)- Primary Unspecified essential hypertension Stage 3a chronic kidney disease (HCC) (CMS/HCC) Tobacco dependency Tobacco use disorder Bipolar 2 disorder ([facility]/HCC) Other bipolar disorders Allergic reaction to bee sting Screening for hyperlipidemia- Primary Screening for lipoid disorders Screening for diabetes mellitus Primary hypertension ([facility]/HCC) Unspecified essential hypertension Tobacco dependency Tobacco [...] disorder (CMS/HCC) Other bipolar disorders Primary hypertension ([facility]/HCC)- Primary Unspecified essential hypertension Stage 3a chronic kidney disease (HCC) ([facility]/HCC) Class 1 obesity due to excess calories without serious comorbidity with body mass index (BMI) of 33.0 to 33.9 in adult Screening for hyperlipidemia Screening for lipoid disorders Tobacco dependency Tobacco use disorder Bipolar 2 disorder ([facility]/HCC) Other bipolar disorders Migraine without aura and without status migrainosus, not intractable ([facility]/HCC) Back spasm Other symptoms referable to back documented [facility]* Diagnosis Onset Date Resolution Status Admit Date Chronic kidney disease, stage 3b acuteFebruary 2024 3:52pmCigarette smokeracuteFebruary 2024 3:52pm Hypertensive nephropathyacuteFebruary 2024 3:52pmHypomagnesemiaacute February 2024 3:52pmLesion of left timbi-[place] shoshone kidneyacuteFebruary 2024 3:52pm [facility] Work Phone: Evaluation note* Diagnosis Onset Date Resolution Status Admit Date Chronic kidney disease, stage 3b acuteJune 2024 3:51pmCigarette smokeracuteJune 2024 3:51pm Hypertensive nephropathyacuteJun2024 3:51pmHypomagnesemiaacuteJune 2024 3:51pmLesion of left timbi-[place] shosh[place] kidneyacuteJune 2024 3:51pm [facility] Work Phone: Evaluation note* Diagnosis Onset Date Resolution Status Admit Date Asthma acuteOctober 2024 4:46pmChronic kidney disease, stage 3bacuteOctober 2024 4:46pmEssential hypertensionacuteOctober 2024 4:46pmFormer smoker acuteOctober 2024 4:46pmMigraineacuteOctober 2024 4:46pm [facility] Work Phone: Reason for referral (narrative)No reason for referral information availableFirelands Regional Medical Center Work Phone: Summary Purpose Family History Relationship [...] stage 3b Hypertensive nephropathy Lesion of left timbi-[place]osh[place] kidney Chief Complaint RENAL 3 MONTH F/UReason for VisitChronic kidney disease, stage 3b Hypertensive nephropathy Hypomagnesemia Lesion of left timbi-[place]osh[place] kidney Chief Complaint Admit Date July 29, 2024 3 :50pm RENAL 4 MONTH F/U August 17, 2024 3 :52pm Reason for Visit Admit Date Chronic kidney disease, stage 3b 2024 3:52pm Cigarette smoker August 17, 2024 3 :52pm Hypertensive nephropathy August 17, 2 025 3:52pm Hypomagnesemia August 17, 2024 3 :52pm Lesion of left [place]osh[place] kidney August 3:52pm Chief Complaint Admit Date October 22, 2024 3:0 8pm RENAL 4 MONTHS December 21, 2024 3:51 pm Reason for Visit Admit Date Chronic kidney disease, stage 3b December 212024 3:51pm Cigarette smoker December 21, 2024 3:51 pm Hypertensive nephropathy December 21, 2024 3:51pm Hypomagnesemia December 21, 2024 3:51 pm Lesion of left timbi-[place]osh[place] kidney December 21, 2024 3:51pm Chief Complaint [...] section and content) DATE CREATED AUTHOR 08/08/2021 [facility] DATE CREATED AUTHOR AUTHOR'S ORGANIZ ATION 08/17/2022 [facility] DATE CREATED AUTHOR AUTHOR'S ORGANIZ ATION 11/27/2022 [facility] DATE CREATED AUTHOR AUTHOR'S ORGANIZ ATION 05/03/2025 [facility] EPIC REASON FOR VISIT (unrecogniz ed section and content) ReasonCommentsWell Women VisitReasonCommentsFollow-upReasonCommentsHypertension ReasonCommentsMed RefillReasonCommentsGynecologic Exam Care Teams (unrecognized sec tion and content) Team MemberRelationshipSpecialtyStart DateEnd Date Shaikh Hernandes MD [address] [place] [address] PCP - GeneralInternal Medicine08/11/23 Margarette Estevez NP [address] [place] [address] Nurse PractitionerFaokly Rsxrsods38/13/23 Team Status: Active Member Role Status Dates Ethan Licona DO Primary Care Provider Active Team Status: Active Member Role Status Dates Chinmay Manning MD Attending Provider Active Start: September 25, 2023 Team Status: Inactive Member Role Status Dates Debby Dominguez MD Attending Provider Active Star t: December 09, 2023 End: December 08Lauren [facility] ProviderActiveStart: December 09, 2023 End: December 09, [...] Shaikh Hernandes MD [address] [place] [address] PCP - GeneralInternal Medicine08/11/23 Margarette Estevez NP [address] [place] [address] Nurse Pract[facility]erFl[facility]05/26/23Team MemberRelationshipSpecialtyStart DateEnd Date Shaikh Hernandes MD [address] [place] [address] PCP - GeneralInternal Medicine08/11/23 Margarette Estevez NP [address] [place] [address] Nurse PractitionerFl[facility] Hospital05/26/23Team MemberRelationshipSpecialtyStart DateEnd Date Shaikh Hernandes MD [address] [place] [address] [facility]08/11/23 Margarette Estevez NP [address] [place] [address] Nurse PractitionerFl[facility] Hospital05/26/23Te MemberRelationshipSpecialtyStart DateEnd Date Shaikh Hernandes MD [address] [place] [address] [facility]08/11/23 Shaikh Hernandes MD [address] [place] [address] PCP - [place] Avdohibauj42/1/24 Margarette Estevez NP [address] [place] [address] Nurse PractitionerFl[facility] River Hospital05/26/23Te MemberRelationshipSpecialtyStart DateEnd Date Shaikh Hernandes MD [address] [place] [address] PCP - GeneralInternal Medicine08/11/23 Margarette Estevez NP [address] [place] [address] Nurse PractitionerFl[facility]05/26/23Te MemberRelationshipSpecialtyStart DateEnd Date Shaikh Hernandes MD [address] [place] [address] PCP - [facility]08/11/23 Shaikh Hernandes MD [address] [place] [address] PCP - [place] Vigussajue15/1/24 Margarette Estevez NP [address] [place] [address] Nurse PractitionerFl[facility]05/26/23Te MemberRelationshipSpecialtyStart DateEnd Date Shaikh Hernandes MD [address] [place] [address] [facility]08/11/23 Shaikh Hernandes MD [address] [place] [address] PCP - [facility]04/13/24 Margarette Estevez NP [address] [place] [address] Nurse PractitionerFl[facility]05/26/23Team MemberRelationshipSpecialtyStart DateEnd Date Shaikh Hernandes MD [address] [place] [address] PCP - [facility]08/11/23 Margarette Estevez NP [address] [place] [address] Nurse PractitionerFl[facility]05/26/23 Team Status: Active Member Role Status Dates NIKI MalloyC Primary Care Provider Ac tive Team Status: Active Member Role Status Dates Chinmay Manning MD Attending Provider Active Start: July 29, 2024 Team Status: Active Member Role Status Dates Ethna Licona DO Primary Care Provider Active Start: August 07, 2024 Debby Dominguez MDAttbowen ProviderActiveStart: August 07, 2024 Team Status: Inactive Member Role Status Dates Debby Dominguez MD Attending Provider Active Star t: August 17, 2024 End: August 17amie Garza NP-[facility] Care ProviderActive Start: August 17, 2024 End: August 17, 2024Team MemberRelationshipSpecialtyStart DateEnd Date Shaikh Hernandes MD [address] [place] [address] PCP - GeneralInternal Medicine08/11/23 Shaikh Hernandes MD [address] [place] [address] PCP - [place] Yvynysfwim56/1/24 Margarette Estevez NP [address] [place] [phone] [facility]05/26/23Team MemberRelationshipSpecialtyStart DateEnd Date Shaikh Hernandes MD [address] [place] [phone] [facility]08/11/23 Shaikh Hernandes MD [address] [place] [phone] PCP - [facility]04/13/24 Margarette Estevez NP [address] [place] [id number] [facility]05/26/23 Team Status: Active Member Role Status Dates Margarette Estevez Primary Care Provider Active Team Status: Active Member Role Status Dates Chinmay Manning MD Attending Provider Active Start: October 22, 2024 Team Status: Active Member Role Status Dates Rosita Garza NP-Janice Primary Care Provider Ac tive Start: December 14, 2024 Debby Dominguez MDAttending ProviderActiveStart: December 14, 2024 Team Status: Inactive Member Role Status Dates Debby Dominguez MD Attending Provider Active Star t: December 21, 2024 End: December 21, 2024Lisa Murphy [facility] [place] ProviderActiveStart: December 21, 2024 End: December 21, 2024Team MemberRelationshipSpecialtyStart DateEnd Date Shaikh Hernandes MD [address] [place] [address] PCP - GeneralInternal Medicine08/11/23 Margarette Estevez NP [address] [place] [id number] [facility]Fl[facility]05/26/23Team MemberRelationshipSpecialtyStart DateEnd Date Shaikh Hernandes MD [address] [place] [phone] PCP - GeneralInternal Medicine08/11/23 Margarette Estevez NP [address] [place] [id number] [facility]Fl[facility]05/26/23Team MemberRelationshipSpecialtyStart DateEnd Date Shaikh Hernandes MD [address] [place] [address] PCP - GeneralInternal Medicine08/11/23 Margarette Estevez NP [address] [place] [address] Nurse Pract[facility]Fl[facility]05/26/23Team MemberRelationshipSpecialtyStart DateEnd Date Shaikh Hernandes MD [address] [place] [address] [facility] - [facility]08/11/23 Margarette Estevez NP [address] [place] [id number] Nurse Pract[facility]Fl[facility]05/26/23Team MemberRelationshipSpecialtyStart DateEnd Date Shaikh Hernandes MD [address] [place] [phone] PCP - [facility]08/11/23 Margarette Estevez NP [address] [place] [address] Nurse Pract[facility]Fl[facility]05/26/23Team MemberRelationshipSpecialtyStart DateEnd Date Shaikh Hernandes MD [address] [place] [phone] PCP - [facility]08/11/23 Margarette Estevez NP [address] [place] [phone] [facility]05/26/23 Team Status: Active Member Role Status Dates NANCY Chavira Primary Care Provider Active Team Status: Inactive Member Role Status Dates Margarette Estevez NP-Janice Primary Care Provider Active Start: April 25, 2025 End: April 25, 2025Margarette Estevez NP-[facility] ProviderActiveStart: April 25, 2025 End: April 25, 2025Team MemberRelationshipSpecialtyStart DateEnd Date Madhu Murphy MD PCP - GeneralFamily Medicine02/22/25 Margarette Estevez NP [facility] Biobjcqe67/13/23Team MemberRelationshipSpecialtyStart DateEnd Date Madhu Murphy MD PCP - GeneralFamily Medicine02/22/25 Margarette Estevez NP [facility] Caifdowj93/13/23Team MemberRelationshipSpecialtyStart DateEnd Date Madhu Murphy MD [facility]CP - [facility]Mer[facility]ly [facility]02/22/25 Margarette Estevez NP [facility]Fl[facility]05/26/23Team MemberRelationshipSpecialtyStart DateEnd Date Madhu Murphy MD PCP - GeneralFamily Fbciqcmi52/1/231 Shaikh Hernandes MD PCP - GeneralInternal Medicine Shaikh Hernandes MD [address] [place] [address] PCP - [place] Ggigpcwjim40/1/244 Madhu Murphy MD [address] [place] [phone] [facility]CP - [facility] Medicine02/22/25 Margarette Estevez, [employer] Nurse PractitionerFl[facility]05/26/23Team MemberRelationshipSpecialtyStart DateEnd Date Shaikh Hernandes MD PCP - GeneralInternal Medicine Shaikh Hernandes MD [address] [place] [phone] PCP - [place] Qknkdocwwa13/1/244 Madhu Murphy MD [address] [place] [phone] PCP - GeneralFl[facility]02/22/25 Margarette Estevez, [employer] Nurse PractitionerFl[facility]05/26/23Te MemberRelationshipSpecialtyStart DateEnd Date Shaikh Hernandes MD PCP - GeneralEn[facility]nal Medicine Shaikh Hernandes MD [address] [place] [phone] PCP - [place] Olqzgntgvf14/1/244 Madhu Murphy MD [address] [place] [address] PCP - [facility] Medicine02/22/25 Margarette Estevez NP Nurse PractitionerFawalter e. fern[facility] developmental center Tfamkqnj84/13/23 Goals (unrecognized section and content) Goals may [...] BE BASED ON THE PRIMARY CLINICAL RECORDS. [employer] provides no warranty or guarantee of the accuracy or completeness of information in this document.
--- OUTSIDE RECORDS SUMMARY | 2025-06-21 10:45 | XMS_ITS | CCD ---
Author Organization [facility] Care Team Providers Care Rust Proofer Name Role Phone ELIANE BEEBE Admitting Unavailable ELIANE BEEBE Attending Unavailable SANDRA LIZARRAGA Consulting Unavailable Justin Che II Unavailable Christiana Lazaro Unavailable Bahman Meneses Unavailable [phone] Ethan Licona Primary Care Unavailable Kathryn Parks [...] MD Unavailable Chinmay Manning MD Attending Provider [phone] Chinmay Manning MD Attending Provider Herb SANDOVAL-Margarette Camacho Primary Care Provider [phone] Herb SANDOVAL-C, Margarette J Attending Provider Margarette Estevez NP Unavailable Madhu Murphy MD Primary Care Provider MARGARETTE ESTEVEZ Attending Unavailable MARGARETTE ESTEVEZ Attending Unavailable ROSITA GARZA Attending Unavailabl e MARGARETTE ESTEVEZ Attending Unavailable DANYA NAJERA Attending Unavailable Madhu Murphy MD Primary Care Provider Shaikh Hernandes MD Primary Care Provider Cecilio WALKER, Unavailable Madhu Murphy MD Primary Care Provider [phone] Allergies Allergy ClassificationReported Allergen(s)Allergy TypeDate of OnsetReaction(s) FacilityAnti-Epileptic Agents (1 source)gabapentinDrug Inexhtq63-35-1841ArnetksebOhiohealth Dublin Methodist Hospital Dihydrofolate Reductase Inhibitors (antibiotic) (1 source)TrimethoprimDrug Crhnodg23-82-9323ZyztgJiydmyjiqPeoples HospitalOpioid Agonists (2 sources)HYDROmorphoneDrug Kerzrvc90-11-1369cvgn, HivesOhiohealth Dublin Methodist Hospitalpeanut allergenic extract (1 source)peanut allergenic extractDrug Uvzuzpf52-80-2500NocwLgbknjyjnTriHealth McCullough-Hyde Memorial HospitalPollen (1 source)Bee pollenSubstance Ufhrdcq48-60-3472VcvvweadipfMkiuomxyf Regional Medical Centerpregabalin (1 source)pregabalinDrug Mivpzum62-34-9645Vamuwkf ReactionOhiohealth Dublin Methodist HospitalPromethazine (1 source)PromethazineDrug Fqbbcuh11-64-0342VdgdHvkwihfyvTriHealth McCullough-Hyde Memorial HospitalQuinolones (antibiotic) (1 source)CiprofloxacinDrug Pcislpp54-34-7761dkpqsjw, nauseaTrumbull Memorial Hospitalulfonamides (antibiotic) (1 source)SulfamethoxazoleDrug Etkllox89-36-8889XzyakCtokbgmmhPeoples HospitalUnclassified (1 source)codeine, depakote, bactrium, sAllergy to qecsyshpi45-95-8502DywcexmpiOhiohealth Dublin Methodist HospitalUnclassified (5 sources)walnutsAllergy to cghawyczx03-37-8167VfjamuveqsdAnmncqsac Regional Medical CenterValproate (1 source)ValproateDrug Jsoogro99-74-3037bywrnft, nauseaOhiohealth Dublin Methodist Hospital (1 source)tree nut, unspecified; Translations: [TREE NUTS]Propensity to adverse reactions to drug (disorder)72-59-1569[facility] (1 source)BEE VENOM PROTEIN (HONEY BEE); Translations: [BEE VENOM PROTEIN (HONEY BEE)]Propensity to adverse reactions to drug (disorder)90-50-4061RdyaSum[facility] (20 sources)CiprofloxacinDrug Obhebwk18-65-5390LsylaAfebl Coast IActive Other (11 sources)gabapentinDrug Gaudcjg87-82-7543Fivbobs, Unknown ReactionOhiohealth Dublin Methodist Hospital (20 sources)HYDROmorphoneDrug Bkqinhk55-65-3215Jjyzxtf, [facility] IActive Other (11 sources)pregabalinDrug Ryoyftb47-55-8635Udelsmc, Unknown ReactionOhiohealth Dublin Methodist HospitalComment on above:pain worse (7 sources)codeine, depakote, bactrium, sulfa, bees walnutsPropensity to adverse reactionsEleanor Slater Hospital IActive Other (1 source)Acetaminophen / HYDROcodoneDrug Nzgxxrq95-95-5056Yfm [facility] Repository (1 source)bee venomDrug allergy (disorder)85-73-8313Byg [facility] Repository (5 sources)CodeineDrug Jmicatn59-79-1544JlefmKph [facility] Repository (1 source)HYDROmorphoneDrug Kgfkath62-04-9704JaaMiami Valley Hospital Repository (1 source)Sulfamethoxazole / TrimethoprimDrug Rapmkpm08-50-9484Hdd [facility] Repository (1 source)ValproateDrug Pvslizs21-80-0864TpoMiami Valley Hospital Repository (1 source)Misc-Food; Translations: [Misc-Food]Food allergy (disorder)11-02-2014 [facility] Repository (20 sources)Acetaminophen / HYDROcodoneDrug Jnbdhpi60-91-9600UK[facility] (20 sources)Bee pollenPropensity to adverse glgjqufih36-87-0832VtaqcdjwmmqVETA Healthcare (20 sources)CodeineDrug Gkwsaho83-33-0751AZYL [facility] (20 sources)ErythromycinDrug Izdushg58-64-9222WTVG [facility] (20 sources)Honey bee venomPropensity to adverse mkfehkmdy19-46-9953DupwgFVDM Healthcare Work Phone: (20 sources)PregabalinPropensity to adverse pixqabtba78-13-6092PFCN [facility] (20 sources)PromethazineDrug Cgnipug31-85-5122ByuwNCEK Healthcare (20 sources)SulfamethoxazoleAllergy to snqcamyid98-56-6124GnvcjWDJN Healthcare (20 sources)Sulfamethoxazole / TrimethoprimDrug Xlzwftd06-61-6783VAWD [facility] (20 sources)ValproateDrug Jjxvfiv00-91-3126DQZY Healthcare (9 sources)[place] FlavorPropensity to adverse gnqfgpoak62-60-5327WWSY Healthcare (20 sources)OtherPropensity to adverse mymzrnanb48-50-7570Swueg, Shortness of breath, SwellingCox Walnut Lawn (4 sources)peanut allergenic extractDrug Liyhkke10-15-8345AesjXzumqddjuOhiohealth Dublin Methodist Hospital (4 sources)TrimethoprimDrug Pqfplul50-60-2862AjgmcAasznkrpkOhiohealth Dublin Methodist Hospital (4 sources)ValproateDrug Oitpakd18-61-7885afefxni, nauseaOhiohealth Dublin Methodist Hospital (20 sources)[place] Flavoring Agent (Non-Screening)Propensity to adverse nbgsyezay40-09-3508CANL Healthcare Medications Current Medications MedicationDrug Class(es)DatesSig (Normalized)Sig (Original)alosetron 0.5 mg oral tablet (1 source)Serotonin-3 Receptor AntagonistStart: 78-30-2823ewim 1 tablet by mouth every twenty-four hoursAlosetron HCl 0.5 MG 1 tablet Orally daily for 30 days Jul, ActiveBiotin (3 sources)Biotin ActiveCalcium & Magnesium Carbonates (3 sources)Calcium & Magnesium Carbonates ActiveCentrum Silver 50+Women (1 source)Centrum Silver 50+Women Activecyclobenzaprine hydrochloride 10 mg oral tablet (20 sources)Muscle RelaxantStart: 87-19-0269naau 1 tablet by mouth once daily at bedtime as neededCyclobenzaprine 10 mg tablet Active 10 MG PO Daily at bedtime as needed April 25, 2025 5:26pm Complies with drug therapyStart: 03-24-2024 End: 47-31-9923zmpy 0.5 tablet by mouth at bedtimecyclobenzaprine (Flexeril) 10 MG tablet Indications: Back spasm Take 0.5 tablets (5 mg) by mouth atbedtime 30 tablet 3 09/22/2024 ActiveStart: 12-09-2023 End: 30-83-0052qwzp 1 tablet by mouth three times daily as neededCyclobenzaprine 10 mg tablet Discontinued 10 MG PO Three times daily as needed December 09, 2023 12:00am April 25, 2025 5:27pm End: 04-95-0332sthy 5 mg by mouth three times daily as needed for muscle spasms cyclobenzaprine (Flexeril) 10 MG tablet Take 5 mg by mouth 3 (three) times a day as needed for muscle spasms. 03/24/2024 Discontinued (Dose adjustment) Elderberry preparation (3 sources)Elderberry Rtxtufbpa134568 0.3 ml EPINEPHrine 1 mg/ml auto-injector (20 sources)alpha-Adrenergic Agonist, beta-Adrenergic Agonist, Catecholamine Start: 88-69-1206Ofyjwlmzilz 0.3 mg/0.3 mL auto-injector Active 0.3 ML [...] mg oral tablet (20 sources)EstrogenStart: 12-09-2023 End: 58-82-0254eqlo 1 tablet by mouth once dailyestradiol (Estrace) 1 MG tablet Indications: Hormone imbalance Take 1 tablet (1 mg) by mouth Daily 90 tablet 3 05/02/2025 04/27/2026 Activelosartan potassium 100 mg oral tablet (20 sources)Angiotensin 2 Receptor BlockerStart: 08-11-2023 End: 19-89-4958yyos 1 tablet by mouth once dailylosartan (Cozaar) 100 MG tablet Indications: Primary hypertension Take 1 tablet (100 mg) by mouth Daily 90 tablet 1 02/21/2025 05/22/2025 ActiveMagnesium (3 sources)Magnesium Activemagnesium oxide 400 mg oral tablet (20 sources)Start: 72-58-4111gsel 1 tablet by mouth once dailyMagnesium Oxide 400 mg (241.3 mg magnesium) tablet Active 0 .ROUTE .COMPLEX February 16, 2025 10:18am TAKE 1 TABLETBY MOUTH EVERY DAY Complies with drug therapyStart: 08-24-2024 End: 89-22-4740jqwl 1 tablet by mouth once dailyMagnesium Oxide 400 mg (241.3 mg magnesium) tablet Discontinued 0 .ROUTE .COMPLEX August 9:56am February 16, 2025 10:18am TAKE 1 TABLETBY MOUTH EVERY DAYStart: 86-51-5468uizy 1 tablet by mouth once dailyMagnesium Oxide 400 mg (241.3 mg magnesium) tablet Active 0 .ROUTE .COMPLEX August 24, 2024 9:56am TAKE 1 TABLETBY MOUTH EVERY DAYStart: 03-17-2024 End: 84-88-2242qrej 1 tablet by mouth once dailymagnesium oxide (Mag-Ox) 400 (240 Mg) MG tablet Take 400 mg by mouth Daily 03/17/2024 ActiveMulti For Her 50+ (3 sources)Multi For Her 50+ Activemupirocin 0.02 mg/mg topical ointment (1 source)RNA Synthetase Inhibitor AntibacterialStart: 29-74-3853Sjztrpplh 2 % 1 application Externally Twice a day for 5 day(s) Jun, Activeomeprazole 20 mg delayed release oral capsule (20 sources)Proton Pump InhibitorStart: 84-73-0411pbgm 1 capsule by mouth once dailyOmeprazole 20 mg capsule,delayed release(DR/EC) Active 20 MG PO Daily December 09, 2023 12:00am Complies with drug therapyondansetron 4 mg disintegrating oral tablet (1 source)Serotonin-3 Receptor AntagonistStart: 01-13-2025 End: 95-83-4743umgx 1 tablet by mouth every eight hours for nauseaondansetron ODT (Zofran-ODT) 4 MG disintegrating tablet Indications: Nausea and vomiting, unspecified vomiting type Take 1 tablet (4 mg) by mouth every 8 (eight) hours if needed for vomiting or nausea for up to 5 days 15 tablet 01/13/2025 01/18/2025 Jyhqal67 hr paliperidone 3 mg extended release oral tablet (20 sources)Atypical AntipsychoticStart: 12-09-2023 End: 16-04-3116mctv 1 tablet by mouth once daily in [...] hydrochloride 10 mg/ml rectal foam (1 source)Start: 56-22-8310Unoormysdw 1 % as directed Rectal PRN for 30 day(s) Jun, Activetopiramate 100 mg oral tablet (20 sources)Start: 09-23-2017 End: 64-65-6405dvec 1 tablet by mouth once dailytopiramate (Topamax) [...] mg oral tablet (20 sources)Serotonin Reuptake InhibitorStart: 52-71-3771owsv 2 tablets by mouth once daily at bedtimeTrazodone 100 mg tablet Active 200 MG PO Daily at bedtime December 09, 2023 12:00am Complies with drugtherapyStart: 43-63-6693hkjd 200 mg by mouth once daily at bedtimeTrazodone Active 200 MG PO Daily at bedtime December 09, 2023 12:00amStart: 09-23-2017 End: 02-40-8056Abbqzpkkk 150 mg tablet Discontinued 50 MG PO Bedtime September 23, 2017 12:00am December 09, 2023 3:28pmStart: 09-23-2017 End: 89-70-4277chlo 50 mg by mouth at bedtimeTrazodone Discontinued 50 MG PO Bedtime September 23, 2017 12:00am December 09, 2023 3:28pmtake 1-2 tablets by mouth once dailytraZODone HCl 50 MG 1-2 TABLETS Orally Once a day ActiveTurmeric extract (3 sources)Turmeric Activevarenicline 1 mg oral tablet (19 sources)Partial Cholinergic Nicotinic AgonistStart: 12-22-2024 End: 95-10-7433bvtu 1 tablet by mouth in the morningvarenicline (Chantix) 1 MG tablet Indications: Cigarette nicotine dependence without complication Take 1 tablet (1 mg) by mouth in the morning and 1 tablet (1 mg) before bedtime. Take with full glassof water. 60 tablet 2 02/21/2025 ActiveStart: 12-22-2024 End: 34-81-7018Pafcbxrqsuo Tartrate, Starter, 0.5 MG X 11 & 1 MG X 42 tablet therapy pack Indications: Cigarette nicotine dependence without complication Take 1 Package by mouth Daily Use as directed 42 each 12/22/2024 02/09/2025 Discontinued (Therapy completed)Start: 21-39-8941Gjcgovcyfwi Tartrate, Starter, 0.5 MG X 11 & 1 MG X 42 tablet therapy pack Indications: Cigarette nicotine dependence without complication Take 1 Package by mouth Daily Use as directed 42 each 12/22/2024 Active Completed/Discontinued Medications MedicationDrug Class(es)DatesSig (Normalized)Sig (Original)alendronic acid 70 mg / cholecalciferol 5600 unt oral tablet (20 sources)Bisphosphonate, Vitamin DStart: 04-22-2025 End: 76-73-2752ngin 1 tablet by mouth every weekAlendronate-Vitamin D3 70 mg- 5,600 unit tablet Discontinued 1 TAB PO every week April 222:00am April 25, 2025 5:26pmStart: 05-27-2024 End: 21-28-8394xaiu 70-5600 tablets by mouth in the morningalendronate- [...] mg oral tablet (7 sources)Start: 07-13-2020 End: 38-19-4473Mqcdhwymn 10 mg tablet Discontinued 10 MG PO As Directed July 13, 2020 1:00am December 09, 2023 3:31pmBuSpar Activetake 1 tablet by mouth twice dailyBuSpar 10 MG 1 tablet Orally Twice a day Activecitalopram 20 mg oral tablet (7 sources)Serotonin Reuptake InhibitorStart: 07-13-2020 End: 17-46-9542Clfhclodlg 20 mg tablet Discontinued 20 MG PO As Directed July 13, 2020 1:00December 0843:31pmCitalopram Hydrobromide Active dicyclomine hydrochloride 10 mg oral capsule (12 sources)AnticholinergicStart: 08-16-2019 End: 75-86-2379bqvw 1 capsule by mouth three times dailyDicyclomine 10 mg Capsule Discontinued 10 MG PO Three times daily August 16, 2019 1:00am December 09, 2023 3:31pmStart: 28-08-3545fffn 1 tablet by mouth every twenty-four hours Dicyclomine HCl 20 mg 1 tablet Orally once a day for 30 days Apr, Active take 1 tablet by mouth every eight hoursDicyclomine HCl 20 MG 1 tablet Orally Three times a day Active1 ml erenumab-aooe 70 mg/ml auto-injector (6 sources)Start: 07-13-2020 End: 92-26-4854Zsaugzgz-Aooe (Aimovig Autoinjector) 70 mg/mL auto-injector Discontinued 70 MG SUBCUT As Directed July 13, 2020 1:00am December 09, 2023 3:31pminject 70 mg by subcutaneous injection every monthAimovig 70 MG/ML as directed Subcutaneous ONCE A MONTH Activeestrogens, conjugated (mcc) 0.625 mg oral tablet (17 sources)EstrogenStart: 07-13-2020 End: 90-63-3999wfev 1 tablet by mouth once dailyConjugated Estrogens (Premarin) 0.625 mg tablet Discontinued 0.625 MG PO Daily July 13, 2020 1:00am December 09, 2023 3:31pmStart: 09-23-2017 End: 13-74-8534wltr 1 tablet by mouth once dailyConjugated Estrogens 0.625 mg tablet Discontinued 0.625 MG PO Daily September 23, 2017 12:00am August 16, 2019 7:38am24 hr nicotine 0.292 mg/hr transdermal system (20 sources)Cholinergic Nicotinic AgonistStart: 06-23-2024 End: 43-36-8898ezazredz (Nicoderm, Step 3) 7 MG/24HR patch Indications: Tobacco dependency Place 1 patch over 24 hours on the skin 1 (one) time each day at the same time 14 patch 06/23/2024 02/09/2025 Discontinued (Therapy completed)Start: 03-24-2024 End: 06-53-2585eegrpyyw polacrilex ([facility] Nicotine Polacrilex) 4 MG lozenge Indications: Tobacco dependency Dissolve1 lozenge (4 mg) in the mouth every 2 (two) hours if needed for smoking cessation 100 lozenge 03/24/2024 06/23/2024 Discontinued (Med list cleanup)Start: 21-52-1086Pmywroun Active TRANSDERML March 17, 2024 12:00amStart: 02-12-2024 End: 31-61-8471siqxl 1 dose transdermal route every twenty-four hoursNicotine 21 mg/24 hr patch 24 hour Discontinued TRANSDERML March 17, 2024 12:00am April 25, 2025 5:26pmStart: 02-12-2024 End: 61-03-8940symqx 1 dose transdermal route every twenty-four hoursnicotine (Nicoderm CQ) 14 MG/24HR patch Indications: Tobacco dependency Place 1 patch over 24 hourson the skin 1 (one) time each day at the same time Use after patient has used 21 mg dose. 14 patch 06/23/2024 09/22/2024 Discontinued (Therapy completed)sertraline 100 mg oral tablet (5 sources)Serotonin Reuptake InhibitorStart: 09-23-2017 End: 43-12-6211whpu 1 tablet by mouth once dailySertraline 100 mg tablet Discontinued 100 MG PO Daily September 23, 2017 12:00am July 13, 2020 1:21pm sucralfate 1000 mg oral tablet (9 sources)Aluminum ComplexStart: 09-23-2017 End: 69-13-3602vona 1 tablet by mouth four times dailySucralfate 1 gram tablet Discontinued 1 TAB PO Four times daily September 23, 2017 12:00am December 09, 2023 3:31pmStart: 09-23-2017 End: 62-99-9500rges 1 tablet by mouth four times dailySucralfate Discontinued 1 TAB PO Four times daily September 23, 2017 12:00am December 09, 2023 3:31pmCarafate Activetake 1 capsule by mouth twice dailySucralfate 1 GM 1 capsule Oral twice times a day for 30 days ActivetiZANidine 4 mg oral tablet (6 sources)Central alpha-2 Adrenergic AgonistStart: 07-13-2020 End: 39-97-0317Mnfrtqyllq 4 mg tablet Discontinued 4 MG PO As Directed July 13, 2020 1:00am December 09, 2023 3:31pmtiZANidine HCl Active Problems Active Problems Problem ClassificationProblemDateDocumented DateEpisodic/ChronicAbdominal pain (14 sources)Right upper quadrant pain; Translations: [Right upper quadrant pain] EpisodicAnal and rectal conditions (7 sources)Rectal pain; Translations: [Other specified diseases of anus and rectum]EpisodicAnxiety disorders (20 sources)Anxiety; Translations: [Anxiety disorder, unspecified]Onset: 844594-29-8659MrxnajjWbdmsv (6 sources)Asthma; Translations: [Unspecified asthma, uncomplicated]10-10-2021 ChronicChronic kidney disease (20 sources)Chronic kidney disease stage 2; Translations: [Chronic kidney disease, stage 2 (mild)]Onset: 06-16-2023 Resolved: 702010-02-4953CljscctRjnxadjwj of lipid metabolism (20 sources)Mixed hyperlipidemia; Translations: [Mixed hyperlipidemia]Onset: 468858-98-6441VbjjypaR Codes: Fall (5 sources)Fall (on) (from) other stairs and steps, initial encounter; Translations: [Fall down stairs]94-42-6009InnosiwsRugokqvnam disorders (11 sources)Gastroesophageal reflux disease; Translations: [Gastro-esophageal reflux disease without esophagitis]Onset: 10-16-2021 Resolved: 75-53-0439WlniswxPjdbjwlzo hypertension (20 sources)Essential hypertension; Translations: [Essential (primary) hypertension]Onset: 490566-64-5939DvcknrbOhjiearwj and duodenitis (7 sources)Gastritis; Translations: [Gastritis, unspecified, without bleeding] EpisodicGastrointestinal hemorrhage (20 sources)Dark stools; Translations: [Melena]30-32-7295DpyrmgseVyanhgoj; including migraine (20 sources)Migraine without aura, not refractory ; Translations: [Migraine without aura, not intractable, without status migrainosus]Onset: 06-16-2023 74-62-2104SbgbrtuVltqqbgl; including migraine (7 sources)Headache; Translations: [Headache]EpisodicHemorrhoids (7 sources)Hemorrhoids; Translations: [Unspecified hemorrhoids]Episodic Hypertension with complications and secondary hypertension (9 sources)Hypertensive renal disease; Translations: [Hypertensive chronic kidney disease with stage 1 throughstage 4 chronic kidney disease, or unspecified chronic kidney disease]60-15-9506FyhhywsGufsbhtvep infection (14 sources)Clostridial enteric disease; Translations: [Enterocolitis due to Clostridium difficile, not specified as recurrent]EpisodicMalaise and fatigue (14 sources)Fatigue; Translations: [Other fatigue]EpisodicMood disorders (20 sources)Bipolar II disorder; Translations: [Bipolar II disorder]Onset: 11-17-2023 Resolved: 609352-61-5740HvqwslvLecmqohnmkgew gastroenteritis (14 sources)Microscopic colitis; Translations: [Other specified noninfective gastroenteritis and colitis]EpisodicNonspecific chest pain (5 sources)Atypical chest pain; Translations: [Other chest pain]10-10-2021 EpisodicOther and unspecified benign neoplasm (7 sources)Lipoma (clinical); Translations: [Benign lipomatous neoplasm, unspecified]EpisodicOther bone disease and musculoskeletal deformities (1 source)Osteopenia; Translations: [Other specified disorders of bone density and structure, unspecified site]45-65-0582RqvflbabEicmd diseases of kidney and ureters (5 sources)Kidney lesion; Translations: [Disorder of kidney and ureter, unspecified]71-40-9973SerzitmgZgyny diseases of kidney and ureters (4 sources)Disorder of kidney and ureter, unspecified; Translations: [Unspecified disorder of kidney and ureter]48-70-5850CfduqkopRhmye endocrine disorders (4 sources)Disorder of endocrine system; Translations: [Endocrine disorder, unspecified]32-11-3634PmphuglgImyvf gastrointestinal disorders (7 sources)Irritable bowel syndrome with [...] endocrine; and metabolic disorders (4 sources)Hypomagnesemia; Translations: [Hypomagnesemia]64-63-0432WotdslxRizcm nutritional; endocrine; and metabolic disorders (3 sources)Hypomagnesemia; Translations: [Disorders of magnesium metabolism] 48-06-1465RohmnxhXsyof nutritional; endocrine; and metabolic disorders (7 sources)Weight loss; Translations: [Abnormal weight loss]EpisodicOther nutritional; endocrine; and metabolic disorders (13 sources)Body mass index 25-29 - overweight; Translations: [Overweight]Onset: 044791-02-7499ZtkdujopItnmj skin disorders (7 sources)Rash and other nonspecific skin eruption; Translations: [Rash] EpisodicRegional enteritis and ulcerative colitis (7 sources)Pseudopolyposis of colon; Translations: [Inflammatory polyps of colon without complications]ChronicResidual codes; unclassified (2 sources)Postmenopausal state; Translations: [Asymptomatic menopausal state] 57-09-4153SrvtxjmvUcubelhcl and history of mental health and substance abuse codes (2 sources)Ex-smoker; Translations: [Personal history of nicotine dependence] 44-04-2568JfgwicpvXamuuztsubw; intervertebral disc disorders; other back problems (20 sources)Spasm of back muscles; Translations: [Muscle spasm of back] 01-22-2891YmsiaykgUsncbgb and strains (6 sources)Sprain of other ligament of left ankle, initial encounter; Translations: [Sprain of left ankle]Onset: 07-04-2021 Resolved: 16-15-5925IdtnioudUmquxwiur-related disorders (20 sources)Tobacco dependence syndrome; Translations: [Nicotine dependence, unspecified, uncomplicated]Onset: 06-16-2023 Resolved: 222094-39-8184YfcjujvGvzhkbvucmx injury; contusion (10 sources)Contusion of lower back; Translations: [Contusion of lower back and pelvis, initial encounter]53-04-9546XflcgdwyCpghedxystix (3 sources)LOW BACK PAIN, UNSPECIFIED; Translations: [LOW BACK PAIN, UNSPECIFIED]Onset: 06-12-2022 Past or Other Problems Problem ClassificationProblemDateDocumented DateEpisodic/ChronicAllergic reactions (20 sources)Allergy to nut; Translations: [Allergy to other foods]Onset: 488266-37-8027QnjtyzwyNqxcaj and vomiting (20 sources)Vomiting; Translations: [Vomiting, unspecified]Onset: 01-13-2025 84-36-2110WujfvpdaUizm wounds of extremities (1 source)Laceration without foreign body of left middle finger without damage to nail, initial encounterOnset: 07-12-2021 Resolved: 13-10-5427DccvlklmUhwdx circulatory disease (4 sources)Other specified symptoms and signs involving the circulatory and respiratory systems; Translations:[OTH SPEC SX SIGNS INVLV CIRC RS]Onset: 70-91-1612PkwzodttFcmzp gastrointestinal disorders (2 sources)Diarrhea, unspecifiedOnset: 10-16-2021 Resolved: 75-96-6657GestmvegKlvjk nutritional; endocrine; and metabolic disorders (20 sources)Obesity caused by energy imbalance; Translations: [Class 1 obesity due to excess calories without serious comorbidity with body mass index (BMI) of 33.0 to 33.9 in adult]Onset: 02-12-2024 Resolved: 497313-22-8949AonfupuPelmg screening for suspected conditions (not mental disorders or infectious disease) (20 sources)Ultrasonography of kidney abnormal; Translations: [Abnormal radiologic findings on diagnostic imaging of unspecified kidney]Onset: 08-18-2023 Resolved: 153496-74-3433JdikjqpdDapwbsavusje (1 source)LOW BACK PAIN, UNSPECIFIED; Translations: [LOW BACK PAIN, UNSPECIFIED] Onset: 06-07-2022 Results Test NameValueInterpretationReference RangeFacilityMM TOMOSYNTHESIS SCREENING BI on 18-[place] [address] Mammography Report Signed Patient: МАРИЯ LAY MR#: [id number] : 1965 Acct:[id number] Age/Sex: 59 / F ADM Date: 05/20/25 Loc: MAMMO Attending Dr: Danya Najera Ordering Physician: Danya Najera Results: Date of Service: 05/20/25 Follow Up: Procedure(s): MM tomosynthesis screening BI Accession Number(s): [id number] cc: Margarette Estevez NP; Danya Najera Patient Name: МАРИЯ LAY MR#: [id number] : 1965 Exam Date: 05/20/2025 Ordering Doctor: [...] uterine cancer at age 27. LOCATION: [facility] BREAST COMPOSITION: There are scattered areas [...] Signed By: 05/20/25 1335 DD/ 1334 TD/TT: Automat Car Attendant:TBHRadiology, Radiologist, MD - 05/20/2025 [place] [address] Mammography Report Signed Patient: МАРИЯ LAY MR#: [id number] : 1965 Acct:[id number] Age/Sex: 59 / F ADM Date: 05/20/25 Loc: MAMMO Attending Dr: Danya Najera Ordering Physician: Danya Najera Results: Date of Service: 05/20/25 Follow Up: Procedure(s): MM tomosynthesis screening BI Accession Number(s): [id number] cc: Margarette Estevez NP; Danya Najera Patient Name: МАРИЯ LAY MR#: [id number] : 1965 Exam Date: 05/20/2025 Ordering Doctor: [...] uterine cancer at age 27. LOCATION: The [facility] BREAST COMPOSITION: There are scattered areas [...] M.D. Signed By: 05/20/251334 DD/ 33 TD/TT: Automat Car Attendant: [facility] LawnRadiology Study observation (narrative)[facility] TOMOSYNTHESIS SCREENING BIOrdered By: Radiologist Radiology on 84-89-1264[facility] Work Phone: IGP,APTIMA HPV,AGE GDLNon 00-79-1789RPV LN ACOG TESTINGNote.[facility] HealthcareComment on above:TESTS RESULT FLAG UNITS REF RANGE LAB Clinician Provided Cytology Information Source.............Vagina No. of containers..01 ThinPrep Vial Age Algo ACOG Marisol... 30-65 01 FLAG LEGEND: L-Low Normal,H-High Normal,LL-Alert Low,HH-Alert High <-Panic Low,>-Panic High,A-Abnormal,AA-Critical Abnormal Performed at: 01 =G [address] [address] Coby Russell MD, HPV APTIMANegativeNegativeLAKEVIEW HOSPITAL HealthcareComment on above:This nucleic acid amplification test detects fourteen high- risk HPV types (16,18,31,33,35,39,45,51,52,56,58,59,66,68) without differentiation. Performed at: =G - [facility] [id number] Employee Relations Consultant: Coby Russell MD, Phone: [phone] Performed at: - [facility] [id number] Employee Relations Consultant: Coby Russell MD, Phone: [phone] IGP, APTIMA HPV, RFX 16/18,45Note.NOMS [facility] HospitalComment on above:TESTS RESULT FLAG UNITS REF RANGE LAB DIAGNOSIS: 02 NEGATIVE FOR INTRAEPITHELIAL LESION OR MALIGNANCY. Specimen adequacy: 02 Satisfactory for evaluation. Performed by: 02 Basia Newby, Supervisory Ground Layer (ASC) . 02 Note: Note 02 The [...] ThinPrep(R) pap test was interpreted using the Tune(R) Genius(TM) Cervical Algorithm whole slide imaging system. HPV Genotype Reflex Note 02 Criteria not met, HPV Genotype not performed. FLAG LEGEND: L-Low Normal,H-High Normal,LL-Alert Low,HH-Alert High <-Panic Low,>-Panic High,A-Abnormal,AA-Critical Abnormal Performed at: 02 WB [facility] [address] [place] [address] Coby Russell MD, SPATULA-ALONE VAGINA CLINISYNCNOKY HealthcareALL URINALYSISon 29-67-7144MOTPSKBSW URINENegative NEGATIVENOKY HealthcareBLOOD URINETRACE-INEGATIVENOMS HealthcareClarity (U)CLEAR CLEARNOMS HealthcareColor (U)YELLOWYELLOWNOMS HealthcareGLUCOSE URINE UANegative NEGATIVE mg/dLNOKY HealthcareKetones Ql (U)NegativeNEGATIVE mg/dLLAKEVIEW HOSPITAL Healthcare Leukocyte esterase Test strip Ql (U)NegativeNEGATIVENOMS HealthcareNITRITE URINE NegativeNEGATIVENOMS HealthcarepH (U)6.0 [pH]5.0 - 9.0NOMS HealthcarePROTEIN URINENegativeNEG/TRACE mg/dLNOKY HealthcareSPECIFIC GRAVITY URINE1.0151.005 - 1.025NOKY HealthcareUROBILINOGEN URINE0.2 EU/dL0.2 - 1.0 EU/dLCox Walnut Lawn Erythrocyte distribution width Auto (RBC) [Ratio]on 72-86-9681Qzztzzbobab distribution width (RBC) [Ratio]Erythrocyte distribution width [Ratio] by Automated count11.0-15.0[facility] Methodist HospitalEstimated glomerular filtration rate (GFR) non- Americanon 86-67-6383UDQ/1.73 sq M.predicted among non-blacks MDRD (S/P/Bld) [Vol rate/Area]Estimated glomerular filtration rate (GFR) non- AmericanLow>=60 mL/min/1.73m [address] [place] [address] CBC WITH PLATELET NO DIFFERENTIALon 78-37-3752Vrugoloytiq distribution width (RBC) [Ratio]12.5 %11.0 - 15.0 %[facility] HealthcareHematocrit (Bld) [Volume fraction]46.7 %36.0 - 48.0 %[facility] HealthcareHemoglobin (Bld) [Mass/Vol]15.7 g/dL12.0 - 16.0 g/dLCox Walnut LawnInterpretation and review of laboratory resultsAbnormalEllis Fischel Cancer Center (RBC) [Entitic mass]30.6 pg26.7 - 34.0 pgChildren's Mercy HospitalHC (RBC) [Mass/Vol]33.6 g/dL29.9 - 35.2 g/dLChildren's Mercy HospitalV (RBC) [Entitic vol]91 fL81.0 - 99.0 fLCox Walnut LawnPlatelet mean volume (Bld) [Entitic vol]9.2 fLLow9.5 - 13.5 fLCox Walnut LawnTBH QAW727ZBMGDeaconess Incarnate Word Health SystemTBH RBC5.13C[facility] Walnut LawnTB WBC7.7C[facility] LawnHematocrit Auto (Bld) [Volume fraction]on 16-70-7496Vteolauidd (Bld) [Volume fraction]Hematocrit [Volume Fraction] of Blood by Automated count36.0-48.0[facility] HospitalHemoglobin [Mass/volume] in Bloodon 94-22-0941Jzptzvghat (Bld) [Mass/Vol] Hemoglobin [Mass/volume] in Blood12.0-16.0[facility] Laboratory - Chemistry and Chemistry - challengeon 53-77-2750Vpchrju [Mass/Vol] 3.8 g/dL3.4-5.0[facility] HospitalCalcium [Mass/Vol]8.9 mg/dL 8.5-10.1FPike Community HospitalChloride [Moles/Vol]105 mmol/L98-107 [facility] HospitalCO2 [Moles/Vol]20.7 mmol/LLow21.0-32.0[facility] HospitalCreatinine [Mass/Vol]1.41 mg/dLHigh0.55-1.02[facility] HospitalGFR/1.73 sq M.predicted MDRD (S/P/Bld) [Vol rate/Area]46 mL/min/{1.73_m2}Low>=60 mL/min/1.73m 2FPike Community HospitalGlucose [Mass/Vol]110 mg/eJQatb32-701RtamkkaepOhiohealth Dublin Methodist HospitalMagnesium [Mass/Vol]1.9 mg/dL1.8-2.4FPike Community HospitalPotassium [Moles/Vol] 3.9 mmol/L3.5-5.1FTriHealth Bethesda Butler Hospitalodium [Moles/Vol]141 mmol/L 136-145Ohio[facility] Methodist HospitalUrate [Mass/Vol]3.6 mg/dL2.6-6.0 [facility] HospitalUrea nitrogen [Mass/Vol]26.0 mg/dLHigh7.0-18.0 [facility] HospitalUrea nitrogen/Creatinine [Mass ratio]18.4 mg/mg [facility] HospitalBilirubin Ql (U)NegativeNEGATIVEOhiohealth Dublin Methodist HospitalGlucose (U) [Mass/Vol]NegativeNEGATIVEOhiohealth Dublin Methodist HospitalKetones Ql (U)NegativeNEGATIVEOhiohealth Dublin Methodist HospitalpH (U)6.0 [pH]5.0-9.0[facility] Hospitalpecific gravity (U) [Rel density]1.0151.005-1.025Ohio[facility] HospitalUrobilinogen Qn (U)0.2 {Jimmy'U}/dL0.2-1.0[facility] HospitalLaboratory - Specimen informationon 99-59-6166Fehtrsayql (U)CLEARCLEARFPike Community HospitalColor (U)YELLOWYELLOWOhiohealth Dublin Methodist HospitalLaboratory - Urinalysison 03-95-3226Gjlmdonnw esterase Test strip Ql (U)NegativeNEGATIVE [facility] HospitalNitrite Ql (U)NegativeNEGATIVEOhiohealth Dublin Methodist HospitalProtein (U) [Mass/Vol]24.8 mg/dLHigh<=11.9[facility] HospitalProtein Ql (U)NegativeNEG/TRACEOhiohealth Dublin Methodist HospitalLeukocytes [#/volume] corrected for nucleated erythrocytes in Blood by Automated counon 94-20-6546LWT corrected for nucl RBC Auto (Bld) [#/Vol] Leukocytes [#/volume] corrected for nucleated erythrocytes in Blood by Automated coun4.0-11.0[facility] HospitalMCH Auto (RBC) [Entitic mass]on 56-35-4036OEQ (RBC) [Entitic mass]MCH [Entitic mass] by Automated count26.7-34.0 [facility] HospitalMCHC Auto (RBC) [Mass/Vol]on 95-05-2327KXMH (RBC) [Mass/Vol]MCHC [Mass/volume] by Automated count29.9-35.2FPike Community HospitalMCV Auto (RBC) [Entitic vol]on 48-24-9048CNN (RBC) [Entitic vol] MCV [Entitic volume] by Automated count81.0-99.0[facility] HospitalMicroalbumin [Mass/volume] in Urineon 58-31-4677Vwxyikl DL <= 20 mg/L (U) [Mass/Vol]Microalbumin [Mass/volume] in Urine<=30.0[facility] HospitalNo Panel Informationon 38-58-1084EOTMBHPNHESMD Rxtnpwoabz88-Mlltfbf Vitamin D Total54.5 ng/mLOhiohealth Dublin Methodist HospitalComment on above:<20 ng/mL Vit D jzhemizlr71-<30 ng/mL Vit D mxkeqnjfzlih73-846 ng/mL Vit D sufficient>100 ng/mL Potential ToxicityParathyroid Hormone (Intact)25 pg/mL15-65 [facility] HospitalComment on above:Performed at: [employer] [address] [id number] Director: Davion Noonan PhD, Phone: [phone] Level3.4 mg/dL2.6-4.7FPike Community HospitalUrine Occult BloodTRACE-INEGATIVEOhiohealth Dublin Methodist HospitalUrine Random Dzdjuolqez965.31 mg/dL20.00-300.00[facility] Platelet mean volume Auto (Bld) [Entitic vol]on 92-78-2092Zbaaefiq mean volume (Bld) [Entitic vol]Platelet mean volume [Entitic volume] in Blood by Automated countLow9.5-13.5FPike Community HospitalPlatelets Auto (Bld) [#/Vol]on 12-55-5709Gdeyncwbe (Bld) [#/Vol]Platelets [#/volume] in Blood by Automated vsicq793-256TbzsdlqsfOhiohealth Dublin Methodist HospitalRBC Auto (Bld) [#/Vol]on 12-14-2024 RBC (Bld) [#/Vol]Erythrocytes [#/volume] in Blood by Automated count4.20-5.40 [facility] Hospitalerum or plasma anion gap determinationon 97-39-4924Ykfqj gap [Moles/Vol]Serum or plasma anion gap determinationOhiohealth Dublin Methodist HospitalUrine microalbumin/creatinine mass ratioon 12-14-2024 Albumin/Creatinine DL <= 20 mg/L (U) [Mass ratio]Urine microalbumin/creatinine mass ratio0.0-29.9[facility] HospitalComment on above:NO MICROALBUMINURIA 0-29 MG/GCLINICAL MICROALBUMINURIA 30-300 MG/GMACROALBUMINURIA >300 MG/GUrine protein/creatinine ratioon 01-29-7310Fvsommc/Creatinine (U) [Ratio]Urine protein/creatinine ratioOhiohealth Dublin Methodist Hospital Erythrocyte distribution width Auto (RBC) [Ratio]on 00-43-0538Xpaeenxygfr distribution width (RBC) [Ratio]Erythrocyte distribution width [Ratio] by Automated count11.0-15.0[facility] HospitalEstimated glomerular filtration rate (GFR) non- Americanon 08-83-6308LTZ/1.73 sq M.predicted among non-blacks MDRD (S/P/Bld) [Vol rate/Area]Estimated glomerular filtration rate (GFR) non- AmericanLow>=60 mL/min/1.73m 2FPike Community HospitalHematocrit Auto (Bld) [Volume fraction]on 93-69-1238Dcdkvcwpyc (Bld) [Volume fraction]Hematocrit [Volume Fraction] of Blood by Automated count 36.0-48.0[facility] HospitalHemoglobin [Mass/volume] in Bloodon 17-28-8346Rjzhpaxjpd (Bld) [Mass/Vol]Hemoglobin [Mass/volume] in Blood12.0-16.0 [facility] HospitalLaboratory - Chemistry and Chemistry - challengeon 56-27-4153Cmoezvtkt Ql (U)NegativeNEGATIVEOhiohealth Dublin Methodist HospitalGlucose (U) [Mass/Vol]NegativeNEGATIVEOhiohealth Dublin Methodist Hospital Ketones Ql (U)NegativeNEGATIVEOhiohealth Dublin Methodist HospitalpH (U)6.0 [pH] 5.0-9.0[facility] Hospitalpecific gravity (U) [Rel density]1.015 1.005-1.025[facility] HospitalUrobilinogen Qn (U)0.2 {Jimmy'U}/dL0.2-1.0[facility] HospitalAlbumin [Mass/Vol]3.6 g/dL 3.4-5.0[facility] HospitalCalcium [Mass/Vol]8.8 mg/dL8.5-10.1 [facility] HospitalChloride [Moles/Vol]105 mmol/Q28-128TbktdrvvwOhiohealth Dublin Methodist HospitalCO2 [Moles/Vol]26.0 mmol/L21.0-32.0[facility] HospitalCreatinine [Mass/Vol]1.69 mg/dLHigh0.55-1.02[facility] HospitalGFR/1.73 sq M.predicted MDRD (S/P/Bld) [Vol rate/Area]37 mL/min/{1.73_m2}Low>=60 mL/min/1.73m 2FPike Community HospitalGlucose [Mass/Vol]105 mg/jV13-471HvdfzqvniOhiohealth Dublin Methodist HospitalMagnesium [Mass/Vol] 1.8 mg/dL1.8-2.4FPike Community HospitalPotassium [Moles/Vol]3.8 mmol/L 3.5-5.1FTriHealth Bethesda Butler Hospitalodium [Moles/Vol]141 mmol/X016-510 [facility] HospitalUrate [Mass/Vol]4.4 mg/dL2.6-6.0[facility] HospitalUrea nitrogen [Mass/Vol]27.0 mg/dLHigh7.0-18.0[facility] HospitalUrea nitrogen/Creatinine [Mass ratio]16.0 mg/mgOhiohealth Dublin Methodist HospitalLaboratory - Specimen informationon 88-83-9038Joyzoynvcr (U)CLEARCLEARFPike Community HospitalColor (U)YELLOWYELLOWOhiohealth Dublin Methodist HospitalLaboratory - Urinalysison 34-26-6991Gjzbuaelf esterase Test strip Ql (U)NegativeNEGATIVEOhiohealth Dublin Methodist HospitalNitrite Ql (U) NegativeNEGATIVEOhiohealth Dublin Methodist HospitalProtein (U) [Mass/Vol]20.7 mg/dLHigh<=11.9[facility] HospitalProtein Ql (U)NegativeNEG/TRACE [facility] HospitalLeukocytes [#/volume] corrected for nucleated erythrocytes in Blood by Automated counon 60-77-4478HQS corrected for nucl RBC Auto (Bld) [#/Vol]Leukocytes [#/volume] corrected for nucleated erythrocytes in Blood by Automated coun4.0-11.0[facility] HospitalH Auto (RBC) [Entitic mass]on 62-51-6720VFH (RBC) [Entitic mass]MCH [Entitic mass] by Automated count26.7-34.0Mar[facility] HospitalHC Auto (RBC) [Mass/Vol]on 35-75-0358YJLV (RBC) [Mass/Vol]MCHC [Mass/volume] by Automated count29.9-35.2FMercy Health St. Anne HospitalV Auto (RBC) [Entitic vol]on 34-66-7533AMO (RBC) [Entitic vol]MCV [Entitic volume] by Automated count 81.0-99.0[facility] HospitalMicroalbumin [Mass/volume] in Urineon 38-62-7603Vumuisq DL <= 20 mg/L (U) [Mass/Vol]Microalbumin [Mass/volume] in Urine<=30.0[facility] HospitalNo Panel Informationon 08-07-2024 Urine Occult BloodTRACE-LNEGATIVEOhiohealth Dublin Methodist HospitalUrine Random Ixszvfpzln324.22 mg/dL20.00-300.00[facility]25-Hydroxy Vitamin D Total45.1 ng/mLOhiohealth Dublin Methodist HospitalComment on above:<20 ng/mL Vit D -<30 ng/mL Vit D avrdnmybdkug86-941 ng/mL Vit D sufficient>100 ng/mL Potential ToxicityParathyroid Hormone (Intact)30 pg/mL15-65 [facility] HospitalComment on above:Performed at: - Lab[address] [id number] Director: Davion Noonan PhD, Phone: [phone] Level3.7 mg/dL2.6-4.7FPike Community HospitalPlatelet mean volume Auto (Bld) [Entitic vol]on 41-47-3109Jkwuirpc mean volume (Bld) [Entitic vol]Platelet mean volume [Entitic volume] in Blood by Automated countLow9.5-13.5FPike Community HospitalPlatelets Auto (Bld) [#/Vol]on 98-96-3015Zmmqbtygy (Bld) [#/Vol]Platelets [#/volume] in Blood by Automated mtqee006-981NnrrekcavOhiohealth Dublin Methodist HospitalRBC Auto (Bld) [#/Vol]on 87-34-5850BNK (Bld) [#/Vol]Erythrocytes [#/volume] in Blood by Automated count 4.20-5.40[facility] Hospitalerum or plasma anion gap determinationon 04-61-8068Dmvpk gap [Moles/Vol]Serum or plasma anion gap determinationOhiohealth Dublin Methodist HospitalUrine microalbumin/creatinine mass ratioon 20-38-9655Dmipvml/Creatinine DL <= 20 mg/L (U) [Mass ratio]Urine microalbumin/creatinine mass ratio0.0-29.9[facility] Comment on above:NO MICROALBUMINURIA 0-29 MG/GCLINICAL MICROALBUMINURIA 30-300 MG/GMACROALBUMINURIA >300 MG/GUrine protein/creatinine ratioon 08-07-2024 Protein/Creatinine (U) [Ratio]Urine protein/creatinine ratioOhiohealth Dublin Methodist HospitalXR DEXA AXIAL SKELETONon 11-42-7019Nur[address] [address] XRay Report Signed Patient: МАРИЯ LAY MR#: [id number] : 1965 Acct:[id number] Age/Sex: 58 / F ADM Date: 05/14/24 Loc: MAMMO Attending Dr: Danya Najera Ordering Physician: Danya Najera Date of Service: 05/14/24 Procedure(s): XR DEXA axial skeleton Accession Number(s): [id number] cc: Danya Najera; Physician,Non-Staff M.D. [address] [address] Patient Name: МАРИЯ LAY MRN: [id number] date: 1965 Sex: F Assigned Patient Location: MAMMO Current Patient Location: Accession/Order Number: [id number] Exam Date: 05/14/2024 11:10 Report Date: 05/15/2024 [...] prevention and treatment of osteoporosis. Osteoporos Int. 2021;33(10):2499-7024. doi: 10.1007/s87728-189-17077-n. Epub 2021Nov 08. Erratum in: Osteoporos Int. 2021Feb 07;: PMID: 69571661; PMCID: [id number]. Electronically authenticated by: JAY MARTINEZ Date: 05/15/2024 06:10 Dictated By: Jay Martinez M.D. Signed By: 05/15/24611 DD/ 9 TD/TT: Automat Car Attendant:PRAKASHHRadiologrobi, Radiologist, - 05/15/2024 [place] [address] XRay Report Signed Patient: МАРИЯ LAY MR#: [id number] : 1965 Acct:[id number] Age/Sex: 58 / F ADM Date: 05/14/24 [facility]: Danya Najera Ordering Physician: Danya Najera Date of Service: 05/14/24 Procedure(s): XR DEXA axial skeleton Accession Number(s): [id number] cc: Danya Najera; Physician,Non-Staff M.Brady [place] [address] Patient Name: МАРИЯ LAY MRN: [id number] date: 1965 Sex: F Assigned Patient Location: [facility] Current Patient Location: Accession/Order Number: [id number] Exam Date: 05/14/2024 11:10 Report Date: 05/15/2024 [...] prevention and treatment of osteoporosis. Osteoporos Int. 2021;33(10):0949-9737. doi: 10.1007/p45435-201-47824-p. Epub 2021Nov 08. Erratum in: Osteoporos Int. 2021Feb 07;: PMID: 23269926; PMCID: [id number]. Electronically authenticated by: JAY MARTINEZ Date: 05/15/2024 06:10 Dictated By: Jay Martinez M.D. Signed By: 05/15/24611 DD/ 9 TD/TT: Automat Car Attendant: [facility] HealthcareRadiology Study observation (narrative)ZENA HealthcareXR DEXA AXIAL SKELETONOrdered By: Radiologist Radiology on 04-69-1162ZQPX Healthcare Work Phone: mm TOMOSYNTHESIS SCREENING BIon 65-72-4346Ftc[address] [place] [address] Mammography Report Signed Patient: МАРИЯ LAY MR#: [id number] : 1965 Acct:[id number] Age/Sex: 58 / F ADM Date: 05/14/24 Loc: MAMMO Attending Dr: Danya Najera Ordering Physician: Danya Najera Results: Date of Service: 05/14/24 Follow Up: Procedure(s): MM tomosynthesis screening BI Accession Number(s): [id number] cc: Danya Najera; Physician,Non-Staff M.DEliceo Patient Name: МАРИЯ LAY MR#: [id number] : 1965 Exam Date: 05/14/2024 Ordering Doctor: [...] uterine cancer at age 27. LOCATION: [facility] BREAST COMPOSITION: The breasts are heterogeneously [...] Signed By: 05/14/24 1333 DD/ 1333 TD/TT: Automat Car Attendant:TBHRadiology, RadiologistMD - 05/14/2024 [place] [address] Mammography Report Signed Patient: МАРИЯ LAY MR#: [id number] : 1965 Acct:[id number] Age/Sex: 58 / F ADM Date: 05/14/24 Loc: MAMMO Attending Dr: Danya Najera Ordering Physician: Danya Najera Results: Date of Service: 05/14/24 Follow Up: Procedure(s): MM tomosynthesis screening BI Accession Number(s): [id number] cc: Danya Najera; Physician,Non-Staff M.DEliceo Patient Name: МАРИЯ LAY MR#: [id number] : 1965 Exam Date: 05/14/2024 Ordering Doctor: [...] uterine cancer at age 27. LOCATION: [facility] BREAST COMPOSITION: The breasts are heterogeneously [...] Signed By: 05/14/24 1333 DD/ 32 TD/TT: Automat Car Attendant: [facility] HealthcareRadiology Study observation (narrative)[facility] TOMOSYNTHESIS SCREENING BIOrdered By: Radiologist Radiology on 68-68-9876[facility] Work Phone: IGP,APTIMA HPV,AGE GDLNon 64-31-8791XQZ GDLN ACOG TESTINGNote.[facility] HealthcareComment on above:TESTS RESULT FLAG UNITS REF RANGE LAB Clinician Provided Cytology Information Source.............Vagina No. of containers..01 ThinPrep Vial Age Shellyo YINA Marisol... FLAG LEGEND: L-Low Normal,H-High Normal,LL-Alert Low,HH-Alert High <-Panic Low,>-Panic High,A-Abnormal,AA-Critical Abnormal Performed at: 01 =[address] [address] Coby Russell MD, HPV APTIMANegativeNegativeLAKEVIEW HOSPITAL HealthcareComment on above:This nucleic acid amplification test detects fourteen high- risk HPV types (16,18,31,33,35,39,45,51,52,56,58,59,66,68) without differentiation. Performed at: =[address] [id number] Employee Relations Consultant: Coby Russell MD, Phone: [phone] Performed at: [address] [id number] Employee Relations Consultant: Coby Russell MD, Phone: [phone] IGP, APTIMA HPV, RFX 16/18,45Note.NOMS HealthcareComment on above:TESTS RESULT FLAG UNITS REF RANGE LAB DIAGNOSIS: 02 NEGATIVE FOR INTRAEPITHELIAL LESION OR MALIGNANCY. Specimen adequacy: 02 Satisfactory for evaluation. Performed by: 02 Nazia Crump, Sheep And Wheat Farmer ([facility]) . 02 Note: Note 02 [...] Low,>-Panic High,A-Abnormal,AA-Critical Abnormal Performed at: 02 [facility] [address] [place] [address] Coby Russell MD, SPATULA-ALONE VAGINA CLINISYNCCox Walnut LawnNo Panel Informationon 64-91-1572XV[facility] Laboratory - Chemistry and Chemistry - challengeon 64-63-2556Jgbobof [Mass/Vol] 3.6 g/dL3.4-5.0[facility] HospitalMagnesium [Mass/Vol]1.7 mg/dLLow 1.8-2.4FPike Community HospitalUrate [Mass/Vol]4.6 mg/dL2.6-6.0 [facility] HospitalBilirubin Ql (U)NegativeNEGATIVEOhiohealth Dublin Methodist HospitalGlucose (U) [Mass/Vol]NegativeNEGATIVEOhiohealth Dublin Methodist HospitalKetones Ql (U)NegativeNEGATIVEOhiohealth Dublin Methodist HospitalpH (U)6.0 [pH]5.0-9.0[facility] Hospitalpecific gravity (U) [Rel density]1.0201.005-1.025[facility] HospitalUrobilinogen Qn (U)0.2 {Jimmy'U}/dL0.2-1.0[facility] HospitalLaboratory - Specimen informationon 31-08-3557Oxvosogjgk (U)CLEARCLEARFPike Community HospitalColor (U)LT. YELLOWYELLOWOhiohealth Dublin Methodist HospitalLaboratory - Urinalysison 21-16-7700Mkfhvwsfr esterase Test strip Ql (U)NegativeNEGATIVE [facility] HospitalNitrite Ql (U)NegativeNEGATIVEOhiohealth Dublin Methodist HospitalProtein (U) [Mass/Vol]13.0 mg/dLHigh<=11.9[facility] HospitalProtein Ql (U)NegativeNEG/TRACEOhiohealth Dublin Methodist HospitalMicroalbumin [Mass/volume] in Urineon 71-73-3017Cyfoiia DL <= 20 mg/L (U) [Mass/Vol]mg/dL<=30.0[facility] HospitalNo Panel Informationon 79-07-668083612176-Amzpvfx Vitamin D Total54.3 ng/mLOhiohealth Dublin Methodist Hospital Comment on above:<20 ng/mL Vit D esxkbmqnv54-<30 ng/mL Vit D fncmuagjkich73-756 ng/mL Vit D sufficient>100 ng/mL Potential ToxicityParathyroid Hormone (Intact) 28 pg/nD03-22WbdtxeotdOhiohealth Dublin Methodist HospitalComment on above:Performed at: [address] [id number] Director: Davion Noonan PhD, Phone: [phone] Level4.0 mg/dL2.6-4.7FPike Community HospitalUrine Occult BloodTRACE-INEGATIVEOhiohealth Dublin Methodist HospitalUrine Random Odsnetuiay487.15 mg/dL20.00-300.00[facility] HospitalProtein/Creatinine (U) [Ratio]on 26-70-6210Sgwre Protein/Creatinine Ratio0.09[facility] Methodist HospitalMR Abdomen WO and W contrast Mariana 18-78-1181[place] [address] Magnetic Resonance Report Signed Patient: МАРИЯ LAY MR#: [id number] : 1965 Acct:[id number] Age/Sex: 57 / F ADM Date: 08/22/23 Loc: MRI Attending Dr: Shaikh Cecilio Branch Ordering Physician: Shaikh Jose Carlos Hernandes Date of Service: 08/22/23 Procedure(s): MR abdomen wo/w con Accession Number(s): [id number] cc: Shaikh Jose Carlos Hernandes [place] [address] Patient Name: МАРИЯ LAY MRN: [id number] date: 1965 Sex: F Assigned Patient Location: MRI Current Patient Location: Accession/Order Number: [id number] Exam Date: 08/22/2023 13:45 Report Date: 08/25/2023 [...] M.D. Signed By: 08/25/23817 DD/ 4 TD/TT: Automat Car Attendant:TBHRadiology, Radiologist, MD - 08/25/2023 [place] [address] Magnetic Resonance Report Signed Patient: МАРИЯ LAY MR#: [id number] : 1965 Acct:[id number] Age/Sex: 57 / F ADM Date: 08/22/23 Loc: MRI Attending Dr: Shaikh Cecilio Branch Ordering Physician: Shaikh Jose Carlos Hernandes Date of Service: 08/22/23 Procedure(s): MR abdomen wo/w con Accession Number(s): [id number] cc: Shaikh Jose Carlos Hernandes [place] [address] Patient Name: МАРИЯ LAY MRN: [id number] date: 1965 Sex: F Assigned Patient Location: MRI Current Patient Location: Accession/Order Number: [id number] Exam Date: 08/22/2023 13:45 Report Date: 08/25/2023 [...] M.D. Signed By: 08/25/23817 DD/ 4 TD/TT: Automat Car Attendant: [facility] LawnRadiology Study observation (narrative)[facility] Abdomen WO and W contrast IVOrdered By: Radiologist Radiology on 47-61-2015WFJSCox Walnut Lawn Work Phone: all BUNon 50-30-9883Wxtf nitrogen [Mass/Vol]21.0 mg/dL High7.0 - 18.0 mg/dLCox Walnut LawnNo Panel Informationon 08-22-2023 Interpretation and review of laboratory resultsAbnormalCox Walnut LawnCLINISYNC [facility] CREATININEon 85-49-6259Oncuzzeorj [Mass/Vol]1.48 mg/dLHigh 0.55 - 1.02 mg/dLCox Walnut LawnGFR/1.73 sq M.predicted CKD-EPI (S/P/Bld) [Vol rate/Area]69Fkb77 - PINFJohn J. Pershing VA Medical Center EGFR-NON AF ZZVAKDVG00Rll77 - PINF [facility] RENAL BIon 87-98-4316Ex[address] [address] Ultrasound Report Signed Patient: МАРИЯ LAY MR#: [id number] : 1965 Acct:[id number] Age/Sex: 57 / F ADM Date: 06/27/23 Loc: US Attending Dr: Shaikh Cecilio Branch Ordering Physician: Shaikh Jose Carlos Hernandes Date of Service: 06/27/23 Procedure(s): US renal BI Accession Number(s): [id number] cc: Shaikh Jose Carlos Hernandes [place] [address] Patient Name: МАРИЯ LAY MRN: [id number] date: 1965 Sex: F Assigned Patient Location: US Current Patient Location: US Accession/Order Number: [id number] Exam Date: 06/27/2023 08:58 Report Date: 06/27/2023 [...] Signed By: 06/27/23 1001 DD/ 0958 TD/TT: Automat Car Attendant:PRAKASHHRadiology, Radiologist, - 06/27/2023 [place] [address] Ultrasound Report Signed Patient: МАРИЯ LAY MR#: [id number] : 1965 Acct:[id number] Age/Sex: 57 / F ADM Date: 06/27/23 Loc: US Attending Dr: Shaikh Cecilio Branch Ordering Physician: Shaikh Jose Carlos Hernandes Date of Service: 06/27/23 Procedure(s): US renal BI Accession Number(s): [id number] cc: Shaikh Jose Carlos Hernandes [place] [address] Patient Name: МАРИЯ LAY MRN: [id number] date: 1965 Sex: F Assigned Patient Location: US Current Patient Location: US Accession/Order Number: [id number] Exam Date: 06/27/2023 08:58 Report Date: 06/27/2023 [...] Signed By: 06/27/23 1001 DD/ 0958 TD/TT: Automat Car Attendant: [facility] HEALTH CENTERDiana HealthcareRadiology Study observation (narrative)[facility] HealthcareUS RENAL BI Ordered By: Radiologist Radiology on 99-36-1983NNMW [employer] Work Phone: XR LSPINE MIN 4 VIEWSon 87-23-5784HJ LSPINE MIN 4 VIEWSEXAMINATION: XR LSPINE MIN [...] Electronically authenticated by: JAY MARTINEZ Date: 2022-06-07 12:11[facility] InstituteB-Type Natriuretic Peptideon 94-30-0625Ryiszejnvwd peptide B (Bld) [Mass/Vol]64.0 pg/mLNormal5-100Ohio[facility] Dublin Methodist HospitalComment on above:Result Comment: PERFORMED BY: [place] [address] PATHOLOGIST RAIL TRACTOR OPERATOR SHIMA SY M.D.Performed By: #### CK, CKMB, CBC, BMP, BNP #### [address] [address] USABasic Metabolic Panelon 47-18-1275Ubcgzeq [Mass/Vol]9.3 mg/dLNormal8.2-10.2FPike Community HospitalComment on above:Performed By: #### CK, CKMB, CBC, BMP, BNP #### [facility] [address] [place] [address] USAChloride [Moles/Vol]104 mmol/TWenfnm42-882CeqwutejnOhiohealth Dublin Methodist HospitalComment on above:Performed By: #### CK, CKMB, CBC, BMP, BNP #### [facility] [address] [place] [address] USACO2 [Moles/Vol]19.9 mmol/LLow22.0-30.0Ohio[facility] Dublin Methodist HospitalComment on above:Performed By: #### CK, CKMB, CBC, BMP, BNP #### [place] [address] USACreatinine [Mass/Vol]1.27 mg/dLHigh0.44-1.03Ohio[facility] Dublin Methodist HospitalComment on above:Performed By: #### CK, CKMB, CBC, BMP, BNP #### [place] [address] USACreatinine Clr Calc Bckucfcb65.75NoKettering Health DaytonComment on above:Result Comment: PERFORMED BY: [place] [address] PATHOLOGIST RAIL TRACTOR OPERATOR SHIMA SY M.D.Performed By: #### CK, CKMB, CBC, BMP, BNP #### [place] [address] USAEstimated GFR ( Rbppjll88KjpedyYfibhykbyRegency Hospital Cleveland WestComment on above:Result Comment: GFR estimated reference range: According to KDOQI guidelines, <60 ml/min/1.73m2 is sufficient to diagnose a patient with chronic kidney disease.Performed By: #### CK, CKMB, CBC, BMP, BNP #### [place] [address] USAEstimated GFR (Non- Qb42AetldoWjdechesbRegency Hospital Cleveland WestComment on above:Performed By: #### CK, CKMB, CBC, BMP, BNP #### [facility] [address] [place] [address] USAGlucose [Mass/Vol]96 mg/lYOfhwnt63-012SgoucpzkfOhiohealth Dublin Methodist HospitalComment on above:Result Comment: Random Glucose Reference Range is dependent on time and content of last meal. Glucose of more than 200 mg/dL in a nonstressed, ambulatory subject supports the diagnosis of Diabetes Mellitus. ADA recommended reference rangePerformed By: #### CK, CKMB, CBC, BMP, BNP #### [facility] [address] [place] [address] USAPotassium [Moles/Vol]3.7 mmol/LNormal3.5-5.1FPike Community HospitalComment on above:Performed By: #### CK, CKMB, CBC, BMP, BNP #### [facility] [address] [place] [address] USASodium [Moles/Vol]135 mmol/VZmz807-531QsivwnbnqOhiohealth Dublin Methodist HospitalComment on above:Performed By: #### CK, CKMB, CBC, BMP, BNP #### [facility] [address] [place] [address] USAUrea nitrogen [Mass/Vol]17 mg/dLNormal9-23Ohio[facility] Dublin Methodist HospitalComment on above:Performed By: #### CK, CKMB, CBC, BMP, BNP #### [place] [address] USACOVID-19 Antigenon 82-57-5336TXUQE-19 AntigenHealthcare Worker?: N Bella Reference Bella Reference [...] its performance Bella Disclaimer characteristic determined by [employer] and Bella Disclaimer validated at [facility]. This Bella Disclaimer test has not [...] is terminated or revoked sooner. PERFORMED BY: [place] [address] PATHOLOGIST RAIL TRACTOR OPERATOR SHIMA SY M.D.Reg[facility] Hospital Cleveland WestComment on above: Performed By: #### FLU, COVID-19 BELLA, SOFIANEG #### [place] [address] USAComplete Blood Count Auto Diffon 73-06-6530Pklawihgs (Bld) [#/Vol]0.1 10*3/uLNormal0.0-0.2FPike Community HospitalComment on above:Result Comment: PERFORMED BY: [place] [address] PATHOLOGIST RAIL TRACTOR OPERATOR SHIMA SY M.D.Performed By: #### CK, CKMB, CBC, BMP, BNP #### [place] [address] USABasophils/100 WBC (Bld)1.4 %Normal.Ohio[facility] Dublin Methodist HospitalComment on above:Performed By: #### CK, CKMB, CBC, BMP, BNP #### [place] [address] USAEosinophils (Bld) [#/Vol]0.2 10*3/uLNormal0.0-0.45 [facility] HospitalComment on above:Performed By: #### CK, CKMB, CBC, BMP, BNP #### [place] [address] USAEosinophils/100 WBC (Bld)2.3 %Normal.Ohio[facility] Dublin Methodist HospitalComment on above:Performed By: #### CK, CKMB, CBC, BMP, BNP #### [address] [place] [address] USAErythrocyte distribution width (RBC) [Ratio]13.2 %Normal 11.9-15.3FPike Community HospitalComment on above:Performed By: #### CK, CKMB, CBC, BMP, BNP #### [place] [address] USAHematocrit (Bld) [Volume fraction]41.5 %Tfmeqm23.0-46.4 [facility] HospitalComment on above:Performed By: #### CK, CKMB, CBC, BMP, BNP #### [place] [address] USAHemoglobin (Bld) [Mass/Vol]13.8 g/uSDgorvv99.8-15.4 [facility] HospitalComment on above:Performed By: #### CK, CKMB, CBC, BMP, BNP #### [place] [address] USALymphocytes (Bld) [#/Vol]3.6 10*3/uLNormal1.00-4.8 [facility] HospitalComment on above:Performed By: #### CK, CKMB, CBC, BMP, BNP #### [place] [address] USALymphocytes/100 WBC (Bld)39.0 %Normal.[facility] Dublin Methodist HospitalComment on above:Performed By: #### CK, CKMB, CBC, BMP, BNP #### [place] [address] USAMCH (RBC) [Entitic mass]30.7 hqMlympu87.7-34.3FPike Community HospitalComment on above:Performed By: #### CK, CKMB, CBC, BMP, BNP #### [place] [address] USAMCV (RBC) [Entitic vol]91.9 vOOqjlto70-626SxdrrytxiOhiohealth Dublin Methodist HospitalComment on above:Performed By: #### CK, CKMB, CBC, BMP, BNP #### [address] [place] [address] USAMean Corpuscular HGB Conc33.4 g/fUYhofcy05.0-35.0[facility] HospitalComment on above:Performed By: #### CK, CKMB, CBC, BMP, BNP #### [facility] [address] [place] [address] USAMonocytes (Bld) [#/Vol]0.8 10*3/uLNormal0.0-0.8[facility] HospitalComment on above:Performed By: #### CK, CKMB, CBC, BMP, BNP #### [facility] [address] [place] [address] USAMonocytes/100 WBC (Bld)9.0 %Normal.[facility] Dublin Methodist HospitalComment on above:Performed By: #### CK, CKMB, CBC, BMP, BNP #### [place] [address] USANeutrophils (Bld) [#/Vol]4.4 10*3/uLNormal1.8-7.7FPike Community HospitalComment on above:Performed By: #### CK, CKMB, CBC, BMP, BNP #### [place] [address] USANeutrophils/100 WBC (Bld)48.3 %Normal.[facility] Dublin Methodist HospitalComment on above:Performed By: #### CK, CKMB, CBC, BMP, BNP #### [place] [address] USANucleated RBC/100 WBC (Bld) [Ratio]0.1 %Normal0-0.5 [facility] HospitalComment on above:Performed By: #### CK, CKMB, CBC, BMP, BNP #### [facility] [address] [place] [address] USAPlatelet mean volume (Bld) [Entitic vol]7.0 fLNormal 6.3-10.7FPike Community HospitalComment on above:Performed By: #### CK, CKMB, CBC, BMP, BNP #### [facility] [address] [place] [address] USAPlatelets (Bld) [#/Vol]237 10*3/sQLhawmm160-819QyklewncoOhiohealth Dublin Methodist HospitalComment on above:Performed By: #### CK, CKMB, CBC, BMP, BNP #### [place] [address] USARBC (Bld) [#/Vol]4.51 10*6/uLNormal3.60-5.00[facility] HospitalComment on above:Performed By: #### CK, CKMB, CBC, BMP, BNP #### [place] [address] USAWBC (Bld) [#/Vol]9.1 10*3/uLNormal4.5-11.0[facility] HospitalComment on above:Performed By: #### CK, CKMB, CBC, BMP, BNP #### [place] [address] USACreatine Kinaseon 26-80-8394XL [Catalytic activity/Vol]69 U/LQuthtx51-852GjrycorpaOhiohealth Dublin Methodist HospitalComment on above:Performed By: #### CK, CKMB, CBC, BMP, BNP #### [place] [address] USACreatinine Kinase MBon 31-73-3599LE.MB [Mass/Vol]3.1 ng/mL Normal0.6-6.3FPike Community HospitalComment on above:Performed By: #### FLU, COVID-19 BELLA, SOFIANEG #### [place] [address] USACKMB Relative Index4.4 %High0.00-2.50[facility] HospitalComment on above:Result Comment: PERFORMED BY: [place] [address] PATHOLOGIST RAIL TRACTOR OPERATOR SIHMA SY M.D.Performed By: #### FLU, COVID-19 BELLA, SOFIANEG #### [address] [place] [address] USAECG 12 lead ECGon 19-57-9094BLU 12 lead [facility] [place] [address] [place] [address] Electrocardiograph Report Signed Patient: Мария Lay MR#: [id number] : 1965 Acct:[id number] Age/Sex: 55 / F ADM Date: 10/10/21 Loc: ER Room: Type[place] [facility] [place]ending Dr: Ordering Provider: Kathryn Parks [...] leads Confirmed by KATHRYN PARKS DO ([id number]), newspaper or periodical editor Trent Garay ([id number]) on 10/11/2021 11:15:22 AM Referred By: Electronically Signed By:KATHRYN PARKS DO Transcribed By: MUS Signed By Kathryn Parks DO 111[address]Reg[facility] Hospital Cleveland WestInfluenza A and B Antigenon 95-35-9740Iymtgepri A and B AntigenNote 6 be below [...] samples is recommended. Note 7 PERFORMED BY: [place] [id number] PATHOLOGIST RAIL TRACTOR OPERATOR SHIMA SY M.D.NormalOhiohealth Dublin Methodist HospitalComment on above: Performed By: #### FLU, COVID-19 BELLA, SOFIANEG #### [facility] [address] [place] [address] USASofia Ag Negativeon 74-46-6070Kvzwq Ag NegativeNegative NormalNegativeOhiohealth Dublin Methodist HospitalComment on above:Result Comment: This is a duplicate Bella SARS Antigen (BLAYNE) result to be used for statistical tracking purpose only. PERFORMED BY: [place] [address] PATHOLOGIST RAIL TRACTOR OPERATOR SHIMA SY M.D.Performed By: #### FLU, COVID-19 BELLA, SOFIANEG #### [place] [address] USATroponin I High Sensitivityon 00-63-9351Okuubxbg I High Tzoeccxsmig24 pg/mLNormal0-15[facility] HospitalComment on above: Result Comment: PERFORMED BY: [place] [address] PATHOLOGIST RAIL TRACTOR OPERATOR SHIMA SY M.D.Performed By: #### HS TROP #### [place] [address] USAXR chest 1V portableon 37-24-0926TL chest 1V portable [facility] [address] XRay Report Signed Patient: Мария Lay MR#: [id number] : 1965 Acct:[id number] Age/Sex: 55 / F ADM Date: 10/10/21 Loc: ER Room: Type: [facility] ER Attending Dr: Ordering Provider: Kathryn [...] David Walker M.D.10/10/2021 7:52 PM Dictation Location: [place] [address] Transcribed By: ROMEL 10/10/211951 Dictated By: David Walker II, MD 10/10/211949 Signed By: 10/10/211951Reg[facility] Hospital Cleveland WestXR ANKLE LEFT 3+ VIEWS (STANDARD)on 73-37-3911CM ANKLE LEFT 3+ VIEWS (STANDARD)EXAMINATION: XR ANKLE [...] bodies. IMPRESSION: No obvious fractures or dislocations. [facility] Workstation ID: [id number] Dictated by: LOULOU TREVINO on FriJul 29, 2021 8:55:54 PM EST Transcribed by: DARYA SCHILLING on FriJul 29, 2021 8:57:24 PM EST Finalized by: LOULOU TREVINO on FriJul 29, 2021 10:03:27 PM [facility] DaytonComment on above:Order Comment: Injury/Trauma or Illness?:Injury/Trauma How long have you had these symptoms (acute/chronic)?:Acute Reason for exam?:pain History of cancer?:u Surgeries, chemotherapy, or radiation?:u Type of Exam?:Initial Mechanism of injury?:fall Vital Signs Date TimeVital SignValuePerforming VqzwkanasNmneeerc81-85-8143 15:33-0400Body mass index (BMI) [Ratio]27.6 kg/m2Danya Najera PA Work Phone: [facility]wnVfgypnlojd41-90-3758 15:33-0400Body .56 kgDanya Najera PA Work Phone: [facility] LawnRolbzjvydk95-16-1473 15:33-0400Diastolic blood pkfvifzc98 mm[Hg]Danya Laresey PA Work Phone: [facility] LawnGspsevzeys65-78-9769 15:33-0400Systolic blood zjpurhfm559 mm[Hg]Danya Najera PA Work Phone: [facility] LawnSestbzazal34-86-5785 17:14-0400Body eqsmee834.91 Bartisa Aichholz BARK SPUDDER-C Work Phone: [phone]10-13-2025 17:14-0400 Body mass index (BMI) [Ratio]27.3 kg/m2Lisa Aichholz BARK SPUDDER-C Work Phone: [phone]10-13-2025 17:14-0400 Body aogwktshomm10.9 [degF]Margarette Aichholz BARK SP[employer]DER-C Work Phone: [phone]10-13-2025 17:14-0400 Body .15 kgLisa Aichholz BARK SPUDDER-C Work Phone: [phone] [place], [place] 501[address]10-13-2025 17:14-0400 Diastolic blood fqkofjyz06 mm[Hg]Margarette Aichholz BARK SP[employer]-C Work Phone: [phone] [place], [place] 5014210-13-2025 17:14-0400 Heart rate80 /minLisa Aichholz BARK SPUDDER-C Work Phone: 1([phone])067-[address] [place], [place] 4569310-13-2025 17:14-0400 Respiratory rate20 /minLisa Aichholz BARK SPUDDER-C Work Phone: [phone] [place], [place] 45[address]310-13-2025 17:14-0400 SaO2% (BldA) [Mass fraction]93 %Margarette Estevez BARK SPUDDER-C Work Phone: [facility]10-13-2025 17:14-0400 Systolic blood thomtipx663 mm[Hg]Margarette Estevez BARK SPUDDER-C Work Phone: [facility]08-11-2025 18:14-0400 Body mass index (BMI) [Ratio]28.18 kg/m2Margarette Estevez BARK SPUDDER Work Phone: [facility] LawnPjfhgorrox79-64-4113 18:14-0400Body temperature 97.81 [degF]Margarette Estevez BARK SPUDDER Work Phone: [facility] LawnJxgmrwnhhv59-34-5988 18:14-0400Body hjkpic38.2 kg Margarette Estevez BARK SPUDDER Work Phone: [facility] LawnOiqtdjdsvr15-57-2454 18:14-0400Diastolic blood xgacndzk86 mm[Hg]Margarette Estevez BARK SPUDDER Work Phone: [facility] LawnKsmuclkkzc89-82-8240 18:14-0400Heart rate78 /min Margarette Estevez BARK SPUDDER Work Phone: [facility] LawnAslypdtyvq49-36-5017 18:14-0400Respiratory rate16 /minLisa Estevez BARK SPUDDER Work Phone: [facility] LawnPhrcwvqfnc07-89-2084 18:14-6856UyC2% (BldA) [Mass fraction]96 %Margarette Estevez BARK SPUDDER Work Phone: [facility] LawnQfnzdsssxl71-07-9431 18:14-0400Systolic blood vixqiuug459 mm[Hg]Margarette Estevez BARK SPUDDER Work Phone: [facility] LawnBsemncsgsz50-74-9285 17:55-0400Body mass index (BMI) [Ratio]29.02 kg/m2Margarette Estevez BARK SPUDDER Work Phone: [facility] LawnYgwjvupqtx86-78-6779 17:55-0400Body temperature 98.49 [degF]Margarette Aritawesley BARK SPUDDER Work Phone: [facility] LawnNfokhsdabg16-62-0049 17:55-0400Body rnstji41.56 kgMargarette Estevez BARK SPUDDER Work Phone: [facility] LawnZwqwixqmcu71-40-7601 17:55-0400Diastolic blood dlzooyui20 mm[Hg]Margarette Aritaz BARK SPUDDER Work Phone: [facility] LawnMvtymbbajq90-50-3813 17:55-0400Heart rate63 /min Margarette Estevez BARK SPUDDER Work Phone: [facility] LawnIswjbvmyng06-66-8166 17:55-0400Respiratory rate18 /minMargarette Estevez BARK SPUDDER Work Phone: [facility] LawnEywldwcuom33-11-5658 17:55-7288ZxD2% (BldA) [Mass fraction]99 %Margarette Aritawesley BARK SPUDDER Work Phone: [facility] LawnAgjjlyvwgi77-66-7606 17:55-0400Systolic blood cbqnibfx922 mm[Hg]Margarette Estevez BARK SPUDDER Work Phone: [facility] LawnPnwnogtoms59-91-5296 15:54-0400Body ytoosh759.91 cmAalcira Manning MD Work Phone: [facility]06-10-2025 15:54-0400 Body mass index (BMI) [Ratio]28.9 kg/o1SrztftjrknoChinmay Manning MD Work Phone: [facility]06-10-2025 15:54-0400 Body rijoun85.55 kgChinmay Manning MD Work Phone: [facility]06-10-2025 15:54-0400 Diastolic blood mm[Hg]Chinmay Manning MD Work Phone: [facility]06-10-2025 15:54-0400 Heart rate71 /minChinmay Manning MD Work Phone: [facility]06-10-2025 15:54-0400 Respiratory rate18 /minChinmay Manning MD Work Phone: [facility]06-10-2025 15:54-0400 SaO2% (BldA) [Mass fraction]97 %Chinmay Manning MD Work Phone: [facility]06-10-2025 15:54-0400 Systolic blood mxhyuevf454 mm[Hg]Chinmay Manning MD Work Phone: [facility]03-12-2025 15:46-0400 Body mass index (BMI) [Ratio]31.15 kg/m2Lisa Lylaz BARK SPUDDER Work Phone: [facility] LawnKtaouoftad91-34-0450 15:46-0400Body temperature 98.4 [degF]Margarette Herb BARK SPUDDER Work Phone: [facility] LawnXxbiffzold54-54-2242 15:46-0400Body pmgodz91.54 kgLisa Mikalhholz BARK SPUDDER Work Phone: [facility] LawnOrkzquxgjy92-10-6012 15:46-0400Diastolic blood ihyubtns80 mm[Hg]Margarette Mikalhholz BARK SPUDDER Work Phone: [facility] LawnQewmlrbrxr29-54-3308 15:46-0400Heart rate77 /min Margarette Mikalhholz BARK SPUDDER Work Phone: [place] [address]Xleynmdpjd70-06-0333 15:46-0400Respiratory rate20 /minLisa Mikalhholz BARK SPUDDER Work Phone: [place] [address]Fawtwdtsdo35-45-3250 15:46-5199WwD4% (BldA) [Mass fraction]97 %Margarette Mikalhholz BARK SPUDDER Work Phone: [place] [address]Axbyrkcshe52-03-4422 15:46-0400Systolic blood ldbqypyz313 mm[Hg]Margarette Mikalhholz BARK SPUDDER Work Phone: [facility] LawnOgxfycaytd33-45-6672 15:51-0500Body .64 cmAalcira Manning MD Work Phone: [phone]83[facility]02-04-2025 15:51-0500 Body mass index (BMI) [Ratio]32 kg/g7NjmiueawntyChinmay Manning MD Work Phone: [phone]95[facility]02-04-2025 15:51-0500 Body qxgssogozmi12.1 [degF]Chinmay Manning MD Work Phone: [phone] [place], [place] 26[address]802-04-2025 15:51-0500 Body .92 kgChinmay Manning MD Work Phone: [phone])[address] [place], [place] 26[address]802-04-2025 15:51-0500 Diastolic blood fwkwqand67 mm[Hg]Chinmay Manning MD Work Phone: [phone] [place], [place] 1462602-04-2025 15:51-0500 Heart rate80 /minChinmay Manning MD Work Phone: [phone]02-04-2025 15:51-0500 Respiratory rate18 /minChinmay Manning MD Work Phone: [phone])[address] [place], [place] 26[address]802-04-2025 15:51-0500 SaO2% (BldA) [Mass fraction]99 %Chinmay Manning MD Work Phone: [phone]-[facility]02-04-2025 15:51-0500 Systolic blood pzbldniy268 mm[Hg]Chinmay Manning MD Work Phone: [phone])[address]12-11-2024 16:55-0500 Body gicmow397.6 cmRosita Garza NP Work Phone: [facility] LawnRcdvhwclvv03-82-2141 16:55-0500Body mass index (BMI) [Ratio]31.64 kg/m3EloymbamRosita Armijopatrick BARK SPUDDER Work Phone: [facility] LawnLgvgmufaqi74-25-2432 16:55-0500Body temperature 97.7 [degF]Rosita Armijopatrick BARK SPUDDER Work Phone: [facility] LawnYtsznwvrbj53-22-9770 16:55-0500Body vyywhg56.91 kgRosita Berrytrick BARK SPUDDER Work Phone: [facility] LawnSeifhbykyd06-67-3852 16:55-0500Diastolic blood fsolalmd97 mm[Hg]Rosita Armijopatrick BARK SPUDDER Work Phone: [facility] LawnLgugkdxlxt25-60-5218 16:55-0500Heart vcyd108 /min Rosita Berrytrick BARK SPUDDER Work Phone: [facility] LawnTtdmtbbcdm71-18-8798 16:55-0500Respiratory rate16 /minRosita Berrytrick BARK SPUDDER Work Phone: [facility] LawnPspxkvkdir61-08-6309 16:55-0228ZfE6% (BldA) [Mass fraction]97 %Rosita Berrytrick BARK SPUDDER Work Phone: [facility] LawnFkuexhbnsu68-00-9915 16:55-0500Systolic blood eoafjobq921 mm[Hg]Rosita Berrytrick BARK SPUDDER Work Phone: noDeaconess Incarnate Word Health SystemGwizqxneaq12-71-4501 15:13-0400Body mass index (BMI) [Ratio]31.13 kg/m2Danya CHATTERJEE Work Phone: noDeaconess Incarnate Word Health SystemFmaybwixfx38-08-6969 15:13-0400Body bwobkw70.81 kgDanya CHATTERJEE Work Phone: [place] [address]Irgriirulk11-85-2567 15:13-0400Diastolic blood ffuseabz79 mm[Hg]Danya CHATTERJEE Work Phone: [place] [address]Jzdjplzdbs18-44-6146 15:13-0400Systolic blood ncrmerrq927 mm[Hg]Danya CHATTERJEE Work Phone: noDeaconess Inc[facility] Word Health SystemPnrpdnorev23-68-4255 16:55-0400Body usqjlq865.9 cmBrittmandy Garza BARK SPUDDER Work Phone: [facility] LawnAxfqahbroz66-30-8919 16:55-0400Body mass index (BMI) [Ratio]31.32 kg/a1Mxhzonky Garza BARK SPUDDER Work Phone: [facility] LawnBtliovltsx58-95-3949 16:55-0400Body temperature 96.8 [degF]Rosita Garza BARK SPUDDER Work Phone: [facility] LawnJtjguasvwg65-33-1718 16:55-0400Body hsfais38.36 kgBrittmandy Garza BARK SPUDDER Work Phone: [facility] LawnIduadxtmha36-06-9976 16:55-0400Diastolic blood mm[Hg]Rosita Garza BARK SPUDDER Work Phone: [facility] LawnSewsoqrlgv80-49-1621 16:55-0400Heart fhwy796 /min Rosita Garza BARK SPUDDER Work Phone: [facility] LawnComment on above:96% R713-77-5003 16:55-0400Systolic blood stlnfyzl245 mm[Hg]Rosita Garza BARK SPUDDER Work Phone: [facility] LawnBalnyylyaz29-88-4372 16:24-0400Body .91 cmMD Chinmay Manning Work Phone: [facility]09-04-2024 16:24-0400 Body mass index (BMI) [Ratio]31.8 kg/m2MD Chinmay Manning Work Phone: [facility]09-04-2024 16:24-0400 Body bsulepgzjzt32.8 [degF]MD Chinmay Manning Work Phone: [facility]09-04-2024 16:24-0400 Body obrajf76.88 kgMD Chinmay Manning Work Phone: [phone]09-04-2024 16:24-0400 Diastolic blood dewnexkk88 mm[Hg]MD Chinmay Manning Work Phone: [phone]09-04-2024 16:24-0400 Heart rate97 /minMD Chinmay Manning Work Phone: [phone])401[facility]82[facility]09-04-2024 16:24-0400 Respiratory rate18 /minMD Chinmay Manning Work Phone: [phone]23[facility]09-04-2024 16:24-0400 SaO2% (BldA) [Mass fraction]94 %MD Chinmay Manning Work Phone: [phone]35[facility]09-04-2024 16:24-0400 Systolic blood ecmlfhfu808 mm[Hg]MD Chinmay Manning Work Phone: [phone]32[facility]05-28-2024 15:25-0400 Body ledzuq560.91 cmMD Chinmay Manning Work Phone: [phone]35[facility]05-28-2024 15:25-0400 Body mass index (BMI) [Ratio]32.3 kg/m2MD Chinmay Manning Work Phone: [phone]99[facility]05-28-2024 15:25-0400 Body peaxtnixgqn53.3 [degF]MD Chinmay Manning Work Phone: [phone]93[facility]05-28-2024 15:25-0400 Body ivjsmb71.24 kgMD Chinmay Manning Work Phone: [phone] InstituteOhio[facility]2024 15:25-0400 Diastolic blood vbooasgr18 mm[Hg]MD Chinmay Manning Work Phone: [facility]05-28-2024 15:25-0400 Heart rmvb043 /minMD Chinmay Manning Work Phone: [facility]05-28-2024 15:25-0400 Respiratory rate16 /minMD Chinmay Manning Work Phone: [facility]05-28-2024 15:25-0400 SaO2% (BldA) [Mass fraction]96 %MD Chinmay Manning Work Phone: [facility]05-28-2024 15:25-0400 Systolic blood rsfiyzrc428 mm[Hg]MD Chinmay Manning Work Phone: [facility]07-07-2022 16:30-0400 Body epqmeq529.91 [employer] Other [employer] Other 07-07-2022 16:30-0400Body mass index (BMI) [Ratio] 21.62 kg/a9Yjdrsbwm [employer] Other [employer] Other 07-07-2022 16:30-0400Body xyjfaz58.69 kgLawrence [employer] Other [employer] Other 04-05-2022 16:45-0400Body dfrwru920.91 [employer] Other [employer] Other 04-05-2022 16:45-0400Body mass index (BMI) [Ratio] 20.98 kg/g2Ugcsrosv [employer] Other [employer] Other 04-05-2022 16:45-0400Body pvyovr94.88 kgLawrence [employer] Other [employer] Other 12-30-2021 11:05-0500Body svhjve380.91 cmAmber Susienty Other [employer] Other 12-30-2021 11:05-0500Body zszbfilyeoq18.5 [degF]Christiana Ginty Other [employer] Other 12-30-2021 11:05-0500Diastolic blood mm[Hg]Christiana Ginty Other [employer] Other 12-30-2021 11:05-0500Respiratory rate18 /minAmber Ginty Other [employer] Other 12-30-2021 11:05-0948MuZ7% (BldA) [Mass fraction]98 % Christiana Ginty Other [employer] Other 12-30-2021 11:05-0500Systolic blood ybqmdhhw920 mm[Hg] Christiana Ginty Other [employer] Other 12-22-2021 12:00-0500Body ctsppo558.91 cmRobert [employer] Other [employer] Other 12-22-2021 12:00-0500Body mass index (BMI) [Ratio] 17.88 kg/n6Dkauxw [employer] Other [employer] Other 12-22-2021 12:00-0500Body xnsamx25.03 kgRobert [employer] Other [employer] Other Encounters Encounter DateEncounter TypeCare ProviderFacilityStart: 05-20-2025 End: 07-75-1884Rxwdrbcxa Result EncounterDanya Najera SHENA Work Phone: noms External Department UnsolicitedStart: 05-20-2025 End: 33-94-1928Jqbfwgeqz Result EncounterDanya Najera SHENA Work Phone: noms External Department UnsolicitedStart: 05-02-2025 End: 98-07-1639Exeeion encounter procedureDanya Najera SHENA Work Phone: noms HealthcareStart: 05-02-2025 End: 79-95-6072Kltaxsgu preventive med est patient 40-64yrsAmy Curry SHENA Work Phone: noms [place] OBGYNComment on above:Well woman exam with routine gynecological exam; H/O: hysterectomy; Encounter for screening mammogram for malignant neoplasm of breast; Hormone imbalanceStart: 05-02-2025 End: 33-50-0356xownovwzndEOE CURRYNot AvailableStart: 05-02-2025 End: 81-09-7426Mnxypw flowsheetDanya Najera SHENA Work Phone: [facility] [place] OBGYNStart: 05-02-2025 End: 17-45-5052Rmdjdb flowsheetDanya Najera SHENA Work Phone: [facility] [place] OBGYNStart: 05-02-2025 End: 32-97-8371Enniitawc Result EncounterDanya Najera SHENA Work Phone: noms External Department UnsolicitedStart: 04-25-2025 End: 97-42-4800katjlpazuxGsvn J Aichholz NP-C Work Phone: [facility] Work Phone: Start: 04-25-2025 End: 07-64-2371Wabkfrn encounter procedureMargarette CRUZ-[facility] Jesse Work Phone: Start: 02-21-2025 End: 23-94-9136Uuprnt outpatient visit 25 minutesLisa Aichholz BARK SPUDDER Work Phone: NOS[facility] CWM FMComment on above:Primary hypertension (Primary Dx); Chronic kidney disease, stage 3b (CMS-HCC); Class 1 obesity due to excess calories with serious comorbidity in adult, unspecified BMI; Cigarette nicotine dependence without complication; Migraine without aura and without status migrainosus, not intractable ; Bipolar 2 disorder (HCC); Overweight (BMI 25.0-29.9); Bipolar II disorder (HCC)Start: 02-21-2025 End: 24-66-0046mzpgycouidTEAK AICHHOLZNot AvailableStart: 02-21-2025 End: 91-33-8029Vqvzxh flowsheetLisa Aichholz BARK SPUDDER Work Phone: NOMS CWM FMStart: 02-21-2025 End: 42-20-4479Bzashw flowsheetLisa Aichholz BARK SPUDDER Work Phone: N[facility] CWM FMStart: 02-09-2025 End: 96-31-3781XrtzkySmmw Aichholz BARK SPUDDER Work Phone: NOMS CWM FMComment on above:Cigarette nicotine dependence without complicationStart: 01-13-2025 End: 81-70-8016BnoxghGugo Aichholz BARK SPUDDER Work Phone: NOLS CWM FMComment on above:Nausea and vomiting, unspecified vomiting type (Primary Dx)Start: 12-22-2024 End: 61-91-9567Nzzbyl outpatient visit 25 minutesLisa Aichholz BARK SPUDDER Work Phone: NOXV CWM FMComment on above:Primary hypertension (Primary Dx); Chronic kidney disease, stage 3b (HCC) (CMS/HCC); Class 1 obesity due to excess calories with serious comorbidity in adult, unspecified BMI; Anxiety; Bipolar II disorder (HCC); Cigarette nicotine dependence without complication; Migraine without aura and without status migrainosus, not intractable ; Bipolar 2 disorder (HCC)Start: 12-22-2024 End: 32-29-7955mzfdomazqoLPQE AICHSilva AvailableStart: 12-21-2024 End: 32-27-9386pruoahmevhMedunzmyfoz Abdelaziz MD Work Phone: [facility] Work Phone: Start: 12-21-2024 End: 60-18-5714Nwtsqqh encounter procedureChinmay Manning MD Work Phone: [facility] Jesse Work Phone: Start: 12-14-2024 End: 95-64-3811Hvtrvfzwl Result EncounterGeneric External Data ProviderNOMS External Department UnsolicitedStart: 12-14-2024 End: 39-01-9692Pedepyswa Result EncounterGeneric External Data ProviderNOMS External Department UnsolicitedStart: 27-79-8820Fkh-patient / Non-visit Chinmay Manning MD Work Phone: [facility] Work Phone: Start: 24-88-3524Tgoswiwshb RecurringChinmay Manning MD Work Phone: [facility] CredibleStart: 09-22-2024 End: 45-54-5145Odbjrq outpatient visit 25 minutesLisa Herb BARK SPUDDER Work Phone: noms CW FMComment on above:Primary [...] spasm; Bipolar 2 disorder (CMS/HCC)Start: 09-22-2024 End: 29-63-6406htscublhmnIKVG AICHHOLZNot AvailableStart: 09-22-2024 End: 94-54-1361Kqgqqb flowsheetLisa Aichholz BARK SPUDDER Work Phone: noms CWM FMStart: 09-22-2024 End: 96-56-5620Rnboyv flowsheetLisa Estevez BARK SPUDDER Work Phone: noms CWM FMStart: 08-17-2024 End: 37-70-0134sruvvwivbdExlnfjthpvo Abdelaziz MD Work Phone: [facility] Work Phone: Start: 08-17-2024 End: 76-58-7639Hhdmldg encounter procedureChinmay Manning MD Work Phone: [facility] [place] Work Phone: Start: 26-20-4857Azh-patient / Non-visitChinmay Manning MD Work Phone: [facility] Work Phone: Start: 33-13-4027Jcrbwyyfvf RecurringChinmay Manning MD Work Phone: [facility] CredibleStart: 06-23-2024 End: 22-61-9227Dhyyar outpatient visit 15 Angelia Garza BARK SPUDDER Work Phone: noms CWM FMComment on above:Primary hypertension (CMS/HCC) (Primary Dx); Stage 3a chronic kidney disease (HCC) (CMS/HCC); Class 1 obesity due to excess calories without serious comorbidity with body mass index (BMI) of 33.0 to 33.9 in adult; Screening for hyperlipidemia; Tobacco dependency; Bipolar 2 disorder (CMS/HCC); Migraine without aura and without status migrainosus, not intractable (CMS/HCC); Back spasmStart: 06-23-2024 End: 01-92-6047qtqcgsfwjtIRMTHFCL FITZPATRICKNot AvailableStart: 06-23-2024 End: 66-05-1684Jramye flowsheetBrittany Garza BARK SPUDDER Work Phone: noms CWM FMStart: 06-23-2024 End: 70-38-3650Srdhvb flowsheetBrittany Garza BARK SPUDDER Work Phone: noms CW FMStart: 05-27-2024 End: 11-57-2744Azqhgpqdx encounterDanya CHATTERJEE Work Phone: noms BCP OBStart: 05-15-2024 End: 52-24-0287Oekxykusp Result EncounterDanya CHATTERJEE Work Phone: noms External Department UnsolicitedStart: 05-15-2024 End: 38-79-8923Fnqvwiiak Result EncounterAmy Curry CHATTERJEE Work Phone: noms External Department UnsolicitedStart: 05-14-2024 End: 10-95-2680Wklqkrqqx Result EncounterAmy Curry CHATTERJEE Work Phone: noms External Department UnsolicitedStart: 05-14-2024 End: 73-27-7801Cawnpwszj Result EncounterDanya CHATTERJEE Work Phone: noms External Department UnsolicitedStart: 04-28-2024 End: 96-79-7707Fqtsyfr encounter procedureDanya CHATTERJEE Work Phone: [facility] Work Phone: Start: 04-28-2024 End: 55-79-0014Lsajtgpl preventive med est patient 40-64yrsAmy Curry CHATTERJEE Work Phone: noms BCP OBComment on above:Well woman exam with routine gynecological exam; Breast cancer screening by mammogram; Postmenopausal state; Hormone imbalanceStart: 04-28-2024 End: 13-34-6244Gvisqw flowsheetDanya CHATTERJEE Work Phone: noms BCP OBStart: 04-28-2024 End: 36-76-7795Jfazyi flowsRobert CHATTERJEE Work Phone: noms BCP OBStart: 04-28-2024 End: 00-09-6726Wnvzpsdoc Result EncounterDanya CHATTERJEE Work Phone: noms External Department UnsolicitedStart: 03-24-2024 End: 41-54-6621Kzsjio outpatient visit 15 minutesBrquynh Garza BARK SPUDDER Work Phone: noms CWM FMComment on above:Primary hypertension (CMS/HCC) (Primary Dx); Stage 3a chronic kidney disease (HCC) (CMS/HCC); Class 1 obesity due to excess calories without serious comorbidity with body mass index (BMI) of 33.0 to 33.9 in adult; Tobacco dependency; Bipolar 2 disorder (CMS/HCC)Start: 03-24-2024 End: 44-92-0090Vsnxjg flowsheetRosita Garza BARK SPUDDER Work Phone: noms CWM FMStart: 03-24-2024 End: 36-98-6104Vrnvye flowsheetRosita Garza BARK SPUDDER Work Phone: noms CWM FMStart: 03-17-2024 End: 87-82-7729hyspbntyclACMD Chinmay Manning Work Phone: [facility] Work Phone: Start: 03-17-2024 End: 59-58-9492Ainztuj encounter procedureMD Chinmay Manning Work Phone: [facility] Nephrology [place] Work Phone: Start: 77-53-2250Ygq-patient / Non-visitMD Chinmay Manning Work Phone: [facility] Work Phone: Start: 29-52-2486Eyfmdgnoyq RecurringMD Chinmay Manning Work Phone: [facility] CredibleStart: 12-09-2023 End: 23-55-0502yxrtghxfnbVWMD Chinmay Manning Work Phone: [facility] Work Phone: Start: 12-09-2023 End: 03-55-7992Tjviyts encounter procedureMD Chinmay Manning Work Phone: [facility] Nephrology Jesse Work Phone: Start: 45-30-6338Lhdyzowqjs RecurringMD Chinmay Manning Work Phone: [facility] CredibleStart: 08-25-2023 End: 71-58-0048Dbijlcnvv Result EncounterSmary Hernandes MD Work Phone: noms External Department UnsolicitedStart: 08-25-2023 End: 10-21-8895Mflbrusjn Result EncounterSmary Hernandes MD Work Phone: noms External Department UnsolicitedStart: 08-22-2023 End: 58-58-0760hgrzlsngxwLgbeu Jenn Other [place] [employer] Other Start: 51-20-7831Lnorhfyoa Result EncounterSmary Hernandes MD Work Phone: noms External Department UnsolicitedStart: 08-22-2023 Clinisync Result EncounterSmary Hernandes MD Work Phone: noms External Department UnsolicitedStart: 08-22-2023 Telephone encounterAbdmariano TorresrFPG Urgent Care ClydeStart: 06-27-2023 End: 85-24-1195Anaiqpakj Result EncounterSmary Hernandes MD Work Phone: noms External Department UnsolicitedStart: 06-27-2023 End: 01-30-7155Onwhkljvs Result EncounterSmary Fawwad MD Work Phone: noms External Department UnsolicitedStart: 07-02-2022 End: 90-64-7447neejdtsmjpPVNTJBBN CULLENFacility:O3Kreby: 06-07-2022 End: 01-95-0188zbjkayeygfNX ETHAN HOUSEFacility:I0Uewrw: 01-28-2022 End: 64-37-8866wcttlbldxgDdihfvow Zaira Other [employer] Other Start: 57-38-5600Chnbqoscz encounterLawrence Zaira [facility] GastroenterologyStart: 01-17-2022 End: 47-47-8134sxbgsocweeUeeuqwyg Zaira Other no[employer]elsima [employer] Other Start: 14-46-2714Mvslol outpatient visit 15 minutes Bahman MarinelliG GastroenterologyStart: 11-09-2021 End: 30-31-1156tmzwwvupkdCrkorahq Zaira Other [employer] Other Start: 19-39-6079Qktdfvrib encounterLawrence Zaira [facility] GastroenterologyStart: 10-16-2021 End: 18-85-0349eotnivesjdWctemwjj Zaira Other [employer] Other Start: 50-88-3005Tbyrgt outpatient visit 15 minutes Bahman MarinelliG GastroenterologyStart: 10-10-2021 End: 00-25-7302Ytiedlbmz department patient visitCharles HouseFacility:[facility] Hospitaltart: 07-28-2021 End: 23-31-2616Zcnwqjehhi and management of [facility] Medical Centertart: 07-12-2021 End: 62-64-1065xhadgwgwqrSaoqj Ginty Other [facility] [employer] Other Start: 48-48-1689Upzkkg outpatient visit 15 minutes Christiana GintyFPG Urgent Care ClydeStart: 07-04-2021 End: 37-27-6731clgjjooonzFzutvk Chinedu II Other [facility] [employer] Other Start: 08-16-2532Jemzgs outpatient new 30 minutes Justin Chinedu IIFPG [facility] Procedures DateProcedureProcedure DetailPerforming ClinicianStart: 45-11-2994IF TOMOSYNTHESIS SCREENING Anjum CHATTERJEE Work Phone: Start: 66-97-9728YNG,APTIMA HPV,AGE GDLNDanya CHATTERJEE Work Phone: Start: 79-25-5119OqrlsfceprqAwsh Herb BARK SPUDDER Work Phone: Start: 83-36-8826SPXP CBC WITH PLATELET NO DIFFERENTIALGeneric External Data ProviderStart: 04-54-7083AKO URINALYSISGeneric External Data ProviderStart: 13-47-1805YK DEXA AXIAL SKELETONDanya CHATTERJEE Work Phone: Start: 81-87-6792UB TOMOSYNTHESIS SCREENING Anjum CHATTERJEE Work Phone: Start: 68-26-9757UqhpnqsmojlLfs Ramey PA Work Phone: Start: 91-80-1386TEO,APTIMA HPV,AGE Leilani CHATTERJEE Work Phone: Start: 67-72-1570Wkdnhkvytia observation [Identifier] in Cervix by Cyto stainMargarette Estevez BARK SPUDDER Work Phone: Start: 65-94-1964UJK TEST, EXTERNALCorey Arminda DO Work Phone: Start: 66-75-3885Zak abdomen w/o & w/contrast material Shaikh Cecilio WALKER Work Phone: Start: 66-35-8679BTG Hossein Hernandes MD Work Phone: Start: 48-12-6056XOB Julia Hernandes MD Work Phone: Start: 52-47-1878WZ RENAL Steve Hernandes MD Work Phone: H/O: hysterectomyH/O: hysterectomyDanya CHATTERJEE Work Phone: Plan of Treatment DateCare ActivityDetailAuthorStart: 98-97-1502Wcbfzmtta for malignant neoplasm of colonNOMS HealthcareStart: 54-72-7061Huuynbotf for malignant neoplasm of cervixNOMS HealthcareStart: 05-11-2026 End: 24-53-2427Meoutvh encounter tvyclzokm48/29/2026 3:00 PM EDT Procedure Visit NOMDiana RIOS [address] [place] [phone] Danya Najera PA [address] [place] [address] NOMDiana Madrigal OBGYNStart: 05-14-2025 Screening for malignant neoplasm of breastMammogramNOMS HealthcareStart: 05-02-2025 End: 21-88-3076Wycuofl encounter procedureNOMS BCP OBComment on above:Arrived Start: 05-02-2025 End: 54-37-2049ZC Breast - bilateral ScreeningBilateral screening mammogram Imaging Routine Encounter for screening mammogram for malignant neoplasm of breast Expected: 05/02/2025 (Approximate), Expires: 07/02/2026[facility] Work Phone: comment on above:Expected: 05/02/2025 (Approximate), Expires: 07/02/2026Start: 04-25-2025 End: 47-74-1477Zhxjaix encounter /13/2025 5:00 PM EDT Office Visit NOMS [facility] [address] [place] [phone] Margarette Estevez NP [address] [place] [address] [facility] FMStart: 48-74-5325Fjvmgezpy vaccinationNOKY HealthcareStart: 02-21-2025 End: 40-59-6480Fanvzvc encounter procedureNOMCALESTER REGION[facility] FMComment on above:Primary hypertension (Primary Dx); Chronic kidney disease, stage 3b (CMS-HCC); Class 1 obesity due to excess calories with serious comorbidity in adult, unspecified BMI; Cigarette nicotine dependence without complicationStart: 12-22-2024 End: 49-77-5407Jsjzfds encounter wakvevlzg45/11/2025 6:00 PM EDT Office Visit NOMS [facility] [address] [place] [address] Margarette Estevez, JAIME [address] [place] [phone] [facility] FMStart: 65-27-7937Qtygqnhzv vaccinationInfluenza Vaccine (#1)[facility] HealthcareComment on above:Postponed from 03/14/2024 (Patient Refused)Start: 09-22-2024 End: 63-42-9353Hjemosn encounter omchgutli88/12/2025 3:20 PM EDT [facility] [address] [place] [address] Margarette Estevez, BARK SPUDDER [address] [place] [phone] Primary hypertension (CMS/HCC) (Primary Dx); Bipolar II [...] than peanuts); Mixed hyperlipidemia (CMS/HCC)Start: 06-23-2024 End: 42-38-9992Ucezhls encounter procedureNOMS CW FMComment on above:Arrived Start: 04-28-2024 End: 24-70-5478Ocsnsls encounter ezloupuxr68/16/2024 3:00 PM EDT Office Visit NOMS [facility] OB [address] [place] [address] Danya Najera PA [address] [place] [place] [address] ArrivedNOMS [facility] OBComment on above:ArrivedStart: 04-28-2024 End: 79-60-2689QQX Skeletal system Views for bone densityDEXA bone density Imaging Routine Postmenopausal state Expected: 04/28/2024 (Approximate), Expires:04/28/2025NOKY HealthcareComment on above:Expected: 04/28/2024 (Approximate), Expires: 04/28/2025Start: 04-28-2024 End: 38-86-7729SJ Breast - bilateral ScreeningBilateral screening mammogram Imaging Routine Breast cancer screening by mammogram Expected: 04/28/2024, Expires: 06/28/2025[facility] Healthcare Work Phone: comment on above:Expected: 04/28/2024, Expires: 06/28/2025Start: 03-24-2024 End: 66-81-0838Terwzcl encounter efrklpiyd30/11/2024 5:00 PM EDT Office Visit NOMS CWM FM [address] [place] [phone] Rosita Garza NP [address] [place] [phone] ArrivedNOKY CWM FMComment on above:ArrivedStart: 03-14-2024 Influenza vaccinationInfluenza Vaccine (#1)[facility] HealthcareStart: 11-17-2023 End: 52-52-4501Kyvnbls encounter alniuycxz34/06/2024 5:00 PM EDT Office Visit N[facility] IM [address] [place] [phone] Shaikh Hernandes MD [address] [place] [phone] NOMS CW IMStart: 17-04-6236Zeyzvvzyf for malignant neoplasm of breastMammogramNOMS HealthcareComment on above:Postponed from 2003 (Insurance / Financial)Start: 32-43-8165Goppmbidp vaccinationInfluenza Vaccine (#1)[facility] HealthcareStart: 95-99-2792Equnapfbi for malignant neoplasm of breast MammogramNOMS HealthcareStart: 28-03-3498Teydsbiqk for malignant neoplasm of cervixNOMS HealthcareStart: 53-26-7363Jhzdbwtzh for malignant neoplasm of cervix Pap SmearNOMS HealthcareStart: 05-27-1964Medicare Annual Wellness (AWV)Medicare Annual Wellness (AWV)[facility] HealthcareStart: 75-13-4639Rizlzjmld for malignant neoplasm of colonNOMS HealthcareRenal function 1999 panel - Serum or Plasma [facility] 1999 panel - Serum or Plasma [facility] HospitalRenal function 1999 panel - Serum or Plasma [facility] HospitalRenal function 1999 panel - Serum or Plasma [facility] HospitalTHIN PREP TIS PAP AND HR HPV DNATHIN PREP TIS PAP AND HR HPV DNA Pathology and Cytology Routine Well woman exam with routine gynecological exam Ordered: 04/28/2024NOKY HealthcareComment on above:Ordered: 04/28/2024THIN PREP TIS PAP AND HR HPV DNATHIN PREP TIS PAP AND HR HPV DNA Pathology and Cytology Routine Well woman exam with routine gynecological exam H/O: hysterectomy Ordered: 05/02/2025[facility] HealthcareComment on above:Ordered: 05/02/2025[facility] Immunizations Immunization DateImmunizationNotesCare OewrnovsZuabdyca54-43-4522jiogbtf and diphtheria toxoids, adsorbed, preservative free, for adult use (5 Lf of tetanus toxoid and 2 Lf of diphtheria toxoid)Christiana Lazaro Other [facility] [employer] Other Payers DatePayer CategoryPayerPolicy [id number] [place] Blue Shield [id number] [id number] 2022Medicare [id number] 2022Medicare (Managed Care) [id number] [id number] 2.16.840.1.020118.3.57[id number] 2.16.840.1.335254.3.57[id number] 2.16.840.1.139701.3.57[id number] 2.16.840.1.868042.3.57[id number] 2..840.1.049225.3.579.[id number] 2..840.1.207777.3.579.2.[id number] 2.0.1.976850.3.57[id number] 2.0.1.231534.3.579.2.1259 [id number] [id number] [id number]-paySelf Pay [id number] Social History DateTypeDetailFacilityUnknown if ever smokedLos [place] [employer] Other Start: 08-18-2023 End: 93-07-8299Bdg Assigned At [facility] [employer] Other Start: 07-14-1983 End: 98-82-1307Imaigrx smoking status NHISSmokes tobacco dailyNOMS Healthcare Start: 70-95-6451Iejioig of tobacco useCigarette SmokerNOMS HealthcareStart: 06-16-2023 End: 03-59-2786Juxerngbhi smoked current (pack per day) - Reported0.5NOMS HealthcareStart: 06-16-2023 End: 09-04-3143Rszzjoc use and exposureSmokeless tobacco non-userNOMS Healthcare Start: 08-18-2023 End: 76-70-7131Sbmybvj intakeLifetime non-drinker (finding)[facility] LawnStart: 19-50-4820Nej Assigned At BirthNot on fileLAKEVIEW HOSPITAL HealthcareStart: 12-09-2023 End: 15-66-2822Ysokpdy smoking status NHISSmoker (finding)[facility] Hospitaltart: 11-37-3677Edt Assigned At BirthFemalNewark Hospitaltart: 08-17-2024 End: 24-92-5988CdtKgxkim (finding)[facility] Hospitaltart: 29-66-0252WfvYhnrxpEVJN Healthcare Medical Equipment Procedure CodeEquipment CodeEquipment Original TextEquipment IdentifierDates Capsule endoscopy, for patency of lumen evaluationVideo capsule endoscopy system ()[id number]([id number](21)[id number] FDAStart: 08-16-2019 Functional Status RyahDlvwkifaskGrethsAonktfhb36-20-0070Xjrimgo Health Questionnaire 2 item (PHQ- 2) [Reported][facility] Clinical Notes 04-08-2014 to 05-02-2025 Note Date & BqroFfwuHfcwpiwc39-57-9334 History of Present illness Narrative* SHENA Stubbs [...] [Sulfamethoxazole-Trimethoprim] Bee Pollen Bee Venom Hives [place] Flavoring Agent (Non-Screening) Walnuts Ciprofloxacin Hives Codeine [...] (HCC) 09/22/2024 Chronic kidney disease, stage 3b ([facility]-HCC) 09/22/2024 Cigarette nicotine dependence without complication 09/22/2024 Colon cancer screening 09/22/2024 Mixed hyperlipidemia 09/22/2024 Encounter for screening for lung cancer 09/22/2024 Nausea and vomiting 01/13/2025 Overweight (BMI 25.0-29.9) 02/21/2025 Resolved Ambulatory Problems Diagnosis Date Noted Stage 3a chronic kidney disease ([facility]) 06/16/2023 Tobacco dependency 06/16/2023 Bipolar 2 disorder [...] nursing note reviewed. Exam conducted with a academic affairs vice president present. Vitals: Estimated body mass index is [...] behalf of: SHENA Stubbs documented in this encounterCox Walnut LawnWrumbavuzo72-02-0504 Evaluation note* Diagnosis Primary hypertension- Primary Unspecified essential hypertension Stage 3a chronic kidney disease ([facility]-HCC) Migraine without aura and without status [...] breast Hormone imbalance documented in this encounter [facility] LawnBygfcohgbx11-70-3548 History of Present illness Narrative* Margarette Estevez NP - 02/21/2025 6:47 PM EDTAssociated Problem(s): Bipolar II disorder (HCC) Follow with [facility] * Margarette Estevez NP - 02/21/2025 [...] [Sulfamethoxazole-Trimethoprim] Bee Pollen Bee Venom Hives [place] Flavoring Agent (Non-Screening) Walnuts Ciprofloxacin Hives Codeine [...] of the risks of continued smoking: stroke, [place], all forms of cancer, lung disease, and . Options for quitting smoking include: cold turkey, hypnosis, acupuncture, nicotine replacement meds(gum, lozenges, and patches), Buproprion, and Varenicline. At this time pt is encouraged to evaluate their goals for wanting to quit smoking, and reach out [facility] when ready to start this process Is [...] of the risks of continued smoking: stroke, [place], all forms of cancer, lung disease, and [...] EDTAssociated Problem(s): Chronic kidney disease, stage 3b ([facility]-HCC) Follows with Nephrology Recommend tight blood pressure control Limit nephrotoxic drugs 08/07: cr 1.69 * Margarette Estevze NP - 02/21/2025 6:59 AM EDTAssociated Problem(s): Primary hypertension Please check blood pressure daily and record DASH diet Limit caffeine Take medication as directed Contact office if chest pain, pressure, dizziness, shortness of breath, swelling legs Recommend slow position changes Current meds: losartan documented in this encounterCox Walnut LawnFtajxcuzrl51-16-4084 Instructions* Patient Instructions* Margarette Estevez NP - 02/21/2025 6:00 PM EDT Keep up the great work documented in this encounterCox Walnut LawnVocmilhcef19-80-5553 Evaluation note* Diagnosis Primary hypertension- Primary Unspecified [...] Other bipolar disorders documented in this encounter [facility] LawnAyfeeldisq00-73-4420 Evaluation note* Diagnosis Primary hypertension- Primary Unspecified [...] dependence without complication documented in this encounter [facility] LawnCqxpkoivav94-92-5607 Evaluation note* Diagnosis Primary hypertension- Primary Unspecified [...] vomiting type- Primary documented in this encounter [facility] LawnXvyhyypyfp14-68-3742 History of Present illness Narrative* ALEJANDRO EVANGELISTA - 12/22/2024 6:00 PM EDT Pt has gotten the okay from her counselor and plater production to allow her to go on chantix [...] [Sulfamethoxazole-Trimethoprim] Bee Pollen Bee Venom Hives [place] Flavoring Agent (Non-Screening) Walnuts Ciprofloxacin Hives Codeine [...] psych Bipolar II disorder (HCC) Follow with [facility] Chronic kidney disease, stage 3b (HCC) ([facility]/HCC) Follows with Nephrology Recommend tight blood [...] of the risks of continued smoking: stroke, [place], all forms of cancer, lung disease, and [...] of the risks of continued smoking: stroke, [place], all forms of cancer, lung disease, and [...] Problem(s): Chronic kidney disease, stage 3b (HCC) ([facility]/HCC) Follows with Nephrology Recommend tight blood [...] changes Current meds: losartan documented in this encounterCox Walnut LawnXihjdygjss78-29-7333 Instructions* Patient Instructions* Margarette Estevez NP - [...] office if these occur. documented in this encounterCox Walnut LawnLtexxhhfel15-93-9618 Evaluation note* Diagnosis Primary hypertension- Primary Unspecified [...] Other bipolar disorders documented in this encounter [facility] LawnFbmxwkhdwe92-75-4913 History of Present illness Narrative* aMrgarette Estevez NP - 09/22/2024 5:53 PM EDTAssociated [...] of the risks of continued smoking: stroke, [place], all forms of cancer, lung disease, and [...] changes Current meds: losartan documented in this [facility]03-12-2025 Instructions* Patient Instructions* Margarette Estevez NP - 09/22/2024 3:20 PM EDT No medication changes documented in this [facility]03-12-2025 Evaluation note* Diagnosis Primary hypertension ([facility]/HCC)- Primary Unspecified essential hypertension Stage 3a chronic kidney disease (HCC) ([facility]) Migraine without aura and without status migrainosus, not intractable ([facility]/HCC) Tobacco dependency Tobacco use disorder Primary hypertension ([facility]/HCC)- Primary Unspecified essential hypertension Stage 3a chronic kidney disease (HCC) ([facility]/HCC) Abnormal renal ultrasound Primary hypertension ([facility]/HCC)- Primary Unspecified essential hypertension Stage 3a chronic kidney disease (HCC) ([facility]/HCC) Tobacco dependency Tobacco use disorder Bipolar 2 disorder ([facility]/HCC) Other bipolar disorders Allergic reaction to bee sting Screening for hyperlipidemia- Primary Screening for lipoid disorders Screening for diabetes mellitus Primary hypertension ([facility]/HCC) Unspecified essential hypertension Tobacco dependency Tobacco [...] Other bipolar disorders documented in this encounter [facility] LawnPnylxbsadv00-53-3109 History of Present illness Narrative* Rosita Garza [...] Resulting Agency [facility] CKD: Follows closely with Nephrology. Avoid [...] Visit Stage 3a chronic kidney disease (HCC) ([facility]) Follows closely with Nephrology. Avoid NSAIDS, Nephrotoxic agents. Most recent creatinine 1.60 eGFR: 33 Primary hypertension ([facility]/HCC) - Primary Currently taking losartan 100mg [...] (Flexeril) 10 MG tablet documented in this encounterCox Walnut LawnEetnizyogh30-98-5305 Telephone encounter Note* Telephone Encounter - SHENA Stubbs - 05/27/2024 3:10 PM EST Spoke with patient regarding dexa scan results. Patient wishes to start using fosamax weekly. We discussed how to take and issue or concerns regarding acid reflux. Patient would like to try and if necessary may need to change to IV infusion of prolia [facility] [id number] Miscellaneous Notes* Telephone Encounter - SHENA Stubbs - 05/27/2024 3:10 PM EST Spoke with patient regarding dexa scan results. Patient wishes to start using fosamax weekly. We discussed how to take and issue or concerns regarding acid reflux. Patient would like to try and if necessary may need to change to IV infusion of prolia documented in this encounterCox Walnut LawnVqkalzmyyn75-57-7107 History of Present illness Narrative* SHENA Stubbs [...] [Sulfamethoxazole-Trimethoprim] Bee Pollen Bee Venom Hives [place] Flavor Walnuts Ciprofloxacin Hives Codeine Depakote [Valproic Acid] Dilaudid [Hydromorphone] E.E.S. [Erythromycin] Hydrocodone-Acetaminophen Lyrica [Pregabalin] Phenergan [Promethazine] Sulfamethoxazole Hives PROBLEMS Active Ambulatory Problems Diagnosis Date Noted Stage 3a chronic kidney disease (HCC) ([facility]) 06/16/2023 Primary hypertension ([facility]/HCC) 06/16/2023 Migraine without aura and without status migrainosus, not intractable ([facility]) 06/16/2023 Tobacco dependency 06/16/2023 Anxiety 07/28/2021 Allergy to nuts (other than peanuts) 08/18/2023 Abnormal renal ultrasound 08/18/2023 Bipolar 2 disorder ([facility]/HCC) 11/17/2023 Screening for hyperlipidemia 02/12/2024 Screening for diabetes mellitus 02/12/2024 Class 1 obesity due to excess calories without serious comorbidity with body mass index (BMI) of 33.0 to 33.9 in adult 02/12/2024 Resolved Ambulatory Problems Diagnosis Date Noted No Resolved Ambulatory Problems Past Medical History: Diagnosis Date Abnormal foot pulse Anxiety and depression ([facility]) Arthritis Atypical migraine ([facility]) Back problem Back spasm Blood pressure elevated without history of HTN Depression with anxiety Dry mouth Elevated serum creatinine History of IBS Hormone replacement therapy (postmenopausal) Irritable bowel syndrome with diarrhea Irritable bowel syndrome with diarrhea Kidney disease Migraine headache ([facility]) Migraines ([facility]/HCC) Multiple sclerosis ([facility]) Multiple sclerosis ([facility]) Onychomycosis PTSD (post-traumatic stress disorder) ([facility]) Stomach problems Urinary frequency Vision impairment HISTORY PAST MEDICAL HISTORY SOCIAL HISTORY Past Medical History: Diagnosis Date Abnormal foot pulse Anxiety and depression ([facility]/HCC) Arthritis Atypical migraine ([facility]) Back problem Back spasm Blood pressure elevated without history of HTN Depression with anxiety Dry mouth Elevated serum creatinine History of IBS Hormone replacement therapy (postmenopausal) Irritable bowel syndrome with diarrhea Irritable bowel syndrome with diarrhea Kidney disease Migraine headache ([facility]) Migraines ([facility]/HCC) Multiple sclerosis ([facility]) Multiple sclerosis ([facility]) Onychomycosis PTSD (post-traumatic stress disorder) ([facility]) Stomach problems Urinary frequency Vision impairment Social [...] nursing note reviewed. Exam conducted with a academic affairs vice president present. Vitals: Estimated body mass index is [...] behalf of: SHENA Stubbs documented in this encounterCox Walnut LawnIkxilgqvxw03-74-0796 History of Present illness Narrative* Rosita Garza [...] Problem(s): Bipolar 2 disorder (CMS/HCC) Follows in [place]. Mood is stable, denies depressive symptoms. On [...] lozenge Bipolar 2 disorder (CMS/HCC) Follows in [place]. Mood is stable, denies depressive symptoms. On [...] options for weight loss. documented in this [facility]09-11-2024 Instructions* Patient Instructions* Rosita Garza NP [...] of vigorous aerobic activity documented in this [facility]07-18-2022 Evaluation note* Encounter Date Diagnosis Assessment Notes Treatment Notes Treatment Clinical Notes Jan, GERD (gastroesophageal reflux di sease) (ICD-10 - K21.9) [employer] Other 07-07-2022 Evaluation note* Encounter Date Diagnosis Assessment Notes Treatment Notes Treatment Clinical Notes Jan, Diarrhea (ICD-10 - R19.7) Continue Dicyclomine Jan,GERD (gastroesophageal reflux disease) (ICD-10 - K21.9) Continue Omeprazole without change [employer] Other 04-29-2022 Evaluation note* Encounter Date Diagnosis Assessment Notes Treatment Notes Treatment Clinical Notes Oct, GERD (gastroesophageal reflux di sease) (ICD-10 - K21.9) [employer] Other 04-05-2022 Evaluation note* Encounter Date Diagnosis Assessment Notes Treatment Notes Treatment Clinical Notes Oct, Diarrhea, unspecified (ICD-10 - R19.7) CONTINUE DICYCLOMINE DIRECTED RTO 3 MONTHS Oct,GERD (gastroesophageal reflux disease) (ICD-10 - K21.9)STOP CARAFATE [employer] Other 12-30-2021 Evaluation note* Encounter Date Diagnosis [...] nonstick telfa -After 48 hours 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 Recommended that she continue with [id number] oral anti-inflammatories. Informed her that she can [...] 4 weeks to check on her progress. [employer] Other 09-26-2014 History general Narrative - Reported* [...] aboveHospitalization HistoryMS Hospitalization HistoryTBH OBSERVATION FOR ANGINA [employer] Other 09-26-2014 History general Narrative - Reported* [...] Historysee aboveHospitalization HistoryMSHospitalization HistoryTBH OBSERVATION FOR ANGINA [employer] Other Evaluation noteNo InformationNortPenn State Health IActive Other Evaluation note* Diagnosis Onset Date Resolution Status Chronic kidney disease, stage 3b acuteHypertensive nephropathyacuteLesion of left ruby kidneyacute [facility] Work Phone: Evaluation note* Diagnosis Onset Date Resolution Status Chronic kidney disease, stage 3b acuteHypertensive nephropathyacuteHypomagnesemiaacuteLesion of left ruby kidneyacute [facility] Work Phone: Evaluation note* Diagnosis [...] hypertension Stage 3a chronic kidney disease (HCC) ([facility]/HCC) Class 1 obesity due to excess calories without serious comorbidity with body mass index (BMI) of 33.0 to 33.9 in adult Tobacco dependency Tobacco use disorder Bipolar 2 disorder (CMS/HCC) Other bipolar disorders [facility]* Diagnosis Primary hypertension (CMS/HCC)- Primary Unspecified essential hypertension Stage 3a chronic kidney disease (HCC) ([facility]/HCC) Migraine without aura and without status migrainosus, not intractable (CMS/HCC) Tobacco dependency Tobacco use disorder Primary hypertension (CMS/HCC)- Primary Unspecified essential hypertension Stage 3a chronic kidney disease (HCC) (CMS/HCC) Abnormal renal ultrasound Primary hypertension (CMS/HCC)- Primary Unspecified essential hypertension Stage 3a chronic kidney disease (HCC) (CMS/HCC) Tobacco dependency Tobacco use disorder Bipolar 2 disorder ([facility]/HCC) Other bipolar disorders Allergic reaction to bee sting Screening for hyperlipidemia- Primary Screening for lipoid disorders Screening for diabetes mellitus Primary hypertension ([facility]/HCC) Unspecified essential hypertension Tobacco dependency Tobacco [...] disorder (CMS/HCC) Other bipolar disorders Primary hypertension ([facility]/HCC)- Primary Unspecified essential hypertension Stage 3a chronic kidney disease (HCC) ([facility]/HCC) Class 1 obesity due to excess calories without serious comorbidity with body mass index (BMI) of 33.0 to 33.9 in adult Screening for hyperlipidemia Screening for lipoid disorders Tobacco dependency Tobacco use disorder Bipolar 2 disorder ([facility]/HCC) Other bipolar disorders Migraine without aura and without status migrainosus, not intractable ([facility]/HCC) Back spasm Other symptoms referable to back documented [facility] encounter [facility]* Diagnosis Onset Date Resolution Status Admit Date Chronic kidney disease, stage 3b acuteFebruary 2024 3:52pmCigarette smokeracuteFebruary 2024 3:52pm Hypertensive nephropathyacuteFebruary 2024 3:52pmHypomagnesemiaacute February 2024 3:52pmLesion of left ruby kidneyacuteFebruary 2024 3:52pm [facility] Work Phone: Evaluation note* Diagnosis Onset Date Resolution Status Admit Date Chronic kidney disease, stage 3b acuteJune 2024 3:51pmCigarette smokeracuteJune 2024 3:51pm Hypertensive nephropathyacuteJun2024 3:51pmHypomagnesemiaacuteJune 2024 3:51pmLesion of left ruby kidneyacuteJune 2024 3:51pm [facility] Work Phone: Evaluation note* Diagnosis Onset Date Resolution Status Admit Date Asthma acuteOctober 2024 4:46pmChronic kidney disease, stage 3bacuteOctober 2024 4:46pmEssential hypertensionacuteOctober 2024 4:46pmFormer smoker acuteOctober 2024 4:46pmMigraineacuteOctober 2024 4:46pm [facility] Work Phone: Reason for referral (narrative)No reason for referral information availableUniversity Hospitals [facility] Work Phone: Summary Purpose Family [...] stage 3b Hypertensive nephropathy Lesion of left ruby kidney Chief Complaint RENAL 3 MONTH F/UReason for VisitChronic kidney disease, stage 3b Hypertensive nephropathy Hypomagnesemia Lesion of left ruby kidney Chief Complaint Admit Date July 29, 2024 3 :50pm RENAL 4 MONTH F/U August 17, 2024 3 :52pm Reason for Visit Admit Date Chronic kidney disease, stage 3b 2024 3:52pm Cigarette smoker August 17, 2024 3 :52pm Hypertensive nephropathy August 17, 2 025 3:52pm Hypomagnesemia August 17, 2024 3 :52pm Lesion of left ruby kidney August 3:52pm Chief Complaint Admit Date October 22, 2024 3:0 8pm RENAL 4 MONTHS December 21, 2024 3:51 pm Reason for Visit Admit Date Chronic kidney disease, stage 3b December 212024 3:51pm Cigarette smoker December 21, 2024 3:51 pm Hypertensive nephropathy December 21, 2024 3:51pm Hypomagnesemia December 21, 2024 3:51 pm Lesion of left ruby kidney December 21, 2024 3:51pm Chief Complaint [...] content) DATE CREATED AUTHOR 08/08/[address] [facility] DATE CREATED AUTHOR AUTHOR'S ORGANIZ ATION 08/17/2022 [facility] DATE CREATED AUTHOR AUTHOR'S ORGANIZ ATION 11/27/2022 [facility] DATE CREATED AUTHOR AUTHOR'S ORGANIZ ATION 05/03/2025 [facility] EPIC REASON FOR VISIT (unrecogniz ed section and content) ReasonCommentsWell Women VisitReasonCommentsFollow-upReasonCommentsHypertension ReasonCommentsMed RefillReasonCommentsGynecologic Exam Care Teams (unrecognized sec tion and content) Team MemberRelationshipSpecialtyStart DateEnd Date Shaikh Hernandes MD [address] [place] [address] PCP - GeneralInternal Medicine08/11/23 Margarette Estevez NP [address] [place] [address] Nurse PractitionerFamnly Iqhvlmwy66/13/23 Team Status: Active Member Role Status Dates Ethan Licona DO Primary Care Provider Active Team Status: Active Member Role Status Dates Chinmay Manning MD Attending Provider Active Start: September 25, 2023 Team Status: Inactive Member Role Status Dates Debby Dominguez MD Attending Provider Active Star t: December 09, 2023 End: December 08Lauren Mcl[facility]ro[facility] ProviderActiveStart: December 09, 2023 End: December 09, [...] Hernandes MD [address] [place] [address] PCP - GeneralInternal Medicine08/11/23 Margarette Estevez NP [address] [place] [address] Nurse PractitionerDorminy [facility]05/26/23Team MemberRelationshipSpecialtyStart DateEnd Date Shaikh Hernandes MD [address] [place] [address] PCP - GeneralInternal Medicine08/11/23 Margarette Estevez NP [address] [place] [address] Nurse PractitionerDorminy Medical Center05/26/23Team MemberRelationshipSpecialtyStart DateEnd Date Shaikh Hernandes MD [address] [place] [address] [facility]08/11/23 Margarette Estevez NP [address] [place] [address] Nurse PractitionerDorminy Medical Center05/26/23Te MemberRelationshipSpecialtyStart DateEnd Date Shaikh Hernandes MD [address] [place] [address] [facility] - [facility]08/11/23 Shaikh Hernandes MD [address] [place] [address] PCP - [facility] Yrsfcmmeyj66/1/24 Margarette Estevez NP [address] [place] [address] Nurse PractitionerDorminy [facility] Center05/26/23Te MemberRelationshipSpecialtyStart DateEnd Date Shaikh Hernandes MD [address] [place] [address] PCP - GeneralInternal Medicine08/11/23 Margarette Estevez NP [address] [place] [address] Nurse PractitionerDorminy Medical Center05/26/23Te MemberRelationshipSpecialtyStart DateEnd Date Shaikh Hernandes MD [address] [place] [address] PCP - [facility]08/11/23 Shaikh Hernandes MD [address] [place] [address] PCP - [place] Pckdotanzu26/1/24 Margarette Estevez NP [address] [place] [address] Nurse PractitionerD[facility]05/26/23Te MemberRelationshipSpecialtyStart DateEnd Date Shaikh Hernandes MD [address] [place] [address] [facility] - [facility]08/11/23 Shaikh Hernandes MD [address] [place] [address] PCP - [facility]04/13/24 Margarette Estevez NP [address] [place] [address] Nurse PractitionerD[facility]05/26/23Team MemberRelationshipSpecialtyStart DateEnd Date Shaikh Hernandes MD [address] [place] [address] PCP - [facility]08/11/23 Margarette Estevez NP [address] [place] [address] Nurse PractitionerD[facility]iny Medical Center05/26/23 Team Status: Active Member Role [...] August 17, 2024 End: August 17amie Garza NP-Replaced by [facility] Care ProviderActive Start: August 17, 2024 End: August 17, 2024Team MemberRelationshipSpecialtyStart DateEnd Date Shaikh Hernandes MD [address] [place] [address] PCP - GeneralInternal Medicine08/11/23 Shaikh Hernandes MD [address] [place] [address] PCP - [place] Atyigheefb41/1/24 Margarette Estevez NP [address] [place] [address] Nurse PractitionerD[facility]iny Medical Center05/26/23Team MemberRelationshipSpecialtyStart DateEnd Date Shaikh Hernandes MD [address] [place] [address] PCP - [facility]08/11/23 Shaikh Hernandes MD [address] [place] [address] PCP - [facility]04/13/24 Margarette Estevez NP [address] [place] [address] Nurse PractitionerDorminy Medical Center05/26/23 Team Status: Active Member Role [...] 21, 2024 End: December 21, 2024Lisa Murphy [facility] ProviderActiveStart: December 21, 2024 End: December 21, 2024Team MemberRelationshipSpecialtyStart DateEnd Date Shaikh Hernandes MD [address] [place] [address] PCP - GeneralInternal Medicine08/11/23 Margarette Estevez NP [address] [place] [address] Nurse PractitionerD[facility] Medical Center05/26/23Team MemberRelationshipSpecialtyStart DateEnd Date Shaikh Hernandes MD [address] [place] [address] PCP - GeneralInternal Medicine08/11/23 Margarette Estevez NP [address] [place] [address] Nurse PractitionerDorminy Medical Center05/26/23Team MemberRelationshipSpecialtyStart DateEnd Date Shaikh Hernandes MD [address] [place] [address] PCP - GeneralInternal Medicine08/11/23 Margarette Estevez NP [address] [place] [address] Nurse PractitionerDorminy Medical Center05/26/23Team MemberRelationshipSpecialtyStart DateEnd Date Shaikh Hernandes MD [address] [place] [address] PCP - GeneralPhoenix [facility] Medical Centernal Medicine08/11/23 Margarette Estevez NP [address] [place] [address] Nurse PractitionerDorminy Medical Center05/26/23Team MemberRelationshipSpecialtyStart DateEnd Date Shaikh Hernandes MD [address] [place] [address] PCP - [facility]08/11/23 Margarette Estevez NP [address] [place] [address] Nurse PractitionerD[facility]iny Medical Center05/26/23Team MemberRelationshipSpecialtyStart DateEnd Date Shaikh Hernandes MD [address] [place] [address] PCP - [facility]08/11/23 Margarette Estevez NP [address] [place] [address] Nurse PractitionerDorminy Medical Center05/26/23 Team Status: Active Member Role Status Dates NANCY Chavira Primary Care Provider Active Team Status: Inactive Member Role Status Dates Margarette Estevez NP-Janice Primary Care Provider Active Start: April 25, 2025 End: April 25, 2025Margarette Estevez NP-CAttenupmc [facility] ProviderActiveStart: April 25, 2025 End: April 25, 2025Team MemberRelationshipSpecialtyStart DateEnd Date Madhu Murphy MD PCP - GeneralFamily Medicine02/22/25 Margarette Estevez NP Nurse PractitionerBay[facility] Center Pzivmbyo96/13/23Team MemberRelationshipSpecialtyStart DateEnd Date Madhu Murphy MD PCP - GeneralFamily Medicine02/22/25 Margarette Estevez NP Nurse PractitionerBaystate Medical Center Bmmtiybx01/13/23Team MemberRelationshipSpecialtyStart DateEnd Date Madhu Murphy MD PCP - GeneralFort [facility] Hospitally Medicine02/22/25 Margarette Estevez NP Nurse PractitionerDorminy Medical Center05/26/23Team MemberRelationshipSpecialtyStart DateEnd Date Madhu Murphy MD PCP - GeneralFamily Rsxoqtij56/1/231 Shaikh Hernandes MD PCP - GeneralInternal Medicine Shaikh Hernandes MD [address] [place] [address] PCP - [place] Npcdfqkqfa64/1/244 Madhu Murphy MD [address] [place] [address] PCP - GeneralBaystate Medical Center Medicine02/22/25 Margarette Estevez, BARK SPUDDER Nurse PractitionerDorminy Medical Center05/26/23Team MemberRelationshipSpecialtyStart DateEnd Date Shaikh Hernandes MD PCP - GeneralInternal Medicine Shaikh Hernandes MD [address] [place] [address] PCP - [place] Jqhvyycnjw79/1/244 Madhu Murphy MD [address] [place] [address] PCP - GeneralDorminy Medical Center02/22/25 Margarette Estevez, BARK SPUDDER Nurse PractitionerDorminy Medical Center05/26/23Te MemberRelationshipSpecialtyStart DateEnd Date Shaikh Hernandes MD PCP - GeneralPhoenix Indian Medical Centernal Medicine Shaikh Hernandes MD [address] [place] [address] PCP - [place] Uwdvwodurk91/1/244 Madhu Murphy MD [address] [place] [address] PCP - GeneralBaystate Medical Center Medicine02/22/25 Margarette Estevez NP Nurse PractitionerFacutler army community hospital Mbcpkebh23/13/23 Goals (unrecognized section and content) Goals may [...] BE BASED ON THE PRIMARY CLINICAL RECORDS. [employer] provides no warranty or guarantee of the accuracy or completeness of information in this document.
== END 2025-06-21 10:26 | disposition home or self-care (01) ==
PROVIDERS: PCP Nurse Practitioner; Visit Provider Internal Medicine Nephrology
DX: F17.210 Nicotine dependence, cigarettes, uncomplicated (principal); E83.42 Hypomagnesemia; N28.9 Disorder of kidney and ureter, unspecified; I12.9 Hypertensive chronic kidney disease with stage 1 through stage 4 chronic kidney disease, or unspecified chronic kidney disease; N18.32 Chronic kidney disease, stage 3b
CPT/HCPCS: 36415; 80069; 81003; 82306; 82570; 83735; 83970; 84156; 84550; 85027